=== PATIENT | female | born 1955 | race Caucasian/White ===

== ENCOUNTER 2016-06-09 09:08 | Inpatient (IN) | payer MEDICAID ==
[~2016-06-09] VITALS: Ht 154.9 cm; Wt 105.0 kg
[~2016-06-09 09:08] MED LIST: AMLO-147 PO; ASPI81TA3 PO; CLON0.2T5 PO; CLON0.5T4 PO; CRES10 PO; DOXY100T2 PO; ESCI20TA PO; FAMO20TA18 PO; FURO20TA3 PO; HYDR-3671 PO; LANT3I SC; Miconazole VAG; NEBI5TAB9 PO; NYST15PO4 TOP
--- NOTE | 2016-06-09 10:56 | RADRPT ---
PROCEDURE: XR Chest. CLINICAL INDICATION: Chest pain TECHNIQUE: Chest AP portable. COMPARISON: 12/20/2015 FINDINGS: Sternotomy and CABG. The mediastinal structures are unremarkable. There is calcification of the thoracic aorta (consiste nt with atherosclerosis). There is moderate cardiac enlargement. There is mild pulmonary venous hy pertension. No consolidation is identified. The pleural spaces are unremarkable. There are senesc ent changes of the axial skeleton. IMPRESSION: Moderate cardiac enlargement. Mild pulmonary venous hypertension. RPTAT: HGDB .Durga Mahajan MD, MD Date Time Electronically viewed and signed by .Durga Mahajan MD, MD on 06/09/2016 10:55 .B/
[2016-06-09 11:23] LABS: BASOPHILS % 0.4 % (0.0-2.0); EOSINOPHILS # 0.1 10^3/ul (0.0-0.5); EOSINOPHILS % 1.4 % (0.0-7.0); HEMATOCRIT 33.9 % (37.0-47.0); HEMOGLOBIN 11.3 g/dl (12.0-16.0); LYMPHOCYTES # 1.8 10^3/ul (0.8-2.9); LYMPHOCYTES % 24.8 % (15.0-51.0); MEAN CORPUSCULAR HEMOGLOBIN 31.9 pg (29.0-33.0); MEAN CORPUSCULAR HGB CONC 33.1 g/dl (32.0-37.0); MEAN CORPUSCULAR VOLUME 96.3 fl (82.0-101.0); MEAN PLATELET VOLUME 8.9 fl (7.4-10.4); MONOCYTE # 0.6 10^3/ul (0.3-0.9); MONOCYTES % 8.4 % (0.0-11.0); NEUTROPHIL # 4.6 10^3/ul (1.6-7.5); PLATELET COUNT 187 10^3/UL (140-440); RED BLOOD COUNT 3.52 10^6/ul (4.20-5.40); RED CELL DISTRIBUTION WIDTH 17.2 % (11.5-14.5); UNCORRECTED WBC 7.1 10^3/ul (4.8-10.8); WHITE BLOOD COUNT 7.1 10^3/ul (4.8-10.8)
[2016-06-09 11:26] LABS: ADD UMIC YES; INR 0.9; PROTIME 12.1 Sec (12.2-14.2); PT RATIO 0.9; URINE BILIRUBIN (Dip) NEGATIVE (NEGATIVE); URINE BLOOD (Dip) TRACE (NEGATIVE); URINE COLOR LT. YELLOW (YELLOW); URINE GLUCOSE (Dip) >=1000 % (NEGATIVE); URINE KETONES (Dip) NEGATIVE (NEGATIVE); URINE LEUKOCYTE ESTERASE (Dip) NEGATIVE (NEGATIVE); URINE NITRITE (Dip) NEGATIVE (NEGATIVE); URINE TOTAL PROTEIN (Dip) 2+ (NEGATIVE); URINE UROBILINOGEN (Dip) 0.2 E.U./dL (0.1-1.0)
[2016-06-09 11:27] LABS: PARTIAL THROMBOPLASTIN TIME 28.4 Sec (25.0-35.0)
[2016-06-09 11:29] LABS: ALBUMIN 3.4 g/dl (3.3-4.9)
[2016-06-09 11:30] LABS: CONDITION 1; LH ANALYZER COMMENTS 1
[2016-06-09 11:39] LABS: BACTERIA,URINE RARE; URINE RBCS 0-2 /HPF (0)
--- NOTE | 2016-06-09 11:39 | ERD ---
ER Documentation Chief Complaint Date/Time DATE: 06/09/16 TIME: 11:30 Chief Complaint UNABLE TO URINATE FOR 2 DAYS,FLANK PAIN,HX OF KIDNEY STENT HPI Patient is a difficult historian but is 60 years old history of CABG who presents the emergency room with multiple complaints. Her main complaint is that she is unable to urinate for 2 days. She describes right-sided flank pain that is dull and constant. She states she has a history of kidney stones and a kidney stent. She has also describing shortness of breath and thinks that she "might have fluid on her lungs ". She denies any lower extremity swelling, no chest pain, no dyspnea on exertion. ROS All systems reviewed and are negative except as per history of present illness. Medications Home Meds Active Scripts Rosuvastatin Calcium* (Crestor*) 10 Mg Tablet, 10 MG PO QHS, #30 TAB 2 Refills Prov:RONNYHORACIO Maria 12/27/15 Reported Medications Canagliflozin (Invokana) 300 Mg Tablet, 300 MG PO DAILY, TAB 06/09/16 Gabapentin* (Gabapentin*) 600 Mg Tablet, 600 MG PO TID, #90 TAB 06/09/16 Pregabalin* (Lyrica*) 150 Mg Capsule, 150 MG PO QHS, CAP 06/09/16 Valacyclovir Hcl* (Valacyclovir Hcl*) 500 Mg Tablet, 1000 MG PO BID, TAB 06/09/16 Insulin Lispro (Humalog) 100 Unit/1 Ml Cartridge, 25 UNIT SQ TID 06/09/16 Insulin Glargine* (Lantus*) 100 Unit/Ml Soln, 56 UNIT SC BID, #1 VIAL 06/09/16 Esomeprazole Mag Trihydrate (Nexium) 40 Mg Capsule.dr, 40 MG PO DAILY, #30 CAP 06/09/16 Lorazepam* (Lorazepam*) 1 Mg Tablet, 1-2 MG PO QHS Y for ANXIETY, #30 TAB 06/09/16 Nebivolol Hcl* (Bystolic*) 20 Mg Tablet, 20 MG PO DAILY, #30 TAB 06/09/16 Aspirin* (Aspirin* EC) 81 Mg Tablet.dr, 81 MG PO DAILY, TAB 06/09/16 Clonidine Hcl* (Clonidine Hcl*) 0.1 Mg Tab, 0.1 MG PO QHS, TAB 06/09/16 Discontinued Reported Medications Clonidine Hcl* (Clonidine Hcl*) 0.2 Mg Tablet, 0.2 MG PO TID Y for ELEVATED BLOOD PRESSURE, TAB 12/20/15 Discontinued Scripts Furosemide* (Furosemide*) 20 Mg Tablet, 20 MG PO DAILY, #60 TAB 2 Refills Prov:RONNYHORACIO S. 12/27/15 Doxycycline* (Vibramycin*) 100 Mg Tab, 100 MG PO BID for 7 Days, #14 TAB Prov:RONNYHORACIO S. 12/27/15 Famotidine* (Famotidine*) 20 Mg Tablet, 20 MG PO Q12, #60 TAB 3 Refills Prov:BETZAIDAHORACIO S. 12/27/15 Insulin Glargine* (Lantus*) 100 Unit/Ml Soln, 46 UNIT SC BID, #60 3 Refills Prov:BETZAIDAHORACIO S. 12/27/15 [Miconazole] 1 SUPP SUPP No Conflict Check, 1 SUPP VAG HS for 30 Days, #1 2 Refills Prov:RONNYHORACIO S. 12/27/15 Nebivolol* (Bystolic*) 5 Mg Tab, 5 MG PO BID, #60 TAB 4 Refills Prov:BETZAIDAHORACIO S. 12/27/15 Nystatin* (Nystop*) 15 Gm Powder, 1 APPLIC TOP BID for 30 Days Prov:RONNYHORACIO S. 12/27/15 Hydralazine Hcl* (Hydralazine Hcl*) 25 Mg Tab, 25 MG PO Q8, #90 TAB 4 Refills Prov:RONNYHORACIO S. 12/27/15 Amlodipine Besylate* (Amlodipine Besylate*) 10 Mg Tablet, 10 MG PO DAILY, #30 TAB 3 Refills Prov:BETZAIDAHORACIO S. 12/27/15 Clonazepam* (Clonazepam*) 0.5 Mg Tablet, 0.5 MG PO QHS for 30 Days, #30 TAB 3 Refills Prov:RONNYHORACIO S. 12/27/15 Escitalopram Oxalate* (Lexapro*) 20 Mg Tablet, 20 MG PO DAILY, #30 TAB 3 Refills Prov:RONNYHORACIO S. 12/27/15 Aspirin* (Aspirin* Chew) 81 Mg Tab.chew, 81 MG PO DAILY, #30 TAB.CHEW 2 Refills Prov:HORACIO JEFFERSON. 12/27/15 Allergies Allergies: Coded Allergies: Sulfa (Sulfonamide Antibiotics) (Verified Allergy, Mild, 06/09/16) PMhx/Soc History of Surgery: Yes (CABG) Anesthesia Reaction: No Hx Respiratory Disorders: No Hx Cardiac Disorders: Yes (ID) Hx Psychiatric Problems: Yes (ANXIETY.) Hx Miscellaneous Medical Probl: Yes (CAD s/p CABG, DM2, neuropathy, renal stent , HTN, morbid obesity, esotropia) Hx Alcohol Use: No Hx Substance Use: No Hx Tobacco Use: No Smoking Status: Never smoker FmHx Family History: No diabetes Physical Exam Vitals Vital Signs Date Time Temp Pulse Resp B/P Pulse Ox O2 Delivery O2 Flow Rate FiO2 06/09/16 11:21 96.7 70 16 186/76 100 Room Air 06/09/16 09:13 98.1 63 18 204/86 96 Physical Exam General: Obese female, no distress Head: Normocephalic, atraumatic. Eyes: Pupils equally reactive, EOM intact ENT: Moist mucous membranes Neck: Supple, no lymphadenopathy Respiratory: Lungs clear bilaterally, no distress Cardiovascular: RRR, no murmurs, rubs, or gallops Abdominal: Soft, non-tender, non-distended, no peritoneal signs : Deferred MSK: No edema, no unilateral swelling, 5/5 strength Neurologic: Alert and oriented, moving all extremities, normal speech, no focal weakness, no cerebellar signs Skin: No rash Psych: Normal mood Result Diagram: 06/09/16 1015 06/09/16 1015 Results 24 hrs Laboratory Tests Test 06/09/16 10:15 Activated Partial Thromboplast Time 28.4Sec Alanine Aminotransferase (ALT/SGPT) 27IU/L Albumin 3.4g/dl Albumin/Globulin Ratio 1.13 Alkaline Phosphatase 73IU/L Anion Gap 16 Aspartate Amino Transf (AST/SGOT) 15IU/L B-Type Natriuretic Peptide 2220PG/ML Basophils # 0.010^3/ul Basophils % 0.4% Blood Morphology Comment Blood Urea Nitrogen 31mg/dl Calcium Level 8.2mg/dl Carbon Dioxide Level 25mmol/L Chloride Level 104mmol/L Creatinine 2.04mg/dl Direct Bilirubin 0.00mg/dl Eosinophils # 0.110^3/ul Eosinophils % 1.4% Globulin 3.00g/dl Glucose Level 198mg/dl Hematocrit 33.9% Hemoglobin 11.3g/dl INR International Normalized Ratio 0.90 Indirect Bilirubin 0.0mg/dl Lipase 151U/L Lymphocytes # 1.810^3/ul Lymphocytes % 24.8% Mean Corpuscular Hemoglobin 31.9pg Mean Corpuscular Hemoglobin Concent 33.1g/dl Mean Corpuscular Volume 96.3fl Mean Platelet Volume 8.9fl Monocytes # 0.610^3/ul Monocytes % 8.4% Neutrophils # 4.610^3/ul Neutrophils % 65.0% Nucleated Red Blood Cells # 0.010^3/ul Nucleated Red Blood Cells % 0.0/100WBC Platelet Count 77043^3/UL Potassium Level 4.5mmol/L Prothrombin Time 12.1Sec Prothrombin Time Ratio 0.9 Red Blood Count 3.5210^6/ul Red Cell Distribution Width 17.2% Sodium Level 140mmol/L Total Bilirubin 0.0mg/dl Total Protein 6.4g/dl Urine Amorphous Urates FEW Urine Bacteria RARE Urine Bilirubin NEGATIVE Urine Clarity CLEAR Urine Color LT. YELLOW Urine Epithelial Cells OCCASIONAL Urine Glucose >=1000% Urine Hemoglobin TRACE Urine Ketones NEGATIVE Urine Leukocyte Esterase NEGATIVE Urine Microscopic RBC 0-2/HPF Urine Microscopic WBC NONE SEEN/HPF Urine Nitrite NEGATIVE Urine Specific Coleman 1.020 Urine Total Protein 2+ Urine Urobilinogen 0.2 E.U./dL Urine pH 6.0 White Blood Count 7.110^3/ul Current Medications Medications (Trade) Dose Ordered Sig/Selivn Route PRN Reason Start Time Stop Time Status Last Admin Dose Admin Furosemide (Lasix) 40 mg ONCE ONCE IV 06/09/16 12:30 06/09/16 12:31 DC Ondansetron HCl (Zofran Inj) 4 mg BRIDGE ORDER PRN IV NAUSEA AND/OR VOMITING 06/09/16 12:30 06/10/16 12:29 Acetaminophen (Tylenol Tab) 650 mg ER BRIDGE PRN PO MILD PAIN/FEVER 06/09/16 12:30 06/10/16 12:29 Procedures/MDM EKG, MONITORS, & DIAGNOSTIC IMAGING: EKG: I reviewed and interpreted a 12-lead EKG. Rhythm: Normal sinus rhythm Ectopy: None Intervals: No abnormalities ST segments: No elevations or depressions T waves: No contiguous inversions Chest x-ray: I reviewed and interpreted a 1 view of the chest Mediastinum: No enlargement Cardiac silhouette: No cardiomegaly Airspace: Pulmonary edema Bones: No evidence of fracture CT abdomen and pelvis: IMPRESSION: 1. Mild atelectasis at the lung bases posteriorly. 2. Prior cardiac surgery. 3. Atherosclerosis. 4. Calcified fibroids in the uterus. 5. Large right adnexal mass measuring 6.7 x 8.8 x 7.4 cm which may be due to an ovarian mass or pedunculated fibroid. Correlation with pelvic ultrasound or MRI should be considered. 6. Flynn catheter in the bladder. 7. Degenerative changes of the spine. Pelvic US: Pending and to be followed by admitting MD LAB INTERPRETATION: Creatinine is slightly above baseline of 1.5, the patient's BNP is slightly elevated but again consistent with baseline. MEDICAL DECISION MAKING: The patient has myriad complaints. Her main complaint is urinary retention likely secondary to age or idiopathic etiology. She denies any new medications other than Lyrica. Adverse reactions include urinary incontinence but not necessarily retention. The patient does have a history of kidney stone, consider stent migration other acute intra-abdominal process such as mass. Given her age CT imaging would be appropriate. She also thinks that there is fluid on her lungs but does not describe any evidence of CHF. Her lungs are clear and nonlabored. Chest x-ray, troponin, EKG, BNP would be appropriate. ER COURSE: Output of greater than 900 cc of urine The patient has a slight bump in creatinine, the patient has evidence of mild pulmonary edema but BNP is consistent with baseline. No evidence of respiratory failure, her shortness of breath is minimal. The patient was given Lasix. This is not consistent with decompensated heart failure. Outpatient management for this would be reasonable. However the patient has a large adnexal mass. This is concerning for malignancy. No evidence of PE. A pelvic ultrasound has been ordered. Her primary care physician has visited her at the bedside and would like to admit the patient for MRI imaging and further workup. I believe this is reasonable. While the patient is being given Lasix for mild volume overload I believe this is an outpatient process therefore I do not believe the patient requires telemetry monitoring. No evidence of ACS I kept the patient and/or family informed of laboratory and diagnostic imaging results throughout the emergency room course. DISPOSITION PLAN: Medical surgical admission CONSULTATION: Accepting care team and consultations: I discussed the current laboratory data, diagnostic imaging and emergency care provided. Admitting team: Dr. Suarez Admitting team indication: Insurance directed Departure Diagnosis: Primary Impression: Retention of urine Additional Impressions: Pulmonary edema Chronicity: chronic Qualified Code: J81.1 - Chronic pulmonary edema Acute renal insufficiency Adnexal mass Condition: Stable DAYNE SALAS MD Jun 09, 2016 11:38
[2016-06-09] MEDS ORDERED: CLON-379 PO (11:40)
[2016-06-09] MEDS ORDERED: ASPI-664 PO (11:40)
[2016-06-09] MEDS ORDERED: NEBI20TA2 PO (11:41)
[2016-06-09] MEDS ORDERED: LORA1TAB PO (11:42)
[2016-06-09 11:44] LABS: POTASSIUM 4.5 mmol/L (3.5-5.1)
[2016-06-09 11:45] LABS: ALBUMIN/GLOBULIN RATIO 1.13; CALCIUM 8.2 mg/dl (8.4-10.2); CREATININE 2.04 mg/dl (0.44-1.00); TOTAL PROTEIN 6.4 g/dl (6.1-8.1)
[2016-06-09] MEDS ORDERED: LANT3I SC (11:46)
[2016-06-09] MEDS ORDERED: ESOM40CA PO (11:46)
[2016-06-09] MEDS ORDERED: INSU100C SQ (11:47)
[2016-06-09] MEDS ORDERED: VALA500T PO (11:48)
[2016-06-09] MEDS ORDERED: GABA-526 PO (11:49)
[2016-06-09] MEDS ORDERED: PREG150C PO (11:49)
[2016-06-09] MEDS ORDERED: CANA300T PO (11:51)
--- NOTE | 2016-06-09 11:56 | RADRPT ---
AMENDMENT: 06/12/2016 2:01:08 PM Ethan Villanueva MD Comparison is made with prior CT scan of the abdomen and pelvis dated 11/23/2009. The large right adnexal mass measures 6.7 x 8.8 x 7.4 cm on the current study and measured 3.7 x 4.6 x 4.8 cm on 11/23/2009. Call report: A call report of the findings was made to Dr. Suarez on 06/12/2016 at 0900 hours. PROCEDURE: CT Abdomen and Pelvis without contrast. CLINICAL INDICATION: Abdominal and pelvic pain. Flank pain. Inability to urinate for 2 days. TECHNIQUE: CT scan of the abdomen and pelvis without contrast was performed. Coronal and sagittal reformatted images were obtained from the axial source images. Images were reviewed on a high-[employer] PACS workstation. Total exam DLP is 1356.94 mGy-cm. CTDIvol is 23.50 mGy. One or more of the following dose reduction techniques were used: Automated exposure control, adjustment of the mA and/ or kV according to patient size, use of iterative reconstruction technique. COMPARISON: CT scan of the chest dated 12/27/2015. Renal ultrasound dated 12/25/2015. FINDINGS: There is mild atelectasis at both lung bases posteriorly. The lung bases are otherwise normal. The re is no pleural effusion or pericardial effusion. The heart size is normal. Epicardial pacing michael ctrodes and sternal wires are noted. The liver is normal in size and attenuation. There is no focal hepatic lesion. The gallbladder and bile ducts are normal. The spleen is normal in size. There is no focal splenic lesion. Both adrenals are normal with no enlargement or mass. The pancreas is unremarkable with no mass or evidence of pancreatitis. There is no renal mass or hydronephrosis. There is no renal calculus or ureteral calculus. The abdominal aorta is not dilated. There is calcification in the aorta consistent with atherosclero sis. There is no retroperitoneal lymphadenopathy or mass. There is no pelvic lymphadenopathy. Multiple uterine masses are present consistent with fibroids. Several of the fibroids are calcified. There is a large right adnexal mass measuring 6.7 x 8.8 x 7. 4 cm in AP, transverse, and cranial caudal dimensions which may be due to an ovarian mass or a pedun culated fibroid. There is a Flynn catheter in the urinary bladder. The periappendiceal region is unremarkable with no evidence of appendicitis. The bowel and mesentery are normal. There is no free fluid or free gas. There are degenerative changes of the spine. There is no fracture or lytic lesion. IMPRESSION: 1. Mild atelectasis at the lung bases posteriorly. 2. Prior cardiac surgery. 3. Atherosclerosis. 4. Calcified fibroids in the uterus. 5. Large right adnexal mass measuring 6.7 x 8.8 x 7.4 cm which may be due to an ovarian mass or ped unculated fibroid. Correlation with pelvic ultrasound or MRI should be considered. 6. Flynn catheter in the bladder. 7. Degenerative changes of the spine. RPTAT: QQ .Ethan Villanueva MD, Date Time Electronically viewed and signed by .Ethan Villanueva MD, on 06/12/2016 14:01 .R/
[2016-06-09] MEDS ORDERED: FUROSEMIDE 40 MG INJ IV ONE (12:30)
[2016-06-09] MEDS ORDERED: ACETAMINOPHEN 325 MG TAB PO PRN (12:30)
[2016-06-09] MEDS ORDERED: ONDANSETRON 4 MG INJ IV PRN (12:30)
--- NOTE | 2016-06-09 14:38 | RADRPT ---
PROCEDURE: US Pelvis CLINICAL INDICATION: right adnexal mass TECHNIQUE: Multiple sonographic images of the pelvis were obtained utilizing a transabdominal and endovaginal technique. The images were reviewed on a PACS workstation. COMPARISON: CT abdomen/pelvis from the same date FINDINGS: The uterus measures 8.3 x 4.1 x 8.6 cm. The endometrial echo complex is not visualized. Multiple dystrophic calcifications are noted in the myometrium measuring up to 4.3 cm which are like ly from degenerated fibroids. The right ovary measures 8.3 x 6.9 x 9.0 cm. The left ovary is not visualized. There is normal vascu lar flow in the right ovary. There is a complex multi septated lesion in the right ovary measuring up to 7.3 cm. Possible vascul ar flow is noted within the septations which are both thick and thin.. No significant pelvic free fluid is identified. IMPRESSION: Complex cystic lesion in the right ovary with multiple thickened and possibly vascular septations me asuring up to 7.3 cm, as above. This lesion correlates with the lesion seen in the right adnexa on the CT study from the same date and is concerning for malignancy. An MRI of the pelvis without and with intravenous contrast is recommended for further evaluation. Multiple dystrophic calcifications in the myometrium measuring up to 4.3 cm are likely from degenera vladimir fibroids. Nonvisualization of the endometrium and left ovary. RPTAT: EE Physician Nancy Date Time Electronically viewed and signed by Physician Nancy on 06/09/2016 14:38 /
[2016-06-09] MEDS ORDERED: LORAZEPAM 1 MG TAB PO PRN (18:00)
--- NOTE | 2016-06-09 18:21 | RADRPT ---
PROCEDURE: Renal US. CLINICAL INDICATION: Renal insufficiency TECHNIQUE: Multiple sonographic images of the kidneys were obtained. The images were reviewed on a PACS workstation. COMPARISON: December 25, 2015 FINDINGS: The right kidney measures 8.6 cm. The left kidney measures 10.4 cm. Increased cortical echogenicity is identified in both kidneys. No masses, stones or hydronephrosis are identified. The bladder is filled with a small amount of urine and has an unremarkable appearance. IMPRESSION: Small right kidney. Echogenic kidneys suggesting medical renal disease. RPTAT: AA .Christopher Roman MD, MD Date Time Electronically viewed and signed by .Christopher Roman MD, MD on 06/09/2016 18:20 .P/
[2016-06-09] MEDS ORDERED: GLUCOSE GEL 15 GRAM TUBE PO PRN ×2 (18:30)
[2016-06-09] MEDS ORDERED: DEXTROSE 50% 50 ML SYRINGE IV PRN ×2 (18:30)
[2016-06-09] MEDS ORDERED: GLUCOSE GEL 15 GRAM TUBE BUCCAL PRN (18:30)
[2016-06-09] MEDS ORDERED: GLUCAGON 1 MG INJ IM PRN (18:30)
--- NOTE | 2016-06-09 18:46 | HP ---
DATE OF ADMISSION: 06/09/2016 CHIEF COMPLAINT: Urinary retention. HISTORY OF PRESENT ILLNESS: This is a 60-year-old female with a past medical history of coronary ar marilin disease, status post CABG; history of diabetes; history of chronic kidney disease stage IV with a baseline creatinine around 2 mg/dL; history of renal artery stenosis, status post stent placement ; history of hypertension; morbid obesity; dyslipidemia; nystagmus who presents to [facility] with inability to urinate. The patient was noted over the last 2 days of having difficu lty urinating. She stated that she was unable to urinate. During this time, the patient also was d escribing increased shortness of breath, worsening lower extremity edema. As a result, she came int [facility]. Upon arrival, the patient had Flynn catheter placed with greater th an 900 mL of urinary output. The patient then had a CT scan of the abdomen and pelvis which showed findings of a 6 x 7 cm ovarian mass, calcified fibroid uterus and previous history of ____. A pelvi c ultrasound was obtained which showed a complex cystic lesion in the right ovary of 7.3 cm concerni ng for possible malignancy. There were also dystrophic calcifications in myometrium. The patient h ad a chest x-ray which showed findings of pulmonary congestion. The patient in the emergency room w as given IV Lasix. The patient herself denies any hemoptysis, hemetemesis or hematochezia, denies a ny frothy urine. PAST MEDICAL HISTORY: Stated above. History of coronary artery disease, diabetes, neuropathy, sisi l artery stenosis, hypertension, morbid obesity, dyslipidemia. PAST SURGICAL HISTORY: Status post CABG, status post renal arterial stent placement. FAMILY HISTORY: No family history of kidney disease, heart disease. SOCIAL HISTORY: Does not drink, smoke or do drugs. MEDICATIONS: The patient's medication reviewed and reconciled. REVIEW OF SYSTEMS: A 14-point review of systems was conducted. Pertinent positives stated in HPI, otherwise negative. PHYSICAL EXAMINATION: VITAL SIGNS: Blood pressure is currently 183/90, respirations 16, pulse 63, temperature 98.6. HEENT: Head is normocephalic. NECK: Supple. HEART: Regular rate. LUNGS: Diminished breath sounds at the base. ABDOMEN: Soft, nontender to palpation. No rebound, guarding. EXTREMITIES: Negative for clubbing, cyanosis. Positive venous insufficiency changes, positive dale a. DERMATOLOGIC: No rashes. MUSCULOSKELETAL: No joint effusion. NEUROLOGIC: No change in exam. LABORATORY DATA: White count 7.1, hemoglobin 11.3, hematocrit of 33.9, platelet count 187. Sodium 140, potassium 4.5, chloride 104, BUN 31, creatinine 2.04. IMAGING STUDIES: Stated in HPI. ASSESSMENT AND PLAN: This is a 60-year-old female who presents with: 1. Nonoliguric acute kidney injury on top of chronic kidney disease with a previous baseline renal function around 1.5 to 2 mg/dL. Etiology of acute kidney injury is possibly secondary to urinary re tention, obstructive uropathy versus hemodynamics, possible cardiorenal syndrome. The patient's uri nalysis shows findings of proteinuria but no pyuria, no hematuria, and a CT scan of the abdomen and pelvis showed no evidence of hydronephrosis. Plan at this point is to check a renal ultrasound. Wi ll repeat UA with microanalysis. Will check urine electrolytes. Will continue supportive care, tanya ally dose medications, avoid nephrotoxins, monitor renal function closely. 2. Urinary retention. Underlying etiology is unclear. The patient is status post Flynn catheter p lacement with good urinary output. Will place a urology consult for evaluation. 3. A right ovarian cystic mass. Etiology is unclear, concerning for possible malignancy. Will fol low up with Dr. Suarez for further evaluation. May consider a gynecologic consult. Will monitor closely. 4. Acute decompensated diastolic heart failure. The patient noted to have pulmonary congestion, lo wer extremity edema. The patient is status post Lasix; will continue. Will place cardiology consul t for evaluation. 5. History of coronary artery disease, status post coronary artery bypass graft. Continue current medical management. 6. Diabetes. Will continue Accu-Cheks, insulin sliding scale, continue Lantus. 7. Anemia. Continue to monitor hemoglobin and hematocrit levels. 8. Chronic kidney disease stage IIIB/IV. Etiology is multifactorial secondary to diabetes, hyperte nsion. The patient is currently in acute kidney injury as stated above. Continue medical managemen t. 9. Morbid obesity. Continue dietary modification. 10. Dyslipidemia. Continue statin therapy. 11. Obstructive sleep apnea. Continue supplemental oxygen. Consider a pulmonary consult for evalu ation. 12. Hypertension. Continue current blood pressure regimen. Will adjust medications as needed. 13. History of peripheral vascular disease. Continue current medical management. Please note I spent up to 30 minutes of [id number] time with the patient discussing code status. The patient is FULL CODE. Dictated By: CRISTA GAINES/BIRGIT Conf#: [id number] DID#: [id number]
[2016-06-09 19:00] VITALS: TEMP 97
--- NOTE | 2016-06-09 19:13 | CONS ---
Date/Time of Note Date/Time of Note DATE: 06/09/16 TIME: 19:12 Assessment/Plan Assessment/Plan Chief Complaint/Hosp Course 1. A right ovarian cystic mass. Etiology is unclear, concerning for possible malignancy. check ca 125 REVIEW RADIOLOGY 2. Anemia. Continue to monitor hemoglobin and hematocrit levels. PROCEED WITH ANEMIA W-UP OBSERVE FOR BLEEDING AND HEMOLYSIS 3. Nonoliguric acute kidney injury on top of chronic kidney disease with a previous baseline renal function around 1.5 to 2 mg/dL. Etiology of acute kidney injury is possibly secondary to urinary retention, obstructive uropathy versus hemodynamics, possible cardiorenal syndrome. The patient's urinalysis shows findings of proteinuria but no pyuria, no hematuria, and a CT scan of the abdomen and pelvis showed no evidence of hydronephrosis. Plan at this point is to check a renal ultrasound. Will repeat UA with microanalysis. Will check urine electrolytes. Will continue supportive care, renally dose medications, avoid nephrotoxins, monitor renal function closely. 4 Urinary retention. Underlying etiology is unclear. The patient is status post Flynn catheter placement with good urinary output. Will place a urology consult for evaluation. 5. Acute decompensated diastolic heart failure. The patient noted to have pulmonary congestion, lower extremity edema. The patient is status post Lasix; will continue. Will place cardiology consult for evaluation. 6. History of coronary artery disease, status post coronary artery bypass graft. Continue current medical management. 7. Diabetes. Will continue Accu-Cheks, insulin sliding scale, continue Lantus. 8. Chronic kidney disease stage IIIB/IV. Etiology is multifactorial secondary to diabetes, hypertension. The patient is currently in acute kidney injury as stated above. Continue medical management. 9. Morbid obesity. Continue dietary modification. 10. Dyslipidemia. Continue statin therapy. 11. Obstructive sleep apnea. Continue supplemental oxygen. Consider a pulmonary consult for evaluation. 12. Hypertension- POORLY CONTROLLED Continue current blood pressure regimen. Will adjust medications as needed. CARDIOLOGY EVAL 13. History of peripheral vascular disease. Continue current medical management. 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 SEVERE DJD/OA WITH CHRONIC PAIN 16. GI PROBLEMS- WITH ABD PAIN, DIARRHEA/ ALTERNATING WITH CONSTIPATION GI EVAL Problems: Consultation Date/Type/Reason Admit Date/Time 06/09/16 Date of Consultation: Jun 09, 2016 Type of Consultation: [facility] Reason for Consultation ovarian mass Referring Provider: CRISTA HERNANDEZ of Present Illness This is a 60-year-old female with a past medical history of coronary artery disease, status post CABG; history of diabetes; history of chronic kidney disease stage IV with a baseline creatinine around 2 mg/dL; history of renal artery stenosis, status post stent placement; history of hypertension; morbid obesity; dyslipidemia; nystagmus who presents to [facility] with inability to urinate. The patient was noted over the last 2 days of having difficulty urinating. She stated that she was unable to urinate. During this time, the patient also was describing increased shortness of breath, worsening lower extremity edema. As a result, she came into [facility]. Upon arrival, the patient had Flynn catheter placed with greater than 900 mL of urinary output. The patient then had a CT scan of the abdomen and pelvis which showed findings of a 6 x 7 cm ovarian mass, calcified fibroid uterus A pelvic ultrasound was obtained which showed a complex cystic lesion in the right ovary of 7.3 cm concerning for possible malignancy. There were also dystrophic calcifications in myometrium. The patient had a chest x-ray which showed findings of pulmonary congestion. The patient in the emergency room was given IV Lasix. The patient herself denies any hemoptysis, hematemesis or hematochezia, denies any frothy urine. NO WT LOSS, + ABD PAIN + INTERMITTENT DIARRHEA AND CONSTIPATIONS PAST MEDICAL HISTORY: Stated above. History of coronary artery disease, diabetes, neuropathy, renal artery stenosis, hypertension, morbid obesity, dyslipidemia ,SEVERE DJD/OA, CHRONIC PAIN 2 TO NEUROPATHY AND DJD/OA, LEGAL BLINDNESS PAST SURGICAL HISTORY: Status post CABG, status post renal arterial stent placement. FAMILY HISTORY: No family history of kidney disease, heart disease. SOCIAL HISTORY: Does not drink, smoke or do drugs. MEDICATIONS: The patient's medication reviewed and reconciled. REVIEW OF SYSTEMS: A 14-point review of systems was conducted. Pertinent positives stated in HPI, otherwise negative. Social History Smoking Status: Never smoker Exam/Review of Systems Vital Signs Vitals Vital Signs Date Time Temp Pulse Resp B/P Pulse Ox O2 Delivery O2 Flow Rate FiO2 06/09/16 19:00 97.0 66 22 122/92 Nasal Cannula 06/09/16 17:00 100 2.0 Exam PHYSICAL EXAMINATION: HEENT: Head is normocephalic. NECK: Supple. HEART: Regular rate. LUNGS: Diminished breath sounds at the base. ABDOMEN: Soft, tender to palpation in low abd quadrants BL, No rebound, guarding. EXTREMITIES: Negative for clubbing, cyanosis. Positive venous insufficiency changes, positive edema. DERMATOLOGIC: No rashes. MUSCULOSKELETAL: No joint effusion. NEUROLOGIC: No change in exam. Results Result Diagram: 06/09/16 1015 06/09/16 1015 Results 24 hrs Laboratory Tests Test 06/09/16 10:15 06/09/16 15:25 Activated Partial Thromboplast Time 28.4 Alanine Aminotransferase (ALT/SGPT) 27 Albumin 3.4 Albumin/Globulin Ratio 1.13 Alkaline Phosphatase 73 Anion Gap 16 Aspartate Amino Transf (AST/SGOT) 15 B-Type Natriuretic Peptide 2220 H Basophils # 0.0 Basophils % 0.4 Blood Morphology Comment Blood Urea Nitrogen 31 H CA 125 Antigen 11.4 Calcium Level 8.2 L Carbon Dioxide Level 25 Chloride Level 104 Creatinine 2.04 H Direct Bilirubin 0.00 Eosinophils # 0.1 Eosinophils % 1.4 Globulin 3.00 Glucose Level 198 Hematocrit 33.9 L Hemoglobin 11.3 L INR International Normalized Ratio 0.90 Indirect Bilirubin 0.0 Lipase 151 Lymphocytes # 1.8 Lymphocytes % 24.8 Mean Corpuscular Hemoglobin 31.9 Mean Corpuscular Hemoglobin Concent 33.1 Mean Corpuscular Volume 96.3 Mean Platelet Volume 8.9 Monocytes # 0.6 Monocytes % 8.4 Neutrophils # 4.6 Neutrophils % 65.0 Nucleated Red Blood Cells # 0.0 Nucleated Red Blood Cells % 0.0 Platelet Count 187 # Potassium Level 4.5 Prothrombin Time 12.1 L Prothrombin Time Ratio 0.9 Red Blood Count 3.52 L Red Cell Distribution Width 17.2 H Sodium Level 140 Total Bilirubin 0.0 L Total Protein 6.4 Urine Amorphous Urates FEW Urine Bacteria RARE Urine Bilirubin NEGATIVE Urine Clarity CLEAR Urine Color LT. YELLOW Urine Epithelial Cells OCCASIONAL Urine Glucose >=1000 Urine Hemoglobin TRACE Urine Ketones NEGATIVE Urine Leukocyte Esterase NEGATIVE Urine Microscopic RBC 0-2 Urine Microscopic WBC NONE SEEN Urine Nitrite NEGATIVE Urine Specific [place] 1.020 Urine Total Protein 2+ H Urine Urobilinogen 0.2 E.U./dL Urine pH 6.0 White Blood Count 7.1 # Bedside Glucose 161 Medications Medications Current Medications Aspirin (Halfprin) 81 mg DAILY PO ; Start 06/10/16 at 09:00 Gabapentin (Neurontin) 600 mg TID PO ; Start 06/09/16 at 21:00 Insulin Glargine (Lantus) 25 unit BID SC ; Start 06/09/16 at 21:00; Status UNV Lorazepam (Ativan) 1 mg QHS PRN PO ANXIETY; Start 06/09/16 at 18:00 Miscellaneous Medication (Bystolic) 20 mg DAILY PO ; Start 06/10/16 at 09:00; Status UNV Pregabalin (Lyrica) 150 mg QHS PO ; Start 06/09/16 at 21:00; Status UNV Valacyclovir HCl (Valtrex) 1,000 mg BID PO ; Start 06/09/16 at 21:00; Status UNV Furosemide (Lasix) 40 mg DAILY PO ; Start 06/10/16 at 09:00 Miscellaneous Information 1 ea NOTE XX ; Start 06/09/16 at 18:30 Glucose (Glutose) 15 gm Q15M PRN PO DECREASED GLUCOSE; Start 06/09/16 at 18:30 Glucose (Glutose) 22.5 gm Q15M PRN PO DECREASED GLUCOSE; Start 06/09/16 at 18: 30 Dextrose (D50w Syringe) 25 ml Q15M PRN IV DECREASED GLUCOSE; Start 06/09/16 at 18:30 Dextrose (D50w Syringe) 50 ml Q15M PRN IV DECREASED GLUCOSE; Start 06/09/16 at 18:30 Glucagon (Glucagen) 1 mg Q15M PRN IM DECREASED GLUCOSE; Start 06/09/16 at 18:30 Glucose (Glutose) 15 gm Q15M PRN BUCCAL DECREASED GLUCOSE; Start 06/09/16 at 18 :30 SHARLA SOUSA MD Jun 09, 2016 19:13
[2016-06-09 19:57] VITALS: BP 217/86; RESP 20
[2016-06-09] MEDS: AMLODIPINE 10 MG TAB PO SCH (20:30)
[2016-06-09] MEDS: GABAPENTIN 300 MG CAP PO SCH (20:44)
[2016-06-09] MEDS: PREGABALIN 75 MG CAP PO SCH (20:44)
[2016-06-09] MEDS: VALACYCLOVIR 500 MG TAB PO SCH (20:45)
[2016-06-09] MEDS: INSULIN ASPART [NOVOLOG] 3 ML PEN SC SCH (20:46)
[2016-06-09 22:00] VITALS: Ht 154.9 cm; Wt 105.0 kg
[2016-06-09 22:25] VITALS: BP 191/90; PULSE 69; RESP 18
[2016-06-09] MEDS: INSULIN GLARGINE [LANtus] 3 ML PEN SC SCH (22:29)
[2016-06-10] VITALS (16 sets, daily range): BP systolic 131–232; BP diastolic 62–113; PULSE 55–61; RESP 16–24
[2016-06-10] MEDS: HYDROmorphONE 1 MG/ML SYG IV PRN ×2 (02:10→23:36)
[2016-06-10] MEDS: METHYLDOPA 500 MG TAB PO SCH ×3 (04:02→21:40)
[2016-06-10] MEDS: NEBIVOLOL 5 MG TAB PO SCH (08:22)
[2016-06-10] MEDS: ASPIRIN (EC) 81 MG TAB PO SCH (08:22)
[2016-06-10] MEDS: GABAPENTIN 300 MG CAP PO SCH ×3 (08:24→21:02)
[2016-06-10] MEDS: AMLODIPINE 10 MG TAB PO SCH ×2 (08:28→15:02)
[2016-06-10] MEDS: VALACYCLOVIR 500 MG TAB PO SCH ×2 (08:29→21:39)
[2016-06-10] MEDS ORDERED: FUROSEMIDE 40 MG TAB PO SCH (09:00)
[2016-06-10] MEDS: INSULIN ASPART [NOVOLOG] 3 ML PEN SC SCH ×4 (09:07→21:28)
[2016-06-10] MEDS: INSULIN GLARGINE [LANtus] 3 ML PEN SC SCH ×2 (09:59→21:17)
[2016-06-10 10:32] LABS: BASOPHILS % 0.4 % (0.0-2.0); EOSINOPHILS # 0.1 10^3/ul (0.0-0.5); EOSINOPHILS % 1.3 % (0.0-7.0); HEMATOCRIT 35.6 % (37.0-47.0); HEMOGLOBIN 11.7 g/dl (12.0-16.0); LYMPHOCYTES # 1.5 10^3/ul (0.8-2.9); LYMPHOCYTES % 24.2 % (15.0-51.0); MEAN CORPUSCULAR HEMOGLOBIN 31.9 pg (29.0-33.0); MEAN CORPUSCULAR VOLUME 96.7 fl (82.0-101.0); MONOCYTE # 0.6 10^3/ul (0.3-0.9); MONOCYTES % 8.7 % (0.0-11.0); NEUTROPHIL # 4.2 10^3/ul (1.6-7.5); NEUTROPHILS % 65.4 % (39.0-77.0); PLATELET COUNT 191 10^3/UL (140-440); RED BLOOD COUNT 3.68 10^6/ul (4.20-5.40); RED CELL DISTRIBUTION WIDTH 16.1 % (11.5-14.5); UNCORRECTED WBC 6.4 10^3/ul (4.8-10.8); WHITE BLOOD COUNT 6.4 10^3/ul (4.8-10.8)
[2016-06-10 10:34] LABS: CONDITION 1; LH ANALYZER COMMENTS 1
[2016-06-10 10:50] LABS: POTASSIUM 4.6 mmol/L (3.5-5.1)
[2016-06-10 10:52] LABS: CREATININE 1.71 mg/dl (0.44-1.00)
[2016-06-10 10:53] LABS: CALCIUM 8.3 mg/dl (8.4-10.2); MAGNESIUM 1.9 mg/dl (1.7-2.5); PHOSPHORUS 4.2 mg/dl (2.5-4.9)
--- NOTE | 2016-06-10 10:58 | PN ---
DATE: 06/10/2016 SUBJECTIVE: The patient is stable. The patient is noncompliant with medications. The patient this morning refused blood draws. No other events noted. OBJECTIVE: VITAL SIGNS: Blood pressure 152/72, respiration 18, pulse 67, temperature 97.8. I's AND O'S: The patient is 800 in and 5 liters out. HEENT: Head is normocephalic. NECK: Supple. HEART: Regular rate. LUNGS: Show diminished breath sounds at base. ABDOMEN: Soft, nontender to palpation. No rebound or guarding. EXTREMITIES: Negative for clubbing, cyanosis. Positive edema. DERMATOLOGIC: No rashes. MUSCULOSKELETAL: No joint effusions. NEUROLOGIC: No change in exam. MEDICATIONS: The patient's medications have been reviewed. LABORATORY DATA: Currently pending. ASSESSMENT AND PLAN: 1. Nonoliguric acute kidney injury on top of chronic kidney disease with previous baseline creatini ne around 1.5 to 2 mg/dL. The etiology of acute kidney injury is secondary to urinary retention, he modynamics. The patient has had excellent urinary output after Flynn catheter placement. A CT scan showed no evidence of hydronephrosis. Plan at this point is to continue current medical management . We will place a urology consultation with Dr. Briceno for evaluation. We will follow up renal pa robert, monitor closely. 2. Urinary retention. Etiology is unclear. We will place a urology consult as stated above and lauren johnson. 3. Right ovarian cystic mass, unclear etiology, possible malignancy. Follow up with Dr. Suarez. 4. Acute decompensated diastolic heart failure. The patient has noted pulmonary congestion and low er extremity edema. Continue current diuretic regimen. 5. History of coronary artery disease, status post coronary artery bypass graft. Continue medical management. 6. Diabetes. Continue current insulin regimen. 7. Anemia. Continue to monitor hemoglobin and hematocrit levels. 8. Hypertension. Blood pressure remains elevated. Medications were adjusted. Continue to monitor . 9. Chronic kidney disease stage IIIB/IV. Etiology is multifactorial secondary to diabetes, hyperte nsion. The patient is currently in acute kidney injury as stated above. Continue current treatment plan. 10. Morbid obesity. Continue dietary modification. 11. Dyslipidemia. Continue statin therapy. 12. History of obstructive sleep apnea. Continue supplemental oxygen. 13. History of peripheral vascular disease. Continue current medical management. 14. Debility. We will place a PT, OT consult for evaluation. 15. Neuropathy. Continue Lyrica. 16. Gastrointestinal and deep venous thrombosis prophylaxis. Continue proton pump inhibitor and se quential leg squeezers, low dose Lovenox. Dictated By: CRISTA GAINES/BIRGIT Conf#: [id number] DID#: [id number]
--- NOTE | 2016-06-10 11:29 | CONS ---
Date/Time of Note Date/Time of Note DATE: 06/10/16 TIME: 11:28 Assessment/Plan Assessment/Plan Chief Complaint/Hosp Course 1. A right ovarian cystic mass. Etiology is unclear, concerning for possible malignancy. ca 125-P REVIEW RADIOLOGY 2. Anemia. Continue to monitor hemoglobin and hematocrit levels. PROCEED WITH ANEMIA W-UP OBSERVE FOR BLEEDING AND HEMOLYSIS 3. Nonoliguric acute kidney injury on top of chronic kidney disease with a previous baseline renal function around 1.5 to 2 mg/dL. Etiology of acute kidney injury is possibly secondary to urinary retention, obstructive uropathy versus hemodynamics, possible cardiorenal syndrome. The patient's urinalysis shows findings of proteinuria but no pyuria, no hematuria, and a CT scan of the abdomen and pelvis showed no evidence of hydronephrosis. Plan at this point is to check a renal ultrasound. Will repeat UA with microanalysis. Will check urine electrolytes. Will continue supportive care, renally dose medications, avoid nephrotoxins, monitor renal function closely. 4 Urinary retention. Underlying etiology is unclear. The patient is status post Husain catheter placement with good urinary output. Will place a urology consult for evaluation. 5. Acute decompensated diastolic heart failure. The patient noted to have pulmonary congestion, lower extremity edema. The patient is status post Lasix; will continue. Will place cardiology consult for evaluation. 6. History of coronary artery disease, status post coronary artery bypass graft. Continue current medical management. 7. Diabetes. Will continue Accu-Cheks, insulin sliding scale, continue Lantus. 8. Chronic kidney disease stage IIIB/IV. Etiology is multifactorial secondary to diabetes, hypertension. The patient is currently in acute kidney injury as stated above. Continue medical management. 9. Morbid obesity. Continue dietary modification. 10. Dyslipidemia. Continue statin therapy. 11. Obstructive sleep apnea. Continue supplemental oxygen. Consider a pulmonary consult for evaluation. 12. Hypertension- POORLY CONTROLLED Continue current blood pressure regimen. Will adjust medications as needed. CARDIOLOGY EVAL 13. History of peripheral vascular disease. Continue current medical management. 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 SEVERE DJD/OA WITH CHRONIC PAIN 16. GI PROBLEMS- WITH ABD PAIN, DIARRHEA/ ALTERNATING WITH CONSTIPATION GI EVAL Problems: Consultation Date/Type/Reason Admit Date/Time Jun 09, 2016 at 12:22 Initial Consult Date 06/09/16 Type of Consultation: [facility] Referring Provider: CRISTA HERNANDEZ DO 24 HR Interval Summary Free Text/Dictation ALL NOTED HUSAIN IN UROLOGY- CALLED BLOOD COUNT REVIEWED NO BLEEDING + ABD PAIN BP- VERY HIGH ON ADMISSION Exam/Review of Systems Vital Signs Vitals Vital Signs Date Time Temp Pulse Resp B/P Pulse Ox O2 Delivery O2 Flow Rate FiO2 06/10/16 07:20 97.8 67 18 152/72 93 06/09/16 22:25 Room Air 06/09/16 17:00 2.0 Intake and Output 06/09/16 06/09/16 06/10/16 15:00 23:00 07:00 Intake Total 800 ml Output Total 900 ml 2000 ml 2150 ml Balance -900 ml -2000 ml -1350 ml Exam I's AND O'S: The patient is 800 in and 5 liters out. HEENT: Head is normocephalic. NECK: Supple. HEART: Regular rate. LUNGS: Show diminished breath sounds at base. ABDOMEN: Soft, nontender to palpation. No rebound or guarding. EXTREMITIES: Negative for clubbing, cyanosis. Positive edema. DERMATOLOGIC: No rashes. MUSCULOSKELETAL: No joint effusions. NEUROLOGIC: No change in exam. Results Result Diagram: 06/09/16 1015 06/09/16 1015 Results 24 hrs Laboratory Tests Test 06/09/16 15:25 06/09/16 20:42 06/10/16 07:59 06/10/16 10:05 Bedside Glucose 161 128 175 Anion Gap 17 H Basophils # 0.0 Basophils % 0.4 Blood Morphology Comment Blood Urea Nitrogen 29 H Calcium Level 8.3 L Carbon Dioxide Level 25 Chloride Level 103 Creatinine 1.71 H Eosinophils # 0.1 Eosinophils % 1.3 Glucose Level 244 H Hematocrit 35.6 L Hemoglobin 11.7 L Lymphocytes # 1.5 Lymphocytes % 24.2 Magnesium Level 1.9 Mean Corpuscular Hemoglobin 31.9 Mean Corpuscular Hemoglobin Concent 33.0 Mean Corpuscular Volume 96.7 Mean Platelet Volume 9.0 Monocytes # 0.6 Monocytes % 8.7 Neutrophils # 4.2 Neutrophils % 65.4 Nucleated Red Blood Cells # 0.0 Nucleated Red Blood Cells % 0.0 Phosphorus Level 4.2 Platelet Count 191 Potassium Level 4.6 Red Blood Count 3.68 L Red Cell Distribution Width 16.1 H Sodium Level 140 White Blood Count 6.4 Medications Medications Current Medications Aspirin (Halfprin) 81 mg DAILY PO Last administered on 06/10/16 08:22; Admin Dose 81 MG; Start 06/10/16 at 09:00 Gabapentin (Neurontin) 600 mg TID PO Last administered on 06/10/16 08:24; Admin Dose 600 MG; Start 06/09/16 at 21:00 Insulin Glargine (Lantus) 25 unit BID SC Last administered on 06/09/16 22:29; Admin Dose 25 UNIT; Start 06/09/16 at 21:00 Lorazepam (Ativan) 1 mg QHS PRN PO ANXIETY; Start 06/09/16 at 18:00 Miscellaneous Medication (Bystolic) 20 mg DAILY PO Last administered on 08:22; Admin Dose 20 MG; Start 06/10/16 at 09:00 Pregabalin (Lyrica) 150 mg QHS PO Last administered on 06/09/16 20:44; Admin Dose 150 MG; Start 06/09/16 at 21:00 Valacyclovir HCl (Valtrex) 1,000 mg BID PO Last administered on 06/09/16 20:45 ; Admin Dose 1,000 MG; Start 06/09/16 at 21:00 Furosemide (Lasix) 40 mg DAILY PO Last administered on 06/10/16 08:21; Admin Dose 40 MG; Start 06/10/16 at 09:00 Miscellaneous Information 1 ea NOTE XX ; Start 06/09/16 at 18:30 Glucose (Glutose) 15 gm Q15M PRN PO DECREASED GLUCOSE; Start 06/09/16 at 18:30 Glucose (Glutose) 22.5 gm Q15M PRN PO DECREASED GLUCOSE; Start 06/09/16 at 18: 30 Dextrose (D50w Syringe) 25 ml Q15M PRN IV DECREASED GLUCOSE; Start 06/09/16 at 18:30 Dextrose (D50w Syringe) 50 ml Q15M PRN IV DECREASED GLUCOSE; Start 06/09/16 at 18:30 Glucagon (Glucagen) 1 mg Q15M PRN IM DECREASED GLUCOSE; Start 06/09/16 at 18:30 Glucose (Glutose) 15 gm Q15M PRN BUCCAL DECREASED GLUCOSE; Start 06/09/16 at 18 :30 Clonidine (Catapres) 0.1 mg Q6H PRN PO SBP above 160 Last administered on 02:21; Admin Dose 0.1 MG; Start 06/09/16 at 20:30 Amlodipine Besylate (Norvasc) 10 mg DAILY PO ; Start 06/09/16 at 20:30 Hydromorphone HCl (Dilaudid) 0.5 mg Q4H PRN IV PAIN Last administered on 02:10; Admin Dose 0.5 MG; Start 06/10/16 at 02:30 Methyldopa (Aldomet) 500 mg BID PO Last administered on 06/10/16 04:02; Admin Dose 500 MG; Start 06/10/16 at 02:30 Procedures Procedures [place] [id number] Radiology Main Line: [phone] DIAGNOSTIC IMAGING REPORT Patient: MACARIO HERNANDEZ : 1955 Age: 60 Sex: F MR #: [id number] DOS: 06/09/16 1027 Ordering MD: DAYNE SALAS MD Location: E/R Room/Bed: PROCEDURE: CT Abdomen and Pelvis without contrast. CLINICAL INDICATION: Abdominal and pelvic pain. Flank pain. Inability to urinate for 2 days. TECHNIQUE: CT scan of the abdomen and pelvis without contrast was performed. Coronal and sagittal reformatted images were obtained from the axial source images. Images were reviewed on a high-resolution PACS workstation. Total exam DLP is 1356.94 mGy-cm. CTDIvol is 23.50 mGy. One or more of the following dose reduction techniques were used: Automated exposure control, adjustment of the mA and/or kV according to patient size, use of iterative reconstruction technique. COMPARISON: CT scan of the chest dated 12/27/2015. Renal ultrasound dated . FINDINGS: There is mild atelectasis at both lung bases posteriorly. The lung bases are otherwise normal. There is no pleural effusion or pericardial effusion. The heart size is normal. Epicardial pacing electrodes and sternal wires are noted. The liver is normal in size and attenuation. There is no focal hepatic lesion. The gallbladder and bile ducts are normal. The spleen is normal in size. There is no focal splenic lesion. Both adrenals are normal with no enlargement or mass. The pancreas is unremarkable with no mass or evidence of pancreatitis. There is no renal mass or hydronephrosis. There is no renal calculus or ureteral calculus. The abdominal aorta is not dilated. There is calcification in the aorta consistent with atherosclerosis. There is no retroperitoneal lymphadenopathy or mass. There is no pelvic lymphadenopathy. Multiple uterine masses are present consistent with fibroids. Several of the fibroids are calcified. There is a large right adnexal mass measuring 6.7 x 8.8 x 7.4 cm in AP, transverse, and cranial caudal dimensions which may be due to an ovarian mass or a pedunculated fibroid. There is a Husain catheter in the urinary bladder. The periappendiceal region is unremarkable with no evidence of appendicitis. The bowel and mesentery are normal. There is no free fluid or free gas. There are degenerative changes of the spine. There is no fracture or lytic lesion. IMPRESSION: 1. Mild atelectasis at the lung bases posteriorly. 2. Prior cardiac surgery. 3. Atherosclerosis. 4. Calcified fibroids in the uterus. 5. Large right adnexal mass measuring 6.7 x 8.8 x 7.4 cm which may be due to an ovarian mass or pedunculated fibroid. Correlation with pelvic ultrasound or MRI should be considered. 6. Husain catheter in the bladder. 7. Degenerative changes of the spine. RPTAT: QQ .Ethan Villanueva MD, MD Date Time Electronically viewed and signed by .Ethan Villanueva MD, on 06/09/2016 11:56 .R/ CC: DAYNE SALAS MD [place] [id number] Radiology Main Line: [phone] DIAGNOSTIC IMAGING REPORT Patient: MACARIO HERNANDEZ : 1955 Age: 60 Sex: F MR #: [id number] DOS: 06/09/16 1204 Ordering MD: DAYNE SALAS MD Location: E/R Room/Bed: PROCEDURE: US Pelvis CLINICAL INDICATION: right adnexal mass TECHNIQUE: Multiple sonographic images of the pelvis were obtained utilizing a transabdominal and endovaginal technique. The images were reviewed on a PACS workstation. COMPARISON: CT abdomen/pelvis from the same date FINDINGS: The uterus measures 8.3 x 4.1 x 8.6 cm. The endometrial echo complex is not visualized. Multiple dystrophic calcifications are noted in the myometrium measuring up to 4.3 cm which are likely from degenerated fibroids. The right ovary measures 8.3 x 6.9 x 9.0 cm. The left ovary is not visualized. There is normal vascular flow in the right ovary. There is a complex multi septated lesion in the right ovary measuring up to 7.3 cm. Possible vascular flow is noted within the septations which are both thick and thin.. No significant pelvic free fluid is identified. IMPRESSION: Complex cystic lesion in the right ovary with multiple thickened and possibly vascular septations measuring up to 7.3 cm, as above. This lesion correlates with the lesion seen in the right adnexa on the CT study from the same date and is concerning for malignancy. An MRI of the pelvis without and with intravenous contrast is recommended for further evaluation. Multiple dystrophic calcifications in the myometrium measuring up to 4.3 cm are likely from degenerated fibroids. Nonvisualization of the endometrium and left ovary. RPTAT: EE Physician Nancy Date Time Electronically viewed and signed by Anders Nayak Physician on 06/09/2016 14:38 RA/ CC: DAYNE SALAS MD [place] [address] Radiology Main Line: [phone] DIAGNOSTIC IMAGING REPORT Patient: MACARIO HERNANDEZ : 1955 Age: 60 Sex: F [id number] [id number] DOS: 06/09/16 1027 Ordering MD: DAYNE SALAS MD Location: E/R Room/Bed: PROCEDURE: XR Chest. CLINICAL INDICATION: Chest pain TECHNIQUE: Chest AP portable. COMPARISON: 12/20/2015 FINDINGS: Sternotomy and CABG. The mediastinal structures are unremarkable. There is calcification of the thoracic aorta (consistent with atherosclerosis). There is moderate cardiac enlargement. There is mild pulmonary venous hypertension. No consolidation is identified. The pleural spaces are unremarkable. There are senescent changes of the axial skeleton. IMPRESSION: Moderate cardiac enlargement. Mild pulmonary venous hypertension. RPTAT: HGDB .Durga Mahajan MD, MD Date Time Electronically viewed and signed by .Durga Mahajan MD, MD on 06/09/2016 10:55 .B/ CC: DAYNE SALAS MD [place] [id number] Radiology Main Line: [phone] DIAGNOSTIC IMAGING REPORT Patient: MACARIO HERNANDEZ : 1955 Age: 60 Sex: F MR #: [id number] DOS: 06/09/16 0000 Ordering MD: CRISTA HERNANDEZ DO Location: E/R Room/Bed: PROCEDURE: Renal US. CLINICAL INDICATION: Renal insufficiency TECHNIQUE: Multiple sonographic images of the kidneys were obtained. The images were reviewed on a PACS workstation. COMPARISON: December 25, 2015 FINDINGS: The right kidney measures 8.6 cm. The left kidney measures 10.4 cm. Increased cortical echogenicity is identified in both kidneys. No masses, stones or hydronephrosis are identified. The bladder is filled with a small amount of urine and has an unremarkable appearance. IMPRESSION: Small right kidney. Echogenic kidneys suggesting medical renal disease. RPTAT: AA .Christopher Roman MD, MD Date Time Electronically viewed and signed by .Christopher Roman MD, MD on 06/09/2016 18:20 .P/ CC: CRISTA HERNANDEZ VERA M MD Jun 10, 2016 11:29
--- NOTE | 2016-06-10 14:52 | CONS ---
Date/Time of Note Date/Time of Note DATE: 06/10/16 TIME: 14:42 Assessment/Plan Assessment/Plan Chief Complaint/Hosp Course HTN urgency: BP in the 200s but apparently this is her norm so have to bring it down more gradually. Acute on chronic diastolic heart failure: EF preserved. Close to euvolemic and put out a large amount of urine after martinez was placed Ovarian mass: likely cause of urinary retention. Being evaluated by heme/onc Urinary retention: required martinez Acute on chronic renal failure: improved after obstruction resolved h/o CAD s/p CABG DM PVD s/p renal stent -pt agreeable to amlodipine so will give now -hydralazine IV PRN -continue home nebivolol, methyldopa (unusual BP med combination) -add PO hydralazine as next agent or if renal function ok add ACEI or ARB -decrease to lasix 20mg PO daily Problems: Consultation Date/Type/Reason Admit Date/Time Jun 09, 2016 at 12:22 Date of Consultation: Jun 10, 2016 Type of Consultation: Cardiology Reason for Consultation CHF, HTN Referring Provider: CRISTA HERNANDEZ DO Hx of Present Illness 60 yo F with a h/o CAD s/p CABG, CHF (preserved EF), DM, HTN, CKD, PVD s/p renal artery stent, who presented due to inability to urinate and was found to have urinary retention requiring martinez and a large ovarian mass. She has had uncontrolled BP here up to SBP 200s. She refused her amlodipine this am. Per the pt she stopped taking amlodipine in the past due to leg edema. She only takes nebivolol and methyldopa and her SBP is apparently up to the 260 at times. No chest pain but has occasional SOB which is chronic and not worse over the past few days. per HPI Past Medical History per HPI Social History Smoking Status: Former smoker Exam/Review of Systems Vital Signs Vitals Vital Signs Date Time Temp Pulse Resp B/P Pulse Ox O2 Delivery O2 Flow Rate FiO2 06/10/16 07:20 97.8 67 18 152/72 93 06/09/16 22:25 Room Air 06/09/16 17:00 2.0 Intake and Output 06/09/16 06/09/16 06/10/16 15:00 23:00 07:00 Intake Total 800 ml Output Total 900 ml 2000 ml 2150 ml Balance -900 ml -2000 ml -1350 ml Exam Constitutional: alert, oriented Psych: no complaints Head: atraumatic, normocephalic Neck: jvd (7cm) Respiratory: clear to auscultation, diminished breath sounds Cardiovascular: edema (1+), regular rate and rhythm, No systolic murmur Gastrointestinal: non-tender, soft Neurological: nl mental status, nl speech Skin: diaphoresis Results Result Diagram: 06/10/16 1005 06/10/16 1005 Results 24 hrs Laboratory Tests Test 06/09/16 15:25 06/09/16 20:42 06/10/16 07:59 06/10/16 10:05 Bedside Glucose 161 128 175 Anion Gap 17 H Basophils # 0.0 Basophils % 0.4 Blood Morphology Comment Blood Urea Nitrogen 29 H Calcium Level 8.3 L Carbon Dioxide Level 25 Chloride Level 103 Creatinine 1.71 H Eosinophils # 0.1 Eosinophils % 1.3 Glucose Level 244 H Hematocrit 35.6 L Hemoglobin 11.7 L Lymphocytes # 1.5 Lymphocytes % 24.2 Magnesium Level 1.9 Mean Corpuscular Hemoglobin 31.9 Mean Corpuscular Hemoglobin Concent 33.0 Mean Corpuscular Volume 96.7 Mean Platelet Volume 9.0 Monocytes # 0.6 Monocytes % 8.7 Neutrophils # 4.2 Neutrophils % 65.4 Nucleated Red Blood Cells # 0.0 Nucleated Red Blood Cells % 0.0 Phosphorus Level 4.2 Platelet Count 191 Potassium Level 4.6 Red Blood Count 3.68 L Red Cell Distribution Width 16.1 H Sodium Level 140 White Blood Count 6.4 Test 06/10/16 12:01 Bedside Glucose 202 Medications Medications Current Medications Aspirin (Halfprin) 81 mg DAILY PO Last administered on 06/10/16 08:22; Admin Dose 81 MG; Start 06/10/16 at 09:00 Gabapentin (Neurontin) 600 mg TID PO Last administered on 06/10/16 08:24; Admin Dose 600 MG; Start 06/09/16 at 21:00 Insulin Glargine (Lantus) 25 unit BID SC Last administered on 06/10/16 09:59; Admin Dose 25 UNIT; Start 06/09/16 at 21:00 Lorazepam (Ativan) 1 mg QHS PRN PO ANXIETY; Start 06/09/16 at 18:00 Miscellaneous Medication (Bystolic) 20 mg DAILY PO Last administered on 08:22; Admin Dose 20 MG; Start 06/10/16 at 09:00 Pregabalin (Lyrica) 150 mg QHS PO Last administered on 06/09/16 20:44; Admin Dose 150 MG; Start 06/09/16 at 21:00 Valacyclovir HCl (Valtrex) 1,000 mg BID PO Last administered on 06/09/16 20:45 ; Admin Dose 1,000 MG; Start 06/09/16 at 21:00 Furosemide (Lasix) 40 mg DAILY PO Last administered on 06/10/16 08:21; Admin Dose 40 MG; Start 06/10/16 at 09:00 Miscellaneous Information 1 ea NOTE XX ; Start 06/09/16 at 18:30 Glucose (Glutose) 15 gm Q15M PRN PO DECREASED GLUCOSE; Start 06/09/16 at 18:30 Glucose (Glutose) 22.5 gm Q15M PRN PO DECREASED GLUCOSE; Start 06/09/16 at 18: 30 Dextrose (D50w Syringe) 25 ml Q15M PRN IV DECREASED GLUCOSE; Start 06/09/16 at 18:30 Dextrose (D50w Syringe) 50 ml Q15M PRN IV DECREASED GLUCOSE; Start 06/09/16 at 18:30 Glucagon (Glucagen) 1 mg Q15M PRN IM DECREASED GLUCOSE; Start 06/09/16 at 18:30 Glucose (Glutose) 15 gm Q15M PRN BUCCAL DECREASED GLUCOSE; Start 06/09/16 at 18 :30 Amlodipine Besylate (Norvasc) 10 mg DAILY PO ; Start 06/09/16 at 20:30 Hydromorphone HCl (Dilaudid) 0.5 mg Q4H PRN IV PAIN Last administered on 02:10; Admin Dose 0.5 MG; Start 06/10/16 at 02:30 Methyldopa (Aldomet) 500 mg BID PO Last administered on 06/10/16 11:42; Admin Dose 500 MG; Start 06/10/16 at 02:30 Pantoprazole (Protonix Tab) 40 mg DAILY@06 PO ; Start 06/11/16 at 06:00 Enoxaparin Sodium (Lovenox) 30 mg DAILY SC ; Start 06/11/16 at 09:00 Clonidine (Catapres) 0.2 mg Q6H PRN PO SBP above 160 Last administered on t 12:22; Admin Dose 0.2 MG; Start 06/10/16 at 12:17 AMISHA NIETO Jun 10, 2016 14:52
[2016-06-10] MEDS: hydrALAzine 20 MG INJ IV PRN (15:03)
[2016-06-10] MEDS: PREGABALIN 75 MG CAP PO SCH (21:02)
[2016-06-11] VITALS (13 sets, daily range): BP systolic 127–179; BP diastolic 63–80; PULSE 56–64; RESP 17–20
[2016-06-11] MEDS: PANTOPRAZOLE (EC) 40 MG TAB PO SCH (05:41)
--- NOTE | 2016-06-11 07:14 | CONS ---
DATE OF ADMISSION: 06/09/2016 DATE OF CONSULTATION: 06/10/2016 Jessica Suarez MD Dear Dr. Suarez, Thank you for asking me to see Mrs. Ramos in GI consultation. The patient, as you know, is a 66- year-old [place] female, is admitted to the hospital because she has abdominal pain and she has diff iculty in having urination. She is seen by [employer]. She has history of coronary artery disease status post coronary artery bypass surgery, history of di abetes, history of chronic kidney disease stage IV with baseline creatinine of 2. She has history o f renal stenosis post-stent placement, history of hypertension, obesity, and dyslipidemia. From the GI standpoint, she has a chronic abdominal pain with alternating constipation and diarrhea, more co nstipation than diarrhea. IMAGING: She has a CAT scan of the abdomen which showed evidence of a 7 cm ovarian mass, calcified fibroid uterus. REVIEW OF SYSTEM: Coronary artery disease, diabetes, neuropathy. From the GI standpoint, no histor y of vomiting blood or passing blood from the rectum. She does have bloody stools from time to time . MEDICATIONS PRIOR TO THE ADMISSION: Includes: 1. Valacyclovir. 2. Clonidine. 3. Nadolol 4. Crestor. 5. Aspirin. 6. Gabapentin. 7. Lorazepam. 8. Lyrica. 9. Nexium. 10. Invokana. 11. Lantus. 12. Humalog. SOCIAL HISTORY: The patient does not smoke or do any drugs. PHYSICAL EXAMINATION: The patient is a 60-year-old [place] female who at this time is alert, actual ly she is mildly obese. She is afebrile. CARDIOVASCULAR: Normal heart sounds. RESPIRATORY: Normal breath sounds. ABDOMEN: Showed obese abdomen. LABORATORY DATA: WBC count 6400, hemoglobin 11.3, platelet count 191,000, potassium 4.6, BUN is 29, creatinine is 1.71. ALT 27, AST is 15, alkaline phosphatase 73. IMAGING STUDIES: CAT scan of the abdomen shows evidence of mild atelectasis in the lungs, prior cardiac surgery, calc ified fibroid. She has evidence of colitis. Right adnexal mass is also noted. IMPRESSION: From the GI standpoint, she has evidence of constipation and rectal bleeding. CAT scan of the abdomen showed evidence of thickening of the ascending colon. 1. Rule out colorectal neoplasm. 2. History of constipation. 3. Mild anemia. 4. History of coronary artery disease. 5. History of diabetes. 6. Hypertension. 7. Chronic kidney disease. PLAN: At this time, recommend colonoscopy as requested. However, we will need a cardiac clearance. Once again, doctor, thank you for this consultation. Sincerely, Dictated By: JOSE ELIAS HANKS/BIRGIT Conf#: [id number] DID#: [id number]
[2016-06-11 07:37] LABS: BASOPHILS % 0.4 % (0.0-2.0); EOSINOPHILS # 0.1 10^3/ul (0.0-0.5); EOSINOPHILS % 1.8 % (0.0-7.0); HEMATOCRIT 37.1 % (37.0-47.0); HEMOGLOBIN 12.3 g/dl (12.0-16.0); LYMPHOCYTES % 30.2 % (15.0-51.0); MEAN CORPUSCULAR HEMOGLOBIN 32.2 pg (29.0-33.0); MEAN CORPUSCULAR HGB CONC 33.3 g/dl (32.0-37.0); MEAN CORPUSCULAR VOLUME 96.8 fl (82.0-101.0); MEAN PLATELET VOLUME 8.9 fl (7.4-10.4); MONOCYTE # 0.7 10^3/ul (0.3-0.9); MONOCYTES % 10.4 % (0.0-11.0); NEUTROPHIL # 3.8 10^3/ul (1.6-7.5); NEUTROPHILS % 57.2 % (39.0-77.0); PLATELET COUNT 196 10^3/UL (140-440); RED BLOOD COUNT 3.83 10^6/ul (4.20-5.40); RED CELL DISTRIBUTION WIDTH 16.3 % (11.5-14.5); UNCORRECTED WBC 6.7 10^3/ul (4.8-10.8); WHITE BLOOD COUNT 6.7 10^3/ul (4.8-10.8)
[2016-06-11] MEDS: INSULIN ASPART [NOVOLOG] 3 ML PEN SC SCH ×4 (07:39→20:32)
[2016-06-11 07:40] LABS: CONDITION 1; LH ANALYZER COMMENTS 1
[2016-06-11 07:55] LABS: POTASSIUM 4.6 mmol/L (3.5-5.1)
[2016-06-11 07:57] LABS: CREATININE 1.96 mg/dl (0.44-1.00)
[2016-06-11 07:58] LABS: CALCIUM 8.4 mg/dl (8.4-10.2); PHOSPHORUS 4.7 mg/dl (2.5-4.9)
--- NOTE | 2016-06-11 08:41 | CONS ---
DATE OF ADMISSION: 06/09/2016 DATE OF CONSULTATION: 06/11/2016 REQUESTING PHYSICIAN: Dr. Munson. REASON FOR CONSULTATION: Urinary retention. Dear Dr. Munson: Thank you for asking me to see this patient in urological consultation. HISTORY OF PRESENT ILLNESS: This is a 60-year-old [place] female who has multiple medical problems and presented to [facility] with the inability to urinate. She had a CT scan of t abdomen and pelvis and that showed a right ovarian mass, complex, cystic, and measuring 7.3 cm, c oncerning for possible malignancy. The patient upon admission had a Flynn catheter put in and over 900 mL of urine drained out. The patient states that at home she was able to urinate and she goes t o the bathroom. She is able to ambulate, but she holds onto furniture to be able to reach the bathr oom. Here, she has been unable to walk much and she is in bed most of the time. She denies any bu rning or stinging on urination. There is no history of gross hematuria. She denies any prior histo ry of difficulty urinating. PAST MEDICAL HISTORY: Significant for: 1. A history of coronary artery disease. She is status post coronary artery bypass graft. 2. A history of diabetes for many years and has been on insulin and other medications for it. 3. A history of chronic kidney disease stage IV, with a baseline creatinine around 2 mg/dL. 4. A history of renal artery stenosis, status post stent placement. 5. Hypertension. 6. Morbid obesity. 7. Dyslipidemia. 8. Nystagmus. 9. Neuropathy. 10. The patient is 2, para 1, 1. One normal delivery by vacuum. PAST SURGICAL HISTORY: Includes: 1. Coronary artery bypass graft. 2. Renal artery stent placement. SOCIAL HISTORY: She does not drink. She used to be a smoker, at least 1 pack a day, but she quit a fter she had a heart attack. REVIEW OF SYSTEMS: Otherwise negative, except what is mentioned in the present history. MEDICATIONS: Presently include: 1. Lovenox. 2. Lasix. 3. Protonix. 4. Apresoline. 5. Clonidine. 6. Aspirin. 7. Dilaudid. 8. Aldomet. 9. Gabapentin. 10. Pregabalin 11. Lyrica. 12. Valtrex. 13. Insulin. 14. Amlodipine. 15. Ativan. ALLERGIES: SULFA. PHYSICAL EXAMINATION: GENERAL: Reveals a 60-year-old female. She weighs 100.2 kilograms. She is 61 inches tall. VITAL SIGNS: Temperature is 98.0, pulse is 62, respirations 18, blood pressure 127/63. ABDOMEN: Very obese, folding over the pubic area. There is no abdominal mass that could be palpa vladimir. PELVIC EXAM: Revealed atrophic vaginitis, but there is no discharge and no mass. The Flynn cathete r that she has is draining clear urine. LABORATORY DATA: Her CBC shows a white count of 6.4, hemoglobin 11.7, hematocrit 35.6. BUN is 29, creatinine 1.71. Sodium 140, potassium 4.6, chloride 103, CO2 25. Urine culture, no growth in 24 hours. The pelvic ultrasound showed a complex cystic lesion in the right ovary, was multiple thicke linh and possibly vascular septations, measuring up to 7.3 cm. This is concerning for malignancy. M RI of the pelvis without and with intravenous contrast was recommended. Multiple dystrophic calcifi cations in the myometrium, likely from a degenerative fibroid. The CT scan of the abdomen and pelvi s showed mild atelectasis at the lung bases, prior cardiac surgery, atherosclerosis, calcified fibro id uterus, large right adnexal mass measuring 6.7 x 8.8 x 7.4, which may be due to an ovarian mass o r a pedunculated fibroid. Correlation with pelvic ultrasound or MRI should be considered. Flynn ca theter in bladder. of the spine. IMPRESSION: Urinary retention. This could be secondary to her diabetes and aggravating factors such as pain medication, muscle relaxant or sleeping pills, and also the fact that she is not moving ella und. RECOMMENDATION: We shall take out the Flynn catheter and see if she voids. Check her postvoid resi dual. We will also do a straight catheterization on her as needed for a postvoid residual of over 3 00 mL, and if she does not void or a bladder scan of over 500 mL, I will try her on low dose urechol ine first and see if that will help also. I will follow her urological problem with you. Thank you for allowing me to help in her care. Dictated By: GUANACO CURRAN/BIRGIT Conf#: [id number] DID#: [id number]
[2016-06-11] MEDS: FUROSEMIDE 20 MG TAB PO SCH (09:20)
[2016-06-11] MEDS: VALACYCLOVIR 500 MG TAB PO SCH ×2 (09:20→20:18)
[2016-06-11] MEDS: METHYLDOPA 500 MG TAB PO SCH ×2 (09:21→21:49)
[2016-06-11] MEDS: BETHANECHOL 10 MG TAB PO SCH ×3 (09:22→20:18)
[2016-06-11] MEDS: ASPIRIN (EC) 81 MG TAB PO SCH (09:22)
[2016-06-11] MEDS: NEBIVOLOL 5 MG TAB PO SCH (09:22)
[2016-06-11] MEDS: GABAPENTIN 300 MG CAP PO SCH ×3 (09:22→20:18)
[2016-06-11] MEDS: ENOXAPARIN 30 MG/0.3 ML SYG SC SCH (09:25)
[2016-06-11] MEDS: INSULIN GLARGINE [LANtus] 3 ML PEN SC SCH ×2 (09:31→22:01)
--- NOTE | 2016-06-11 09:50 | PN ---
DATE: 06/11/2016 SUBJECTIVE: Stable. No acute events overnight. No fevers, chills, nausea, vomiting. The patient was seen by urologist, Dr. Briceno. Flynn catheter was recently removed. No other acute events not ed. OBJECTIVE: VITAL SIGNS: Blood pressure is 127/63, respirations 18, pulse 62, temperature 98.0. HEENT: Head is normocephalic. NECK: Supple. HEART: Regular rate. LUNGS: Show diminished breath sounds at the base. ABDOMEN: Soft, nontender to palpation. No rebound or guarding. EXTREMITIES: Negative for clubbing, cyanosis. Trace edema. DERMATOLOGIC: No rashes. MUSCULOSKELETAL: No joint effusions. NEUROLOGIC: No change in exam. MEDICATIONS: The patient's medications have been reviewed. LABORATORY DATA: Showed sodium 141, potassium 4.6, chloride 102, BUN 32, creatinine 1.96. White co unt 6.7, hemoglobin 10.3, hematocrit 37.1, platelet count is 196. ASSESSMENT AND PLAN: 1. Nonoliguric acute kidney injury on top of chronic kidney disease with previous baseline creatini ne of 1.5 to 2 mg/dL. Etiology of acute kidney injury was multifactorial secondary to hemodynamics, urinary retention. The patient's renal function appears to be stabilizing in the last 24 to 48 lilibeth rs. At this point, continue current treatment plan. The patient's Lasix was deescalated by cardiol ogcharly. Will continue to monitor renal function closely. If renal function remains stable, may consid er reintroduction of PATIENCE inhibitor. 2. Urinary retention. Etiology is possibly due to neurogenic bladder. The patient was seen by uro logist, Dr. Briceno. Flynn catheter removed. Continue to monitor closely. 3. Right ovarian cystic mass, etiology is unclear. Questionable malignancy. We will follow up [facility] oncologist, Dr. Suarez. 4. Acute decompensated diastolic heart failure. The patient is clinically improving. Continue cur rent medical management. Continue diuretic therapy. Follow up with cardiology. 5. History of coronary artery disease, status post coronary artery bypass graft. Continue current treatment plan. 6. Diabetes. Continue current insulin regimen. 7. Anemia. Continue to monitor hemoglobin and hematocrit levels. 8. Hypertension. Blood pressures are improving. Continue current blood pressure regimen. 9. Chronic kidney disease, stage IIIB/IV. Etiology is multifactorial, secondary to diabetes, hyper tension. The patient is currently in acute kidney injury as stated above. Continue to monitor. 10. Morbid obesity. Continue dietary modification. 11. Dyslipidemia, continue statin therapy. 12. History of obstructive sleep apnea. Continue supplemental oxygen. 13. History of peripheral vascular disease. Continue current medical management. 14. Neuropathy. Continue Lyrica. 15. Debility. Continue PT, OT. 16. Gastrointestinal and deep venous thrombosis prophylaxis. Continue PPIs, sequential leg squeeze rs, and Lovenox. Dictated By: CRISTA GAINES/BIRGIT Conf#: [id number] DID#: [id number]
--- NOTE | 2016-06-11 11:53 | CONS ---
Date/Time of Note Date/Time of Note DATE: 06/11/16 TIME: 11:51 Assessment/Plan Assessment/Plan Chief Complaint/Hosp Course HTN urgency: BP slightly better but not controlled Acute on chronic diastolic heart failure: EF preserved.~euvolemic Ovarian mass: likely cause of urinary retention. Being evaluated by heme/onc Urinary retention: required martinez Acute on chronic renal failure: improved after obstruction resolved h/o CAD s/p CABG DM PVD s/p renal stent -did not receive amlodipine today, will give dose -hydralazine IV PRN -continue home nebivolol, methyldopa -add PO hydralazine as next agent or if renal function ok add ACEI or ARB -lasix 20mg PO daily Problems: Consultation Date/Type/Reason Admit Date/Time Jun 09, 2016 at 12:22 Initial Consult Date 06/10/16 Type of Consultation: Cardiology Referring Provider: CRISTA HERNANDEZ DO 24 HR Interval Summary Free Text/Dictation No o/n events. BP intermittently improved but still high overall. Exam/Review of Systems Vital Signs Vitals Vital Signs Date Time Temp Pulse Resp B/P Pulse Ox O2 Delivery O2 Flow Rate FiO2 06/11/16 11:49 97.9 55 17 171/80 93 06/11/16 08:30 Nasal Cannula 2.0 Intake and Output 06/10/16 06/10/16 06/11/16 15:00 23:00 07:00 Intake Total 500 ml Output Total 1200 ml Balance -700 ml Exam Constitutional: alert, oriented Head: atraumatic, normocephalic Neck: No jvd Respiratory: diminished breath sounds Cardiovascular: edema (trace), regular rate and rhythm, No systolic murmur Neurological: nl mental status, nl speech Results Result Diagram: 06/11/16 0635 06/11/16 0635 Results 24 hrs Laboratory Tests Test 06/10/16 12:01 06/10/16 17:32 06/10/16 21:07 06/11/16 06:35 Bedside Glucose 202 235 H 235 H Anion Gap 15 Basophils # 0.0 Basophils % 0.4 Blood Morphology Comment Blood Urea Nitrogen 32 H Calcium Level 8.4 Carbon Dioxide Level 29 Chloride Level 102 Creatinine 1.96 H Eosinophils # 0.1 Eosinophils % 1.8 Glucose Level 170 Hematocrit 37.1 Hemoglobin 12.3 Lymphocytes # 2.0 Lymphocytes % 30.2 Magnesium Level 2.0 Mean Corpuscular Hemoglobin 32.2 Mean Corpuscular Hemoglobin Concent 33.3 Mean Corpuscular Volume 96.8 Mean Platelet Volume 8.9 Monocytes # 0.7 Monocytes % 10.4 Neutrophils # 3.8 Neutrophils % 57.2 Nucleated Red Blood Cells # 0.0 Nucleated Red Blood Cells % 0.0 Phosphorus Level 4.7 Platelet Count 196 Potassium Level 4.6 Red Blood Count 3.83 L Red Cell Distribution Width 16.3 H Sodium Level 141 White Blood Count 6.7 Test 06/11/16 07:27 Bedside Glucose 166 Medications Medications Current Medications Aspirin (Halfprin) 81 mg DAILY PO Last administered on 06/11/16 09:22; Admin Dose 81 MG; Start 06/10/16 at 09:00 Gabapentin (Neurontin) 600 mg TID PO Last administered on 06/11/16 09:22; Admin Dose 600 MG; Start 06/09/16 at 21:00 Insulin Glargine (Lantus) 25 unit BID SC Last administered on 06/11/16 09:31; Admin Dose 25 UNIT; Start 06/09/16 at 21:00 Lorazepam (Ativan) 1 mg QHS PRN PO ANXIETY; Start 06/09/16 at 18:00 Miscellaneous Medication (Bystolic) 20 mg DAILY PO Last administered on 09:22; Admin Dose 20 MG; Start 06/10/16 at 09:00 Pregabalin (Lyrica) 150 mg QHS PO Last administered on 06/10/16 21:02; Admin Dose 150 MG; Start 06/09/16 at 21:00 Valacyclovir HCl (Valtrex) 1,000 mg BID PO Last administered on 06/11/16 09:20 ; Admin Dose 1,000 MG; Start 06/09/16 at 21:00 Miscellaneous Information 1 ea NOTE XX ; Start 06/09/16 at 18:30 Glucose (Glutose) 15 gm Q15M PRN PO DECREASED GLUCOSE; Start 06/09/16 at 18:30 Glucose (Glutose) 22.5 gm Q15M PRN PO DECREASED GLUCOSE; Start 06/09/16 at 18: 30 Dextrose (D50w Syringe) 25 ml Q15M PRN IV DECREASED GLUCOSE; Start 06/09/16 at 18:30 Dextrose (D50w Syringe) 50 ml Q15M PRN IV DECREASED GLUCOSE; Start 06/09/16 at 18:30 Glucagon (Glucagen) 1 mg Q15M PRN IM DECREASED GLUCOSE; Start 06/09/16 at 18:30 Glucose (Glutose) 15 gm Q15M PRN BUCCAL DECREASED GLUCOSE; Start 06/09/16 at 18 :30 Amlodipine Besylate (Norvasc) 10 mg DAILY PO Last administered on 06/10/16 15: 02; Admin Dose 10 MG; Start 06/09/16 at 20:30 Hydromorphone HCl (Dilaudid) 0.5 mg Q4H PRN IV PAIN Last administered on 23:36; Admin Dose 0.5 MG; Start 06/10/16 at 02:30 Methyldopa (Aldomet) 500 mg BID PO Last administered on 06/11/16 09:21; Admin Dose 500 MG; Start 06/10/16 at 02:30 Pantoprazole (Protonix Tab) 40 mg DAILY@06 PO Last administered on 06/11/16 05 :41; Admin Dose 40 MG; Start 06/11/16 at 06:00 Enoxaparin Sodium (Lovenox) 30 mg DAILY SC Last administered on 06/11/16 09:25 ; Admin Dose 30 MG; Start 06/11/16 at 09:00 Clonidine (Catapres) 0.2 mg Q6H PRN PO SBP above 160 Last administered on 12:22; Admin Dose 0.2 MG; Start 06/10/16 at 12:17 Hydralazine HCl (Apresoline) 10 mg Q4H PRN IV SBP >170 Last administered on 15:03; Admin Dose 10 MG; Start 06/10/16 at 15:00 Furosemide (Lasix) 20 mg DAILY PO Last administered on 06/11/16 09:20; Admin Dose 20 MG; Start 06/11/16 at 09:00 Bethanechol Chloride (Urecholine) 10 mg TID PO Last administered on 06/11/16 09:22; Admin Dose 10 MG; Start 06/11/16 at 09:00 AMISHA NIETO Jun 11, 2016 11:53
[2016-06-11 16:21] LABS: MICROALBUMIN 105.8 mg/dL
--- NOTE | 2016-06-11 17:57 | CONS ---
Date/Time of Note Date/Time of Note DATE: 06/11/16 TIME: 17:56 Assessment/Plan Assessment/Plan Chief Complaint/Hosp Course 1. A right ovarian cystic mass. Etiology is unclear, concerning for possible malignancy. ca 125-P REVIEW RADIOLOGY MRI PELVIS 2. Anemia. Continue to monitor hemoglobin and hematocrit levels. PROCEED WITH ANEMIA W-UP OBSERVE FOR BLEEDING AND HEMOLYSIS 3. Nonoliguric acute kidney injury on top of chronic kidney disease with a previous baseline renal function around 1.5 to 2 mg/dL. Etiology of acute kidney injury is possibly secondary to urinary retention, obstructive uropathy versus hemodynamics, possible cardiorenal syndrome. The patient's urinalysis shows findings of proteinuria but no pyuria, no hematuria, and a CT scan of the abdomen and pelvis showed no evidence of hydronephrosis. Plan at this point is to check a renal ultrasound. Will repeat UA with microanalysis. Will check urine electrolytes. Will continue supportive care, renally dose medications, avoid nephrotoxins, monitor renal function closely. Clinical albuminuria - PER NEPHROLOGY 4 Urinary retention. Underlying etiology is unclear. The patient is status post Flynn catheter placement with good urinary output. Seen by urology still unable to urinate on intermittent catheterizations started on URECHOLINE 5. Acute decompensated diastolic heart failure. The patient noted to have pulmonary congestion, lower extremity edema. The patient is status post Lasix; will continue. cardiology F-UP 6. History of coronary artery disease, status post coronary artery bypass graft. Continue current medical management. 7. Diabetes. Will continue Accu-Cheks, insulin sliding scale, continue Lantus. CHECK HB A1C 8. Chronic kidney disease stage IIIB/IV. Etiology is multifactorial secondary to diabetes, hypertension. The patient is currently in acute kidney injury as stated above. Continue medical management. 9. Morbid obesity. Continue dietary modification. 10. Dyslipidemia. Continue statin therapy. 11. Obstructive sleep apnea. Continue supplemental oxygen. Consider a pulmonary consult for evaluation. 12. Hypertension- POORLY CONTROLLED Continue current blood pressure regimen. Will adjust medications as needed. CARDIOLOGY F-UP 13. History of peripheral vascular disease. Continue current medical management. 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 SEVERE DJD/OA WITH CHRONIC PAIN 16. GI PROBLEMS- WITH ABD PAIN, DIARRHEA/ ALTERNATING WITH CONSTIPATION GI EVAL Problems: Consultation Date/Type/Reason Admit Date/Time Jun 09, 2016 at 12:22 Initial Consult Date 06/09/16 Referring Provider: CRISTA HERNANDEZ DO Exam/Review of Systems Vital Signs Vitals Vital Signs Date Time Temp Pulse Resp B/P Pulse Ox O2 Delivery O2 Flow Rate FiO2 06/11/16 16:06 56 06/11/16 15:46 97.9 17 130/72 95 06/11/16 08:30 Nasal Cannula 2.0 Intake and Output 06/10/16 06/10/16 06/11/16 15:00 23:00 07:00 Intake Total 500 ml Output Total 1200 ml Balance -700 ml Results Result Diagram: 06/11/16 0635 06/11/16 0635 Results 24 hrs Laboratory Tests Test 06/10/16 21:07 06/11/16 06:35 06/11/16 07:27 06/11/16 11:58 Bedside Glucose 235 H 166 236 H Anion Gap 15 Basophils # 0.0 Basophils % 0.4 Blood Morphology Comment Blood Urea Nitrogen 32 H Calcium Level 8.4 Carbon Dioxide Level 29 Chloride Level 102 Creatinine 1.96 H Eosinophils # 0.1 Eosinophils % 1.8 Glucose Level 170 Hematocrit 37.1 Hemoglobin 12.3 Lymphocytes # 2.0 Lymphocytes % 30.2 Magnesium Level 2.0 Mean Corpuscular Hemoglobin 32.2 Mean Corpuscular Hemoglobin Concent 33.3 Mean Corpuscular Volume 96.8 Mean Platelet Volume 8.9 Monocytes # 0.7 Monocytes % 10.4 Neutrophils # 3.8 Neutrophils % 57.2 Nucleated Red Blood Cells # 0.0 Nucleated Red Blood Cells % 0.0 Phosphorus Level 4.7 Platelet Count 196 Potassium Level 4.6 Red Blood Count 3.83 L Red Cell Distribution Width 16.3 H Sodium Level 141 White Blood Count 6.7 Test 06/11/16 17:38 Bedside Glucose 169 Medications Medications Current Medications Aspirin (Halfprin) 81 mg DAILY PO Last administered on 06/11/16 09:22; Admin Dose 81 MG; Start 06/10/16 at 09:00 Gabapentin (Neurontin) 600 mg TID PO Last administered on 06/11/16 12:56; Admin Dose 600 MG; Start 06/09/16 at 21:00 Insulin Glargine (Lantus) 25 unit BID SC Last administered on 06/11/16 09:31; Admin Dose 25 UNIT; Start 06/09/16 at 21:00 Lorazepam (Ativan) 1 mg QHS PRN PO ANXIETY; Start 06/09/16 at 18:00 Miscellaneous Medication (Bystolic) 20 mg DAILY PO Last administered on 09:22; Admin Dose 20 MG; Start 06/10/16 at 09:00 Pregabalin (Lyrica) 150 mg QHS PO Last administered on 06/10/16 21:02; Admin Dose 150 MG; Start 06/09/16 at 21:00 Valacyclovir HCl (Valtrex) 1,000 mg BID PO Last administered on 06/11/16 09:20 ; Admin Dose 1,000 MG; Start 06/09/16 at 21:00 Miscellaneous Information 1 ea NOTE XX ; Start 06/09/16 at 18:30 Glucose (Glutose) 15 gm Q15M PRN PO DECREASED GLUCOSE; Start 06/09/16 at 18:30 Glucose (Glutose) 22.5 gm Q15M PRN PO DECREASED GLUCOSE; Start 06/09/16 at 18: 30 Dextrose (D50w Syringe) 25 ml Q15M PRN IV DECREASED GLUCOSE; Start 06/09/16 at 18:30 Dextrose (D50w Syringe) 50 ml Q15M PRN IV DECREASED GLUCOSE; Start 06/09/16 at 18:30 Glucagon (Glucagen) 1 mg Q15M PRN IM DECREASED GLUCOSE; Start 06/09/16 at 18:30 Glucose (Glutose) 15 gm Q15M PRN BUCCAL DECREASED GLUCOSE; Start 06/09/16 at 18 :30 Amlodipine Besylate (Norvasc) 10 mg DAILY PO Last administered on 06/10/16 15: 02; Admin Dose 10 MG; Start 06/09/16 at 20:30 Hydromorphone HCl (Dilaudid) 0.5 mg Q4H PRN IV PAIN Last administered on 23:36; Admin Dose 0.5 MG; Start 06/10/16 at 02:30 Methyldopa (Aldomet) 500 mg BID PO Last administered on 06/11/16 09:21; Admin Dose 500 MG; Start 06/10/16 at 02:30 Pantoprazole (Protonix Tab) 40 mg DAILY@06 PO Last administered on 06/11/16 05 :41; Admin Dose 40 MG; Start 06/11/16 at 06:00 Enoxaparin Sodium (Lovenox) 30 mg DAILY SC Last administered on 06/11/16 09:25 ; Admin Dose 30 MG; Start 06/11/16 at 09:00 Clonidine (Catapres) 0.2 mg Q6H PRN PO SBP above 160 Last administered on 12:22; Admin Dose 0.2 MG; Start 06/10/16 at 12:17 Hydralazine HCl (Apresoline) 10 mg Q4H PRN IV SBP >170 Last administered on 15:03; Admin Dose 10 MG; Start 06/10/16 at 15:00 Furosemide (Lasix) 20 mg DAILY PO Last administered on 06/11/16 09:20; Admin Dose 20 MG; Start 06/11/16 at 09:00 Bethanechol Chloride (Urecholine) 10 mg TID PO Last administered on 06/11/16 12:55; Admin Dose 10 MG; Start 06/11/16 at 09:00 SHARLA SOUSA MD Jun 11, 2016 17:57
[2016-06-11] MEDS: PREGABALIN 75 MG CAP PO SCH (20:18)
[2016-06-12] VITALS (12 sets, daily range): BP systolic 132–191; BP diastolic 62–87; PULSE 57–69; RESP 18–20
[2016-06-12] MEDS: LORAZEPAM 0.5 MG TAB PO SCH ×2 (00:16→21:29)
[2016-06-12] MEDS: HYDROmorphONE 1 MG/ML SYG IV PRN (00:56)
[2016-06-12] MEDS: PANTOPRAZOLE (EC) 40 MG TAB PO SCH (06:35)
[2016-06-12] MEDS: AMLODIPINE 10 MG TAB PO SCH (08:19)
[2016-06-12] MEDS: GABAPENTIN 300 MG CAP PO SCH ×3 (08:19→21:30)
[2016-06-12] MEDS: VALACYCLOVIR 500 MG TAB PO SCH ×2 (08:20→21:31)
[2016-06-12] MEDS: ASPIRIN (EC) 81 MG TAB PO SCH (08:20)
[2016-06-12] MEDS: BETHANECHOL 10 MG TAB PO SCH ×3 (08:20→21:00)
[2016-06-12] MEDS: METHYLDOPA 500 MG TAB PO SCH ×2 (08:20→21:29)
[2016-06-12] MEDS: FUROSEMIDE 20 MG TAB PO SCH (08:20)
[2016-06-12] MEDS: NEBIVOLOL 5 MG TAB PO SCH (08:21)
[2016-06-12 08:24] LABS: POTASSIUM 4.4 mmol/L (3.5-5.1)
[2016-06-12] MEDS: ENOXAPARIN 30 MG/0.3 ML SYG SC SCH (08:25)
[2016-06-12] MEDS: INSULIN GLARGINE [LANtus] 3 ML PEN SC SCH ×2 (08:25→21:32)
[2016-06-12 08:26] LABS: CREATININE 2.2 mg/dl (0.44-1.00)
[2016-06-12] MEDS: INSULIN ASPART [NOVOLOG] 3 ML PEN SC SCH ×4 (08:26→21:38)
[2016-06-12 08:27] LABS: CALCIUM 8.2 mg/dl (8.4-10.2); MAGNESIUM 2.1 mg/dl (1.7-2.5); PHOSPHORUS 5.2 mg/dl (2.5-4.9)
--- NOTE | 2016-06-12 08:45 | PN ---
DATE: 06/12/2016 SUBJECTIVE: The patient is stable. She is making urine after Flynn catheter was removed yesterday. The patient remains hypertensive with systolic pressures rising as high as 190 to 200, no other ac [place] events noted. No hemoptysis, hematemesis, hematochezia. OBJECTIVE: VITAL SIGNS: Blood pressure is 191/87, respiratory rate 20, pulse 62, temperature 97.7. HEENT: Head is normocephalic. NECK: Supple. HEART: Regular rate. LUNGS: Show diminished breath sounds at the base. ABDOMEN: Soft, nontender to palpation. No rebound or guarding. EXTREMITIES: Negative for clubbing, cyanosis. Positive edema. DERMATOLOGIC: No rashes. MUSCULOSKELETAL: No joint effusions. NEUROLOGIC: No change in exam. LOWER EXTREMITIES: The patient has chronic venous insufficiency and trace edema. MEDICATIONS: The patient's medications have been reviewed. LABORATORY DATA: Currently pending. ASSESSMENT AND PLAN: 1. Nonoliguric acute kidney injury on top of chronic kidney disease with baseline creatinine 1.5 to 2 mg/dL. Etiology of acute kidney injury is multifactorial, secondary to hemodynamics from urinary retention. Renal function appears to be stabilizing. Will start the patient on lisinopril 10 mg d aily as the patient has proteinuria on protein/creatinine ratio. We will monitor renal function viky sely. Continue supportive care. 3. Urinary retention. Etiology may be secondary to neurogenic bladder. The patient's Flynn cathet er was removed. Continue to monitor closely. Follow up with urology. 4. Right ovarian cystic mass, etiology is unclear. Questionable malignancy. The patient is being followed by Dr. Suarez, an MRI is pending. Would defer any contrast given the patient's underlyi ng chronic kidney disease. 5. Acute decompensated diastolic heart failure. The patient is clinically improving. Continue cur rent medical management. Follow up with cardiology. 6. Hypertension. Blood pressure remains elevated. Will start the patient on low-dose PATIENCE inhibito r. If renal function remains stable, we will up titrate. Will otherwise continue other blood press ure medicines. 7. Anemia. Continue to monitor hemoglobin and hematocrit levels. Will give Epogen as needed. 8. Diabetes. Continue current insulin regimen. 9. History of coronary artery disease, status post coronary artery bypass graft. Continue current medical management. 10. Chronic kidney disease stage IV. Etiology is multifactorial secondary to diabetes, hypertensio n. The patient is currently in acute kidney injury as stated above. Will continue disease-factor m odifications. 11. Morbid obesity. Continue dietary modification. 12. Dyslipidemia. Continue statin therapy. 13. History of sleep apnea. Continue to monitor. 14. Peripheral vascular disease. Continue current treatment plan. 15. Neuropathy. Continue Lyrica. 16. Debility. Continue PT, OT. 17. Gastrointestinal and deep venous thrombosis prophylaxis. Continue proton pump inhibitor, seque ntial leg squeezers, Lovenox. Dictated By: CRISTA GAINES/BIRGIT Conf#: [id number] DID#: [id number]
--- NOTE | 2016-06-12 10:49 | CONS ---
Date/Time of Note Date/Time of Note DATE: 06/12/16 TIME: 10:47 Assessment/Plan Assessment/Plan Chief Complaint/Hosp Course HTN urgency: BP slightly better but not controlled yet Acute on chronic diastolic heart failure: EF preserved.~euvolemic Ovarian mass: likely cause of urinary retention. Being evaluated by heme/onc Urinary retention: required martinez Acute on chronic renal failure: improved after obstruction resolved. Now worse again but had obstruction again yesterday requiring in/out cath h/o CAD s/p CABG DM PVD s/p renal stent -did not receive amlodipine yesterday, given today -hydralazine IV PRN -continue home nebivolol, methyldopa -was started on lisinopril today (monitor in setting of worse Cr) -lasix 20mg PO daily Problems: Consultation Date/Type/Reason Admit Date/Time Jun 09, 2016 at 12:22 Initial Consult Date 06/10/16 Type of Consultation: Cardiology Referring Provider: CRISTA HERNANDEZ DO 24 HR Interval Summary Free Text/Dictation No o/n events. BP still high but improving Exam/Review of Systems Vital Signs Vitals Vital Signs Date Time Temp Pulse Resp B/P Pulse Ox O2 Delivery O2 Flow Rate FiO2 06/12/16 09:26 59 06/12/16 07:14 97.7 20 191/87 95 06/12/16 01:46 Nasal Cannula 2.0 Intake and Output 06/11/16 06/11/16 06/12/16 15:00 23:00 07:00 Intake Total 940 ml 600 ml 300 ml Output Total 1850 ml 1165 ml 378 ml Balance -910 ml -565 ml -78 ml Exam Constitutional: alert, oriented Psych: no complaints Head: normocephalic Neck: No jvd Respiratory: clear to auscultation, diminished breath sounds Cardiovascular: regular rate and rhythm, No edema Gastrointestinal: soft Neurological: nl mental status, nl speech Results Result Diagram: 06/11/16 0635 06/12/16 0600 Results 24 hrs Laboratory Tests Test 06/11/16 11:58 06/11/16 17:38 06/11/16 20:14 06/12/16 00:52 Bedside Glucose 236 H 169 212 232 H Test 06/12/16 06:00 06/12/16 08:11 Anion Gap 15 Blood Urea Nitrogen 37 H Calcium Level 8.2 L Carbon Dioxide Level 27 Chloride Level 102 Creatinine 2.20 H Glucose Level 175 Hemoglobin A1c 8.1 H Magnesium Level 2.1 Phosphorus Level 5.2 H Potassium Level 4.4 Sodium Level 140 Bedside Glucose 200 Medications Medications Current Medications Aspirin (Halfprin) 81 mg DAILY PO Last administered on 06/12/16 08:20; Admin Dose 81 MG; Start 06/10/16 at 09:00 Gabapentin (Neurontin) 600 mg TID PO Last administered on 06/12/16 08:19; Admin Dose 600 MG; Start 06/09/16 at 21:00 Miscellaneous Medication (Bystolic) 20 mg DAILY PO Last administered on 08:21; Admin Dose 20 MG; Start 06/10/16 at 09:00 Pregabalin (Lyrica) 150 mg QHS PO Last administered on 06/11/16 20:18; Admin Dose 150 MG; Start 06/09/16 at 21:00 Valacyclovir HCl (Valtrex) 1,000 mg BID PO Last administered on 06/12/16 08:20 ; Admin Dose 1,000 MG; Start 06/09/16 at 21:00 Miscellaneous Information 1 ea NOTE XX ; Start 06/09/16 at 18:30 Glucose (Glutose) 15 gm Q15M PRN PO DECREASED GLUCOSE; Start 06/09/16 at 18:30 Glucose (Glutose) 22.5 gm Q15M PRN PO DECREASED GLUCOSE; Start 06/09/16 at 18: 30 Dextrose (D50w Syringe) 25 ml Q15M PRN IV DECREASED GLUCOSE; Start 06/09/16 at 18:30 Dextrose (D50w Syringe) 50 ml Q15M PRN IV DECREASED GLUCOSE; Start 06/09/16 at 18:30 Glucagon (Glucagen) 1 mg Q15M PRN IM DECREASED GLUCOSE; Start 06/09/16 at 18:30 Glucose (Glutose) 15 gm Q15M PRN BUCCAL DECREASED GLUCOSE; Start 06/09/16 at 18 :30 Amlodipine Besylate (Norvasc) 10 mg DAILY PO Last administered on 06/12/16 08: 19; Admin Dose 10 MG; Start 06/09/16 at 20:30 Hydromorphone HCl (Dilaudid) 0.5 mg Q4H PRN IV PAIN Last administered on 00:56; Admin Dose 0.5 MG; Start 06/10/16 at 02:30 Methyldopa (Aldomet) 500 mg BID PO Last administered on 06/12/16 08:20; Admin Dose 500 MG; Start 06/10/16 at 02:30 Pantoprazole (Protonix Tab) 40 mg DAILY@06 PO Last administered on 06/12/16 06 :35; Admin Dose 40 MG; Start 06/11/16 at 06:00 Enoxaparin Sodium (Lovenox) 30 mg DAILY SC Last administered on 06/12/16 08:25 ; Admin Dose 30 MG; Start 06/11/16 at 09:00 Clonidine (Catapres) 0.2 mg Q6H PRN PO SBP above 160 Last administered on 01:02; Admin Dose 0.2 MG; Start 06/10/16 at 12:17 Hydralazine HCl (Apresoline) 10 mg Q4H PRN IV SBP >170 Last administered on 15:03; Admin Dose 10 MG; Start 06/10/16 at 15:00 Furosemide (Lasix) 20 mg DAILY PO Last administered on 06/12/16 08:20; Admin Dose 20 MG; Start 06/11/16 at 09:00 Bethanechol Chloride (Urecholine) 10 mg TID PO Last administered on 06/12/16 08:20; Admin Dose 10 MG; Start 06/11/16 at 09:00 Insulin Glargine (Lantus) 32 unit BID SC Last administered on 06/12/16 08:25; Admin Dose 32 UNIT; Start 06/11/16 at 21:00 Lorazepam (Ativan) 0.5 mg HS PO Last administered on 06/12/16 00:16; Admin Dose 0.5 MG; Start 06/11/16 at 22:00 Lisinopril (Zestril) 10 mg DAILY PO ; Start 06/12/16 at 09:00 AMISHA NIETO Jun 12, 2016 10:49
[2016-06-12] MEDS: LISINOPRIL 10 MG TAB PO SCH (11:54)
--- NOTE | 2016-06-12 15:26 | CONS ---
Date/Time of Note Date/Time of Note DATE: 06/12/16 TIME: 15:25 Consultation Date/Type/Reason Admit Date/Time Jun 09, 2016 at 12:22 Hx of Present Illness Harris Avelar M.D. 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 Jessica Suarez History of the Present Illness: A 60 year old female with a gradually increasing pelvic mass. The mass is complex and 8 cm presumadly right adnexal associated with intermittent pain and urinary symptoms. Medical history/ROS: HTN, renal, multiple medical reviewed. Surgical history: no significant abdominal procedures. Medications: reviewed multiple gardisil Allergies: No active allergies recorded Family Hx: non-contributary Social HX: non-contributary ROS: as above Colonoscopy Physical Examination General: Alert. HEENT: Pupils are equal, round, reactive to light and accommodation. Neck: Supple with no masses of lymphadenopathy. Breast: Deferred due to recent examination and responsibility of primary care physician. Chest: Clear to auscultation Heart: Normal rhythm with no murmur. Abdomen: Morbid obesity Non tender, questionable ascites no organomeglay. Pelvic exam: Possible uterine enlgt and central masses, no cul-de-sac nodularity noted Rectal: confirmatory with pelvic exam. Neurological: Grossly intact Assessment: Pelvic mass Plan: Given apparent enlarging mass would benefit from BSO and can approach laparoscopic and remove with minilaparotomy given her obesity. If she has fibroids and we think the fibroids and mass are pressing on bladder a hysterectomy would possibly benefit. Note a negative CA-125 is not diagnostic for early stage disease. Will discuss with Dr. Daniela Avelar M.D. Psychological: no complaints Social History Smoking Status: Former smoker Exam/Review of Systems Vital Signs Vitals Vital Signs Date Time Temp Pulse Resp B/P Pulse Ox O2 Delivery O2 Flow Rate FiO2 06/12/16 14:09 132/62 06/12/16 12:07 62 06/12/16 11:38 98.1 19 93 06/12/16 01:46 Nasal Cannula 2.0 Intake and Output 06/11/16 06/11/16 06/12/16 15:00 23:00 07:00 Intake Total 940 ml 600 ml 300 ml Output Total 1850 ml 1165 ml 378 ml Balance -910 ml -565 ml -78 ml Results Result Diagram: 06/11/16 0635 06/12/16 0600 Results 24 hrs Laboratory Tests Test 06/11/16 17:38 06/11/16 20:14 06/12/16 00:52 06/12/16 06:00 Bedside Glucose 169 212 232 H Anion Gap 15 Blood Urea Nitrogen 37 H Calcium Level 8.2 L Carbon Dioxide Level 27 Chloride Level 102 Creatinine 2.20 H Glucose Level 175 Hemoglobin A1c 8.1 H Magnesium Level 2.1 Phosphorus Level 5.2 H Potassium Level 4.4 Sodium Level 140 Test 06/12/16 08:11 06/12/16 11:52 Bedside Glucose 200 258 H Medications Medications Current Medications Aspirin (Halfprin) 81 mg DAILY PO Last administered on 06/12/16 08:20; Admin Dose 81 MG; Start 06/10/16 at 09:00 Gabapentin (Neurontin) 600 mg TID PO Last administered on 06/12/16 12:00; Admin Dose 600 MG; Start 06/09/16 at 21:00 Miscellaneous Medication (Bystolic) 20 mg DAILY PO Last administered on 08:21; Admin Dose 20 MG; Start 06/10/16 at 09:00 Pregabalin (Lyrica) 150 mg QHS PO Last administered on 06/11/16 20:18; Admin Dose 150 MG; Start 06/09/16 at 21:00 Valacyclovir HCl (Valtrex) 1,000 mg BID PO Last administered on 06/12/16 08:20 ; Admin Dose 1,000 MG; Start 06/09/16 at 21:00 Miscellaneous Information 1 ea NOTE XX ; Start 06/09/16 at 18:30 Glucose (Glutose) 15 gm Q15M PRN PO DECREASED GLUCOSE; Start 06/09/16 at 18:30 Glucose (Glutose) 22.5 gm Q15M PRN PO DECREASED GLUCOSE; Start 06/09/16 at 18: 30 Dextrose (D50w Syringe) 25 ml Q15M PRN IV DECREASED GLUCOSE; Start 06/09/16 at 18:30 Dextrose (D50w Syringe) 50 ml Q15M PRN IV DECREASED GLUCOSE; Start 06/09/16 at 18:30 Glucagon (Glucagen) 1 mg Q15M PRN IM DECREASED GLUCOSE; Start 06/09/16 at 18:30 Glucose (Glutose) 15 gm Q15M PRN BUCCAL DECREASED GLUCOSE; Start 06/09/16 at 18 :30 Amlodipine Besylate (Norvasc) 10 mg DAILY PO Last administered on 06/12/16 08: 19; Admin Dose 10 MG; Start 06/09/16 at 20:30 Hydromorphone HCl (Dilaudid) 0.5 mg Q4H PRN IV PAIN Last administered on 00:56; Admin Dose 0.5 MG; Start 06/10/16 at 02:30 Methyldopa (Aldomet) 500 mg BID PO Last administered on 06/12/16 08:20; Admin Dose 500 MG; Start 06/10/16 at 02:30 Pantoprazole (Protonix Tab) 40 mg DAILY@06 PO Last administered on 06/12/16 06 :35; Admin Dose 40 MG; Start 06/11/16 at 06:00 Enoxaparin Sodium (Lovenox) 30 mg DAILY SC Last administered on 06/12/16 08:25 ; Admin Dose 30 MG; Start 06/11/16 at 09:00 Clonidine (Catapres) 0.2 mg Q6H PRN PO SBP above 160 Last administered on 01:02; Admin Dose 0.2 MG; Start 06/10/16 at 12:17 Hydralazine HCl (Apresoline) 10 mg Q4H PRN IV SBP >170 Last administered on 15:03; Admin Dose 10 MG; Start 06/10/16 at 15:00 Furosemide (Lasix) 20 mg DAILY PO Last administered on 06/12/16 08:20; Admin Dose 20 MG; Start 06/11/16 at 09:00 Bethanechol Chloride (Urecholine) 10 mg TID PO Last administered on 06/12/16 11:59; Admin Dose 10 MG; Start 06/11/16 at 09:00 Insulin Glargine (Lantus) 32 unit BID SC Last administered on 06/12/16 08:25; Admin Dose 32 UNIT; Start 06/11/16 at 21:00 Lorazepam (Ativan) 0.5 mg HS PO Last administered on 06/12/16 00:16; Admin Dose 0.5 MG; Start 06/11/16 at 22:00 Lisinopril (Zestril) 10 mg DAILY PO Last administered on 06/12/16 11:54; Admin Dose 10 MG; Start 06/12/16 at 09:00 HARRIS AVELAR MD Jun 12, 2016 15:26
--- NOTE | 2016-06-12 17:14 | RADRPT ---
PROCEDURE: MRI pelvis without contrast CLINICAL INDICATION: Pelvic pain with history of ovarian mass TECHNIQUE: Multiplanar, multisequence imaging of the pelvis was obtained on a high field scanner. Images were reviewed on a high-resolution PACS workstation. COMPARISON: Pelvic ultrasound of 06/09/[address] abdomen and pelvis from 06/09/2016 FINDINGS: The uterus is anteverted. Multiple hypointense T2 masses in the uterus are seen. The largest mass i s seen in the posterior uterine body which measures approximately 4.5 x 4.2 x 3.9 cm in size.. The j unctional zone is indistinct. The endometrium does not appear to be thickened.. The cervix is unre markable. A larger right ovarian mass is seen with predominately cystic components with multiple septations. The right ovarian mass measures approximately 10.4 x 7.4 x 6.8 cm in size. The left ovary appears n ormal in size and signal intensity.. There is no evidence of abnormal T1 signal to suggest hemorrh age. There is no free fluid in the pelvis. Degenerative changes are seen within the osseous structures. There is no acute osseous abnormality. There are no enlarged lymph nodes in the pelvis with no inf lammatory changes of the mesentery. There is no evidence of bowel obstruction. There is a fecal filled colon. No inflammatory changes are seen within the superficial fat of the pelvis. The urethra and bladder are within normal limits. IMPRESSION: 1. Large complex cystic right ovarian mass which in a postmenopausal female is worrisome for an ova anson cystic neoplasm. 2. Multiple uterine masses consistent with a leiomyomatous uterus. RPTAT: HPNM Physician Brissa Date Time Electronically viewed and signed by Physician Brissa on 06/12/2016 17:14 /
--- NOTE | 2016-06-12 20:04 | CONS ---
Date/Time of Note Date/Time of Note DATE: 06/12/16 TIME: 19:55 Assessment/Plan Assessment/Plan Chief Complaint/Hosp Course 1. A right ovarian cystic mass. Etiology is unclear, concerning for possible malignancy. ca 125-n AMENDMENT to CT AP 06/12/2016 2:01:08 PM Ethan Villanueva MD Comparison is made with prior CT scan of the abdomen and pelvis dated 11/23/2009. The large right adnexal mass measures 6.7 x 8.8 x 7.4 cm on the current study and measured 3.7 x 4.6 x 4.8 cm on 11/23/2009. MRI PELVIS- Large complex cystic right ovarian mass which in a postmenopausal female is worrisome for an ovarian cystic neoplasm. Multiple uterine masses consistent with a leiomyomatous uterus. SEEN BY OBGYN WILL D/W PT AND FAMILY 2. Anemia. Continue to monitor hemoglobin and hematocrit levels. COMPLETE ANEMIA W-UP OBSERVE FOR BLEEDING AND HEMOLYSIS 3. Nonoliguric acute kidney injury on top of chronic kidney disease with a previous baseline renal function around 1.5 to 2 mg/dL. Etiology of acute kidney injury is possibly secondary to urinary retention, obstructive uropathy versus hemodynamics, possible cardiorenal syndrome. The patient's urinalysis shows findings of proteinuria but no pyuria, no hematuria, and a CT scan of the abdomen and pelvis showed no evidence of hydronephrosis. Plan at this point is to check a renal ultrasound. Will repeat UA with microanalysis. Will check urine electrolytes. Will continue supportive care, renally dose medications, avoid nephrotoxins, monitor renal function closely. Clinical albuminuria - PER NEPHROLOGY 4 Urinary retention. Underlying etiology is unclear. The patient is status post Flynn catheter placement with good urinary output. Seen by urology still unable to urinate on intermittent catheterizations started on URECHOLINE VOIDED X 1 TODAY 5. Acute decompensated diastolic heart failure. The patient noted to have pulmonary congestion, lower extremity edema. The patient is status post Lasix; will continue. cardiology F-UP 6. History of coronary artery disease, status post coronary artery bypass graft. Continue current medical management. 7. Diabetes. Will continue Accu-Cheks, insulin sliding scale, continue Lantus. HB A1C- 8.1 8. Chronic kidney disease stage IIIB/IV. Etiology is multifactorial secondary to diabetes, hypertension. The patient is currently in acute kidney injury as stated above. Continue medical management. 9. Morbid obesity. Continue dietary modification. 10. Dyslipidemia. Continue statin therapy. 11. Obstructive sleep apnea. Continue supplemental oxygen. Consider a pulmonary consult for evaluation. 12. Hypertension- POORLY CONTROLLED Continue current blood pressure regimen. Will adjust medications as needed. CARDIOLOGY F-UP 13. History of peripheral vascular disease. Continue current medical management. 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 SEVERE DJD/OA WITH CHRONIC PAIN 16. GI PROBLEMS- WITH ABD PAIN, DIARRHEA/ ALTERNATING WITH CONSTIPATION GI EVAL AND F-UP Problems: Consultation Date/Type/Reason Admit Date/Time Jun 09, 2016 at 12:22 Initial Consult Date 06/09/16 [facility] Provider: CRISTA HERNANDEZ DO 24 HR Interval Summary Free Text/Dictation MRI PELVIS- REVIEWED MASS, CONCERNING FOR MALIGNANCY CA 125- N PT HAS BEEN SEEN BY GYNEONC WILL D/W PT AND TOMORROW VOIDED X 1 Exam/Review of Systems Vital Signs Vitals Vital Signs Date Time Temp Pulse Resp B/P Pulse Ox O2 Delivery O2 Flow Rate FiO2 06/12/16 16:20 98.2 57 18 140/64 93 Room Air 06/12/16 01:46 2.0 Intake and Output 06/11/16 06/11/16 06/12/16 15:00 23:00 07:00 Intake Total 940 ml 600 ml 300 ml Output Total 1850 ml 1165 ml 378 ml Balance -910 ml -565 ml -78 ml Exam HEENT: Head is normocephalic. NECK: Supple. HEART: Regular rate. LUNGS: Show diminished breath sounds at the base. ABDOMEN: Soft, nontender to palpation. No rebound or guarding. EXTREMITIES: Negative for clubbing, cyanosis. Positive edema. DERMATOLOGIC: No rashes. MUSCULOSKELETAL: No joint effusions. NEUROLOGIC: No change in exam. LOWER EXTREMITIES: The patient has chronic venous insufficiency and trace edema. Results Result Diagram: 06/11/16 0635 06/12/16 0600 Results 24 hrs Laboratory Tests Test 06/11/16 20:14 06/12/16 00:52 06/12/16 06:00 06/12/16 08:11 Bedside Glucose 212 232 H 200 Anion Gap 15 Blood Urea Nitrogen 37 H Calcium Level 8.2 L Carbon Dioxide Level 27 Chloride Level 102 Creatinine 2.20 H Glucose Level 175 Hemoglobin A1c 8.1 H Magnesium Level 2.1 Phosphorus Level 5.2 H Potassium Level 4.4 Sodium Level 140 Test 06/12/16 11:52 06/12/16 17:43 Bedside Glucose 258 H 201 Medications Medications Current Medications Aspirin (Halfprin) 81 mg DAILY PO Last administered on 06/12/16 08:20; Admin Dose 81 MG; Start 06/10/16 at 09:00 Gabapentin (Neurontin) 600 mg TID PO Last administered on 06/12/16 12:00; Admin Dose 600 MG; Start 06/09/16 at 21:00 Miscellaneous Medication (Bystolic) 20 mg DAILY PO Last administered on 08:21; Admin Dose 20 MG; Start 06/10/16 at 09:00 Pregabalin (Lyrica) 150 mg QHS PO Last administered on 06/11/16 20:18; Admin Dose 150 MG; Start 06/09/16 at 21:00 Valacyclovir HCl (Valtrex) 1,000 mg BID PO Last administered on 06/12/16 08:20 ; Admin Dose 1,000 MG; Start 06/09/16 at 21:00 Miscellaneous Information 1 ea NOTE XX ; Start 06/09/16 at 18:30 Glucose (Glutose) 15 gm Q15M PRN PO DECREASED GLUCOSE; Start 06/09/16 at 18:30 Glucose (Glutose) 22.5 gm Q15M PRN PO DECREASED GLUCOSE; Start 06/09/16 at 18: 30 Dextrose (D50w Syringe) 25 ml Q15M PRN IV DECREASED GLUCOSE; Start 06/09/16 at 18:30 Dextrose (D50w Syringe) 50 ml Q15M PRN IV DECREASED GLUCOSE; Start 06/09/16 at 18:30 Glucagon (Glucagen) 1 mg Q15M PRN IM DECREASED GLUCOSE; Start 06/09/16 at 18:30 Glucose (Glutose) 15 gm Q15M PRN BUCCAL DECREASED GLUCOSE; Start 06/09/16 at 18 :30 Amlodipine Besylate (Norvasc) 10 mg DAILY PO Last administered on 06/12/16 08: 19; Admin Dose 10 MG; Start 06/09/16 at 20:30 Hydromorphone HCl (Dilaudid) 0.5 mg Q4H PRN IV PAIN Last administered on 00:56; Admin Dose 0.5 MG; Start 06/10/16 at 02:30 Methyldopa (Aldomet) 500 mg BID PO Last administered on 06/12/16 08:20; Admin Dose 500 MG; Start 06/10/16 at 02:30 Pantoprazole (Protonix Tab) 40 mg DAILY@06 PO Last administered on 06/12/16 06 :35; Admin Dose 40 MG; Start 06/11/16 at 06:00 Enoxaparin Sodium (Lovenox) 30 mg DAILY SC Last administered on 06/12/16 08:25 ; Admin Dose 30 MG; Start 06/11/16 at 09:00 Clonidine (Catapres) 0.2 mg Q6H PRN PO SBP above 160 Last administered on 01:02; Admin Dose 0.2 MG; Start 06/10/16 at 12:17 Hydralazine HCl (Apresoline) 10 mg Q4H PRN IV SBP >170 Last administered on 15:03; Admin Dose 10 MG; Start 06/10/16 at 15:00 Furosemide (Lasix) 20 mg DAILY PO Last administered on 06/12/16 08:20; Admin Dose 20 MG; Start 06/11/16 at 09:00 Bethanechol Chloride (Urecholine) 10 mg TID PO Last administered on 06/12/16 11:59; Admin Dose 10 MG; Start 06/11/16 at 09:00 Insulin Glargine (Lantus) 32 unit BID SC Last administered on 06/12/16 08:25; Admin Dose 32 UNIT; Start 06/11/16 at 21:00 Lorazepam (Ativan) 0.5 mg HS PO Last administered on 06/12/16 00:16; Admin Dose 0.5 MG; Start 06/11/16 at 22:00 Lisinopril (Zestril) 10 mg DAILY PO Last administered on 06/12/16 11:54; Admin Dose 10 MG; Start 06/12/16 at 09:00 Procedures Procedures [place] [id number] Radiology Main Line: [phone] DIAGNOSTIC IMAGING REPORT Patient: MACARIO HERNANDEZ : 1955 Age: 60 Sex: F MR #: [id number] DOS: 06/12/16 0000 Ordering MD: SHARLA SOUSA MD Location: [facility]: MRI pelvis without contrast CLINICAL INDICATION: Pelvic pain with history of ovarian mass TECHNIQUE: Multiplanar, multisequence imaging of the pelvis was obtained on a high field scanner. Images were reviewed on a high-resolution PACS workstation. COMPARISON: Pelvic ultrasound of 06/09/[address] abdomen and pelvis from FINDINGS: The uterus is anteverted. Multiple hypointense T2 masses in the uterus are seen. The largest mass is seen in the posterior uterine body which measures approximately 4.5 x 4.2 x 3.9 cm in size.. The junctional zone is indistinct. The endometrium does not appear to be thickened.. The cervix is unremarkable. A larger right ovarian mass is seen with predominately cystic components with multiple septations. The right ovarian mass measures approximately 10.4 x 7.4 x 6.8 cm in size. The left ovary appears normal in size and signal intensity.. There is no evidence of abnormal T1 signal to suggest hemorrhage. There is no free fluid in the pelvis. Degenerative changes are seen within the osseous structures. There is no acute osseous abnormality. There are no enlarged lymph nodes in the pelvis with no inflammatory changes of the mesentery. There is no evidence of bowel obstruction. There is a fecal filled colon. No inflammatory changes are seen within the superficial fat of the pelvis. The urethra and bladder are within normal limits. IMPRESSION: 1. Large complex cystic right ovarian mass which in a postmenopausal female is worrisome for an ovarian cystic neoplasm. 2. Multiple uterine masses consistent with a leiomyomatous uterus. RPTAT: [facility]PNM Physician Brissa Date Time Electronically viewed and signed by Jayant Baker Physician on 06/12/2016 17 :14 / CC: SHARLA SOUSA MD, VERA M MD Jun 12, 2016 20:04
[2016-06-12] MEDS: PREGABALIN 75 MG CAP PO SCH (21:30)
[2016-06-13] VITALS (7 sets, daily range): BP systolic 135–165; BP diastolic 65–78; PULSE 68–78; RESP 18–20
[2016-06-13] MEDS ORDERED: LORAZEPAM 1 MG TAB PO ONE (00:30)
[2016-06-13] MEDS ORDERED: NEOMYC/POLYMYX/BACIT 0.9 GM OINT ONE ×2 (04:32→22:10)
[2016-06-13] MEDS: HYDROmorphONE 1 MG/ML SYG IV PRN ×4 (04:34→14:28)
[2016-06-13 05:30] LABS: POTASSIUM 4.2 mmol/L (3.5-5.1)
[2016-06-13 05:32] LABS: CREATININE 2.22 mg/dl (0.44-1.00)
[2016-06-13] MEDS: PANTOPRAZOLE (EC) 40 MG TAB PO SCH (05:49)
[2016-06-13] MEDS: INSULIN ASPART [NOVOLOG] 3 ML PEN SC SCH ×4 (09:56→20:39)
[2016-06-13] MEDS: INSULIN GLARGINE [LANtus] 3 ML PEN SC SCH ×2 (09:59→20:34)
--- NOTE | 2016-06-13 10:32 | CONS ---
Date/Time of Note Date/Time of Note DATE: 06/13/16 TIME: 10:29 Consult Date/Type/Reason Admit Date/Time Jun 09, 2016 at 12:22 Initial Consult Date 06/10/16 Type of Consultation: neph Ordering Provider: CRISTA HERNANDEZ DO Subjective She patient is stable. She is making urine after Flynn catheter was removed . The patient remains hypertensive with systolic pressures rising as high as 190 to 200, no other acute events noted. No hemoptysis, hematemesis, hematochezia. OBJECTIVE: VITAL SIGNS: Blood pressure is 191/87, respiratory rate 20, pulse 62, temperature 97.7. HEENT: Head is normocephalic. NECK: Supple. HEART: Regular rate. LUNGS: Show diminished breath sounds at the base. ABDOMEN: Soft, nontender to palpation. No rebound or guarding. EXTREMITIES: Negative for clubbing, cyanosis. Positive edema. DERMATOLOGIC: No rashes. MUSCULOSKELETAL: No joint effusions. NEUROLOGIC: No change in exam. LOWER EXTREMITIES: The patient has chronic venous insufficiency and trace edema. MEDICATIONS: The patient's medications have been reviewed. Objective Vital Signs Date Time Temp Pulse Resp B/P Pulse Ox O2 Delivery O2 Flow Rate FiO2 06/13/16 07:58 98.2 72 18 145/67 Room Air Nasal Cannula 06/13/16 04:51 98 2.0 Intake and Output 06/12/16 06/12/16 06/13/16 15:00 23:00 07:00 Intake Total 240 ml 900 ml Output Total 450 ml 800 ml Balance -450 ml 240 ml 100 ml Results/Medications Result Diagram: 06/11/16 0635 06/13/16 0434 Results 24 hrs Laboratory Tests Test 06/12/16 11:52 06/12/16 17:43 06/12/16 21:27 06/13/16 04:34 Bedside Glucose 258 H 201 250 H Anion Gap 15 Blood Urea Nitrogen 39 H Calcium Level 8.0 L Carbon Dioxide Level 25 Chloride Level 107 Creatinine 2.22 H Glucose Level 164 Potassium Level 4.2 Sodium Level 143 Test 06/13/16 08:07 Bedside Glucose 193 Medications Current Medications Aspirin (Halfprin) 81 mg DAILY PO Last administered on 06/12/16t 08:20; Admin Dose 81 MG; Start 06/10/16 at 09:00 Gabapentin (Neurontin) 600 mg TID PO Last administered on 06/12/16 21:30; Admin Dose 600 MG; Start 06/09/16 at 21:00 Miscellaneous Medication (Bystolic) 20 mg DAILY PO Last administered on 08:21; Admin Dose 20 MG; Start 06/10/16 at 09:00 Pregabalin (Lyrica) 150 mg QHS PO Last administered on 06/12/16 21:30; Admin Dose 150 MG; Start 06/09/16 at 21:00 Valacyclovir HCl (Valtrex) 1,000 mg BID PO Last administered on 06/12/16 21:31 ; Admin Dose 1,000 MG; Start 06/09/16 at 21:00 Miscellaneous Information 1 ea NOTE XX ; Start 06/09/16 at 18:30 Glucose (Glutose) 15 gm Q15M PRN PO DECREASED GLUCOSE; Start 06/09/16 at 18:30 Glucose (Glutose) 22.5 gm Q15M PRN PO DECREASED GLUCOSE; Start 06/09/16 at 18: 30 Dextrose (D50w Syringe) 25 ml Q15M PRN IV DECREASED GLUCOSE; Start 06/09/16 at 18:30 Dextrose (D50w Syringe) 50 ml Q15M PRN IV DECREASED GLUCOSE; Start 06/09/16 at 18:30 Glucagon (Glucagen) 1 mg Q15M PRN IM DECREASED GLUCOSE; Start 06/09/16 at 18:30 Glucose (Glutose) 15 gm Q15M PRN BUCCAL DECREASED GLUCOSE; Start 06/09/16 at 18 :30 Amlodipine Besylate (Norvasc) 10 mg DAILY PO Last administered on 06/12/16 08: 19; Admin Dose 10 MG; Start 06/09/16 at 20:30 Hydromorphone HCl (Dilaudid) 0.5 mg Q4H PRN IV PAIN Last administered on 04:34; Admin Dose 0.5 MG; Start 06/10/16 at 02:30 Methyldopa (Aldomet) 500 mg BID PO Last administered on 06/12/16 21:29; Admin Dose 500 MG; Start 06/10/16 at 02:30 Pantoprazole (Protonix Tab) 40 mg DAILY@06 PO Last administered on 06/12/16 06 :35; Admin Dose 40 MG; Start 06/11/16 at 06:00 Enoxaparin Sodium (Lovenox) 30 mg DAILY SC Last administered on 06/12/16 08:25 ; Admin Dose 30 MG; Start 06/11/16 at 09:00 Clonidine (Catapres) 0.2 mg Q6H PRN PO SBP above 160 Last administered on 01:02; Admin Dose 0.2 MG; Start 06/10/16 at 12:17 Hydralazine HCl (Apresoline) 10 mg Q4H PRN IV SBP >170 Last administered on 15:03; Admin Dose 10 MG; Start 06/10/16 at 15:00 Furosemide (Lasix) 20 mg DAILY PO Last administered on 06/12/16 08:20; Admin Dose 20 MG; Start 06/11/16 at 09:00 Bethanechol Chloride (Urecholine) 10 mg TID PO Last administered on 06/12/16 11:59; Admin Dose 10 MG; Start 06/11/16 at 09:00 Insulin Glargine (Lantus) 32 unit BID SC Last administered on 06/13/16 09:59; Admin Dose 32 UNIT; Start 06/11/16 at 21:00 Lorazepam (Ativan) 0.5 mg HS PO Last administered on 06/12/16 21:29; Admin Dose 0.5 MG; Start 06/11/16 at 22:00 Lisinopril (Zestril) 10 mg DAILY PO Last administered on 06/12/16 11:54; Admin Dose 10 MG; Start 06/12/16 at 09:00 Assessment/Plan Chief Complaint/Hosp Course 1. Nonoliguric acute kidney injury on top of chronic kidney disease with baseline creatinine 1.5 to 2 mg/dL. Etiology of acute kidney injury is multifactorial, secondary to hemodynamics from urinary retention. Renal function appears to be stabilizing. Will start the patient on lisinopril 10 mg daily as the patient has proteinuria on protein/creatinine ratio. We will monitor renal function closely. Continue supportive care. 3. Urinary retention. Etiology may be secondary to neurogenic bladder. The patient's Flynn catheter was removed. Continue to monitor closely. Follow up with urology. 4. Right ovarian cystic mass, etiology is unclear. Questionable malignancy. The patient is being followed by Dr. Suarez, an MRI is pending. Would defer any contrast given the patient's underlying chronic kidney disease. 5. Acute decompensated diastolic heart failure. The patient is clinically improving. Continue current medical management. Follow up with cardiology. 6. Hypertension. Blood pressure improved on low-dose PATIENCE inhibitor. If renal function remains stable, we will up titrate. Will otherwise continue other blood pressure medicines. 7. Anemia. Continue to monitor hemoglobin and hematocrit levels. Will give Epogen as needed. 8. Diabetes. Continue current insulin regimen. 9. History of coronary artery disease, status post coronary artery bypass graft. Continue current medical management. 10. Chronic kidney disease stage IV. Etiology is multifactorial secondary to diabetes, hypertension. The patient is currently in acute kidney injury as stated above. Will continue disease-factor modifications. 11. Morbid obesity. Continue dietary modification. 12. Dyslipidemia. Continue statin therapy. 13. History of sleep apnea. Continue to monitor. 14. Peripheral vascular disease. Continue current treatment plan. 15. Neuropathy. Continue Lyrica. 16. Debility. Continue PT, OT. 17. Gastrointestinal and deep venous thrombosis prophylaxis. Continue proton pump inhibitor, sequential leg squeezers, Lovenox. Problems: BRITTANEY GIFFORD MD Jun 13, 2016 10:32
[2016-06-13] MEDS: ASPIRIN (EC) 81 MG TAB PO SCH (10:41)
[2016-06-13] MEDS: BETHANECHOL 10 MG TAB PO SCH (10:41)
[2016-06-13] MEDS: VALACYCLOVIR 500 MG TAB PO SCH ×2 (10:41→20:41)
[2016-06-13] MEDS: GABAPENTIN 300 MG CAP PO SCH ×3 (10:42→20:44)
[2016-06-13] MEDS: FUROSEMIDE 20 MG TAB PO SCH (10:48)
[2016-06-13] MEDS: LISINOPRIL 10 MG TAB PO SCH (10:49)
[2016-06-13] MEDS: AMLODIPINE 10 MG TAB PO SCH (10:49)
[2016-06-13] MEDS: NEBIVOLOL 5 MG TAB PO SCH (10:50)
--- NOTE | 2016-06-13 11:37 | PN ---
DATE: 06/13/2016 SUBJECTIVE: Urinary retention and patient does have fibroid uterus and a pelvic mass, most likely o varian mass and possibility of neoplasm is entertained. The patient was seen by Dr. Hunt in [facility] consultation. As far as her urinary problem, she has not been able to urinate and still u nable to urinate and I have started her on Urecholine 10 mg 3 times a day. Even with that, she has not urinated. OBJECTIVE: VITAL SIGNS: Temperature is 98.2, pulse is 72, respirations 18, blood pressure 140/78. ABDOMEN: Large and obese. LABORATORY DATA: Her last CBC shows a white count of 6.7, hemoglobin 12.3. BUN is 39, creatinine 2 .22. The patient did have a pelvic MRI and that showed a large complex cystic right ovarian mass, w hich in a postmenopausal female who is worrisome for an ovarian cystic neoplasm. Multiple uterine m asses consistent with leiomyomatous uterus. IMPRESSION: Urinary retention. The patient is on Urecholine 10 mg 3 times a day. Since that has n ot helped her, so I increased it to 25 mg 3 times a day. Continue to check her voiding and her post void residual, and do straight catheterization on her as needed. The possibility of the uterine mas s and the ovarian mass pressing and causing her the retention is a possibility and therefore, the pa thony should consider having the ovarian mass removed if it is suspicious for cancer. Urologically, we will just increase her Urecholine to 25 mg 3 times a day and see if she is able to void. Dictated By: GUANACO CURRAN/BIRGIT Conf#: [id number] DID#: [id number]
[2016-06-13] MEDS: METHYLDOPA 500 MG TAB PO SCH ×2 (12:28→20:44)
[2016-06-13] MEDS: BETHANECHOL 25 MG TAB PO SCH ×2 (12:28→20:44)
[2016-06-13] MEDS: ENOXAPARIN 30 MG/0.3 ML SYG SC SCH (12:38)
--- NOTE | 2016-06-13 15:19 | PN ---
Date/Time of Note Date/Time of Note DATE: 06/13/16 TIME: 15:13 Assessment/Plan VTE Prophylaxis VTE Prophylaxis Intervention: LMWH Lines/Catheters IV [facility] [place] [facility] Urinary Cath still in place: No Assessment/Plan Chief Complaint/Hosp Course Pelvic mass, multiple medical issues, urinary frequency Problems: Assessment/Plan A/P- Discussed surgery and advised that will observe urologic response to medication and surgery definitely an option but requires clearance. Would approach laparoscopic and can do LSH/BSO with minilap and stage if needed. Subjective 24 Hr Interval Summary Free Text/Dictation S- tolerating diet but on O2 and indicates urinary symptom persist, although medication just modified. O- Resp- clear CVS- NSR Abd- unchanged Ext NT mod edema A/P- Discussed surgery and advised that will observe urologic response to medication and surgery definitely an option but requires clearance. Would approach laparoscopic and can do LSH/BSO with minilap and stage if needed. Exam/Review of Systems Vital Signs Vitals Vital Signs Date Time Temp Pulse Resp B/P Pulse Ox O2 Delivery O2 Flow Rate FiO2 06/13/16 10:41 165/70 06/13/16 09:00 18 96 Nasal Cannula 2.0 06/13/16 07:58 98.2 72 Intake and Output 06/12/16 06/12/16 06/13/16 15:00 23:00 07:00 Intake Total 240 ml 900 ml Output Total 450 ml 800 ml Balance -450 ml 240 ml 100 ml Results Result Diagram: 06/11/16 0635 06/13/16 0434 Results 24 hrs Laboratory Tests Test 06/12/16 17:43 06/12/16 21:27 06/13/16 04:34 06/13/16 08:07 Bedside Glucose 201 250 H 193 Anion Gap 15 Blood Urea Nitrogen 39 H Calcium Level 8.0 L Carbon Dioxide Level 25 Chloride Level 107 Creatinine 2.22 H Glucose Level 164 Potassium Level 4.2 Sodium Level 143 Test 06/13/16 12:23 Bedside Glucose 261 H Medications Medications Current Medications Aspirin (Halfprin) 81 mg DAILY PO Last administered on 06/13/16 10:41; Admin Dose 81 MG; Start 06/10/16 at 09:00 Gabapentin (Neurontin) 600 mg TID PO Last administered on 06/13/16 12:27; Admin Dose 600 MG; Start 06/09/16 at 21:00 Miscellaneous Medication (Bystolic) 20 mg DAILY PO Last administered on 10:50; Admin Dose 20 MG; Start 06/10/16 at 09:00 Pregabalin (Lyrica) 150 mg QHS PO Last administered on 06/12/16 21:30; Admin Dose 150 MG; Start 06/09/16 at 21:00 Valacyclovir HCl (Valtrex) 1,000 mg BID PO Last administered on 06/13/16 10:41 ; Admin Dose 1,000 MG; Start 06/09/16 at 21:00 Miscellaneous Information 1 ea NOTE XX ; Start 06/09/16 at 18:30 Glucose (Glutose) 15 gm Q15M PRN PO DECREASED GLUCOSE; Start 06/09/16 at 18:30 Glucose (Glutose) 22.5 gm Q15M PRN PO DECREASED GLUCOSE; Start 06/09/16 at 18: 30 Dextrose (D50w Syringe) 25 ml Q15M PRN IV DECREASED GLUCOSE; Start 06/09/16 at 18:30 Dextrose (D50w Syringe) 50 ml Q15M PRN IV DECREASED GLUCOSE; Start 06/09/16 at 18:30 Glucagon (Glucagen) 1 mg Q15M PRN IM DECREASED GLUCOSE; Start 06/09/16 at 18:30 Glucose (Glutose) 15 gm Q15M PRN BUCCAL DECREASED GLUCOSE; Start 06/09/16 at 18 :30 Amlodipine Besylate (Norvasc) 10 mg DAILY PO Last administered on 06/13/16 10: 49; Admin Dose 10 MG; Start 06/09/16 at 20:30 Hydromorphone HCl (Dilaudid) 0.5 mg Q4H PRN IV PAIN Last administered on 14:28; Admin Dose 0.5 MG; Start 06/10/16 at 02:30 Methyldopa (Aldomet) 500 mg BID PO Last administered on 06/13/16 12:28; Admin Dose 500 MG; Start 06/10/16 at 02:30 Pantoprazole (Protonix Tab) 40 mg DAILY@06 PO Last administered on 06/12/16 06 :35; Admin Dose 40 MG; Start 06/11/16 at 06:00 Enoxaparin Sodium (Lovenox) 30 mg DAILY SC Last administered on 06/13/16 12:38 ; Admin Dose 30 MG; Start 06/11/16 at 09:00 Clonidine (Catapres) 0.2 mg Q6H PRN PO SBP above 160 Last administered on 01:02; Admin Dose 0.2 MG; Start 06/10/16 at 12:17 Hydralazine HCl (Apresoline) 10 mg Q4H PRN IV SBP >170 Last administered on 15:03; Admin Dose 10 MG; Start 06/10/16 at 15:00 Furosemide (Lasix) 20 mg DAILY PO Last administered on 06/13/16 10:48; Admin Dose 20 MG; Start 06/11/16 at 09:00 Insulin Glargine (Lantus) 32 unit BID SC Last administered on 06/13/16 09:59; Admin Dose 32 UNIT; Start 06/11/16 at 21:00 Lorazepam (Ativan) 0.5 mg HS PO Last administered on 06/12/16 21:29; Admin Dose 0.5 MG; Start 06/11/16 at 22:00 Lisinopril (Zestril) 10 mg DAILY PO Last administered on 06/13/16 10:49; Admin Dose 10 MG; Start 06/12/16 at 09:00 Bethanechol Chloride (Urecholine) 25 mg TID PO Last administered on 06/13/16 12:28; Admin Dose 25 MG; Start 06/13/16 at 13:00 HARRIS AVELAR MD Jun 13, 2016 15:19
[2016-06-13] MEDS: PREGABALIN 75 MG CAP PO SCH (20:45)
[2016-06-13] MEDS: LORAZEPAM 0.5 MG TAB PO SCH ×2 (21:00→23:31)
--- NOTE | 2016-06-13 21:41 | CONS ---
Date/Time of Note Date/Time of Note DATE: 06/13/16 TIME: 21:37 Assessment/Plan Assessment/Plan Chief Complaint/Hosp Course 1. A right ovarian cystic mass. Etiology is unclear, concerning for possible malignancy. ca 125-n AMENDMENT to CT AP 06/12/2016 2:01:08 PM Ethan Villanueva MD Comparison is made with prior CT scan of the abdomen and pelvis dated 11/23/2009. The large right adnexal mass measures 6.7 x 8.8 x 7.4 cm on the current study and measured 3.7 x 4.6 x 4.8 cm on 11/23/2009. MRI PELVIS- Large complex cystic right ovarian mass which in a postmenopausal female is worrisome for an ovarian cystic neoplasm. Multiple uterine masses consistent with a leiomyomatous uterus. SEEN BY GYNEONC-will observe urologic response to medication and surgery definitely an option but requires clearance. Would approach laparoscopic and can do LSH/BSO with minilap and stage if needed. D/W PT AND FAMILY 2. Anemia. Continue to monitor hemoglobin and hematocrit levels. + component ACD OBSERVE FOR BLEEDING AND HEMOLYSIS 3. Nonoliguric acute kidney injury on top of chronic kidney disease with a previous baseline renal function around 1.5 to 2 mg/dL. Etiology of acute kidney injury is possibly secondary to urinary retention, obstructive uropathy versus hemodynamics, possible cardiorenal syndrome. The patient's urinalysis shows findings of proteinuria but no pyuria, no hematuria, and a CT scan of the abdomen and pelvis showed no evidence of hydronephrosis. Plan at this point is to check a renal ultrasound. Will repeat UA with microanalysis. Will check urine electrolytes. Will continue supportive care, renally dose medications, avoid nephrotoxins, monitor renal function closely. Clinical albuminuria - PER NEPHROLOGY 4 Urinary retention. Underlying etiology is unclear. The patient is status post Flynn catheter placement with good urinary output. Seen by urology still unable to urinate on intermittent catheterizations URECHOLINE - DOSE INCREASED 5. Acute decompensated diastolic heart failure. The patient noted to have pulmonary congestion, lower extremity edema. The patient is status post Lasix; will continue- PER NEPHRO cardiology F-UP 6. History of coronary artery disease, status post coronary artery bypass graft. Continue current medical management. 7. Diabetes. Will continue Accu-Cheks, insulin sliding scale, continue Lantus. HB A1C- 8.1 8. Chronic kidney disease stage IIIB/IV. Etiology is multifactorial secondary to diabetes, hypertension. The patient is currently in acute kidney injury as stated above. Continue medical management. 9. Morbid obesity. Continue dietary modification. 10. Dyslipidemia. Continue statin therapy. 11. Obstructive sleep apnea. Continue supplemental oxygen. Consider a pulmonary consult for evaluation. 12. Hypertension- POORLY CONTROLLED Continue current blood pressure regimen. Will adjust medications as needed. CARDIOLOGY F-UP 13. History of peripheral vascular disease. Continue current medical management. 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 SEVERE DJD/OA WITH CHRONIC PAIN 16. GI PROBLEMS- WITH ABD PAIN, DIARRHEA/ ALTERNATING WITH CONSTIPATION GI EVAL AND F-UP Problems: Consultation Date/Type/Reason Admit Date/Time Jun 09, 2016 at 12:22 Initial Consult Date 06/09/16 [facility] of Consultation: [facility] Referring Provider: CRISTA HERNANDEZ DO 24 HR Interval Summary Free Text/Dictation ALL NOTED D/W PT AND DR LOWRY- Discussed surgery PER GYNEONC- will observe urologic response to medication and surgery definitely an option but requires clearance. Would approach laparoscopic and can do LSH/BSO with minilap and stage if needed. BP AND ACCUCHECK- BETTER Exam/Review of Systems Vital Signs Vitals Vital Signs Date Time Temp Pulse Resp B/P Pulse Ox O2 Delivery O2 Flow Rate FiO2 06/13/16 16:00 70 18 139/75 96 Nasal Cannula 06/13/16 15:30 98.1 06/13/16 09:00 2.0 Intake and Output 06/12/16 06/12/16 06/13/16 15:00 23:00 07:00 Intake Total 240 ml 900 ml Output Total 450 ml 800 ml Balance -450 ml 240 ml 100 ml Exam Constitutional: alert, oriented Psych: no complaints Head: normocephalic Neck: No jvd Respiratory: clear to auscultation, diminished breath sounds Cardiovascular: regular rate and rhythm, No edema Gastrointestinal: soft Neurological: nl mental status, nl speech Results Result Diagram: 06/11/16 0635 06/13/16 0434 Results 24 hrs Laboratory Tests Test 06/13/16 04:34 06/13/16 08:07 06/13/16 12:23 06/13/16 20:31 Anion Gap 15 Blood Urea Nitrogen 39 H Calcium Level 8.0 L Carbon Dioxide Level 25 Chloride Level 107 Creatinine 2.22 H Glucose Level 164 Potassium Level 4.2 Sodium Level 143 Bedside Glucose 193 261 H 249 H Medications Medications Current Medications Aspirin (Halfprin) 81 mg DAILY PO Last administered on 06/13/16 10:41; Admin Dose 81 MG; Start 06/10/16 at 09:00 Gabapentin (Neurontin) 600 mg TID PO Last administered on 06/13/16 20:44; Admin Dose 600 MG; Start 06/09/16 at 21:00 Miscellaneous Medication (Bystolic) 20 mg DAILY PO Last administered on 10:50; Admin Dose 20 MG; Start 06/10/16 at 09:00 Pregabalin (Lyrica) 150 mg QHS PO Last administered on 06/13/16 20:45; Admin Dose 150 MG; Start 06/09/16 at 21:00 Valacyclovir HCl (Valtrex) 1,000 mg BID PO Last administered on 06/13/16 20:41 ; Admin Dose 1,000 MG; Start 06/09/16 at 21:00 Miscellaneous Information 1 ea NOTE XX ; Start 06/09/16 at 18:30 Glucose (Glutose) 15 gm Q15M PRN PO DECREASED GLUCOSE; Start 06/09/16 at 18:30 Glucose (Glutose) 22.5 gm Q15M PRN PO DECREASED GLUCOSE; Start 06/09/16 at 18: 30 Dextrose (D50w Syringe) 25 ml Q15M PRN IV DECREASED GLUCOSE; Start 06/09/16 at 18:30 Dextrose (D50w Syringe) 50 ml Q15M PRN IV DECREASED GLUCOSE; Start 06/09/16 at 18:30 Glucagon (Glucagen) 1 mg Q15M PRN IM DECREASED GLUCOSE; Start 06/09/16 at 18:30 Glucose (Glutose) 15 gm Q15M PRN BUCCAL DECREASED GLUCOSE; Start 06/09/16 at 18 :30 Amlodipine Besylate (Norvasc) 10 mg DAILY PO Last administered on 06/13/16 10: 49; Admin Dose 10 MG; Start 06/09/16 at 20:30 Hydromorphone HCl (Dilaudid) 0.5 mg Q4H PRN IV PAIN Last administered on 14:28; Admin Dose 0.5 MG; Start 06/10/16 at 02:30 Methyldopa (Aldomet) 500 mg BID PO Last administered on 06/13/16 20:44; Admin Dose 500 MG; Start 06/10/16 at 02:30 Pantoprazole (Protonix Tab) 40 mg DAILY@06 PO Last administered on 06/12/16 06 :35; Admin Dose 40 MG; Start 06/11/16 at 06:00 Enoxaparin Sodium (Lovenox) 30 mg DAILY SC Last administered on 06/13/16 12:38 ; Admin Dose 30 MG; Start 06/11/16 at 09:00 Clonidine (Catapres) 0.2 mg Q6H PRN PO SBP above 160 Last administered on 01:02; Admin Dose 0.2 MG; Start 06/10/16 at 12:17 Hydralazine HCl (Apresoline) 10 mg Q4H PRN IV SBP >170 Last administered on 15:03; Admin Dose 10 MG; Start 06/10/16 at 15:00 Furosemide (Lasix) 20 mg DAILY PO Last administered on 06/13/16 10:48; Admin Dose 20 MG; Start 06/11/16 at 09:00 Insulin Glargine (Lantus) 32 unit BID SC Last administered on 06/13/16 20:34; Admin Dose 32 UNIT; Start 06/11/16 at 21:00 Lorazepam (Ativan) 0.5 mg HS PO Last administered on 06/12/16 21:29; Admin Dose 0.5 MG; Start 06/11/16 at 22:00 Lisinopril (Zestril) 10 mg DAILY PO Last administered on 06/13/16 10:49; Admin Dose 10 MG; Start 06/12/16 at 09:00 Bethanechol Chloride (Urecholine) 25 mg TID PO Last administered on 06/13/16 20:44; Admin Dose 25 MG; Start 06/13/16 at 13:00 SHARLA SOUSA MD Jun 13, 2016 21:41
[2016-06-14] MEDS: PANTOPRAZOLE (EC) 40 MG TAB PO SCH (07:15)
[2016-06-14 08:35] VITALS: BP 103/82; RESP 18
[2016-06-14] MEDS: METHYLDOPA 500 MG TAB PO SCH ×2 (09:17→20:47)
[2016-06-14] MEDS: VALACYCLOVIR 500 MG TAB PO SCH ×2 (09:18→20:46)
[2016-06-14] MEDS: ASPIRIN (EC) 81 MG TAB PO SCH (09:18)
[2016-06-14] MEDS: BETHANECHOL 25 MG TAB PO SCH ×3 (09:18→20:46)
[2016-06-14] MEDS: GABAPENTIN 300 MG CAP PO SCH ×3 (09:18→20:46)
[2016-06-14] MEDS: AMLODIPINE 10 MG TAB PO SCH (09:19)
[2016-06-14] MEDS: LISINOPRIL 10 MG TAB PO SCH (09:19)
[2016-06-14] MEDS: FUROSEMIDE 20 MG TAB PO SCH (09:19)
[2016-06-14] MEDS: NEBIVOLOL 5 MG TAB PO SCH (09:20)
[2016-06-14] MEDS: INSULIN ASPART [NOVOLOG] 3 ML PEN SC SCH ×4 (09:21→21:00)
[2016-06-14] MEDS: ENOXAPARIN 30 MG/0.3 ML SYG SC SCH (09:22)
[2016-06-14] MEDS: INSULIN GLARGINE [LANtus] 3 ML PEN SC SCH ×2 (09:22→21:16)
[2016-06-14 10:26] LABS: ALBUMIN 3.7 g/dl (3.3-4.9); BASOPHILS % 0.2 % (0.0-2.0); EOSINOPHILS # 0.1 10^3/ul (0.0-0.5); EOSINOPHILS % 1.1 % (0.0-7.0); HEMATOCRIT 36.5 % (37.0-47.0); HEMOGLOBIN 11.9 g/dl (12.0-16.0); LYMPHOCYTES # 1.1 10^3/ul (0.8-2.9); LYMPHOCYTES % 10.5 % (15.0-51.0); MEAN CORPUSCULAR HEMOGLOBIN 31.8 pg (29.0-33.0); MEAN CORPUSCULAR HGB CONC 32.5 g/dl (32.0-37.0); MEAN CORPUSCULAR VOLUME 97.6 fl (82.0-101.0); MONOCYTE # 0.9 10^3/ul (0.3-0.9); MONOCYTES % 8.7 % (0.0-11.0); NEUTROPHIL # 8.1 10^3/ul (1.6-7.5); NEUTROPHILS % 79.5 % (39.0-77.0); PLATELET COUNT 194 10^3/UL (140-440); RED BLOOD COUNT 3.74 10^6/ul (4.20-5.40); RED CELL DISTRIBUTION WIDTH 16.8 % (11.5-14.5); UNCORRECTED WBC 10.2 10^3/ul (4.8-10.8); WHITE BLOOD COUNT 10.2 10^3/ul (4.8-10.8)
[2016-06-14 10:28] LABS: CREATININE 2.14 mg/dl (0.44-1.00); MAGNESIUM 2.1 mg/dl (1.7-2.5); PHOSPHORUS 4.4 mg/dl (2.5-4.9)
[2016-06-14 10:29] LABS: ALBUMIN/GLOBULIN RATIO 1.27; BILIRUBIN,INDIRECT 0.1 mg/dl (0-1.1); BILIRUBIN,TOTAL 0.1 mg/dl (0.2-1.3); CALCIUM 8.3 mg/dl (8.4-10.2); TOTAL PROTEIN 6.6 g/dl (6.1-8.1)
[2016-06-14 10:33] LABS: CONDITION 1; LH ANALYZER COMMENTS 1
--- NOTE | 2016-06-14 11:21 | CONS ---
Date/Time of Note Date/Time of Note DATE: 06/14/16 TIME: 11:16 Consult Date/Type/Reason Admit Date/Time Jun 09, 2016 at 12:22 Initial Consult Date 06/10/16 Type of Consultation: med Ordering Provider: CRISTA HERNANDEZ DO Subjective The patient is stable. She is making urine after Flynn catheter was removed . The patient remains hypertensive with systolic pressures rising as high as 190 to 200, no other acute events noted. No hemoptysis, hematemesis, hematochezia. OBJECTIVE: HEENT: Head is normocephalic. NECK: Supple. HEART: Regular rate. LUNGS: Show diminished breath sounds at the base. ABDOMEN: Soft, nontender to palpation. No rebound or guarding. EXTREMITIES: Negative for clubbing, cyanosis. Positive edema. DERMATOLOGIC: No rashes. MUSCULOSKELETAL: No joint effusions. NEUROLOGIC: No change in exam. LOWER EXTREMITIES: The patient has chronic venous insufficiency and trace edema. MEDICATIONS: The patient's medications have been reviewed. Objective Vital Signs Date Time Temp Pulse Resp B/P Pulse Ox O2 Delivery O2 Flow Rate FiO2 06/14/16 08:35 98.1 70 18 103/82 90 06/13/16 20:40 Nasal Cannula 2.0 Intake and Output 06/13/16 06/13/16 06/14/16 15:00 23:00 07:00 Intake Total 720 ml Output Total 1000 ml Balance -280 ml Results/Medications Result Diagram: 06/14/16 1011 06/14/16 1011 Results 24 hrs Laboratory Tests Test 06/13/16 12:23 06/13/16 20:31 06/14/16 02:15 06/14/16 08:00 Bedside Glucose 261 H 249 H 198 160 Test 06/14/16 10:11 Alanine Aminotransferase (ALT/SGPT) 24 Albumin 3.7 Albumin/Globulin Ratio 1.27 Alkaline Phosphatase 70 Anion Gap 17 H Aspartate Amino Transf (AST/SGOT) 17 Basophils # 0.0 Basophils % 0.2 Blood Morphology Comment Blood Urea Nitrogen 34 H Calcium Level 8.3 L Carbon Dioxide Level 24 Chloride Level 106 Creatinine 2.14 H Direct Bilirubin 0.00 Eosinophils # 0.1 Eosinophils % 1.1 Globulin 2.90 Glucose Level 175 Hematocrit 36.5 L Hemoglobin 11.9 L Indirect Bilirubin 0.1 Lymphocytes # 1.1 Lymphocytes % 10.5 L Magnesium Level 2.1 Mean Corpuscular Hemoglobin 31.8 Mean Corpuscular Hemoglobin Concent 32.5 Mean Corpuscular Volume 97.6 Mean Platelet Volume 9.0 Monocytes # 0.9 Monocytes % 8.7 Neutrophils # 8.1 H Neutrophils % 79.5 H Nucleated Red Blood Cells # 0.0 Nucleated Red Blood Cells % 0.0 Phosphorus Level 4.4 Platelet Count 194 Potassium Level 5.0 Red Blood Count 3.74 L Red Cell Distribution Width 16.8 H Sodium Level 142 Total Bilirubin 0.1 L Total Protein 6.6 White Blood Count 10.2 # Medications Current Medications Aspirin (Halfprin) 81 mg DAILY PO Last administered on 06/14/16 09:18; Admin Dose 81 MG; Start 06/10/16 at 09:00 Gabapentin (Neurontin) 600 mg TID PO Last administered on 06/14/16 09:18; Admin Dose 600 MG; Start 06/09/16 at 21:00 Miscellaneous Medication (Bystolic) 20 mg DAILY PO Last administered on 09:20; Admin Dose 20 MG; Start 06/10/16 at 09:00 Pregabalin (Lyrica) 150 mg QHS PO Last administered on 06/13/16 20:45; Admin Dose 150 MG; Start 06/09/16 at 21:00 Valacyclovir HCl (Valtrex) 1,000 mg BID PO Last administered on 06/14/16 09:18 ; Admin Dose 1,000 MG; Start 06/09/16 at 21:00 Miscellaneous Information 1 ea NOTE XX ; Start 06/09/16 at 18:30 Glucose (Glutose) 15 gm Q15M PRN PO DECREASED GLUCOSE; Start 06/09/16 at 18:30 Glucose (Glutose) 22.5 gm Q15M PRN PO DECREASED GLUCOSE; Start 06/09/16 at 18: 30 Dextrose (D50w Syringe) 25 ml Q15M PRN IV DECREASED GLUCOSE; Start 06/09/16 at 18:30 Dextrose (D50w Syringe) 50 ml Q15M PRN IV DECREASED GLUCOSE; Start 06/09/16 at 18:30 Glucagon (Glucagen) 1 mg Q15M PRN IM DECREASED GLUCOSE; Start 06/09/16 at 18:30 Glucose (Glutose) 15 gm Q15M PRN BUCCAL DECREASED GLUCOSE; Start 06/09/16 at 18 :30 Amlodipine Besylate (Norvasc) 10 mg DAILY PO Last administered on 06/14/16 09: 19; Admin Dose 10 MG; Start 06/09/16 at 20:30 Hydromorphone HCl (Dilaudid) 0.5 mg Q4H PRN IV PAIN Last administered on 14:28; Admin Dose 0.5 MG; Start 06/10/16 at 02:30 Methyldopa (Aldomet) 500 mg BID PO Last administered on 06/14/16 09:17; Admin Dose 500 MG; Start 06/10/16 at 02:30 Pantoprazole (Protonix Tab) 40 mg DAILY@06 PO Last administered on 06/14/16 07 :15; Admin Dose 40 MG; Start 06/11/16 at 06:00 Enoxaparin Sodium (Lovenox) 30 mg DAILY SC Last administered on 06/14/16 09:22 ; Admin Dose 30 MG; Start 06/11/16 at 09:00 Clonidine (Catapres) 0.2 mg Q6H PRN PO SBP above 160 Last administered on 01:02; Admin Dose 0.2 MG; Start 06/10/16 at 12:17 Hydralazine HCl (Apresoline) 10 mg Q4H PRN IV SBP >170 Last administered on 15:03; Admin Dose 10 MG; Start 06/10/16 at 15:00 Furosemide (Lasix) 20 mg DAILY PO Last administered on 06/14/16 09:19; Admin Dose 20 MG; Start 06/11/16 at 09:00 Insulin Glargine (Lantus) 32 unit BID SC Last administered on 06/14/16 09:22; Admin Dose 32 UNIT; Start 06/11/16 at 21:00 Lorazepam (Ativan) 0.5 mg HS PO Last administered on 06/13/16 23:31; Admin Dose 0.5 MG; Start 06/11/16 at 22:00 Lisinopril (Zestril) 10 mg DAILY PO Last administered on 06/14/16 09:19; Admin Dose 10 MG; Start 06/12/16 at 09:00 Bethanechol Chloride (Urecholine) 25 mg TID PO Last administered on 06/14/16t 09:18; Admin Dose 25 MG; Start 06/13/16 at 13:00 Assessment/Plan Chief Complaint/Hosp Course 1. Nonoliguric acute kidney injury on top of chronic kidney disease with baseline creatinine 1.5 to 2 mg/dL. Etiology of acute kidney injury is multifactorial, secondary to hemodynamics from urinary retention. Renal function appears to be stabilizing. Will start the patient on lisinopril 10 mg daily as the patient has proteinuria on protein/creatinine ratio. We will monitor renal function closely. Continue supportive care. 3. Urinary retention. Etiology may be secondary to neurogenic bladder. The patient's Flynn catheter was removed. Continue to monitor closely. Follow up with urology. 4. Right ovarian cystic mass, etiology is unclear. Questionable malignancy. The patient is being followed by Dr. Suarez, an MRI is pending. Would defer any contrast given the patient's underlying chronic kidney disease. Await cards clearance. 5. Acute decompensated diastolic heart failure. The patient is clinically improving. Continue current medical management. Follow up with cardiology. 6. Hypertension. Blood pressure improved on low-dose PATIENCE inhibitor. If renal function remains stable, we will up titrate. Will otherwise continue other blood pressure medicines. 7. Anemia. Continue to monitor hemoglobin and hematocrit levels. Will give Epogen as needed. 8. Diabetes. Continue current insulin regimen. 9. History of coronary artery disease, status post coronary artery bypass graft. Continue current medical management. 10. Chronic kidney disease stage IV. Etiology is multifactorial secondary to diabetes, hypertension. The patient is currently in acute kidney injury as stated above. Will continue disease-factor modifications. 11. Morbid obesity. Continue dietary modification. 12. Dyslipidemia. Continue statin therapy. 13. History of sleep apnea. Continue to monitor. 14. Peripheral vascular disease. Continue current treatment plan. 15. Neuropathy. Continue Lyrica. 16. Debility. Continue PT, OT. 17. Gastrointestinal and deep venous thrombosis prophylaxis. Continue proton pump inhibitor, sequential leg squeezers, Lovenox. Problems: BRITTANEY GIFFORD MD Jun 14, 2016 11:21
[2016-06-14 12:00] VITALS: BP 112/72; PULSE 72; RESP 18
--- NOTE | 2016-06-14 12:47 | CONS ---
Date/Time of Note Date/Time of Note DATE: 06/14/16 TIME: 12:46 Assessment/Plan Assessment/Plan Chief Complaint/Hosp Course 1. A right ovarian cystic mass. Etiology is unclear, concerning for possible malignancy. ca 125-n AMENDMENT to CT AP 06/12/2016 2:01:08 PM Ethan Villanueva MD Comparison is made with prior CT scan of the abdomen and pelvis dated 11/23/2009. The large right adnexal mass measures 6.7 x 8.8 x 7.4 cm on the current study and measured 3.7 x 4.6 x 4.8 cm on 11/23/2009. MRI PELVIS- Large complex cystic right ovarian mass which in a postmenopausal female is worrisome for an ovarian cystic neoplasm. Multiple uterine masses consistent with a leiomyomatous uterus. SEEN BY GYNEONC-will observe urologic response to medication and surgery definitely an option but requires clearance. Would approach laparoscopic and can do LSH/BSO with minilap and stage if needed. D/W PT AND FAMILY- D/W PT AND FAMILY , NEEDS CARDIAC AND PULM CLEARANCE 2. Anemia. Continue to monitor hemoglobin and hematocrit levels. + component ACD OBSERVE FOR BLEEDING AND HEMOLYSIS 3. Nonoliguric acute kidney injury on top of chronic kidney disease with a previous baseline renal function around 1.5 to 2 mg/dL. Etiology of acute kidney injury is possibly secondary to urinary retention, obstructive uropathy versus hemodynamics, possible cardiorenal syndrome. The patient's urinalysis shows findings of proteinuria but no pyuria, no hematuria, and a CT scan of the abdomen and pelvis showed no evidence of hydronephrosis. Plan at this point is to check a renal ultrasound. Will repeat UA with microanalysis. Will check urine electrolytes. Will continue supportive care, renally dose medications, avoid nephrotoxins, monitor renal function closely. Clinical albuminuria - PER NEPHROLOGY 4 Urinary retention. Underlying etiology is unclear. The patient is status post Flynn catheter placement with good urinary output. Seen by urology still unable to urinate on intermittent catheterizations URECHOLINE - DOSE INCREASED 5. Acute decompensated diastolic heart failure. The patient noted to have pulmonary congestion, lower extremity edema. The patient is status post Lasix; will continue- PER NEPHRO cardiology F-UP 6. History of coronary artery disease, status post coronary artery bypass graft. Continue current medical management. 7. Diabetes. Will continue Accu-Cheks, insulin sliding scale, continue Lantus. HB A1C- 8.1 8. Chronic kidney disease stage IIIB/IV. Etiology is multifactorial secondary to diabetes, hypertension. The patient is currently in acute kidney injury as stated above. Continue medical management. 9. Morbid obesity. Continue dietary modification. 10. Dyslipidemia. Continue statin therapy. 11. Obstructive sleep apnea. Continue supplemental oxygen. Consider a pulmonary consult for evaluation. 12. Hypertension- POORLY CONTROLLED Continue current blood pressure regimen. Will adjust medications as needed. CARDIOLOGY F-UP 13. History of peripheral vascular disease. Continue current medical management. 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 SEVERE DJD/OA WITH CHRONIC PAIN 16. GI PROBLEMS- WITH ABD PAIN, DIARRHEA/ ALTERNATING WITH CONSTIPATION GI EVAL AND F-UP Problems: Consultation Date/Type/Reason Admit Date/Time Jun 09, 2016 at 12:22 Initial Consult Date 06/09/16 Type of Consultation: [facility] Referring Provider: CRISTA HERNANDEZ DO 24 HR Interval Summary Free Text/Dictation ALL NOTED D/W PT AND FAMILY NEEDS CARDIAC AND PULM CLEARANCE Exam/Review of Systems Vital Signs Vitals Vital Signs Date Time Temp Pulse Resp B/P Pulse Ox O2 Delivery O2 Flow Rate FiO2 06/14/16 08:35 98.1 70 18 103/82 90 06/13/16 20:40 Nasal Cannula 2.0 Intake and Output 06/13/16 06/13/16 06/14/16 15:00 23:00 07:00 Intake Total 720 ml Output Total 1000 ml Balance -280 ml Exam Constitutional: alert, oriented Psych: no complaints Head: normocephalic Neck: No jvd Respiratory: clear to auscultation, diminished breath sounds Cardiovascular: regular rate and rhythm, No edema Gastrointestinal: soft Neurological: nl mental status, nl speech Results Result Diagram: 06/14/16 1011 06/14/16 1011 Results 24 hrs Laboratory Tests Test 06/13/16 20:31 06/14/16 02:15 06/14/16 08:00 06/14/16 10:11 Bedside Glucose 249 H 198 160 Alanine Aminotransferase (ALT/SGPT) 24 Albumin 3.7 Albumin/Globulin Ratio 1.27 Alkaline Phosphatase 70 Anion Gap 17 H Aspartate Amino Transf (AST/SGOT) 17 Basophils # 0.0 Basophils % 0.2 Blood Morphology Comment Blood Urea Nitrogen 34 H Calcium Level 8.3 L Carbon Dioxide Level 24 Chloride Level 106 Creatinine 2.14 H Direct Bilirubin 0.00 Eosinophils # 0.1 Eosinophils % 1.1 Globulin 2.90 Glucose Level 175 Hematocrit 36.5 L Hemoglobin 11.9 L Indirect Bilirubin 0.1 Lymphocytes # 1.1 Lymphocytes % 10.5 L Magnesium Level 2.1 Mean Corpuscular Hemoglobin 31.8 Mean Corpuscular Hemoglobin Concent 32.5 Mean Corpuscular Volume 97.6 Mean Platelet Volume 9.0 Monocytes # 0.9 Monocytes % 8.7 Neutrophils # 8.1 H Neutrophils % 79.5 H Nucleated Red Blood Cells # 0.0 Nucleated Red Blood Cells % 0.0 Phosphorus Level 4.4 Platelet Count 194 Potassium Level 5.0 Red Blood Count 3.74 L Red Cell Distribution Width 16.8 H Sodium Level 142 Total Bilirubin 0.1 L Total Protein 6.6 White Blood Count 10.2 # Test 06/14/16 12:12 Bedside Glucose 269 H Medications Medications Current Medications Aspirin (Halfprin) 81 mg DAILY PO Last administered on 06/14/16 09:18; Admin Dose 81 MG; Start 06/10/16 at 09:00 Gabapentin (Neurontin) 600 mg TID PO Last administered on 06/14/16 09:18; Admin Dose 600 MG; Start 06/09/16 at 21:00 Miscellaneous Medication (Bystolic) 20 mg DAILY PO Last administered on 09:20; Admin Dose 20 MG; Start 06/10/16 at 09:00 Pregabalin (Lyrica) 150 mg QHS PO Last administered on 06/13/16 20:45; Admin Dose 150 MG; Start 06/09/16 at 21:00 Valacyclovir HCl (Valtrex) 1,000 mg BID PO Last administered on 06/14/16 09:18 ; Admin Dose 1,000 MG; Start 06/09/16 at 21:00 Miscellaneous Information 1 ea NOTE XX ; Start 06/09/16 at 18:30 Glucose (Glutose) 15 gm Q15M PRN PO DECREASED GLUCOSE; Start 06/09/16 at 18:30 Glucose (Glutose) 22.5 gm Q15M PRN PO DECREASED GLUCOSE; Start 06/09/16 at 18: 30 Dextrose (D50w Syringe) 25 ml Q15M PRN IV DECREASED GLUCOSE; Start 06/09/16 at 18:30 Dextrose (D50w Syringe) 50 ml Q15M PRN IV DECREASED GLUCOSE; Start 06/09/16 at 18:30 Glucagon (Glucagen) 1 mg Q15M PRN IM DECREASED GLUCOSE; Start 06/09/16 at 18:30 Glucose (Glutose) 15 gm Q15M PRN BUCCAL DECREASED GLUCOSE; Start 06/09/16 at 18 :30 Amlodipine Besylate (Norvasc) 10 mg DAILY PO Last administered on 06/14/16 09: 19; Admin Dose 10 MG; Start 06/09/16 at 20:30 Hydromorphone HCl (Dilaudid) 0.5 mg Q4H PRN IV PAIN Last administered on 14:28; Admin Dose 0.5 MG; Start 06/10/16 at 02:30 Methyldopa (Aldomet) 500 mg BID PO Last administered on 06/14/16 09:17; Admin Dose 500 MG; Start 06/10/16 at 02:30 Pantoprazole (Protonix Tab) 40 mg DAILY@06 PO Last administered on 06/14/16 07 :15; Admin Dose 40 MG; Start 06/11/16 at 06:00 Enoxaparin Sodium (Lovenox) 30 mg DAILY SC Last administered on 06/14/16 09:22 ; Admin Dose 30 MG; Start 06/11/16 at 09:00 Clonidine (Catapres) 0.2 mg Q6H PRN PO SBP above 160 Last administered on 01:02; Admin Dose 0.2 MG; Start 06/10/16 at 12:17 Hydralazine HCl (Apresoline) 10 mg Q4H PRN IV SBP >170 Last administered on 15:03; Admin Dose 10 MG; Start 06/10/16 at 15:00 Furosemide (Lasix) 20 mg DAILY PO Last administered on 06/14/16 09:19; Admin Dose 20 MG; Start 06/11/16 at 09:00 Insulin Glargine (Lantus) 32 unit BID SC Last administered on 06/14/16 09:22; Admin Dose 32 UNIT; Start 06/11/16 at 21:00 Lorazepam (Ativan) 0.5 mg HS PO Last administered on 06/13/16 23:31; Admin Dose 0.5 MG; Start 06/11/16 at 22:00 Lisinopril (Zestril) 10 mg DAILY PO Last administered on 06/14/16 09:19; Admin Dose 10 MG; Start 06/12/16 at 09:00 Bethanechol Chloride (Urecholine) 25 mg TID PO Last administered on 06/14/16 09:18; Admin Dose 25 MG; Start 06/13/16 at 13:00 SHARLA SOUSA MD Jun 14, 2016 12:47
--- NOTE | 2016-06-14 13:51 | PN ---
DATE: 06/14/2016 SUBJECTIVE: Urinary retention. HISTORY OF PRESENT ILLNESS: Patient is being monitored for volume voided and the postvoid residual. Patient herself states that she is feeling better, and she is urinating better. She has been urin ating in the bathroom in the hat, and that is full. It has about 800 mL in it. However, the postvo id residual with a bladder scan has not been done. OBJECTIVE FINDINGS: VITAL SIGNS: Temperature is 98.1, pulse is 70, respiration 18, blood pressure 103/82. LABORATORY DATA: CBC shows a white count of 10.2, hemoglobin 11.9, hematocrit 36.5. BUN is 34, cre atinine 2.14, sodium 142, potassium 5.0, chloride 106, CO2 is 24. Urine culture no growth in 48 lilibeth rs. IMPRESSION: Urinary retention that seems to be responding to the urecholine as the patient is voidi ng; however, the staff has not done the postvoid residual with the bladder scan as ordered. Therefo re, it is difficult to see how well she is voiding. I have talked to her daughter on the phone. He r daughter is a nurse. I explained to her the urological issue, and the patient herself is comforta ble at the present and stating that she is voiding well. PLAN: To continue the urecholine 25 mg 3 times a day and check the volume of each voiding and the p ostvoid residual. Dictated By: GUANACO CURRAN/BIRGIT Conf#: [id number] DID#: [id number]
[2016-06-14 16:00] VITALS: BP 123/76; PULSE 74; RESP 18
--- NOTE | 2016-06-14 18:02 | CONS ---
DATE OF ADMISSION: 06/09/2016 DATE OF CONSULTATION: CHIEF COMPLAINT: The patient has nonspecific abnormal abdominal complaints and there is evidence of alternating constipation and diarrhea. CAT scan of the abdomen shows evidence of a thickening of t he ascending colon. Also, the workup shows so far there is evidence of an enlarging mass in the right ovary and oncology parts finisher is on the case. Surgery is the planned at this time. Because of the abnormal ascendi ng colon, one should consider the possibility that she needs a colonoscopy to rule out any additiona l colorectal neoplasm. PLAN: This should be performed after discussion with Dr. Sousa. Dictated By: JOSE ELIAS TATUM MD NC/NTS Conf#: [id number] DID#: [id number] CC: SHARLA SOUSA MD;*EndCC*
[2016-06-14 19:22] VITALS: BP 143/68; RESP 18
--- NOTE | 2016-06-14 19:44 | CONS ---
DATE OF ADMISSION: 06/09/2016 DATE OF CONSULTATION: 06/14/2016 TYPE OF CONSULTATION: Pulmonary. PRIMARY PHYSICIAN: Sharla Suarez MD. REASON FOR CONSULTATION: Preop clearance. HISTORY OF PRESENT ILLNESS: Briefly, this is a 60-year-old female with numerous medical problems in cluding history of diabetes, hypertension, coronary artery disease status post CABG, chronic kidney disease, renal artery stenosis, status post stent placement, morbid obesity, hyperlipidemia who was admitted 5 days prior to [facility] after some problems with urination. CT of the abdomen showed a 6 x 7 cm ovarian mass with calcified fibroid uterus. This was followed by a pelvic ultrasound that showed a cystic lesion of the right ovary, concerning for malignancy. The p atient endorses no history of lung disease per se; however, based on the history provided, she has s igns and symptoms consistent with sleep apnea, including nocturnal witnessed apneas and loud snoring . PAST MEDICAL HISTORY: As noted above. PAST SURGICAL HISTORY: CABG and renal stent placement. SOCIAL HISTORY: No tobacco, alcohol or illicit drug use. MEDICATIONS: Please see MAR. ALLERGIES: NONE. FAMILY HISTORY: Noncontributory. REVIEW OF SYSTEMS: As noted in the HPI. PHYSICAL EXAMINATION: VITAL SIGNS: Heart rate is 90, blood pressure 103/82, oxygen saturations 96% on 2 liters. GENERAL: An obese female sitting in no acute distress. HEENT: Oropharynx is very crowded. NECK: Supple, no thyromegaly, no jugular venous distention. CARDIOVASCULAR: Regular rate and rhythm, S1 and S2. LUNGS: Clear to auscultation bilaterally. ABDOMEN: Obese, nontender, no hepatosplenomegaly. EXTREMITIES: No cyanosis, clubbing or edema. LABORATORY DATA: WBC is 10.2, hemoglobin is 11.9, BUN is 37, creatinine is 2.2. MRI of the pelvis shows a large complex cystic ovarian mass. CT abdomen shows evidence of large ventral herniation, r ight large adnexal mass measuring 6.7 x 8.8 x 7.4, mild basilar atelectasis is also noted. IMPRESSION: Large right-sided ovarian cystic mass, etiology concerning for malignancy. The patient has been evaluated for possible laparoscopic intervention with possible laparoscopic supracervical hysterectomy, bilateral salpingo-oophorectomy with mini lap. Ms. Ramos's main surgical respirato ry related surgical risk factor is clearly her definite obstructive sleep apnea, which can be a comp licating factor with administration of general anesthesia. It is essential for her to be monitored closely in the immediate postoperative period and to be placed on noninvasive positive pressure vent ilation via CPAP or BiPAP immediately post-anesthesia. CPAP should be employed postoperatively desp ite not knowing what pressures. I would empirically use at least a CPAP setting of 12 cm of water p ostoperatively. Additionally, Ms. Ramos should have appropriate cardiac risk stratification and clearance prior to surgery given her extensive history of coronary artery disease. Dictated By: TERESE KAYE MD NK/NTS Conf#: [id number] DID#: [id number] CC: SHARLA SUAREZ MD; DAJUAN SHARMA MD;*[facility]*
--- NOTE | 2016-06-14 19:59 | PN ---
Date/Time of Note Date/Time of Note DATE: 06/14/16 TIME: 19:56 Assessment/Plan VTE Prophylaxis VTE Prophylaxis Intervention: LMWH Lines/Catheters IV Catheter Type (from Nrs): Peripheral IV Urinary Cath still in place: No Assessment/Plan Chief Complaint/Hosp Course Pelvic mass, multiple medical issues, urinary frequency Problems: Assessment/Plan A/P- Reiterated need and that general and regional anesthesia combined. Subjective 24 Hr Interval Summary Free Text/Dictation S- Feels somewhat better but ongoing pain, only concern about surgery is intubation O- Resp- clear CVS- NSR Abd- unchanged Ext NT mod edema A/P- Reiterated need and that general and regional anesthesia combined. Exam/Review of Systems Vital Signs Vitals Vital Signs Date Time Temp Pulse Resp B/P Pulse Ox O2 Delivery O2 Flow Rate FiO2 06/14/16 19:22 98.4 71 18 143/68 94 06/14/16 08:00 Nasal Cannula 2.0 Intake and Output 06/13/16 06/13/16 06/14/16 15:00 23:00 07:00 Intake Total 720 ml Output Total 1000 ml Balance -280 ml Results Result Diagram: 06/14/16 1011 06/14/16 1011 Results 24 hrs Laboratory Tests Test 06/13/16 20:31 06/14/16 02:15 06/14/16 08:00 06/14/16 10:11 Bedside Glucose 249 H 198 160 Alanine Aminotransferase (ALT/SGPT) 24 Albumin 3.7 Albumin/Globulin Ratio 1.27 Alkaline Phosphatase 70 Anion Gap 17 H Aspartate Amino Transf (AST/SGOT) 17 Basophils # 0.0 Basophils % 0.2 Blood Morphology Comment Blood Urea Nitrogen 34 H Calcium Level 8.3 L Carbon Dioxide Level 24 Chloride Level 106 Creatinine 2.14 H Direct Bilirubin 0.00 Eosinophils # 0.1 Eosinophils % 1.1 Globulin 2.90 Glucose Level 175 Hematocrit 36.5 L Hemoglobin 11.9 L Indirect Bilirubin 0.1 Lymphocytes # 1.1 Lymphocytes % 10.5 L Magnesium Level 2.1 Mean Corpuscular Hemoglobin 31.8 Mean Corpuscular Hemoglobin Concent 32.5 Mean Corpuscular Volume 97.6 Mean Platelet Volume 9.0 Monocytes # 0.9 Monocytes % 8.7 Neutrophils # 8.1 H Neutrophils % 79.5 H Nucleated Red Blood Cells # 0.0 Nucleated Red Blood Cells % 0.0 Phosphorus Level 4.4 Platelet Count 194 Potassium Level 5.0 Red Blood Count 3.74 L Red Cell Distribution Width 16.8 H Sodium Level 142 Total Bilirubin 0.1 L Total Protein 6.6 White Blood Count 10.2 # Test 06/14/16 12:12 06/14/16 17:04 Bedside Glucose 269 H 189 Medications Medications Current Medications Aspirin (Halfprin) 81 mg DAILY PO Last administered on 06/14/16 09:18; Admin Dose 81 MG; Start 06/10/16 at 09:00 Gabapentin (Neurontin) 600 mg TID PO Last administered on 06/14/16 13:17; Admin Dose 600 MG; Start 06/09/16 at 21:00 Miscellaneous Medication (Bystolic) 20 mg DAILY PO Last administered on 09:20; Admin Dose 20 MG; Start 06/10/16 at 09:00 Pregabalin (Lyrica) 150 mg QHS PO Last administered on 06/13/16 20:45; Admin Dose 150 MG; Start 06/09/16 at 21:00 Valacyclovir HCl (Valtrex) 1,000 mg BID PO Last administered on 06/14/16 09:18 ; Admin Dose 1,000 MG; Start 06/09/16 at 21:00 Miscellaneous Information 1 ea NOTE XX ; Start 06/09/16 at 18:30 Glucose (Glutose) 15 gm Q15M PRN PO DECREASED GLUCOSE; Start 06/09/16 at 18:30 Glucose (Glutose) 22.5 gm Q15M PRN PO DECREASED GLUCOSE; Start 06/09/16 at 18: 30 Dextrose (D50w Syringe) 25 ml Q15M PRN IV DECREASED GLUCOSE; Start 06/09/16 at 18:30 Dextrose (D50w Syringe) 50 ml Q15M PRN IV DECREASED GLUCOSE; Start 06/09/16 at 18:30 Glucagon (Glucagen) 1 mg Q15M PRN IM DECREASED GLUCOSE; Start 06/09/16 at 18:30 Glucose (Glutose) 15 gm Q15M PRN BUCCAL DECREASED GLUCOSE; Start 06/09/16 at 18 :30 Amlodipine Besylate (Norvasc) 10 mg DAILY PO Last administered on 06/14/16 09: 19; Admin Dose 10 MG; Start 06/09/16 at 20:30 Hydromorphone HCl (Dilaudid) 0.5 mg Q4H PRN IV PAIN Last administered on 14:28; Admin Dose 0.5 MG; Start 06/10/16 at 02:30 Methyldopa (Aldomet) 500 mg BID PO Last administered on 06/14/16 09:17; Admin Dose 500 MG; Start 06/10/16 at 02:30 Pantoprazole (Protonix Tab) 40 mg DAILY@06 PO Last administered on 06/14/16 07 :15; Admin Dose 40 MG; Start 06/11/16 at 06:00 Enoxaparin Sodium (Lovenox) 30 mg DAILY SC Last administered on 06/14/16 09:22 ; Admin Dose 30 MG; Start 06/11/16 at 09:00 Clonidine (Catapres) 0.2 mg Q6H PRN PO SBP above 160 Last administered on 01:02; Admin Dose 0.2 MG; Start 06/10/16 at 12:17 Hydralazine HCl (Apresoline) 10 mg Q4H PRN IV SBP >170 Last administered on 15:03; Admin Dose 10 MG; Start 06/10/16 at 15:00 Furosemide (Lasix) 20 mg DAILY PO Last administered on 06/14/16 09:19; Admin Dose 20 MG; Start 06/11/16 at 09:00 Insulin Glargine (Lantus) 32 unit BID SC Last administered on 06/14/16 09:22; Admin Dose 32 UNIT; Start 06/11/16 at 21:00 Lorazepam (Ativan) 0.5 mg HS PO Last administered on 06/13/16 23:31; Admin Dose 0.5 MG; Start 06/11/16 at 22:00 Lisinopril (Zestril) 10 mg DAILY PO Last administered on 06/14/16 09:19; Admin Dose 10 MG; Start 06/12/16 at 09:00 Bethanechol Chloride (Urecholine) 25 mg TID PO Last administered on 06/14/16 13:17; Admin Dose 25 MG; Start 06/13/16 at 13:00 HARRIS AVELAR MD Jun 14, 2016 19:59
[2016-06-14] MEDS: PREGABALIN 75 MG CAP PO SCH (20:47)
[2016-06-14 23:30] VITALS: BP 138/80; PULSE 80; RESP 22
[2016-06-15] VITALS (7 sets, daily range): BP systolic 120–180; BP diastolic 60–88; PULSE 65–81; RESP 18–22
[2016-06-15] MEDS: LORAZEPAM 0.5 MG TAB PO SCH (00:15)
[2016-06-15] MEDS: hydrALAzine 20 MG INJ IV PRN (00:24)
[2016-06-15] MEDS: HYDROmorphONE 1 MG/ML SYG IV PRN (01:32)
[2016-06-15] MEDS: INSULIN ASPART [NOVOLOG] 3 ML PEN SC SCH ×5 (01:46→21:29)
[2016-06-15] MEDS: PANTOPRAZOLE (EC) 40 MG TAB PO SCH ×2 (06:00→06:32)
[2016-06-15] MEDS: VALACYCLOVIR 500 MG TAB PO SCH ×2 (09:34→20:56)
[2016-06-15] MEDS: FUROSEMIDE 20 MG TAB PO SCH (09:35)
[2016-06-15] MEDS: BETHANECHOL 25 MG TAB PO SCH ×3 (09:35→20:56)
[2016-06-15] MEDS: METHYLDOPA 500 MG TAB PO SCH ×2 (09:35→20:56)
[2016-06-15] MEDS: GABAPENTIN 300 MG CAP PO SCH ×3 (09:35→20:56)
[2016-06-15] MEDS: ASPIRIN (EC) 81 MG TAB PO SCH (09:35)
[2016-06-15] MEDS: NEBIVOLOL 5 MG TAB PO SCH (09:36)
[2016-06-15] MEDS: LISINOPRIL 10 MG TAB PO SCH (09:36)
[2016-06-15] MEDS: AMLODIPINE 10 MG TAB PO SCH (09:36)
[2016-06-15] MEDS: ENOXAPARIN 30 MG/0.3 ML SYG SC SCH (09:38)
[2016-06-15] MEDS: INSULIN GLARGINE [LANtus] 3 ML PEN SC SCH (09:40)
--- NOTE | 2016-06-15 10:39 | CONS ---
Date/Time of Note Date/Time of Note DATE: 06/15/16 TIME: 10:33 Assessment/Plan Assessment/Plan Additional Assessment/Plan Assessment and recommendations; next 1. Patient admitted with acute urinary retention underwent abdominal imaging studies with revision of right ovarian mass which is suspicious for malignancy. 2. Multiple other comorbidities including likely underlying severe sleep apnea. Congestive heart failure. History of coronary artery disease. Renal insufficiency. Continue current treatment for now obtain a blood gas on 2 L nasal cannula. Patient apparently has been scheduled for ovarian surgery under epidural anesthesia. However because of underlying compromised respiratory status the patient likely may need to be intubated. And will likely will be unable to be extubated immediately postop. However the risk of not performing surgery clearly outweighs the risk of intubation. I am going to order an ABG that will definitely help us in assessing her operative risk. Meanwhile cartilage consult is pending. Consultation Date/Type/Reason Admit Date/Time Jun 09, 2016 at 12:22 Initial Consult Date 06/10/16 Type of Consultation: Pulmonary Referring Provider: CRISTA HERNANDEZ DO 24 HR Interval Summary Free Text/Dictation Patient condition is stable. Complains of scant cough which is mostly at night. Does complain of chronic shortness of breath upon minimal exertion. Denies any abdominal pain, nausea, vomiting, fever chills. General examination; elderly lady, appears quite overweight currently in no distress. Awake and alert. Exam/Review of Systems Vital Signs Vitals Vital Signs Date Time Temp Pulse Resp B/P Pulse Ox O2 Delivery O2 Flow Rate FiO2 06/15/16 04:53 80 22 143/67 96 Mechanical Ventilator 2.0 Nasal Cannula 06/15/16 01:50 98.5 Intake and Output 06/14/16 06/14/16 06/15/16 15:00 23:00 07:00 Intake Total 1600 ml 300 ml Output Total 2900 ml 350 ml Balance -1300 ml -50 ml Exam H EENT examination; supple neck, JVD difficult to see because of short neck. Pharynx is clear. Pharyngeal aperture is crowded. Patient does have most multiple missing teeth. Pupils are midsize and reactive to light. Chest examination; diminished but clear breath sounds. No added sounds. S1-S2 audible, no murmurs. There is a well-healed sternal scar present. Abdomen examination; protuberant, nontender. Bowel sounds audible. Extremity examination; no peripheral edema. [employer]IT [employer] WORK[employer] examination; no focal deficit. Results Result Diagram: 06/14/16 1011 06/14/16 1011 Results 24 hrs Laboratory Tests Test 06/14/16 12:12 06/14/16 17:04 06/14/16 20:45 06/15/16 01:38 Bedside Glucose 269 H 189 209 294 H Test 06/15/16 08:32 Bedside Glucose 154 Medications Medications Current Medications Aspirin (Halfprin) 81 mg DAILY PO Last administered on 06/15/16 09:35; Admin Dose 81 MG; Start 06/10/16 at 09:00 Gabapentin (Neurontin) 600 mg TID PO Last administered on 06/15/16 09:35; Admin Dose 600 MG; Start 06/09/16 at 21:00 Miscellaneous Medication (Bystolic) 20 mg DAILY PO Last administered on 09:36; Admin Dose 20 MG; Start 06/10/16 at 09:00 Pregabalin (Lyrica) 150 mg QHS PO Last administered on 06/14/16 20:47; Admin Dose 150 MG; Start 06/09/16 at 21:00 Valacyclovir HCl (Valtrex) 1,000 mg BID PO Last administered on 06/15/16 09:34 ; Admin Dose 1,000 MG; Start 06/09/16 at 21:00 Miscellaneous Information 1 ea NOTE XX ; Start 06/09/16 at 18:30 Glucose (Glutose) 15 gm Q15M PRN PO DECREASED GLUCOSE; Start 06/09/16 at 18:30 Glucose (Glutose) 22.5 gm Q15M PRN PO DECREASED GLUCOSE; Start 06/09/16 at 18: 30 Dextrose (D50w Syringe) 25 ml Q15M PRN IV DECREASED GLUCOSE; Start 06/09/16 at 18:30 Dextrose (D50w Syringe) 50 ml Q15M PRN IV DECREASED GLUCOSE; Start 06/09/16 at 18:30 Glucagon (Glucagen) 1 mg Q15M PRN IM DECREASED GLUCOSE; Start 06/09/16 at 18:30 Glucose (Glutose) 15 gm Q15M PRN BUCCAL DECREASED GLUCOSE; Start 06/09/16 at 18 :30 Amlodipine Besylate (Norvasc) 10 mg DAILY PO Last administered on 06/15/16 09: 36; Admin Dose 10 MG; Start 06/09/16 at 20:30 Hydromorphone HCl (Dilaudid) 0.5 mg Q4H PRN IV PAIN Last administered on 01:32; Admin Dose 0.5 MG; Start 06/10/16 at 02:30 Methyldopa (Aldomet) 500 mg BID PO Last administered on 06/15/16 09:35; Admin Dose 500 MG; Start 06/10/16 at 02:30 Pantoprazole (Protonix Tab) 40 mg DAILY@06 PO Last administered on 06/14/16 07 :15; Admin Dose 40 MG; Start 06/11/16 at 06:00 Enoxaparin Sodium (Lovenox) 30 mg DAILY SC Last administered on 06/15/16 09:38 ; Admin Dose 30 MG; Start 06/11/16 at 09:00 Clonidine (Catapres) 0.2 mg Q6H PRN PO SBP above 160 Last administered on 00:49; Admin Dose 0.2 MG; Start 06/10/16 at 12:17 Hydralazine HCl (Apresoline) 10 mg Q4H PRN IV SBP >170 Last administered on 00:24; Admin Dose 10 MG; Start 06/10/16 at 15:00 Furosemide (Lasix) 20 mg DAILY PO Last administered on 06/15/16 09:35; Admin Dose 20 MG; Start 06/11/16 at 09:00 Insulin Glargine (Lantus) 32 unit BID SC Last administered on 06/15/16 09:40; Admin Dose 32 UNIT; Start 06/11/16 at 21:00 Lorazepam (Ativan) 0.5 mg HS PO Last administered on 06/15/16 00:15; Admin Dose 0.5 MG; Start 06/11/16 at 22:00 Lisinopril (Zestril) 10 mg DAILY PO Last administered on 06/15/16 09:36; Admin Dose 10 MG; Start 06/12/16 at 09:00 Bethanechol Chloride (Urecholine) 25 mg TID PO Last administered on 06/15/16 09:35; Admin Dose 25 MG; Start 06/13/16 at 13:00 JAYME POP 20, 2017 10:38
--- NOTE | 2016-06-15 10:47 | PN ---
DATE: 06/15/2016 SUBJECTIVE: Urinary retention and patient has a pelvic mass and right ovarian mass. The patient fe eling better and she is voiding better now. She is on urecholine 25 mg 3 times a day. OBJECTIVE: VITAL SIGNS: She is afebrile. Temperature is 98.5, pulse is 80, respiration 22, blood pressure 143/6 7. The patient is voiding well and the postvoid residual is minimal. It has been measured about 75 mL one time, 11 mL another time and according to the staff, she is voiding 400 to 500 mL each time. IMPRESSION: Urinary retention that has responded to use of urecholine. PLAN: To discontinue bladder scan and continue taking the urecholine 25 mg 3 times a day. Dictated By: GUANACO CURRAN/BIRGIT Conf#: [id number] DID#: [id number]
--- NOTE | 2016-06-15 11:18 | PN ---
DATE: 06/15/2016 SUBJECTIVE: The patient is stable. The patient has been noncompliant. The patient has been evalua vladimir by Dr. Hunt for possible surgery. No other acute events noted. No hemoptysis, hematemesis or hematochezia. OBJECTIVE: VITAL SIGNS: Blood pressure 143/67, respiration 22, pulse 80, temperature 98.5. HEENT: Head is normocephalic. NECK: Supple. HEART: Regular rate. LUNGS: Show diminished breath sounds at the base. ABDOMEN: Obese, soft, nontender to palpation. No rebound or guarding. EXTREMITIES: Negative for clubbing, cyanosis. No edema. DERMATOLOGIC: No rashes. MUSCULOSKELETAL: No joint effusions. NEUROLOGIC: No change in exam. LOWER EXTREMITIES: The patient has venous insufficiency and trace edema is noted. ASSESSMENT AND PLAN: 1. Nonoliguric acute kidney injury on top of chronic kidney disease with a baseline creatinine of 1 .4 to 1.5 mg/dL. Etiology of acute kidney injury is multifactorial. Etiology of WILFREDO is multifactor ial secondary to urinary retention, hemodynamics. The patient's renal function is stabilizing. We w ill monitor renal function closely as patient was introduced on lisinopril. Continue supportive car e, renally dose all meds, avoid nephrotoxins. 2. Urinary retention, improved. The patient was seen by Dr. Briceno. Currently able to void. We will continue to monitor. 3. Right ovarian cystic mass concerning for possible neoplasm. The patient was seen by Dr. Collin estrada pending possible surgery. We will continue to monitor. We will follow up recommendations. 4. Acute decompensated diastolic heart failure. The patient clinically improving. Continue low-do se diuretic therapy. 5. Anemia. Continue to monitor hemoglobin and hematocrit levels. We will defer Epogen at this odilia e in the setting of possible neoplasm. 6. Diabetes. Continue current insulin regimen. 7. History of coronary artery disease, status post coronary artery bypass graft. Continue medical management. 8. Chronic kidney disease stage IV. Etiology is multifactorial secondary to diabetes, hypertension . The patient is currently in acute kidney injury as stated above. Continue disease factor modific ation. 9. Morbid obesity. Continue dietary modification. 10. Dyslipidemia. Continue statin therapy. 11. History of sleep apnea. Continue to monitor. 12. Peripheral vascular disease. Continue current treatment plan. 13. Neuropathy. Continue Lyrica. 14. Debility. Continue PT, OT. 15. Gastrointestinal and deep venous thrombosis prophylaxis. Continue proton pump inhibitor and se quential leg squeezers and Lovenox. Dictated By: CRISTA GAINES/BIRGIT Conf#: [id number] DID#: [id number]
[2016-06-15 11:36] LABS: AADO2 Arterial 46.6 mmHg (7.0-24.0); Allen Test ACCEPTAB; Arterial COHb 0.3 % (0.0-3.0); Arterial Fraction of Oxyhgb 88.1 % (93.0-99.0); Arterial HCO3 21.9 mmol/L (22.0-26.0); Arterial MetHb 0.1 % (0.0-1.5); Arterial Total Hemglobin 12.7 g/dl (12.0-18.0); MODE ROOM AIR
[2016-06-15] MEDS: ALBUTEROL/IPRATROPIUM (NEB) 3 ML AMP HHN SCH ×2 (13:17→20:00)
--- NOTE | 2016-06-15 13:41 | RADRPT ---
Echocardiogram Report Patient Name: MACARIO HERNANDEZ Gender: Female Date: 1955 Study Date: 15-Jun-2016 [employer]her [employer] Binder Operator: Artie Sun [facility] Location: [id number] Ref. Physician: LOLI MCCARTNEY Quality: Adequate Procedures: Transthoracic echocardiogram with complete 2D, M-Mode, and doppler examination. Indications: Pre-op. 2D/M Mode Doppler Measurement Value Normal Ranges Measurement Value Normal Ranges LVIDd 2D 5.5 3.5 - 5.6 cm AV Mean Yeyo 1.5 m/sec LVIDs 2D 3.3 2.1 - 4.1 cm AV Mean PG 11.0 mmHg LVPWd 2D 1.1 0.6 - 1.1 cm AV Peak Yeyo 2.3 m/sec IVSd 2D 1.1 0.6 - 1.1 cm AV Peak PG 21.1 mmHg AoR Diam 2D 2.7 2.0 - 3.7 cm AV VTI 56.4 cm EDV 2D 145.1 cm3 LVOT Mean Yeyo 1.1 m/sec ESV 2D 35.5 cm3 LVOT Mean PG 5.3 mmHg LA Dimen 2D 3.8 2.3 - 4.0 cm LVOT Peak Yeyo 1.6 m/sec LVOT Peak PG 10.2 mmHg LVOT VTI 32.9 cm MV E Peak Yeyo 1.0 m/sec MV A Peak Yeyo 0.9 m/sec MV E/A 1.1 MV Decel Time 242 msec MV Decel Coke 4 MV E/A 1.1 Findings Left Ventricle: Normal left ventricular systolic function. Normal left ventricular cavity size. Mild concentric left ventricular hypertrophy. Ejection fraction is visually estimated at 6065 %. Tissue Doppler/Mitral Doppler indices are consistent with pseudonormalization with mildly elevated left atrial pressure (Stage II diastolic dysfunction). Right Ventricle: Normal right ventricular size. Normal right ventricular systolic function. Left Atrium: The left atrium is normal in size. Right Atrium: The right atrium is normal in size. Mitral Valve: Mitral valve leaflets appear mildly thickened. Mild mitral annular calcification. Mild mitral valve regurgitation. Aortic Valve: Aortic valve Max velocity 2.30 m/sec. Max PG 21.00 mmHg. Mean PG 11.00 mmHg. Aortic sclerosis without stenosis. Aortic cusps appear mildly calcified. Trace aortic valve regurgitation. Tricuspid Valve: Normal appearance of the tricuspid valve. Unable to obtain RVSP due to minimal presence of tricuspid regurgitation. Pulmonic Valve: Normal pulmonic valve appearance. There is trace pulmonic regurgitation. Pericardium: Normal pericardium with no significant pericardial effusion. Aorta: Normal aortic root. IVC: Normal size and normal respiratory collapse consistent with normal right atrial pressure. Conclusions 1.The left ventricle is normal in size and systolic function. 2.Estimated left ventricular ejection fraction of 60-65%. 3.Mild concentric left ventricular hypertorphy. Moderate left ventricular diastolic dysfunction. Electronically Signed By: Loli Mccartney 15-Jun-2016 13:40:54 -0800 Patient Name: MACARIO HERNANDEZ Study Date: 15-Jun-2016 [id number]
--- NOTE | 2016-06-15 14:48 | CONS ---
Date/Time of Note Date/Time of Note DATE: 06/15/16 TIME: 14:32 Assessment/Plan Assessment/Plan Chief Complaint/Hosp Course Accelerated hypertension: blood pressures improved, but still elevated Right ovarian mass Urinary retention Acute kidney injury on chronic renal failure Chronic diastolic heart failure: clinically compensated Coronary artery disease, status post CABG Diabetes mellitus Renal artery stenosis, status post renal artery stent Obstructive sleep apnea Morbid obesity Pre-operative cardiac evaluation: planned for laparoscopic ovarian surgery -add hydralazine 50mg PO Q8hr -continue nebivolol 20mg daily, amlodipine 10mg daily, lisinopril 10mg daily, methyldopa 500mg BID -continue Lasix 20mg PO daily -continue aspirin 81mg daily -EKG (06/09/2016): normal sinus rhythm, normal EKG -echocardiogram (06/14/2016): LVEF 60-65%, mild LVH, moderate diastolic dysfunction -intermediate cardiac risk patient planned for moderate cardiac risk procedure -no evidence of unstable cardiac condition, patient is optimized for surgery from cardiac perspective Problems: Consultation Date/Type/Reason Admit Date/Time Jun 09, 2016 at 12:22 Initial Consult Date 06/10/16 Type of Consultation: Cardiology 24 HR Interval Summary Free Text/Dictation Patient denies chest pain or shortness of breath. On nasal canula. Blood pressures improved, but still elevated. Planned for laparoscopic ovarian surgery. Detailed Summary Additional Comments 14 point review of systems without changes. Exam/Review of Systems Vital Signs Vitals Vital Signs Date Time Temp Pulse Resp B/P Pulse Ox O2 Delivery O2 Flow Rate FiO2 06/15/16 13:21 58 20 98 Nasal Cannula 2.0 06/15/16 04:53 143/67 06/15/16 01:50 98.5 Intake and Output 06/14/16 06/14/16 06/15/16 15:00 23:00 07:00 Intake Total 1600 ml 300 ml Output Total 2900 ml 350 ml Balance -1300 ml -50 ml Results Result Diagram: 06/14/16 1011 06/14/16 1011 Results 24 hrs Laboratory Tests Test 06/14/16 17:04 06/14/16 20:45 06/15/16 01:38 06/15/16 08:32 Bedside Glucose 189 209 294 H 154 Test 06/15/16 10:25 06/15/16 11:33 Arterial Blood HCO3 21.9 L Arterial Blood Base Excess -3.0 Arterial Blood Oxygen Saturation 88.5 L Jasmeet Test ACCEPTAB Arterial Blood Gas Puncture Site Right Brachial Arterial Blood Carboxyhemoglobin 0.3 Arterial Blood Date Drawn 06/15/2016 11:29:37 AM Arterial Blood Methemoglobin 0.1 Arterial Blood pCO2 (Temp correct) 38.6 Arterial Blood pH (Temp corrected) 7.372 Arterial Blood pO2 (Temp corrected) 56.9 L Blood Gas A-a O2 Differential 46.6 H Blood Gas Modality ROOM AIR Blood Gas Notified Time 06/15/2016 11:36:18 AM Blood Gas Notified Whom TK Blood Gas Specimen Source Blood arterial Blood Gas Temperature 37.0 FiO2 21.0 Oxyhemoglobin Percent 88.1 L Total Hemoglobin 12.7 Bedside Glucose 215 Medications Medications Current Medications Aspirin (Halfprin) 81 mg DAILY PO Last administered on 06/15/16 09:35; Admin Dose 81 MG; Start 06/10/16 at 09:00 Gabapentin (Neurontin) 600 mg TID PO Last administered on 06/15/16 12:02; Admin Dose 600 MG; Start 06/09/16 at 21:00 Miscellaneous Medication (Bystolic) 20 mg DAILY PO Last administered on 09:36; Admin Dose 20 MG; Start 06/10/16 at 09:00 Pregabalin (Lyrica) 150 mg QHS PO Last administered on 06/14/16 20:47; Admin Dose 150 MG; Start 06/09/16 at 21:00 Valacyclovir HCl (Valtrex) 1,000 mg BID PO Last administered on 06/15/16 09:34 ; Admin Dose 1,000 MG; Start 06/09/16 at 21:00 Miscellaneous Information 1 ea NOTE XX ; Start 06/09/16 at 18:30 Glucose (Glutose) 15 gm Q15M PRN PO DECREASED GLUCOSE; Start 06/09/16 at 18:30 Glucose (Glutose) 22.5 gm Q15M PRN PO DECREASED GLUCOSE; Start 06/09/16 at 18: 30 Dextrose (D50w Syringe) 25 ml Q15M PRN IV DECREASED GLUCOSE; Start 06/09/16 at 18:30 Dextrose (D50w Syringe) 50 ml Q15M PRN IV DECREASED GLUCOSE; Start 06/09/16 at 18:30 Glucagon (Glucagen) 1 mg Q15M PRN IM DECREASED GLUCOSE; Start 06/09/16 at 18:30 Glucose (Glutose) 15 gm Q15M PRN BUCCAL DECREASED GLUCOSE; Start 06/09/16 at 18 :30 Amlodipine Besylate (Norvasc) 10 mg DAILY PO Last administered on 06/15/16 09: 36; Admin Dose 10 MG; Start 06/09/16 at 20:30 Hydromorphone HCl (Dilaudid) 0.5 mg Q4H PRN IV PAIN Last administered on 01:32; Admin Dose 0.5 MG; Start 06/10/16 at 02:30 Methyldopa (Aldomet) 500 mg BID PO Last administered on 06/15/16 09:35; Admin Dose 500 MG; Start 06/10/16 at 02:30 Pantoprazole (Protonix Tab) 40 mg DAILY@06 PO Last administered on 06/14/16 07 :15; Admin Dose 40 MG; Start 06/11/16 at 06:00 Enoxaparin Sodium (Lovenox) 30 mg DAILY SC Last administered on 06/15/16 09:38 ; Admin Dose 30 MG; Start 06/11/16 at 09:00 Clonidine (Catapres) 0.2 mg Q6H PRN PO SBP above 160 Last administered on 12:02; Admin Dose 0.2 MG; Start 06/10/16 at 12:17 Hydralazine HCl (Apresoline) 10 mg Q4H PRN IV SBP >170 Last administered on 00:24; Admin Dose 10 MG; Start 06/10/16 at 15:00 Furosemide (Lasix) 20 mg DAILY PO Last administered on 06/15/16 09:35; Admin Dose 20 MG; Start 06/11/16 at 09:00 Insulin Glargine (Lantus) 32 unit BID SC Last administered on 06/15/16 09:40; Admin Dose 32 UNIT; Start 06/11/16 at 21:00 Lorazepam (Ativan) 0.5 mg HS PO Last administered on 06/15/16 00:15; Admin Dose 0.5 MG; Start 06/11/16 at 22:00 Lisinopril (Zestril) 10 mg DAILY PO Last administered on 06/15/16 09:36; Admin Dose 10 MG; Start 06/12/16 at 09:00 Bethanechol Chloride (Urecholine) 25 mg TID PO Last administered on 06/15/16 13:56; Admin Dose 25 MG; Start 06/13/16 at 13:00 LOLI MCCARTNEY MD Jun 15, 2016 14:42
--- NOTE | 2016-06-15 19:02 | CONS ---
Date/Time of Note Date/Time of Note DATE: 06/15/16 TIME: 18:45 Assessment/Plan Assessment/Plan Problems: (1) Type 2 diabetes mellitus with hyperglycemia Status: Chronic Comment: Pt. likely does not require the amount of insulin she suspects. Cannot receive SGLT-2 or metformin due to renal insufficiency. Will place on carb restricted diet and on 40% basal and 60% bolus regimen and titrate her doses upwards to level of control where she remains in goal range from 100-180 mg/dL the bulk of the time. Will follow with you. Qualifiers: Qualified Code: E11.65 - Type 2 diabetes mellitus with hyperglycemia, with long-term current use of insulin Consultation Date/Type/Reason Admit Date/Time Jun 09, 2016 at 12:22 Date of Consultation: Jun 15, 2016 Type of Consultation: Endocrinology Reason for Consultation [id number] Referring Provider: SHARLA SOUSA MD Hx of Present Illness 60 y/o C F w/ h/o T2DM, HTN, hyperlipidemia, CAD/CABG, TIA, nephrolithiasis, GERD, in [facility] until 8 d ago when she developed R flank pain and SOB. Became unable to urinate. By the time she came to ER 6 d ago claimed she had not urinated for 2 days. Pt. found on admitting imagery to have adnexal mass. This has been localized to ovarian. Pt. will likely have laparoscopic BSO in near future. Renal fxn has been impaired since admit. Glucose levels up and down and pt. insisting she needs more insulin than she is getting. PMD called endo consult. Constitutional: no complaints Eyes: no complaints ENT: no complaints Respiratory: no complaints Cardiovascular: no complaints Gastrointestinal: no complaints Genitourinary: no complaints Musculoskeletal: no complaints Neurologic: no complaints Psychological: no complaints Past Medical History Medical History: coronary artery disease, diabetes, GERD, high cholesterol, hypertension, other (ureterolithiasis) Past Surgical History Past Surgical Hx: angioplasty, coronary bypass surgery, other (ureteral stent) Family History Significant Family History: heart disease, diabetes, hypertension Social History b. [place], in [facility] since [facility], unemployed, , 1 child Alcohol Use: none Smoking Status: Former smoker (1 ppd x 20-30 y, quit 13 y. ago) Drug Use: none Exam/Review of Systems Vital Signs Vitals Vital Signs Date Time Temp Pulse Resp B/P Pulse Ox O2 Delivery O2 Flow Rate FiO2 06/15/16 13:21 58 20 98 Nasal Cannula 2.0 06/15/16 04:53 143/67 06/15/16 01:50 98.5 Intake and Output 06/14/16 06/14/16 06/15/16 15:00 23:00 07:00 Intake Total 1600 ml 300 ml Output Total 2900 ml 350 ml Balance -1300 ml -50 ml Exam Constitutional: alert, obese, oriented Psych: nl mood/affect, no complaints Eyes: EOMI, PERRL, nl lids, nl sclera, No nl conjunctiva (injected) ENMT: mucosa pink and moist, nl external ears & nose Neck: non-tender, supple, No bruits, No masses, No thyromegaly Respiratory: clear to auscultation, normal air movement Cardiovascular: nl pulses, regular rate and rhythm, No edema, No murmurs/extra sounds, No rub Gastrointestinal: bowel sounds, nl liver, spleen, non-tender, soft, No mass, No rebound or guarding Musculoskeletal: nl extremities to inspection, nl gait and stance Extremities: normal pulses, No clubbing, No cyanosis, No edema Neurological: CORE PLACER II-XII intact, nl mental status, nl speech, nl strength Additional Comments Bedside Glucose - 72 Hours Test 06/12/16 21:27 06/13/16 08:07 06/13/16 12:23 06/13/16 18:12 Bedside Glucose 250mg/dL (70-220) H 193mg/dL (70-220) 261mg/dL (70-220) H 256mg/dL (70-220) H Test 06/13/16 20:31 06/14/16 02:15 06/14/16 08:00 06/14/16 12:12 Bedside Glucose 249mg/dL (70-220) H 198mg/dL (70-220) 160mg/dL (70-220) 269mg/dL (70-220) H Test 06/14/16 17:04 06/14/16 20:45 06/15/16 01:38 06/15/16 08:32 Bedside Glucose 189mg/dL (70-220) 209mg/dL (70-220) 294mg/dL (70-220) H 154mg/dL (70-220) Test 06/15/16 11:33 06/15/16 16:27 Bedside Glucose 215mg/dL (70-220) 161mg/dL (70-220) Results Result Diagram: 06/14/16 1011 06/14/16 1011 Results 24 hrs Laboratory Tests Test 06/14/16 20:45 06/15/16 01:38 06/15/16 08:32 06/15/16 10:25 Bedside Glucose 209 294 H 154 Arterial Blood HCO3 21.9 L Arterial Blood Base Excess -3.0 Arterial Blood Oxygen Saturation 88.5 L Jasmeet Test ACCEPTAB Arterial Blood Gas Puncture Site Right Brachial Arterial Blood Carboxyhemoglobin 0.3 Arterial Blood Date Drawn 06/15/2016 11:29:37 AM Arterial Blood Methemoglobin 0.1 Arterial Blood pCO2 (Temp correct) 38.6 Arterial Blood pH (Temp corrected) 7.372 Arterial Blood pO2 (Temp corrected) 56.9 L Blood Gas A-a O2 Differential 46.6 H Blood Gas Modality ROOM AIR Blood Gas Notified Time 06/15/2016 11:36:18 AM Blood Gas Notified Whom TK Blood Gas Specimen Source Blood arterial Blood Gas Temperature 37.0 FiO2 21.0 Oxyhemoglobin Percent 88.1 L Total Hemoglobin 12.7 Test 06/15/16 11:33 06/15/16 16:27 Bedside Glucose 215 161 Medications Medications Current Medications Aspirin (Halfprin) 81 mg DAILY PO Last administered on 06/15/16 09:35; Admin Dose 81 MG; Start 06/10/16 at 09:00 Gabapentin (Neurontin) 600 mg TID PO Last administered on 06/15/16 12:02; Admin Dose 600 MG; Start 06/09/16 at 21:00 Miscellaneous Medication (Bystolic) 20 mg DAILY PO Last administered on 09:36; Admin Dose 20 MG; Start 06/10/16 at 09:00 Pregabalin (Lyrica) 150 mg QHS PO Last administered on 06/14/16 20:47; Admin Dose 150 MG; Start 06/09/16 at 21:00 Valacyclovir HCl (Valtrex) 1,000 mg BID PO Last administered on 06/15/16 09:34 ; Admin Dose 1,000 MG; Start 06/09/16 at 21:00 Miscellaneous Information 1 ea NOTE XX ; Start 06/09/16 at 18:30 Glucose (Glutose) 15 gm Q15M PRN PO DECREASED GLUCOSE; Start 06/09/16 at 18:30 Glucose (Glutose) 22.5 gm Q15M PRN PO DECREASED GLUCOSE; Start 06/09/16 at 18: 30 Dextrose (D50w Syringe) 25 ml Q15M PRN IV DECREASED GLUCOSE; Start 06/09/16 at 18:30 Dextrose (D50w Syringe) 50 ml Q15M PRN IV DECREASED GLUCOSE; Start 06/09/16 at 18:30 Glucagon (Glucagen) 1 mg Q15M PRN IM DECREASED GLUCOSE; Start 06/09/16 at 18:30 Glucose (Glutose) 15 gm Q15M PRN BUCCAL DECREASED GLUCOSE; Start 06/09/16 at 18 :30 Amlodipine Besylate (Norvasc) 10 mg DAILY PO Last administered on 06/15/16 09: 36; Admin Dose 10 MG; Start 06/09/16 at 20:30 Hydromorphone HCl (Dilaudid) 0.5 mg Q4H PRN IV PAIN Last administered on 01:32; Admin Dose 0.5 MG; Start 06/10/16 at 02:30 Methyldopa (Aldomet) 500 mg BID PO Last administered on 06/15/16 09:35; Admin Dose 500 MG; Start 06/10/16 at 02:30 Pantoprazole (Protonix Tab) 40 mg DAILY@06 PO Last administered on 06/14/16 07 :15; Admin Dose 40 MG; Start 06/11/16 at 06:00 Enoxaparin Sodium (Lovenox) 30 mg DAILY SC Last administered on 06/15/16 09:38 ; Admin Dose 30 MG; Start 06/11/16 at 09:00 Clonidine (Catapres) 0.2 mg Q6H PRN PO SBP above 160 Last administered on 12:02; Admin Dose 0.2 MG; Start 06/10/16 at 12:17 Hydralazine HCl (Apresoline) 10 mg Q4H PRN IV SBP >170 Last administered on 00:24; Admin Dose 10 MG; Start 06/10/16 at 15:00 Furosemide (Lasix) 20 mg DAILY PO Last administered on 06/15/16 09:35; Admin Dose 20 MG; Start 06/11/16 at 09:00 Lorazepam (Ativan) 0.5 mg HS PO Last administered on 06/15/16 00:15; Admin Dose 0.5 MG; Start 06/11/16 at 22:00 Lisinopril (Zestril) 10 mg DAILY PO Last administered on 06/15/16 09:36; Admin Dose 10 MG; Start 06/12/16 at 09:00 Bethanechol Chloride (Urecholine) 25 mg TID PO Last administered on 06/15/16 13:56; Admin Dose 25 MG; Start 06/13/16 at 13:00 Hydralazine HCl (Apresoline) 50 mg Q8H PO Last administered on 06/15/16 16:38 ; Admin Dose 50 MG; Start 06/15/16 at 15:00 Insulin Glargine (Lantus) 48 unit DAILY@20 SC ; Start 06/15/16 at 20:00 Linagliptin (Tradjenta) 5 mg DAILY PO ; Start 06/16/16 at 09:00 Empaglifozin (Jardiance) 25 mg DAILY@08 PO ; Start 06/16/16 at 08:00 NICOLLE GONZALES MD Jun 15, 2016 18:56
[2016-06-15] MEDS ORDERED: INSULIN GLARGINE [LANtus] 3 ML PEN SC SCH ×3 (20:00)
--- NOTE | 2016-06-15 20:55 | CONS ---
Date/Time of Note Date/Time of Note DATE: 06/15/16 TIME: 20:51 Assessment/Plan Assessment/Plan Chief Complaint/Hosp Course 1. A right ovarian cystic mass. Etiology is unclear, concerning for possible malignancy. ca 125-n AMENDMENT to CT AP 06/12/2016 2:01:08 PM Ethan Villanueva MD Comparison is made with prior CT scan of the abdomen and pelvis dated 11/23/2009. The large right adnexal mass measures 6.7 x 8.8 x 7.4 cm on the current study and measured 3.7 x 4.6 x 4.8 cm on 11/23/2009. MRI PELVIS- Large complex cystic right ovarian mass which in a postmenopausal female is worrisome for an ovarian cystic neoplasm. Multiple uterine masses consistent with a leiomyomatous uterus. SEEN BY GYNEONC-will observe urologic response to medication and surgery definitely an option but requires clearance. Would approach laparoscopic and can do LSH/BSO with minilap and stage if needed. D/W PT AND FAMILY- D/W PT AND FAMILY , CARDIAC AND PULM CLEARANCE- in process 2. Anemia. Continue to monitor hemoglobin and hematocrit levels. + component ACD OBSERVE FOR BLEEDING AND HEMOLYSIS 3. Nonoliguric acute kidney injury on top of chronic kidney disease with a previous baseline renal function around 1.5 to 2 mg/dL. Etiology of acute kidney injury is possibly secondary to urinary retention, obstructive uropathy versus hemodynamics, possible cardiorenal syndrome. The patient's urinalysis shows findings of proteinuria but no pyuria, no hematuria, and a CT scan of the abdomen and pelvis showed no evidence of hydronephrosis. Plan at this point is to check a renal ultrasound. Will repeat UA with microanalysis. Will check urine electrolytes. Will continue supportive care, renally dose medications, avoid nephrotoxins, monitor renal function closely. Clinical albuminuria - PER NEPHROLOGY 4 Urinary retention. Underlying etiology is unclear. The patient is status post Flynn catheter placement with good urinary output. Seen by urology still unable to urinate on intermittent catheterizations URECHOLINE - DOSE INCREASED 5. Acute decompensated diastolic heart failure. The patient noted to have pulmonary congestion, lower extremity edema. The patient is status post Lasix; will continue- PER NEPHRO cardiology F-UP 6. History of coronary artery disease, status post coronary artery bypass graft. Continue current medical management. 7. Diabetes. Will continue Accu-Cheks, insulin sliding scale, continue Lantus. HB A1C- 8.1 8. Chronic kidney disease stage IIIB/IV. Etiology is multifactorial secondary to diabetes, hypertension. The patient is currently in acute kidney injury as stated above. Continue medical management. 9. Morbid obesity. Continue dietary modification. 10. Dyslipidemia. Continue statin therapy. 11. Obstructive sleep apnea. Continue supplemental oxygen. Consider a pulmonary consult for evaluation. 12. Hypertension- POORLY CONTROLLED Continue current blood pressure regimen. Will adjust medications as needed. CARDIOLOGY F-UP 13. History of peripheral vascular disease. Continue current medical management. 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 SEVERE DJD/OA WITH CHRONIC PAIN 16. GI PROBLEMS- WITH ABD PAIN, DIARRHEA/ ALTERNATING WITH CONSTIPATION GI EVAL AND F-UP Problems: Consultation Date/Type/Reason Admit Date/Time Jun 09, 2016 at 12:22 Initial Consult Date 06/09/16 Type of Consultation: hemeon Referring Provider: SHARLA SOUSA MD 24 HR Interval Summary Free Text/Dictation all noted d/w family clearance procedure in process Exam/Review of Systems Vital Signs Vitals Vital Signs Date Time Temp Pulse Resp B/P Pulse Ox O2 Delivery O2 Flow Rate FiO2 06/15/16 20:12 98.0 61 18 145/60 94 06/15/16 16:00 Nasal Cannula 06/15/16 13:21 2.0 Intake and Output 06/14/16 06/14/16 06/15/16 15:00 23:00 07:00 Intake Total 1600 ml 300 ml Output Total 2900 ml 350 ml Balance -1300 ml -50 ml Exam Constitutional: alert, oriented Psych: no complaints Head: normocephalic Neck: No jvd Respiratory: clear to auscultation, diminished breath sounds Cardiovascular: regular rate and rhythm, No edema Gastrointestinal: soft Neurological: nl mental status, nl speech Results Result Diagram: 06/14/16 1011 06/14/16 1011 Results 24 hrs Laboratory Tests Test 06/15/16 01:38 06/15/16 08:32 06/15/16 10:25 06/15/16 11:33 Bedside Glucose 294 H 154 215 Arterial Blood HCO3 21.9 L Arterial Blood Base Excess -3.0 Arterial Blood Oxygen Saturation 88.5 L Jasmeet Test ACCEPTAB Arterial Blood Gas Puncture Site Right Brachial Arterial Blood Carboxyhemoglobin 0.3 Arterial Blood Date Drawn 06/15/2016 11:29:37 AM Arterial Blood Methemoglobin 0.1 Arterial Blood pCO2 (Temp correct) 38.6 Arterial Blood pH (Temp corrected) 7.372 Arterial Blood pO2 (Temp corrected) 56.9 L Blood Gas A-a O2 Differential 46.6 H Blood Gas Modality ROOM AIR Blood Gas Notified Time 06/15/2016 11:36:18 AM Blood Gas Notified Whom TK Blood Gas Specimen Source Blood arterial Blood Gas Temperature 37.0 FiO2 21.0 Oxyhemoglobin Percent 88.1 L Total Hemoglobin 12.7 Test 06/15/16 16:27 Bedside Glucose 161 Medications Medications Current Medications Aspirin (Halfprin) 81 mg DAILY PO Last administered on 06/15/16 09:35; Admin Dose 81 MG; Start 06/10/16 at 09:00 Gabapentin (Neurontin) 600 mg TID PO Last administered on 06/15/16 12:02; Admin Dose 600 MG; Start 06/09/16 at 21:00 Miscellaneous Medication (Bystolic) 20 mg DAILY PO Last administered on 09:36; Admin Dose 20 MG; Start 06/10/16 at 09:00 Pregabalin (Lyrica) 150 mg QHS PO Last administered on 06/14/16 20:47; Admin Dose 150 MG; Start 06/09/16 at 21:00 Valacyclovir HCl (Valtrex) 1,000 mg BID PO Last administered on 06/15/16 09:34 ; Admin Dose 1,000 MG; Start 06/09/16 at 21:00 Miscellaneous Information 1 ea NOTE XX ; Start 06/09/16 at 18:30 Glucose (Glutose) 15 gm Q15M PRN PO DECREASED GLUCOSE; Start 06/09/16 at 18:30 Glucose (Glutose) 22.5 gm Q15M PRN PO DECREASED GLUCOSE; Start 06/09/16 at 18: 30 Dextrose (D50w Syringe) 25 ml Q15M PRN IV DECREASED GLUCOSE; Start 06/09/16 at 18:30 Dextrose (D50w Syringe) 50 ml Q15M PRN IV DECREASED GLUCOSE; Start 06/09/16 at 18:30 Glucagon (Glucagen) 1 mg Q15M PRN IM DECREASED GLUCOSE; Start 06/09/16 at 18:30 Glucose (Glutose) 15 gm Q15M PRN BUCCAL DECREASED GLUCOSE; Start 06/09/16 at 18 :30 Amlodipine Besylate (Norvasc) 10 mg DAILY PO Last administered on 06/15/16 09: 36; Admin Dose 10 MG; Start 06/09/16 at 20:30 Hydromorphone HCl (Dilaudid) 0.5 mg Q4H PRN IV PAIN Last administered on 01:32; Admin Dose 0.5 MG; Start 06/10/16 at 02:30 Methyldopa (Aldomet) 500 mg BID PO Last administered on 06/15/16 09:35; Admin Dose 500 MG; Start 06/10/16 at 02:30 Pantoprazole (Protonix Tab) 40 mg DAILY@06 PO Last administered on 06/14/16 07 :15; Admin Dose 40 MG; Start 06/11/16 at 06:00 Enoxaparin Sodium (Lovenox) 30 mg DAILY SC Last administered on 06/15/16 09:38 ; Admin Dose 30 MG; Start 06/11/16 at 09:00 Clonidine (Catapres) 0.2 mg Q6H PRN PO SBP above 160 Last administered on 12:02; Admin Dose 0.2 MG; Start 06/10/16 at 12:17 Hydralazine HCl (Apresoline) 10 mg Q4H PRN IV SBP >170 Last administered on 00:24; Admin Dose 10 MG; Start 06/10/16 at 15:00 Furosemide (Lasix) 20 mg DAILY PO Last administered on 06/15/16 09:35; Admin Dose 20 MG; Start 06/11/16 at 09:00 Lorazepam (Ativan) 0.5 mg HS PO Last administered on 06/15/16 00:15; Admin Dose 0.5 MG; Start 06/11/16 at 22:00 Lisinopril (Zestril) 10 mg DAILY PO Last administered on 06/15/16 09:36; Admin Dose 10 MG; Start 06/12/16 at 09:00 Bethanechol Chloride (Urecholine) 25 mg TID PO Last administered on 06/15/16 13:56; Admin Dose 25 MG; Start 06/13/16 at 13:00 Hydralazine HCl (Apresoline) 50 mg Q8H PO Last administered on 06/15/16t 16:38 ; Admin Dose 50 MG; Start 06/15/16 at 15:00 Linagliptin (Tradjenta) 5 mg DAILY PO ; Start 06/16/16 at 09:00 Insulin Glargine (Lantus) 36 unit DAILY@20 SC ; Start 06/15/16 at 20:00 Capsaicin (Theragen) 1 applic QID TOP ; Start 06/15/16 at 21:00 SHARLA SOUSA MD Jun 15, 2016 20:55
[2016-06-15] MEDS: CAPSAICIN 0.025% 60 GM CR TOP SCH (20:56)
[2016-06-15] MEDS: PREGABALIN 75 MG CAP PO SCH (20:56)
[2016-06-15] MEDS ORDERED: metFORMIN (XR) 500 MG TAB PO SCH (21:00)
[2016-06-16] VITALS (7 sets, daily range): BP systolic 126–150; BP diastolic 61–75; PULSE 61–78; RESP 19–21
[2016-06-16] MEDS: HYDROmorphONE 1 MG/ML SYG IV PRN ×2 (00:21→23:57)
[2016-06-16] MEDS: PANTOPRAZOLE (EC) 40 MG TAB PO SCH (06:04)
[2016-06-16 06:57] LABS: POTASSIUM 4.5 mmol/L (3.5-5.1)
[2016-06-16 06:58] LABS: BASOPHILS % 0.4 % (0.0-2.0); EOSINOPHILS # 0.1 10^3/ul (0.0-0.5); EOSINOPHILS % 1.9 % (0.0-7.0); HEMATOCRIT 32.7 % (37.0-47.0); HEMOGLOBIN 10.8 g/dl (12.0-16.0); LYMPHOCYTES # 1.9 10^3/ul (0.8-2.9); LYMPHOCYTES % 26.7 % (15.0-51.0); MEAN CORPUSCULAR HEMOGLOBIN 32.2 pg (29.0-33.0); MEAN CORPUSCULAR VOLUME 97.5 fl (82.0-101.0); MEAN PLATELET VOLUME 9.2 fl (7.4-10.4); MONOCYTE # 0.7 10^3/ul (0.3-0.9); MONOCYTES % 10.2 % (0.0-11.0); NEUTROPHIL # 4.2 10^3/ul (1.6-7.5); NEUTROPHILS % 60.8 % (39.0-77.0); PLATELET COUNT 197 10^3/UL (140-440); RED BLOOD COUNT 3.36 10^6/ul (4.20-5.40)
[2016-06-16 07:01] LABS: CALCIUM 8.2 mg/dl (8.4-10.2); MAGNESIUM 2.1 mg/dl (1.7-2.5); PHOSPHORUS 4.8 mg/dl (2.5-4.9)
[2016-06-16 07:34] LABS: CONDITION 1; LH ANALYZER COMMENTS 1
[2016-06-16] MEDS ORDERED: INSULIN ASPART [NOVOLOG] 3 ML PEN SC SCH ×2 (07:50)
[2016-06-16] MEDS ORDERED: EMPAGLIFLOZIN 10 MG TABLET PO SCH (08:00)
[2016-06-16] MEDS: ALBUTEROL/IPRATROPIUM (NEB) 3 ML AMP HHN SCH ×3 (08:00→20:00)
[2016-06-16] MEDS: CAPSAICIN 0.025% 60 GM CR TOP SCH ×4 (09:00→21:04)
[2016-06-16] MEDS: VALACYCLOVIR 500 MG TAB PO SCH ×2 (09:36→21:05)
[2016-06-16] MEDS: NEBIVOLOL 5 MG TAB PO SCH (09:37)
[2016-06-16] MEDS: ASPIRIN (EC) 81 MG TAB PO SCH (09:37)
[2016-06-16] MEDS: METHYLDOPA 500 MG TAB PO SCH ×2 (09:37→21:04)
[2016-06-16] MEDS: GABAPENTIN 300 MG CAP PO SCH ×3 (09:38→21:05)
[2016-06-16] MEDS: BETHANECHOL 25 MG TAB PO SCH ×3 (09:38→21:04)
[2016-06-16] MEDS: AMLODIPINE 10 MG TAB PO SCH (09:38)
[2016-06-16] MEDS: LINAGLIPTIN 5 MG TABLET PO SCH (09:38)
[2016-06-16] MEDS: FUROSEMIDE 20 MG TAB PO SCH (09:38)
[2016-06-16] MEDS: LISINOPRIL 10 MG TAB PO SCH ×2 (09:39→21:10)
[2016-06-16] MEDS: INSULIN ASPART [NOVOLOG] 3 ML PEN SC SCH ×7 (09:41→21:07)
[2016-06-16] MEDS: ENOXAPARIN 30 MG/0.3 ML SYG SC SCH (09:46)
--- NOTE | 2016-06-16 10:07 | CONS ---
Date/Time of Note Date/Time of Note DATE: 06/16/16 TIME: 10:05 Assessment/Plan Assessment/Plan Chief Complaint/Hosp Course HTN urgency: BPs improving Acute on chronic diastolic heart failure: EF preserved.~euvolemic Ovarian mass: Being evaluated by heme/onc. Likely laparoscopic surgery Urinary retention: required martinez. now better Acute on chronic renal failure: improved after obstruction resolved. Stable h/o CAD s/p CABG DM PVD s/p renal stent -continue amlodipine 10mg, lisinopril 10mg BID -hydralazine 50mg q8h -continue home nebivolol, methyldopa -lasix 20mg PO daily -ok to proceed with surgery from cardiology standpoint Problems: Consultation Date/Type/Reason Admit Date/Time Jun 09, 2016 at 12:22 Initial Consult Date 06/10/16 Type of Consultation: Cardiology Referring Provider: SHARLA SOUSA MD 24 HR Interval Summary Free Text/Dictation No o/n events. BPs better. No complaints Exam/Review of Systems Vital Signs Vitals Vital Signs Date Time Temp Pulse Resp B/P Pulse Ox O2 Delivery O2 Flow Rate FiO2 06/16/16 07:52 97.5 58 19 150/75 06/15/16 21:39 94 21 06/15/16 16:00 Nasal Cannula 06/15/16 13:21 2.0 Intake and Output 06/15/16 06/15/16 06/16/16 15:00 23:00 07:00 Intake Total 500 ml Output Total 750 ml Balance -250 ml Results Result Diagram: 06/16/16 0604 06/16/16 0604 Results 24 hrs Laboratory Tests Test 06/15/16 10:25 06/15/16 11:33 06/15/16 16:27 06/15/16 20:49 Arterial Blood HCO3 21.9 L Arterial Blood Base Excess -3.0 Arterial Blood Oxygen Saturation 88.5 L Jasmeet Test ACCEPTAB Arterial Blood Gas Puncture Site Right Brachial Arterial Blood Carboxyhemoglobin 0.3 Arterial Blood Date Drawn 06/15/2016 11:29:37 AM Arterial Blood Methemoglobin 0.1 Arterial Blood pCO2 (Temp correct) 38.6 Arterial Blood pH (Temp corrected) 7.372 Arterial Blood pO2 (Temp corrected) 56.9 L Blood Gas A-a O2 Differential 46.6 H Blood Gas Modality ROOM AIR Blood Gas Notified Time 06/15/2016 11:36:18 AM Blood Gas Notified Whom TK Blood Gas Specimen Source Blood arterial Blood Gas Temperature 37.0 FiO2 21.0 Oxyhemoglobin Percent 88.1 L Total Hemoglobin 12.7 Bedside Glucose 215 161 354 H Test 06/16/16 00:28 06/16/16 06:04 06/16/16 06:57 Bedside Glucose 241 H 162 Anion Gap 14 Basophils # 0.0 Basophils % 0.4 Blood Morphology Comment Blood Urea Nitrogen 37 H Calcium Level 8.2 L Carbon Dioxide Level 26 Chloride Level 106 Creatinine 2.00 H Eosinophils # 0.1 Eosinophils % 1.9 Glucose Level 129 # Hematocrit 32.7 L Hemoglobin 10.8 L Lymphocytes # 1.9 Lymphocytes % 26.7 Magnesium Level 2.1 Mean Corpuscular Hemoglobin 32.2 Mean Corpuscular Hemoglobin Concent 33.0 Mean Corpuscular Volume 97.5 Mean Platelet Volume 9.2 Monocytes # 0.7 Monocytes % 10.2 Neutrophils # 4.2 Neutrophils % 60.8 Nucleated Red Blood Cells # 0.0 Nucleated Red Blood Cells % 0.0 Phosphorus Level 4.8 Platelet Count 197 Potassium Level 4.5 Red Blood Count 3.36 L Red Cell Distribution Width 17.0 H Sodium Level 141 White Blood Count 7.0 # Medications Medications Current Medications Aspirin (Halfprin) 81 mg DAILY PO Last administered on 06/16/16 09:37; Admin Dose 81 MG; Start 06/10/16 at 09:00 Gabapentin (Neurontin) 600 mg TID PO Last administered on 06/16/16 09:38; Admin Dose 600 MG; Start 06/09/16 at 21:00 Miscellaneous Medication (Bystolic) 20 mg DAILY PO Last administered on 09:37; Admin Dose 20 MG; Start 06/10/16 at 09:00 Pregabalin (Lyrica) 150 mg QHS PO Last administered on 06/15/16 20:56; Admin Dose 150 MG; Start 06/09/16 at 21:00 Valacyclovir HCl (Valtrex) 1,000 mg BID PO Last administered on 06/16/16 09:36 ; Admin Dose 1,000 MG; Start 06/09/16 at 21:00 Miscellaneous Information 1 ea NOTE XX ; Start 06/09/16 at 18:30 Glucose (Glutose) 15 gm Q15M PRN PO DECREASED GLUCOSE; Start 06/09/16 at 18:30 Glucose (Glutose) 22.5 gm Q15M PRN PO DECREASED GLUCOSE; Start 06/09/16 at 18: 30 Dextrose (D50w Syringe) 25 ml Q15M PRN IV DECREASED GLUCOSE; Start 06/09/16 at 18:30 Dextrose (D50w Syringe) 50 ml Q15M PRN IV DECREASED GLUCOSE; Start 06/09/16 at 18:30 Glucagon (Glucagen) 1 mg Q15M PRN IM DECREASED GLUCOSE; Start 06/09/16 at 18:30 Glucose (Glutose) 15 gm Q15M PRN BUCCAL DECREASED GLUCOSE; Start 06/09/16 at 18 :30 Amlodipine Besylate (Norvasc) 10 mg DAILY PO Last administered on 06/16/16 09: 38; Admin Dose 10 MG; Start 06/09/16 at 20:30 Hydromorphone HCl (Dilaudid) 0.5 mg Q4H PRN IV PAIN Last administered on 00:21; Admin Dose 0.5 MG; Start 06/10/16 at 02:30 Methyldopa (Aldomet) 500 mg BID PO Last administered on 06/16/16 09:37; Admin Dose 500 MG; Start 06/10/16 at 02:30 Pantoprazole (Protonix Tab) 40 mg DAILY@06 PO Last administered on 06/16/16 06 :04; Admin Dose 40 MG; Start 06/11/16 at 06:00 Enoxaparin Sodium (Lovenox) 30 mg DAILY SC Last administered on 06/16/16 09:46 ; Admin Dose 30 MG; Start 06/11/16 at 09:00 Clonidine (Catapres) 0.2 mg Q6H PRN PO SBP above 160 Last administered on 12:02; Admin Dose 0.2 MG; Start 06/10/16 at 12:17 Hydralazine HCl (Apresoline) 10 mg Q4H PRN IV SBP >170 Last administered on 00:24; Admin Dose 10 MG; Start 06/10/16 at 15:00 Furosemide (Lasix) 20 mg DAILY PO Last administered on 06/16/16 09:38; Admin Dose 20 MG; Start 06/11/16 at 09:00 Lorazepam (Ativan) 0.5 mg HS PO Last administered on 06/15/16 00:15; Admin Dose 0.5 MG; Start 06/11/16 at 22:00 Bethanechol Chloride (Urecholine) 25 mg TID PO Last administered on 06/16/16 09:38; Admin Dose 25 MG; Start 06/13/16 at 13:00 Hydralazine HCl (Apresoline) 50 mg Q8H PO Last administered on 06/16/16 07:02 ; Admin Dose 50 MG; Start 06/15/16 at 15:00 Linagliptin (Tradjenta) 5 mg DAILY PO Last administered on 06/16/16 09:38; Admin Dose 5 MG; Start 06/16/16 at 09:00 Insulin Glargine (Lantus) 36 unit DAILY@20 SC Last administered on 06/15/16 21 :01; Admin Dose 36 UNIT; Start 06/15/16 at 20:00 Capsaicin (Theragen) 1 applic QID TOP Last administered on 06/15/16 20:56; Admin Dose 1 APPLIC; Start 06/15/16 at 21:00 Lisinopril (Zestril) 10 mg BID PO Last administered on 06/16/16 09:39; Admin Dose 10 MG; Start 06/16/16 at 09:00 AMISHA NIETO Jun 16, 2016 10:07
--- NOTE | 2016-06-16 10:16 | CONS ---
Date/Time of Note Date/Time of Note DATE: 06/16/16 TIME: 10:16 Assessment/Plan Assessment/Plan Chief Complaint/Hosp Course 1. A right ovarian cystic mass. Etiology is unclear, concerning for possible malignancy. ca 125-n AMENDMENT to CT AP 06/12/2016 2:01:08 PM Ethan Villanueva MD Comparison is made with prior CT scan of the abdomen and pelvis dated 11/23/2009. The large right adnexal mass measures 6.7 x 8.8 x 7.4 cm on the current study and measured 3.7 x 4.6 x 4.8 cm on 11/23/2009. MRI PELVIS- Large complex cystic right ovarian mass which in a postmenopausal female is worrisome for an ovarian cystic neoplasm. Multiple uterine masses consistent with a leiomyomatous uterus. SEEN BY GYNEONC-will observe urologic response to medication and surgery definitely an option but requires clearance. Would approach laparoscopic and can do LSH/BSO with minilap and stage if needed. D/W PT AND FAMILY- D/W PT AND FAMILY , CARDIAC AND PULM CLEARANCE- in process 2. Anemia. Continue to monitor hemoglobin and hematocrit levels. + component ACD OBSERVE FOR BLEEDING AND HEMOLYSIS 3. Nonoliguric acute kidney injury on top of chronic kidney disease with a previous baseline renal function around 1.5 to 2 mg/dL. Etiology of acute kidney injury is possibly secondary to urinary retention, obstructive uropathy versus hemodynamics, possible cardiorenal syndrome. The patient's urinalysis shows findings of proteinuria but no pyuria, no hematuria, and a CT scan of the abdomen and pelvis showed no evidence of hydronephrosis. Plan at this point is to check a renal ultrasound. Will repeat UA with microanalysis. Will check urine electrolytes. Will continue supportive care, renally dose medications, avoid nephrotoxins, monitor renal function closely. Clinical albuminuria - PER NEPHROLOGY 4 Urinary retention. Underlying etiology is unclear. The patient is status post Flynn catheter placement with good urinary output. Seen by urology still unable to urinate on intermittent catheterizations URECHOLINE - DOSE INCREASED 5. Acute decompensated diastolic heart failure. The patient noted to have pulmonary congestion, lower extremity edema. The patient is status post Lasix; will continue- PER NEPHRO cardiology F-UP 6. History of coronary artery disease, status post coronary artery bypass graft. Continue current medical management. 7. Diabetes. Will continue Accu-Cheks, insulin sliding scale, continue Lantus. HB A1C- 8.1 8. Chronic kidney disease stage IIIB/IV. Etiology is multifactorial secondary to diabetes, hypertension. The patient is currently in acute kidney injury as stated above. Continue medical management. 9. Morbid obesity. Continue dietary modification. 10. Dyslipidemia. Continue statin therapy. 11. Obstructive sleep apnea. Continue supplemental oxygen. Consider a pulmonary consult for evaluation. 12. Hypertension- POORLY CONTROLLED Continue current blood pressure regimen. Will adjust medications as needed. CARDIOLOGY F-UP 13. History of peripheral vascular disease. Continue current medical management. 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 SEVERE DJD/OA WITH CHRONIC PAIN 16. GI PROBLEMS- WITH ABD PAIN, DIARRHEA/ ALTERNATING WITH CONSTIPATION GI EVAL AND F-UP Problems: Consultation Date/Type/Reason Admit Date/Time Jun 09, 2016 at 12:22 Initial Consult Date 06/09/16 Type of Consultation: hemeon Referring Provider: SHARLA SOUSA MD 24 HR Interval Summary Free Text/Dictation ALL NOTED D/W STAFF NO NEW EVENTS Exam/Review of Systems Vital Signs Vitals Vital Signs Date Time Temp Pulse Resp B/P Pulse Ox O2 Delivery O2 Flow Rate FiO2 06/16/16 10:05 Nasal Cannula 2.0 06/16/16 07:52 97.5 58 19 150/75 06/15/16 21:39 94 21 Intake and Output 06/15/16 06/15/16 06/16/16 15:00 23:00 07:00 Intake Total 500 ml Output Total 750 ml Balance -250 ml Exam Constitutional: alert, oriented Psych: no complaints Head: normocephalic Neck: No jvd Respiratory: clear to auscultation, diminished breath sounds Cardiovascular: regular rate and rhythm, No edema Gastrointestinal: soft Neurological: nl mental status, nl speech Results Result Diagram: 06/16/16 0604 06/16/16 0604 Results 24 hrs Laboratory Tests Test 06/15/16 10:25 06/15/16 11:33 06/15/16 16:27 06/15/16 20:49 Arterial Blood HCO3 21.9 L Arterial Blood Base Excess -3.0 Arterial Blood Oxygen Saturation 88.5 L Jasmeet Test ACCEPTAB Arterial Blood Gas Puncture Site Right Brachial Arterial Blood Carboxyhemoglobin 0.3 Arterial Blood Date Drawn 06/15/2016 11:29:37 AM Arterial Blood Methemoglobin 0.1 Arterial Blood pCO2 (Temp correct) 38.6 Arterial Blood pH (Temp corrected) 7.372 Arterial Blood pO2 (Temp corrected) 56.9 L Blood Gas A-a O2 Differential 46.6 H Blood Gas Modality ROOM AIR Blood Gas Notified Time 06/15/2016 11:36:18 AM Blood Gas Notified Whom TK Blood Gas Specimen Source Blood arterial Blood Gas Temperature 37.0 FiO2 21.0 Oxyhemoglobin Percent 88.1 L Total Hemoglobin 12.7 Bedside Glucose 215 161 354 H Test 06/16/16 00:28 06/16/16 06:04 06/16/16 06:57 Bedside Glucose 241 H 162 Anion Gap 14 Basophils # 0.0 Basophils % 0.4 Blood Morphology Comment Blood Urea Nitrogen 37 H Calcium Level 8.2 L Carbon Dioxide Level 26 Chloride Level 106 Creatinine 2.00 H Eosinophils # 0.1 Eosinophils % 1.9 Glucose Level 129 # Hematocrit 32.7 L Hemoglobin 10.8 L Lymphocytes # 1.9 Lymphocytes % 26.7 Magnesium Level 2.1 Mean Corpuscular Hemoglobin 32.2 Mean Corpuscular Hemoglobin Concent 33.0 Mean Corpuscular Volume 97.5 Mean Platelet Volume 9.2 Monocytes # 0.7 Monocytes % 10.2 Neutrophils # 4.2 Neutrophils % 60.8 Nucleated Red Blood Cells # 0.0 Nucleated Red Blood Cells % 0.0 Phosphorus Level 4.8 Platelet Count 197 Potassium Level 4.5 Red Blood Count 3.36 L Red Cell Distribution Width 17.0 H Sodium Level 141 White Blood Count 7.0 # Medications Medications Current Medications Aspirin (Halfprin) 81 mg DAILY PO Last administered on 06/16/16 09:37; Admin Dose 81 MG; Start 06/10/16 at 09:00 Gabapentin (Neurontin) 600 mg TID PO Last administered on 06/16/16 09:38; Admin Dose 600 MG; Start 06/09/16 at 21:00 Miscellaneous Medication (Bystolic) 20 mg DAILY PO Last administered on 09:37; Admin Dose 20 MG; Start 06/10/16 at 09:00 Pregabalin (Lyrica) 150 mg QHS PO Last administered on 06/15/16 20:56; Admin Dose 150 MG; Start 06/09/16 at 21:00 Valacyclovir HCl (Valtrex) 1,000 mg BID PO Last administered on 06/16/16 09:36 ; Admin Dose 1,000 MG; Start 06/09/16 at 21:00 Miscellaneous Information 1 ea NOTE XX ; Start 06/09/16 at 18:30 Glucose (Glutose) 15 gm Q15M PRN PO DECREASED GLUCOSE; Start 06/09/16 at 18:30 Glucose (Glutose) 22.5 gm Q15M PRN PO DECREASED GLUCOSE; Start 06/09/16 at 18: 30 Dextrose (D50w Syringe) 25 ml Q15M PRN IV DECREASED GLUCOSE; Start 06/09/16 at 18:30 Dextrose (D50w Syringe) 50 ml Q15M PRN IV DECREASED GLUCOSE; Start 06/09/16 at 18:30 Glucagon (Glucagen) 1 mg Q15M PRN IM DECREASED GLUCOSE; Start 06/09/16 at 18:30 Glucose (Glutose) 15 gm Q15M PRN BUCCAL DECREASED GLUCOSE; Start 06/09/16 at 18 :30 Amlodipine Besylate (Norvasc) 10 mg DAILY PO Last administered on 06/16/16 09: 38; Admin Dose 10 MG; Start 06/09/16 at 20:30 Hydromorphone HCl (Dilaudid) 0.5 mg Q4H PRN IV PAIN Last administered on 00:21; Admin Dose 0.5 MG; Start 06/10/16 at 02:30 Methyldopa (Aldomet) 500 mg BID PO Last administered on 06/16/16 09:37; Admin Dose 500 MG; Start 06/10/16 at 02:30 Pantoprazole (Protonix Tab) 40 mg DAILY@06 PO Last administered on 06/16/16 06 :04; Admin Dose 40 MG; Start 06/11/16 at 06:00 Enoxaparin Sodium (Lovenox) 30 mg DAILY SC Last administered on 06/16/16 09:46 ; Admin Dose 30 MG; Start 06/11/16 at 09:00 Clonidine (Catapres) 0.2 mg Q6H PRN PO SBP above 160 Last administered on 12:02; Admin Dose 0.2 MG; Start 06/10/16 at 12:17 Hydralazine HCl (Apresoline) 10 mg Q4H PRN IV SBP >170 Last administered on 00:24; Admin Dose 10 MG; Start 06/10/16 at 15:00 Furosemide (Lasix) 20 mg DAILY PO Last administered on 06/16/16 09:38; Admin Dose 20 MG; Start 06/11/16 at 09:00 Lorazepam (Ativan) 0.5 mg HS PO Last administered on 06/15/16 00:15; Admin Dose 0.5 MG; Start 06/11/16 at 22:00 Bethanechol Chloride (Urecholine) 25 mg TID PO Last administered on 06/16/16 09:38; Admin Dose 25 MG; Start 06/13/16 at 13:00 Hydralazine HCl (Apresoline) 50 mg Q8H PO Last administered on 06/16/16 07:02 ; Admin Dose 50 MG; Start 06/15/16 at 15:00 Linagliptin (Tradjenta) 5 mg DAILY PO Last administered on 06/16/16 09:38; Admin Dose 5 MG; Start 06/16/16 at 09:00 Insulin Glargine (Lantus) 36 unit DAILY@20 SC Last administered on 06/15/16 21 :01; Admin Dose 36 UNIT; Start 06/15/16 at 20:00 Capsaicin (Theragen) 1 applic QID TOP Last administered on 06/15/16 20:56; Admin Dose 1 APPLIC; Start 06/15/16 at 21:00 Lisinopril (Zestril) 10 mg BID PO Last administered on 06/16/16 09:39; Admin Dose 10 MG; Start 06/16/16 at 09:00 SHARLA SOUSA MD Jun 16, 2016 10:16
--- NOTE | 2016-06-16 11:12 | PN ---
DATE: 06/16/2016 SUBJECTIVE: The patient is lethargic this morning, but arousable. No acute events noted. No hemop tysis, hematemesis or hematochezia. OBJECTIVE: VITAL SIGNS: Blood pressure 150/75, respirations 19, pulse 58, temperature 97.5. HEENT: Head is normocephalic. NECK: Supple. HEART: Regular rate. LUNGS: Show diminished breath sounds at the base. ABDOMEN: Soft, nontender to palpation, no rebound or guarding. EXTREMITIES: Negative for clubbing, cyanosis. Trace edema. DERMATOLOGIC: No rashes. MUSCULOSKELETAL: No joint effusions. NEUROLOGIC: No change in exam. LABORATORY DATA: Shows white count 7.0, hemoglobin 10.8, hematocrit 32.7, platelet count is 197,000 . Sodium 141, potassium chloride 106, BUN 37, creatinine 2.0. ASSESSMENT AND PLAN: 1. Nonoliguric acute kidney injury on top of chronic kidney disease, with baseline creatinine 1.4 t o 1.5 mg/dL. The etiology of acute kidney injury is multifactorial. Renal function is currently sta bilized, back to baseline. We will up-titrate lisinopril, as the patient remains hypertensive, ben tor renal function closely. 2. Urinary retention, improved. Continue medical management. Follow up with Dr. Briceno. 3. Right ovarian cystic mass, concerning for possible neoplasm. The patient has been evaluated by Dr. Hunt for possible surgery. We will consider surgery once the patient is clinically optimize d 4. Acute decompensated diastolic heart failure. The patient is clinically improving. Continue diu retic regimen. Follow up with Cardiology. 5. Hypertension. Blood pressure remains elevated. Medications have been adjusted. We will up tit rate lisinopril 20 mg b.i.d. We will continue other blood pressure medications, monitor closely. 6. Anemia. Continue to monitor hemoglobin and hematocrit levels. 8. Diabetes. The patient has been seen by spring fitter, Dr. Oconnor. I greatly appreciate his help with management. Follow up recommendations. 9. Coronary artery disease, status post coronary artery bypass graft. Continue medical management. 10. History of chronic kidney disease stage IV. Etiology is multifactorial secondary to diabetes a nd hypertension. The patient's renal function is currently at baseline. Continue disease factor mo dification. 11. Morbid obesity. Continue dietary modification. 12. Continue statin therapy. 13. History of sleep apnea. Continue to monitor. 14. Peripheral vascular disease. Continue current medical management. 15. Neuropathy. Continue Lyrica. 16. Debility. Continue PT, OT. 17. Gastrointestinal and deep venous thrombosis prophylaxis. Continue proton pump inhibitor and se quential leg squeezers and Lovenox. Dictated By: CRISTA GAINES/BIRGIT Conf#: [id number] DID#: [id number]
--- NOTE | 2016-06-16 11:41 | CONS ---
Date/Time of Note Date/Time of Note DATE: 06/16/16 TIME: 11:36 Assessment/Plan Assessment/Plan Additional Assessment/Plan Assessment and recommendations; next 1. Patient admitted with acute urinary retention. CT imaging of abdomen reveals pelvic mass it is unclear the etiology of it possibly malignant. 2. Underlying multiple comorbidities; likely underlying sleep apnea, CHF, coronary artery disease, diabetes, underlying COPD. 3. ABG was reviewed from yesterday which is showing mild respiratory alkalosis with hypoxemia. 4. History of renal insufficiency with improved serum creatinine from today. Continue current treatment. Patient being followed by the emergency planning and response manager. A mini laparotomy is being planned. The risk of surgery needs to be discussed with the patient's daughter. Operation does pose a significant risk however the risk of undiagnosed ovarian malignancy with the potential of metastasis certainly outweighs the risk of surgery. If the patient does undergo surgery, we would happy to assist postoperatively. please reconsult in that situation. We will sign off for now. Thanks for the referral. Consultation Date/Type/Reason Admit Date/Time Jun 09, 2016 at 12:22 Initial Consult Date 06/10/16 Type of Consultation: Pulmonary Referring Provider: SHARLA SOUSA MD 24 HR Interval Summary Free Text/Dictation Patient condition is stable. Denies any chest pain, fever, chills. Denies any abdominal pain ,nausea, vomiting. General examination; elderly lady currently in no distress awake and alert. Exam/Review of Systems Vital Signs Vitals Vital Signs Date Time Temp Pulse Resp B/P Pulse Ox O2 Delivery O2 Flow Rate FiO2 06/16/16 10:05 Nasal Cannula 2.0 06/16/16 07:52 97.5 58 19 150/75 06/15/16 21:39 94 21 Intake and Output 06/15/16 06/15/16 06/16/16 15:00 23:00 07:00 Intake Total 500 ml Output Total 750 ml Balance -250 ml Exam H EENT examination; supple neck, JVD difficult to see because of short neck. No thyromegaly. Pharynx is clear. Chest examination; diminished but clear breath sounds bilaterally. S1-S2 audible, no murmurs. Regular rhythm. There is a well-healed sternal scar. Abdomen examination; soft, protuberant. Nontender. Bowel sounds audible. Extremity examination; no peripheral edema. 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 Results Result Diagram: 06/16/16 0604 06/16/16 0604 Results 24 hrs Laboratory Tests Test 06/15/16 16:27 06/15/16 20:49 06/16/16 00:28 06/16/16 06:04 Bedside Glucose 161 354 H 241 H Anion Gap 14 Basophils # 0.0 Basophils % 0.4 Blood Morphology Comment Blood Urea Nitrogen 37 H Calcium Level 8.2 L Carbon Dioxide Level 26 Chloride Level 106 Creatinine 2.00 H Eosinophils # 0.1 Eosinophils % 1.9 Glucose Level 129 # Hematocrit 32.7 L Hemoglobin 10.8 L Lymphocytes # 1.9 Lymphocytes % 26.7 Magnesium Level 2.1 Mean Corpuscular Hemoglobin 32.2 Mean Corpuscular Hemoglobin Concent 33.0 Mean Corpuscular Volume 97.5 Mean Platelet Volume 9.2 Monocytes # 0.7 Monocytes % 10.2 Neutrophils # 4.2 Neutrophils % 60.8 Nucleated Red Blood Cells # 0.0 Nucleated Red Blood Cells % 0.0 Phosphorus Level 4.8 Platelet Count 197 Potassium Level 4.5 Red Blood Count 3.36 L Red Cell Distribution Width 17.0 H Sodium Level 141 White Blood Count 7.0 # Test 06/16/16 06:57 Bedside Glucose 162 Medications Medications Current Medications Aspirin (Halfprin) 81 mg DAILY PO Last administered on 06/16/16 09:37; Admin Dose 81 MG; Start 06/10/16 at 09:00 Gabapentin (Neurontin) 600 mg TID PO Last administered on 06/16/16 09:38; Admin Dose 600 MG; Start 06/09/16 at 21:00 Miscellaneous Medication (Bystolic) 20 mg DAILY PO Last administered on 09:37; Admin Dose 20 MG; Start 06/10/16 at 09:00 Pregabalin (Lyrica) 150 mg QHS PO Last administered on 06/15/16 20:56; Admin Dose 150 MG; Start 06/09/16 at 21:00 Valacyclovir HCl (Valtrex) 1,000 mg BID PO Last administered on 06/16/16 09:36 ; Admin Dose 1,000 MG; Start 06/09/16 at 21:00 Miscellaneous Information 1 ea NOTE XX ; Start 06/09/16 at 18:30 Glucose (Glutose) 15 gm Q15M PRN PO DECREASED GLUCOSE; Start 06/09/16 at 18:30 Glucose (Glutose) 22.5 gm Q15M PRN PO DECREASED GLUCOSE; Start 06/09/16 at 18: 30 Dextrose (D50w Syringe) 25 ml Q15M PRN IV DECREASED GLUCOSE; Start 06/09/16 at 18:30 Dextrose (D50w Syringe) 50 ml Q15M PRN IV DECREASED GLUCOSE; Start 06/09/16 at 18:30 Glucagon (Glucagen) 1 mg Q15M PRN IM DECREASED GLUCOSE; Start 06/09/16 at 18:30 Glucose (Glutose) 15 gm Q15M PRN BUCCAL DECREASED GLUCOSE; Start 06/09/16 at 18 :30 Amlodipine Besylate (Norvasc) 10 mg DAILY PO Last administered on 06/16/16 09: 38; Admin Dose 10 MG; Start 06/09/16 at 20:30 Hydromorphone HCl (Dilaudid) 0.5 mg Q4H PRN IV PAIN Last administered on 00:21; Admin Dose 0.5 MG; Start 06/10/16 at 02:30 Methyldopa (Aldomet) 500 mg BID PO Last administered on 06/16/16 09:37; Admin Dose 500 MG; Start 06/10/16 at 02:30 Pantoprazole (Protonix Tab) 40 mg DAILY@06 PO Last administered on 06/16/16 06 :04; Admin Dose 40 MG; Start 06/11/16 at 06:00 Enoxaparin Sodium (Lovenox) 30 mg DAILY SC Last administered on 06/16/16 09:46 ; Admin Dose 30 MG; Start 06/11/16 at 09:00 Clonidine (Catapres) 0.2 mg Q6H PRN PO SBP above 160 Last administered on 12:02; Admin Dose 0.2 MG; Start 06/10/16 at 12:17 Hydralazine HCl (Apresoline) 10 mg Q4H PRN IV SBP >170 Last administered on 00:24; Admin Dose 10 MG; Start 06/10/16 at 15:00 Furosemide (Lasix) 20 mg DAILY PO Last administered on 06/16/16 09:38; Admin Dose 20 MG; Start 06/11/16 at 09:00 Lorazepam (Ativan) 0.5 mg HS PO Last administered on 06/15/16 00:15; Admin Dose 0.5 MG; Start 06/11/16 at 22:00 Bethanechol Chloride (Urecholine) 25 mg TID PO Last administered on 06/16/16 09:38; Admin Dose 25 MG; Start 06/13/16 at 13:00 Hydralazine HCl (Apresoline) 50 mg Q8H PO Last administered on 06/16/16 07:02 ; Admin Dose 50 MG; Start 06/15/16 at 15:00 Linagliptin (Tradjenta) 5 mg DAILY PO Last administered on 06/16/16 09:38; Admin Dose 5 MG; Start 06/16/16 at 09:00 Insulin Glargine (Lantus) 36 unit DAILY@20 SC Last administered on 06/15/16 21 :01; Admin Dose 36 UNIT; Start 06/15/16 at 20:00 Capsaicin (Theragen) 1 applic QID TOP Last administered on 06/15/16 20:56; Admin Dose 1 APPLIC; Start 06/15/16 at 21:00 Lisinopril (Zestril) 10 mg BID PO Last administered on 06/16/16 09:39; Admin Dose 10 MG; Start 06/16/16 at 09:00 JAYME POP Jun 16, 2016 11:41
[2016-06-16] MEDS ORDERED: BISACODYL (EC) 5 MG TAB PO PRN (14:00)
[2016-06-16] MEDS: DOCUSATE SODIUM 100 MG CAP PO SCH ×2 (14:57→21:05)
[2016-06-16] MEDS ORDERED: LIDOCAINE 5% 35 GM OINT TOP PRN (15:30)
--- NOTE | 2016-06-16 18:07 | CONS ---
Date/Time of Note Date/Time of Note DATE: 06/16/16 TIME: 17:59 Assessment/Plan Assessment/Plan Problems: (1) Type 2 diabetes mellitus with diabetic chronic kidney disease Status: Chronic Comment: BG levels improved today but not quite at goal. Increase Lantus from 36 to 40 qhs and increase Novolog from 18 to 20 qac Qualifiers: Diabetes mellitus halfway insulin use: with termite technician use Chronic kidney disease stage: stage 3 (moderate) Qualified Code: E11.22 - Type 2 diabetes mellitus with stage 3 chronic kidney disease, with long-term current use of insulin (2) Constipation Status: Acute Comment: colace bid and dulcolax prn (3) Type 2 diabetes mellitus with diabetic polyneuropathy Status: Chronic Comment: capsacin not effective. Add lidocaine topical Consultation Date/Type/Reason Admit Date/Time Jun 09, 2016 at 12:22 Initial Consult Date 06/15/16 Type of Consultation: Endocrinology Reason for Consultation [address] Referring Provider: SHARLA SOUSA MD 24 HR Interval Summary Constitutional: no complaints Detailed Summary Respiratory: shortness of breath Cardiovascular: no complaints Gastrointestinal: constipation Genitourinary: no complaints Musculoskeletal: bone/joint pain (pain in BLE), swelling (L wrist edematous) Neurologic: no complaints Exam/Review of Systems Vital Signs Vitals VS - Last 72 Hours, by Label Date Time Temp Pulse Resp B/P Pulse Ox O2 Delivery O2 Flow Rate FiO2 06/16/16 10:05 Nasal Cannula 2.0 06/16/16 07:52 97.5 58 19 150/75 06/16/16 06:52 61 129/74 06/16/16 00:05 140/65 06/15/16 21:39 61 22 94 21 06/15/16 20:12 98.0 61 18 145/60 94 06/15/16 16:00 98.2 65 20 120/63 98 Nasal Cannula 06/15/16 13:21 58 20 98 Nasal Cannula 2.0 06/15/16 12:00 98.3 70 20 155/68 98 Nasal Cannula 06/15/16 08:00 Nasal Cannula 2.0 06/15/16 04:53 80 22 143/67 96 Mechanical Ventilator 2.0 Nasal Cannula 06/15/16 01:50 98.5 80 20 160/70 92 Nasal Cannula 06/15/16 00:45 22 173/80 93 2.0 06/15/16 00:24 98.0 81 22 180/88 90 Room Air 06/14/16 23:30 98.6 80 22 138/80 90 Room Air 06/14/16 20:00 Nasal Cannula 2.0 06/14/16 19:22 98.4 71 18 143/68 94 06/14/16 16:00 74 18 123/76 06/14/16 12:00 72 18 112/72 06/14/16 08:35 98.1 70 18 103/82 90 06/14/16 08:00 Nasal Cannula 2.0 06/13/16 21:50 98.6 63 20 144/65 86 06/13/16 20:40 Nasal Cannula 2.0 Vital Signs Date Time Temp Pulse Resp B/P Pulse Ox O2 Delivery O2 Flow Rate FiO2 06/16/16 10:05 Nasal Cannula 2.0 06/16/16 07:52 97.5 58 19 150/75 06/15/16 21:39 94 21 Intake and Output 06/15/16 06/15/16 06/16/16 15:00 23:00 07:00 Intake Total 500 ml Output Total 750 ml Balance -250 ml Exam Constitutional: alert, obese, oriented Psych: nl mood/affect, no complaints Respiratory: clear to auscultation, normal air movement Cardiovascular: nl pulses, regular rate and rhythm, No edema, No murmurs/extra sounds, No rub Gastrointestinal: bowel sounds, nl liver, spleen, non-tender, soft, No mass, No rebound or guarding Musculoskeletal: nl extremities to inspection, nl gait and stance Extremities: normal pulses, No clubbing, No cyanosis, No edema Neurological: SIDE FRAMER II-XII intact, nl mental status, nl speech, nl strength Additional Comments Bedside Glucose - 72 Hours Test 06/13/16 18:12 06/13/16 20:31 06/14/16 02:15 06/14/16 08:00 Bedside Glucose 256mg/dL (70-220) H 249mg/dL (70-220) H 198mg/dL (70-220) 160mg/dL (70-220) Test 06/14/16 12:12 06/14/16 17:04 06/14/16 20:45 06/15/16 01:38 Bedside Glucose 269mg/dL (70-220) H 189mg/dL (70-220) 209mg/dL (70-220) 294mg/dL (70-220) H Test 06/15/16 08:32 06/15/16 11:33 06/15/16 16:27 06/15/16 20:49 Bedside Glucose 154mg/dL (70-220) 215mg/dL (70-220) 161mg/dL (70-220) 354mg/dL (70-220) H Test 06/16/16 00:28 06/16/16 06:57 06/16/16 12:33 06/16/16 17:08 Bedside Glucose 241mg/dL (70-220) H 162mg/dL (70-220) 194mg/dL (70-220) 235mg/dL (70-220) H Results Result Diagram: 06/16/1604 06/16/16 0604 Results 24 hrs Laboratory Tests Test 06/15/16 20:49 06/16/16 00:28 06/16/16 06:04 06/16/16 06:57 Bedside Glucose 354 H 241 H 162 Anion Gap 14 Basophils # 0.0 Basophils % 0.4 Blood Morphology Comment Blood Urea Nitrogen 37 H Calcium Level 8.2 L Carbon Dioxide Level 26 Chloride Level 106 Creatinine 2.00 H Eosinophils # 0.1 Eosinophils % 1.9 Glucose Level 129 # Hematocrit 32.7 L Hemoglobin 10.8 L Lymphocytes # 1.9 Lymphocytes % 26.7 Magnesium Level 2.1 Mean Corpuscular Hemoglobin 32.2 Mean Corpuscular Hemoglobin Concent 33.0 Mean Corpuscular Volume 97.5 Mean Platelet Volume 9.2 Monocytes # 0.7 Monocytes % 10.2 Neutrophils # 4.2 Neutrophils % 60.8 Nucleated Red Blood Cells # 0.0 Nucleated Red Blood Cells % 0.0 Phosphorus Level 4.8 Platelet Count 197 Potassium Level 4.5 Red Blood Count 3.36 L Red Cell Distribution Width 17.0 H Sodium Level 141 White Blood Count 7.0 # Test 06/16/16 12:33 06/16/16 17:08 Bedside Glucose 194 235 H Medications Medications Current Medications Aspirin (Halfprin) 81 mg DAILY PO Last administered on 06/16/16t 09:37; Admin Dose 81 MG; Start 06/10/16 at 09:00 Gabapentin (Neurontin) 600 mg TID PO Last administered on 06/16/16 14:46; Admin Dose 600 MG; Start 06/09/16 at 21:00 Miscellaneous Medication (Bystolic) 20 mg DAILY PO Last administered on 09:37; Admin Dose 20 MG; Start 06/10/16 at 09:00 Pregabalin (Lyrica) 150 mg QHS PO Last administered on 06/15/16 20:56; Admin Dose 150 MG; Start 06/09/16 at 21:00 Valacyclovir HCl (Valtrex) 1,000 mg BID PO Last administered on 06/16/16 09:36 ; Admin Dose 1,000 MG; Start 06/09/16 at 21:00 Miscellaneous Information 1 ea NOTE XX ; Start 06/09/16 at 18:30 Glucose (Glutose) 15 gm Q15M PRN PO DECREASED GLUCOSE; Start 06/09/16 at 18:30 Glucose (Glutose) 22.5 gm Q15M PRN PO DECREASED GLUCOSE; Start 06/09/16 at 18: 30 Dextrose (D50w Syringe) 25 ml Q15M PRN IV DECREASED GLUCOSE; Start 06/09/16 at 18:30 Dextrose (D50w Syringe) 50 ml Q15M PRN IV DECREASED GLUCOSE; Start 06/09/16 at 18:30 Glucagon (Glucagen) 1 mg Q15M PRN IM DECREASED GLUCOSE; Start 06/09/16 at 18:30 Glucose (Glutose) 15 gm Q15M PRN BUCCAL DECREASED GLUCOSE; Start 06/09/16 at 18 :30 Amlodipine Besylate (Norvasc) 10 mg DAILY PO Last administered on 06/16/16 09: 38; Admin Dose 10 MG; Start 06/09/16 at 20:30 Hydromorphone HCl (Dilaudid) 0.5 mg Q4H PRN IV PAIN Last administered on 00:21; Admin Dose 0.5 MG; Start 06/10/16 at 02:30 Methyldopa (Aldomet) 500 mg BID PO Last administered on 06/16/16 09:37; Admin Dose 500 MG; Start 06/10/16 at 02:30 Pantoprazole (Protonix Tab) 40 mg DAILY@06 PO Last administered on 06/16/16 06 :04; Admin Dose 40 MG; Start 06/11/16 at 06:00 Enoxaparin Sodium (Lovenox) 30 mg DAILY SC Last administered on 06/16/16 09:46 ; Admin Dose 30 MG; Start 06/11/16 at 09:00 Clonidine (Catapres) 0.2 mg Q6H PRN PO SBP above 160 Last administered on 12:02; Admin Dose 0.2 MG; Start 06/10/16 at 12:17 Hydralazine HCl (Apresoline) 10 mg Q4H PRN IV SBP >170 Last administered on 00:24; Admin Dose 10 MG; Start 06/10/16 at 15:00 Furosemide (Lasix) 20 mg DAILY PO Last administered on 06/16/16 09:38; Admin Dose 20 MG; Start 06/11/16 at 09:00 Lorazepam (Ativan) 0.5 mg HS PO Last administered on 06/15/16 00:15; Admin Dose 0.5 MG; Start 06/11/16 at 22:00 Bethanechol Chloride (Urecholine) 25 mg TID PO Last administered on 06/16/16 14:46; Admin Dose 25 MG; Start 06/13/16 at 13:00 Hydralazine HCl (Apresoline) 50 mg Q8H PO Last administered on 06/16/16 14:57 ; Admin Dose 50 MG; Start 06/15/16 at 15:00 Linagliptin (Tradjenta) 5 mg DAILY PO Last administered on 06/16/16 09:38; Admin Dose 5 MG; Start 06/16/16 at 09:00 Capsaicin (Theragen) 1 applic QID TOP Last administered on 06/16/16 16:25; Admin Dose 1 APPLIC; Start 06/15/16 at 21:00 Lisinopril (Zestril) 10 mg BID PO Last administered on 06/16/16 09:39; Admin Dose 10 MG; Start 06/16/16 at 09:00 Insulin Glargine (Lantus) 40 unit DAILY@20 SC ; Start 06/16/16 at 20:00 Lidocaine (Lidocaine 5% Oint) 1 applic TID PRN TOP ITCHING/PAIN; Start at 15:30 Docusate Sodium (Colace) 100 mg BID PO Last administered on 06/16/16t 14:57; Admin Dose 100 MG; Start 06/16/16 at 15:00 Bisacodyl (Dulcolax) 10 mg DAILY PRN PO CONSTIPATION; Start 06/16/16 at 14:00 NICOLLE GONZALES MD Jun 16, 2016 18:06
[2016-06-16] MEDS ORDERED: INSULIN GLARGINE [LANtus] 3 ML PEN SC SCH (20:00)
[2016-06-16] MEDS: LORAZEPAM 0.5 MG TAB PO SCH (21:00)
[2016-06-16] MEDS: PREGABALIN 75 MG CAP PO SCH (21:04)
[2016-06-17] MEDS: PANTOPRAZOLE (EC) 40 MG TAB PO SCH (06:44)
[2016-06-17 07:25] LABS: POTASSIUM 4.9 mmol/L (3.5-5.1)
[2016-06-17 07:27] LABS: CREATININE 1.98 mg/dl (0.44-1.00)
[2016-06-17 07:28] LABS: CALCIUM 7.9 mg/dl (8.4-10.2); MAGNESIUM 2.2 mg/dl (1.7-2.5); PHOSPHORUS 4.4 mg/dl (2.5-4.9)
[2016-06-17] MEDS: ALBUTEROL/IPRATROPIUM (NEB) 3 ML AMP HHN SCH ×3 (08:00→20:08)
[2016-06-17 08:31] VITALS: BP 180/81; RESP 20
[2016-06-17] MEDS: VALACYCLOVIR 500 MG TAB PO SCH ×2 (08:53→21:24)
[2016-06-17] MEDS: FUROSEMIDE 20 MG TAB PO SCH (08:53)
[2016-06-17] MEDS: LINAGLIPTIN 5 MG TABLET PO SCH (08:54)
[2016-06-17] MEDS: DOCUSATE SODIUM 100 MG CAP PO SCH ×2 (08:54→21:26)
[2016-06-17] MEDS: GABAPENTIN 300 MG CAP PO SCH ×3 (08:54→21:24)
[2016-06-17] MEDS: ASPIRIN (EC) 81 MG TAB PO SCH (08:54)
[2016-06-17] MEDS: AMLODIPINE 10 MG TAB PO SCH (08:54)
[2016-06-17] MEDS: METHYLDOPA 500 MG TAB PO SCH ×2 (08:54→21:25)
[2016-06-17] MEDS: BETHANECHOL 25 MG TAB PO SCH ×3 (08:54→21:24)
[2016-06-17] MEDS: LISINOPRIL 10 MG TAB PO SCH (08:55)
[2016-06-17] MEDS: NEBIVOLOL 5 MG TAB PO SCH (08:55)
[2016-06-17] MEDS: ENOXAPARIN 30 MG/0.3 ML SYG SC SCH (08:56)
[2016-06-17] MEDS: INSULIN ASPART [NOVOLOG] 3 ML PEN SC SCH ×7 (08:57→21:37)
[2016-06-17] MEDS: CAPSAICIN 0.025% 60 GM CR TOP SCH ×4 (09:10→21:00)
[2016-06-17 09:35] LABS: BASOPHILS % 0.4 % (0.0-2.0); EOSINOPHILS # 0.1 10^3/ul (0.0-0.5); HEMATOCRIT 33.4 % (37.0-47.0); HEMOGLOBIN 11.1 g/dl (12.0-16.0); LYMPHOCYTES # 1.6 10^3/ul (0.8-2.9); LYMPHOCYTES % 21.4 % (15.0-51.0); MEAN CORPUSCULAR HEMOGLOBIN 32.6 pg (29.0-33.0); MEAN CORPUSCULAR HGB CONC 33.4 g/dl (32.0-37.0); MEAN CORPUSCULAR VOLUME 97.8 fl (82.0-101.0); MEAN PLATELET VOLUME 9.4 fl (7.4-10.4); MONOCYTE # 0.6 10^3/ul (0.3-0.9); MONOCYTES % 8.4 % (0.0-11.0); NEUTROPHIL # 4.9 10^3/ul (1.6-7.5); NEUTROPHILS % 67.8 % (39.0-77.0); PLATELET COUNT 212 10^3/UL (140-440); RED BLOOD COUNT 3.42 10^6/ul (4.20-5.40); RED CELL DISTRIBUTION WIDTH 17.3 % (11.5-14.5); UNCORRECTED WBC 7.3 10^3/ul (4.8-10.8); WHITE BLOOD COUNT 7.3 10^3/ul (4.8-10.8)
[2016-06-17 09:37] LABS: CONDITION 1; LH ANALYZER COMMENTS 1
--- NOTE | 2016-06-17 10:01 | PN ---
DATE: 06/17/2016 SUBJECTIVE: The patient is clinically stable, no acute events overnight. No fevers, chills, nausea , vomiting, no shortness of breath. OBJECTIVE: VITAL SIGNS: Blood pressure is 180/81, respiratory rate 20, pulse 70, temperature 98.5. HEENT: Head is normocephalic. NECK: Supple. HEART: Regular rate. LUNGS: Show diminished breath sounds at the base. ABDOMEN: Soft, nontender to palpation. No rebound or guarding. EXTREMITIES: Negative for clubbing, cyanosis, no edema. DERMATOLOGIC: No rashes. MUSCULOSKELETAL: No joint effusions. NEUROLOGIC: No change in exam. MEDICATIONS: The patient's medications have been reviewed. LABORATORY DATA: Showed sodium 143, potassium 4.9, chloride 107, BUN 39, creatinine 1.98. White co unt 7.0, hemoglobin 10.9, hematocrit 32.7, platelet count is 196. ASSESSMENT AND PLAN: 1. Nonoliguric acute kidney injury on top of chronic kidney disease with baseline creatinine around 1.5 to 2.0 mg/dL. Etiology of acute kidney injury is secondary to hemodynamics. Renal function ap pears to have stabilized. We will continue to up titrate lisinopril, monitor renal function closely . 2. Urinary retention, improved. Continue to monitor. 3. Right ovarian cystic mass, concerning for possible neoplasm. The patient is being evaluated by Mateo neal pending possible surgery once medically optimized. 4. Acute decompensated heart failure, clinically improving, to follow up with Cardiology. 5. Hypertension. Blood pressure remains elevated, but improving. We will continue current medical management. We will up titrate lisinopril 20 mg b.i.d., monitor renal function closely. 6. Anemia. Continue to monitor H and H levels. 7. Diabetes. Continue to monitor. Follow up with manual machinist, Dr. Oconnor. 8. Coronary artery disease. Status post coronary artery bypass grafting. Continue medical manageme nt. 9. History of chronic kidney disease stage IV. Etiology is multifactorial secondary to diabetes, h ypertension. The patient is currently near or at baseline. Will continue disease factor modificati on. 10. Morbid obesity. Continue dietary modification. 11. Sleep apnea. Appreciate pulmonary's evaluation. We will continue supplemental oxygen. 12. Peripheral vascular disease. Continue current treatment plan. 13. Dyslipidemia. Continue statin therapy. 14. Neuropathy. Continue Lyrica. 15. Debility. Continue PT, OT. 16. Gastrointestinal and deep venous thrombosis prophylaxis. Continue proton pump inhibitor. sequ ential leg squeezers and Lovenox. Dictated By: CRISTA GAINES/BIRGIT Conf#: [id number] DID#: [id number]
--- NOTE | 2016-06-17 11:08 | CONS ---
Date/Time of Note Date/Time of Note DATE: 06/17/16 TIME: 11:08 Assessment/Plan Assessment/Plan Chief Complaint/Hosp Course 1. A right ovarian cystic mass. Etiology is unclear, concerning for possible malignancy. ca 125-n AMENDMENT to CT AP 06/12/2016 2:01:08 PM Ethan Villanueva MD Comparison is made with prior CT scan of the abdomen and pelvis dated 11/23/2009. The large right adnexal mass measures 6.7 x 8.8 x 7.4 cm on the current study and measured 3.7 x 4.6 x 4.8 cm on 11/23/2009. MRI PELVIS- Large complex cystic right ovarian mass which in a postmenopausal female is worrisome for an ovarian cystic neoplasm. Multiple uterine masses consistent with a leiomyomatous uterus. SEEN BY GYNEONC-will observe urologic response to medication and surgery definitely an option but requires clearance. Would approach laparoscopic and can do LSH/BSO with minilap and stage if needed. D/W PT AND FAMILY- D/W PT AND FAMILY , CARDIAC AND PULM CLEARANCE- in process 2. Anemia. Continue to monitor hemoglobin and hematocrit levels. + component ACD OBSERVE FOR BLEEDING AND HEMOLYSIS 3. Nonoliguric acute kidney injury on top of chronic kidney disease with a previous baseline renal function around 1.5 to 2 mg/dL. Etiology of acute kidney injury is possibly secondary to urinary retention, obstructive uropathy versus hemodynamics, possible cardiorenal syndrome. The patient's urinalysis shows findings of proteinuria but no pyuria, no hematuria, and a CT scan of the abdomen and pelvis showed no evidence of hydronephrosis. Plan at this point is to check a renal ultrasound. Will repeat UA with microanalysis. Will check urine electrolytes. Will continue supportive care, renally dose medications, avoid nephrotoxins, monitor renal function closely. Clinical albuminuria - PER NEPHROLOGY 4 Urinary retention. Underlying etiology is unclear. The patient is status post Flynn catheter placement with good urinary output. Seen by urology still unable to urinate on intermittent catheterizations URECHOLINE - DOSE INCREASED 5. Acute decompensated diastolic heart failure. The patient noted to have pulmonary congestion, lower extremity edema. The patient is status post Lasix; will continue- PER NEPHRO cardiology F-UP 6. History of coronary artery disease, status post coronary artery bypass graft. Continue current medical management. 7. Diabetes. Will continue Accu-Cheks, insulin sliding scale, continue Lantus. HB A1C- 8.1 8. Chronic kidney disease stage IIIB/IV. Etiology is multifactorial secondary to diabetes, hypertension. The patient is currently in acute kidney injury as stated above. Continue medical management. 9. Morbid obesity. Continue dietary modification. 10. Dyslipidemia. Continue statin therapy. 11. Obstructive sleep apnea. Continue supplemental oxygen. Consider a pulmonary consult for evaluation. 12. Hypertension- POORLY CONTROLLED Continue current blood pressure regimen. Will adjust medications as needed. CARDIOLOGY F-UP 13. History of peripheral vascular disease. Continue current medical management. 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 SEVERE DJD/OA WITH CHRONIC PAIN 16. GI PROBLEMS- WITH ABD PAIN, DIARRHEA/ ALTERNATING WITH CONSTIPATION GI EVAL AND F-UP Problems: Consultation Date/Type/Reason Admit Date/Time Jun 09, 2016 at 12:22 Initial Consult Date 06/09/16 Type of Consultation: [facility] Referring Provider: SHARLA SOUSA MD Exam/Review of Systems Vital Signs Vitals Vital Signs Date Time Temp Pulse Resp B/P Pulse Ox O2 Delivery O2 Flow Rate FiO2 06/17/16 08:31 98.5 70 20 180/81 99 06/16/16 20:21 21 06/16/16 14:00 Nasal Cannula 2.0 Intake and Output 06/16/16 06/16/16 06/17/16 15:00 23:00 07:00 Intake Total 400 ml 400 ml Output Total 800 ml 1500 ml Balance -400 ml -1100 ml Exam Constitutional: alert, oriented Psych: no complaints Head: normocephalic Neck: No jvd Respiratory: clear to auscultation, diminished breath sounds Cardiovascular: regular rate and rhythm, No edema Gastrointestinal: soft Neurological: nl mental status, nl speech Results Result Diagram: 06/17/16 0610 06/17/16 0610 Results 24 hrs Laboratory Tests Test 06/16/16 12:33 06/16/16 17:08 06/16/16 20:57 06/16/16 23:51 Bedside Glucose 194 235 H 206 247 H Test 06/17/16 06:10 06/17/16 08:50 Anion Gap 18 H Basophils # 0.0 Basophils % 0.4 Blood Morphology Comment Blood Urea Nitrogen 39 H Calcium Level 7.9 L Carbon Dioxide Level 23 Chloride Level 107 Creatinine 1.98 H Eosinophils # 0.1 Eosinophils % 2.0 Glucose Level 210 Hematocrit 33.4 L Hemoglobin 11.1 L Lymphocytes # 1.6 Lymphocytes % 21.4 Magnesium Level 2.2 Mean Corpuscular Hemoglobin 32.6 Mean Corpuscular Hemoglobin Concent 33.4 Mean Corpuscular Volume 97.8 Mean Platelet Volume 9.4 Monocytes # 0.6 Monocytes % 8.4 Neutrophils # 4.9 Neutrophils % 67.8 Nucleated Red Blood Cells # 0.0 Nucleated Red Blood Cells % 0.0 Phosphorus Level 4.4 Platelet Count 212 Potassium Level 4.9 Red Blood Count 3.42 L Red Cell Distribution Width 17.3 H Sodium Level 143 White Blood Count 7.3 Bedside Glucose 208 Medications Medications Current Medications Aspirin (Halfprin) 81 mg DAILY PO Last administered on 06/17/16 08:54; Admin Dose 81 MG; Start 06/10/16 at 09:00 Gabapentin (Neurontin) 600 mg TID PO Last administered on 06/17/16 08:54; Admin Dose 600 MG; Start 06/09/16 at 21:00 Miscellaneous Medication (Bystolic) 20 mg DAILY PO Last administered on 08:55; Admin Dose 20 MG; Start 06/10/16 at 09:00 Pregabalin (Lyrica) 150 mg QHS PO Last administered on 06/16/16 21:04; Admin Dose 150 MG; Start 06/09/16 at 21:00 Valacyclovir HCl (Valtrex) 1,000 mg BID PO Last administered on 06/17/16 08:53 ; Admin Dose 1,000 MG; Start 06/09/16 at 21:00 Miscellaneous Information 1 ea NOTE XX ; Start 06/09/16 at 18:30 Glucose (Glutose) 15 gm Q15M PRN PO DECREASED GLUCOSE; Start 06/09/16 at 18:30 Glucose (Glutose) 22.5 gm Q15M PRN PO DECREASED GLUCOSE; Start 06/09/16 at 18: 30 Dextrose (D50w Syringe) 25 ml Q15M PRN IV DECREASED GLUCOSE; Start 06/09/16 at 18:30 Dextrose (D50w Syringe) 50 ml Q15M PRN IV DECREASED GLUCOSE; Start 06/09/16 at 18:30 Glucagon (Glucagen) 1 mg Q15M PRN IM DECREASED GLUCOSE; Start 06/09/16 at 18:30 Glucose (Glutose) 15 gm Q15M PRN BUCCAL DECREASED GLUCOSE; Start 06/09/16 at 18 :30 Amlodipine Besylate (Norvasc) 10 mg DAILY PO Last administered on 06/17/16 08: 54; Admin Dose 10 MG; Start 06/09/16 at 20:30 Hydromorphone HCl (Dilaudid) 0.5 mg Q4H PRN IV PAIN Last administered on 23:57; Admin Dose 0.5 MG; Start 06/10/16 at 02:30 Methyldopa (Aldomet) 500 mg BID PO Last administered on 06/17/16 08:54; Admin Dose 500 MG; Start 06/10/16 at 02:30 Pantoprazole (Protonix Tab) 40 mg DAILY@06 PO Last administered on 06/17/16 06 :44; Admin Dose 40 MG; Start 06/11/16 at 06:00 Enoxaparin Sodium (Lovenox) 30 mg DAILY SC Last administered on 06/17/16 08:56 ; Admin Dose 30 MG; Start 06/11/16 at 09:00 Clonidine (Catapres) 0.2 mg Q6H PRN PO SBP above 160 Last administered on 10:22; Admin Dose 0.2 MG; Start 06/10/16 at 12:17 Hydralazine HCl (Apresoline) 10 mg Q4H PRN IV SBP >170 Last administered on 00:24; Admin Dose 10 MG; Start 06/10/16 at 15:00 Furosemide (Lasix) 20 mg DAILY PO Last administered on 06/17/16 08:53; Admin Dose 20 MG; Start 06/11/16 at 09:00 Lorazepam (Ativan) 0.5 mg HS PO Last administered on 06/15/16 00:15; Admin Dose 0.5 MG; Start 06/11/16 at 22:00 Bethanechol Chloride (Urecholine) 25 mg TID PO Last administered on 06/17/16 08:54; Admin Dose 25 MG; Start 06/13/16 at 13:00 Hydralazine HCl (Apresoline) 50 mg Q8H PO Last administered on 06/17/16 08:53 ; Admin Dose 50 MG; Start 06/15/16 at 15:00 Linagliptin (Tradjenta) 5 mg DAILY PO Last administered on 06/17/16 08:54; Admin Dose 5 MG; Start 06/16/16 at 09:00 Capsaicin (Theragen) 1 applic QID TOP Last administered on 06/17/16 09:10; Admin Dose 1 APPLIC; Start 06/15/16 at 21:00 Insulin Glargine (Lantus) 40 unit DAILY@20 SC Last administered on 06/16/16 21 :07; Admin Dose 40 UNIT; Start 06/16/16 at 20:00 Lidocaine (Lidocaine 5% Oint) 1 applic TID PRN TOP ITCHING/PAIN; Start at 15:30 Docusate Sodium (Colace) 100 mg BID PO Last administered on 06/17/16 08:54; Admin Dose 100 MG; Start 06/16/16 at 15:00 Bisacodyl (Dulcolax) 10 mg DAILY PRN PO CONSTIPATION; Start 06/16/16 at 14:00 Lisinopril (Zestril) 20 mg BID PO ; Start 06/17/16 at 21:00 SHARLA SOUSA MD Jun 17, 2016 11:08
--- NOTE | 2016-06-17 11:26 | CONS ---
Date/Time of Note Date/Time of Note DATE: 06/17/16 TIME: 11:25 Assessment/Plan Assessment/Plan Chief Complaint/Hosp Course HTN urgency: BPs overall better Acute on chronic diastolic heart failure: EF preserved.~euvolemic Ovarian mass: Being evaluated by heme/onc. Likely laparoscopic surgery Urinary retention: required martinez. now better Acute on chronic renal failure: improved after obstruction resolved. Stable h/o CAD s/p CABG DM PVD s/p renal stent -continue amlodipine 10mg, lisinopril 10mg BID -hydralazine 50mg q8h -continue home nebivolol, methyldopa -lasix 20mg PO daily -ok to proceed with surgery from cardiology standpoint -will follow as needed Problems: Consultation Date/Type/Reason Admit Date/Time Jun 09, 2016 at 12:22 Initial Consult Date 06/10/16 Type of Consultation: Cardiology Referring Provider: SHARLA SOUSA MD 24 HR Interval Summary Free Text/Dictation No o/n events. BP elevated in am, improved throughout the day after meds. Exam/Review of Systems Vital Signs Vitals Vital Signs Date Time Temp Pulse Resp B/P Pulse Ox O2 Delivery O2 Flow Rate FiO2 06/17/16 08:31 98.5 70 20 180/81 99 06/16/16 20:21 21 06/16/16 14:00 Nasal Cannula 2.0 Intake and Output 06/16/16 06/16/16 06/17/16 15:00 23:00 07:00 Intake Total 400 ml 400 ml Output Total 800 ml 1500 ml Balance -400 ml -1100 ml Exam Constitutional: alert, oriented Psych: no complaints Head: normocephalic Neck: No jvd Respiratory: clear to auscultation Cardiovascular: regular rate and rhythm, No systolic murmur Gastrointestinal: non-tender, soft Neurological: nl mental status, nl speech Results Result Diagram: 06/17/16 0610 06/17/16 0610 Results 24 hrs Laboratory Tests Test 06/16/16 12:33 06/16/16 17:08 06/16/16 20:57 06/16/16 23:51 Bedside Glucose 194 235 H 206 247 H Test 06/17/16 06:10 06/17/16 08:50 Anion Gap 18 H Basophils # 0.0 Basophils % 0.4 Blood Morphology Comment Blood Urea Nitrogen 39 H Calcium Level 7.9 L Carbon Dioxide Level 23 Chloride Level 107 Creatinine 1.98 H Eosinophils # 0.1 Eosinophils % 2.0 Glucose Level 210 Hematocrit 33.4 L Hemoglobin 11.1 L Lymphocytes # 1.6 Lymphocytes % 21.4 Magnesium Level 2.2 Mean Corpuscular Hemoglobin 32.6 Mean Corpuscular Hemoglobin Concent 33.4 Mean Corpuscular Volume 97.8 Mean Platelet Volume 9.4 Monocytes # 0.6 Monocytes % 8.4 Neutrophils # 4.9 Neutrophils % 67.8 Nucleated Red Blood Cells # 0.0 Nucleated Red Blood Cells % 0.0 Phosphorus Level 4.4 Platelet Count 212 Potassium Level 4.9 Red Blood Count 3.42 L Red Cell Distribution Width 17.3 H Sodium Level 143 White Blood Count 7.3 Bedside Glucose 208 Medications Medications Current Medications Aspirin (Halfprin) 81 mg DAILY PO Last administered on 06/17/16 08:54; Admin Dose 81 MG; Start 06/10/16 at 09:00 Gabapentin (Neurontin) 600 mg TID PO Last administered on 06/17/16 08:54; Admin Dose 600 MG; Start 06/09/16 at 21:00 Miscellaneous Medication (Bystolic) 20 mg DAILY PO Last administered on 08:55; Admin Dose 20 MG; Start 06/10/16 at 09:00 Pregabalin (Lyrica) 150 mg QHS PO Last administered on 06/16/16 21:04; Admin Dose 150 MG; Start 06/09/16 at 21:00 Valacyclovir HCl (Valtrex) 1,000 mg BID PO Last administered on 06/17/16 08:53 ; Admin Dose 1,000 MG; Start 06/09/16 at 21:00 Miscellaneous Information 1 ea NOTE XX ; Start 06/09/16 at 18:30 Glucose (Glutose) 15 gm Q15M PRN PO DECREASED GLUCOSE; Start 06/09/16 at 18:30 Glucose (Glutose) 22.5 gm Q15M PRN PO DECREASED GLUCOSE; Start 06/09/16 at 18: 30 Dextrose (D50w Syringe) 25 ml Q15M PRN IV DECREASED GLUCOSE; Start 06/09/16 at 18:30 Dextrose (D50w Syringe) 50 ml Q15M PRN IV DECREASED GLUCOSE; Start 06/09/16 at 18:30 Glucagon (Glucagen) 1 mg Q15M PRN IM DECREASED GLUCOSE; Start 06/09/16 at 18:30 Glucose (Glutose) 15 gm Q15M PRN BUCCAL DECREASED GLUCOSE; Start 06/09/16 at 18 :30 Amlodipine Besylate (Norvasc) 10 mg DAILY PO Last administered on 06/17/16 08: 54; Admin Dose 10 MG; Start 06/09/16 at 20:30 Hydromorphone HCl (Dilaudid) 0.5 mg Q4H PRN IV PAIN Last administered on 23:57; Admin Dose 0.5 MG; Start 06/10/16 at 02:30 Methyldopa (Aldomet) 500 mg BID PO Last administered on 06/17/16 08:54; Admin Dose 500 MG; Start 06/10/16 at 02:30 Pantoprazole (Protonix Tab) 40 mg DAILY@06 PO Last administered on 06/17/16 06 :44; Admin Dose 40 MG; Start 06/11/16 at 06:00 Enoxaparin Sodium (Lovenox) 30 mg DAILY SC Last administered on 06/17/16 08:56 ; Admin Dose 30 MG; Start 06/11/16 at 09:00 Clonidine (Catapres) 0.2 mg Q6H PRN PO SBP above 160 Last administered on 10:22; Admin Dose 0.2 MG; Start 06/10/16 at 12:17 Hydralazine HCl (Apresoline) 10 mg Q4H PRN IV SBP >170 Last administered on 00:24; Admin Dose 10 MG; Start 06/10/16 at 15:00 Furosemide (Lasix) 20 mg DAILY PO Last administered on 06/17/16 08:53; Admin Dose 20 MG; Start 06/11/16 at 09:00 Lorazepam (Ativan) 0.5 mg HS PO Last administered on 06/15/16 00:15; Admin Dose 0.5 MG; Start 06/11/16 at 22:00 Bethanechol Chloride (Urecholine) 25 mg TID PO Last administered on 06/17/16 08:54; Admin Dose 25 MG; Start 06/13/16 at 13:00 Hydralazine HCl (Apresoline) 50 mg Q8H PO Last administered on 06/17/16 08:53 ; Admin Dose 50 MG; Start 06/15/16 at 15:00 Linagliptin (Tradjenta) 5 mg DAILY PO Last administered on 06/17/16 08:54; Admin Dose 5 MG; Start 06/16/16 at 09:00 Capsaicin (Theragen) 1 applic QID TOP Last administered on 06/17/16 09:10; Admin Dose 1 APPLIC; Start 06/15/16 at 21:00 Insulin Glargine (Lantus) 40 unit DAILY@20 SC Last administered on 06/16/16 21 :07; Admin Dose 40 UNIT; Start 06/16/16 at 20:00 Lidocaine (Lidocaine 5% Oint) 1 applic TID PRN TOP ITCHING/PAIN; Start at 15:30 Docusate Sodium (Colace) 100 mg BID PO Last administered on 06/17/16 08:54; Admin Dose 100 MG; Start 06/16/16 at 15:00 Bisacodyl (Dulcolax) 10 mg DAILY PRN PO CONSTIPATION; Start 06/16/16 at 14:00 Lisinopril (Zestril) 20 mg BID PO ; Start 06/17/16 at 21:00 AMISHA NIETO Jun 17, 2016 11:26
[2016-06-17 11:41] VITALS: BP 137/70
[2016-06-17] MEDS ORDERED: GUAIFENESIN/DM 5ML CUP PO PRN (17:30)
--- NOTE | 2016-06-17 18:23 | CONS ---
Date/Time of Note Date/Time of Note DATE: 06/17/16 TIME: 18:20 Assessment/Plan Assessment/Plan Problems: (1) Type 2 diabetes mellitus with diabetic polyneuropathy Status: Chronic Comment: Glucose remains above goal. Increase insulin again, novolog from 20 to 28 qac and lantus from 40 to 56 qhs. Reeval tomorrow. Consultation Date/Type/Reason Admit Date/Time Jun 09, 2016 at 12:22 Initial Consult Date 06/15/16 Type of Consultation: Endocrinology Reason for Consultation [id number] Referring Provider: SHARLA SOUSA MD 24 HR Interval Summary Constitutional: no complaints Detailed Summary Respiratory: no complaints Cardiovascular: edema (LUE) Gastrointestinal: constipation (small BM w/ new meds) Genitourinary: no complaints Musculoskeletal: no complaints Neurologic: no complaints Exam/Review of Systems Vital Signs Vitals VS - Last 72 Hours, by Label Date Time Temp Pulse Resp B/P Pulse Ox O2 Delivery O2 Flow Rate FiO2 06/17/16 14:18 62 20 94 Nasal Cannula 2.0 06/17/16 11:41 137/70 06/17/16 08:31 98.5 70 20 180/81 99 06/17/16 08:00 62 20 93 Nasal Cannula 2.0 06/17/16 08:00 Nasal Cannula 2.0 06/16/16 22:58 74 129/61 06/16/16 20:21 64 22 90 21 06/16/16 20:14 98.0 62 21 126/64 98 06/16/16 18:34 96 06/16/16 16:00 78 126/74 06/16/16 14:00 64 20 Nasal Cannula 2.0 06/16/16 12:00 75 135/69 06/16/16 10:05 Nasal Cannula 2.0 06/16/16 07:52 97.5 58 19 150/75 06/16/16 06:52 61 129/74 06/16/16 00:05 140/65 06/15/16 21:39 61 22 94 21 06/15/16 20:12 98.0 61 18 145/60 94 06/15/16 16:00 98.2 65 20 120/63 98 Nasal Cannula 06/15/16 13:21 58 20 98 Nasal Cannula 2.0 06/15/16 12:00 98.3 70 20 155/68 98 Nasal Cannula 06/15/16 08:00 Nasal Cannula 2.0 06/15/16 04:53 80 22 143/67 96 Mechanical Ventilator 2.0 Nasal Cannula 06/15/16 01:50 98.5 80 20 160/70 92 Nasal Cannula 06/15/16 00:45 22 173/80 93 2.0 06/15/16 00:24 98.0 81 22 180/88 90 Room Air 06/14/16 23:30 98.6 80 22 138/80 90 Room Air 06/14/16 20:00 Nasal Cannula 2.0 06/14/16 19:22 98.4 71 18 143/68 94 Vital Signs Date Time Temp Pulse Resp B/P Pulse Ox O2 Delivery O2 Flow Rate FiO2 06/17/16 14:18 62 20 94 Nasal Cannula 2.0 06/17/16 11:41 137/70 06/17/16 08:31 98.5 06/16/16 20:21 21 Intake and Output 06/16/16 06/16/16 06/17/16 15:00 23:00 07:00 Intake Total 400 ml 400 ml Output Total 800 ml 1500 ml Balance -400 ml -1100 ml Exam Constitutional: alert, obese, oriented Psych: nl mood/affect, no complaints Respiratory: clear to auscultation, normal air movement Cardiovascular: nl pulses, regular rate and rhythm, No edema, No murmurs/extra sounds, No rub Gastrointestinal: bowel sounds, nl liver, spleen, non-tender, soft, No mass, No rebound or guarding Musculoskeletal: nl extremities to inspection Extremities: normal pulses, No clubbing, No cyanosis, No edema Neurological: STRIPPER SOFT PLASTIC II-XII intact, nl mental status, nl speech, nl strength Additional Comments Bedside Glucose - 72 Hours Test 06/14/16 20:45 06/15/16 01:38 06/15/16 08:32 06/15/16 11:33 Bedside Glucose 209mg/dL (70-220) 294mg/dL (70-220) H 154mg/dL (70-220) 215mg/dL (70-220) Test 06/15/16 16:27 06/15/16 20:49 06/16/16 00:28 06/16/16 06:57 Bedside Glucose 161mg/dL (70-220) 354mg/dL (70-220) H 241mg/dL (70-220) H 162mg/dL (70-220) Test 06/16/16 12:33 06/16/16 17:08 06/16/16 20:57 06/16/16 23:51 Bedside Glucose 194mg/dL (70-220) 235mg/dL (70-220) H 206mg/dL (70-220) 247mg/dL (70-220) H Test 06/17/16 08:50 06/17/16 12:00 06/17/16 17:16 Bedside Glucose 208mg/dL (70-220) 232mg/dL (70-220) H 177mg/dL (70-220) Results Result Diagram: 06/17/1610 06/17/16 0610 Results 24 hrs Laboratory Tests Test 06/16/16 20:57 06/16/16 23:51 06/17/16 06:10 06/17/16 08:50 Bedside Glucose 206 247 H 208 Anion Gap 18 H Basophils # 0.0 Basophils % 0.4 Blood Morphology Comment Blood Urea Nitrogen 39 H Calcium Level 7.9 L Carbon Dioxide Level 23 Chloride Level 107 Creatinine 1.98 H Eosinophils # 0.1 Eosinophils % 2.0 Glucose Level 210 Hematocrit 33.4 L Hemoglobin 11.1 L Lymphocytes # 1.6 Lymphocytes % 21.4 Magnesium Level 2.2 Mean Corpuscular Hemoglobin 32.6 Mean Corpuscular Hemoglobin Concent 33.4 Mean Corpuscular Volume 97.8 Mean Platelet Volume 9.4 Monocytes # 0.6 Monocytes % 8.4 Neutrophils # 4.9 Neutrophils % 67.8 Nucleated Red Blood Cells # 0.0 Nucleated Red Blood Cells % 0.0 Phosphorus Level 4.4 Platelet Count 212 Potassium Level 4.9 Red Blood Count 3.42 L Red Cell Distribution Width 17.3 H Sodium Level 143 White Blood Count 7.3 Test 06/17/16 12:00 06/17/16 17:16 Bedside Glucose 232 H 177 Medications Medications Current Medications Aspirin (Halfprin) 81 mg DAILY PO Last administered on 06/17/16 08:54; Admin Dose 81 MG; Start 06/10/16 at 09:00 Gabapentin (Neurontin) 600 mg TID PO Last administered on 06/17/16 13:26; Admin Dose 600 MG; Start 06/09/16 at 21:00 Miscellaneous Medication (Bystolic) 20 mg DAILY PO Last administered on 08:55; Admin Dose 20 MG; Start 06/10/16 at 09:00 Pregabalin (Lyrica) 150 mg QHS PO Last administered on 06/16/16 21:04; Admin Dose 150 MG; Start 06/09/16 at 21:00 Valacyclovir HCl (Valtrex) 1,000 mg BID PO Last administered on 06/17/16 08:53 ; Admin Dose 1,000 MG; Start 06/09/16 at 21:00 Miscellaneous Information 1 ea NOTE XX ; Start 06/09/16 at 18:30 Glucose (Glutose) 15 gm Q15M PRN PO DECREASED GLUCOSE; Start 06/09/16 at 18:30 Glucose (Glutose) 22.5 gm Q15M PRN PO DECREASED GLUCOSE; Start 06/09/16 at 18: 30 Dextrose (D50w Syringe) 25 ml Q15M PRN IV DECREASED GLUCOSE; Start 06/09/16 at 18:30 Dextrose (D50w Syringe) 50 ml Q15M PRN IV DECREASED GLUCOSE; Start 06/09/16 at 18:30 Glucagon (Glucagen) 1 mg Q15M PRN IM DECREASED GLUCOSE; Start 06/09/16 at 18:30 Glucose (Glutose) 15 gm Q15M PRN BUCCAL DECREASED GLUCOSE; Start 06/09/16 at 18 :30 Amlodipine Besylate (Norvasc) 10 mg DAILY PO Last administered on 06/17/16 08: 54; Admin Dose 10 MG; Start 06/09/16 at 20:30 Hydromorphone HCl (Dilaudid) 0.5 mg Q4H PRN IV PAIN Last administered on 23:57; Admin Dose 0.5 MG; Start 06/10/16 at 02:30 Methyldopa (Aldomet) 500 mg BID PO Last administered on 06/17/16 08:54; Admin Dose 500 MG; Start 06/10/16 at 02:30 Pantoprazole (Protonix Tab) 40 mg DAILY@06 PO Last administered on 06/17/16 06 :44; Admin Dose 40 MG; Start 06/11/16 at 06:00 Enoxaparin Sodium (Lovenox) 30 mg DAILY SC Last administered on 06/17/16 08:56 ; Admin Dose 30 MG; Start 06/11/16 at 09:00 Clonidine (Catapres) 0.2 mg Q6H PRN PO SBP above 160 Last administered on 10:22; Admin Dose 0.2 MG; Start 06/10/16 at 12:17 Hydralazine HCl (Apresoline) 10 mg Q4H PRN IV SBP >170 Last administered on 00:24; Admin Dose 10 MG; Start 06/10/16 at 15:00 Furosemide (Lasix) 20 mg DAILY PO Last administered on 06/17/16 08:53; Admin Dose 20 MG; Start 06/11/16 at 09:00 Lorazepam (Ativan) 0.5 mg HS PO Last administered on 06/15/16 00:15; Admin Dose 0.5 MG; Start 06/11/16 at 22:00 Bethanechol Chloride (Urecholine) 25 mg TID PO Last administered on 06/17/16 13:26; Admin Dose 25 MG; Start 06/13/16 at 13:00 Hydralazine HCl (Apresoline) 50 mg Q8H PO Last administered on 06/17/16 17:19 ; Admin Dose 50 MG; Start 06/15/16 at 15:00 Linagliptin (Tradjenta) 5 mg DAILY PO Last administered on 06/17/16 08:54; Admin Dose 5 MG; Start 06/16/16 at 09:00 Capsaicin (Theragen) 1 applic QID TOP Last administered on 06/17/16 13:38; Admin Dose 1 APPLIC; Start 06/15/16 at 21:00 Lidocaine (Lidocaine 5% Oint) 1 applic TID PRN TOP ITCHING/PAIN; Start at 15:30 Docusate Sodium (Colace) 100 mg BID PO Last administered on 06/17/16 08:54; Admin Dose 100 MG; Start 06/16/16 at 15:00 Bisacodyl (Dulcolax) 10 mg DAILY PRN PO CONSTIPATION; Start 06/16/16 at 14:00 Lisinopril (Zestril) 20 mg BID PO ; Start 06/17/16 at 21:00 Insulin Glargine (Lantus) 56 unit DAILY@20 SC ; Start 06/17/16 at 20:00 Guaifenesin/ Dextromethorphan (Robitussin Dm Liquid Cup) 10 ml Q4H PRN PO COUGH ; Start 06/17/16 at 17:30 NICOLLE GONZALES MD Jun 17, 2016 18:23
[2016-06-17] MEDS ORDERED: INSULIN GLARGINE [LANtus] 3 ML PEN SC SCH (20:00)
[2016-06-17 20:25] VITALS: BP 130/60; RESP 18
--- NOTE | 2016-06-17 20:45 | PN ---
Date/Time of Note Date/Time of Note DATE: 06/17/16 TIME: 20:39 Assessment/Plan VTE Prophylaxis VTE Prophylaxis Intervention: SCD's Lines/Catheters IV C[facility]ter Type (from [facility]): [place] [facility] Urinary Cath still in place: No Assessment/Plan Chief Complaint/Hosp Course Pelvic mass, multiple medical issues, urinary frequency Problems: Assessment/Plan A/P- Clearance appreciated. Will proceed with surgery as soon as OR time and graduate assistant athletic trainer available . Subjective 24 Hr Interval Summary Free Text/Dictation S- Feels about the same and awaits surgery O- Resp- clear CVS- NSR Abd- unchanged Ext NT mod edema A/P- Clearance appreciated. Will proceed with surgery as soon as OR time and graduate assistant athletic trainer available . Exam/Review of Systems Vital Signs Vitals Vital Signs Date Time Temp Pulse Resp B/P Pulse Ox O2 Delivery O2 Flow Rate FiO2 06/17/16 20:25 98.4 73 18 130/60 94 06/17/16 20:09 Nasal Cannula 2.0 21 Intake and Output 06/16/16 06/16/16 06/17/16 15:00 23:00 07:00 Intake Total 400 ml 400 ml Output Total 800 ml 1500 ml Balance -400 ml -1100 ml Results Result Diagram: 06/17/16 0610 06/17/16 0610 Results 24 hrs Laboratory Tests Test 06/16/16 20:57 06/16/16 23:51 06/17/16 06:10 06/17/16 08:50 Bedside Glucose 206 247 H 208 Anion Gap 18 H Basophils # 0.0 Basophils % 0.4 Blood Morphology Comment Blood Urea Nitrogen 39 H Calcium Level 7.9 L Carbon Dioxide Level 23 Chloride Level 107 Creatinine 1.98 H Eosinophils # 0.1 Eosinophils % 2.0 Glucose Level 210 Hematocrit 33.4 L Hemoglobin 11.1 L Lymphocytes # 1.6 Lymphocytes % 21.4 Magnesium Level 2.2 Mean Corpuscular Hemoglobin 32.6 Mean Corpuscular Hemoglobin Concent 33.4 Mean Corpuscular Volume 97.8 Mean Platelet Volume 9.4 Monocytes # 0.6 Monocytes % 8.4 Neutrophils # 4.9 Neutrophils % 67.8 Nucleated Red Blood Cells # 0.0 Nucleated Red Blood Cells % 0.0 Phosphorus Level 4.4 Platelet Count 212 Potassium Level 4.9 Red Blood Count 3.42 L Red Cell Distribution Width 17.3 H Sodium Level 143 White Blood Count 7.3 Test 06/17/16 12:00 06/17/16 17:16 Bedside Glucose 232 H 177 Medications Medications Current Medications Aspirin (Halfprin) 81 mg DAILY PO Last administered on 06/17/16 08:54; Admin Dose 81 MG; Start 06/10/16 at 09:00 Gabapentin (Neurontin) 600 mg TID PO Last administered on 06/17/16 13:26; Admin Dose 600 MG; Start 06/09/16 at 21:00 Miscellaneous Medication (Bystolic) 20 mg DAILY PO Last administered on 08:55; Admin Dose 20 MG; Start 06/10/16 at 09:00 Pregabalin (Lyrica) 150 mg QHS PO Last administered on 06/16/16 21:04; Admin Dose 150 MG; Start 06/09/16 at 21:00 Valacyclovir HCl (Valtrex) 1,000 mg BID PO Last administered on 06/17/16 08:53 ; Admin Dose 1,000 MG; Start 06/09/16 at 21:00 Miscellaneous Information 1 ea NOTE XX ; Start 06/09/16 at 18:30 Glucose (Glutose) 15 gm Q15M PRN PO DECREASED GLUCOSE; Start 06/09/16 at 18:30 Glucose (Glutose) 22.5 gm Q15M PRN PO DECREASED GLUCOSE; Start 06/09/16 at 18: 30 Dextrose (D50w Syringe) 25 ml Q15M PRN IV DECREASED GLUCOSE; Start 06/09/16 at 18:30 Dextrose (D50w Syringe) 50 ml Q15M PRN IV DECREASED GLUCOSE; Start 06/09/16 at 18:30 Glucagon (Glucagen) 1 mg Q15M PRN IM DECREASED GLUCOSE; Start 06/09/16 at 18:30 Glucose (Glutose) 15 gm Q15M PRN BUCCAL DECREASED GLUCOSE; Start 06/09/16 at 18 :30 Amlodipine Besylate (Norvasc) 10 mg DAILY PO Last administered on 06/17/16 08: 54; Admin Dose 10 MG; Start 06/09/16 at 20:30 Hydromorphone HCl (Dilaudid) 0.5 mg Q4H PRN IV PAIN Last administered on 23:57; Admin Dose 0.5 MG; Start 06/10/16 at 02:30 Methyldopa (Aldomet) 500 mg BID PO Last administered on 06/17/16 08:54; Admin Dose 500 MG; Start 06/10/16 at 02:30 Pantoprazole (Protonix Tab) 40 mg DAILY@06 PO Last administered on 06/17/16 06 :44; Admin Dose 40 MG; Start 06/11/16 at 06:00 Enoxaparin Sodium (Lovenox) 30 mg DAILY SC Last administered on 06/17/16 08:56 ; Admin Dose 30 MG; Start 06/11/16 at 09:00 Clonidine (Catapres) 0.2 mg Q6H PRN PO SBP above 160 Last administered on 10:22; Admin Dose 0.2 MG; Start 06/10/16 at 12:17 Hydralazine HCl (Apresoline) 10 mg Q4H PRN IV SBP >170 Last administered on 00:24; Admin Dose 10 MG; Start 06/10/16 at 15:00 Furosemide (Lasix) 20 mg DAILY PO Last administered on 06/17/16 08:53; Admin Dose 20 MG; Start 06/11/16 at 09:00 Lorazepam (Ativan) 0.5 mg HS PO Last administered on 06/15/16 00:15; Admin Dose 0.5 MG; Start 06/11/16 at 22:00 Bethanechol Chloride (Urecholine) 25 mg TID PO Last administered on 06/17/16 13:26; Admin Dose 25 MG; Start 06/13/16 at 13:00 Hydralazine HCl (Apresoline) 50 mg Q8H PO Last administered on 06/17/16 17:19 ; Admin Dose 50 MG; Start 06/15/16 at 15:00 Linagliptin (Tradjenta) 5 mg DAILY PO Last administered on 06/17/16 08:54; Admin Dose 5 MG; Start 06/16/16 at 09:00 Capsaicin (Theragen) 1 applic QID TOP Last administered on 06/17/16 13:38; Admin Dose 1 APPLIC; Start 06/15/16 at 21:00 Lidocaine (Lidocaine 5% Oint) 1 applic TID PRN TOP ITCHING/PAIN; Start at 15:30 Docusate Sodium (Colace) 100 mg BID PO Last administered on 06/17/16t 08:54; Admin Dose 100 MG; Start 06/16/16 at 15:00 Bisacodyl (Dulcolax) 10 mg DAILY PRN PO CONSTIPATION; Start 06/16/16 at 14:00 Lisinopril (Zestril) 20 mg BID PO ; Start 06/17/16 at 21:00 Insulin Glargine (Lantus) 56 unit DAILY@20 SC ; Start 06/17/16 at 20:00 Guaifenesin/ Dextromethorphan (Robitussin Dm Liquid Cup) 10 ml Q4H PRN PO COUGH ; Start 06/17/16 at 17:30 HARRIS AVELAR MD Jun 17, 2016 20:45
[2016-06-17] MEDS: LORAZEPAM 0.5 MG TAB PO SCH (21:00)
[2016-06-17 21:25] VITALS: BP 140/70; PULSE 77
[2016-06-17] MEDS: LISINOPRIL 20 MG TAB PO SCH (21:26)
[2016-06-17] MEDS: PREGABALIN 75 MG CAP PO SCH (21:27)
[2016-06-17] MEDS: HYDROmorphONE 1 MG/ML SYG IV PRN (23:56)
[2016-06-18] MEDS: ALBUTEROL/IPRATROPIUM (NEB) 3 ML AMP HHN SCH ×4 (04:10→19:57)
[2016-06-18] MEDS: PANTOPRAZOLE (EC) 40 MG TAB PO SCH (04:32)
[2016-06-18] MEDS: HYDROmorphONE 1 MG/ML SYG IV PRN (04:32)
--- NOTE | 2016-06-18 08:37 | PN ---
DATE: 06/18/2016 SUBJECTIVE: The patient is stable. Last night the patient had difficulties sleeping. This morning , the patient is lethargic but arousable, no other acute events noted. No hemoptysis, hematemesis, or hematochezia. OBJECTIVE: VITAL SIGNS: Blood pressure 140/70, respirations are 18, pulse 73, temperature 98.4. HEENT: Head is normocephalic. NECK: Supple. HEART: Regular rate. LUNGS: Show diminished breath sounds at the base. ABDOMEN: Soft, nontender to palpation. No rebound or guarding. EXTREMITIES: Negative for clubbing, cyanosis. Trace edema. Positive venous insufficiency changes. DERMATOLOGIC: No rashes. MUSCULOSKELETAL: No joint effusions. NEUROLOGIC: No change in exam. MEDICATIONS: The patient's medications have been reviewed. LABORATORY DATA: Currently pending. ASSESSMENT AND PLAN: 1. Nonoliguric acute kidney injury on top of chronic kidney disease with baseline creatinine of 1.5 to 2.0 mg/dL. Etiology of acute kidney injury is secondary to hemodynamics. Renal function appear s to have stabilized. Continue current treatment plan, monitor closely. 2. Urinary retention, improved. Continue urecholine. 3. Right ovarian cystic mass concerning for possible neoplasm. The patient was evaluated by Dr. Earl tao. Pending possible surgery. 4. Acute decompensated heart failure. The patient clinically improved. Continue to monitor. Foll ow up with cardiology. 5. Hypertension. Blood pressures are elevated, but improving. Continue current blood pressure reg imen. 6. Anemia. Continue to monitor H and H levels. 7. Diabetes. Continue current insulin regimen. Appreciate Dr. Oconnor who is helping in managemen t. 8. Coronary artery disease. Continue current medical management. 9. History of chronic kidney disease stage IV. Etiology is multifactorial secondary to diabetes, h ypertension. The patient's renal function appears to be at baseline. Continue disease factor modif ications. 10. Morbid obesity. Continue dietary modification. 11. Sleep apnea. The patient has refused CPAP. Continue supplemental oxygen. Appreciate pulmonar y's evaluation. 12. Peripheral vascular disease. Continue current treatment plan. 13. Dyslipidemia. Continue statin therapy. 14. Neuropathy. Continue Lyrica. 15. Debility. Continue PT, OT. 16. Gastrointestinal and deep venous thrombosis prophylaxis. Continue PPIs and sequential leg sque ezers. Dictated By: CRISTA GAINES/BIRGIT Conf#: [id number] DID#: [id number]
[2016-06-18 08:38] VITALS: BP 142/97; RESP 20
[2016-06-18] MEDS: CAPSAICIN 0.025% 60 GM CR TOP SCH ×4 (09:00→21:00)
[2016-06-18] MEDS: ENOXAPARIN 30 MG/0.3 ML SYG SC SCH (09:37)
[2016-06-18] MEDS: INSULIN ASPART [NOVOLOG] 3 ML PEN SC SCH ×7 (09:39→21:29)
[2016-06-18] MEDS: VALACYCLOVIR 500 MG TAB PO SCH ×2 (09:41→21:37)
[2016-06-18] MEDS: METHYLDOPA 500 MG TAB PO SCH ×2 (09:41→21:41)
[2016-06-18] MEDS: DOCUSATE SODIUM 100 MG CAP PO SCH ×2 (09:42→21:43)
[2016-06-18] MEDS: FUROSEMIDE 20 MG TAB PO SCH (09:42)
[2016-06-18] MEDS: LISINOPRIL 20 MG TAB PO SCH ×2 (09:42→21:41)
[2016-06-18] MEDS: BETHANECHOL 25 MG TAB PO SCH ×3 (09:43→21:42)
[2016-06-18] MEDS: AMLODIPINE 10 MG TAB PO SCH (09:43)
[2016-06-18] MEDS: NEBIVOLOL 5 MG TAB PO SCH (09:44)
[2016-06-18] MEDS: GABAPENTIN 300 MG CAP PO SCH ×3 (09:45→21:42)
[2016-06-18] MEDS: LINAGLIPTIN 5 MG TABLET PO SCH (09:45)
[2016-06-18] MEDS: ASPIRIN (EC) 81 MG TAB PO SCH (09:45)
[2016-06-18 10:47] LABS: CREATININE 2.08 mg/dl (0.44-1.00)
[2016-06-18 10:48] LABS: CALCIUM 8.2 mg/dl (8.4-10.2); MAGNESIUM 2.2 mg/dl (1.7-2.5); PHOSPHORUS 4.6 mg/dl (2.5-4.9)
--- NOTE | 2016-06-18 12:05 | CONS ---
Date/Time of Note Date/Time of Note DATE: 06/18/16 TIME: 12:04 Assessment/Plan Assessment/Plan Chief Complaint/Hosp Course 1. A right ovarian cystic mass. Etiology is unclear, concerning for possible malignancy. ca 125-n AMENDMENT to CT AP 06/12/2016 2:01:08 PM Ethan Villanueva MD Comparison is made with prior CT scan of the abdomen and pelvis dated 11/23/2009. The large right adnexal mass measures 6.7 x 8.8 x 7.4 cm on the current study and measured 3.7 x 4.6 x 4.8 cm on 11/23/2009. MRI PELVIS- Large complex cystic right ovarian mass which in a postmenopausal female is worrisome for an ovarian cystic neoplasm. Multiple uterine masses consistent with a leiomyomatous uterus. SEEN BY GYNEONC-will observe urologic response to medication and surgery definitely an option but requires clearance. Would approach laparoscopic and can do LSH/BSO with minilap and stage if needed. D/W PT AND FAMILY- CARDIAC AND PULM CLEARANCE- OBTAINED D/W DR LOWRY 2. Anemia. Continue to monitor hemoglobin and hematocrit levels. + component ACD OBSERVE FOR BLEEDING AND HEMOLYSIS 3. Nonoliguric acute kidney injury on top of chronic kidney disease with a previous baseline renal function around 1.5 to 2 mg/dL. Etiology of acute kidney injury is possibly secondary to urinary retention, obstructive uropathy versus hemodynamics, possible cardiorenal syndrome. The patient's urinalysis shows findings of proteinuria but no pyuria, no hematuria, and a CT scan of the abdomen and pelvis showed no evidence of hydronephrosis. Plan at this point is to check a renal ultrasound. Will repeat UA with microanalysis. Will check urine electrolytes. Will continue supportive care, renally dose medications, avoid nephrotoxins, monitor renal function closely. Clinical albuminuria - PER NEPHROLOGY 4 Urinary retention. Underlying etiology is unclear. The patient is status post Flynn catheter placement with good urinary output. Seen by urology still unable to urinate on intermittent catheterizations URECHOLINE - DOSE INCREASED 5. Acute decompensated diastolic heart failure. The patient noted to have pulmonary congestion, lower extremity edema. The patient is status post Lasix; will continue- PER NEPHRO cardiology F-UP 6. History of coronary artery disease, status post coronary artery bypass graft. Continue current medical management. 7. Diabetes. Will continue Accu-Cheks, insulin sliding scale, continue Lantus. HB A1C- 8.1 8. Chronic kidney disease stage IIIB/IV. Etiology is multifactorial secondary to diabetes, hypertension. The patient is currently in acute kidney injury as stated above. Continue medical management. 9. Morbid obesity. Continue dietary modification. 10. Dyslipidemia. Continue statin therapy. 11. Obstructive sleep apnea. Continue supplemental oxygen. Consider a pulmonary consult for evaluation. 12. Hypertension- POORLY CONTROLLED Continue current blood pressure regimen. Will adjust medications as needed. CARDIOLOGY F-UP 13. History of peripheral vascular disease. Continue current medical management. 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 SEVERE DJD/OA WITH CHRONIC PAIN 16. GI PROBLEMS- WITH ABD PAIN, DIARRHEA/ ALTERNATING WITH CONSTIPATION GI EVAL AND F-UP Problems: Consultation Date/Type/Reason Admit Date/Time Jun 09, 2016 at 12:22 Initial Consult Date 06/09/16 [facility] Referring Provider: SHARLA SUOSA MD 24 HR Interval Summary Free Text/Dictation CLEARED FOR SURGERY Exam/Review of Systems Vital Signs Vitals Vital Signs Date Time Temp Pulse Resp B/P Pulse Ox O2 Delivery O2 Flow Rate FiO2 06/18/16 10:00 67 20 90 Nasal Cannula 1.0 06/18/16 08:38 98.0 142/97 06/17/16 20:09 21 Intake and Output 06/17/16 06/17/16 06/18/16 15:00 23:00 07:00 Intake Total 760 ml 1200 ml Output Total 1200 ml 1100 ml Balance -440 ml 100 ml Exam Constitutional: alert, oriented Psych: no complaints Head: normocephalic Neck: No jvd Respiratory: clear to auscultation, diminished breath sounds Cardiovascular: regular rate and rhythm, No edema Gastrointestinal: soft Neurological: nl mental status, nl speech Results Result Diagram: 06/17/16 0610 06/18/16 0430 Results 24 hrs Laboratory Tests Test 06/17/16 17:16 06/17/16 21:30 06/18/16 00:08 06/18/16 04:30 Bedside Glucose 177 315 H 289 H Anion Gap 18 H Blood Urea Nitrogen 39 H Calcium Level 8.2 L Carbon Dioxide Level 20 L Chloride Level 108 Creatinine 2.08 H Glucose Level 248 H Magnesium Level 2.2 Phosphorus Level 4.6 Potassium Level 5.0 Sodium Level 141 Test 06/18/16 07:58 Bedside Glucose 205 Medications Medications Current Medications Aspirin (Halfprin) 81 mg DAILY PO Last administered on 06/18/16 09:45; Admin Dose 81 MG; Start 06/10/16 at 09:00 Gabapentin (Neurontin) 600 mg TID PO Last administered on 06/18/16 09:45; Admin Dose 600 MG; Start 06/09/16 at 21:00 Miscellaneous Medication (Bystolic) 20 mg DAILY PO Last administered on 09:44; Admin Dose 20 MG; Start 06/10/16 at 09:00 Pregabalin (Lyrica) 150 mg QHS PO Last administered on 06/17/16 21:27; Admin Dose 150 MG; Start 06/09/16 at 21:00 Valacyclovir HCl (Valtrex) 1,000 mg BID PO Last administered on 06/18/16 09:41 ; Admin Dose 1,000 MG; Start 06/09/16 at 21:00 Miscellaneous Information 1 ea NOTE XX ; Start 06/09/16 at 18:30 Glucose (Glutose) 15 gm Q15M PRN PO DECREASED GLUCOSE; Start 06/09/16 at 18:30 Glucose (Glutose) 22.5 gm Q15M PRN PO DECREASED GLUCOSE; Start 06/09/16 at 18: 30 Dextrose (D50w Syringe) 25 ml Q15M PRN IV DECREASED GLUCOSE; Start 06/09/16 at 18:30 Dextrose (D50w Syringe) 50 ml Q15M PRN IV DECREASED GLUCOSE; Start 06/09/16 at 18:30 Glucagon (Glucagen) 1 mg Q15M PRN IM DECREASED GLUCOSE; Start 06/09/16 at 18:30 Glucose (Glutose) 15 gm Q15M PRN BUCCAL DECREASED GLUCOSE; Start 06/09/16 at 18 :30 Amlodipine Besylate (Norvasc) 10 mg DAILY PO Last administered on 06/18/16 09: 43; Admin Dose 10 MG; Start 06/09/16 at 20:30 Hydromorphone HCl (Dilaudid) 0.5 mg Q4H PRN IV PAIN Last administered on 04:32; Admin Dose 0.5 MG; Start 06/10/16 at 02:30 Methyldopa (Aldomet) 500 mg BID PO Last administered on 06/18/16 09:41; Admin Dose 500 MG; Start 06/10/16 at 02:30 Pantoprazole (Protonix Tab) 40 mg DAILY@06 PO Last administered on 06/18/16 04 :32; Admin Dose 40 MG; Start 06/11/16 at 06:00 Enoxaparin Sodium (Lovenox) 30 mg DAILY SC Last administered on 06/18/16 09:37 ; Admin Dose 30 MG; Start 06/11/16 at 09:00 Clonidine (Catapres) 0.2 mg Q6H PRN PO SBP above 160 Last administered on 10:22; Admin Dose 0.2 MG; Start 06/10/16 at 12:17 Hydralazine HCl (Apresoline) 10 mg Q4H PRN IV SBP >170 Last administered on 00:24; Admin Dose 10 MG; Start 06/10/16 at 15:00 Furosemide (Lasix) 20 mg DAILY PO Last administered on 06/18/16 09:42; Admin Dose 20 MG; Start 06/11/16 at 09:00 Lorazepam (Ativan) 0.5 mg HS PO Last administered on 06/15/16 00:15; Admin Dose 0.5 MG; Start 06/11/16 at 22:00 Bethanechol Chloride (Urecholine) 25 mg TID PO Last administered on 06/18/16 09:43; Admin Dose 25 MG; Start 06/13/16 at 13:00 Hydralazine HCl (Apresoline) 50 mg Q8H PO Last administered on 06/18/16 09:42 ; Admin Dose 50 MG; Start 06/15/16 at 15:00 Linagliptin (Tradjenta) 5 mg DAILY PO Last administered on 06/18/16 09:45; Admin Dose 5 MG; Start 06/16/16 at 09:00 Capsaicin (Theragen) 1 applic QID TOP Last administered on 06/17/16 13:38; Admin Dose 1 APPLIC; Start 06/15/16 at 21:00 Lidocaine (Lidocaine 5% Oint) 1 applic TID PRN TOP ITCHING/PAIN; Start at 15:30 Docusate Sodium (Colace) 100 mg BID PO Last administered on 06/18/16 09:42; Admin Dose 100 MG; Start 06/16/16 at 15:00 Bisacodyl (Dulcolax) 10 mg DAILY PRN PO CONSTIPATION; Start 06/16/16 at 14:00 Lisinopril (Zestril) 20 mg BID PO Last administered on 06/18/16 09:42; Admin Dose 20 MG; Start 06/17/16 at 21:00 Insulin Glargine (Lantus) 56 unit DAILY@20 SC Last administered on 06/17/16 21 :35; Admin Dose 56 UNIT; Start 06/17/16 at 20:00 Guaifenesin/ Dextromethorphan (Robitussin Dm Liquid Cup) 10 ml Q4H PRN PO COUGH ; Start 06/17/16 at 17:30 SHARLA SOUSA MD Jun 18, 2016 12:05
[2016-06-18 16:20] VITALS: BP 131/63; PULSE 67
--- NOTE | 2016-06-18 17:47 | CONS ---
Date/Time of Note Date/Time of Note DATE: 06/18/16 TIME: 17:44 Assessment/Plan Assessment/Plan Problems: (1) Type 2 diabetes mellitus with other specified complication Status: Chronic Comment: FS still not at goal. Increase lantus to 64 qhs and Novolog to 32 qac Consultation Date/Type/Reason Admit Date/Time Jun 09, 2016 at 12:22 Initial Consult Date 06/15/16 Type of Consultation: Endocrinology Reason for Consultation [id number] Referring Provider: SHARLA SOUSA MD 24 HR Interval Summary Subjective hx not possible: pt non-verbal (sleeping) Exam/Review of Systems Vital Signs Vitals VS - Last 72 Hours, by Label Date Time Temp Pulse Resp B/P Pulse Ox O2 Delivery O2 Flow Rate FiO2 06/18/16 16:20 67 131/63 06/18/16 10:00 67 20 90 Nasal Cannula 1.0 06/18/16 08:38 98.0 66 20 142/97 93 06/18/16 04:10 68 20 94 Nasal Cannula 2.0 06/18/16 03:03 2.0 06/17/16 21:25 77 140/70 06/17/16 20:25 Nasal Cannula 2.0 06/17/16 20:25 98.4 73 18 130/60 94 06/17/16 20:09 72 20 91 Nasal Cannula 2.0 21 06/17/16 14:18 62 20 94 Nasal Cannula 2.0 06/17/16 11:41 137/70 06/17/16 08:31 98.5 70 20 180/81 99 06/17/16 08:00 62 20 93 Nasal Cannula 2.0 06/17/16 08:00 Nasal Cannula 2.0 06/16/16 22:58 74 129/61 06/16/16 20:21 64 22 90 21 06/16/16 20:14 98.0 62 21 126/64 98 06/16/16 18:34 96 06/16/16 16:00 78 126/74 06/16/16 14:00 64 20 Nasal Cannula 2.0 06/16/16 12:00 75 135/69 06/16/16 10:05 Nasal Cannula 2.0 06/16/16 07:52 97.5 58 19 150/75 06/16/16 06:52 61 129/74 06/16/16 00:05 140/65 06/15/16 21:39 61 22 94 21 06/15/16 20:12 98.0 61 18 145/60 94 Vital Signs Date Time Temp Pulse Resp B/P Pulse Ox O2 Delivery O2 Flow Rate FiO2 06/18/16 16:20 67 131/63 06/18/16 10:00 20 90 Nasal Cannula 1.0 06/18/16 08:38 98.0 06/17/16 20:09 21 Intake and Output 06/17/16 06/17/16 06/18/16 14:59 22:59 06:59 Intake Total 760 ml 1200 ml Output Total 1200 ml 1100 ml Balance -440 ml 100 ml Exam Constitutional: obese, No alert (sleeping) Respiratory: clear to auscultation, normal air movement Cardiovascular: regular rate and rhythm, No edema, No murmurs/extra sounds, No rub Gastrointestinal: bowel sounds, nl liver, spleen, non-tender, soft, No mass, No rebound or guarding Musculoskeletal: nl extremities to inspection Extremities: normal pulses, No clubbing, No cyanosis, No edema Neurological: [employer] II-XII intact, nl mental status, nl speech, nl strength Additional Comments Bedside Glucose - 72 Hours Test 06/15/16 20:49 06/16/16 00:28 06/16/16 06:57 06/16/16 12:33 Bedside Glucose 354mg/dL (70-220) H 241mg/dL (70-220) H 162mg/dL (70-220) 194mg/dL (70-220) Test 06/16/16 17:08 06/16/16 20:57 06/16/16 23:51 06/17/16 08:50 Bedside Glucose 235mg/dL (70-220) H 206mg/dL (70-220) 247mg/dL (70-220) H 208mg/dL (70-220) Test 06/17/16 12:00 06/17/16 17:16 06/17/16 21:30 06/18/16 00:08 Bedside Glucose 232mg/dL (70-220) H 177mg/dL (70-220) 315mg/dL (70-220) H 289mg/dL (70-220) H Test 06/18/16 07:58 06/18/16 12:43 Bedside Glucose 205mg/dL (70-220) 196mg/dL (70-220) Results Result Diagram: 06/17/16 0610 06/18/16 0430 Results 24 hrs Laboratory Tests Test 06/17/16 21:30 06/18/16 00:08 06/18/16 04:30 06/18/16 07:58 Bedside Glucose 315 H 289 H 205 Anion Gap 18 H Blood Urea Nitrogen 39 H Calcium Level 8.2 L Carbon Dioxide Level 20 L Chloride Level 108 Creatinine 2.08 H Glucose Level 248 H Magnesium Level 2.2 Phosphorus Level 4.6 Potassium Level 5.0 Sodium Level 141 Test 06/18/16 12:43 Bedside Glucose 196 Medications Medications Current Medications Aspirin (Halfprin) 81 mg DAILY PO Last administered on 06/18/16 09:45; Admin Dose 81 MG; Start 06/10/16 at 09:00 Gabapentin (Neurontin) 600 mg TID PO Last administered on 06/18/16 12:45; Admin Dose 600 MG; Start 06/09/16 at 21:00 Miscellaneous Medication (Bystolic) 20 mg DAILY PO Last administered on 09:44; Admin Dose 20 MG; Start 06/10/16 at 09:00 Pregabalin (Lyrica) 150 mg QHS PO Last administered on 06/17/16 21:27; Admin Dose 150 MG; Start 06/09/16 at 21:00 Valacyclovir HCl (Valtrex) 1,000 mg BID PO Last administered on 06/18/16 09:41 ; Admin Dose 1,000 MG; Start 06/09/16 at 21:00 Miscellaneous Information 1 ea NOTE XX ; Start 06/09/16 at 18:30 Glucose (Glutose) 15 gm Q15M PRN PO DECREASED GLUCOSE; Start 06/09/16 at 18:30 Glucose (Glutose) 22.5 gm Q15M PRN PO DECREASED GLUCOSE; Start 06/09/16 at 18: 30 Dextrose (D50w Syringe) 25 ml Q15M PRN IV DECREASED GLUCOSE; Start 06/09/16 at 18:30 Dextrose (D50w Syringe) 50 ml Q15M PRN IV DECREASED GLUCOSE; Start 06/09/16 at 18:30 Glucagon (Glucagen) 1 mg Q15M PRN IM DECREASED GLUCOSE; Start 06/09/16 at 18:30 Glucose (Glutose) 15 gm Q15M PRN BUCCAL DECREASED GLUCOSE; Start 06/09/16 at 18 :30 Amlodipine Besylate (Norvasc) 10 mg DAILY PO Last administered on 06/18/16 09: 43; Admin Dose 10 MG; Start 06/09/16 at 20:30 Hydromorphone HCl (Dilaudid) 0.5 mg Q4H PRN IV PAIN Last administered on 04:32; Admin Dose 0.5 MG; Start 06/10/16 at 02:30 Methyldopa (Aldomet) 500 mg BID PO Last administered on 06/18/16 09:41; Admin Dose 500 MG; Start 06/10/16 at 02:30 Pantoprazole (Protonix Tab) 40 mg DAILY@06 PO Last administered on 06/18/16 04 :32; Admin Dose 40 MG; Start 06/11/16 at 06:00 Enoxaparin Sodium (Lovenox) 30 mg DAILY SC Last administered on 06/18/16 09:37 ; Admin Dose 30 MG; Start 06/11/16 at 09:00 Clonidine (Catapres) 0.2 mg Q6H PRN PO SBP above 160 Last administered on 10:22; Admin Dose 0.2 MG; Start 06/10/16 at 12:17 Hydralazine HCl (Apresoline) 10 mg Q4H PRN IV SBP >170 Last administered on 00:24; Admin Dose 10 MG; Start 06/10/16 at 15:00 Furosemide (Lasix) 20 mg DAILY PO Last administered on 06/18/16 09:42; Admin Dose 20 MG; Start 06/11/16 at 09:00 Lorazepam (Ativan) 0.5 mg HS PO Last administered on 06/15/16 00:15; Admin Dose 0.5 MG; Start 06/11/16 at 22:00 Bethanechol Chloride (Urecholine) 25 mg TID PO Last administered on 06/18/16 12:46; Admin Dose 25 MG; Start 06/13/16 at 13:00 Hydralazine HCl (Apresoline) 50 mg Q8H PO Last administered on 06/18/16 09:42 ; Admin Dose 50 MG; Start 06/15/16 at 15:00 Linagliptin (Tradjenta) 5 mg DAILY PO Last administered on 06/18/16 09:45; Admin Dose 5 MG; Start 06/16/16 at 09:00 Capsaicin (Theragen) 1 applic QID TOP Last administered on 06/17/16 13:38; Admin Dose 1 APPLIC; Start 06/15/16 at 21:00 Lidocaine (Lidocaine 5% Oint) 1 applic TID PRN TOP ITCHING/PAIN; Start at 15:30 Docusate Sodium (Colace) 100 mg BID PO Last administered on 06/18/16 09:42; Admin Dose 100 MG; Start 06/16/16 at 15:00 Bisacodyl (Dulcolax) 10 mg DAILY PRN PO CONSTIPATION; Start 06/16/16 at 14:00 Lisinopril (Zestril) 20 mg BID PO Last administered on 06/18/16 09:42; Admin Dose 20 MG; Start 06/17/16 at 21:00 Guaifenesin/ Dextromethorphan (Robitussin Dm Liquid Cup) 10 ml Q4H PRN PO COUGH ; Start 06/17/16 at 17:30 Insulin Glargine (Lantus) 64 unit DAILY@20 SC ; Start 06/18/16 at 20:00 NICOLLE GONZALES MD Jun 18, 2016 17:47
[2016-06-18] MEDS: INSULIN GLARGINE [LANtus] 3 ML PEN SC SCH (21:31)
[2016-06-18] MEDS: LORAZEPAM 0.5 MG TAB PO SCH (21:42)
[2016-06-18] MEDS: PREGABALIN 75 MG CAP PO SCH (21:42)
[2016-06-18 21:43] VITALS: BP 138/63; RESP 20
[2016-06-18 23:55] VITALS: BP 144/67; PULSE 77
[2016-06-19] MEDS: HYDROmorphONE 1 MG/ML SYG IV PRN (01:03)
[2016-06-19 05:42] VITALS: BP 134/69; PULSE 77; RESP 18
[2016-06-19 05:55] LABS: POTASSIUM 5.4 mmol/L (3.5-5.1)
[2016-06-19 05:58] LABS: CREATININE 2.46 mg/dl (0.44-1.00)
[2016-06-19 05:59] LABS: CALCIUM 8.5 mg/dl (8.4-10.2); MAGNESIUM 2.3 mg/dl (1.7-2.5)
[2016-06-19] MEDS: PANTOPRAZOLE (EC) 40 MG TAB PO SCH (06:21)
[2016-06-19 07:00] VITALS: BP 149/64; RESP 20
[2016-06-19] MEDS: ALBUTEROL/IPRATROPIUM (NEB) 3 ML AMP HHN SCH ×3 (08:18→20:18)
[2016-06-19] MEDS: METHYLDOPA 500 MG TAB PO SCH ×2 (08:39→20:46)
[2016-06-19] MEDS: VALACYCLOVIR 500 MG TAB PO SCH ×2 (08:39→20:45)
[2016-06-19] MEDS: GABAPENTIN 300 MG CAP PO SCH ×3 (08:39→20:46)
[2016-06-19] MEDS: NEBIVOLOL 5 MG TAB PO SCH (08:42)
[2016-06-19] MEDS: BETHANECHOL 25 MG TAB PO SCH ×3 (08:42→20:44)
[2016-06-19] MEDS: ASPIRIN (EC) 81 MG TAB PO SCH (08:42)
[2016-06-19] MEDS: AMLODIPINE 10 MG TAB PO SCH (08:42)
[2016-06-19] MEDS: FUROSEMIDE 20 MG TAB PO SCH (08:43)
[2016-06-19] MEDS: LINAGLIPTIN 5 MG TABLET PO SCH (08:43)
[2016-06-19] MEDS: DOCUSATE SODIUM 100 MG CAP PO SCH ×2 (08:43→20:44)
[2016-06-19] MEDS: ENOXAPARIN 30 MG/0.3 ML SYG SC SCH (08:45)
[2016-06-19] MEDS: INSULIN ASPART [NOVOLOG] 3 ML PEN SC SCH ×7 (08:46→21:00)
[2016-06-19] MEDS: CAPSAICIN 0.025% 60 GM CR TOP SCH ×4 (08:46→21:00)
--- NOTE | 2016-06-19 09:23 | PN ---
DATE: 06/19/2016 SUBJECTIVE: The patient complains about nasal congestion this morning. She is also c/o mild sob. The patient was seen by Dr. Hunt and is pending possible surgery early next week. No other acute events noted. No hemoptysis, hematemesis or hematochezia. PHYSICAL EXAMINATION: VITAL SIGNS: Blood pressure is currently 183/90, respirations 16, pulse 63, temperature 98.6. HEENT: Head is normocephalic. NECK: Supple. HEART: Regular rate. LUNGS: Diminished breath sounds at the base. ABDOMEN: Soft, nontender to palpation. No rebound, guarding. EXTREMITIES: Negative for clubbing, cyanosis. Positive venous insufficiency changes, positive edema. DERMATOLOGIC: No rashes. MUSCULOSKELETAL: No joint effusion. NEUROLOGIC: No change in exam. LABORATORY DATA: Showed sodium 141, potassium 5.4, chloride 107, bicarbonate 25 , BUN 46, creatinine 2.46, glucose 233, phosphorus 5.0. CBC was reviewed. ASSESSMENT AND PLAN: 1. Nonoliguric acute kidney injury on top of chronic kidney disease with previous baseline creatinine of 1.5 to 2 mg/dL. The patient's renal function has declined in the last 24 hours. This is likely due to hemodynamics and PATIENCE inhibitor effect. Plan at this point is to hold lisinopril. Will repeat a UA with microanalysis and calculate a FENa. Will continue supportive care, renally dose all medications, avoid nephrotoxins. 2. Hyperkalemia. Etiology is likely multifactorial secondary to PATIENCE inhibitor effect in conjunction with acute kidney injury and chronic kidney disease. The patient's PATIENCE inhibitor will be held. The patient will be placed on a low potassium diet. Will repeat a potassium level and monitor. If remains elevated , will place the patient on Kayexalate. 3. acute respiratory failure: Patient is more sob, will check cxr, abg. will start pt on flonase. continue diuretics, nebulizers, supplemental oxygen. Follow up with pulmonary 4. Right ovarian cystic mass, possible neoplasm. The patient is pending laparoscopic removal by early next week. 5. Acute decompensated heart failure. The patient is clinically improved. Continue to monitor. 6. Hypertension. Blood pressures are improving. Continue current blood pressure regimen. Holding lisinopril. 7. Anemia. Continue to monitor hemoglobin and hematocrit levels. 8. Diabetes. Glucose levels are not yet controlled, but improving. Follow up with safety and health consultant, Dr. Oconnor. 9. Coronary artery disease. Continue current treatment plan. 10. History of chronic kidney disease stage IV, etiology secondary to diabetes , hypertension. The patient is currently in acute kidney injury as stated above. Continue current medical management. 11. Morbid obesity. Continue dietary modification. 12. Sleep apnea. The patient has refused CPAP. Continue supplemental oxygen. 13. Peripheral vascular disease. Continue current treatment plan. 14. Dyslipidemia. Continue statin therapy. 15. Neuropathy. Continue Lyrica. 16. Debility. Continue PT, OT. 17. Gastrointestinal and deep venous thrombosis prophylaxis. Continue proton pump inhibitor, sequential leg squeezers and Lovenox. Dictated By: CRISTA GAINES/BIRGIT Conf#: [id number] DID#: [id number] MTDD
[2016-06-19] MEDS: FLUTICASONE 0.05% 16 GM NAS SPRAY NASAL SCH ×2 (11:35→21:00)
[2016-06-19] MEDS ORDERED: FUROSEMIDE 40 MG INJ IV ONE (12:00)
[2016-06-19 12:07] LABS: AADO2 Arterial 128.6 mmHg (7.0-24.0); Allen Test ACCEPTAB; Arterial Base Excess -4.6 mmol/L (-3.0-3); Arterial COHb 0.3 % (0.0-3.0); Arterial HCO3 21.6 mmol/L (22.0-26.0); Arterial MetHb 0.4 % (0.0-1.5); Arterial Total Hemglobin 11.2 g/dl (12.0-18.0); MODE NASAL CANNULA
--- NOTE | 2016-06-19 12:48 | RADRPT ---
PROCEDURE: XR Chest. CLINICAL INDICATION: Shortness of breath. TECHNIQUE: Single frontal view. COMPARISON: 06/09/2016. FINDINGS: Mild pulmonary edema is improved. The lungs are otherwise clear. The heart is enlarged. There are sternal wires. There is no pleural effusion. There is no pneumothorax. IMPRESSION: 1. Mild pulmonary edema, improved. 2. Cardiomegaly. 3. Previous median sternotomy. RPTAT: QQ .Ethan Villanueva MD, MD Date Time Electronically viewed and signed by .Ethan Villanueva MD, MD on 06/19/2016 12:48 .R/
--- NOTE | 2016-06-19 13:21 | CONS ---
Date/Time of Note Date/Time of Note DATE: 06/19/16 TIME: 13:17 Assessment/Plan Assessment/Plan Additional Assessment/Plan ABG was reviewed from today which is essentially unremarkable. Chest x-ray also was reviewed done a short while ago which is showing mild pulmonary edema. Next Assessment and recommendations; 1. Patient admitted with acute urinary retention then discovered to have ovarian mass on CT imaging of the abdomen. 2. History of renal insufficiency. 3. Congestive heart failure. 4. COPD. 5. Diabetes. 6. History of coronary artery bypass surgery. Continue current treatment. Patient scheduled for laparoscopic abdominal surgery in 2 days time. Prognosis is guarded. However the the risk of not doing surgery far outweighs of conservative approach at the patient potentially could be having ovarian malignancy with the propensity of rapid metastasis. Consultation Date/Type/Reason Admit Date/Time Jun 09, 2016 at 12:22 Initial Consult Date 06/10/16 Type of Consultation: Pulmonary Referring Provider: SHARLA SOUAS MD 24 HR Interval Summary Free Text/Dictation Patient is remaining more somnolent. However according to the feeding nurse the patient does get out of bed to use the restroom. And however is readily arousable. Denies any shortness of breath or any chest pain. General examination; elderly lady who appears quite overweight. No distress noted. Exam/Review of Systems Vital Signs Vitals Vital Signs Date Time Temp Pulse Resp B/P Pulse Ox O2 Delivery O2 Flow Rate FiO2 06/19/16 08:24 94 3.0 06/19/16 08:19 71 24 Nasal Cannula 32 06/19/16 07:00 98.7 149/64 Intake and Output 06/18/16 06/18/16 06/19/16 15:00 23:00 07:00 Intake Total 400 ml 300 ml Output Total 400 ml Balance 400 ml -100 ml Exam HEENT examination; supple neck, JVD difficult to see because of short neck, pharynx is clear. Pupils are small bilaterally. No neck masses. No thyromegaly. Chest examination; diminished breath sounds throughout. S1-S2 audible, no murmurs. There is a well-healed sternotomy scar. Abdomen examination; protuberant, nontender. No organomegaly. Bowel sounds audible. Extremity examination; no peripheral edema. 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 Patient is somnolent. Results Result Diagram: 06/17/16 0610 06/19/16 1154 Results 24 hrs Laboratory Tests Test 06/18/16 17:47 06/18/16 21:25 06/19/16 00:47 06/19/16 03:01 Bedside Glucose 222 H 322 H 332 H 281 H Test 06/19/16 05:00 06/19/16 08:08 06/19/16 11:29 06/19/16 11:54 Anion Gap 14 Blood Urea Nitrogen 46 H Calcium Level 8.5 Carbon Dioxide Level 25 Chloride Level 107 Creatinine 2.46 H Glucose Level 233 H Magnesium Level 2.3 Phosphorus Level 5.0 H Potassium Level 5.4 H 5.6 H Sodium Level 141 Bedside Glucose 204 Arterial Blood HCO3 21.6 L Arterial Blood Base Excess -4.6 L Arterial Blood Oxygen Saturation 94.7 L Jasmeet Test ACCEPTAB Arterial Blood Gas Puncture Site Right Radial Arterial Blood Carboxyhemoglobin 0.3 Arterial Blood Date Drawn 06/19/2016 11:55:09 AM Arterial Blood Methemoglobin 0.4 Arterial Blood pCO2 (Temp correct) 44.7 Arterial Blood pH (Temp corrected) 7.303 L Arterial Blood pO2 (Temp corrected) 76.2 L Blood Gas A-a O2 Differential 128.6 H Blood Gas Modality NASAL CANNULA Blood Gas Notified Time 06/19/2016 12:06:51 PM Blood Gas Notified Whom JLD Blood Gas Specimen Source Blood arterial Blood Gas Temperature 37.0 FiO2 36.0 Oxyhemoglobin Percent 94.0 Total Hemoglobin 11.2 L Test 06/19/16 12:21 Bedside Glucose 207 Medications Medications Current Medications Aspirin (Halfprin) 81 mg DAILY PO Last administered on 06/19/16 08:42; Admin Dose 81 MG; Start 06/10/16 at 09:00 Gabapentin (Neurontin) 600 mg TID PO Last administered on 06/19/16 12:52; Admin Dose 600 MG; Start 06/09/16 at 21:00 Miscellaneous Medication (Bystolic) 20 mg DAILY PO Last administered on 08:42; Admin Dose 20 MG; Start 06/10/16 at 09:00 Pregabalin (Lyrica) 150 mg QHS PO Last administered on 06/18/16 21:42; Admin Dose 150 MG; Start 06/09/16 at 21:00 Valacyclovir HCl (Valtrex) 1,000 mg BID PO Last administered on 06/19/16 08:39 ; Admin Dose 1,000 MG; Start 06/09/16 at 21:00 Miscellaneous Information 1 ea NOTE XX ; Start 06/09/16 at 18:30 Glucose (Glutose) 15 gm Q15M PRN PO DECREASED GLUCOSE; Start 06/09/16 at 18:30 Glucose (Glutose) 22.5 gm Q15M PRN PO DECREASED GLUCOSE; Start 06/09/16 at 18: 30 Dextrose (D50w Syringe) 25 ml Q15M PRN IV DECREASED GLUCOSE; Start 06/09/16 at 18:30 Dextrose (D50w Syringe) 50 ml Q15M PRN IV DECREASED GLUCOSE; Start 06/09/16 at 18:30 Glucagon (Glucagen) 1 mg Q15M PRN IM DECREASED GLUCOSE; Start 06/09/16 at 18:30 Glucose (Glutose) 15 gm Q15M PRN BUCCAL DECREASED GLUCOSE; Start 06/09/16 at 18 :30 Amlodipine Besylate (Norvasc) 10 mg DAILY PO Last administered on 06/19/16 08: 42; Admin Dose 10 MG; Start 06/09/16 at 20:30 Hydromorphone HCl (Dilaudid) 0.5 mg Q4H PRN IV PAIN Last administered on 01:03; Admin Dose 0.5 MG; Start 06/10/16 at 02:30 Methyldopa (Aldomet) 500 mg BID PO Last administered on 06/19/16 08:39; Admin Dose 500 MG; Start 06/10/16 at 02:30 Pantoprazole (Protonix Tab) 40 mg DAILY@06 PO Last administered on 06/19/16 06 :21; Admin Dose 40 MG; Start 06/11/16 at 06:00 Enoxaparin Sodium (Lovenox) 30 mg DAILY SC Last administered on 06/19/16 08:45 ; Admin Dose 30 MG; Start 06/11/16 at 09:00 Clonidine (Catapres) 0.2 mg Q6H PRN PO SBP above 160 Last administered on 10:22; Admin Dose 0.2 MG; Start 06/10/16 at 12:17 Hydralazine HCl (Apresoline) 10 mg Q4H PRN IV SBP >170 Last administered on 00:24; Admin Dose 10 MG; Start 06/10/16 at 15:00 Furosemide (Lasix) 20 mg DAILY PO Last administered on 06/19/16 08:43; Admin Dose 20 MG; Start 06/11/16 at 09:00 Lorazepam (Ativan) 0.5 mg HS PO Last administered on 06/18/16 21:42; Admin Dose 0.5 MG; Start 06/11/16 at 22:00 Bethanechol Chloride (Urecholine) 25 mg TID PO Last administered on 06/19/16 12:52; Admin Dose 25 MG; Start 06/13/16 at 13:00 Hydralazine HCl (Apresoline) 50 mg Q8H PO Last administered on 06/19/16 06:21 ; Admin Dose 50 MG; Start 06/15/16 at 15:00 Linagliptin (Tradjenta) 5 mg DAILY PO Last administered on 06/19/16 08:43; Admin Dose 5 MG; Start 06/16/16 at 09:00 Capsaicin (Theragen) 1 applic QID TOP Last administered on 06/19/16 12:52; Admin Dose 1 APPLIC; Start 06/15/16 at 21:00 Lidocaine (Lidocaine 5% Oint) 1 applic TID PRN TOP ITCHING/PAIN; Start at 15:30 Docusate Sodium (Colace) 100 mg BID PO Last administered on 06/19/16 08:43; Admin Dose 100 MG; Start 06/16/16 at 15:00 Bisacodyl (Dulcolax) 10 mg DAILY PRN PO CONSTIPATION; Start 06/16/16 at 14:00 Lisinopril (Zestril) 20 mg BID PO Last administered on 06/18/16 21:41; Admin Dose 20 MG; Start 06/17/16 at 21:00; Status Future Hold Guaifenesin/ Dextromethorphan (Robitussin Dm Liquid Cup) 10 ml Q4H PRN PO COUGH ; Start 06/17/16 at 17:30 Insulin Glargine (Lantus) 64 unit DAILY@20 SC Last administered on 06/18/16 21 :31; Admin Dose 64 UNIT; Start 06/18/16 at 20:00 Fluticasone Propionate (Flonase 0.05% Nasal) 1 spray BID NASAL Last administered on 06/19/16t 11:35; Admin Dose 1 SPRAY; Start 06/19/16 at 09:00 JAYME POP Jun 19, 2016 13:21
[2016-06-19 15:43] VITALS: BP 126/61; PULSE 65
[2016-06-19 15:50] LABS: ADD UMIC YES; URINE BILIRUBIN (Dip) NEGATIVE (NEGATIVE); URINE BLOOD (Dip) NEGATIVE (NEGATIVE); URINE COLOR LT. YELLOW (YELLOW); URINE KETONES (Dip) NEGATIVE (NEGATIVE); URINE LEUKOCYTE ESTERASE (Dip) NEGATIVE (NEGATIVE); URINE NITRITE (Dip) NEGATIVE (NEGATIVE); URINE TOTAL PROTEIN (Dip) 2+ (NEGATIVE); URINE UROBILINOGEN (Dip) 0.2 E.U./dL (0.1-1.0)
[2016-06-19 16:08] LABS: URINE RBCS 0-2 /HPF (0)
[2016-06-19 16:09] LABS: BACTERIA,URINE FEW
[2016-06-19 16:22] LABS: PROTEIN URINE 85.6 mg/dl (0.0-9.9)
[2016-06-19 18:01] LABS: CREATININE 2.45 mg/dl (0.44-1.00)
[2016-06-19 18:02] LABS: CALCIUM 8.9 mg/dl (8.4-10.2)
[2016-06-19] MEDS ORDERED: INSULIN ASPART [NOVOLOG] 3 ML PEN SC ONE (18:20)
--- NOTE | 2016-06-19 18:33 | CONS ---
Date/Time of Note Date/Time of Note DATE: 06/19/16 TIME: 18:30 Assessment/Plan Assessment/Plan Problems: (1) Type 2 diabetes mellitus with other specified complication Status: Chronic Comment: Glucose levels remain uncontrolled. Do not wish to continue to increase basal insulin but need to lower fasting BG. Will add 8 units NPH at hs in addition to 64 units lantus. Will increase Novolog from 32 to 40 units at meals to attempt to get better control during day. Consultation Date/Type/Reason Admit Date/Time Jun 09, 2016 at 12:22 Initial Consult Date 06/15/16 Type of Consultation: Endocrinology Reason for Consultation [id number] Referring Provider: SHARLA SOUSA MD 24 HR Interval Summary Subjective hx not possible: pt non-verbal (sleeping) Exam/Review of Systems Vital Signs Vitals VS - Last 72 Hours, by Label Date Time Temp Pulse Resp B/P Pulse Ox O2 Delivery O2 Flow Rate FiO2 06/19/16 15:43 65 126/61 06/19/16 15:05 Nasal Cannula 3.0 06/19/16 13:34 Nasal Cannula 3.0 06/19/16 08:24 94 3.0 06/19/16 08:19 71 24 94 Nasal Cannula 3.0 32 06/19/16 08:00 Nasal Cannula 3.0 06/19/16 07:00 98.7 70 20 149/64 95 06/19/16 05:42 98.9 77 18 134/69 93 Nasal Cannula 2.0 06/18/16 23:55 77 144/67 06/18/16 21:43 98.3 79 20 138/63 91 06/18/16 21:20 Nasal Cannula 2.0 06/18/16 19:58 3.0 06/18/16 19:58 75 22 90 Nasal Cannula 3.0 21 06/18/16 19:05 3.0 06/18/16 16:20 67 131/63 06/18/16 10:00 67 20 90 Nasal Cannula 1.0 06/18/16 08:38 98.0 66 20 142/97 93 06/18/16 04:10 68 20 94 Nasal Cannula 2.0 06/18/16 03:03 2.0 06/17/16 21:25 77 140/70 06/17/16 20:25 Nasal Cannula 2.0 06/17/16 20:25 98.4 73 18 130/60 94 06/17/16 20:09 72 20 91 Nasal Cannula 2.0 21 06/17/16 14:18 62 20 94 Nasal Cannula 2.0 06/17/16 11:41 137/70 06/17/16 08:31 98.5 70 20 180/81 99 06/17/16 08:00 62 20 93 Nasal Cannula 2.0 06/17/16 08:00 Nasal Cannula 2.0 06/16/16 22:58 74 129/61 06/16/16 20:21 64 22 90 21 06/16/16 20:14 98.0 62 21 126/64 98 06/16/16 18:34 96 Vital Signs Date Time Temp Pulse Resp B/P Pulse Ox O2 Delivery O2 Flow Rate FiO2 06/19/16 15:43 65 126/61 06/19/16 15:05 Nasal Cannula 3.0 06/19/16 08:24 94 06/19/16 08:19 24 32 06/19/16 07:00 98.7 Intake and Output 06/18/16 06/18/16 06/19/16 15:00 23:00 07:00 Intake Total 400 ml 300 ml Output Total 400 ml Balance 400 ml -100 ml Exam Constitutional: obese, No alert (sleeping) Respiratory: clear to auscultation, normal air movement Cardiovascular: edema (2+ BLE), regular rate and rhythm, No murmurs/extra sounds, No rub Gastrointestinal: bowel sounds, nl liver, spleen, non-tender, soft, No mass, No rebound or guarding Musculoskeletal: nl extremities to inspection Extremities: edema (2+ BLE), normal pulses, No clubbing, No cyanosis Neurological: HAND COMPOSITOR II-XII intact, nl mental status, nl speech, nl strength Additional Comments Bedside Glucose - 72 Hours Test 06/16/16 20:57 06/16/16 23:51 06/17/16 08:50 06/17/16 12:00 Bedside Glucose 206mg/dL (70-220) 247mg/dL (70-220) H 208mg/dL (70-220) 232mg/dL (70-220) H Test 06/17/16 17:16 06/17/16 21:30 06/18/16 00:08 06/18/16 07:58 Bedside Glucose 177mg/dL (70-220) 315mg/dL (70-220) H 289mg/dL (70-220) H 205mg/dL (70-220) Test 06/18/16 12:43 06/18/16 17:47 06/18/16 21:25 06/19/16 00:47 Bedside Glucose 196mg/dL (70-220) 222mg/dL (70-220) H 322mg/dL (70-220) H 332mg/dL (70-220) H Test 06/19/16 03:01 06/19/16 08:08 06/19/16 12:21 06/19/16 17:03 Bedside Glucose 281mg/dL (70-220) H 204mg/dL (70-220) 207mg/dL (70-220) 176mg/dL (70-220) Results Result Diagram: 06/17/16 0610 06/19/16 1730 Results 24 hrs Laboratory Tests Test 06/18/16 21:25 06/19/16 00:47 06/19/16 03:01 06/19/16 05:00 Bedside Glucose 322 H 332 H 281 H Anion Gap 14 Blood Urea Nitrogen 46 H Calcium Level 8.5 Carbon Dioxide Level 25 Chloride Level 107 Creatinine 2.46 H Glucose Level 233 H Magnesium Level 2.3 Phosphorus Level 5.0 H Potassium Level 5.4 H Sodium Level 141 Test 06/19/16 08:08 06/19/16 11:29 06/19/16 11:54 06/19/16 12:21 Bedside Glucose 204 207 Arterial Blood HCO3 21.6 L Arterial Blood Base Excess -4.6 L Arterial Blood Oxygen Saturation 94.7 L Jasmeet Test ACCEPTAB Arterial Blood Gas Puncture Site Right Radial Arterial Blood Carboxyhemoglobin 0.3 Arterial Blood Date Drawn 06/19/2016 11:55:09 AM Arterial Blood Methemoglobin 0.4 Arterial Blood pCO2 (Temp correct) 44.7 Arterial Blood pH (Temp corrected) 7.303 L Arterial Blood pO2 (Temp corrected) 76.2 L Blood Gas A-a O2 Differential 128.6 H Blood Gas Modality NASAL CANNULA Blood Gas Notified Time 06/19/2016 12:06:51 PM Blood Gas Notified Whom JLD Blood Gas Specimen Source Blood arterial Blood Gas Temperature 37.0 FiO2 36.0 Oxyhemoglobin Percent 94.0 Total Hemoglobin 11.2 L Potassium Level 5.6 H Test 06/19/16 15:00 06/19/16 17:03 06/19/16 17:30 Urine Bacteria FEW Urine Bilirubin NEGATIVE Urine Clarity CLEAR Urine Color LT. YELLOW Urine Epithelial Cells FEW Urine Glucose 0.1% H Urine Hemoglobin NEGATIVE Urine Ketones NEGATIVE Urine Leukocyte Esterase NEGATIVE Urine Microscopic RBC 0-2 Urine Microscopic WBC 2-5 Urine Nitrite NEGATIVE Urine Random Creatinine 47.73 Urine Random Sodium 70 Urine Specific [place] 1.020 Urine Total Protein 85.6 H Urine Urobilinogen 0.2 E.U./dL Urine pH 5.0 Bedside Glucose 176 Anion Gap 16 Blood Urea Nitrogen 45 H Calcium Level 8.9 Carbon Dioxide Level 24 Chloride Level 106 Creatinine 2.45 H Glucose Level 189 Potassium Level 6.0 H Sodium Level 140 Medications Medications Current Medications Aspirin (Halfprin) 81 mg DAILY PO Last administered on 06/19/16 08:42; Admin Dose 81 MG; Start 06/10/16 at 09:00 Gabapentin (Neurontin) 600 mg TID PO Last administered on 06/19/16 12:52; Admin Dose 600 MG; Start 06/09/16 at 21:00 Miscellaneous Medication (Bystolic) 20 mg DAILY PO Last administered on 08:42; Admin Dose 20 MG; Start 06/10/16 at 09:00 Pregabalin (Lyrica) 150 mg QHS PO Last administered on 06/18/16 21:42; Admin Dose 150 MG; Start 06/09/16 at 21:00 Valacyclovir HCl (Valtrex) 1,000 mg BID PO Last administered on 06/19/16 08:39 ; Admin Dose 1,000 MG; Start 06/09/16 at 21:00 Miscellaneous Information 1 ea NOTE XX ; Start 06/09/16 at 18:30 Glucose (Glutose) 15 gm Q15M PRN PO DECREASED GLUCOSE; Start 06/09/16 at 18:30 Glucose (Glutose) 22.5 gm Q15M PRN PO DECREASED GLUCOSE; Start 06/09/16 at 18: 30 Dextrose (D50w Syringe) 25 ml Q15M PRN IV DECREASED GLUCOSE; Start 06/09/16 at 18:30 Dextrose (D50w Syringe) 50 ml Q15M PRN IV DECREASED GLUCOSE; Start 06/09/16 at 18:30 Glucagon (Glucagen) 1 mg Q15M PRN IM DECREASED GLUCOSE; Start 06/09/16 at 18:30 Glucose (Glutose) 15 gm Q15M PRN BUCCAL DECREASED GLUCOSE; Start 06/09/16 at 18 :30 Amlodipine Besylate (Norvasc) 10 mg DAILY PO Last administered on 06/19/16 08: 42; Admin Dose 10 MG; Start 06/09/16 at 20:30 Hydromorphone HCl (Dilaudid) 0.5 mg Q4H PRN IV PAIN Last administered on 01:03; Admin Dose 0.5 MG; Start 06/10/16 at 02:30 Methyldopa (Aldomet) 500 mg BID PO Last administered on 06/19/16 08:39; Admin Dose 500 MG; Start 06/10/16 at 02:30 Pantoprazole (Protonix Tab) 40 mg DAILY@06 PO Last administered on 06/19/16 06 :21; Admin Dose 40 MG; Start 06/11/16 at 06:00 Enoxaparin Sodium (Lovenox) 30 mg DAILY SC Last administered on 06/19/16 08:45 ; Admin Dose 30 MG; Start 06/11/16 at 09:00 Clonidine (Catapres) 0.2 mg Q6H PRN PO SBP above 160 Last administered on 10:22; Admin Dose 0.2 MG; Start 06/10/16 at 12:17 Hydralazine HCl (Apresoline) 10 mg Q4H PRN IV SBP >170 Last administered on 00:24; Admin Dose 10 MG; Start 06/10/16 at 15:00 Furosemide (Lasix) 20 mg DAILY PO Last administered on 06/19/16 08:43; Admin Dose 20 MG; Start 06/11/16 at 09:00 Lorazepam (Ativan) 0.5 mg HS PO Last administered on 06/18/16 21:42; Admin Dose 0.5 MG; Start 06/11/16 at 22:00 Bethanechol Chloride (Urecholine) 25 mg TID PO Last administered on 06/19/16 12:52; Admin Dose 25 MG; Start 06/13/16 at 13:00 Hydralazine HCl (Apresoline) 50 mg Q8H PO Last administered on 06/19/16 15:18 ; Admin Dose 50 MG; Start 06/15/16 at 15:00 Linagliptin (Tradjenta) 5 mg DAILY PO Last administered on 06/19/16 08:43; Admin Dose 5 MG; Start 06/16/16 at 09:00 Capsaicin (Theragen) 1 applic QID TOP Last administered on 06/19/16 18:08; Admin Dose 1 APPLIC; Start 06/15/16 at 21:00 Lidocaine (Lidocaine 5% Oint) 1 applic TID PRN TOP ITCHING/PAIN; Start at 15:30 Docusate Sodium (Colace) 100 mg BID PO Last administered on 06/19/16 08:43; Admin Dose 100 MG; Start 06/16/16 at 15:00 Bisacodyl (Dulcolax) 10 mg DAILY PRN PO CONSTIPATION; Start 06/16/16 at 14:00 Lisinopril (Zestril) 20 mg BID PO Last administered on 06/18/16 21:41; Admin Dose 20 MG; Start 06/17/16 at 21:00; Status Future Hold Guaifenesin/ Dextromethorphan (Robitussin Dm Liquid Cup) 10 ml Q4H PRN PO COUGH ; Start 06/17/16 at 17:30 Insulin Glargine (Lantus) 64 unit DAILY@20 SC Last administered on 06/18/16 21 :31; Admin Dose 64 UNIT; Start 06/18/16 at 20:00 Fluticasone Propionate (Flonase 0.05% Nasal) 1 spray BID NASAL Last administered on 06/19/16 11:35; Admin Dose 1 SPRAY; Start 06/19/16 at 09:00 Insulin Human NPH (Humulin N) 10 unit HS SC ; Start 06/19/16 at 21:00 NICOLLE GONZALES MD Jun 19, 2016 18:32
[2016-06-19] MEDS ORDERED: NA POLYST SULFON 15 GM/60 ML BTL PO ONE (19:00)
[2016-06-19 20:19] VITALS: BP 142/74; RESP 22
[2016-06-19] MEDS: INSULIN GLARGINE [LANtus] 3 ML PEN SC SCH (20:36)
[2016-06-19] MEDS: LORAZEPAM 0.5 MG TAB PO SCH (21:00)
[2016-06-19] MEDS: PREGABALIN 75 MG CAP PO SCH (21:00)
[2016-06-19 21:24] LABS: CREATININE 2.58 mg/dl (0.44-1.00)
[2016-06-19] MEDS: NPH, HUMAN INSULIN ISOPHANE 3ML VIAL SC SCH (21:28)
--- NOTE | 2016-06-19 22:22 | CONS ---
Date/Time of Note Date/Time of Note DATE: 06/19/16 TIME: 22:21 Assessment/Plan Assessment/Plan Chief Complaint/Hosp Course 1. A right ovarian cystic mass. Etiology is unclear, concerning for possible malignancy. ca 125-n AMENDMENT to CT AP 06/12/2016 2:01:08 PM Ethan Villanueva MD Comparison is made with prior CT scan of the abdomen and pelvis dated 11/23/2009. The large right adnexal mass measures 6.7 x 8.8 x 7.4 cm on the current study and measured 3.7 x 4.6 x 4.8 cm on 11/23/2009. MRI PELVIS- Large complex cystic right ovarian mass which in a postmenopausal female is worrisome for an ovarian cystic neoplasm. Multiple uterine masses consistent with a leiomyomatous uterus. SEEN BY GYNEONC-will observe urologic response to medication and surgery definitely an option but requires clearance. Would approach laparoscopic and can do LSH/BSO with minilap and stage if needed. D/W PT AND FAMILY- CARDIAC AND PULM CLEARANCE- OBTAINED D/W DR LOWRY 2. Anemia. Continue to monitor hemoglobin and hematocrit levels. + component ACD OBSERVE FOR BLEEDING AND HEMOLYSIS 3. Nonoliguric acute kidney injury on top of chronic kidney disease with a previous baseline renal function around 1.5 to 2 mg/dL. Etiology of acute kidney injury is possibly secondary to urinary retention, obstructive uropathy versus hemodynamics, possible cardiorenal syndrome. The patient's urinalysis shows findings of proteinuria but no pyuria, no hematuria, and a CT scan of the abdomen and pelvis showed no evidence of hydronephrosis. Plan at this point is to check a renal ultrasound. Will repeat UA with microanalysis. Will check urine electrolytes. Will continue supportive care, renally dose medications, avoid nephrotoxins, monitor renal function closely. Clinical albuminuria - PER NEPHROLOGY 4 Urinary retention. Underlying etiology is unclear. The patient is status post Flynn catheter placement with good urinary output. Seen by urology still unable to urinate on intermittent catheterizations URECHOLINE - DOSE INCREASED 5. Acute decompensated diastolic heart failure. The patient noted to have pulmonary congestion, lower extremity edema. The patient is status post Lasix; will continue- PER NEPHRO cardiology F-UP 6. History of coronary artery disease, status post coronary artery bypass graft. Continue current medical management. 7. Diabetes. Will continue Accu-Cheks, insulin sliding scale, continue Lantus. HB A1C- 8.1 8. Chronic kidney disease stage IIIB/IV. Etiology is multifactorial secondary to diabetes, hypertension. The patient is currently in acute kidney injury as stated above. Continue medical management. 9. Morbid obesity. Continue dietary modification. 10. Dyslipidemia. Continue statin therapy. 11. Obstructive sleep apnea. Continue supplemental oxygen. Consider a pulmonary consult for evaluation. 12. Hypertension- POORLY CONTROLLED Continue current blood pressure regimen. Will adjust medications as needed. CARDIOLOGY F-UP 13. History of peripheral vascular disease. Continue current medical management. 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 SEVERE DJD/OA WITH CHRONIC PAIN 16. GI PROBLEMS- WITH ABD PAIN, DIARRHEA/ ALTERNATING WITH CONSTIPATION GI EVAL AND F-UP Problems: Consultation Date/Type/Reason Admit Date/Time Jun 09, 2016 at 12:22 Initial Consult Date 06/09/16 Type of Consultation: HEMEON Reason for Consultation OVARIAN MASS Referring Provider: SHARLA SOUSA MD 24 HR Interval Summary Free Text/Dictation Patient is remaining more somnolent. the patient does get out of bed to use the restroom. arousable. Denies any shortness of breath or any chest pain. No distress noted. Exam/Review of Systems Vital Signs Vitals Vital Signs Date Time Temp Pulse Resp B/P Pulse Ox O2 Delivery O2 Flow Rate FiO2 06/19/16 20:19 98.4 71 22 142/74 90 06/19/16 20:19 3.0 06/19/16 20:19 21 06/19/16 19:00 Nasal Cannula Intake and Output 06/18/16 06/18/16 06/19/16 15:00 23:00 07:00 Intake Total 400 ml 300 ml Output Total 400 ml Balance 400 ml -100 ml Exam Constitutional: alert, oriented Psych: no complaints Head: normocephalic Neck: No jvd Respiratory: clear to auscultation, diminished breath sounds Cardiovascular: regular rate and rhythm, No edema Gastrointestinal: soft Neurological: nl mental status, nl speech Results Result Diagram: 06/17/16 0610 06/19/166 Results 24 hrs Laboratory Tests Test 06/19/16 00:47 06/19/16 03:01 06/19/16 05:00 06/19/16 08:08 Bedside Glucose 332 H 281 H 204 Anion Gap 14 Blood Urea Nitrogen 46 H Calcium Level 8.5 Carbon Dioxide Level 25 Chloride Level 107 Creatinine 2.46 H Glucose Level 233 H Magnesium Level 2.3 Phosphorus Level 5.0 H Potassium Level 5.4 H Sodium Level 141 Test 06/19/16 11:29 06/19/16 11:54 06/19/16 12:21 06/19/16 15:00 Arterial Blood HCO3 21.6 L Arterial Blood Base Excess -4.6 L Arterial Blood Oxygen Saturation 94.7 L Jasmeet Test ACCEPTAB Arterial Blood Gas Puncture Site Right Radial Arterial Blood Carboxyhemoglobin 0.3 Arterial Blood Date Drawn 06/19/2016 11:55:09 AM Arterial Blood Methemoglobin 0.4 Arterial Blood pCO2 (Temp correct) 44.7 Arterial Blood pH (Temp corrected) 7.303 L Arterial Blood pO2 (Temp corrected) 76.2 L Blood Gas A-a O2 Differential 128.6 H Blood Gas Modality NASAL CANNULA Blood Gas Notified Time 06/19/2016 12:06:51 PM Blood Gas Notified Whom JLD Blood Gas Specimen Source Blood arterial Blood Gas Temperature 37.0 FiO2 36.0 Oxyhemoglobin Percent 94.0 Total Hemoglobin 11.2 L Potassium Level 5.6 H Bedside Glucose 207 Urine Bacteria FEW Urine Bilirubin NEGATIVE Urine Clarity CLEAR Urine Color LT. YELLOW Urine Epithelial Cells FEW Urine Glucose 0.1% H Urine Hemoglobin NEGATIVE Urine Ketones NEGATIVE Urine Leukocyte Esterase NEGATIVE Urine Microscopic RBC 0-2 Urine Microscopic WBC 2-5 Urine Nitrite NEGATIVE Urine Random Creatinine 47.73 Urine Random Sodium 70 Urine Specific [place] 1.020 Urine Total Protein 85.6 H Urine Urobilinogen 0.2 E.U./dL Urine pH 5.0 Test 06/19/16 17:03 06/19/16 17:30 06/19/16 20:31 06/19/16 21:06 Bedside Glucose 176 167 Anion Gap 16 17 H Blood Urea Nitrogen 45 H 46 H Calcium Level 8.9 9.0 Carbon Dioxide Level 24 25 Chloride Level 106 107 Creatinine 2.45 H 2.58 H Glucose Level 189 172 Potassium Level 6.0 H 5.0 Sodium Level 140 144 Medications Medications Current Medications Aspirin (Halfprin) 81 mg DAILY PO Last administered on 06/19/16 08:42; Admin Dose 81 MG; Start 06/10/16 at 09:00 Gabapentin (Neurontin) 600 mg TID PO Last administered on 06/19/16 20:46; Admin Dose 600 MG; Start 06/09/16 at 21:00 Miscellaneous Medication (Bystolic) 20 mg DAILY PO Last administered on 08:42; Admin Dose 20 MG; Start 06/10/16 at 09:00 Pregabalin (Lyrica) 150 mg QHS PO Last administered on 06/18/16 21:42; Admin Dose 150 MG; Start 06/09/16 at 21:00 Valacyclovir HCl (Valtrex) 1,000 mg BID PO Last administered on 06/19/16 20:45 ; Admin Dose 1,000 MG; Start 06/09/16 at 21:00 Miscellaneous Information 1 ea NOTE XX ; Start 06/09/16 at 18:30 Glucose (Glutose) 15 gm Q15M PRN PO DECREASED GLUCOSE; Start 06/09/16 at 18:30 Glucose (Glutose) 22.5 gm Q15M PRN PO DECREASED GLUCOSE; Start 06/09/16 at 18: 30 Dextrose (D50w Syringe) 25 ml Q15M PRN IV DECREASED GLUCOSE; Start 06/09/16 at 18:30 Dextrose (D50w Syringe) 50 ml Q15M PRN IV DECREASED GLUCOSE; Start 06/09/16 at 18:30 Glucagon (Glucagen) 1 mg Q15M PRN IM DECREASED GLUCOSE; Start 06/09/16 at 18:30 Glucose (Glutose) 15 gm Q15M PRN BUCCAL DECREASED GLUCOSE; Start 06/09/16 at 18 :30 Amlodipine Besylate (Norvasc) 10 mg DAILY PO Last administered on 06/19/16 08: 42; Admin Dose 10 MG; Start 06/09/16 at 20:30 Hydromorphone HCl (Dilaudid) 0.5 mg Q4H PRN IV PAIN Last administered on 01:03; Admin Dose 0.5 MG; Start 06/10/16 at 02:30 Methyldopa (Aldomet) 500 mg BID PO Last administered on 06/19/16 20:46; Admin Dose 500 MG; Start 06/10/16 at 02:30 Pantoprazole (Protonix Tab) 40 mg DAILY@06 PO Last administered on 06/19/16 06 :21; Admin Dose 40 MG; Start 06/11/16 at 06:00 Enoxaparin Sodium (Lovenox) 30 mg DAILY SC Last administered on 06/19/16 08:45 ; Admin Dose 30 MG; Start 06/11/16 at 09:00 Clonidine (Catapres) 0.2 mg Q6H PRN PO SBP above 160 Last administered on 10:22; Admin Dose 0.2 MG; Start 06/10/16 at 12:17 Hydralazine HCl (Apresoline) 10 mg Q4H PRN IV SBP >170 Last administered on 00:24; Admin Dose 10 MG; Start 06/10/16 at 15:00 Furosemide (Lasix) 20 mg DAILY PO Last administered on 06/19/16 08:43; Admin Dose 20 MG; Start 06/11/16 at 09:00 Lorazepam (Ativan) 0.5 mg HS PO Last administered on 06/18/16 21:42; Admin Dose 0.5 MG; Start 06/11/16 at 22:00 Bethanechol Chloride (Urecholine) 25 mg TID PO Last administered on 06/19/16 20:44; Admin Dose 25 MG; Start 06/13/16 at 13:00 Hydralazine HCl (Apresoline) 50 mg Q8H PO Last administered on 06/19/16 15:18 ; Admin Dose 50 MG; Start 06/15/16 at 15:00 Linagliptin (Tradjenta) 5 mg DAILY PO Last administered on 06/19/16 08:43; Admin Dose 5 MG; Start 06/16/16 at 09:00 Capsaicin (Theragen) 1 applic QID TOP Last administered on 06/19/16 18:08; Admin Dose 1 APPLIC; Start 06/15/16 at 21:00 Lidocaine (Lidocaine 5% Oint) 1 applic TID PRN TOP ITCHING/PAIN; Start at 15:30 Docusate Sodium (Colace) 100 mg BID PO Last administered on 06/19/16 20:44; Admin Dose 100 MG; Start 06/16/16 at 15:00 Bisacodyl (Dulcolax) 10 mg DAILY PRN PO CONSTIPATION Last administered on 20:44; Admin Dose 10 MG; Start 06/16/16 at 14:00 Lisinopril (Zestril) 20 mg BID PO Last administered on 06/18/16 21:41; Admin Dose 20 MG; Start 06/17/16 at 21:00; Status Future Hold Guaifenesin/ Dextromethorphan (Robitussin Dm Liquid Cup) 10 ml Q4H PRN PO COUGH ; Start 06/17/16 at 17:30 Insulin Glargine (Lantus) 64 unit DAILY@20 SC Last administered on 06/19/16 20 :36; Admin Dose 64 UNIT; Start 06/18/16 at 20:00 Fluticasone Propionate (Flonase 0.05% Nasal) 1 spray BID NASAL Last administered on 06/19/16 11:35; Admin Dose 1 SPRAY; Start 06/19/16 at 09:00 Insulin Human NPH (Humulin N) 10 unit HS SC Last administered on 06/19/16 21: 28; Admin Dose 10 UNIT; Start 06/19/16 at 21:00 SHARLA SOUSA MD Jun 19, 2016 22:22
[2016-06-19 23:58] VITALS: BP 134/64; RESP 20
[2016-06-20] MEDS: LORAZEPAM 0.5 MG TAB PO SCH ×3 (03:23→23:57)
[2016-06-20] MEDS: ALBUTEROL/IPRATROPIUM (NEB) 3 ML AMP HHN PRN (03:51)
[2016-06-20 04:04] VITALS: BP 141/65; PULSE 78; RESP 18
[2016-06-20] MEDS: PANTOPRAZOLE (EC) 40 MG TAB PO SCH (06:41)
[2016-06-20 06:51] VITALS: BP 129/69; PULSE 73; RESP 18
[2016-06-20 07:00] VITALS: BP 136/69; RESP 20
--- NOTE | 2016-06-20 09:08 | PN ---
DATE: 06/20/2016 SUBJECTIVE: Yesterday the patient was noted to be hyperkalemic and received a dose of IV Lasix. Th e patient's respiratory distress improved yesterday after receiving an additional dose of Lasix. Th is morning the patient was lethargic, did not sleep overnight, but arousable. No other acute events noted. OBJECTIVE: VITAL SIGNS: Blood pressure is 129/69, respirations 18, pulse 73, temperature 98.3. HEENT: Head is normocephalic. Pupils are reactive to light. NECK: Supple. HEART: Regular rate. LUNGS: Show diminished breath sounds at the base. ABDOMEN: Obese, soft, nontender to palpation. EXTREMITIES: Negative for clubbing or cyanosis. Positive edema. DERMATOLOGIC: No rashes. MUSCULOSKELETAL: Have no joint effusion. NEUROLOGIC: Limited exam, but no obvious focal deficits. LABORATORY DATA: 06/19/2016 shows sodium 144, potassium 5.0, BUN 46, creatinine 2.58. CBC is curre ntly pending. ASSESSMENT AND PLAN: 1. Nonoliguric acute kidney injury on top of chronic kidney disease, with a previous baseline creat inine around 2 mg/dL. Etiology of current acute kidney injury is likely due to hemodynamics and PATIENCE inhibitor effect. The possibility of tubular injury is also a consideration. At this point will co ntinue to hold PAITENCE inhibitor. Will place parameters on blood pressure medications to avoid hypotens yady episodes. Will continue diuretic therapy and monitor renal function closely. 2. Hyperkalemia. Etiology is multifactorial secondary to PATIENCE inhibitor effect in conjunction with acute kidney injury. The patient's potassium levels have improved. The patient is status post Fadumo xalate x1. Will continue to monitor. Continue a low-potassium diet. 3. Acute respiratory failure. Etiology is secondary to acute diastolic heart failure, COPD, possib le obesity hypoventilation syndrome and sleep apnea. The patient received additional diuretic thera py, received nebulizer therapy. Improving. Continue to monitor. 4. Right ovarian cystic mass, possible neoplasm. The patient is pending laparoscopic surgery, poss ibly early next week. 5. Acute decompensated heart failure. The patient's chest x-ray shows pulmonary vascular congestio n. Will increase Lasix to 40 mg daily and monitor. Follow up with cardiology. 6. Hypertension. Blood pressure is improved. Continue the current blood pressure regimen. Parame ters have been placed. Avoid hypotensive episodes. 7. Anemia. Continue to monitor hemoglobin and hematocrit levels. 8. Diabetes. Continue the current insulin regimen. 9. Coronary artery disease. Continue the current treatment plan. 10. 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 The patient is currently in acute kidney injury, as stated above. Continue the current medical managem ent. 11. Morbid obesity. Continue dietary modifications. 12. Sleep apnea. The patient has refused CPAP. Continue supplemental oxygen. 13. Peripheral vascular disease. Continue the current treatment plan. 14. Dyslipidemia. Continue statin therapy. 15. Neuropathy. Continue Lyrica. 16. Gastrointestinal and deep vein thrombosis prophylaxis. Continue proton pump inhibitor and Love nox. 16. Debility. Continue PT and OT. Dictated By: CRISTA GAINES/BIRGIT Conf#: [id number] DID#: [id number]
[2016-06-20] MEDS: ALBUTEROL/IPRATROPIUM (NEB) 3 ML AMP HHN SCH ×3 (09:28→19:18)
[2016-06-20 10:00] LABS: ADD SCAN DIFF NO
[2016-06-20 10:05] LABS: BASOPHILS % 0.3 % (0.0-2.0); EOSINOPHILS # 0.2 10^3/ul (0.0-0.5); EOSINOPHILS % 2.6 % (0.0-7.0); HEMATOCRIT 34.3 % (37.0-47.0); HEMOGLOBIN 10.6 g/dl (12.0-16.0); LYMPHOCYTES # 1.5 10^3/ul (0.8-2.9); LYMPHOCYTES % 25.1 % (15.0-51.0); MEAN CORPUSCULAR HEMOGLOBIN 31.7 pg (29.0-33.0); MEAN CORPUSCULAR HGB CONC 30.9 g/dl (32.0-37.0); MEAN CORPUSCULAR VOLUME 102.7 fl (82.0-101.0); MEAN PLATELET VOLUME 11.2 fl (7.4-10.4); MONOCYTE # 0.6 10^3/ul (0.3-0.9); NEUTROPHIL # 3.8 10^3/ul (1.6-7.5); NEUTROPHILS % 62.2 % (39.0-77.0); PLATELET COUNT 253 10^3/UL (140-415); RED BLOOD COUNT 3.34 10^6/ul (4.20-5.40); WHITE BLOOD COUNT 6.1 10^3/ul (4.8-10.8)
[2016-06-20 10:07] LABS: POTASSIUM 5.3 mmol/L (3.5-5.1)
[2016-06-20 10:10] LABS: CREATININE 2.55 mg/dl (0.44-1.00)
[2016-06-20 10:11] LABS: CALCIUM 8.4 mg/dl (8.4-10.2); MAGNESIUM 2.3 mg/dl (1.7-2.5); PHOSPHORUS 6.5 mg/dl (2.5-4.9)
[2016-06-20] MEDS: FLUTICASONE 0.05% 16 GM NAS SPRAY NASAL SCH ×2 (10:46→21:13)
[2016-06-20] MEDS: METHYLDOPA 500 MG TAB PO SCH ×2 (10:49→21:10)
[2016-06-20] MEDS: ENOXAPARIN 30 MG/0.3 ML SYG SC SCH (10:50)
[2016-06-20] MEDS: INSULIN ASPART [NOVOLOG] 3 ML PEN SC SCH ×7 (10:51→21:00)
[2016-06-20] MEDS: BETHANECHOL 25 MG TAB PO SCH ×3 (10:54→21:06)
[2016-06-20] MEDS: LINAGLIPTIN 5 MG TABLET PO SCH (10:54)
[2016-06-20] MEDS: NEBIVOLOL 5 MG TAB PO SCH (10:54)
[2016-06-20] MEDS: GABAPENTIN 300 MG CAP PO SCH ×3 (10:55→21:10)
[2016-06-20] MEDS: FUROSEMIDE 40 MG TAB PO SCH (10:55)
[2016-06-20] MEDS: VALACYCLOVIR 500 MG TAB PO SCH ×2 (10:55→21:10)
[2016-06-20] MEDS: ASPIRIN (EC) 81 MG TAB PO SCH (10:56)
[2016-06-20] MEDS: DOCUSATE SODIUM 100 MG CAP PO SCH ×2 (10:56→21:06)
[2016-06-20] MEDS: AMLODIPINE 10 MG TAB PO SCH (10:56)
[2016-06-20] MEDS: CAPSAICIN 0.025% 60 GM CR TOP SCH ×4 (10:57→21:14)
--- NOTE | 2016-06-20 12:21 | CONS ---
Date/Time of Note Date/Time of Note DATE: 06/20/16 TIME: 12:19 Assessment/Plan Assessment/Plan Chief Complaint/Hosp Course 1. A right ovarian cystic mass. Etiology is unclear, concerning for possible malignancy. ca 125-n AMENDMENT to CT AP 06/12/2016 2:01:08 PM Ethan Villanueva MD Comparison is made with prior CT scan of the abdomen and pelvis dated 11/23/2009. The large right adnexal mass measures 6.7 x 8.8 x 7.4 cm on the current study and measured 3.7 x 4.6 x 4.8 cm on 11/23/2009. MRI PELVIS- Large complex cystic right ovarian mass which in a postmenopausal female is worrisome for an ovarian cystic neoplasm. Multiple uterine masses consistent with a leiomyomatous uterus. SEEN BY GYNEONC-will observe urologic response to medication and surgery definitely an option but requires clearance. Would approach laparoscopic and can do LSH/BSO with minilap and stage if needed. D/W PT AND FAMILY- CARDIAC AND PULM CLEARANCE- OBTAINED D/W DR LOWRY 2. Anemia. Continue to monitor hemoglobin and hematocrit levels. + component ACD OBSERVE FOR BLEEDING AND HEMOLYSIS SERVIN / NUMBNESS LUE CT HEAD 3. Nonoliguric acute kidney injury on top of chronic kidney disease with a previous baseline renal function around 1.5 to 2 mg/dL. Etiology of acute kidney injury is possibly secondary to urinary retention, obstructive uropathy versus hemodynamics, possible cardiorenal syndrome. The patient's urinalysis shows findings of proteinuria but no pyuria, no hematuria, and a CT scan of the abdomen and pelvis showed no evidence of hydronephrosis. Plan at this point is to check a renal ultrasound. Will repeat UA with microanalysis. Will check urine electrolytes. Will continue supportive care, renally dose medications, avoid nephrotoxins, monitor renal function closely. Clinical albuminuria - PER NEPHROLOGY 4 Urinary retention. Underlying etiology is unclear. The patient is status post Flynn catheter placement with good urinary output. Seen by urology still unable to urinate on intermittent catheterizations URECHOLINE - DOSE INCREASED 5. Acute decompensated diastolic heart failure. The patient noted to have pulmonary congestion, lower extremity edema. The patient is status post Lasix; will continue- PER NEPHRO cardiology F-UP 6. History of coronary artery disease, status post coronary artery bypass graft. Continue current medical management. 7. Diabetes. Will continue Accu-Cheks, insulin sliding scale, continue Lantus. HB A1C- 8.1 8. Chronic kidney disease stage IIIB/IV. Etiology is multifactorial secondary to diabetes, hypertension. The patient is currently in acute kidney injury as stated above. Continue medical management. 9. Morbid obesity. Continue dietary modification. 10. Dyslipidemia. Continue statin therapy. 11. Obstructive sleep apnea. Continue supplemental oxygen. Consider a pulmonary consult for evaluation. 12. Hypertension- POORLY CONTROLLED Continue current blood pressure regimen. Will adjust medications as needed. CARDIOLOGY F-UP 13. History of peripheral vascular disease. Continue current medical management. 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 SEVERE DJD/OA WITH CHRONIC PAIN 16. GI PROBLEMS- WITH ABD PAIN, DIARRHEA/ ALTERNATING WITH CONSTIPATION GI EVAL AND F-UP Problems: Consultation Date/Type/Reason Admit Date/Time Jun 09, 2016 at 12:22 Initial Consult Date 06/09/16 Type of Consultation: [facility] Referring Provider: SHARLA SOUSA MD 24 HR Interval Summary Free Text/Dictation Yesterday the patient was noted to be hyperkalemic and received a dose of IV Lasix. The patient's respiratory distress improved yesterday after receiving an additional dose of Lasix. This morning the patient was lethargic, did not sleep overnight, but arousable. No other acute events noted. NOW PT IS COMPLAINING ON SEVERE SERVIN AND NEW NUMBNESS OF LUE Exam/Review of Systems Vital Signs Vitals Vital Signs Date Time Temp Pulse Resp B/P Pulse Ox O2 Delivery O2 Flow Rate FiO2 06/20/16 09:28 86 20 95 Nasal Cannula 3.5 06/20/16 07:00 98.7 136/69 06/19/16 20:19 21 Intake and Output 06/19/16 06/19/16 06/20/16 15:00 23:00 07:00 Intake Total 480 ml 600 ml Output Total 1200 ml 900 ml Balance -720 ml -300 ml Exam HEENT: Head is normocephalic. Pupils are reactive to light. NECK: Supple. HEART: Regular rate. LUNGS: Show diminished breath sounds at the base. ABDOMEN: Obese, soft, nontender to palpation. EXTREMITIES: Negative for clubbing or cyanosis. Positive edema. DERMATOLOGIC: No rashes. MUSCULOSKELETAL: Have no joint effusion. NEUROLOGIC: Limited exam, but no obvious focal deficits. Results Result Diagram: 06/20/16 0935 06/20/16 0932 Results 24 hrs Laboratory Tests Test 06/19/16 12:21 06/19/16 15:00 06/19/16 17:03 06/19/16 17:30 Bedside Glucose 207 176 Urine Bacteria FEW Urine Bilirubin NEGATIVE Urine Clarity CLEAR Urine Color LT. YELLOW Urine Epithelial Cells FEW Urine Glucose 0.1% H Urine Hemoglobin NEGATIVE Urine Ketones NEGATIVE Urine Leukocyte Esterase NEGATIVE Urine Microscopic RBC 0-2 Urine Microscopic WBC 2-5 Urine Nitrite NEGATIVE Urine Random Creatinine 47.73 Urine Random Sodium 70 Urine Specific [place] 1.020 Urine Total Protein 85.6 H Urine Urobilinogen 0.2 E.U./dL Urine pH 5.0 Anion Gap 16 Blood Urea Nitrogen 45 H Calcium Level 8.9 Carbon Dioxide Level 24 Chloride Level 106 Creatinine 2.45 H Glucose Level 189 Potassium Level 6.0 H Sodium Level 140 Test 06/19/16 20:31 06/19/16 21:06 06/20/16 08:22 06/20/16 09:32 Bedside Glucose 167 182 Anion Gap 17 H 17 H Blood Urea Nitrogen 46 H 49 H Calcium Level 9.0 8.4 Carbon Dioxide Level 25 24 Chloride Level 107 106 Creatinine 2.58 H 2.55 H Glucose Level 172 190 Potassium Level 5.0 5.3 H Sodium Level 144 142 Magnesium Level 2.3 Phosphorus Level 6.5 H Test 06/20/16 09:35 Basophils # 0.0 Basophils % 0.3 Eosinophils # 0.2 Eosinophils % 2.6 Hematocrit 34.3 L Hemoglobin 10.6 L Lymphocytes # 1.5 Lymphocytes % 25.1 Mean Corpuscular Hemoglobin 31.7 Mean Corpuscular Hemoglobin Concent 30.9 L Mean Corpuscular Volume 102.7 H Mean Platelet Volume 11.2 H Monocytes # 0.6 Monocytes % 9.0 Neutrophils # 3.8 Neutrophils % 62.2 Nucleated Red Blood Cells # 0.0 Nucleated Red Blood Cells % 0.0 Platelet Count 253 Red Blood Count 3.34 L Red Cell Distribution Width 16.0 H White Blood Count 6.1 Medications Medications Current Medications Aspirin (Halfprin) 81 mg DAILY PO Last administered on 06/20/16 10:56; Admin Dose 81 MG; Start 06/10/16 at 09:00 Gabapentin (Neurontin) 600 mg TID PO Last administered on 06/20/16 10:55; Admin Dose 600 MG; Start 06/09/16 at 21:00 Miscellaneous Medication (Bystolic) 20 mg DAILY PO Last administered on 10:54; Admin Dose 20 MG; Start 06/10/16 at 09:00 Pregabalin (Lyrica) 150 mg QHS PO Last administered on 06/18/16 21:42; Admin Dose 150 MG; Start 06/09/16 at 21:00 Valacyclovir HCl (Valtrex) 1,000 mg BID PO Last administered on 06/20/16 10:55 ; Admin Dose 1,000 MG; Start 06/09/16 at 21:00 Miscellaneous Information 1 ea NOTE XX ; Start 06/09/16 at 18:30 Glucose (Glutose) 15 gm Q15M PRN PO DECREASED GLUCOSE; Start 06/09/16 at 18:30 Glucose (Glutose) 22.5 gm Q15M PRN PO DECREASED GLUCOSE; Start 06/09/16 at 18: 30 Dextrose (D50w Syringe) 25 ml Q15M PRN IV DECREASED GLUCOSE; Start 06/09/16 at 18:30 Dextrose (D50w Syringe) 50 ml Q15M PRN IV DECREASED GLUCOSE; Start 06/09/16 at 18:30 Glucagon (Glucagen) 1 mg Q15M PRN IM DECREASED GLUCOSE; Start 06/09/16 at 18:30 Glucose (Glutose) 15 gm Q15M PRN BUCCAL DECREASED GLUCOSE; Start 06/09/16 at 18 :30 Amlodipine Besylate (Norvasc) 10 mg DAILY PO Last administered on 06/20/16 10: 56; Admin Dose 10 MG; Start 06/09/16 at 20:30 Hydromorphone HCl (Dilaudid) 0.5 mg Q4H PRN IV PAIN Last administered on 01:03; Admin Dose 0.5 MG; Start 06/10/16 at 02:30 Methyldopa (Aldomet) 500 mg BID PO Last administered on 06/20/16 10:49; Admin Dose 500 MG; Start 06/10/16 at 02:30 Pantoprazole (Protonix Tab) 40 mg DAILY@06 PO Last administered on 06/20/16 06 :41; Admin Dose 40 MG; Start 06/11/16 at 06:00 Enoxaparin Sodium (Lovenox) 30 mg DAILY SC Last administered on 06/20/16 10:50 ; Admin Dose 30 MG; Start 06/11/16 at 09:00 Clonidine (Catapres) 0.2 mg Q6H PRN PO SBP above 160 Last administered on 10:22; Admin Dose 0.2 MG; Start 06/10/16 at 12:17 Hydralazine HCl (Apresoline) 10 mg Q4H PRN IV SBP >170 Last administered on 00:24; Admin Dose 10 MG; Start 06/10/16 at 15:00 Lorazepam (Ativan) 0.5 mg HS PO Last administered on 06/20/16 03:23; Admin Dose 0.5 MG; Start 06/11/16 at 22:00 Bethanechol Chloride (Urecholine) 25 mg TID PO Last administered on 06/20/16 10:54; Admin Dose 25 MG; Start 06/13/16 at 13:00 Linagliptin (Tradjenta) 5 mg DAILY PO Last administered on 06/20/16 10:54; Admin Dose 5 MG; Start 06/16/16 at 09:00 Capsaicin (Theragen) 1 applic QID TOP Last administered on 06/20/16 10:57; Admin Dose 1 APPLIC; Start 06/15/16 at 21:00 Lidocaine (Lidocaine 5% Oint) 1 applic TID PRN TOP ITCHING/PAIN; Start at 15:30 Docusate Sodium (Colace) 100 mg BID PO Last administered on 06/20/16 10:56; Admin Dose 100 MG; Start 06/16/16 at 15:00 Bisacodyl (Dulcolax) 10 mg DAILY PRN PO CONSTIPATION Last administered on 20:44; Admin Dose 10 MG; Start 06/16/16 at 14:00 Lisinopril (Zestril) 20 mg BID PO Last administered on 06/18/16 21:41; Admin Dose 20 MG; Start 06/17/16 at 21:00; Status Future Hold Guaifenesin/ Dextromethorphan (Robitussin Dm Liquid Cup) 10 ml Q4H PRN PO COUGH ; Start 06/17/16 at 17:30 Insulin Glargine (Lantus) 64 unit DAILY@20 SC Last administered on 06/19/16 20 :36; Admin Dose 64 UNIT; Start 06/18/16 at 20:00 Fluticasone Propionate (Flonase 0.05% Nasal) 1 spray BID NASAL Last administered on 06/20/16 10:46; Admin Dose 1 SPRAY; Start 06/19/16 at 09:00 Insulin Human NPH (Humulin N) 10 unit HS SC Last administered on 06/19/16 21: 28; Admin Dose 10 UNIT; Start 06/19/16 at 21:00 Furosemide (Lasix) 40 mg DAILY PO Last administered on 06/20/16 10:55; Admin Dose 40 MG; Start 06/20/16 at 09:00 Hydralazine HCl (Apresoline) 25 mg Q8 PO ; Start 06/20/16 at 14:00 SHARLA SOUSA MD Jun 20, 2016 12:21
--- NOTE | 2016-06-20 12:40 | CONS ---
Date/Time of Note Date/Time of Note DATE: 06/20/16 TIME: 12:36 Assessment/Plan Assessment/Plan Additional Assessment/Plan Assessment and recommendations; 1. Patient admitted with acute urinary retention. With incidental discovery of right ovarian mass on CT imaging of the abdomen. Awaiting surgery in 48 hours or less. 2. Severe COPD. However patient is not exhibiting any CO2 retention. Mildly hypoxemic. 3. History of CHF. 4. History of diabetes. 5. History of renal insufficiency. 6. Likely underlying sleep apnea. 7. Morbid obesity Continue current treatment. Will reevaluate patient after her abdominal surgery for ovarian mass. The patient likely may end up remaining intubated post surgery. Consultation Date/Type/Reason Admit Date/Time Jun 09, 2016 at 12:22 Initial Consult Date 06/10/16 Type of Consultation: Pulmonary Referring Provider: SHARLA SOUSA MD 24 HR Interval Summary Free Text/Dictation Patient's condition is markedly improved today. Patient now is completely awake alert able to converse in long sentences. Still complains of shortness of breath which according to her has been a chronic chronic complaint for the last several years. Denies any chest pain, sputum production. Any wheezing. No chronic lower extremity edema. General examination; elderly lady currently in no distress awake and alert. Exam/Review of Systems Vital Signs Vitals Vital Signs Date Time Temp Pulse Resp B/P Pulse Ox O2 Delivery O2 Flow Rate FiO2 06/20/16 09:28 86 20 95 Nasal Cannula 3.5 06/20/16 07:00 98.7 136/69 06/19/16 20:19 21 Intake and Output 06/19/16 06/19/16 06/20/16 15:00 23:00 07:00 Intake Total 480 ml 600 ml Output Total 1200 ml 900 ml Balance -720 ml -300 ml Exam HEENT examination; supple neck, JVD difficult to see because of short neck. No thyromegaly. Pharynx is clear. No neck masses. Pupils are midsize and some reactive to light. Chest examination; diminished but clear breath sounds bilaterally. No added sound. S1-S2 audible, no murmurs. Regular rhythm. Abdomen examination; protuberant, nontender. Bowel sounds audible. Extremity examination; chronic appearing 2+ pitting edema involving lower extremities bilaterally. [employer] examination; no focal deficit. Results Result Diagram: 06/20/16 0935 06/20/16 0932 Results 24 hrs Laboratory Tests Test 06/19/16 15:00 06/19/16 17:03 06/19/16 17:30 06/19/16 20:31 Urine Bacteria FEW Urine Bilirubin NEGATIVE Urine Clarity CLEAR Urine Color LT. YELLOW Urine Epithelial Cells FEW Urine Glucose 0.1% H Urine Hemoglobin NEGATIVE Urine Ketones NEGATIVE Urine Leukocyte Esterase NEGATIVE Urine Microscopic RBC 0-2 Urine Microscopic WBC 2-5 Urine Nitrite NEGATIVE Urine Random Creatinine 47.73 Urine Random Sodium 70 Urine Specific [place] 1.020 Urine Total Protein 85.6 H Urine Urobilinogen 0.2 E.U./dL Urine pH 5.0 Bedside Glucose 176 167 Anion Gap 16 Blood Urea Nitrogen 45 H Calcium Level 8.9 Carbon Dioxide Level 24 Chloride Level 106 Creatinine 2.45 H Glucose Level 189 Potassium Level 6.0 H Sodium Level 140 Test 06/19/16 21:06 06/20/16 08:22 06/20/16 09:32 06/20/16 09:35 Anion Gap 17 H 17 H Blood Urea Nitrogen 46 H 49 H Calcium Level 9.0 8.4 Carbon Dioxide Level 25 24 Chloride Level 107 106 Creatinine 2.58 H 2.55 H Glucose Level 172 190 Potassium Level 5.0 5.3 H Sodium Level 144 142 Bedside Glucose 182 Magnesium Level 2.3 Phosphorus Level 6.5 H Basophils # 0.0 Basophils % 0.3 Eosinophils # 0.2 Eosinophils % 2.6 Hematocrit 34.3 L Hemoglobin 10.6 L Lymphocytes # 1.5 Lymphocytes % 25.1 Mean Corpuscular Hemoglobin 31.7 Mean Corpuscular Hemoglobin Concent 30.9 L Mean Corpuscular Volume 102.7 H Mean Platelet Volume 11.2 H Monocytes # 0.6 Monocytes % 9.0 Neutrophils # 3.8 Neutrophils % 62.2 Nucleated Red Blood Cells # 0.0 Nucleated Red Blood Cells % 0.0 Platelet Count 253 Red Blood Count 3.34 L Red Cell Distribution Width 16.0 H White Blood Count 6.1 Medications Medications Current Medications Aspirin (Halfprin) 81 mg DAILY PO Last administered on 06/20/16 10:56; Admin Dose 81 MG; Start 06/10/16 at 09:00 Gabapentin (Neurontin) 600 mg TID PO Last administered on 06/20/16 10:55; Admin Dose 600 MG; Start 06/09/16 at 21:00 Miscellaneous Medication (Bystolic) 20 mg DAILY PO Last administered on 10:54; Admin Dose 20 MG; Start 06/10/16 at 09:00 Pregabalin (Lyrica) 150 mg QHS PO Last administered on 06/18/16 21:42; Admin Dose 150 MG; Start 06/09/16 at 21:00 Valacyclovir HCl (Valtrex) 1,000 mg BID PO Last administered on 06/20/16 10:55 ; Admin Dose 1,000 MG; Start 06/09/16 at 21:00 Miscellaneous Information 1 ea NOTE XX ; Start 06/09/16 at 18:30 Glucose (Glutose) 15 gm Q15M PRN PO DECREASED GLUCOSE; Start 06/09/16 at 18:30 Glucose (Glutose) 22.5 gm Q15M PRN PO DECREASED GLUCOSE; Start 06/09/16 at 18: 30 Dextrose (D50w Syringe) 25 ml Q15M PRN IV DECREASED GLUCOSE; Start 06/09/16 at 18:30 Dextrose (D50w Syringe) 50 ml Q15M PRN IV DECREASED GLUCOSE; Start 06/09/16 at 18:30 Glucagon (Glucagen) 1 mg Q15M PRN IM DECREASED GLUCOSE; Start 06/09/16 at 18:30 Glucose (Glutose) 15 gm Q15M PRN BUCCAL DECREASED GLUCOSE; Start 06/09/16 at 18 :30 Amlodipine Besylate (Norvasc) 10 mg DAILY PO Last administered on 06/20/16 10: 56; Admin Dose 10 MG; Start 06/09/16 at 20:30 Hydromorphone HCl (Dilaudid) 0.5 mg Q4H PRN IV PAIN Last administered on 01:03; Admin Dose 0.5 MG; Start 06/10/16 at 02:30 Methyldopa (Aldomet) 500 mg BID PO Last administered on 06/20/16 10:49; Admin Dose 500 MG; Start 06/10/16 at 02:30 Pantoprazole (Protonix Tab) 40 mg DAILY@06 PO Last administered on 06/20/16 06 :41; Admin Dose 40 MG; Start 06/11/16 at 06:00 Enoxaparin Sodium (Lovenox) 30 mg DAILY SC Last administered on 06/20/16 10:50 ; Admin Dose 30 MG; Start 06/11/16 at 09:00 Clonidine (Catapres) 0.2 mg Q6H PRN PO SBP above 160 Last administered on 10:22; Admin Dose 0.2 MG; Start 06/10/16 at 12:17 Hydralazine HCl (Apresoline) 10 mg Q4H PRN IV SBP >170 Last administered on 00:24; Admin Dose 10 MG; Start 06/10/16 at 15:00 Lorazepam (Ativan) 0.5 mg HS PO Last administered on 06/20/16 03:23; Admin Dose 0.5 MG; Start 06/11/16 at 22:00 Bethanechol Chloride (Urecholine) 25 mg TID PO Last administered on 06/20/16 10:54; Admin Dose 25 MG; Start 06/13/16 at 13:00 Linagliptin (Tradjenta) 5 mg DAILY PO Last administered on 06/20/16 10:54; Admin Dose 5 MG; Start 06/16/16 at 09:00 Capsaicin (Theragen) 1 applic QID TOP Last administered on 06/20/16 10:57; Admin Dose 1 APPLIC; Start 06/15/16 at 21:00 Lidocaine (Lidocaine 5% Oint) 1 applic TID PRN TOP ITCHING/PAIN; Start at 15:30 Docusate Sodium (Colace) 100 mg BID PO Last administered on 06/20/16 10:56; Admin Dose 100 MG; Start 06/16/16 at 15:00 Bisacodyl (Dulcolax) 10 mg DAILY PRN PO CONSTIPATION Last administered on 20:44; Admin Dose 10 MG; Start 06/16/16 at 14:00 Lisinopril (Zestril) 20 mg BID PO Last administered on 06/18/16 21:41; Admin Dose 20 MG; Start 06/17/16 at 21:00; Status Future Hold Guaifenesin/ Dextromethorphan (Robitussin Dm Liquid Cup) 10 ml Q4H PRN PO COUGH ; Start 06/17/16 at 17:30 Insulin Glargine (Lantus) 64 unit DAILY@20 SC Last administered on 06/19/16 20 :36; Admin Dose 64 UNIT; Start 06/18/16 at 20:00 Fluticasone Propionate (Flonase 0.05% Nasal) 1 spray BID NASAL Last administered on 06/20/16 10:46; Admin Dose 1 SPRAY; Start 06/19/16 at 09:00 Insulin Human NPH (Humulin N) 10 unit HS SC Last administered on 06/19/16 21: 28; Admin Dose 10 UNIT; Start 06/19/16 at 21:00 Furosemide (Lasix) 40 mg DAILY PO Last administered on 06/20/16 10:55; Admin Dose 40 MG; Start 06/20/16 at 09:00 Hydralazine HCl (Apresoline) 25 mg Q8 PO ; Start 06/20/16 at 14:00 JAYME POP Jun 20, 2016 12:40
--- NOTE | 2016-06-20 13:55 | CONS ---
Date/Time of Note Date/Time of Note DATE: 06/20/16 TIME: 13:54 Assessment/Plan Assessment/Plan Problems: (1) Type 2 diabetes mellitus with hyperglycemia Status: Chronic Comment: Sugars are better than they were yesterday but they still have some adjustment needs to be done. I will continue adjusting her try and get her into the range of 110-150. Qualifiers: Diabetes mellitus penitentiary insulin use: with penitentiary use Qualified Code : E11.65 - Type 2 diabetes mellitus with hyperglycemia, with long-term current use of insulin (2) Essential (primary) hypertension Status: Chronic Comment: Slight adjustment in PATIENCE inhibitor Consultation Date/Type/Reason Admit Date/Time Jun 09, 2016 at 12:22 Initial Consult Date 06/15/16 Type of Consultation: Endocrinology Reason for Consultation Diabetes mellitus type 2 with poor control; hypertension Referring Provider: SHARLA SOUSA MD Exam/Review of Systems Vital Signs Vitals Vital Signs Date Time Temp Pulse Resp B/P Pulse Ox O2 Delivery O2 Flow Rate FiO2 06/20/16 09:28 86 20 95 Nasal Cannula 3.5 06/20/16 07:00 98.7 136/69 06/19/16 20:19 21 Intake and Output 06/19/16 06/19/16 06/20/16 15:00 23:00 07:00 Intake Total 480 ml 600 ml Output Total 1200 ml 900 ml Balance -720 ml -300 ml Results Result Diagram: 06/20/16 0935 06/20/16 0932 Results 24 hrs Laboratory Tests Test 06/19/16 15:00 06/19/16 17:03 06/19/16 17:30 06/19/16 20:31 Urine Bacteria FEW Urine Bilirubin NEGATIVE Urine Clarity CLEAR Urine Color LT. YELLOW Urine Epithelial Cells FEW Urine Glucose 0.1% H Urine Hemoglobin NEGATIVE Urine Ketones NEGATIVE Urine Leukocyte Esterase NEGATIVE Urine Microscopic RBC 0-2 Urine Microscopic WBC 2-5 Urine Nitrite NEGATIVE Urine Random Creatinine 47.73 Urine Random Sodium 70 Urine Specific [place] 1.020 Urine Total Protein 85.6 H Urine Urobilinogen 0.2 E.U./dL Urine pH 5.0 Bedside Glucose 176 167 Anion Gap 16 Blood Urea Nitrogen 45 H Calcium Level 8.9 Carbon Dioxide Level 24 Chloride Level 106 Creatinine 2.45 H Glucose Level 189 Potassium Level 6.0 H Sodium Level 140 Test 06/19/16 21:06 06/20/16 08:22 06/20/16 09:32 06/20/16 09:35 Anion Gap 17 H 17 H Blood Urea Nitrogen 46 H 49 H Calcium Level 9.0 8.4 Carbon Dioxide Level 25 24 Chloride Level 107 106 Creatinine 2.58 H 2.55 H Glucose Level 172 190 Potassium Level 5.0 5.3 H Sodium Level 144 142 Bedside Glucose 182 Magnesium Level 2.3 Phosphorus Level 6.5 H Basophils # 0.0 Basophils % 0.3 Eosinophils # 0.2 Eosinophils % 2.6 Hematocrit 34.3 L Hemoglobin 10.6 L Lymphocytes # 1.5 Lymphocytes % 25.1 Mean Corpuscular Hemoglobin 31.7 Mean Corpuscular Hemoglobin Concent 30.9 L Mean Corpuscular Volume 102.7 H Mean Platelet Volume 11.2 H Monocytes # 0.6 Monocytes % 9.0 Neutrophils # 3.8 Neutrophils % 62.2 Nucleated Red Blood Cells # 0.0 Nucleated Red Blood Cells % 0.0 Platelet Count 253 Red Blood Count 3.34 L Red Cell Distribution Width 16.0 H White Blood Count 6.1 Test 06/20/16 13:09 Bedside Glucose 231 H Medications Medications Current Medications Aspirin (Halfprin) 81 mg DAILY PO Last administered on 06/20/16 10:56; Admin Dose 81 MG; Start 06/10/16 at 09:00 Gabapentin (Neurontin) 600 mg TID PO Last administered on 06/20/16 10:55; Admin Dose 600 MG; Start 06/09/16 at 21:00 Miscellaneous Medication (Bystolic) 20 mg DAILY PO Last administered on 10:54; Admin Dose 20 MG; Start 06/10/16 at 09:00 Pregabalin (Lyrica) 150 mg QHS PO Last administered on 06/18/16 21:42; Admin Dose 150 MG; Start 06/09/16 at 21:00 Valacyclovir HCl (Valtrex) 1,000 mg BID PO Last administered on 06/20/16 10:55 ; Admin Dose 1,000 MG; Start 06/09/16 at 21:00 Miscellaneous Information 1 ea NOTE XX ; Start 06/09/16 at 18:30 Glucose (Glutose) 15 gm Q15M PRN PO DECREASED GLUCOSE; Start 06/09/16 at 18:30 Glucose (Glutose) 22.5 gm Q15M PRN PO DECREASED GLUCOSE; Start 06/09/16 at 18: 30 Dextrose (D50w Syringe) 25 ml Q15M PRN IV DECREASED GLUCOSE; Start 06/09/16 at 18:30 Dextrose (D50w Syringe) 50 ml Q15M PRN IV DECREASED GLUCOSE; Start 06/09/16 at 18:30 Glucagon (Glucagen) 1 mg Q15M PRN IM DECREASED GLUCOSE; Start 06/09/16 at 18:30 Glucose (Glutose) 15 gm Q15M PRN BUCCAL DECREASED GLUCOSE; Start 06/09/16 at 18 :30 Amlodipine Besylate (Norvasc) 10 mg DAILY PO Last administered on 06/20/16 10: 56; Admin Dose 10 MG; Start 06/09/16 at 20:30 Hydromorphone HCl (Dilaudid) 0.5 mg Q4H PRN IV PAIN Last administered on 01:03; Admin Dose 0.5 MG; Start 06/10/16 at 02:30 Methyldopa (Aldomet) 500 mg BID PO Last administered on 06/20/16 10:49; Admin Dose 500 MG; Start 06/10/16 at 02:30 Pantoprazole (Protonix Tab) 40 mg DAILY@06 PO Last administered on 06/20/16 06 :41; Admin Dose 40 MG; Start 06/11/16 at 06:00 Enoxaparin Sodium (Lovenox) 30 mg DAILY SC Last administered on 06/20/16 10:50 ; Admin Dose 30 MG; Start 06/11/16 at 09:00 Clonidine (Catapres) 0.2 mg Q6H PRN PO SBP above 160 Last administered on 10:22; Admin Dose 0.2 MG; Start 06/10/16 at 12:17 Hydralazine HCl (Apresoline) 10 mg Q4H PRN IV SBP >170 Last administered on 00:24; Admin Dose 10 MG; Start 06/10/16 at 15:00 Lorazepam (Ativan) 0.5 mg HS PO Last administered on 06/20/16 03:23; Admin Dose 0.5 MG; Start 06/11/16 at 22:00 Bethanechol Chloride (Urecholine) 25 mg TID PO Last administered on 06/20/16 10:54; Admin Dose 25 MG; Start 06/13/16 at 13:00 Linagliptin (Tradjenta) 5 mg DAILY PO Last administered on 06/20/16 10:54; Admin Dose 5 MG; Start 06/16/16 at 09:00 Capsaicin (Theragen) 1 applic QID TOP Last administered on 06/20/16 10:57; Admin Dose 1 APPLIC; Start 06/15/16 at 21:00 Lidocaine (Lidocaine 5% Oint) 1 applic TID PRN TOP ITCHING/PAIN; Start at 15:30 Docusate Sodium (Colace) 100 mg BID PO Last administered on 06/20/16 10:56; Admin Dose 100 MG; Start 06/16/16 at 15:00 Bisacodyl (Dulcolax) 10 mg DAILY PRN PO CONSTIPATION Last administered on 20:44; Admin Dose 10 MG; Start 06/16/16 at 14:00 Lisinopril (Zestril) 20 mg BID PO Last administered on 06/18/16 21:41; Admin Dose 20 MG; Start 06/17/16 at 21:00; Status Future Hold Guaifenesin/ Dextromethorphan (Robitussin Dm Liquid Cup) 10 ml Q4H PRN PO COUGH ; Start 06/17/16 at 17:30 Insulin Glargine (Lantus) 64 unit DAILY@20 SC Last administered on 06/19/16 20 :36; Admin Dose 64 UNIT; Start 06/18/16 at 20:00 Fluticasone Propionate (Flonase 0.05% Nasal) 1 spray BID NASAL Last administered on 06/20/16 10:46; Admin Dose 1 SPRAY; Start 06/19/16 at 09:00 Insulin Human NPH (Humulin N) 10 unit HS SC Last administered on 06/19/16 21: 28; Admin Dose 10 UNIT; Start 06/19/16 at 21:00 Furosemide (Lasix) 40 mg DAILY PO Last administered on 06/20/16 10:55; Admin Dose 40 MG; Start 06/20/16 at 09:00 Hydralazine HCl (Apresoline) 25 mg Q8 PO ; Start 06/20/16 at 14:00 CAROLEE GONGORA MD Jun 20, 2016 13:55
--- NOTE | 2016-06-20 16:52 | RADRPT ---
PROCEDURE: CT Brain without contrast. CLINICAL INDICATION: SERVIN, NUMBNESS OF LUE TECHNIQUE: A CT of the brain was performed on a a multidetector CT scanner utilizing axial imaging from the skull base through the vertex without IV contrast. Multiplanar reformatted images were ma de. Images were reviewed on a PACS workstation. The CTDIvol is 39 mGy and the DLP is 872 mGycm. COMPARISON: MRI brain August 06, 2010. FINDINGS: There is mild to moderate age appropriate diffuse cerebral volume loss with sulcal and ventricular d ilatation. No discrete extra-axial fluid collection or masses seen. The ventricles are in the midl ine and of normal contour and configuration. There are extensive confluent regions of diminished at tenuation in the periventricular and subcortical white matter of both cerebral hemispheres. No asso ciated mass effect is seen. There is no intracranial hemorrhage. There is no loss of davis-white di scrimination to suggest acute cortical stroke. There is normal aeration of the visualized paranasal sinuses. IMPRESSION: Atrophy. Extensive white matter disease both cerebral hemispheres compatible with chronic small ves [place] ischemia. No intracranial hemorrhage. Acute white matter infarct or hyperacute cortical infarc t cannot be ruled out. Consider MRI with diffusion weighted imaging for more definitive diagnosis i f clinically indicated. .Micah Phipps MD, MD Date Time Electronically viewed and signed by .Micah Phipps MD, on 06/20/2016 16:51 .A/
--- NOTE | 2016-06-20 17:46 | PN ---
Date/Time of Note Date/Time of Note DATE: 06/20/16 TIME: 17:43 Assessment/Plan VTE Prophylaxis VTE Prophylaxis Intervention: SCD's Lines/Catheters [facility] Urinary Cath still in place: No Assessment/Plan Chief Complaint/Hosp Course Pelvic mass, multiple medical issues, urinary frequency Problems: Assessment/Plan A/P- Clearance appreciated. Surgery schd Wednesday a.m. Will proceed with bowel prep; see orders Subjective 24 Hr Interval Summary Free Text/Dictation S- Anxious to have surgery and ongoing discomfort. Upset that personal pillow missing O- Resp- clear CVS- NSR Abd- unchanged Ext NT mod edema A/P- Clearance appreciated. Surgery schd Wednesday a.m. Will proceed with bowel prep; see orders Exam/Review of Systems Vital Signs Vitals Vital Signs Date Time Temp Pulse Resp B/P Pulse Ox O2 Delivery O2 Flow Rate FiO2 06/20/16 14:41 99 19 94 Nasal Cannula 3.5 06/20/16 07:00 98.7 136/69 06/19/16 20:19 21 Intake and Output 06/19/16 06/19/16 06/20/16 15:00 23:00 07:00 Intake Total 480 ml 600 ml Output Total 1200 ml 900 ml Balance -720 ml -300 ml Results Result Diagram: 06/20/16 0935 06/20/16 0932 Results 24 hrs Laboratory Tests Test 06/19/16 20:31 06/19/16 21:06 06/20/16 08:22 06/20/16 09:32 Bedside Glucose 167 182 Anion Gap 17 H 17 H Blood Urea Nitrogen 46 H 49 H Calcium Level 9.0 8.4 Carbon Dioxide Level 25 24 Chloride Level 107 106 Creatinine 2.58 H 2.55 H Glucose Level 172 190 Potassium Level 5.0 5.3 H Sodium Level 144 142 Magnesium Level 2.3 Phosphorus Level 6.5 H Test 06/20/16 09:35 06/20/16 13:09 Basophils # 0.0 Basophils % 0.3 Eosinophils # 0.2 Eosinophils % 2.6 Hematocrit 34.3 L Hemoglobin 10.6 L Lymphocytes # 1.5 Lymphocytes % 25.1 Mean Corpuscular Hemoglobin 31.7 Mean Corpuscular Hemoglobin Concent 30.9 L Mean Corpuscular Volume 102.7 H Mean Platelet Volume 11.2 H Monocytes # 0.6 Monocytes % 9.0 Neutrophils # 3.8 Neutrophils % 62.2 Nucleated Red Blood Cells # 0.0 Nucleated Red Blood Cells % 0.0 Platelet Count 253 Red Blood Count 3.34 L Red Cell Distribution Width 16.0 H White Blood Count 6.1 Bedside Glucose 231 H Medications Medications Current Medications Aspirin (Halfprin) 81 mg DAILY PO Last administered on 06/20/16 10:56; Admin Dose 81 MG; Start 06/10/16 at 09:00 Gabapentin (Neurontin) 600 mg TID PO Last administered on 06/20/16 15:16; Admin Dose 600 MG; Start 06/09/16 at 21:00 Miscellaneous Medication (Bystolic) 20 mg DAILY PO Last administered on 10:54; Admin Dose 20 MG; Start 06/10/16 at 09:00 Pregabalin (Lyrica) 150 mg QHS PO Last administered on 06/18/16 21:42; Admin Dose 150 MG; Start 06/09/16 at 21:00 Valacyclovir HCl (Valtrex) 1,000 mg BID PO Last administered on 06/20/16 10:55 ; Admin Dose 1,000 MG; Start 06/09/16 at 21:00 Miscellaneous Information 1 ea NOTE XX ; Start 06/09/16 at 18:30 Glucose (Glutose) 15 gm Q15M PRN PO DECREASED GLUCOSE; Start 06/09/16 at 18:30 Glucose (Glutose) 22.5 gm Q15M PRN PO DECREASED GLUCOSE; Start 06/09/16 at 18: 30 Dextrose (D50w Syringe) 25 ml Q15M PRN IV DECREASED GLUCOSE; Start 06/09/16 at 18:30 Dextrose (D50w Syringe) 50 ml Q15M PRN IV DECREASED GLUCOSE; Start 06/09/16 at 18:30 Glucagon (Glucagen) 1 mg Q15M PRN IM DECREASED GLUCOSE; Start 06/09/16 at 18:30 Glucose (Glutose) 15 gm Q15M PRN BUCCAL DECREASED GLUCOSE; Start 06/09/16 at 18 :30 Amlodipine Besylate (Norvasc) 10 mg DAILY PO Last administered on 06/20/16 10: 56; Admin Dose 10 MG; Start 06/09/16 at 20:30 Hydromorphone HCl (Dilaudid) 0.5 mg Q4H PRN IV PAIN Last administered on 01:03; Admin Dose 0.5 MG; Start 06/10/16 at 02:30 Methyldopa (Aldomet) 500 mg BID PO Last administered on 06/20/16 10:49; Admin Dose 500 MG; Start 06/10/16 at 02:30 Pantoprazole (Protonix Tab) 40 mg DAILY@06 PO Last administered on 06/20/16 06 :41; Admin Dose 40 MG; Start 06/11/16 at 06:00 Enoxaparin Sodium (Lovenox) 30 mg DAILY SC Last administered on 06/20/16 10:50 ; Admin Dose 30 MG; Start 06/11/16 at 09:00 Clonidine (Catapres) 0.2 mg Q6H PRN PO SBP above 160 Last administered on 10:22; Admin Dose 0.2 MG; Start 06/10/16 at 12:17 Hydralazine HCl (Apresoline) 10 mg Q4H PRN IV SBP >170 Last administered on 00:24; Admin Dose 10 MG; Start 06/10/16 at 15:00 Lorazepam (Ativan) 0.5 mg HS PO Last administered on 06/20/16 03:23; Admin Dose 0.5 MG; Start 06/11/16 at 22:00 Bethanechol Chloride (Urecholine) 25 mg TID PO Last administered on 06/20/16 15:17; Admin Dose 25 MG; Start 06/13/16 at 13:00 Linagliptin (Tradjenta) 5 mg DAILY PO Last administered on 06/20/16 10:54; Admin Dose 5 MG; Start 06/16/16 at 09:00 Capsaicin (Theragen) 1 applic QID TOP Last administered on 06/20/16 15:17; Admin Dose 1 APPLIC; Start 06/15/16 at 21:00 Lidocaine (Lidocaine 5% Oint) 1 applic TID PRN TOP ITCHING/PAIN; Start at 15:30 Docusate Sodium (Colace) 100 mg BID PO Last administered on 06/20/16 10:56; Admin Dose 100 MG; Start 06/16/16 at 15:00 Bisacodyl (Dulcolax) 10 mg DAILY PRN PO CONSTIPATION Last administered on 20:44; Admin Dose 10 MG; Start 06/16/16 at 14:00 Guaifenesin/ Dextromethorphan (Robitussin Dm Liquid Cup) 10 ml Q4H PRN PO COUGH ; Start 06/17/16 at 17:30 Fluticasone Propionate (Flonase 0.05% Nasal) 1 spray BID NASAL Last administered on 06/20/16 10:46; Admin Dose 1 SPRAY; Start 06/19/16 at 09:00 Insulin Human NPH (Humulin N) 10 unit HS SC Last administered on 06/19/16 21: 28; Admin Dose 10 UNIT; Start 06/19/16 at 21:00 Furosemide (Lasix) 40 mg DAILY PO Last administered on 06/20/16 10:55; Admin Dose 40 MG; Start 06/20/16 at 09:00 Hydralazine HCl (Apresoline) 25 mg Q8 PO Last administered on 06/20/16 15:17; Admin Dose 25 MG; Start 06/20/16 at 14:00 Insulin Glargine (Lantus) 66 unit DAILY@20 SC ; Start 06/20/16 at 20:00 Lisinopril (Zestril) 40 mg BID PO ; Start 06/20/16 at 21:00 HARRIS AVELAR MD Jun 20, 2016 17:46
[2016-06-20] MEDS ORDERED: PEG/ELECTROLYTES 4L BTL PO ONE (19:00)
[2016-06-20] MEDS ORDERED: INSULIN GLARGINE [LANtus] 3 ML PEN SC SCH (20:00)
[2016-06-20] MEDS: PREGABALIN 75 MG CAP PO SCH (21:00)
[2016-06-20] MEDS: NPH, HUMAN INSULIN ISOPHANE 3ML VIAL SC SCH (21:04)
[2016-06-20] MEDS: LISINOPRIL 20 MG TAB PO SCH (21:10)
[2016-06-20 21:34] VITALS: BP 161/74; PULSE 76; RESP 18
[2016-06-20 23:04] VITALS: BP 157/72; RESP 20
[2016-06-21 05:05] LABS: ADD SCAN DIFF NO
[2016-06-21 05:12] LABS: INR 0.88; PROTIME 11.9 Sec (12.2-14.2); PT RATIO 0.9
[2016-06-21 05:13] LABS: BASOPHILS % 0.2 % (0.0-2.0); EOSINOPHILS # 0.1 10^3/ul (0.0-0.5); EOSINOPHILS % 2.3 % (0.0-7.0); LYMPHOCYTES # 1.3 10^3/ul (0.8-2.9); LYMPHOCYTES % 22.8 % (15.0-51.0); MEAN CORPUSCULAR HEMOGLOBIN 31.6 pg (29.0-33.0); MEAN CORPUSCULAR HGB CONC 31.3 g/dl (32.0-37.0); MEAN CORPUSCULAR VOLUME 101.3 fl (82.0-101.0); MEAN PLATELET VOLUME 10.9 fl (7.4-10.4); MONOCYTE # 0.5 10^3/ul (0.3-0.9); MONOCYTES % 8.8 % (0.0-11.0); NEUTROPHIL # 3.7 10^3/ul (1.6-7.5); NEUTROPHILS % 65.4 % (39.0-77.0); PLATELET COUNT 249 10^3/UL (140-415); RED BLOOD COUNT 3.16 10^6/ul (4.20-5.40); RED CELL DISTRIBUTION WIDTH 15.6 % (11.5-14.5); WHITE BLOOD COUNT 5.7 10^3/ul (4.8-10.8)
[2016-06-21 05:49] LABS: POTASSIUM 4.6 mmol/L (3.5-5.1)
[2016-06-21 05:53] LABS: CALCIUM 8.7 mg/dl (8.4-10.2); CREATININE 2.31 mg/dl (0.44-1.00); PHOSPHORUS 5.7 mg/dl (2.5-4.9)
[2016-06-21 05:57] LABS: MAGNESIUM 2.2 mg/dl (1.7-2.5)
[2016-06-21] MEDS: PANTOPRAZOLE (EC) 40 MG TAB PO SCH (06:34)
[2016-06-21] MEDS: INSULIN ASPART [NOVOLOG] 3 ML PEN SC SCH ×8 (07:50→21:00)
[2016-06-21 08:02] VITALS: BP 128/62; RESP 20
[2016-06-21] MEDS: ALBUTEROL/IPRATROPIUM (NEB) 3 ML AMP HHN SCH ×3 (08:28→19:46)
--- NOTE | 2016-06-21 08:45 | PN ---
DATE: 06/21/2016 SUBJECTIVE: The patient is stable. No acute events overnight. No fevers chills, nausea, or vomiti ng. OBJECTIVE: VITAL SIGNS: Blood pressure 120/62, respirations 20, pulse 64, temperature 97.3. HEENT: Head is normocephalic. NECK: Supple. HEART: Regular rate. LUNGS: Show diminished breath sounds at base. ABDOMEN: Soft, nontender to palpation, no rebound or guarding. EXTREMITIES: Negative for clubbing or cyanosis, positive edema. DERMATOLOGIC: No rashes. MUSCULOSKELETAL: No joint effusions. NEUROLOGIC: No change in exam. MEDICATIONS: The patient's medications have been reviewed. LABORATORY DATA: Shows sodium 145, potassium 4.6, chloride 109, BUN 45, creatinine 2.31. White cou nt 5.7, hemoglobin is 10.0, hematocrit 32.0, and platelet count is 249. ASSESSMENT AND PLAN: 1. Nonoliguric acute kidney injury on top of chronic kidney disease with previous baseline creatini ne around 2 mg/dL. The etiology of acute kidney injury is secondary to hemodynamics, PATIENCE inhibitor effect. The patient's renal function has improved after holding PATIENCE inhibitor as it is returning ba ck to baseline. Continue current treatment plan, supportive care, renally dose all medications. 2. Hyperkalemia secondary to PATIENCE inhibitor effect in conjunction with acute kidney injury. The pat ient's potassium levels have normalized. The patient is status post Kayexalate. 3. Acute respiratory failure secondary to diastolic heart failure, COPD, possible obesity hypoventi lation syndrome, sleep apnea. The patient's diuretic therapy has increased. Her breathing has impr [place]. Continue nebulizer, supplemental oxygen. 4. Right ovarian cystic mass, possible neoplasm. The patient is pending laparoscopy tomorrow. 5. Acute decompensated heart therapy. Continue current medical management. Continue Lasix at curr ent dose. 6. Hypertension. Continue current blood pressure regimen. 7. Anemia. Continue to monitor hemoglobin and hematocrit levels. 8. Diabetes. Continue Accu-Cheks and sliding scale. 9. History of coronary artery disease. Continue current treatment plan. 10. History of chronic kidney disease, stage IV, secondary to diabetes, hypertension. The patient is currently in acute kidney injury as stated above. Continue current medical management. 11. Morbid obesity. Continue dietary modification. 12. Sleep apnea. The patient has refused CPAP. Continue supplemental oxygen. 13. Peripheral vascular disease. Continue current treatment plan. 14. Dyslipidemia. Continue statin therapy. 15. Neuropathy. Continue Lyrica. 16. Gastrointestinal and deep venous thrombosis prophylaxis. Continue PPI and Lovenox. Dictated By: CRISTA GAINES/BIRGIT Conf#: [id number] DID#: [id number]
[2016-06-21] MEDS: CAPSAICIN 0.025% 60 GM CR TOP SCH ×4 (09:00→22:04)
[2016-06-21] MEDS: GABAPENTIN 300 MG CAP PO SCH ×3 (09:00→21:00)
[2016-06-21] MEDS: AMLODIPINE 10 MG TAB PO SCH (09:00)
--- NOTE | 2016-06-21 09:01 | CONS ---
Date/Time of Note Date/Time of Note DATE: 06/21/16 TIME: 09:00 Assessment/Plan Assessment/Plan Problems: (1) Type 2 diabetes mellitus with diabetic chronic kidney disease Status: Chronic Comment: Her diabetic control has smoothed out nicely. I expect some variability over the next few days but for now she is approaching a much more acceptable level. 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 Continue current therapeutic (3) Essential (primary) hypertension Status: Chronic Comment: Better control Consultation Date/Type/Reason Admit Date/Time Jun 09, 2016 at 12:22 Initial Consult Date 06/15/16 Type of Consultation: Endocrinology Referring Provider: SHARLA SOUSA MD 24 HR Interval Summary Free Text/Dictation No new complaints Exam/Review of Systems Vital Signs Vitals Vital Signs Date Time Temp Pulse Resp B/P Pulse Ox O2 Delivery O2 Flow Rate FiO2 06/21/16 08:28 68 18 88 21 06/21/16 08:02 97.3 128/62 06/20/16 21:35 Nasal Cannula 3.0 Intake and Output 06/20/16 06/20/16 06/21/16 15:00 23:00 07:00 Intake Total 700 ml 850 ml Output Total 1100 ml 450 ml Balance -400 ml 400 ml Results Result Diagram: 06/21/16 0435 06/21/16 0435 Results 24 hrs Laboratory Tests Test 06/20/16 09:32 06/20/16 09:35 06/20/16 13:09 06/20/16 17:43 Anion Gap 17 H Blood Urea Nitrogen 49 H Calcium Level 8.4 Carbon Dioxide Level 24 Chloride Level 106 Creatinine 2.55 H Glucose Level 190 Magnesium Level 2.3 Phosphorus Level 6.5 H Potassium Level 5.3 H Sodium Level 142 Basophils # 0.0 Basophils % 0.3 Eosinophils # 0.2 Eosinophils % 2.6 Hematocrit 34.3 L Hemoglobin 10.6 L Lymphocytes # 1.5 Lymphocytes % 25.1 Mean Corpuscular Hemoglobin 31.7 Mean Corpuscular Hemoglobin Concent 30.9 L Mean Corpuscular Volume 102.7 H Mean Platelet Volume 11.2 H Monocytes # 0.6 Monocytes % 9.0 Neutrophils # 3.8 Neutrophils % 62.2 Nucleated Red Blood Cells # 0.0 Nucleated Red Blood Cells % 0.0 Platelet Count 253 Red Blood Count 3.34 L Red Cell Distribution Width 16.0 H White Blood Count 6.1 Bedside Glucose 231 H 117 Test 06/20/16 20:55 06/21/16 04:35 06/21/16 08:14 Bedside Glucose 172 117 Anion Gap 17 H Basophils # 0.0 Basophils % 0.2 Blood Urea Nitrogen 45 H Calcium Level 8.7 Carbon Dioxide Level 24 Chloride Level 109 Creatinine 2.31 H Eosinophils # 0.1 Eosinophils % 2.3 Glucose Level 109 # Hematocrit 32.0 L Hemoglobin 10.0 L INR International Normalized Ratio 0.88 Lymphocytes # 1.3 Lymphocytes % 22.8 Magnesium Level 2.2 Mean Corpuscular Hemoglobin 31.6 Mean Corpuscular Hemoglobin Concent 31.3 L Mean Corpuscular Volume 101.3 H Mean Platelet Volume 10.9 H Monocytes # 0.5 Monocytes % 8.8 Neutrophils # 3.7 Neutrophils % 65.4 Nucleated Red Blood Cells # 0.0 Nucleated Red Blood Cells % 0.0 Phosphorus Level 5.7 H Platelet Count 249 Potassium Level 4.6 Prothrombin Time 11.9 L Prothrombin Time Ratio 0.9 Red Blood Count 3.16 L Red Cell Distribution Width 15.6 H Sodium Level 145 H White Blood Count 5.7 Medications Medications Current Medications Gabapentin (Neurontin) 600 mg TID PO Last administered on 06/20/16 21:10; Admin Dose 600 MG; Start 06/09/16 at 21:00 Miscellaneous Medication (Bystolic) 20 mg DAILY PO Last administered on 10:54; Admin Dose 20 MG; Start 06/10/16 at 09:00 Pregabalin (Lyrica) 150 mg QHS PO Last administered on 06/18/16 21:42; Admin Dose 150 MG; Start 06/09/16 at 21:00 Valacyclovir HCl (Valtrex) 1,000 mg BID PO Last administered on 06/20/16 21:10 ; Admin Dose 1,000 MG; Start 06/09/16 at 21:00 Miscellaneous Information 1 ea NOTE XX ; Start 06/09/16 at 18:30 Glucose (Glutose) 15 gm Q15M PRN PO DECREASED GLUCOSE; Start 06/09/16 at 18:30 Glucose (Glutose) 22.5 gm Q15M PRN PO DECREASED GLUCOSE; Start 06/09/16 at 18: 30 Dextrose (D50w Syringe) 25 ml Q15M PRN IV DECREASED GLUCOSE; Start 06/09/16 at 18:30 Dextrose (D50w Syringe) 50 ml Q15M PRN IV DECREASED GLUCOSE; Start 06/09/16 at 18:30 Glucagon (Glucagen) 1 mg Q15M PRN IM DECREASED GLUCOSE; Start 06/09/16 at 18:30 Glucose (Glutose) 15 gm Q15M PRN BUCCAL DECREASED GLUCOSE; Start 06/09/16 at 18 :30 Amlodipine Besylate (Norvasc) 10 mg DAILY PO Last administered on 06/20/16 10: 56; Admin Dose 10 MG; Start 06/09/16 at 20:30 Hydromorphone HCl (Dilaudid) 0.5 mg Q4H PRN IV PAIN Last administered on 01:03; Admin Dose 0.5 MG; Start 06/10/16 at 02:30 Methyldopa (Aldomet) 500 mg BID PO Last administered on 06/20/16 21:10; Admin Dose 500 MG; Start 06/10/16 at 02:30 Pantoprazole (Protonix Tab) 40 mg DAILY@06 PO Last administered on 06/21/16 06 :34; Admin Dose 40 MG; Start 06/11/16 at 06:00 Clonidine (Catapres) 0.2 mg Q6H PRN PO SBP above 160 Last administered on 10:22; Admin Dose 0.2 MG; Start 06/10/16 at 12:17 Hydralazine HCl (Apresoline) 10 mg Q4H PRN IV SBP >170 Last administered on 00:24; Admin Dose 10 MG; Start 06/10/16 at 15:00 Lorazepam (Ativan) 0.5 mg HS PO Last administered on 06/20/16 23:57; Admin Dose 0.5 MG; Start 06/11/16 at 22:00 Bethanechol Chloride (Urecholine) 25 mg TID PO Last administered on 06/20/16 21:06; Admin Dose 25 MG; Start 06/13/16 at 13:00 Linagliptin (Tradjenta) 5 mg DAILY PO Last administered on 06/20/16 10:54; Admin Dose 5 MG; Start 06/16/16 at 09:00 Capsaicin (Theragen) 1 applic QID TOP Last administered on 06/20/16 21:14; Admin Dose 1 APPLIC; Start 06/15/16 at 21:00 Lidocaine (Lidocaine 5% Oint) 1 applic TID PRN TOP ITCHING/PAIN; Start at 15:30 Docusate Sodium (Colace) 100 mg BID PO Last administered on 06/20/16 21:06; Admin Dose 100 MG; Start 06/16/16 at 15:00 Bisacodyl (Dulcolax) 10 mg DAILY PRN PO CONSTIPATION Last administered on 20:44; Admin Dose 10 MG; Start 06/16/16 at 14:00 Guaifenesin/ Dextromethorphan (Robitussin Dm Liquid Cup) 10 ml Q4H PRN PO COUGH ; Start 06/17/16 at 17:30 Fluticasone Propionate (Flonase 0.05% Nasal) 1 spray BID NASAL Last administered on 06/20/16 21:13; Admin Dose 1 SPRAY; Start 06/19/16 at 09:00 Insulin Human NPH (Humulin N) 10 unit HS SC Last administered on 06/20/16 21: 04; Admin Dose 10 UNIT; Start 06/19/16 at 21:00 Furosemide (Lasix) 40 mg DAILY PO Last administered on 06/20/16 10:55; Admin Dose 40 MG; Start 06/20/16 at 09:00 Hydralazine HCl (Apresoline) 25 mg Q8 PO Last administered on 06/21/16 06:35; Admin Dose 25 MG; Start 06/20/16 at 14:00 Insulin Glargine (Lantus) 66 unit DAILY@20 SC Last administered on 06/20/16 21 :00; Admin Dose 66 UNIT; Start 06/20/16 at 20:00 Lisinopril (Zestril) 40 mg BID PO Last administered on 06/20/16 21:10; Admin Dose 40 MG; Start 06/20/16 at 21:00 CAROLEE GONGORA MD Jun 21, 2016 09:01
[2016-06-21] MEDS: FLUTICASONE 0.05% 16 GM NAS SPRAY NASAL SCH ×2 (10:03→21:00)
[2016-06-21] MEDS: VALACYCLOVIR 500 MG TAB PO SCH ×2 (10:05→21:00)
[2016-06-21] MEDS: DOCUSATE SODIUM 100 MG CAP PO SCH ×2 (10:05→21:00)
[2016-06-21] MEDS: LISINOPRIL 20 MG TAB PO SCH ×2 (10:06→22:00)
[2016-06-21] MEDS: METHYLDOPA 500 MG TAB PO SCH ×2 (10:06→22:04)
[2016-06-21] MEDS: FUROSEMIDE 40 MG TAB PO SCH (10:07)
[2016-06-21] MEDS: NEBIVOLOL 5 MG TAB PO SCH (10:09)
[2016-06-21] MEDS: BETHANECHOL 25 MG TAB PO SCH ×3 (10:10→22:04)
[2016-06-21] MEDS: LINAGLIPTIN 5 MG TABLET PO SCH (10:10)
--- NOTE | 2016-06-21 17:36 | RADRPT ---
PROCEDURE: XR Chest. CLINICAL INDICATION: Shortness of breath. TECHNIQUE: Single frontal view. COMPARISON: 06/19/2016. FINDINGS: There is mild interstitial disease bilaterally in the mid and lower lung zones consistent with pulmo nary edema. The lungs are otherwise clear. The heart is enlarged. There is calcification in the aorta consistent with atherosclerosis. There are sternal wires. There is no pleural effusion. There is no pneumothorax. IMPRESSION: 1. Mild pulmonary edema. 2. Cardiomegaly and atherosclerosis. 3. Previous median sternotomy. RPTAT: QQ .Ethan Villanueva MD, MD Date Time Electronically viewed and signed by .Ethan Villanueva MD, MD on 06/21/2016 17:35 .R/
--- NOTE | 2016-06-21 19:18 | CONS ---
Date/Time of Note Date/Time of Note DATE: 06/21/16 TIME: 19:16 Assessment/Plan Assessment/Plan Chief Complaint/Hosp Course 1. A right ovarian cystic mass. Etiology is unclear, concerning for possible malignancy. ca 125-n AMENDMENT to CT AP 06/12/2016 2:01:08 PM Ethan Villanueva MD Comparison is made with prior CT scan of the abdomen and pelvis dated 11/23/2009. The large right adnexal mass measures 6.7 x 8.8 x 7.4 cm on the current study and measured 3.7 x 4.6 x 4.8 cm on 11/23/2009. MRI PELVIS- Large complex cystic right ovarian mass which in a postmenopausal female is worrisome for an ovarian cystic neoplasm. Multiple uterine masses consistent with a leiomyomatous uterus. SEEN BY GYNEONC-will observe urologic response to medication and surgery definitely an option but requires clearance. Would approach laparoscopic and can do LSH/BSO with minilap and stage if needed. D/W PT AND FAMILY- CARDIAC AND PULM CLEARANCE- OBTAINED D/W DR LOWRY SURGERY TOMORROW 2. Anemia. Continue to monitor hemoglobin and hematocrit levels. + component ACD OBSERVE FOR BLEEDING AND HEMOLYSIS SERVIN / NUMBNESS LUE- RESOLVED CT HEAD- NEG 3. Nonoliguric acute kidney injury on top of chronic kidney disease with a previous baseline renal function around 1.5 to 2 mg/dL. Etiology of acute kidney injury is possibly secondary to urinary retention, obstructive uropathy versus hemodynamics, possible cardiorenal syndrome. The patient's urinalysis shows findings of proteinuria but no pyuria, no hematuria, and a CT scan of the abdomen and pelvis showed no evidence of hydronephrosis. Plan at this point is to check a renal ultrasound. Will repeat UA with microanalysis. Will check urine electrolytes. Will continue supportive care, renally dose medications, avoid nephrotoxins, monitor renal function closely. Clinical albuminuria - PER NEPHROLOGY 4 Urinary retention. Underlying etiology is unclear. The patient is status post Flynn catheter placement with good urinary output. Seen by urology still unable to urinate on intermittent catheterizations URECHOLINE - DOSE INCREASED 5. Acute decompensated diastolic heart failure. The patient noted to have pulmonary congestion, lower extremity edema. The patient is status post Lasix; will continue- PER NEPHRO cardiology F-UP CHECK CXR IN AM 6. History of coronary artery disease, status post coronary artery bypass graft. Continue current medical management. 7. Diabetes. Will continue Accu-Cheks, insulin sliding scale, continue Lantus. HB A1C- 8.1 8. Chronic kidney disease stage IIIB/IV. Etiology is multifactorial secondary to diabetes, hypertension. The patient is currently in acute kidney injury as stated above. Continue medical management. 9. Morbid obesity. Continue dietary modification. 10. Dyslipidemia. Continue statin therapy. 11. Obstructive sleep apnea. Continue supplemental oxygen. Consider a pulmonary consult for evaluation. 12. Hypertension- POORLY CONTROLLED Continue current blood pressure regimen. Will adjust medications as needed. CARDIOLOGY F-UP 13. History of peripheral vascular disease. Continue current medical management. 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 SEVERE DJD/OA WITH CHRONIC PAIN 16. GI PROBLEMS- WITH ABD PAIN, DIARRHEA/ ALTERNATING WITH CONSTIPATION GI EVAL AND F-UP Problems: Consultation Date/Type/Reason Admit Date/Time Jun 09, 2016 at 12:22 Initial Consult Date 06/09/16 [facility]ation[facility] Referring Provider: SHARLA SOUSA MD 24 HR Interval Summary Free Text/Dictation The patient is stable. No acute events overnight. No fevers chills, nausea, or vomiting. Exam/Review of Systems Vital Signs Vitals Vital Signs Date Time Temp Pulse Resp B/P Pulse Ox O2 Delivery O2 Flow Rate FiO2 06/21/16 14:51 97 3.0 06/21/16 14:51 79 18 Nasal Cannula 06/21/16 08:28 21 06/21/16 08:02 97.3 128/62 Intake and Output 06/20/16 06/20/16 06/21/16 15:00 23:00 07:00 Intake Total 700 ml 850 ml Output Total 1100 ml 450 ml Balance -400 ml 400 ml Exam OBJECTIVE: HEENT: Head is normocephalic. NECK: Supple. HEART: Regular rate. LUNGS: Show diminished breath sounds at base. ABDOMEN: Soft, nontender to palpation, no rebound or guarding. EXTREMITIES: Negative for clubbing or cyanosis, positive edema. DERMATOLOGIC: No rashes. MUSCULOSKELETAL: No joint effusions. NEUROLOGIC: No change in exam. Results Result Diagram: 06/21/16 0435 06/21/16 0435 Results 24 hrs Laboratory Tests Test 06/20/16 20:55 06/21/16 04:35 06/21/16 08:14 06/21/16 12:33 Bedside Glucose 172 117 108 Anion Gap 17 H Basophils # 0.0 Basophils % 0.2 Blood Urea Nitrogen 45 H Calcium Level 8.7 Carbon Dioxide Level 24 Chloride Level 109 Creatinine 2.31 H Eosinophils # 0.1 Eosinophils % 2.3 Glucose Level 109 # Hematocrit 32.0 L Hemoglobin 10.0 L INR International Normalized Ratio 0.88 Lymphocytes # 1.3 Lymphocytes % 22.8 Magnesium Level 2.2 Mean Corpuscular Hemoglobin 31.6 Mean Corpuscular Hemoglobin Concent 31.3 L Mean Corpuscular Volume 101.3 H Mean Platelet Volume 10.9 H Monocytes # 0.5 Monocytes % 8.8 Neutrophils # 3.7 Neutrophils % 65.4 Nucleated Red Blood Cells # 0.0 Nucleated Red Blood Cells % 0.0 Phosphorus Level 5.7 H Platelet Count 249 Potassium Level 4.6 Prothrombin Time 11.9 L Prothrombin Time Ratio 0.9 Red Blood Count 3.16 L Red Cell Distribution Width 15.6 H Sodium Level 145 H White Blood Count 5.7 Test 06/21/16 17:12 Bedside Glucose 114 Medications Medications Current Medications Gabapentin (Neurontin) 600 mg TID PO Last administered on 06/20/16 21:10; Admin Dose 600 MG; Start 06/09/16 at 21:00 Miscellaneous Medication (Bystolic) 20 mg DAILY PO Last administered on 10:09; Admin Dose 20 MG; Start 06/10/16 at 09:00 Pregabalin (Lyrica) 150 mg QHS PO Last administered on 06/18/16 21:42; Admin Dose 150 MG; Start 06/09/16 at 21:00 Valacyclovir HCl (Valtrex) 1,000 mg BID PO Last administered on 06/21/16 10:05 ; Admin Dose 1,000 MG; Start 06/09/16 at 21:00 Miscellaneous Information 1 ea NOTE XX ; Start 06/09/16 at 18:30 Glucose (Glutose) 15 gm Q15M PRN PO DECREASED GLUCOSE; Start 06/09/16 at 18:30 Glucose (Glutose) 22.5 gm Q15M PRN PO DECREASED GLUCOSE; Start 06/09/16 at 18: 30 Dextrose (D50w Syringe) 25 ml Q15M PRN IV DECREASED GLUCOSE; Start 06/09/16 at 18:30 Dextrose (D50w Syringe) 50 ml Q15M PRN IV DECREASED GLUCOSE; Start 06/09/16 at 18:30 Glucagon (Glucagen) 1 mg Q15M PRN IM DECREASED GLUCOSE; Start 06/09/16 at 18:30 Glucose (Glutose) 15 gm Q15M PRN BUCCAL DECREASED GLUCOSE; Start 06/09/16 at 18 :30 Amlodipine Besylate (Norvasc) 10 mg DAILY PO Last administered on 06/20/16 10: 56; Admin Dose 10 MG; Start 06/09/16 at 20:30 Hydromorphone HCl (Dilaudid) 0.5 mg Q4H PRN IV PAIN Last administered on 01:03; Admin Dose 0.5 MG; Start 06/10/16 at 02:30 Methyldopa (Aldomet) 500 mg BID PO Last administered on 06/21/16 10:06; Admin Dose 500 MG; Start 06/10/16 at 02:30 Pantoprazole (Protonix Tab) 40 mg DAILY@06 PO Last administered on 06/21/16 06 :34; Admin Dose 40 MG; Start 06/11/16 at 06:00 Clonidine (Catapres) 0.2 mg Q6H PRN PO SBP above 160 Last administered on 10:22; Admin Dose 0.2 MG; Start 06/10/16 at 12:17 Hydralazine HCl (Apresoline) 10 mg Q4H PRN IV SBP >170 Last administered on 00:24; Admin Dose 10 MG; Start 06/10/16 at 15:00 Lorazepam (Ativan) 0.5 mg HS PO Last administered on 06/20/16 23:57; Admin Dose 0.5 MG; Start 06/11/16 at 22:00 Bethanechol Chloride (Urecholine) 25 mg TID PO Last administered on 06/21/16 10:10; Admin Dose 25 MG; Start 06/13/16 at 13:00 Linagliptin (Tradjenta) 5 mg DAILY PO Last administered on 06/21/16 10:10; Admin Dose 5 MG; Start 06/16/16 at 09:00 Capsaicin (Theragen) 1 applic QID TOP Last administered on 06/20/16 21:14; Admin Dose 1 APPLIC; Start 06/15/16 at 21:00 Lidocaine (Lidocaine 5% Oint) 1 applic TID PRN TOP ITCHING/PAIN; Start at 15:30 Docusate Sodium (Colace) 100 mg BID PO Last administered on 06/21/16 10:05; Admin Dose 100 MG; Start 06/16/16 at 15:00 Bisacodyl (Dulcolax) 10 mg DAILY PRN PO CONSTIPATION Last administered on 20:44; Admin Dose 10 MG; Start 06/16/16 at 14:00 Guaifenesin/ Dextromethorphan (Robitussin Dm Liquid Cup) 10 ml Q4H PRN PO COUGH ; Start 06/17/16 at 17:30 Fluticasone Propionate (Flonase 0.05% Nasal) 1 spray BID NASAL Last administered on 06/21/16 10:03; Admin Dose 1 SPRAY; Start 06/19/16 at 09:00 Insulin Human NPH (Humulin N) 10 unit HS SC Last administered on 06/20/16 21: 04; Admin Dose 10 UNIT; Start 06/19/16 at 21:00; Status Future Hold Furosemide (Lasix) 40 mg DAILY PO Last administered on 06/21/16 10:07; Admin Dose 40 MG; Start 06/20/16 at 09:00 Hydralazine HCl (Apresoline) 25 mg Q8 PO Last administered on 06/21/16 17:37; Admin Dose 25 MG; Start 06/20/16 at 14:00 Lisinopril (Zestril) 40 mg BID PO Last administered on 06/21/16 10:06; Admin Dose 40 MG; Start 06/20/16 at 21:00 Insulin Glargine (Lantus) 46 unit DAILY@20 SC ; Start 06/21/16 at 20:00 SHARLA SOUSA MD Jun 21, 2016 19:18
[2016-06-21] MEDS ORDERED: FUROSEMIDE 40 MG INJ IV SCH (19:30)
[2016-06-21] MEDS: INSULIN GLARGINE [LANtus] 3 ML PEN SC SCH (20:00)
[2016-06-21 20:23] VITALS: BP 167/70; RESP 20
[2016-06-21] MEDS: LORAZEPAM 0.5 MG TAB PO SCH (21:00)
[2016-06-21] MEDS: PREGABALIN 75 MG CAP PO SCH (21:00)
[2016-06-21 23:24] VITALS: BP 183/86; PULSE 74; RESP 20
[2016-06-21] MEDS: hydrALAzine 20 MG INJ IV PRN (23:24)
[2016-06-22] VITALS (13 sets, daily range): BP systolic 121–156; BP diastolic 58–82; PULSE 62–103; RESP 15–26
[2016-06-22] MEDS: PANTOPRAZOLE (EC) 40 MG TAB PO SCH ×2 (05:35→09:39)
[2016-06-22 05:48] LABS: ADD SCAN DIFF NO
[2016-06-22 05:53] LABS: BASOPHILS % 0.4 % (0.0-2.0); EOSINOPHILS # 0.1 10^3/ul (0.0-0.5); EOSINOPHILS % 1.9 % (0.0-7.0); HEMOGLOBIN 9.7 g/dl (12.0-16.0); LYMPHOCYTES # 1.5 10^3/ul (0.8-2.9); LYMPHOCYTES % 26.9 % (15.0-51.0); MEAN CORPUSCULAR HEMOGLOBIN 31.3 pg (29.0-33.0); MEAN CORPUSCULAR HGB CONC 31.3 g/dl (32.0-37.0); MEAN PLATELET VOLUME 11.2 fl (7.4-10.4); MONOCYTE # 0.5 10^3/ul (0.3-0.9); NEUTROPHIL # 3.3 10^3/ul (1.6-7.5); NEUTROPHILS % 60.4 % (39.0-77.0); PLATELET COUNT 264 10^3/UL (140-415); RED CELL DISTRIBUTION WIDTH 15.9 % (11.5-14.5); WHITE BLOOD COUNT 5.4 10^3/ul (4.8-10.8)
[2016-06-22 06:06] LABS: POTASSIUM 4.6 mmol/L (3.5-5.1)
[2016-06-22 06:09] LABS: CREATININE 2.06 mg/dl (0.44-1.00)
[2016-06-22 06:10] LABS: CALCIUM 8.6 mg/dl (8.4-10.2); PHOSPHORUS 4.1 mg/dl (2.5-4.9)
[2016-06-22] MEDS ORDERED: METHYLENE BLUE 10 MG/ML VIAL ONE (06:45)
[2016-06-22] MEDS ORDERED: THROMBIN 5000 UNIT VIAL ONE (06:45)
--- NOTE | 2016-06-22 06:45 | HPN ---
Date/Time of Note Date/Time of Note DATE: 06/22/16 TIME: 06:45 Interval H&P Admission Note Pt. seen H&P reviewed: No system changes HARRIS AVELAR MD Jun 22, 2016 06:45
[2016-06-22] MEDS: INSULIN ASPART [NOVOLOG] 3 ML PEN SC SCH ×9 (07:50→21:12)
--- NOTE | 2016-06-22 07:55 | RADRPT ---
PROCEDURE: XR Chest. CLINICAL INDICATION: Preop TECHNIQUE: An AP view of the chest was obtained. COMPARISON: Chest x-ray dated 06/21/2016 FINDINGS: There is prominence of the interstitial markings with small left pleural effusion. No pneumothora x is seen. The cardiomediastinal silhouette is mildly enlarged . Calcifications are seen within th e aortic arch. There are post cardiac surgery changes with sternotomy wires. The osseous structures demonstrate senescent changes. IMPRESSION: 1. Findings suggestive of interstitial edema with small left pleural effusion. There is mild improv ed aeration of the left lung base when compared to the prior examination. 2. Mild cardiomegaly and aortic atherosclerosis. RPTAT: HH .Abbey Jaime MD, MD Date Time Electronically viewed and signed by .Abbey Jaime MD, MD on 06/22/2016 07:55 .G/
--- NOTE | 2016-06-22 07:57 | OPPN ---
Date/Time of Note Date/Time of Note DATE: 06/22/16 TIME: 07:51 Post-Anesthesia Notes Post-Anesthesia Note Comments Anesthesia note Called by pts daughter Ashley this am pre-op. She is a [employer] and felt that this morning her mother was not optimal medically and the surgery should be postponed. Additionally, the pt is a difficult intubation, and remained in the ICU intubated for two weeks after her last surgery. This am, SAO2 on O2 was 90-92, pt coughing and short of breath. Decision was made to postpone surgery. Elmo HOBSON,ELMO Galindo MD Jun 22, 2016 07:57
[2016-06-22] MEDS: ALBUTEROL/IPRATROPIUM (NEB) 3 ML AMP HHN SCH ×3 (08:00→19:45)
--- NOTE | 2016-06-22 08:10 | PN ---
Date/Time of Note Date/Time of Note DATE: 06/22/16 TIME: 08:03 Assessment/Plan VTE Prophylaxis VTE Prophylaxis Intervention: SCD's Lines/Catheters IV Catheter Type (from [facility]): [facility] Urinary Cath still in place: No Assessment/Plan Chief Complaint/Hosp Course Pelvic mass, multiple medical issues, urinary frequency Problems: Assessment/Plan A- surgery cancelled per anesthesia because daughter indicated concern about clearance, although patient aware of risks and benefits and cleared by doctors P- Discussed with patient and offered "open' procedure under regional anesthesia (with interpretation) as opposed to laparoscopy with regional and general. Patient wants minimally invasive procedure as opposed to incision if at all possible. Will discuss with Dr. Suarez to determine whether additional pulmonary clearance is needed/possible. Subjective 24 Hr Interval Summary Free Text/Dictation S- Patient in abdominal discomfort and upset over surgery being cancelled O- Resp- clear CVS- NSR Abd- No chg Ext- NT A- surgery cancelled per anesthesia because daughter indicated concern about clearance, although patient aware of risks and benefits and cleared by doctors P- Discussed with patient and offered "open' procedure under regional anesthesia (with interpretation) as opposed to laparoscopy with regional and general. Patient wants minimally invasive procedure as opposed to incision if at all possible. Will discuss with Dr. Suarez to determine whether additional pulmonary clearance is needed/possible. Exam/Review of Systems Vital Signs Vitals Vital Signs Date Time Temp Pulse Resp B/P Pulse Ox O2 Delivery O2 Flow Rate FiO2 06/22/16 04:44 97.3 71 20 149/70 92 Room Air 06/22/16 02:49 3.0 06/21/16 19:47 32 Intake and Output 06/21/16 06/21/16 06/22/16 15:00 23:00 07:00 Intake Total 2500 ml 240 ml Balance 2500 ml 240 ml Results Result Diagram: 06/22/16 0443 06/22/16 0443 Results 24 hrs Laboratory Tests Test 06/21/16 08:14 06/21/16 12:33 06/21/16 17:12 06/21/16 21:57 Bedside Glucose 117 108 114 169 Test 06/22/16 04:36 06/22/16 04:43 06/22/16 06:30 Bedside Glucose 117 112 Anion Gap 18 H Basophils # 0.0 Basophils % 0.4 Blood Urea Nitrogen 37 H Calcium Level 8.6 Carbon Dioxide Level 26 Chloride Level 106 Creatinine 2.06 H Eosinophils # 0.1 Eosinophils % 1.9 Glucose Level 112 Hematocrit 31.0 L Hemoglobin 9.7 L Lymphocytes # 1.5 Lymphocytes % 26.9 Magnesium Level 2.0 Mean Corpuscular Hemoglobin 31.3 Mean Corpuscular Hemoglobin Concent 31.3 L Mean Corpuscular Volume 100.0 Mean Platelet Volume 11.2 H Monocytes # 0.5 Monocytes % 10.0 Neutrophils # 3.3 Neutrophils % 60.4 Nucleated Red Blood Cells # 0.0 Nucleated Red Blood Cells % 0.0 Phosphorus Level 4.1 Platelet Count 264 Potassium Level 4.6 Red Blood Count 3.10 L Red Cell Distribution Width 15.9 H Sodium Level 145 H White Blood Count 5.4 Medications Medications Current Medications Gabapentin (Neurontin) 600 mg TID PO Last administered on 06/20/16 21:10; Admin Dose 600 MG; Start 06/09/16 at 21:00 Miscellaneous Medication (Bystolic) 20 mg DAILY PO Last administered on 10:09; Admin Dose 20 MG; Start 06/10/16 at 09:00 Pregabalin (Lyrica) 150 mg QHS PO Last administered on 06/18/16 21:42; Admin Dose 150 MG; Start 06/09/16 at 21:00 Valacyclovir HCl (Valtrex) 1,000 mg BID PO Last administered on 06/21/16 10:05 ; Admin Dose 1,000 MG; Start 06/09/16 at 21:00 Miscellaneous Information 1 ea NOTE XX ; Start 06/09/16 at 18:30 Glucose (Glutose) 15 gm Q15M PRN PO DECREASED GLUCOSE; Start 06/09/16 at 18:30 Glucose (Glutose) 22.5 gm Q15M PRN PO DECREASED GLUCOSE; Start 06/09/16 at 18: 30 Dextrose (D50w Syringe) 25 ml Q15M PRN IV DECREASED GLUCOSE; Start 06/09/16 at 18:30 Dextrose (D50w Syringe) 50 ml Q15M PRN IV DECREASED GLUCOSE; Start 06/09/16 at 18:30 Glucagon (Glucagen) 1 mg Q15M PRN IM DECREASED GLUCOSE; Start 06/09/16 at 18:30 Glucose (Glutose) 15 gm Q15M PRN BUCCAL DECREASED GLUCOSE; Start 06/09/16 at 18 :30 Amlodipine Besylate (Norvasc) 10 mg DAILY PO Last administered on 06/20/16 10: 56; Admin Dose 10 MG; Start 06/09/16 at 20:30 Hydromorphone HCl (Dilaudid) 0.5 mg Q4H PRN IV PAIN Last administered on 01:03; Admin Dose 0.5 MG; Start 06/10/16 at 02:30 Methyldopa (Aldomet) 500 mg BID PO Last administered on 06/21/16 22:04; Admin Dose 500 MG; Start 06/10/16 at 02:30 Pantoprazole (Protonix Tab) 40 mg DAILY@06 PO Last administered on 06/21/16 06 :34; Admin Dose 40 MG; Start 06/11/16 at 06:00 Clonidine (Catapres) 0.2 mg Q6H PRN PO SBP above 160 Last administered on 10:22; Admin Dose 0.2 MG; Start 06/10/16 at 12:17 Hydralazine HCl (Apresoline) 10 mg Q4H PRN IV SBP >170 Last administered on 23:24; Admin Dose 10 MG; Start 06/10/16 at 15:00 Lorazepam (Ativan) 0.5 mg HS PO Last administered on 06/20/16 23:57; Admin Dose 0.5 MG; Start 06/11/16 at 22:00 Bethanechol Chloride (Urecholine) 25 mg TID PO Last administered on 06/21/16 22:04; Admin Dose 25 MG; Start 06/13/16 at 13:00 Linagliptin (Tradjenta) 5 mg DAILY PO Last administered on 06/21/16 10:10; Admin Dose 5 MG; Start 06/16/16 at 09:00 Capsaicin (Theragen) 1 applic QID TOP Last administered on 06/21/16 22:04; Admin Dose 1 APPLIC; Start 06/15/16 at 21:00 Lidocaine (Lidocaine 5% Oint) 1 applic TID PRN TOP ITCHING/PAIN; Start at 15:30 Docusate Sodium (Colace) 100 mg BID PO Last administered on 06/21/16 10:05; Admin Dose 100 MG; Start 06/16/16 at 15:00 Bisacodyl (Dulcolax) 10 mg DAILY PRN PO CONSTIPATION Last administered on 20:44; Admin Dose 10 MG; Start 06/16/16 at 14:00 Guaifenesin/ Dextromethorphan (Robitussin Dm Liquid Cup) 10 ml Q4H PRN PO COUGH ; Start 06/17/16 at 17:30 Fluticasone Propionate (Flonase 0.05% Nasal) 1 spray BID NASAL Last administered on 06/21/16 10:03; Admin Dose 1 SPRAY; Start 06/19/16 at 09:00 Insulin Human NPH (Humulin N) 10 unit HS SC Last administered on 06/20/16 21: 04; Admin Dose 10 UNIT; Start 06/19/16 at 21:00; Status Future Hold Furosemide (Lasix) 40 mg DAILY PO Last administered on 06/21/16 10:07; Admin Dose 40 MG; Start 06/20/16 at 09:00 Hydralazine HCl (Apresoline) 25 mg Q8 PO Last administered on 06/21/16 22:01; Admin Dose 25 MG; Start 06/20/16 at 14:00 Lisinopril (Zestril) 40 mg BID PO Last administered on 06/21/16 22:00; Admin Dose 40 MG; Start 06/20/16 at 21:00 Insulin Glargine (Lantus) 46 unit DAILY@20 SC ; Start 06/21/16 at 20:00 HARRIS AVELAR MD Jun 22, 2016 08:10
[2016-06-22] MEDS: CAPSAICIN 0.025% 60 GM CR TOP SCH ×4 (08:25→21:08)
[2016-06-22] MEDS: DOCUSATE SODIUM 100 MG CAP PO SCH ×2 (09:00→21:00)
--- NOTE | 2016-06-22 09:06 | CONS ---
Date/Time of Note Date/Time of Note DATE: 06/22/16 TIME: 09:01 Assessment/Plan Assessment/Plan Additional Assessment/Plan Chest x-ray was reviewed from today which is showing interstitial prominence which has been a stable finding. Next Assessment recommendations; next 1. Patient admitted with acute urinary retention with incidental discovery of right ovarian mass seen on CT of the abdomen. 2. History of coronary artery disease status post bypass surgery. 3. Morbid obesity. 4. COPD. 5. Chronic lower extremity edema. 6. Renal insufficiency. With stable serum creatinine. Chest x-ray findings represent likely interstitial scarring. t this time I would not recommend diuresing the patient more aggressively than what we are currently doing as that would pose a significant risk for anesthesia with a high risk of developing severe hypotension during induction. It is my belief that the patient is already quite optimized and further optimization would be difficult to achieve considering her multiple comorbidities. It is for the family to decide whether they would want to take the risk of surgery or not. Consultation Date/Type/Reason Admit Date/Time Jun 09, 2016 at 12:22 Initial Consult Date 06/10/16 Type of Consultation: Pulmonary Referring Provider: SHARLA SOUSA MD 24 HR Interval Summary Free Text/Dictation Patient condition is stable. Sitting in a chair by bedside. Complains of shortness of breath which has been a chronic complaint dating back several years. Has any cough, wheezing, chest pain, fever chills. Next General examination; elderly woman currently in no distress. Awake and alert. Exam/Review of Systems Vital Signs Vitals Vital Signs Date Time Temp Pulse Resp B/P Pulse Ox O2 Delivery O2 Flow Rate FiO2 06/22/16 04:44 97.3 71 20 149/70 92 Room Air 06/22/16 02:49 3.0 06/21/16 19:47 32 Intake and Output 06/21/16 06/21/16 06/22/16 15:00 23:00 07:00 Intake Total 2500 ml 240 ml Balance 2500 ml 240 ml Exam HEENT examination; supple neck, JVD difficult to see because of short neck. Pharynx is clear. Pupils are midsize bilaterally. No neck masses. No thyromegaly. Chest examination; diminished but clear breath sounds bilaterally. S1-S2 audible, no murmurs. Regular rhythm. There is a well-healed sternal scar. Abdomen examination; protuberant, nontender. Bowel sounds audible. Extremity examination; chronic appearing 2+ mildly pitting edema in lower extremities. [employer] examination; no focal deficit. Results Result Diagram: 06/22/163 06/22/16442 Results 24 hrs Laboratory Tests Test 06/21/16 12:33 06/21/16 17:12 06/21/16 21:57 06/22/16 04:36 Bedside Glucose 108 114 169 117 Test 06/22/16 04:43 06/22/16 06:30 Anion Gap 18 H Basophils # 0.0 Basophils % 0.4 Blood Urea Nitrogen 37 H Calcium Level 8.6 Carbon Dioxide Level 26 Chloride Level 106 Creatinine 2.06 H Eosinophils # 0.1 Eosinophils % 1.9 Glucose Level 112 Hematocrit 31.0 L Hemoglobin 9.7 L Lymphocytes # 1.5 Lymphocytes % 26.9 Magnesium Level 2.0 Mean Corpuscular Hemoglobin 31.3 Mean Corpuscular Hemoglobin Concent 31.3 L Mean Corpuscular Volume 100.0 Mean Platelet Volume 11.2 H Monocytes # 0.5 Monocytes % 10.0 Neutrophils # 3.3 Neutrophils % 60.4 Nucleated Red Blood Cells # 0.0 Nucleated Red Blood Cells % 0.0 Phosphorus Level 4.1 Platelet Count 264 Potassium Level 4.6 Red Blood Count 3.10 L Red Cell Distribution Width 15.9 H Sodium Level 145 H White Blood Count 5.4 Bedside Glucose 112 Medications Medications Current Medications Gabapentin (Neurontin) 600 mg TID PO Last administered on 06/20/16 21:10; Admin Dose 600 MG; Start 06/09/16 at 21:00 Miscellaneous Medication (Bystolic) 20 mg DAILY PO Last administered on 10:09; Admin Dose 20 MG; Start 06/10/16 at 09:00 Pregabalin (Lyrica) 150 mg QHS PO Last administered on 06/18/16 21:42; Admin Dose 150 MG; Start 06/09/16 at 21:00 Valacyclovir HCl (Valtrex) 1,000 mg BID PO Last administered on 06/21/16 10:05 ; Admin Dose 1,000 MG; Start 06/09/16 at 21:00 Miscellaneous Information 1 ea NOTE XX ; Start 06/09/16 at 18:30 Glucose (Glutose) 15 gm Q15M PRN PO DECREASED GLUCOSE; Start 06/09/16 at 18:30 Glucose (Glutose) 22.5 gm Q15M PRN PO DECREASED GLUCOSE; Start 06/09/16 at 18: 30 Dextrose (D50w Syringe) 25 ml Q15M PRN IV DECREASED GLUCOSE; Start 06/09/16 at 18:30 Dextrose (D50w Syringe) 50 ml Q15M PRN IV DECREASED GLUCOSE; Start 06/09/16 at 18:30 Glucagon (Glucagen) 1 mg Q15M PRN IM DECREASED GLUCOSE; Start 06/09/16 at 18:30 Glucose (Glutose) 15 gm Q15M PRN BUCCAL DECREASED GLUCOSE; Start 06/09/16 at 18 :30 Amlodipine Besylate (Norvasc) 10 mg DAILY PO Last administered on 06/20/16 10: 56; Admin Dose 10 MG; Start 06/09/16 at 20:30 Hydromorphone HCl (Dilaudid) 0.5 mg Q4H PRN IV PAIN Last administered on 01:03; Admin Dose 0.5 MG; Start 06/10/16 at 02:30 Methyldopa (Aldomet) 500 mg BID PO Last administered on 06/21/16 22:04; Admin Dose 500 MG; Start 06/10/16 at 02:30 Pantoprazole (Protonix Tab) 40 mg DAILY@06 PO Last administered on 06/21/16 06 :34; Admin Dose 40 MG; Start 06/11/16 at 06:00 Clonidine (Catapres) 0.2 mg Q6H PRN PO SBP above 160 Last administered on 10:22; Admin Dose 0.2 MG; Start 06/10/16 at 12:17 Hydralazine HCl (Apresoline) 10 mg Q4H PRN IV SBP >170 Last administered on 23:24; Admin Dose 10 MG; Start 06/10/16 at 15:00 Lorazepam (Ativan) 0.5 mg HS PO Last administered on 06/20/16 23:57; Admin Dose 0.5 MG; Start 06/11/16 at 22:00 Bethanechol Chloride (Urecholine) 25 mg TID PO Last administered on 06/21/16 22:04; Admin Dose 25 MG; Start 06/13/16 at 13:00 Linagliptin (Tradjenta) 5 mg DAILY PO Last administered on 06/21/16 10:10; Admin Dose 5 MG; Start 06/16/16 at 09:00 Capsaicin (Theragen) 1 applic QID TOP Last administered on 06/21/16 22:04; Admin Dose 1 APPLIC; Start 06/15/16 at 21:00 Lidocaine (Lidocaine 5% Oint) 1 applic TID PRN TOP ITCHING/PAIN; Start at 15:30 Docusate Sodium (Colace) 100 mg BID PO Last administered on 06/21/16 10:05; Admin Dose 100 MG; Start 06/16/16 at 15:00 Bisacodyl (Dulcolax) 10 mg DAILY PRN PO CONSTIPATION Last administered on 20:44; Admin Dose 10 MG; Start 06/16/16 at 14:00 Guaifenesin/ Dextromethorphan (Robitussin Dm Liquid Cup) 10 ml Q4H PRN PO COUGH ; Start 06/17/16 at 17:30 Fluticasone Propionate (Flonase 0.05% Nasal) 1 spray BID NASAL Last administered on 06/21/16 10:03; Admin Dose 1 SPRAY; Start 06/19/16 at 09:00 Insulin Human NPH (Humulin N) 10 unit HS SC Last administered on 06/20/16 21: 04; Admin Dose 10 UNIT; Start 06/19/16 at 21:00; Status Future Hold Hydralazine HCl (Apresoline) 25 mg Q8 PO Last administered on 06/21/16 22:01; Admin Dose 25 MG; Start 06/20/16 at 14:00 Insulin Glargine (Lantus) 46 unit DAILY@20 SC ; Start 06/21/16 at 20:00 Lisinopril (Zestril) 20 mg DAILY PO ; Start 06/22/16 at 09:00; Status JAYME FLORES Jun 22, 2016 09:05
[2016-06-22] MEDS: LINAGLIPTIN 5 MG TABLET PO SCH (09:38)
[2016-06-22] MEDS: VALACYCLOVIR 500 MG TAB PO SCH ×2 (09:38→22:28)
[2016-06-22] MEDS: FUROSEMIDE 40 MG INJ IV SCH ×2 (09:38→18:00)
[2016-06-22] MEDS: GABAPENTIN 300 MG CAP PO SCH ×3 (09:39→21:15)
[2016-06-22] MEDS: BETHANECHOL 25 MG TAB PO SCH ×3 (09:39→22:28)
[2016-06-22] MEDS: NEBIVOLOL 5 MG TAB PO SCH (09:39)
[2016-06-22] MEDS: LISINOPRIL 20 MG TAB PO SCH (09:42)
[2016-06-22] MEDS: AMLODIPINE 10 MG TAB PO SCH (09:43)
[2016-06-22] MEDS: METHYLDOPA 500 MG TAB PO SCH ×2 (09:43→21:00)
[2016-06-22] MEDS: FLUTICASONE 0.05% 16 GM NAS SPRAY NASAL SCH ×2 (09:45→21:08)
--- NOTE | 2016-06-22 09:54 | PN ---
DATE: 06/22/2016 SUBJECTIVE: The patient overnight was complaining of some shortness of breath. A chest x-ray perfo rmed this morning showed evidence of interstitial edema. The patient is currently stable on 2 liter s nasal cannula. No other acute events noted. No hemoptysis, hematemesis or hematochezia. OBJECTIVE: VITAL SIGNS: Blood pressure 149/70, respirations 20, pulse 71, temperature 97.3. HEENT: Head is normocephalic. NECK: Supple. HEART: Regular rate. LUNGS: Show diminished breath sounds at the base. Positive rhonchi. ABDOMEN: Soft, nontender to palpation. No rebound or guarding. EXTREMITIES: Negative for clubbing, cyanosis. Positive edema. DERMATOLOGIC: No rashes. MUSCULOSKELETAL: No joint effusions. NEUROLOGIC: No change in exam. MEDICATIONS: The patient's medications have been reviewed. LABORATORY DATA: Shows sodium 145, potassium 4.6, chloride 106, BUN 37, creatinine 2.07. White cou nt 5.4, hemoglobin 9.7, hematocrit of 131, platelet count is 264. IMAGING: Chest x-ray shows interstitial edema with small pleural effusion. ASSESSMENT AND PLAN: 1. Nonoliguric acute kidney injury on top of chronic kidney disease with a baseline creatinine arou nd 2 mg/dL. Etiology of acute kidney injury was secondary to hemodynamics and PATIENCE inhibitor. The p atmaricarmen's renal functions improved after discontinuing PATIENCE inhibitor. We will continue current treat ment plan, supportive care, renally dose all medications. 2. Acute decompensated diastolic heart failure. The patient's chest x-ray shows worsening edema. We will intensify Lasix 40 mg IV b.i.d. Monitor I's and O's closely. Will follow up with cardiolog y for further recommendations. 3. Acute hypoxemic respiratory failure secondary to diastolic heart failure, COPD and sleep apnea. Continue current medical management. Continue supplemental oxygen. Continue diuretic therapy, con tinue nebulizers. 4. 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 The patient is pending possible laparoscopi c surgery once clinically stable and more optimized. 5. Hypertension. Continue current blood pressure regimen. 6. Anemia. Continue to monitor hemoglobin and hematocrit levels. 7. Diabetes, continue Accu-Cheks and sliding scale. 8. History of coronary artery disease. Continue current medical management. 9. Chronic kidney disease stage IV secondary to diabetes, hypertension. The patient's renal functi on is returning back to baseline. Continue current treatment plan. 10. Morbid obesity. Continue dietary modification. 11. Sleep apnea. Continue supplemental oxygen. Patient is refusing CPAP. 12. Peripheral vascular disease. Continue current treatment plan. 13. Dyslipidemia. Continue statin therapy. 14. Neuropathy. Continue Lyrica. 15. Gastrointestinal and deep venous thrombosis prophylaxis. Continue proton pump inhibitor and Lo venox. Dictated By: CRISTA GAINES/BIRGIT Conf#: [id number] DID#: [id number]
--- NOTE | 2016-06-22 10:08 | CONS ---
Date/Time of Note Date/Time of Note DATE: 06/22/16 TIME: 09:57 Assessment/Plan Assessment/Plan Chief Complaint/Hosp Course Acute on chronic diastolic heart failure: EF preserved. Was euvolemic on my last assessment but now decompensated. Timeline of events suggests it may have been from the 4L of golytely she received in prep for surgery. Agree with diuresis and postponing surgery for now. Chest pain: Likely secondary to volume overload but with h/o CAD/CABG will need to evaluate by serial trops, EKG. Accelerated HTN: BPs overall controlled and much better than admission, but elevated at times. Ovarian mass: Being evaluated by heme/onc.Surgery on hold Urinary retention: required martinez. now better Acute on chronic renal failure: improved after obstruction resolved. Stable h/o CAD s/p CABG DM PVD s/p renal stent -agree with lasix 40mg IV BID for now -ASA, statin -check EKG, serial trops -continue amlodipine 10mg, lisinopril 20mg BID -hydralazine 25mg q8h -continue home nebivolol, methyldopa -will follow Problems: Consultation Date/Type/Reason Admit Date/Time Jun 09, 2016 at 12:22 Initial Consult Date 06/10/16 Type of Consultation: Cardiology Referring Provider: SHARLA SOUSA MD 24 HR Interval Summary Free Text/Dictation Overnight pt was given 4L go-lytely in prep for surgery. Over this same period of time she has been having worsening SOB and orthopnea. She is unable to lay flat. She also notes some mild chest pressure. Her surgery has been postponed. Exam/Review of Systems Vital Signs Vitals Vital Signs Date Time Temp Pulse Resp B/P Pulse Ox O2 Delivery O2 Flow Rate FiO2 06/22/16 04:44 97.3 71 20 149/70 92 Room Air 06/22/16 02:49 3.0 06/21/16 19:47 32 Intake and Output 06/21/16 06/21/16 06/22/16 15:00 23:00 07:00 Intake Total 2500 ml 240 ml Balance 2500 ml 240 ml Exam Constitutional: alert, distress (mild respiratory ), oriented Head: atraumatic, normocephalic Neck: jvd (9cm) Respiratory: crackles/rales, diminished breath sounds Cardiovascular: edema (2+), regular rate and rhythm, systolic murmur (2/6) Gastrointestinal: non-tender, soft Neurological: nl mental status, nl speech Results Result Diagram: 06/22/1644206/22/16442 Results 24 hrs Laboratory Tests Test 06/21/16 12:33 06/21/16 17:12 06/21/16 21:57 06/22/16 04:36 Bedside Glucose 108 114 169 117 Test 06/22/16 04:43 06/22/16 06:30 Anion Gap 18 H Basophils # 0.0 Basophils % 0.4 Blood Urea Nitrogen 37 H Calcium Level 8.6 Carbon Dioxide Level 26 Chloride Level 106 Creatinine 2.06 H Eosinophils # 0.1 Eosinophils % 1.9 Glucose Level 112 Hematocrit 31.0 L Hemoglobin 9.7 L Lymphocytes # 1.5 Lymphocytes % 26.9 Magnesium Level 2.0 Mean Corpuscular Hemoglobin 31.3 Mean Corpuscular Hemoglobin Concent 31.3 L Mean Corpuscular Volume 100.0 Mean Platelet Volume 11.2 H Monocytes # 0.5 Monocytes % 10.0 Neutrophils # 3.3 Neutrophils % 60.4 Nucleated Red Blood Cells # 0.0 Nucleated Red Blood Cells % 0.0 Phosphorus Level 4.1 Platelet Count 264 Potassium Level 4.6 Red Blood Count 3.10 L Red Cell Distribution Width 15.9 H Sodium Level 145 H White Blood Count 5.4 Bedside Glucose 112 Medications Medications Current Medications Gabapentin (Neurontin) 600 mg TID PO Last administered on 06/22/16 09:39; Admin Dose 600 MG; Start 06/09/16 at 21:00 Miscellaneous Medication (Bystolic) 20 mg DAILY PO Last administered on 09:39; Admin Dose 20 MG; Start 06/10/16 at 09:00 Pregabalin (Lyrica) 150 mg QHS PO Last administered on 06/18/16 21:42; Admin Dose 150 MG; Start 06/09/16 at 21:00 Valacyclovir HCl (Valtrex) 1,000 mg BID PO Last administered on 06/22/16 09:38 ; Admin Dose 1,000 MG; Start 06/09/16 at 21:00 Miscellaneous Information 1 ea NOTE XX ; Start 06/09/16 at 18:30 Glucose (Glutose) 15 gm Q15M PRN PO DECREASED GLUCOSE; Start 06/09/16 at 18:30 Glucose (Glutose) 22.5 gm Q15M PRN PO DECREASED GLUCOSE; Start 06/09/16 at 18: 30 Dextrose (D50w Syringe) 25 ml Q15M PRN IV DECREASED GLUCOSE; Start 06/09/16 at 18:30 Dextrose (D50w Syringe) 50 ml Q15M PRN IV DECREASED GLUCOSE; Start 06/09/16 at 18:30 Glucagon (Glucagen) 1 mg Q15M PRN IM DECREASED GLUCOSE; Start 06/09/16 at 18:30 Glucose (Glutose) 15 gm Q15M PRN BUCCAL DECREASED GLUCOSE; Start 06/09/16 at 18 :30 Amlodipine Besylate (Norvasc) 10 mg DAILY PO Last administered on 06/22/16 09: 43; Admin Dose 10 MG; Start 06/09/16 at 20:30 Hydromorphone HCl (Dilaudid) 0.5 mg Q4H PRN IV PAIN Last administered on 01:03; Admin Dose 0.5 MG; Start 06/10/16 at 02:30 Methyldopa (Aldomet) 500 mg BID PO Last administered on 06/22/16 09:43; Admin Dose 500 MG; Start 06/10/16 at 02:30 Pantoprazole (Protonix Tab) 40 mg DAILY@06 PO Last administered on 06/22/16 09 :39; Admin Dose 40 MG; Start 06/11/16 at 06:00 Clonidine (Catapres) 0.2 mg Q6H PRN PO SBP above 160 Last administered on 10:22; Admin Dose 0.2 MG; Start 06/10/16 at 12:17 Hydralazine HCl (Apresoline) 10 mg Q4H PRN IV SBP >170 Last administered on 23:24; Admin Dose 10 MG; Start 06/10/16 at 15:00 Lorazepam (Ativan) 0.5 mg HS PO Last administered on 06/20/16 23:57; Admin Dose 0.5 MG; Start 06/11/16 at 22:00 Bethanechol Chloride (Urecholine) 25 mg TID PO Last administered on 06/22/16 09:39; Admin Dose 25 MG; Start 06/13/16 at 13:00 Linagliptin (Tradjenta) 5 mg DAILY PO Last administered on 06/22/16 09:38; Admin Dose 5 MG; Start 06/16/16 at 09:00 Capsaicin (Theragen) 1 applic QID TOP Last administered on 06/21/16 22:04; Admin Dose 1 APPLIC; Start 06/15/16 at 21:00 Lidocaine (Lidocaine 5% Oint) 1 applic TID PRN TOP ITCHING/PAIN; Start at 15:30 Docusate Sodium (Colace) 100 mg BID PO Last administered on 06/21/16 10:05; Admin Dose 100 MG; Start 06/16/16 at 15:00 Bisacodyl (Dulcolax) 10 mg DAILY PRN PO CONSTIPATION Last administered on 20:44; Admin Dose 10 MG; Start 06/16/16 at 14:00 Guaifenesin/ Dextromethorphan (Robitussin Dm Liquid Cup) 10 ml Q4H PRN PO COUGH ; Start 06/17/16 at 17:30 Fluticasone Propionate (Flonase 0.05% Nasal) 1 spray BID NASAL Last administered on 06/22/16 09:45; Admin Dose 1 SPRAY; Start 06/19/16 at 09:00 Insulin Human NPH (Humulin N) 10 unit HS SC Last administered on 06/20/16 21: 04; Admin Dose 10 UNIT; Start 06/19/16 at 21:00; Status Future Hold Hydralazine HCl (Apresoline) 25 mg Q8 PO Last administered on 06/21/16 22:01; Admin Dose 25 MG; Start 06/20/16 at 14:00 Insulin Glargine (Lantus) 46 unit DAILY@20 SC ; Start 06/21/16 at 20:00 Lisinopril (Zestril) 20 mg DAILY PO Last administered on 06/22/16 09:42; Admin Dose 20 MG; Start 06/22/16 at 09:00 AMISHA NIETO Jun 22, 2016 10:07
[2016-06-22] MEDS: ALBUTEROL/IPRATROPIUM (NEB) 3 ML AMP HHN PRN (10:24)
[2016-06-22] MEDS: morphine 2 MG INJ IV PRN ×2 (10:50→20:59)
--- NOTE | 2016-06-22 13:32 | CONS ---
Date/Time of Note Date/Time of Note DATE: 06/22/16 TIME: 13:27 Assessment/Plan Assessment/Plan Problems: (1) Type 2 diabetes mellitus with other specified complication Status: Chronic Comment: Doses of insulin again increased over the weekend successfully but pt. made NPO for surgery last night. All day yesterday pt. refusing mealtime insulin. Last night pt. refused lantus and NPH b/c NPO. This has happened with this patient during previous admission as well. I cannot manage DM of pt. who refuses their insulin. If this continues, I will sign off this case and will not see her again in the future. I will order DM education and hopefully signing off will not be necessary. Consultation Date/Type/Reason Admit Date/Time Jun 09, 2016 at 12:22 Initial Consult Date 06/15/16 Type of Consultation: Endocrinology Reason for Consultation [id number] Referring Provider: SHARLA SOUSA MD 24 HR Interval Summary Constitutional: requiring O2 Detailed Summary Respiratory: shortness of breath Cardiovascular: chest pain, orthopenea Gastrointestinal: constipation, decreased appetite Genitourinary: no complaints Musculoskeletal: no complaints Neurologic: no complaints Endocrine: other (refusing insulin when BG normal) Exam/Review of Systems Vital Signs Vitals VS - Last 72 Hours, by Label Date Time Temp Pulse Resp B/P Pulse Ox O2 Delivery O2 Flow Rate FiO2 06/22/16 12:30 72 06/22/16 10:30 97.7 76 18 155/69 92 Nasal Cannula 3.0 06/22/16 10:29 3.0 06/22/16 10:27 84 20 98 Nasal Cannula 3.0 32 06/22/16 07:30 Nasal Cannula 3.0 06/22/16 04:44 97.3 71 20 149/70 92 Room Air 06/22/16 02:49 3.0 06/22/16 00:21 Nasal Cannula 2.0 06/22/16 00:20 97.9 79 19 138/80 93 Nasal Cannula 2.0 06/21/16 23:24 74 20 183/86 94 Nasal Cannula 3.0 06/21/16 20:40 Nasal Cannula 3.0 06/21/16 20:23 98.3 84 20 167/70 92 06/21/16 19:47 74 18 95 Nasal Cannula 3.0 32 06/21/16 19:47 95 3.0 06/21/16 14:51 97 3.0 06/21/16 14:51 79 18 97 Nasal Cannula 3.0 06/21/16 08:28 68 18 88 21 06/21/16 08:02 97.3 64 20 128/62 94 06/21/16 07:40 Nasal Cannula 3.0 06/20/16 23:04 97.5 73 20 157/72 94 06/20/16 21:35 Nasal Cannula 3.0 06/20/16 21:34 98.8 76 18 161/74 3 Nasal Cannula 06/20/16 19:30 22 06/20/16 19:29 93 3.5 06/20/16 19:22 78 28 93 Nasal Cannula 3.5 06/20/16 19:19 82 21 06/20/16 14:41 99 19 94 Nasal Cannula 3.5 06/20/16 09:28 86 20 95 Nasal Cannula 3.5 06/20/16 08:40 Nasal Cannula 3.0 06/20/16 07:00 98.7 69 20 136/69 96 06/20/16 06:51 98.3 73 18 129/69 95 Nasal Cannula 3.0 06/20/16 04:04 98.7 78 18 141/65 92 Nasal Cannula 3.0 06/20/16 03:52 70 22 93 Nasal Cannula 3.0 06/20/16 03:19 3.0 06/19/16 23:58 98.5 77 20 134/64 90 06/19/16 21:10 Nasal Cannula 4.0 06/19/16 20:19 98.4 71 22 142/74 90 06/19/16 20:19 3.0 06/19/16 20:19 72 20 86 21 06/19/16 19:00 Nasal Cannula 3.0 06/19/16 15:43 65 126/61 06/19/16 15:05 Nasal Cannula 3.0 06/19/16 13:34 Nasal Cannula 3.0 Vital Signs Date Time Temp Pulse Resp B/P Pulse Ox O2 Delivery O2 Flow Rate FiO2 06/22/16 12:30 72 06/22/16 10:30 97.7 18 155/69 92 Nasal Cannula 3.0 06/22/16 10:27 32 Intake and Output 06/21/16 06/21/16 06/22/16 15:00 23:00 07:00 Intake Total 2500 ml 240 ml Balance 2500 ml 240 ml Exam Constitutional: alert, obese, oriented Psych: nl mood/affect, no complaints Respiratory: clear to auscultation, normal air movement Cardiovascular: edema (2+ BLE), nl pulses, regular rate and rhythm, No murmurs/extra sounds, No rub Gastrointestinal: bowel sounds, distended, firm, nl liver, spleen, non-tender, No mass, No rebound or guarding Musculoskeletal: nl extremities to inspection Extremities: edema (2+ BLE), normal pulses, No clubbing, No cyanosis Neurological: [employer] II-XII intact, nl mental status, nl speech, nl strength Additional Comments Bedside Glucose - 72 Hours Test 06/19/16 17:03 06/19/16 20:31 06/20/16 08:22 06/20/16 13:09 Bedside Glucose 176mg/dL (70-220) 167mg/dL (70-220) 182mg/dL (70-220) 231mg/dL (70-220) H Test 06/20/16 17:43 06/20/16 20:55 06/21/16 08:14 06/21/16 12:33 Bedside Glucose 117mg/dL (70-220) 172mg/dL (70-220) 117mg/dL (70-220) 108mg/dL (70-220) Test 06/21/16 17:12 06/21/16 21:57 06/22/16 04:36 06/22/16 06:30 Bedside Glucose 114mg/dL (70-220) 169mg/dL (70-220) 117mg/dL (70-220) 112mg/dL (70-220) Test 06/22/16 11:50 Bedside Glucose 187mg/dL (70-220) Results Result Diagram: 06/22/16 0443 06/22/16 0443 Results 24 hrs Laboratory Tests Test 06/21/16 17:12 06/21/16 21:57 06/22/16 04:36 06/22/16 04:43 Bedside Glucose 114 169 117 Anion Gap 18 H Basophils # 0.0 Basophils % 0.4 Blood Urea Nitrogen 37 H Calcium Level 8.6 Carbon Dioxide Level 26 Chloride Level 106 Creatinine 2.06 H Eosinophils # 0.1 Eosinophils % 1.9 Glucose Level 112 Hematocrit 31.0 L Hemoglobin 9.7 L Lymphocytes # 1.5 Lymphocytes % 26.9 Magnesium Level 2.0 Mean Corpuscular Hemoglobin 31.3 Mean Corpuscular Hemoglobin Concent 31.3 L Mean Corpuscular Volume 100.0 Mean Platelet Volume 11.2 H Monocytes # 0.5 Monocytes % 10.0 Neutrophils # 3.3 Neutrophils % 60.4 Nucleated Red Blood Cells # 0.0 Nucleated Red Blood Cells % 0.0 Phosphorus Level 4.1 Platelet Count 264 Potassium Level 4.6 Red Blood Count 3.10 L Red Cell Distribution Width 15.9 H Sodium Level 145 H White Blood Count 5.4 Test 06/22/16 06:30 06/22/16 11:50 06/22/16 12:10 Bedside Glucose 112 187 Troponin I 0.018 Medications Medications Current Medications Gabapentin (Neurontin) 600 mg TID PO Last administered on 06/22/16 09:39; Admin Dose 600 MG; Start 06/09/16 at 21:00 Miscellaneous Medication (Bystolic) 20 mg DAILY PO Last administered on 09:39; Admin Dose 20 MG; Start 06/10/16 at 09:00 Pregabalin (Lyrica) 150 mg QHS PO Last administered on 06/18/16 21:42; Admin Dose 150 MG; Start 06/09/16 at 21:00 Valacyclovir HCl (Valtrex) 1,000 mg BID PO Last administered on 06/22/16 09:38 ; Admin Dose 1,000 MG; Start 06/09/16 at 21:00 Miscellaneous Information 1 ea NOTE XX ; Start 06/09/16 at 18:30 Glucose (Glutose) 15 gm Q15M PRN PO DECREASED GLUCOSE; Start 06/09/16 at 18:30 Glucose (Glutose) 22.5 gm Q15M PRN PO DECREASED GLUCOSE; Start 06/09/16 at 18: 30 Dextrose (D50w Syringe) 25 ml Q15M PRN IV DECREASED GLUCOSE; Start 06/09/16 at 18:30 Dextrose (D50w Syringe) 50 ml Q15M PRN IV DECREASED GLUCOSE; Start 06/09/16 at 18:30 Glucagon (Glucagen) 1 mg Q15M PRN IM DECREASED GLUCOSE; Start 06/09/16 at 18:30 Glucose (Glutose) 15 gm Q15M PRN BUCCAL DECREASED GLUCOSE; Start 06/09/16 at 18 :30 Amlodipine Besylate (Norvasc) 10 mg DAILY PO Last administered on 06/22/16 09: 43; Admin Dose 10 MG; Start 06/09/16 at 20:30 Hydromorphone HCl (Dilaudid) 0.5 mg Q4H PRN IV PAIN Last administered on 01:03; Admin Dose 0.5 MG; Start 06/10/16 at 02:30 Methyldopa (Aldomet) 500 mg BID PO Last administered on 06/22/16 09:43; Admin Dose 500 MG; Start 06/10/16 at 02:30 Pantoprazole (Protonix Tab) 40 mg DAILY@06 PO Last administered on 06/22/16 09 :39; Admin Dose 40 MG; Start 06/11/16 at 06:00 Clonidine (Catapres) 0.2 mg Q6H PRN PO SBP above 160 Last administered on 10:22; Admin Dose 0.2 MG; Start 06/10/16 at 12:17 Hydralazine HCl (Apresoline) 10 mg Q4H PRN IV SBP >170 Last administered on 23:24; Admin Dose 10 MG; Start 06/10/16 at 15:00 Lorazepam (Ativan) 0.5 mg HS PO Last administered on 06/20/16 23:57; Admin Dose 0.5 MG; Start 06/11/16 at 22:00 Bethanechol Chloride (Urecholine) 25 mg TID PO Last administered on 06/22/16 09:39; Admin Dose 25 MG; Start 06/13/16 at 13:00 Linagliptin (Tradjenta) 5 mg DAILY PO Last administered on 06/22/16 09:38; Admin Dose 5 MG; Start 06/16/16 at 09:00 Capsaicin (Theragen) 1 applic QID TOP Last administered on 06/21/16 22:04; Admin Dose 1 APPLIC; Start 06/15/16 at 21:00 Lidocaine (Lidocaine 5% Oint) 1 applic TID PRN TOP ITCHING/PAIN; Start at 15:30 Docusate Sodium (Colace) 100 mg BID PO Last administered on 06/21/16 10:05; Admin Dose 100 MG; Start 06/16/16 at 15:00 Bisacodyl (Dulcolax) 10 mg DAILY PRN PO CONSTIPATION Last administered on 20:44; Admin Dose 10 MG; Start 06/16/16 at 14:00 Guaifenesin/ Dextromethorphan (Robitussin Dm Liquid Cup) 10 ml Q4H PRN PO COUGH ; Start 06/17/16 at 17:30 Fluticasone Propionate (Flonase 0.05% Nasal) 1 spray BID NASAL Last administered on 06/22/16 09:45; Admin Dose 1 SPRAY; Start 06/19/16 at 09:00 Insulin Human NPH (Humulin N) 10 unit HS SC Last administered on 06/20/16 21: 04; Admin Dose 10 UNIT; Start 06/19/16 at 21:00; Status Future Hold Hydralazine HCl (Apresoline) 25 mg Q8 PO Last administered on 06/21/16 22:01; Admin Dose 25 MG; Start 06/20/16 at 14:00 Insulin Glargine (Lantus) 46 unit DAILY@20 SC ; Start 06/21/16 at 20:00 Lisinopril (Zestril) 20 mg DAILY PO Last administered on 06/22/16 09:42; Admin Dose 20 MG; Start 06/22/16 at 09:00 Atorvastatin Calcium (Lipitor) 40 mg HS PO ; Start 06/22/16 at 21:00 Nitroglycerin (Nitroglycerin 0.4 Mg/Hr) 1 patch DAILY TRANSDERM ; Start at 11:30 Morphine Sulfate (morphine) 2 mg Q4H PRN IV pain Last administered on 10:50; Admin Dose 2 MG; Start 06/22/16 at 10:30 NICOLLE GONZALES MD Jun 22, 2016 13:32
[2016-06-22 16:08] LABS: MICROALBUMIN 49.3 mg/dL
[2016-06-22] MEDS: NITROGLYCERIN 0.4 MG/HR PATCH TRANSDERM SCH (16:41)
[2016-06-22] MEDS: INSULIN GLARGINE [LANtus] 3 ML PEN SC SCH (20:00)
--- NOTE | 2016-06-22 20:05 | EN ---
Date/Time of Note Date/Time of Note DATE: 06/22/16 TIME: 20:03 Event Note Endocrinology Endocrinology Event Note Pt. continues to dictate the amount of insulin she wishes to take and the amount of insulin she refuses to take. There is no need for specialized endocrinology on this case. Primary team can easily give patient the doses she requests. I will sign off for now. Please reconsult when patient requires expertise. NICOLLE GONZALES MD Jun 22, 2016 20:05
[2016-06-22] MEDS: LORAZEPAM 0.5 MG TAB PO SCH (21:15)
[2016-06-22] MEDS: ATORVASTATIN 40 MG TAB PO SCH (21:15)
--- NOTE | 2016-06-22 22:19 | CONS ---
Date/Time of Note Date/Time of Note DATE: 06/22/16 TIME: 22:15 Assessment/Plan Assessment/Plan Chief Complaint/Hosp Course 1. A right ovarian cystic mass. Etiology is unclear, concerning for possible malignancy. ca 125-n AMENDMENT to CT AP 06/12/2016 2:01:08 PM Ethan Villanueva MD Comparison is made with prior CT scan of the abdomen and pelvis dated 11/23/2009. The large right adnexal mass measures 6.7 x 8.8 x 7.4 cm on the current study and measured 3.7 x 4.6 x 4.8 cm on 11/23/2009. MRI PELVIS- Large complex cystic right ovarian mass which in a postmenopausal female is worrisome for an ovarian cystic neoplasm. Multiple uterine masses consistent with a leiomyomatous uterus. SEEN BY GYNEONC-will observe urologic response to medication and surgery definitely an option but requires clearance. Would approach laparoscopic and can do LSH/BSO with minilap and stage if needed. D/W PT AND FAMILY- CARDIAC AND PULM CLEARANCE- OBTAINED D/W DR LOWRY SURGERY ON HOLD 2 TO SOB AND INCREASED EDEMA PT IS IV LASIX AROUND THE CLOCK 2. Anemia. Continue to monitor hemoglobin and hematocrit levels. + component ACD OBSERVE FOR BLEEDING AND HEMOLYSIS SERVIN / NUMBNESS LUE- RESOLVED CT HEAD- NEG 3. Nonoliguric acute kidney injury on top of chronic kidney disease with a previous baseline renal function around 1.5 to 2 mg/dL. Etiology of acute kidney injury is possibly secondary to urinary retention, obstructive uropathy versus hemodynamics, possible cardiorenal syndrome. The patient's urinalysis shows findings of proteinuria but no pyuria, no hematuria, and a CT scan of the abdomen and pelvis showed no evidence of hydronephrosis. Plan at this point is to check a renal ultrasound. Will repeat UA with microanalysis. Will check urine electrolytes. Will continue supportive care, renally dose medications, avoid nephrotoxins, monitor renal function closely. Clinical albuminuria - PER NEPHROLOGY 4 Urinary retention. Underlying etiology is unclear. The patient is status post Flynn catheter placement with good urinary output. Seen by urology still unable to urinate on intermittent catheterizations URECHOLINE - DOSE INCREASED 5. Acute decompensated diastolic heart failure. The patient noted to have pulmonary congestion, lower extremity edema. The patient is status post Lasix; will continue- PER NEPHRO cardiology F-UP CHECK CXR IN AM 6. History of coronary artery disease, status post coronary artery bypass graft. Continue current medical management. 7. Diabetes. Will continue Accu-Cheks, insulin sliding scale, continue Lantus. HB A1C- 8.1 8. Chronic kidney disease stage IIIB/IV. Etiology is multifactorial secondary to diabetes, hypertension. The patient is currently in acute kidney injury as stated above. Continue medical management. 9. Morbid obesity. Continue dietary modification. 10. Dyslipidemia. Continue statin therapy. 11. Obstructive sleep apnea. Continue supplemental oxygen. Consider a pulmonary consult for evaluation. 12. Hypertension- POORLY CONTROLLED Continue current blood pressure regimen. Will adjust medications as needed. CARDIOLOGY F-UP 13. History of peripheral vascular disease. Continue current medical management. 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 SEVERE DJD/OA WITH CHRONIC PAIN 16. GI PROBLEMS- WITH ABD PAIN, DIARRHEA/ ALTERNATING WITH CONSTIPATION GI EVAL AND F-UP Problems: Consultation Date/Type/Reason Admit Date/Time Jun 09, 2016 at 12:22 Initial Consult Date 06/09/16 [facility] Referring Provider: SHARLA SOUSA MD 24 HR Interval Summary Free Text/Dictation SURGERY ON HOLD INCREASED SOB AND EDEMA Exam/Review of Systems Vital Signs Vitals Vital Signs Date Time Temp Pulse Resp B/P Pulse Ox O2 Delivery O2 Flow Rate FiO2 06/22/16 20:24 72 06/22/16 20:00 98.2 18 136/61 90 06/22/16 18:32 2.0 06/22/16 18:00 Nasal Cannula 06/22/16 10:27 32 Intake and Output 06/21/16 06/21/16 06/22/16 15:00 23:00 07:00 Intake Total 2500 ml 240 ml Balance 2500 ml 240 ml Exam HEENT: Head is normocephalic. NECK: Supple. HEART: Regular rate. LUNGS: Show diminished breath sounds at the base. Positive rhonchi. ABDOMEN: Soft, nontender to palpation. No rebound or guarding. EXTREMITIES: Negative for clubbing, cyanosis. Positive edema. DERMATOLOGIC: No rashes. MUSCULOSKELETAL: No joint effusions. NEUROLOGIC: No change in exam. Results Result Diagram: 06/22/16 0443 06/22/16 0443 Results 24 hrs Laboratory Tests Test 06/22/16 04:36 06/22/16 04:43 06/22/16 06:30 06/22/16 11:50 Bedside Glucose 117 112 187 Anion Gap 18 H Basophils # 0.0 Basophils % 0.4 Blood Urea Nitrogen 37 H Calcium Level 8.6 Carbon Dioxide Level 26 Chloride Level 106 Creatinine 2.06 H Eosinophils # 0.1 Eosinophils % 1.9 Glucose Level 112 Hematocrit 31.0 L Hemoglobin 9.7 L Lymphocytes # 1.5 Lymphocytes % 26.9 Magnesium Level 2.0 Mean Corpuscular Hemoglobin 31.3 Mean Corpuscular Hemoglobin Concent 31.3 L Mean Corpuscular Volume 100.0 Mean Platelet Volume 11.2 H Monocytes # 0.5 Monocytes % 10.0 Neutrophils # 3.3 Neutrophils % 60.4 Nucleated Red Blood Cells # 0.0 Nucleated Red Blood Cells % 0.0 Phosphorus Level 4.1 Platelet Count 264 Potassium Level 4.6 Red Blood Count 3.10 L Red Cell Distribution Width 15.9 H Sodium Level 145 H White Blood Count 5.4 Test 06/22/16 12:10 06/22/16 13:50 06/22/16 14:10 06/22/16 16:44 Troponin I 0.018 0.015 Bedside Glucose 195 133 Test 06/22/16 18:05 06/22/16 18:38 06/22/16 20:03 Troponin I 0.016 Bedside Glucose 169 238 H Medications Medications Current Medications Gabapentin (Neurontin) 600 mg TID PO Last administered on 06/22/16 21:15; Admin Dose 600 MG; Start 06/09/16 at 21:00 Miscellaneous Medication (Bystolic) 20 mg DAILY PO Last administered on 09:39; Admin Dose 20 MG; Start 06/10/16 at 09:00 Pregabalin (Lyrica) 150 mg QHS PO Last administered on 06/18/16 21:42; Admin Dose 150 MG; Start 06/09/16 at 21:00 Valacyclovir HCl (Valtrex) 1,000 mg BID PO Last administered on 06/22/16 09:38 ; Admin Dose 1,000 MG; Start 06/09/16 at 21:00 Miscellaneous Information 1 ea NOTE XX ; Start 06/09/16 at 18:30 Glucose (Glutose) 15 gm Q15M PRN PO DECREASED GLUCOSE; Start 06/09/16 at 18:30 Glucose (Glutose) 22.5 gm Q15M PRN PO DECREASED GLUCOSE; Start 06/09/16 at 18: 30 Dextrose (D50w Syringe) 25 ml Q15M PRN IV DECREASED GLUCOSE; Start 06/09/16 at 18:30 Dextrose (D50w Syringe) 50 ml Q15M PRN IV DECREASED GLUCOSE; Start 06/09/16 at 18:30 Glucagon (Glucagen) 1 mg Q15M PRN IM DECREASED GLUCOSE; Start 06/09/16 at 18:30 Glucose (Glutose) 15 gm Q15M PRN BUCCAL DECREASED GLUCOSE; Start 06/09/16 at 18 :30 Amlodipine Besylate (Norvasc) 10 mg DAILY PO Last administered on 06/22/16 09: 43; Admin Dose 10 MG; Start 06/09/16 at 20:30 Hydromorphone HCl (Dilaudid) 0.5 mg Q4H PRN IV PAIN Last administered on 01:03; Admin Dose 0.5 MG; Start 06/10/16 at 02:30 Methyldopa (Aldomet) 500 mg BID PO Last administered on 06/22/16 21:00; Admin Dose 500 MG; Start 06/10/16 at 02:30 Pantoprazole (Protonix Tab) 40 mg DAILY@06 PO Last administered on 06/22/16 09 :39; Admin Dose 40 MG; Start 06/11/16 at 06:00 Clonidine (Catapres) 0.2 mg Q6H PRN PO SBP above 160 Last administered on 10:22; Admin Dose 0.2 MG; Start 06/10/16 at 12:17 Hydralazine HCl (Apresoline) 10 mg Q4H PRN IV SBP >170 Last administered on 23:24; Admin Dose 10 MG; Start 06/10/16 at 15:00 Lorazepam (Ativan) 0.5 mg HS PO Last administered on 06/22/16 21:15; Admin Dose 0.5 MG; Start 06/11/16 at 22:00 Bethanechol Chloride (Urecholine) 25 mg TID PO Last administered on 06/22/16 14:12; Admin Dose 25 MG; Start 06/13/16 at 13:00 Linagliptin (Tradjenta) 5 mg DAILY PO Last administered on 06/22/16 09:38; Admin Dose 5 MG; Start 06/16/16 at 09:00 Capsaicin (Theragen) 1 applic QID TOP Last administered on 06/22/16 21:08; Admin Dose 1 APPLIC; Start 06/15/16 at 21:00 Lidocaine (Lidocaine 5% Oint) 1 applic TID PRN TOP ITCHING/PAIN; Start at 15:30 Docusate Sodium (Colace) 100 mg BID PO Last administered on 06/22/16 21:00; Admin Dose 100 MG; Start 06/16/16 at 15:00 Bisacodyl (Dulcolax) 10 mg DAILY PRN PO CONSTIPATION Last administered on 20:44; Admin Dose 10 MG; Start 06/16/16 at 14:00 Guaifenesin/ Dextromethorphan (Robitussin Dm Liquid Cup) 10 ml Q4H PRN PO COUGH ; Start 06/17/16 at 17:30 Fluticasone Propionate (Flonase 0.05% Nasal) 1 spray BID NASAL Last administered on 06/22/16 21:08; Admin Dose 1 SPRAY; Start 06/19/16 at 09:00 Insulin Human NPH (Humulin N) 10 unit HS SC Last administered on 06/20/16 21: 04; Admin Dose 10 UNIT; Start 06/19/16 at 21:00; Status Future Hold Hydralazine HCl (Apresoline) 25 mg Q8 PO Last administered on 06/22/16 14:12; Admin Dose 25 MG; Start 06/20/16 at 14:00 Insulin Glargine (Lantus) 46 unit DAILY@20 SC ; Start 06/21/16 at 20:00 Lisinopril (Zestril) 20 mg DAILY PO Last administered on 06/22/16 09:42; Admin Dose 20 MG; Start 06/22/16 at 09:00 Atorvastatin Calcium (Lipitor) 40 mg HS PO Last administered on 06/22/16 21:15 ; Admin Dose 40 MG; Start 06/22/16 at 21:00 Nitroglycerin (Nitroglycerin 0.4 Mg/Hr) 1 patch DAILY TRANSDERM Last administered on 06/22/16 16:41; Admin Dose 1 PATCH; Start 06/22/16 at 11:30 Morphine Sulfate (morphine) 2 mg Q4H PRN IV pain Last administered on t 20:59; Admin Dose 2 MG; Start 06/22/16 at 10:30 SHARLA SOUSA MD Jun 22, 2016 22:19
[2016-06-22] MEDS: PREGABALIN 75 MG CAP PO SCH (22:28)
[2016-06-23] VITALS (10 sets, daily range): BP systolic 129–142; BP diastolic 60–66; PULSE 63–72; RESP 18–20
[2016-06-23] MEDS: morphine 2 MG INJ IV PRN (00:31)
[2016-06-23] MEDS: PANTOPRAZOLE (EC) 40 MG TAB PO SCH (06:59)
[2016-06-23] MEDS: FUROSEMIDE 40 MG INJ IV SCH ×2 (07:00→17:39)
[2016-06-23] MEDS ORDERED: INSULIN ASPART [NOVOLOG] 3 ML PEN SC SCH (07:55)
[2016-06-23] MEDS: INSULIN ASPART [NOVOLOG] 3 ML PEN SC SCH ×9 (07:55→21:00)
[2016-06-23] MEDS: ALBUTEROL/IPRATROPIUM (NEB) 3 ML AMP HHN SCH ×3 (08:00→19:49)
[2016-06-23] MEDS: VALACYCLOVIR 500 MG TAB PO SCH ×2 (08:20→22:10)
[2016-06-23] MEDS: DOCUSATE SODIUM 100 MG CAP PO SCH ×2 (08:20→22:10)
[2016-06-23] MEDS: LINAGLIPTIN 5 MG TABLET PO SCH (08:20)
[2016-06-23] MEDS: BETHANECHOL 25 MG TAB PO SCH ×3 (08:20→22:10)
[2016-06-23] MEDS: GABAPENTIN 300 MG CAP PO SCH ×3 (08:20→22:09)
[2016-06-23] MEDS: NITROGLYCERIN 0.4 MG/HR PATCH TRANSDERM SCH (08:21)
[2016-06-23] MEDS: AMLODIPINE 10 MG TAB PO SCH (08:22)
[2016-06-23] MEDS: NEBIVOLOL 5 MG TAB PO SCH (08:22)
[2016-06-23] MEDS: CAPSAICIN 0.025% 60 GM CR TOP SCH ×4 (08:24→22:05)
[2016-06-23] MEDS: LISINOPRIL 20 MG TAB PO SCH (08:24)
[2016-06-23] MEDS: FLUTICASONE 0.05% 16 GM NAS SPRAY NASAL SCH ×2 (08:24→22:05)
[2016-06-23] MEDS: METHYLDOPA 500 MG TAB PO SCH ×2 (08:32→22:14)
[2016-06-23 09:19] LABS: ADD SCAN DIFF NO
[2016-06-23 09:23] LABS: BASOPHILS % 0.3 % (0.0-2.0); EOSINOPHILS # 0.1 10^3/ul (0.0-0.5); EOSINOPHILS % 1.4 % (0.0-7.0); HEMATOCRIT 32.9 % (37.0-47.0); HEMOGLOBIN 9.9 g/dl (12.0-16.0); LYMPHOCYTES # 1.3 10^3/ul (0.8-2.9); LYMPHOCYTES % 22.5 % (15.0-51.0); MEAN CORPUSCULAR HEMOGLOBIN 31.1 pg (29.0-33.0); MEAN CORPUSCULAR HGB CONC 30.1 g/dl (32.0-37.0); MEAN CORPUSCULAR VOLUME 103.5 fl (82.0-101.0); MEAN PLATELET VOLUME 10.8 fl (7.4-10.4); MONOCYTE # 0.6 10^3/ul (0.3-0.9); MONOCYTES % 9.8 % (0.0-11.0); NEUTROPHIL # 3.8 10^3/ul (1.6-7.5); NEUTROPHILS % 65.3 % (39.0-77.0); PLATELET COUNT 273 10^3/UL (140-415); RED BLOOD COUNT 3.18 10^6/ul (4.20-5.40); WHITE BLOOD COUNT 5.8 10^3/ul (4.8-10.8)
[2016-06-23 09:40] LABS: POTASSIUM 5.2 mmol/L (3.5-5.1)
[2016-06-23 09:42] LABS: CREATININE 2.12 mg/dl (0.44-1.00)
[2016-06-23 09:43] LABS: CALCIUM 8.7 mg/dl (8.4-10.2)
[2016-06-23] MEDS: ALBUTEROL/IPRATROPIUM (NEB) 3 ML AMP HHN PRN (10:29)
--- NOTE | 2016-06-23 11:04 | PN ---
DATE: 06/23/2016 SUBJECTIVE: The patient is lethargic this morning, did not sleep well last night, but arousable. N o other events noted. No hemoptysis, hematemesis or hematochezia. OBJECTIVE: VITAL SIGNS: Blood pressure 138/61, respirations 18, pulse 64, temperature 98.0. I's and O's not adequately recorded. HEENT: Head is normocephalic. NECK: Supple. HEART: Regular rate. LUNGS: Show diminished breath sounds at the bases. Positive rhonchi. ABDOMEN: Soft, nontender to palpation. No rebound or guarding. EXTREMITIES: Negative for clubbing, cyanosis. Positive edema. Positive venous insufficiency lord es. No change DERMATOLOGIC: No rashes. MUSCULOSKELETAL: No joint effusions. NEUROLOGIC: No change in exam. LABORATORY DATA: From 06/22/2016 was reviewed. Laboratory data from 06/23/2016 is pending. ASSESSMENT AND PLAN: 1. Nonoliguric acute kidney injury on top of chronic kidney disease with baseline creatinine around 2 mg/dL. Etiology of acute kidney injury was secondary to hemodynamics and PATIENCE inhibitor. The pat ient's renal function has returned to baseline. The patient's PATIENCE inhibitor dose was deescalated. At this point, continue current treatment plan. Continue Lasix. We will follow up renal panel. We will monitor electrolytes closely. 2. Acute decompensated diastolic heart failure. The patient's chest x-ray shows worsening edema. Lower extremity edema. The patient is currently on Lasix 40 mg IV b.i.d. We will continue current t reatment plan. We will expect to deescalate diuretic therapy in the next 1 [address] [facility] cardiology for further recommendations. 3. Acute hypoxemic respiratory failure secondary to diastolic heart failure, COPD, sleep apnea. Co ntinue current medical management. Continue supplemental oxygen. Continue diuretic therapy, nebuli zers. Appreciate pulmonary's evaluation. 4. 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 The patient is pending laparoscopic surgery . Continue to monitor. 5. Hypertension. Continue current blood pressure regimen. 6. Anemia. Continue to monitor hemoglobin and hematocrit levels. 7. Diabetes. Continue current Accu-Cheks, insulin sliding scale. 8. History of coronary artery disease. Continue medical management. 9. Chronic kidney disease, stage IV secondary to diabetes and hypertension. The patient's renal fu nction has returned back to baseline. Continue current treatment plan. 10. Morbid obesity. Continue dietary modification. 11. Sleep apnea. Continue supplemental oxygen. 12. Peripheral vascular disease. Continue current treatment plan. 13. Dyslipidemia. Continue statin therapy. 14. Neuropathy. Continue Lyrica. 15. Gastrointestinal and deep venous thrombosis prophylaxis. Continue Lovenox and proton pump inhi bitor. Dictated By: CRISTA GAINES/BIRGIT Conf#: [id number] DID#: [id number]
--- NOTE | 2016-06-23 12:16 | CONS ---
Date/Time of Note Date/Time of Note DATE: 06/23/16 TIME: 12:13 Assessment/Plan Assessment/Plan Additional Assessment/Plan Assessment and recommendations; next 1. Patient admitted for urinary obstruction discovered to have ovarian mass on CT imaging of the abdomen. 2. History of severe COPD. Without any evidence of CO2 retention. 3. CHF clinically improved now. 4. Chronic lower extremity edema with interval improvement as well. 5. Renal insufficiency with stable serum creatinine. 6. Stable hypertension. Next 7. Diabetes with mild hyperglycemia. 8. History of coronary artery disease status post CABG surgery in the past. Continue current treatment. She is extremely hesitant to undergo surgery for ovarian mass. Consultation Date/Type/Reason Admit Date/Time Jun 09, 2016 at 12:22 Initial Consult Date 06/10/16 Type of Consultation: Pulmonary Referring Provider: SHARLA SOUSA MD 24 HR Interval Summary Free Text/Dictation Patient condition is improved. She is reporting decreased shortness of breath. Denies any cough, wheezing, chest pain. Any sputum production. General examination; elderly woman currently in no distress awake and alert. Exam/Review of Systems Vital Signs Vitals Vital Signs Date Time Temp Pulse Resp B/P Pulse Ox O2 Delivery O2 Flow Rate FiO2 06/23/16 12:05 72 06/23/16 11:22 97.7 18 142/66 92 06/23/16 10:29 21 06/23/16 08:00 Nasal Cannula 3.0 Intake and Output 06/22/16 06/22/16 06/23/16 15:00 23:00 07:00 Intake Total 100 ml Output Total 400 ml Balance 100 ml -400 ml Exam HEENT examination; supple neck, JVD difficult to see because of short neck. No thyromegaly. Pharynx is clear. Pupils are midsize. No neck masses. No thyromegaly. Chest examination; diminished but clear breath sounds. S1-S2 audible, no murmurs. Regular rhythm. Abdomen examination; protuberant, nontender. Bowel sounds audible. Extremity examination; there is a slight reduction in lower extremity chronic appearing 2+ pitting edema. EX[employer] CHEF examination; no focal deficit. Results Result Diagram: 06/23/16 0855 06/23/16 0855 Results 24 hrs Laboratory Tests Test 06/22/16 13:50 06/22/16 14:10 06/22/16 16:44 06/22/16 18:05 Troponin I 0.015 0.016 Bedside Glucose 195 133 Test 06/22/16 18:38 06/22/16 20:03 06/23/16 00:40 06/23/16 07:34 Bedside Glucose 169 238 H 142 141 Test 06/23/16 08:55 06/23/16 11:40 Anion Gap 17 H Basophils # 0.0 Basophils % 0.3 Blood Urea Nitrogen 37 H Calcium Level 8.7 Carbon Dioxide Level 25 Chloride Level 107 Creatinine 2.12 H Eosinophils # 0.1 Eosinophils % 1.4 Glucose Level 155 Hematocrit 32.9 L Hemoglobin 9.9 L Lymphocytes # 1.3 Lymphocytes % 22.5 Mean Corpuscular Hemoglobin 31.1 Mean Corpuscular Hemoglobin Concent 30.1 L Mean Corpuscular Volume 103.5 H Mean Platelet Volume 10.8 H Monocytes # 0.6 Monocytes % 9.8 Neutrophils # 3.8 Neutrophils % 65.3 Nucleated Red Blood Cells # 0.0 Nucleated Red Blood Cells % 0.0 Platelet Count 273 Potassium Level 5.2 H Red Blood Count 3.18 L Red Cell Distribution Width 16.0 H Sodium Level 144 White Blood Count 5.8 Bedside Glucose 228 H Medications Medications Current Medications Gabapentin (Neurontin) 600 mg TID PO Last administered on 06/23/16 08:20; Admin Dose 600 MG; Start 06/09/16 at 21:00 Miscellaneous Medication (Bystolic) 20 mg DAILY PO Last administered on 08:22; Admin Dose 20 MG; Start 06/10/16 at 09:00 Pregabalin (Lyrica) 150 mg QHS PO Last administered on 06/22/16 22:28; Admin Dose 150 MG; Start 06/09/16 at 21:00 Valacyclovir HCl (Valtrex) 1,000 mg BID PO Last administered on 06/23/16 08:20 ; Admin Dose 1,000 MG; Start 06/09/16 at 21:00 Miscellaneous Information 1 ea NOTE XX ; Start 06/09/16 at 18:30 Glucose (Glutose) 15 gm Q15M PRN PO DECREASED GLUCOSE; Start 06/09/16 at 18:30 Glucose (Glutose) 22.5 gm Q15M PRN PO DECREASED GLUCOSE; Start 06/09/16 at 18: 30 Dextrose (D50w Syringe) 25 ml Q15M PRN IV DECREASED GLUCOSE; Start 06/09/16 at 18:30 Dextrose (D50w Syringe) 50 ml Q15M PRN IV DECREASED GLUCOSE; Start 06/09/16 at 18:30 Glucagon (Glucagen) 1 mg Q15M PRN IM DECREASED GLUCOSE; Start 06/09/16 at 18:30 Glucose (Glutose) 15 gm Q15M PRN BUCCAL DECREASED GLUCOSE; Start 06/09/16 at 18 :30 Amlodipine Besylate (Norvasc) 10 mg DAILY PO Last administered on 06/23/16 08: 22; Admin Dose 10 MG; Start 06/09/16 at 20:30 Hydromorphone HCl (Dilaudid) 0.5 mg Q4H PRN IV PAIN Last administered on 01:03; Admin Dose 0.5 MG; Start 06/10/16 at 02:30 Methyldopa (Aldomet) 500 mg BID PO Last administered on 06/23/16 08:32; Admin Dose 500 MG; Start 06/10/16 at 02:30 Pantoprazole (Protonix Tab) 40 mg DAILY@06 PO Last administered on 06/23/16 06 :59; Admin Dose 40 MG; Start 06/11/16 at 06:00 Clonidine (Catapres) 0.2 mg Q6H PRN PO SBP above 160 Last administered on 10:22; Admin Dose 0.2 MG; Start 06/10/16 at 12:17 Hydralazine HCl (Apresoline) 10 mg Q4H PRN IV SBP >170 Last administered on 23:24; Admin Dose 10 MG; Start 06/10/16 at 15:00 Lorazepam (Ativan) 0.5 mg HS PO Last administered on 06/22/16 21:15; Admin Dose 0.5 MG; Start 06/11/16 at 22:00 Bethanechol Chloride (Urecholine) 25 mg TID PO Last administered on 06/23/16 08:20; Admin Dose 25 MG; Start 06/13/16 at 13:00 Linagliptin (Tradjenta) 5 mg DAILY PO Last administered on 06/23/16 08:20; Admin Dose 5 MG; Start 06/16/16 at 09:00 Capsaicin (Theragen) 1 applic QID TOP Last administered on 06/23/16 08:24; Admin Dose 1 APPLIC; Start 06/15/16 at 21:00 Lidocaine (Lidocaine 5% Oint) 1 applic TID PRN TOP ITCHING/PAIN; Start at 15:30 Docusate Sodium (Colace) 100 mg BID PO Last administered on 06/23/16 08:20; Admin Dose 100 MG; Start 06/16/16 at 15:00 Bisacodyl (Dulcolax) 10 mg DAILY PRN PO CONSTIPATION Last administered on 20:44; Admin Dose 10 MG; Start 06/16/16 at 14:00 Guaifenesin/ Dextromethorphan (Robitussin Dm Liquid Cup) 10 ml Q4H PRN PO COUGH ; Start 06/17/16 at 17:30 Fluticasone Propionate (Flonase 0.05% Nasal) 1 spray BID NASAL Last administered on 06/23/16 08:24; Admin Dose 1 SPRAY; Start 06/19/16 at 09:00 Insulin Human NPH (Humulin N) 10 unit HS SC Last administered on 06/20/16 21: 04; Admin Dose 10 UNIT; Start 06/19/16 at 21:00; Status Future Hold Hydralazine HCl (Apresoline) 25 mg Q8 PO Last administered on 06/23/16 07:00; Admin Dose 25 MG; Start 06/20/16 at 14:00 Insulin Glargine (Lantus) 46 unit DAILY@20 SC ; Start 06/21/16 at 20:00 Lisinopril (Zestril) 20 mg DAILY PO Last administered on 06/23/16 08:24; Admin Dose 20 MG; Start 06/22/16 at 09:00 Atorvastatin Calcium (Lipitor) 40 mg HS PO Last administered on 06/22/16 21:15 ; Admin Dose 40 MG; Start 06/22/16 at 21:00 Nitroglycerin (Nitroglycerin 0.4 Mg/Hr) 1 patch DAILY TRANSDERM Last administered on 06/23/16 08:21; Admin Dose 1 PATCH; Start 06/22/16 at 11:30 Morphine Sulfate (morphine) 2 mg Q4H PRN IV pain Last administered on t 00:31; Admin Dose 2 MG; Start 06/22/16 at 10:30 JAYME POP Jun 23, 2016 12:16
--- NOTE | 2016-06-23 15:49 | RADRPT ---
Vent Rate: 72 bpm RR Interval: 0 msec [place] Interval: 148 msec QRS Duration: 82 msec QT Interval: 402 msec QTC Interval: 440 msec P-R-T [place]: 30 - 56 - 75 degrees Normal sinus rhythm Normal ECG Electronically Signed By: Ras Mooney [id number]
--- NOTE | 2016-06-23 18:00 | RADRPT ---
Vent Rate: 68 bpm RR Interval: 0 msec ME Interval: 158 msec QRS Duration: 82 msec QT Interval: 434 msec QTC Interval: 461 msec P-R-T [place]: 66 - 108 - 57 degrees Normal sinus rhythm Rightward axis Borderline ECG Electronically Signed By: Abisai Chi [id number]
--- NOTE | 2016-06-23 18:23 | CONS ---
Date/Time of Note Date/Time of Note DATE: 06/23/16 TIME: 18:22 Assessment/Plan Assessment/Plan Chief Complaint/Hosp Course 1. A right ovarian cystic mass. Etiology is unclear, concerning for possible malignancy. ca 125-n AMENDMENT to CT AP 06/12/2016 2:01:08 PM Ethan Villanueva MD Comparison is made with prior CT scan of the abdomen and pelvis dated 11/23/2009. The large right adnexal mass measures 6.7 x 8.8 x 7.4 cm on the current study and measured 3.7 x 4.6 x 4.8 cm on 11/23/2009. MRI PELVIS- Large complex cystic right ovarian mass which in a postmenopausal female is worrisome for an ovarian cystic neoplasm. Multiple uterine masses consistent with a leiomyomatous uterus. SEEN BY GYNEONC-will observe urologic response to medication and surgery definitely an option but requires clearance. Would approach laparoscopic and can do LSH/BSO with minilap and stage if needed. D/W PT AND FAMILY- CARDIAC AND PULM CLEARANCE- OBTAINED D/W DR LOWRY SURGERY ON HOLD 2 TO SOB AND INCREASED EDEMA PT IS IV LASIX AROUND THE CLOCK 2. Anemia. Continue to monitor hemoglobin and hematocrit levels. + component ACD OBSERVE FOR BLEEDING AND HEMOLYSIS SERVIN / NUMBNESS LUE- RESOLVED CT HEAD- NEG 3. Nonoliguric acute kidney injury on top of chronic kidney disease with a previous baseline renal function around 1.5 to 2 mg/dL. Etiology of acute kidney injury is possibly secondary to urinary retention, obstructive uropathy versus hemodynamics, possible cardiorenal syndrome. The patient's urinalysis shows findings of proteinuria but no pyuria, no hematuria, and a CT scan of the abdomen and pelvis showed no evidence of hydronephrosis. Plan at this point is to check a renal ultrasound. Will repeat UA with microanalysis. Will check urine electrolytes. Will continue supportive care, renally dose medications, avoid nephrotoxins, monitor renal function closely. Clinical albuminuria - PER NEPHROLOGY 4 Urinary retention. Underlying etiology is unclear. The patient is status post Flynn catheter placement with good urinary output. Seen by urology still unable to urinate on intermittent catheterizations URECHOLINE - DOSE INCREASED 5. Acute decompensated diastolic heart failure. The patient noted to have pulmonary congestion, lower extremity edema. The patient is status post Lasix; will continue- PER NEPHRO cardiology F-UP CHECK CXR IN AM 6. History of coronary artery disease, status post coronary artery bypass graft. Continue current medical management. 7. Diabetes. Will continue Accu-Cheks, insulin sliding scale, continue Lantus. HB A1C- 8.1 8. Chronic kidney disease stage IIIB/IV. Etiology is multifactorial secondary to diabetes, hypertension. The patient is currently in acute kidney injury as stated above. Continue medical management. 9. Morbid obesity. Continue dietary modification. 10. Dyslipidemia. Continue statin therapy. 11. Obstructive sleep apnea. Continue supplemental oxygen. Consider a pulmonary consult for evaluation. 12. Hypertension- POORLY CONTROLLED Continue current blood pressure regimen. Will adjust medications as needed. CARDIOLOGY F-UP 13. History of peripheral vascular disease. Continue current medical management. 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 SEVERE DJD/OA WITH CHRONIC PAIN 16. GI PROBLEMS- WITH ABD PAIN, DIARRHEA/ ALTERNATING WITH CONSTIPATION GI EVAL AND F-UP Problems: Consultation Date/Type/Reason Admit Date/Time Jun 09, 2016 at 12:22 Initial Consult Date 06/09/16 [facility] Referring Provider: SHARLA SOUSA MD 24 HR Interval Summary Free Text/Dictation TRANSFERRED TO [facility] Exam/Review of Systems Vital Signs Vitals Vital Signs Date Time Temp Pulse Resp B/P Pulse Ox O2 Delivery O2 Flow Rate FiO2 06/23/16 16:10 72 06/23/16 15:27 98.5 18 129/62 91 06/23/16 14:52 Nasal Cannula 3.0 06/23/16 10:29 21 Intake and Output 06/22/16 06/22/16 06/23/16 15:00 23:00 07:00 Intake Total 100 ml Output Total 400 ml Balance 100 ml -400 ml Exam HEENT examination; supple neck, JVD difficult to see because of short neck. No thyromegaly. Pharynx is clear. Pupils are midsize. No neck masses. No thyromegaly. Chest examination; diminished but clear breath sounds. S1-S2 audible, no murmurs. Regular rhythm. Abdomen examination; protuberant, nontender. Bowel sounds audible. Extremity examination; there is a slight reduction in lower extremity chronic appearing 2+ pitting edema. [employer] examination; no focal deficit. Results Result Diagram: 06/23/1685406/23/16 0855 Results 24 hrs Laboratory Tests Test 06/22/16 18:38 06/22/16 20:03 06/23/16 00:40 06/23/16 07:34 Bedside Glucose 169 238 H 142 141 Test 06/23/16 08:55 06/23/16 11:40 06/23/16 16:37 Anion Gap 17 H Basophils # 0.0 Basophils % 0.3 Blood Urea Nitrogen 37 H Calcium Level 8.7 Carbon Dioxide Level 25 Chloride Level 107 Creatinine 2.12 H Eosinophils # 0.1 Eosinophils % 1.4 Glucose Level 155 Hematocrit 32.9 L Hemoglobin 9.9 L Lymphocytes # 1.3 Lymphocytes % 22.5 Mean Corpuscular Hemoglobin 31.1 Mean Corpuscular Hemoglobin Concent 30.1 L Mean Corpuscular Volume 103.5 H Mean Platelet Volume 10.8 H Monocytes # 0.6 Monocytes % 9.8 Neutrophils # 3.8 Neutrophils % 65.3 Nucleated Red Blood Cells # 0.0 Nucleated Red Blood Cells % 0.0 Platelet Count 273 Potassium Level 5.2 H Red Blood Count 3.18 L Red Cell Distribution Width 16.0 H Sodium Level 144 White Blood Count 5.8 Bedside Glucose 228 H 134 Medications Medications Current Medications Gabapentin (Neurontin) 600 mg TID PO Last administered on 06/23/16 13:43; Admin Dose 600 MG; Start 06/09/16 at 21:00 Miscellaneous Medication (Bystolic) 20 mg DAILY PO Last administered on 08:22; Admin Dose 20 MG; Start 06/10/16 at 09:00 Pregabalin (Lyrica) 150 mg QHS PO Last administered on 06/22/16 22:28; Admin Dose 150 MG; Start 06/09/16 at 21:00 Valacyclovir HCl (Valtrex) 1,000 mg BID PO Last administered on 06/23/16 08:20 ; Admin Dose 1,000 MG; Start 06/09/16 at 21:00 Miscellaneous Information 1 ea NOTE XX ; Start 06/09/16 at 18:30 Glucose (Glutose) 15 gm Q15M PRN PO DECREASED GLUCOSE; Start 06/09/16 at 18:30 Glucose (Glutose) 22.5 gm Q15M PRN PO DECREASED GLUCOSE; Start 06/09/16 at 18: 30 Dextrose (D50w Syringe) 25 ml Q15M PRN IV DECREASED GLUCOSE; Start 06/09/16 at 18:30 Dextrose (D50w Syringe) 50 ml Q15M PRN IV DECREASED GLUCOSE; Start 06/09/16 at 18:30 Glucagon (Glucagen) 1 mg Q15M PRN IM DECREASED GLUCOSE; Start 06/09/16 at 18:30 Glucose (Glutose) 15 gm Q15M PRN BUCCAL DECREASED GLUCOSE; Start 06/09/16 at 18 :30 Amlodipine Besylate (Norvasc) 10 mg DAILY PO Last administered on 06/23/16 08: 22; Admin Dose 10 MG; Start 06/09/16 at 20:30 Hydromorphone HCl (Dilaudid) 0.5 mg Q4H PRN IV PAIN Last administered on 01:03; Admin Dose 0.5 MG; Start 06/10/16 at 02:30 Methyldopa (Aldomet) 500 mg BID PO Last administered on 06/23/16 08:32; Admin Dose 500 MG; Start 06/10/16 at 02:30 Pantoprazole (Protonix Tab) 40 mg DAILY@06 PO Last administered on 06/23/16 06 :59; Admin Dose 40 MG; Start 06/11/16 at 06:00 Clonidine (Catapres) 0.2 mg Q6H PRN PO SBP above 160 Last administered on 10:22; Admin Dose 0.2 MG; Start 06/10/16 at 12:17 Hydralazine HCl (Apresoline) 10 mg Q4H PRN IV SBP >170 Last administered on 23:24; Admin Dose 10 MG; Start 06/10/16 at 15:00 Lorazepam (Ativan) 0.5 mg HS PO Last administered on 06/22/16 21:15; Admin Dose 0.5 MG; Start 06/11/16 at 22:00 Bethanechol Chloride (Urecholine) 25 mg TID PO Last administered on 06/23/16 13:43; Admin Dose 25 MG; Start 06/13/16 at 13:00 Linagliptin (Tradjenta) 5 mg DAILY PO Last administered on 06/23/16 08:20; Admin Dose 5 MG; Start 06/16/16 at 09:00 Capsaicin (Theragen) 1 applic QID TOP Last administered on 06/23/16 17:39; Admin Dose 1 APPLIC; Start 06/15/16 at 21:00 Lidocaine (Lidocaine 5% Oint) 1 applic TID PRN TOP ITCHING/PAIN; Start at 15:30 Docusate Sodium (Colace) 100 mg BID PO Last administered on 06/23/16 08:20; Admin Dose 100 MG; Start 06/16/16 at 15:00 Bisacodyl (Dulcolax) 10 mg DAILY PRN PO CONSTIPATION Last administered on 20:44; Admin Dose 10 MG; Start 06/16/16 at 14:00 Guaifenesin/ Dextromethorphan (Robitussin Dm Liquid Cup) 10 ml Q4H PRN PO COUGH ; Start 06/17/16 at 17:30 Fluticasone Propionate (Flonase 0.05% Nasal) 1 spray BID NASAL Last administered on 06/23/16 08:24; Admin Dose 1 SPRAY; Start 06/19/16 at 09:00 Insulin Human NPH (Humulin N) 10 unit HS SC Last administered on 06/20/16 21: 04; Admin Dose 10 UNIT; Start 06/19/16 at 21:00; Status Future Hold Hydralazine HCl (Apresoline) 25 mg Q8 PO Last administered on 06/23/16 13:43; Admin Dose 25 MG; Start 06/20/16 at 14:00 Insulin Glargine (Lantus) 46 unit DAILY@20 SC ; Start 06/21/16 at 20:00 Lisinopril (Zestril) 20 mg DAILY PO Last administered on 06/23/16 08:24; Admin Dose 20 MG; Start 06/22/16 at 09:00 Atorvastatin Calcium (Lipitor) 40 mg HS PO Last administered on 06/22/16 21:15 ; Admin Dose 40 MG; Start 06/22/16 at 21:00 Nitroglycerin (Nitroglycerin 0.4 Mg/Hr) 1 patch DAILY TRANSDERM Last administered on 06/23/16 08:21; Admin Dose 1 PATCH; Start 06/22/16 at 11:30 Morphine Sulfate (morphine) 2 mg Q4H PRN IV pain Last administered on 2/28/ 17at 00:31; Admin Dose 2 MG; Start 06/22/16 at 10:30 SHARLA SOUSA MD Jun 23, 2016 18:22
[2016-06-23] MEDS: INSULIN GLARGINE [LANtus] 3 ML PEN SC SCH (20:00)
[2016-06-23] MEDS: PREGABALIN 75 MG CAP PO SCH (22:09)
[2016-06-23] MEDS: LORAZEPAM 0.5 MG TAB PO SCH (22:10)
[2016-06-23] MEDS: ATORVASTATIN 40 MG TAB PO SCH (22:10)
[2016-06-24] VITALS (12 sets, daily range): BP systolic 127–161; BP diastolic 58–70; PULSE 62–76; RESP 16–22
[2016-06-24] MEDS: morphine 2 MG INJ IV PRN (00:43)
[2016-06-24] MEDS: PANTOPRAZOLE (EC) 40 MG TAB PO SCH (06:00)
[2016-06-24] MEDS: FUROSEMIDE 40 MG INJ IV SCH ×2 (06:15→17:39)
[2016-06-24 07:32] LABS: ADD SCAN DIFF NO
[2016-06-24 07:39] LABS: BASOPHILS % 0.3 % (0.0-2.0); EOSINOPHILS # 0.1 10^3/ul (0.0-0.5); EOSINOPHILS % 1.3 % (0.0-7.0); HEMATOCRIT 32.1 % (37.0-47.0); LYMPHOCYTES # 1.6 10^3/ul (0.8-2.9); LYMPHOCYTES % 26.4 % (15.0-51.0); MEAN CORPUSCULAR HEMOGLOBIN 32.1 pg (29.0-33.0); MEAN CORPUSCULAR HGB CONC 31.2 g/dl (32.0-37.0); MEAN CORPUSCULAR VOLUME 102.9 fl (82.0-101.0); MEAN PLATELET VOLUME 10.6 fl (7.4-10.4); MONOCYTE # 0.7 10^3/ul (0.3-0.9); MONOCYTES % 11.2 % (0.0-11.0); NEUTROPHIL # 3.6 10^3/ul (1.6-7.5); NEUTROPHILS % 60.3 % (39.0-77.0); PLATELET COUNT 281 10^3/UL (140-415); RED BLOOD COUNT 3.12 10^6/ul (4.20-5.40); RED CELL DISTRIBUTION WIDTH 15.5 % (11.5-14.5)
[2016-06-24 07:48] LABS: POTASSIUM 4.4 mmol/L (3.5-5.1)
[2016-06-24 07:51] LABS: CREATININE 2.26 mg/dl (0.44-1.00)
[2016-06-24 07:52] LABS: CALCIUM 8.5 mg/dl (8.4-10.2); MAGNESIUM 2.1 mg/dl (1.7-2.5); PHOSPHORUS 5.7 mg/dl (2.5-4.9)
[2016-06-24] MEDS: INSULIN ASPART [NOVOLOG] 3 ML PEN SC SCH ×8 (07:55→20:58)
[2016-06-24] MEDS: ALBUTEROL/IPRATROPIUM (NEB) 3 ML AMP HHN SCH ×3 (08:54→19:26)
[2016-06-24] MEDS: BETHANECHOL 25 MG TAB PO SCH ×3 (09:33→20:16)
[2016-06-24] MEDS: AMLODIPINE 10 MG TAB PO SCH (09:34)
[2016-06-24] MEDS: VALACYCLOVIR 500 MG TAB PO SCH ×2 (09:34→21:15)
[2016-06-24] MEDS: DOCUSATE SODIUM 100 MG CAP PO SCH ×2 (09:34→20:16)
[2016-06-24] MEDS: NEBIVOLOL 5 MG TAB PO SCH (09:34)
[2016-06-24] MEDS: LINAGLIPTIN 5 MG TABLET PO SCH (09:34)
[2016-06-24] MEDS: NITROGLYCERIN 0.4 MG/HR PATCH TRANSDERM SCH (09:35)
[2016-06-24] MEDS: METHYLDOPA 500 MG TAB PO SCH ×2 (09:35→20:17)
[2016-06-24] MEDS: GABAPENTIN 300 MG CAP PO SCH ×3 (09:35→20:16)
--- NOTE | 2016-06-24 09:50 | RADRPT ---
PROCEDURE: XR Chest AP portable CLINICAL INDICATION: CHF TECHNIQUE: An AP portable radiograph of the chest was submitted. COMPARISON: 06/22/2016 FINDINGS: Support Hardware: None Cardiovascular: There is again evidence of a previous midline sternotomy. The heart remains moderat sherman enlarged and the pulmonary vasculature appears congested. Lung Chapa: Interstitial infiltrates again extend from the brother regions becoming more alveolar a nd worsened at the lung bases. Pleural Spaces: No pneumothorax or pleural effusion is identified. Osseous Structures: The osseous structures appear intact. Soft Tissues: The soft tissues appear generous. IMPRESSION: 1. Previous midline sternotomy. 2. Cardiomegaly with pulmonary venous obstruction. 3. Worsening symmetrical infiltrates suspicious for pulmonary edema. Physician Armida Date Time Electronically viewed and signed by Kodi Lawson Physician on 06/24/2016 09:49 /
--- NOTE | 2016-06-24 09:58 | PN ---
DATE: 06/24/2016 SUBJECTIVE: The patient is lethargic, but arousable, no acute events noted overnight, no hemoptysis , hematemesis, or hematochezia. OBJECTIVE: VITAL SIGNS: Blood pressure 140/62, respirations 20, pulse 76, temperature 98.2. I'S AND O'S: The patient 1 liter in, 800 out. HEENT: Head is normocephalic. NECK: Supple. HEART: Regular rate. LUNGS: Show diminished breath sounds at the base. ABDOMEN: Soft, obese, nontender to palpation. EXTREMITIES: Negative for clubbing, cyanosis. Trace edema, improved. NEUROLOGIC: No change in exam. MUSCULOSKELETAL: No joint effusions. DERMATOLOGIC: No rashes. LABORATORY DATA: Shows sodium 144, potassium 5.2, chloride 107, BUN 37, creatinine 2.12, glucose 22 8. White count is 6.0, hemoglobin 10.0, hematocrit 32.1, platelet count is 281. ASSESSMENT AND PLAN: 1. Nonoliguric acute kidney injury on top of chronic kidney disease with a baseline creatinine arou nd 2 mg/dL. Etiology of acute kidney injury is secondary to hemodynamics, PATIENCE inhibitor effect. Re nal function has returned to baseline. Continue to monitor closely on diuretic therapy. 2. Acute decompensated heart failure. The patient is clinically improving. Will deescalate Lasix from 40 mg IV b.i.d. to p.o. b.i.d. Continue current treatment plan. Will follow up with cardiolog y for recommendations. 3. Acute hypoxemic respiratory failure secondary to systolic heart failure, chronic obstructive pul monary disease. The patient is clinically improving. Continue medical management. Continue diuret ic therapy. Continue supplemental oxygen. 4. Right ovarian cystic mass, concern for possible neoplasm. The patient is pending possible lapar oscopic surgery. Continue to monitor. 5. Hypertension. Continue current blood pressure regimen. 6. Anemia. Continue to monitor hemoglobin and hematocrit levels. 7. Diabetes. Continue Accu-Cheks and insulin sliding scale. 8. History of coronary artery disease. Continue medical management. 9. Chronic kidney disease stage IV secondary to diabetes, hypertension. The patient's renal functi on is currently at baseline. Continue to monitor. 10. Morbid obesity. Continue dietary modification. 11. Sleep apnea. Continue supplemental oxygen. 12. Prophylaxis. Continue current treatment plan. 13. Dyslipidemia. Continue statin therapy. 14. Neuropathy. Continue Lyrica. 15. Gastrointestinal and deep venous thrombosis prophylaxis. Continue proton pump inhibitor and Lo venox. 16. Mild hyperkalemia. This may be secondary to PATIENCE inhibitor effect. Will hold PATIENCE inhibitor. M onitor closely. Dictated By: CRISTA HERNANDEZ DO NR/NTS Conf#: [id number] DID#: [id number]
[2016-06-24] MEDS: FLUTICASONE 0.05% 16 GM NAS SPRAY NASAL SCH ×2 (10:37→20:15)
[2016-06-24] MEDS: CAPSAICIN 0.025% 60 GM CR TOP SCH ×4 (10:38→20:27)
--- NOTE | 2016-06-24 11:49 | CONS ---
Date/Time of Note Date/Time of Note DATE: 06/24/16 TIME: 11:45 Assessment/Plan Assessment/Plan Additional Assessment/Plan Assessment and recommendations; 1. Patient admitted for urinary obstruction discovered to have an ovarian mass on CT imaging of the abdomen. 2. Patient currently hesitant to undergo abdominal surgery on account of her underlying multiple comorbidities. 3. History of severe COPD. O2 dependent. 4. Stable renal insufficiency. 5. Congestive heart failure. 6. History of hypertension. 7. History of coronary artery bypass surgery. 8. Diabetes. 9. Morbid obesity. Continue supportive care for now. From pulmonary standpoint the patient is cleared to undergo laparoscopic abdominal surgery. Family is well aware of the risk of the operation on account of patient's multiple other comorbidities. Consultation Date/Type/Reason Admit Date/Time Jun 09, 2016 at 12:22 Initial Consult Date 06/10/16 Type of Consultation: Pulmonary Referring Provider: SHARLA SOUSA MD 24 HR Interval Summary Free Text/Dictation Patient condition is stable. Currently sitting at the edge of the bed. Complains of shortness of breath on minimal exertion. Has any chest pain, coughing, wheezing. Denies any abdominal pain. General examination; elderly lady, currently in no distress awake and alert. Exam/Review of Systems Vital Signs Vitals Vital Signs Date Time Temp Pulse Resp B/P Pulse Ox O2 Delivery O2 Flow Rate FiO2 06/24/16 11:35 98.0 70 18 127/58 94 06/24/16 08:55 Nasal Cannula 3.0 32 Intake and Output 06/23/16 06/23/16 06/24/16 15:00 23:00 07:00 Intake Total 300 ml 850 ml 400 ml Output Total 800 ml 800 ml Balance 300 ml 50 ml -400 ml Exam H EENT examination; supple neck, JVD difficult to see because of short neck. Pharynx is clear. Nipples are midsize reactive to light. No thyromegaly. Chest examination; diminished but clear breath sounds. S1-S2 audible, no murmurs. Regular rhythm. Abdomen examination; protuberant, nontender. Bowel sounds audible. Extremity examination; chronic appearing 2+ pitting edema lower extremities bilaterally. 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 Results Result Diagram: 06/24/16 0625 06/24/16 0625 Results 24 hrs Laboratory Tests Test 06/23/16 16:37 2/28/17 22:07 06/24/16 06:25 06/24/16 07:57 Bedside Glucose 134 176 190 Anion Gap 19 H Basophils # 0.0 Basophils % 0.3 Blood Urea Nitrogen 41 H Calcium Level 8.5 Carbon Dioxide Level 24 Chloride Level 107 Creatinine 2.26 H Eosinophils # 0.1 Eosinophils % 1.3 Glucose Level 141 Hematocrit 32.1 L Hemoglobin 10.0 L Lymphocytes # 1.6 Lymphocytes % 26.4 Magnesium Level 2.1 Mean Corpuscular Hemoglobin 32.1 Mean Corpuscular Hemoglobin Concent 31.2 L Mean Corpuscular Volume 102.9 H Mean Platelet Volume 10.6 H Monocytes # 0.7 Monocytes % 11.2 H Neutrophils # 3.6 Neutrophils % 60.3 Nucleated Red Blood Cells # 0.0 Nucleated Red Blood Cells % 0.0 Phosphorus Level 5.7 H Platelet Count 281 Potassium Level 4.4 Red Blood Count 3.12 L Red Cell Distribution Width 15.5 H Sodium Level 146 H White Blood Count 6.0 Medications Medications Current Medications Gabapentin (Neurontin) 600 mg TID PO Last administered on 06/24/16 09:35; Admin Dose 600 MG; Start 06/09/16 at 21:00 Miscellaneous Medication (Bystolic) 20 mg DAILY PO Last administered on 09:34; Admin Dose 20 MG; Start 06/10/16 at 09:00 Pregabalin (Lyrica) 150 mg QHS PO Last administered on 06/23/16 22:09; Admin Dose 150 MG; Start 06/09/16 at 21:00 Valacyclovir HCl (Valtrex) 1,000 mg BID PO Last administered on 06/24/16 09:34 ; Admin Dose 1,000 MG; Start 06/09/16 at 21:00 Miscellaneous Information 1 ea NOTE XX ; Start 06/09/16 at 18:30 Glucose (Glutose) 15 gm Q15M PRN PO DECREASED GLUCOSE; Start 06/09/16 at 18:30 Glucose (Glutose) 22.5 gm Q15M PRN PO DECREASED GLUCOSE; Start 06/09/16 at 18: 30 Dextrose (D50w Syringe) 25 ml Q15M PRN IV DECREASED GLUCOSE; Start 06/09/16 at 18:30 Dextrose (D50w Syringe) 50 ml Q15M PRN IV DECREASED GLUCOSE; Start 06/09/16 at 18:30 Glucagon (Glucagen) 1 mg Q15M PRN IM DECREASED GLUCOSE; Start 06/09/16 at 18:30 Glucose (Glutose) 15 gm Q15M PRN BUCCAL DECREASED GLUCOSE; Start 06/09/16 at 18 :30 Amlodipine Besylate (Norvasc) 10 mg DAILY PO Last administered on 06/24/16 09: 34; Admin Dose 10 MG; Start 06/09/16 at 20:30 Hydromorphone HCl (Dilaudid) 0.5 mg Q4H PRN IV PAIN Last administered on 01:03; Admin Dose 0.5 MG; Start 06/10/16 at 02:30 Methyldopa (Aldomet) 500 mg BID PO Last administered on 06/24/16 09:35; Admin Dose 500 MG; Start 06/10/16 at 02:30 Pantoprazole (Protonix Tab) 40 mg DAILY@06 PO Last administered on 06/24/16 06: 00; Admin Dose 40 MG; Start 06/11/16 at 06:00 Clonidine (Catapres) 0.2 mg Q6H PRN PO SBP above 160 Last administered on 10:22; Admin Dose 0.2 MG; Start 06/10/16 at 12:17 Hydralazine HCl (Apresoline) 10 mg Q4H PRN IV SBP >170 Last administered on 23:24; Admin Dose 10 MG; Start 06/10/16 at 15:00 Lorazepam (Ativan) 0.5 mg HS PO Last administered on 06/23/16 22:10; Admin Dose 0.5 MG; Start 06/11/16 at 22:00 Bethanechol Chloride (Urecholine) 25 mg TID PO Last administered on 06/24/16 09 :33; Admin Dose 25 MG; Start 06/13/16 at 13:00 Linagliptin (Tradjenta) 5 mg DAILY PO Last administered on 06/24/16 09:34; Admin Dose 5 MG; Start 06/16/16 at 09:00 Capsaicin (Theragen) 1 applic QID TOP Last administered on 06/24/16 10:38; Admin Dose 1 APPLIC; Start 06/15/16 at 21:00 Lidocaine (Lidocaine 5% Oint) 1 applic TID PRN TOP ITCHING/PAIN; Start at 15:30 Docusate Sodium (Colace) 100 mg BID PO Last administered on 06/24/16 09:34; Admin Dose 100 MG; Start 06/16/16 at 15:00 Bisacodyl (Dulcolax) 10 mg DAILY PRN PO CONSTIPATION Last administered on 20:44; Admin Dose 10 MG; Start 06/16/16 at 14:00 Guaifenesin/ Dextromethorphan (Robitussin Dm Liquid Cup) 10 ml Q4H PRN PO COUGH ; Start 06/17/16 at 17:30 Fluticasone Propionate (Flonase 0.05% Nasal) 1 spray BID NASAL Last administered on 06/24/16 10:37; Admin Dose 1 SPRAY; Start 06/19/16 at 09:00 Insulin Human NPH (Humulin N) 10 unit HS SC Last administered on 06/20/16 21: 04; Admin Dose 10 UNIT; Start 06/19/16 at 21:00; Status Future Hold Hydralazine HCl (Apresoline) 25 mg Q8 PO Last administered on 06/23/16 23:42; Admin Dose 25 MG; Start 06/20/16 at 14:00 Insulin Glargine (Lantus) 46 unit DAILY@20 SC ; Start 06/21/16 at 20:00 Lisinopril (Zestril) 20 mg DAILY PO Last administered on 06/23/16 08:24; Admin Dose 20 MG; Start 06/22/16 at 09:00; Status Future Hold Atorvastatin Calcium (Lipitor) 40 mg HS PO Last administered on 06/23/16 22:10 ; Admin Dose 40 MG; Start 06/22/16 at 21:00 Nitroglycerin (Nitroglycerin 0.4 Mg/Hr) 1 patch DAILY TRANSDERM Last administered on 06/24/16 09:35; Admin Dose 1 PATCH; Start 06/22/16 at 11:30 Morphine Sulfate (morphine) 2 mg Q4H PRN IV pain Last administered on 06/24/16 00:43; Admin Dose 2 MG; Start 06/22/16 at 10:30 JAYME POP Jun 24, 2016 11:49
--- NOTE | 2016-06-24 16:03 | CONS ---
Date/Time of Note Date/Time of Note DATE: 06/24/16 TIME: 15:58 Assessment/Plan Assessment/Plan Chief Complaint/Hosp Course Acute on chronic diastolic heart failure: improving with diuresis Chest pain: ruled out for myocardial infarction Accelerated HTN: blood pressures improved Ovarian mass: Being evaluated by heme/onc. Surgery on hold Urinary retention: required martinez. now better Acute on chronic renal failure: improved after obstruction resolved. Stable h/o CAD s/p CABG DM PVD s/p renal stent -continue diuresis -continue amlodipine 10mg, hydralazine 25mg q8h -continue home nebivolol, methyldopa -ASA, statin Problems: Consultation Date/Type/Reason Admit Date/Time Jun 09, 2016 at 12:22 Initial Consult Date 06/10/16 Type of Consultation: Cardiology 24 HR Interval Summary Free Text/Dictation Shortness of breath improving. No further chest pain. Troponins negative. Detailed Summary Additional Comments 14 point review of systems without changes. Exam/Review of Systems Vital Signs Vitals Vital Signs Date Time Temp Pulse Resp B/P Pulse Ox O2 Delivery O2 Flow Rate FiO2 06/24/16 15:26 97.9 68 19 141/62 94 06/24/16 14:14 3.0 32 06/24/16 08:55 Nasal Cannula Intake and Output 06/23/16 06/23/16 06/24/16 15:00 23:00 07:00 Intake Total 300 ml 850 ml 400 ml Output Total 800 ml 800 ml Balance 300 ml 50 ml -400 ml Exam Constitutional: alert, distress (mild respiratory ), oriented Head: atraumatic, normocephalic Neck: jvd (9cm) Respiratory: diminished breath sounds Cardiovascular: edema (2+), regular rate and rhythm, systolic murmur (2/6) Gastrointestinal: non-tender, soft Neurological: nl mental status, nl speech Results Result Diagram: 06/24/16 0625 06/24/16 0625 Results 24 hrs Laboratory Tests Test 06/23/16 16:37 06/23/16 22:07 06/24/16 06:25 06/24/16 07:57 Bedside Glucose 134 176 190 Anion Gap 19 H Basophils # 0.0 Basophils % 0.3 Blood Urea Nitrogen 41 H Calcium Level 8.5 Carbon Dioxide Level 24 Chloride Level 107 Creatinine 2.26 H Eosinophils # 0.1 Eosinophils % 1.3 Glucose Level 141 Hematocrit 32.1 L Hemoglobin 10.0 L Lymphocytes # 1.6 Lymphocytes % 26.4 Magnesium Level 2.1 Mean Corpuscular Hemoglobin 32.1 Mean Corpuscular Hemoglobin Concent 31.2 L Mean Corpuscular Volume 102.9 H Mean Platelet Volume 10.6 H Monocytes # 0.7 Monocytes % 11.2 H Neutrophils # 3.6 Neutrophils % 60.3 Nucleated Red Blood Cells # 0.0 Nucleated Red Blood Cells % 0.0 Phosphorus Level 5.7 H Platelet Count 281 Potassium Level 4.4 Red Blood Count 3.12 L Red Cell Distribution Width 15.5 H Sodium Level 146 H White Blood Count 6.0 Medications Medications Current Medications Gabapentin (Neurontin) 600 mg TID PO Last administered on 06/24/16 12:05; Admin Dose 600 MG; Start 06/09/16 at 21:00 Miscellaneous Medication (Bystolic) 20 mg DAILY PO Last administered on 09:34; Admin Dose 20 MG; Start 06/10/16 at 09:00 Pregabalin (Lyrica) 150 mg QHS PO Last administered on 06/23/16 22:09; Admin Dose 150 MG; Start 06/09/16 at 21:00 Valacyclovir HCl (Valtrex) 1,000 mg BID PO Last administered on 06/24/16 09:34 ; Admin Dose 1,000 MG; Start 06/09/16 at 21:00 Miscellaneous Information 1 ea NOTE XX ; Start 06/09/16 at 18:30 Glucose (Glutose) 15 gm Q15M PRN PO DECREASED GLUCOSE; Start 06/09/16 at 18:30 Glucose (Glutose) 22.5 gm Q15M PRN PO DECREASED GLUCOSE; Start 06/09/16 at 18: 30 Dextrose (D50w Syringe) 25 ml Q15M PRN IV DECREASED GLUCOSE; Start 06/09/16 at 18:30 Dextrose (D50w Syringe) 50 ml Q15M PRN IV DECREASED GLUCOSE; Start 06/09/16 at 18:30 Glucagon (Glucagen) 1 mg Q15M PRN IM DECREASED GLUCOSE; Start 06/09/16 at 18:30 Glucose (Glutose) 15 gm Q15M PRN BUCCAL DECREASED GLUCOSE; Start 06/09/16 at 18 :30 Amlodipine Besylate (Norvasc) 10 mg DAILY PO Last administered on 06/24/16 09: 34; Admin Dose 10 MG; Start 06/09/16 at 20:30 Hydromorphone HCl (Dilaudid) 0.5 mg Q4H PRN IV PAIN Last administered on 01:03; Admin Dose 0.5 MG; Start 06/10/16 at 02:30 Methyldopa (Aldomet) 500 mg BID PO Last administered on 06/24/16 09:35; Admin Dose 500 MG; Start 06/10/16 at 02:30 Pantoprazole (Protonix Tab) 40 mg DAILY@06 PO Last administered on 06/24/16 06: 00; Admin Dose 40 MG; Start 06/11/16 at 06:00 Clonidine (Catapres) 0.2 mg Q6H PRN PO SBP above 160 Last administered on 10:22; Admin Dose 0.2 MG; Start 06/10/16 at 12:17 Hydralazine HCl (Apresoline) 10 mg Q4H PRN IV SBP >170 Last administered on 23:24; Admin Dose 10 MG; Start 06/10/16 at 15:00 Lorazepam (Ativan) 0.5 mg HS PO Last administered on 06/23/16 22:10; Admin Dose 0.5 MG; Start 06/11/16 at 22:00 Bethanechol Chloride (Urecholine) 25 mg TID PO Last administered on 06/24/16 12 :04; Admin Dose 25 MG; Start 06/13/16 at 13:00 Linagliptin (Tradjenta) 5 mg DAILY PO Last administered on 06/24/16 09:34; Admin Dose 5 MG; Start 06/16/16 at 09:00 Capsaicin (Theragen) 1 applic QID TOP Last administered on 06/24/16 10:38; Admin Dose 1 APPLIC; Start 06/15/16 at 21:00 Lidocaine (Lidocaine 5% Oint) 1 applic TID PRN TOP ITCHING/PAIN; Start at 15:30 Docusate Sodium (Colace) 100 mg BID PO Last administered on 06/24/16 09:34; Admin Dose 100 MG; Start 06/16/16 at 15:00 Bisacodyl (Dulcolax) 10 mg DAILY PRN PO CONSTIPATION Last administered on 20:44; Admin Dose 10 MG; Start 06/16/16 at 14:00 Guaifenesin/ Dextromethorphan (Robitussin Dm Liquid Cup) 10 ml Q4H PRN PO COUGH ; Start 06/17/16 at 17:30 Fluticasone Propionate (Flonase 0.05% Nasal) 1 spray BID NASAL Last administered on 06/24/16 10:37; Admin Dose 1 SPRAY; Start 06/19/16 at 09:00 Insulin Human NPH (Humulin N) 10 unit HS SC Last administered on 06/20/16 21: 04; Admin Dose 10 UNIT; Start 06/19/16 at 21:00; Status Future Hold Hydralazine HCl (Apresoline) 25 mg Q8 PO Last administered on 06/23/16 23:42; Admin Dose 25 MG; Start 06/20/16 at 14:00 Insulin Glargine (Lantus) 46 unit DAILY@20 SC ; Start 06/21/16 at 20:00 Lisinopril (Zestril) 20 mg DAILY PO Last administered on 06/23/16 08:24; Admin Dose 20 MG; Start 06/22/16 at 09:00; Status Future Hold Atorvastatin Calcium (Lipitor) 40 mg HS PO Last administered on 06/23/16 22:10 ; Admin Dose 40 MG; Start 06/22/16 at 21:00 Nitroglycerin (Nitroglycerin 0.4 Mg/Hr) 1 patch DAILY TRANSDERM Last administered on 06/24/16 09:35; Admin Dose 1 PATCH; Start 06/22/16 at 11:30 Morphine Sulfate (morphine) 2 mg Q4H PRN IV pain Last administered on 06/24/16 00:43; Admin Dose 2 MG; Start 06/22/16 at 10:30 LOLI MCCARTNEY MD Jun 24, 2016 16:03
[2016-06-24] MEDS: PREGABALIN 75 MG CAP PO SCH (20:16)
[2016-06-24] MEDS: ATORVASTATIN 40 MG TAB PO SCH (20:16)
[2016-06-24] MEDS: LORAZEPAM 0.5 MG TAB PO SCH (20:16)
--- NOTE | 2016-06-24 20:29 | CONS ---
Date/Time of Note Date/Time of Note DATE: 06/24/16 TIME: 20:25 Assessment/Plan Assessment/Plan Chief Complaint/Hosp Course 1. A right ovarian cystic mass. Etiology is unclear, concerning for possible malignancy. ca 125-n AMENDMENT to CT AP 06/12/2016 2:01:08 PM Ethan Villanueva MD Comparison is made with prior CT scan of the abdomen and pelvis dated 11/23/2009. The large right adnexal mass measures 6.7 x 8.8 x 7.4 cm on the current study and measured 3.7 x 4.6 x 4.8 cm on 11/23/2009. MRI PELVIS- Large complex cystic right ovarian mass which in a postmenopausal female is worrisome for an ovarian cystic neoplasm. Multiple uterine masses consistent with a leiomyomatous uterus. SEEN BY GYNEONC-will observe urologic response to medication and surgery definitely an option but requires clearance. Would approach laparoscopic and can do LSH/BSO with minilap and stage if needed. D/W PT AND FAMILY- CARDIAC AND PULM CLEARANCE- OBTAINED D/W DR LOWRY SURGERY ON HOLD 2 TO SOB AND INCREASED EDEMA PT IS IV LASIX AROUND THE CLOCK 2. Anemia. Continue to monitor hemoglobin and hematocrit levels. + component ACD OBSERVE FOR BLEEDING AND HEMOLYSIS SERVIN / NUMBNESS LUE- RESOLVED CT HEAD- NEG 3. Nonoliguric acute kidney injury on top of chronic kidney disease with a previous baseline renal function around 1.5 to 2 mg/dL. Etiology of acute kidney injury is possibly secondary to urinary retention, obstructive uropathy versus hemodynamics, possible cardiorenal syndrome. The patient's urinalysis shows findings of proteinuria but no pyuria, no hematuria, and a CT scan of the abdomen and pelvis showed no evidence of hydronephrosis. Plan at this point is to check a renal ultrasound. Will repeat UA with microanalysis. Will check urine electrolytes. Will continue supportive care, renally dose medications, avoid nephrotoxins, monitor renal function closely. Clinical albuminuria - PER NEPHROLOGY 4 Urinary retention. Underlying etiology is unclear. The patient is status post Flynn catheter placement with good urinary output. Seen by urology still unable to urinate on intermittent catheterizations URECHOLINE - DOSE INCREASED 5. Acute decompensated diastolic heart failure. The patient noted to have pulmonary congestion, lower extremity edema. The patient is status post Lasix; will continue- PER NEPHRO cardiology F-UP CHECK CXR IN AM 6. History of coronary artery disease, status post coronary artery bypass graft. Continue current medical management. 7. Diabetes. Will continue Accu-Cheks, insulin sliding scale, continue Lantus. HB A1C- 8.1 8. Chronic kidney disease stage IIIB/IV. Etiology is multifactorial secondary to diabetes, hypertension. The patient is currently in acute kidney injury as stated above. Continue medical management. 9. Morbid obesity. Continue dietary modification. 10. Dyslipidemia. Continue statin therapy. 11. Obstructive sleep apnea. Continue supplemental oxygen. Consider a pulmonary consult for evaluation. 12. Hypertension- POORLY CONTROLLED Continue current blood pressure regimen. Will adjust medications as needed. CARDIOLOGY F-UP 13. History of peripheral vascular disease. Continue current medical management. 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 SEVERE DJD/OA WITH CHRONIC PAIN 16. GI PROBLEMS- WITH ABD PAIN, DIARRHEA/ ALTERNATING WITH CONSTIPATION GI EVAL AND F-UP Problems: Consultation Date/Type/Reason Admit Date/Time Jun 09, 2016 at 12:22 Initial Consult Date 06/09/16 Type of Consultation: [facility] Referring Provider: CRISTA HERNANDEZ DO 24 HR Interval Summary Free Text/Dictation ALL NOTED + SOB Exam/Review of Systems Vital Signs Vitals Vital Signs Date Time Temp Pulse Resp B/P Pulse Ox O2 Delivery O2 Flow Rate FiO2 06/24/16 20:24 71 06/24/16 19:37 20 95 Nasal Cannula 3.0 06/24/16 15:26 97.9 141/62 06/24/16 14:14 32 Intake and Output 06/23/16 06/23/16 06/24/16 15:00 23:00 07:00 Intake Total 300 ml 850 ml 400 ml Output Total 800 ml 800 ml Balance 300 ml 50 ml -400 ml Exam HEENT examination; supple neck, JVD difficult to see because of short neck. No thyromegaly. Pharynx is clear. Pupils are midsize. No neck masses. No thyromegaly. Chest examination; diminished but clear breath sounds. S1-S2 audible, no murmurs. Regular rhythm. Abdomen examination; protuberant, nontender. Bowel sounds audible. Extremity examination; there is a slight reduction in lower extremity chronic appearing 2+ pitting edema. 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 Results Result Diagram: 06/24/1662406/24/16624 Results 24 hrs Laboratory Tests Test 06/23/16 22:07 06/24/16 06:25 06/24/16 07:57 06/24/16 17:30 Bedside Glucose 176 190 228 H Anion Gap 19 H Basophils # 0.0 Basophils % 0.3 Blood Urea Nitrogen 41 H Calcium Level 8.5 Carbon Dioxide Level 24 Chloride Level 107 Creatinine 2.26 H Eosinophils # 0.1 Eosinophils % 1.3 Glucose Level 141 Hematocrit 32.1 L Hemoglobin 10.0 L Lymphocytes # 1.6 Lymphocytes % 26.4 Magnesium Level 2.1 Mean Corpuscular Hemoglobin 32.1 Mean Corpuscular Hemoglobin Concent 31.2 L Mean Corpuscular Volume 102.9 H Mean Platelet Volume 10.6 H Monocytes # 0.7 Monocytes % 11.2 H Neutrophils # 3.6 Neutrophils % 60.3 Nucleated Red Blood Cells # 0.0 Nucleated Red Blood Cells % 0.0 Phosphorus Level 5.7 H Platelet Count 281 Potassium Level 4.4 Red Blood Count 3.12 L Red Cell Distribution Width 15.5 H Sodium Level 146 H White Blood Count 6.0 Test 06/24/16 20:07 Bedside Glucose 215 Medications Medications Current Medications Gabapentin (Neurontin) 600 mg TID PO Last administered on 06/24/16 20:16; Admin Dose 600 MG; Start 06/09/16 at 21:00 Miscellaneous Medication (Bystolic) 20 mg DAILY PO Last administered on 09:34; Admin Dose 20 MG; Start 06/10/16 at 09:00 Pregabalin (Lyrica) 150 mg QHS PO Last administered on 06/24/16 20:16; Admin Dose 150 MG; Start 06/09/16 at 21:00 Valacyclovir HCl (Valtrex) 1,000 mg BID PO Last administered on 06/24/16 09:34 ; Admin Dose 1,000 MG; Start 06/09/16 at 21:00 Miscellaneous Information 1 ea NOTE XX ; Start 06/09/16 at 18:30 Glucose (Glutose) 15 gm Q15M PRN PO DECREASED GLUCOSE; Start 06/09/16 at 18:30 Glucose (Glutose) 22.5 gm Q15M PRN PO DECREASED GLUCOSE; Start 06/09/16 at 18: 30 Dextrose (D50w Syringe) 25 ml Q15M PRN IV DECREASED GLUCOSE; Start 06/09/16 at 18:30 Dextrose (D50w Syringe) 50 ml Q15M PRN IV DECREASED GLUCOSE; Start 06/09/16 at 18:30 Glucagon (Glucagen) 1 mg Q15M PRN IM DECREASED GLUCOSE; Start 06/09/16 at 18:30 Glucose (Glutose) 15 gm Q15M PRN BUCCAL DECREASED GLUCOSE; Start 06/09/16 at 18 :30 Amlodipine Besylate (Norvasc) 10 mg DAILY PO Last administered on 06/24/16 09: 34; Admin Dose 10 MG; Start 06/09/16 at 20:30 Hydromorphone HCl (Dilaudid) 0.5 mg Q4H PRN IV PAIN Last administered on 01:03; Admin Dose 0.5 MG; Start 06/10/16 at 02:30 Methyldopa (Aldomet) 500 mg BID PO Last administered on 06/24/16 20:17; Admin Dose 500 MG; Start 06/10/16 at 02:30 Pantoprazole (Protonix Tab) 40 mg DAILY@06 PO Last administered on 06/24/16 06: 00; Admin Dose 40 MG; Start 06/11/16 at 06:00 Clonidine (Catapres) 0.2 mg Q6H PRN PO SBP above 160 Last administered on 10:22; Admin Dose 0.2 MG; Start 06/10/16 at 12:17 Hydralazine HCl (Apresoline) 10 mg Q4H PRN IV SBP >170 Last administered on 23:24; Admin Dose 10 MG; Start 06/10/16 at 15:00 Lorazepam (Ativan) 0.5 mg HS PO Last administered on 06/24/16 20:16; Admin Dose 0.5 MG; Start 06/11/16 at 22:00 Bethanechol Chloride (Urecholine) 25 mg TID PO Last administered on 06/24/16 20 :16; Admin Dose 25 MG; Start 06/13/16 at 13:00 Linagliptin (Tradjenta) 5 mg DAILY PO Last administered on 06/24/16 09:34; Admin Dose 5 MG; Start 06/16/16 at 09:00 Capsaicin (Theragen) 1 applic QID TOP Last administered on 06/24/16 17:39; Admin Dose 1 APPLIC; Start 06/15/16 at 21:00 Lidocaine (Lidocaine 5% Oint) 1 applic TID PRN TOP ITCHING/PAIN; Start at 15:30 Docusate Sodium (Colace) 100 mg BID PO Last administered on 06/24/16 20:16; Admin Dose 100 MG; Start 06/16/16 at 15:00 Bisacodyl (Dulcolax) 10 mg DAILY PRN PO CONSTIPATION Last administered on 20:44; Admin Dose 10 MG; Start 06/16/16 at 14:00 Guaifenesin/ Dextromethorphan (Robitussin Dm Liquid Cup) 10 ml Q4H PRN PO COUGH ; Start 06/17/16 at 17:30 Fluticasone Propionate (Flonase 0.05% Nasal) 1 spray BID NASAL Last administered on 06/24/16 20:15; Admin Dose 1 SPRAY; Start 06/19/16 at 09:00 Insulin Human NPH (Humulin N) 10 unit HS SC Last administered on 06/20/16 21: 04; Admin Dose 10 UNIT; Start 06/19/16 at 21:00; Status Future Hold Hydralazine HCl (Apresoline) 25 mg Q8 PO Last administered on 06/23/16 23:42; Admin Dose 25 MG; Start 06/20/16 at 14:00 Insulin Glargine (Lantus) 46 unit DAILY@20 SC ; Start 06/21/16 at 20:00 Lisinopril (Zestril) 20 mg DAILY PO Last administered on 06/23/16 08:24; Admin Dose 20 MG; Start 06/22/16 at 09:00; Status Future Hold Atorvastatin Calcium (Lipitor) 40 mg HS PO Last administered on 06/24/16 20:16 ; Admin Dose 40 MG; Start 06/22/16 at 21:00 Nitroglycerin (Nitroglycerin 0.4 Mg/Hr) 1 patch DAILY TRANSDERM Last administered on 06/24/16 09:35; Admin Dose 1 PATCH; Start 06/22/16 at 11:30 Morphine Sulfate (morphine) 2 mg Q4H PRN IV pain Last administered on 06/24/16 00:43; Admin Dose 2 MG; Start 06/22/16 at 10:30 SHARLA SOUSA MD Jun 24, 2016 20:28
[2016-06-24] MEDS: INSULIN GLARGINE [LANtus] 3 ML PEN SC SCH (21:39)
[2016-06-25] VITALS (13 sets, daily range): BP systolic 96–172; BP diastolic 54–77; PULSE 64–86; RESP 16–22
[2016-06-25] MEDS: morphine 2 MG INJ IV PRN (01:58)
[2016-06-25] MEDS: FUROSEMIDE 40 MG INJ IV SCH ×2 (05:08→17:38)
[2016-06-25] MEDS: PANTOPRAZOLE (EC) 40 MG TAB PO SCH (05:08)
[2016-06-25 07:35] LABS: ADD SCAN DIFF NO
[2016-06-25 07:39] LABS: BASOPHILS % 0.4 % (0.0-2.0); EOSINOPHILS # 0.1 10^3/ul (0.0-0.5); EOSINOPHILS % 1.8 % (0.0-7.0); HEMATOCRIT 29.9 % (37.0-47.0); HEMOGLOBIN 9.2 g/dl (12.0-16.0); LYMPHOCYTES # 1.7 10^3/ul (0.8-2.9); LYMPHOCYTES % 24.3 % (15.0-51.0); MEAN CORPUSCULAR HEMOGLOBIN 32.2 pg (29.0-33.0); MEAN CORPUSCULAR HGB CONC 30.8 g/dl (32.0-37.0); MEAN CORPUSCULAR VOLUME 104.5 fl (82.0-101.0); MEAN PLATELET VOLUME 10.9 fl (7.4-10.4); MONOCYTE # 0.7 10^3/ul (0.3-0.9); MONOCYTES % 9.6 % (0.0-11.0); NEUTROPHIL # 4.5 10^3/ul (1.6-7.5); NEUTROPHILS % 63.3 % (39.0-77.0); PLATELET COUNT 262 10^3/UL (140-415); RED BLOOD COUNT 2.86 10^6/ul (4.20-5.40); RED CELL DISTRIBUTION WIDTH 15.6 % (11.5-14.5); WHITE BLOOD COUNT 7.1 10^3/ul (4.8-10.8)
[2016-06-25 07:52] LABS: POTASSIUM 4.5 mmol/L (3.5-5.1)
[2016-06-25 07:55] LABS: CREATININE 2.39 mg/dl (0.44-1.00)
[2016-06-25 07:56] LABS: CALCIUM 8.2 mg/dl (8.4-10.2); PHOSPHORUS 4.8 mg/dl (2.5-4.9)
[2016-06-25] MEDS: INSULIN ASPART [NOVOLOG] 3 ML PEN SC SCH ×6 (08:15→21:00)
[2016-06-25] MEDS: NITROGLYCERIN 0.4 MG/HR PATCH TRANSDERM SCH (08:27)
[2016-06-25] MEDS: AMLODIPINE 10 MG TAB PO SCH (08:28)
[2016-06-25] MEDS: GABAPENTIN 300 MG CAP PO SCH ×3 (08:29→20:07)
[2016-06-25] MEDS: NEBIVOLOL 5 MG TAB PO SCH (08:29)
[2016-06-25] MEDS: VALACYCLOVIR 500 MG TAB PO SCH ×2 (08:30→20:07)
[2016-06-25] MEDS: LINAGLIPTIN 5 MG TABLET PO SCH (08:32)
[2016-06-25] MEDS: DOCUSATE SODIUM 100 MG CAP PO SCH ×2 (08:32→20:07)
[2016-06-25] MEDS: METHYLDOPA 500 MG TAB PO SCH ×2 (08:32→20:07)
[2016-06-25] MEDS: BETHANECHOL 25 MG TAB PO SCH ×3 (08:33→20:09)
[2016-06-25] MEDS: FLUTICASONE 0.05% 16 GM NAS SPRAY NASAL SCH ×2 (08:34→21:00)
--- NOTE | 2016-06-25 08:57 | PN ---
DATE: 06/25/2016 SUBJECTIVE: The patient is lethargic, but arousable, no other acute events noted overnight. No hem optysis, hematemesis, or hematochezia. OBJECTIVE: VITAL SIGNS: Blood pressure 143/62, respirations 16, pulse 80, temperature 98.0. I'S AND O'S: The patient had 1500 and 1600 out. HEENT: Head is normocephalic. NECK: Supple. HEART: Regular rate. LUNGS: Show diminished breath sounds at the base. ABDOMEN: Soft, nontender to palpation, no rebound or guarding. EXTREMITIES: Negative for clubbing, cyanosis. Positive edema. DERMATOLOGIC: No rashes. MUSCULOSKELETAL: No joint effusions. NEUROLOGIC: No change in exam. MEDICATIONS: The patient's medications have been reviewed. LABORATORY DATA: Shows sodium 146, potassium 4.4, BUN 41, creatinine 2.26. White count 7.1, hemogl obin 9.2, hematocrit 29.9, platelet count 262. IMAGING: The patient's chest x-ray on June 24 shows infiltrates suspicious for pulmonary edema. ASSESSMENT AND PLAN: 1. Nonoliguric acute kidney injury on top of chronic kidney disease with a baseline creatinine arou nd 2 mg/dL. Etiology of acute kidney injury is secondary to hemodynamics. Renal functions near bas staci. Will continue current treatment plan, supportive care, renally dose all medications and ben tor closely on diuretic therapy. 2. Acute decompensated heart failure. The patient is clinically improving. Repeat x-ray continues to show pulmonary edema. Continue Lasix at current dose 40 mg IV b.i.d. Monitor I's and O's close ly. 3. Acute hypoxemic respiratory failure secondary to systolic heart failure, chronic obstructive pul monary disease. The patient is clinically improving. Continue current medical management. 4. Right ovarian cystic mass concerning for neoplasm. The patient's laparoscopic surgery is on hol d until the patient is more clinically stable. Continue to monitor. 5. Hypertension. Continue current blood pressure regimen. 6. Anemia. Continue to monitor hemoglobin and hematocrit levels. 7. Diabetes. Continue current insulin regimen. Follow up with endocrinology. 8. History of coronary artery disease. Continue medical management. 9. Chronic kidney disease stage IV secondary to diabetes, hypertension. The patient's renal functi on is near baseline. Continue to monitor. 10. Morbid obesity. Continue dietary modification. 11. Sleep apnea. Continue supplemental oxygen. The patient refused CPAP. 12. Dyslipidemia. Continue statin therapy. 13. Neuropathy. Continue Lyrica. 14. Mild hyperkalemia, resolved. 15. Gastrointestinal and deep venous thrombosis prophylaxis. Continue proton pump inhibitor and se quential leg squeezers. Dictated By: CRISTA GAINES/BIRGIT Conf#: [id number] DID#: [id number]
[2016-06-25] MEDS: ALBUTEROL/IPRATROPIUM (NEB) 3 ML AMP HHN SCH ×3 (09:00→20:00)
[2016-06-25] MEDS: CAPSAICIN 0.025% 60 GM CR TOP SCH ×4 (09:00→20:09)
--- NOTE | 2016-06-25 09:49 | CONS ---
Date/Time of Note Date/Time of Note DATE: 06/25/16 TIME: 09:46 Assessment/Plan Assessment/Plan Additional Assessment/Plan Assessment and recommendations; 1. Patient admitted with acute urinary retention with interval improvement. Not requiring a catheter placement. 2. Incidental discovery made of right ovarian mass on CT imaging of the abdomen patient however is refusing any surgical intervention which is not unreasonable considering her multiple comorbidities. 3. Remote history of coronary artery bypass surgery.4. Renal insufficiency. 5. CHF. 6. Diabetes. 7. Hypertension. 8. Severe COPD, O2 dependent. Continue current treatment. Patient must go home. I will sign off thing for the consult. Please reconsult if needed. Consultation Date/Type/Reason Admit Date/Time Jun 09, 2016 at 12:22 Initial Consult Date 06/10/16 Type of Consultation: Pulmonary Referring Provider: CRISTA HERNANDEZ DO 24 HR Interval Summary Free Text/Dictation Patient's condition is stable. Sitting in a chair by bedside. Shortness of breath is slightly improved. Patient has decided to decline surgery for ovarian mass at this time. And wants to go home. Denies any chest pain, has stable dyspnea on exertion. Denies any cough, sputum production. Any abdominal pain nausea vomiting. General examination; elderly lady, currently in no distress awake and alert. Exam/Review of Systems Vital Signs Vitals Vital Signs Date Time Temp Pulse Resp B/P Pulse Ox O2 Delivery O2 Flow Rate FiO2 06/25/16 09:00 83 20 93 Nasal Cannula 3.0 06/25/16 08:00 98.2 143/66 06/24/16 14:14 32 Intake and Output 06/24/16 06/24/16 06/25/16 15:00 23:00 07:00 Intake Total 850 ml Balance 850 ml Exam H EENT examination; supple neck, pharynx is clear. Fair dentition. Midsize pupils. No neck masses. JVD difficult to see because of short neck. Chest examination; diminished but clear breath sounds bilaterally. S1-S2 audible, no murmurs. Regular rhythm. There is a well-healed sternal scar. Abdomen examination; protuberant. Bowel sounds audible. Extremity examination; chronic appearing 3+ pitting edema lower extremities bilaterally. [facility] examination; no focal deficit. Results Result Diagram: 3/2/17 0618 3/2/17 0618 Results 24 hrs Laboratory Tests Test 06/24/16 17:30 06/24/16 20:07 06/25/16 06:18 06/25/16 07:46 Bedside Glucose 228 H 215 185 Anion Gap 17 H Basophils # 0.0 Basophils % 0.4 Blood Urea Nitrogen 42 H Calcium Level 8.2 L Carbon Dioxide Level 27 Chloride Level 105 Creatinine 2.39 H Eosinophils # 0.1 Eosinophils % 1.8 Glucose Level 170 Hematocrit 29.9 L Hemoglobin 9.2 L Lymphocytes # 1.7 Lymphocytes % 24.3 Magnesium Level 2.0 Mean Corpuscular Hemoglobin 32.2 Mean Corpuscular Hemoglobin Concent 30.8 L Mean Corpuscular Volume 104.5 H Mean Platelet Volume 10.9 H Monocytes # 0.7 Monocytes % 9.6 Neutrophils # 4.5 Neutrophils % 63.3 Nucleated Red Blood Cells # 0.0 Nucleated Red Blood Cells % 0.0 Phosphorus Level 4.8 Platelet Count 262 Potassium Level 4.5 Red Blood Count 2.86 L Red Cell Distribution Width 15.6 H Sodium Level 144 White Blood Count 7.1 Medications Medications Current Medications Gabapentin (Neurontin) 600 mg TID PO Last administered on 06/25/16 08:29; Admin Dose 600 MG; Start 06/09/16 at 21:00 Miscellaneous Medication (Bystolic) 20 mg DAILY PO Last administered on 08:29; Admin Dose 20 MG; Start 06/10/16 at 09:00 Pregabalin (Lyrica) 150 mg QHS PO Last administered on 06/24/16 20:16; Admin Dose 150 MG; Start 06/09/16 at 21:00 Valacyclovir HCl (Valtrex) 1,000 mg BID PO Last administered on 06/25/16 08:30 ; Admin Dose 1,000 MG; Start 06/09/16 at 21:00 Miscellaneous Information 1 ea NOTE XX ; Start 06/09/16 at 18:30 Glucose (Glutose) 15 gm Q15M PRN PO DECREASED GLUCOSE; Start 06/09/16 at 18:30 Glucose (Glutose) 22.5 gm Q15M PRN PO DECREASED GLUCOSE; Start 06/09/16 at 18: 30 Dextrose (D50w Syringe) 25 ml Q15M PRN IV DECREASED GLUCOSE; Start 06/09/16 at 18:30 Dextrose (D50w Syringe) 50 ml Q15M PRN IV DECREASED GLUCOSE; Start 06/09/16 at 18:30 Glucagon (Glucagen) 1 mg Q15M PRN IM DECREASED GLUCOSE; Start 06/09/16 at 18:30 Glucose (Glutose) 15 gm Q15M PRN BUCCAL DECREASED GLUCOSE; Start 06/09/16 at 18 :30 Amlodipine Besylate (Norvasc) 10 mg DAILY PO Last administered on 06/25/16 08: 28; Admin Dose 10 MG; Start 06/09/16 at 20:30 Hydromorphone HCl (Dilaudid) 0.5 mg Q4H PRN IV PAIN Last administered on 01:03; Admin Dose 0.5 MG; Start 06/10/16 at 02:30 Methyldopa (Aldomet) 500 mg BID PO Last administered on 06/25/16 08:32; Admin Dose 500 MG; Start 06/10/16 at 02:30 Pantoprazole (Protonix Tab) 40 mg DAILY@06 PO Last administered on 06/25/16 05: 08; Admin Dose 40 MG; Start 06/11/16 at 06:00 Clonidine (Catapres) 0.2 mg Q6H PRN PO SBP above 160 Last administered on 10:22; Admin Dose 0.2 MG; Start 06/10/16 at 12:17 Hydralazine HCl (Apresoline) 10 mg Q4H PRN IV SBP >170 Last administered on 23:24; Admin Dose 10 MG; Start 06/10/16 at 15:00 Lorazepam (Ativan) 0.5 mg HS PO Last administered on 06/24/16 20:16; Admin Dose 0.5 MG; Start 06/11/16 at 22:00 Bethanechol Chloride (Urecholine) 25 mg TID PO Last administered on 06/25/16 08 :33; Admin Dose 25 MG; Start 06/13/16 at 13:00 Linagliptin (Tradjenta) 5 mg DAILY PO Last administered on 06/25/16 08:32; Admin Dose 5 MG; Start 06/16/16 at 09:00 Capsaicin (Theragen) 1 applic QID TOP Last administered on 06/24/16 20:27; Admin Dose 1 APPLIC; Start 06/15/16 at 21:00 Lidocaine (Lidocaine 5% Oint) 1 applic TID PRN TOP ITCHING/PAIN; Start at 15:30 Docusate Sodium (Colace) 100 mg BID PO Last administered on 06/25/16 08:32; Admin Dose 100 MG; Start 06/16/16 at 15:00 Bisacodyl (Dulcolax) 10 mg DAILY PRN PO CONSTIPATION Last administered on 20:44; Admin Dose 10 MG; Start 06/16/16 at 14:00 Guaifenesin/ Dextromethorphan (Robitussin Dm Liquid Cup) 10 ml Q4H PRN PO COUGH ; Start 06/17/16 at 17:30 Fluticasone Propionate (Flonase 0.05% Nasal) 1 spray BID NASAL Last administered on 06/25/16 08:34; Admin Dose 1 SPRAY; Start 06/19/16 at 09:00 Insulin Human NPH (Humulin N) 10 unit HS SC Last administered on 06/20/16 21: 04; Admin Dose 10 UNIT; Start 06/19/16 at 21:00; Status Future Hold Hydralazine HCl (Apresoline) 25 mg Q8 PO Last administered on 06/25/16 05:08; Admin Dose 25 MG; Start 06/20/16 at 14:00 Insulin Glargine (Lantus) 46 unit DAILY@20 SC Last administered on 06/24/16 21: 39; Admin Dose 46 UNIT; Start 06/21/16 at 20:00 Lisinopril (Zestril) 20 mg DAILY PO Last administered on 06/23/16 08:24; Admin Dose 20 MG; Start 06/22/16 at 09:00; Status Future Hold Atorvastatin Calcium (Lipitor) 40 mg HS PO Last administered on 06/24/16 20:16 ; Admin Dose 40 MG; Start 06/22/16 at 21:00 Nitroglycerin (Nitroglycerin 0.4 Mg/Hr) 1 patch DAILY TRANSDERM Last administered on 06/25/16 08:27; Admin Dose 1 PATCH; Start 06/22/16 at 11:30 Morphine Sulfate (morphine) 2 mg Q4H PRN IV pain Last administered on 06/25/16 01:58; Admin Dose 2 MG; Start 06/22/16 at 10:30 JAYME POP Jun 25, 2016 09:49
--- NOTE | 2016-06-25 18:32 | CONS ---
Date/Time of Note Date/Time of Note DATE: 06/25/16 TIME: 18:30 Assessment/Plan Assessment/Plan Chief Complaint/Hosp Course 1. A right ovarian cystic mass. Etiology is unclear, concerning for possible malignancy. ca 125-n AMENDMENT to CT AP 06/12/2016 2:01:08 PM Ethan Villanueva MD Comparison is made with prior CT scan of the abdomen and pelvis dated 11/23/2009. The large right adnexal mass measures 6.7 x 8.8 x 7.4 cm on the current study and measured 3.7 x 4.6 x 4.8 cm on 11/23/2009. MRI PELVIS- Large complex cystic right ovarian mass which in a postmenopausal female is worrisome for an ovarian cystic neoplasm. Multiple uterine masses consistent with a leiomyomatous uterus. SEEN BY GYNEONC-will observe urologic response to medication and surgery definitely an option but requires clearance. Would approach laparoscopic and can do LSH/BSO with minilap and stage if needed. D/W PT AND FAMILY- PT IS DECLINING SURGERY AT PRESENT PT IS IV LASIX AROUND THE CLOCK 2. Anemia. Continue to monitor hemoglobin and hematocrit levels. + component ACD OBSERVE FOR BLEEDING AND HEMOLYSIS SERVIN / NUMBNESS LUE- RESOLVED CT HEAD- NEG 3. Nonoliguric acute kidney injury on top of chronic kidney disease with a previous baseline renal function around 1.5 to 2 mg/dL. Etiology of acute kidney injury is possibly secondary to urinary retention, obstructive uropathy versus hemodynamics, possible cardiorenal syndrome. The patient's urinalysis shows findings of proteinuria but no pyuria, no hematuria, and a CT scan of the abdomen and pelvis showed no evidence of hydronephrosis. Plan at this point is to check a renal ultrasound. Will repeat UA with microanalysis. Will check urine electrolytes. Will continue supportive care, renally dose medications, avoid nephrotoxins, monitor renal function closely. Clinical albuminuria - PER NEPHROLOGY 4 Urinary retention. Underlying etiology is unclear. The patient is status post Flynn catheter placement with good urinary output. Seen by urology still unable to urinate on intermittent catheterizations URECHOLINE - DOSE INCREASED 5. Acute decompensated diastolic heart failure. The patient noted to have pulmonary congestion, lower extremity edema. The patient is status post Lasix; will continue- PER NEPHRO cardiology F-UP 6. History of coronary artery disease, status post coronary artery bypass graft. Continue current medical management. 7. Diabetes. Will continue Accu-Cheks, insulin sliding scale, continue Lantus. HB A1C- 8.1 8. Chronic kidney disease stage IIIB/IV. Etiology is multifactorial secondary to diabetes, hypertension. The patient is currently in acute kidney injury as stated above. Continue medical management. 9. Morbid obesity. Continue dietary modification. 10. Dyslipidemia. Continue statin therapy. 11. Obstructive sleep apnea. Continue supplemental oxygen. Consider a pulmonary consult for evaluation. 12. Hypertension- POORLY CONTROLLED Continue current blood pressure regimen. Will adjust medications as needed. CARDIOLOGY F-UP 13. History of peripheral vascular disease. Continue current medical management. 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 SEVERE DJD/OA WITH CHRONIC PAIN 16. GI PROBLEMS- WITH ABD PAIN, DIARRHEA/ ALTERNATING WITH CONSTIPATION GI EVAL AND F-UP Problems: Consultation Date/Type/Reason Admit Date/Time Jun 09, 2016 at 12:22 Initial Consult Date 06/09/16 [facility] of [facility]ation: [facility] Referring Provider: CRISTA HERNANDEZ DO 24 HR Interval Summary Free Text/Dictation ALL NOTED NO NEW EVENTS Patient's condition is stable. Sitting in a chair by bedside. Shortness of breath is slightly improved. Patient has decided to decline surgery for ovarian mass at this time. And wants to go home. Denies any chest pain, has stable dyspnea on exertion. Denies any cough, sputum production. Any abdominal pain nausea vomiting. Exam/Review of Systems Vital Signs Vitals Vital Signs Date Time Temp Pulse Resp B/P Pulse Ox O2 Delivery O2 Flow Rate FiO2 06/25/16 17:44 97.7 70 20 133/63 93 06/25/16 16:13 Nasal Cannula 3.0 06/24/16 14:14 32 Intake and Output 06/24/16 06/24/16 06/25/16 15:00 23:00 07:00 Intake Total 850 ml Balance 850 ml Exam HEENT examination; supple neck, JVD difficult to see because of short neck. No thyromegaly. Pharynx is clear. Pupils are midsize. No neck masses. No thyromegaly. Chest examination; diminished but clear breath sounds. S1-S2 audible, no murmurs. Regular rhythm. Abdomen examination; protuberant, nontender. Bowel sounds audible. Extremity examination; there is a slight reduction in lower extremity chronic appearing 2+ pitting edema. [facility] [employer] examination; no focal deficit. Results Result Diagram: 06/25/16 0618 06/25/16 0618 Results 24 hrs Laboratory Tests Test 06/24/16 20:07 06/25/16 06:18 06/25/16 07:46 06/25/16 12:00 Bedside Glucose 215 185 194 Anion Gap 17 H Basophils # 0.0 Basophils % 0.4 Blood Urea Nitrogen 42 H Calcium Level 8.2 L Carbon Dioxide Level 27 Chloride Level 105 Creatinine 2.39 H Eosinophils # 0.1 Eosinophils % 1.8 Glucose Level 170 Hematocrit 29.9 L Hemoglobin 9.2 L Lymphocytes # 1.7 Lymphocytes % 24.3 Magnesium Level 2.0 Mean Corpuscular Hemoglobin 32.2 Mean Corpuscular Hemoglobin Concent 30.8 L Mean Corpuscular Volume 104.5 H Mean Platelet Volume 10.9 H Monocytes # 0.7 Monocytes % 9.6 Neutrophils # 4.5 Neutrophils % 63.3 Nucleated Red Blood Cells # 0.0 Nucleated Red Blood Cells % 0.0 Phosphorus Level 4.8 Platelet Count 262 Potassium Level 4.5 Red Blood Count 2.86 L Red Cell Distribution Width 15.6 H Sodium Level 144 White Blood Count 7.1 Test 06/25/16 17:53 Bedside Glucose 113 Medications Medications Current Medications Gabapentin (Neurontin) 600 mg TID PO Last administered on 06/25/16 13:45; Admin Dose 600 MG; Start 06/09/16 at 21:00 Miscellaneous Medication (Bystolic) 20 mg DAILY PO Last administered on 08:29; Admin Dose 20 MG; Start 06/10/16 at 09:00 Pregabalin (Lyrica) 150 mg QHS PO Last administered on 06/24/16 20:16; Admin Dose 150 MG; Start 06/09/16 at 21:00 Valacyclovir HCl (Valtrex) 1,000 mg BID PO Last administered on 06/25/16 08:30 ; Admin Dose 1,000 MG; Start 06/09/16 at 21:00 Miscellaneous Information 1 ea NOTE XX ; Start 06/09/16 at 18:30 Glucose (Glutose) 15 gm Q15M PRN PO DECREASED GLUCOSE; Start 06/09/16 at 18:30 Glucose (Glutose) 22.5 gm Q15M PRN PO DECREASED GLUCOSE; Start 06/09/16 at 18: 30 Dextrose (D50w Syringe) 25 ml Q15M PRN IV DECREASED GLUCOSE; Start 06/09/16 at 18:30 Dextrose (D50w Syringe) 50 ml Q15M PRN IV DECREASED GLUCOSE; Start 06/09/16 at 18:30 Glucagon (Glucagen) 1 mg Q15M PRN IM DECREASED GLUCOSE; Start 06/09/16 at 18:30 Glucose (Glutose) 15 gm Q15M PRN BUCCAL DECREASED GLUCOSE; Start 06/09/16 at 18 :30 Amlodipine Besylate (Norvasc) 10 mg DAILY PO Last administered on 06/25/16 08: 28; Admin Dose 10 MG; Start 06/09/16 at 20:30 Hydromorphone HCl (Dilaudid) 0.5 mg Q4H PRN IV PAIN Last administered on 01:03; Admin Dose 0.5 MG; Start 06/10/16 at 02:30 Methyldopa (Aldomet) 500 mg BID PO Last administered on 06/25/16 08:32; Admin Dose 500 MG; Start 06/10/16 at 02:30 Pantoprazole (Protonix Tab) 40 mg DAILY@06 PO Last administered on 06/25/16 05: 08; Admin Dose 40 MG; Start 06/11/16 at 06:00 Clonidine (Catapres) 0.2 mg Q6H PRN PO SBP above 160 Last administered on 10:22; Admin Dose 0.2 MG; Start 06/10/16 at 12:17 Hydralazine HCl (Apresoline) 10 mg Q4H PRN IV SBP >170 Last administered on 23:24; Admin Dose 10 MG; Start 06/10/16 at 15:00 Lorazepam (Ativan) 0.5 mg HS PO Last administered on 06/24/16 20:16; Admin Dose 0.5 MG; Start 06/11/16 at 22:00 Bethanechol Chloride (Urecholine) 25 mg TID PO Last administered on 06/25/16 13 :46; Admin Dose 25 MG; Start 06/13/16 at 13:00 Linagliptin (Tradjenta) 5 mg DAILY PO Last administered on 06/25/16 08:32; Admin Dose 5 MG; Start 06/16/16 at 09:00 Capsaicin (Theragen) 1 applic QID TOP Last administered on 06/25/16 17:29; Admin Dose 1 APPLIC; Start 06/15/16 at 21:00 Lidocaine (Lidocaine 5% Oint) 1 applic TID PRN TOP ITCHING/PAIN; Start at 15:30 Docusate Sodium (Colace) 100 mg BID PO Last administered on 06/25/16 08:32; Admin Dose 100 MG; Start 06/16/16 at 15:00 Bisacodyl (Dulcolax) 10 mg DAILY PRN PO CONSTIPATION Last administered on 20:44; Admin Dose 10 MG; Start 06/16/16 at 14:00 Guaifenesin/ Dextromethorphan (Robitussin Dm Liquid Cup) 10 ml Q4H PRN PO COUGH ; Start 06/17/16 at 17:30 Fluticasone Propionate (Flonase 0.05% Nasal) 1 spray BID NASAL Last administered on 06/25/16 08:34; Admin Dose 1 SPRAY; Start 06/19/16 at 09:00 Insulin Human NPH (Humulin N) 10 unit HS SC Last administered on 06/20/16 21: 04; Admin Dose 10 UNIT; Start 06/19/16 at 21:00; Status Future Hold Hydralazine HCl (Apresoline) 25 mg Q8 PO Last administered on 06/25/16 13:47; Admin Dose 25 MG; Start 06/20/16 at 14:00 Insulin Glargine (Lantus) 46 unit DAILY@20 SC Last administered on 06/24/16 21: 39; Admin Dose 46 UNIT; Start 06/21/16 at 20:00 Lisinopril (Zestril) 20 mg DAILY PO Last administered on 06/23/16 08:24; Admin Dose 20 MG; Start 06/22/16 at 09:00; Status Future Hold Atorvastatin Calcium (Lipitor) 40 mg HS PO Last administered on 06/24/16 20:16 ; Admin Dose 40 MG; Start 06/22/16 at 21:00 Nitroglycerin (Nitroglycerin 0.4 Mg/Hr) 1 patch DAILY TRANSDERM Last administered on 06/25/16 08:27; Admin Dose 1 PATCH; Start 06/22/16 at 11:30 Morphine Sulfate (morphine) 2 mg Q4H PRN IV pain Last administered on 06/25/16 01:58; Admin Dose 2 MG; Start 06/22/16 at 10:30 SHARLA SOUSA MD Jun 25, 2016 18:32
[2016-06-25] MEDS ORDERED: BUMETANIDE 1 MG INJ IV ONE (19:00)
[2016-06-25] MEDS: ATORVASTATIN 40 MG TAB PO SCH (20:07)
[2016-06-25] MEDS: LORAZEPAM 0.5 MG TAB PO SCH (20:07)
[2016-06-25] MEDS: PREGABALIN 75 MG CAP PO SCH (20:08)
[2016-06-25] MEDS ORDERED: BUMETANIDE IV ONE (21:00)
[2016-06-25] MEDS ORDERED: DEXTROSE 5% IV ONE (21:00)
--- NOTE | 2016-06-25 21:15 | CONS ---
Date/Time of Note Date/Time of Note DATE: 06/25/16 TIME: 21:11 Assessment/Plan Assessment/Plan Chief Complaint/Hosp Course Acute on chronic diastolic heart failure: improving with diuresis Chest pain: ruled out for myocardial infarction Accelerated HTN: blood pressures improved Ovarian mass: Being evaluated by heme/onc. Surgery on hold Urinary retention: required martinez. now better Acute on chronic renal failure: improved after obstruction resolved. Stable h/o CAD s/p CABG DM PVD s/p renal stent -continue diuresis - on Bumex drip, monitor renal function -continue amlodipine 10mg, hydralazine 25mg q8h -continue home nebivolol, methyldopa -ASA, statin Problems: Consultation Date/Type/Reason Admit Date/Time Jun 09, 2016 at 12:22 Initial Consult Date 06/10/16 Type of Consultation: Cardiology 24 HR Interval Summary Free Text/Dictation Continues to have shortness of breath. Patient's family at bedside and refusing Bumex due to concern for worsening renal function. Discussed risks and benefits and they are agreeable to a lower dose than previously ordered. Detailed Summary Additional Comments 14 point review of systems without changes. Exam/Review of Systems Vital Signs Vitals Vital Signs Date Time Temp Pulse Resp B/P Pulse Ox O2 Delivery O2 Flow Rate FiO2 06/25/16 20:11 77 06/25/16 19:31 98.6 22 136/59 97 06/25/16 16:13 Nasal Cannula 3.0 06/24/16 14:14 32 Intake and Output 06/24/16 06/24/16 06/25/16 15:00 23:00 07:00 Intake Total 850 ml Balance 850 ml Exam Constitutional: alert, distress (mild respiratory ), oriented Head: atraumatic, normocephalic Neck: jvd (9cm) Respiratory: diminished breath sounds Cardiovascular: edema (2+), regular rate and rhythm, systolic murmur (2/6) Gastrointestinal: non-tender, soft Neurological: nl mental status, nl speech Results Result Diagram: 06/25/1618 06/25/1618 Results 24 hrs Laboratory Tests Test 06/25/16 06:18 06/25/16 07:46 06/25/16 12:00 06/25/16 17:53 Anion Gap 17 H Basophils # 0.0 Basophils % 0.4 Blood Urea Nitrogen 42 H Calcium Level 8.2 L Carbon Dioxide Level 27 Chloride Level 105 Creatinine 2.39 H Eosinophils # 0.1 Eosinophils % 1.8 Glucose Level 170 Hematocrit 29.9 L Hemoglobin 9.2 L Lymphocytes # 1.7 Lymphocytes % 24.3 Magnesium Level 2.0 Mean Corpuscular Hemoglobin 32.2 Mean Corpuscular Hemoglobin Concent 30.8 L Mean Corpuscular Volume 104.5 H Mean Platelet Volume 10.9 H Monocytes # 0.7 Monocytes % 9.6 Neutrophils # 4.5 Neutrophils % 63.3 Nucleated Red Blood Cells # 0.0 Nucleated Red Blood Cells % 0.0 Phosphorus Level 4.8 Platelet Count 262 Potassium Level 4.5 Red Blood Count 2.86 L Red Cell Distribution Width 15.6 H Sodium Level 144 White Blood Count 7.1 Bedside Glucose 185 194 113 Medications Medications Current Medications Gabapentin (Neurontin) 600 mg TID PO Last administered on 06/25/16 20:07; Admin Dose 600 MG; Start 06/09/16 at 21:00 Miscellaneous Medication (Bystolic) 20 mg DAILY PO Last administered on 08:29; Admin Dose 20 MG; Start 06/10/16 at 09:00 Pregabalin (Lyrica) 150 mg QHS PO Last administered on 06/25/16 20:08; Admin Dose 150 MG; Start 06/09/16 at 21:00 Valacyclovir HCl (Valtrex) 1,000 mg BID PO Last administered on 06/25/16 20:07 ; Admin Dose 1,000 MG; Start 06/09/16 at 21:00 Miscellaneous Information 1 ea NOTE XX ; Start 06/09/16 at 18:30 Glucose (Glutose) 15 gm Q15M PRN PO DECREASED GLUCOSE; Start 06/09/16 at 18:30 Glucose (Glutose) 22.5 gm Q15M PRN PO DECREASED GLUCOSE; Start 06/09/16 at 18: 30 Dextrose (D50w Syringe) 25 ml Q15M PRN IV DECREASED GLUCOSE; Start 06/09/16 at 18:30 Dextrose (D50w Syringe) 50 ml Q15M PRN IV DECREASED GLUCOSE; Start 06/09/16 at 18:30 Glucagon (Glucagen) 1 mg Q15M PRN IM DECREASED GLUCOSE; Start 06/09/16 at 18:30 Glucose (Glutose) 15 gm Q15M PRN BUCCAL DECREASED GLUCOSE; Start 06/09/16 at 18 :30 Amlodipine Besylate (Norvasc) 10 mg DAILY PO Last administered on 06/25/16 08: 28; Admin Dose 10 MG; Start 06/09/16 at 20:30 Hydromorphone HCl (Dilaudid) 0.5 mg Q4H PRN IV PAIN Last administered on 01:03; Admin Dose 0.5 MG; Start 06/10/16 at 02:30 Methyldopa (Aldomet) 500 mg BID PO Last administered on 06/25/16 20:07; Admin Dose 500 MG; Start 06/10/16 at 02:30 Pantoprazole (Protonix Tab) 40 mg DAILY@06 PO Last administered on 06/25/16 05: 08; Admin Dose 40 MG; Start 06/11/16 at 06:00 Clonidine (Catapres) 0.2 mg Q6H PRN PO SBP above 160 Last administered on 10:22; Admin Dose 0.2 MG; Start 06/10/16 at 12:17 Hydralazine HCl (Apresoline) 10 mg Q4H PRN IV SBP >170 Last administered on 23:24; Admin Dose 10 MG; Start 06/10/16 at 15:00 Lorazepam (Ativan) 0.5 mg HS PO Last administered on 06/25/16 20:07; Admin Dose 0.5 MG; Start 06/11/16 at 22:00 Bethanechol Chloride (Urecholine) 25 mg TID PO Last administered on 06/25/16 20 :09; Admin Dose 25 MG; Start 06/13/16 at 13:00 Linagliptin (Tradjenta) 5 mg DAILY PO Last administered on 06/25/16 08:32; Admin Dose 5 MG; Start 06/16/16 at 09:00 Capsaicin (Theragen) 1 applic QID TOP Last administered on 06/25/16 20:09; Admin Dose 1 APPLIC; Start 06/15/16 at 21:00 Lidocaine (Lidocaine 5% Oint) 1 applic TID PRN TOP ITCHING/PAIN; Start at 15:30 Docusate Sodium (Colace) 100 mg BID PO Last administered on 06/25/16 20:07; Admin Dose 100 MG; Start 06/16/16 at 15:00 Bisacodyl (Dulcolax) 10 mg DAILY PRN PO CONSTIPATION Last administered on 20:44; Admin Dose 10 MG; Start 06/16/16 at 14:00 Guaifenesin/ Dextromethorphan (Robitussin Dm Liquid Cup) 10 ml Q4H PRN PO COUGH ; Start 06/17/16 at 17:30 Fluticasone Propionate (Flonase 0.05% Nasal) 1 spray BID NASAL Last administered on 06/25/16 08:34; Admin Dose 1 SPRAY; Start 06/19/16 at 09:00 Insulin Human NPH (Humulin N) 10 unit HS SC Last administered on 06/20/16 21: 04; Admin Dose 10 UNIT; Start 06/19/16 at 21:00; Status Future Hold Hydralazine HCl (Apresoline) 25 mg Q8 PO Last administered on 06/25/16 13:47; Admin Dose 25 MG; Start 06/20/16 at 14:00 Insulin Glargine (Lantus) 46 unit DAILY@20 SC Last administered on 06/24/16 21: 39; Admin Dose 46 UNIT; Start 06/21/16 at 20:00 Lisinopril (Zestril) 20 mg DAILY PO Last administered on 06/23/16 08:24; Admin Dose 20 MG; Start 06/22/16 at 09:00; Status Future Hold Atorvastatin Calcium (Lipitor) 40 mg HS PO Last administered on 06/25/16 20:07 ; Admin Dose 40 MG; Start 06/22/16 at 21:00 Nitroglycerin (Nitroglycerin 0.4 Mg/Hr) 1 patch DAILY TRANSDERM Last administered on 06/25/16 08:27; Admin Dose 1 PATCH; Start 06/22/16 at 11:30 Morphine Sulfate 2 mg 2 mg Q4H PRN IV pain Last administered on 06/25/16 01:58 ; Admin Dose 2 MG; Start 06/22/16 at 10:30 Bumetanide 8 mg/ Dextrose 80 ml @ 10 mls/hr Q8H ONCE IV ; Start 06/25/16 at 21:00 ; Stop 06/26/16 at 04:59 Bumetanide/ Dextrose (Bumex/D5W) 166 ml @ 10 mls/hr [id number] IV ; Start 06/25/16 at 21:30; Status UNV LOLI MCCARTNEY MD Jun 25, 2016 21:15
[2016-06-25] MEDS: INSULIN GLARGINE [LANtus] 3 ML PEN SC SCH (22:06)
[2016-06-25] MEDS ORDERED: BUMETANIDE 4 MG in DEXTROSE 5% 24 ML IV ONE (22:30)
[2016-06-26] VITALS (12 sets, daily range): BP systolic 118–147; BP diastolic 54–81; PULSE 64–77; RESP 17–22
[2016-06-26] MEDS: HYDROmorphONE 1 MG/ML SYG IV PRN (01:54)
[2016-06-26] MEDS: PANTOPRAZOLE (EC) 40 MG TAB PO SCH (06:00)
[2016-06-26] MEDS: ALBUTEROL/IPRATROPIUM (NEB) 3 ML AMP HHN SCH ×3 (07:44→19:59)
[2016-06-26 07:57] LABS: ADD SCAN DIFF NO
[2016-06-26 07:59] LABS: BASOPHILS % 0.3 % (0.0-2.0); EOSINOPHILS # 0.1 10^3/ul (0.0-0.5); EOSINOPHILS % 2.2 % (0.0-7.0); HEMATOCRIT 31.3 % (37.0-47.0); HEMOGLOBIN 9.3 g/dl (12.0-16.0); LYMPHOCYTES # 1.7 10^3/ul (0.8-2.9); LYMPHOCYTES % 26.1 % (15.0-51.0); MEAN CORPUSCULAR HEMOGLOBIN 31.5 pg (29.0-33.0); MEAN CORPUSCULAR HGB CONC 29.7 g/dl (32.0-37.0); MEAN CORPUSCULAR VOLUME 106.1 fl (82.0-101.0); MEAN PLATELET VOLUME 11.3 fl (7.4-10.4); MONOCYTE # 0.7 10^3/ul (0.3-0.9); MONOCYTES % 10.7 % (0.0-11.0); NEUTROPHIL # 3.8 10^3/ul (1.6-7.5); NEUTROPHILS % 59.8 % (39.0-77.0); PLATELET COUNT 255 10^3/UL (140-415); RED BLOOD COUNT 2.95 10^6/ul (4.20-5.40); RED CELL DISTRIBUTION WIDTH 15.9 % (11.5-14.5); WHITE BLOOD COUNT 6.4 10^3/ul (4.8-10.8)
[2016-06-26] MEDS: GABAPENTIN 300 MG CAP PO SCH ×3 (08:15→21:33)
[2016-06-26] MEDS: AMLODIPINE 10 MG TAB PO SCH (08:16)
[2016-06-26] MEDS: VALACYCLOVIR 500 MG TAB PO SCH ×2 (08:16→21:32)
[2016-06-26] MEDS: LINAGLIPTIN 5 MG TABLET PO SCH (08:17)
[2016-06-26] MEDS: BETHANECHOL 25 MG TAB PO SCH ×3 (08:17→21:42)
[2016-06-26] MEDS: DOCUSATE SODIUM 100 MG CAP PO SCH ×2 (08:17→21:32)
[2016-06-26] MEDS: NEBIVOLOL 5 MG TAB PO SCH (08:17)
[2016-06-26] MEDS: CAPSAICIN 0.025% 60 GM CR TOP SCH ×4 (08:18→21:33)
[2016-06-26] MEDS: NITROGLYCERIN 0.4 MG/HR PATCH TRANSDERM SCH (08:18)
[2016-06-26] MEDS: METHYLDOPA 250 MG TAB PO SCH ×2 (08:23→21:32)
[2016-06-26] MEDS: INSULIN ASPART [NOVOLOG] 3 ML PEN SC SCH ×7 (08:43→21:40)
[2016-06-26 08:53] LABS: CREATININE 2.45 mg/dl (0.44-1.00)
[2016-06-26 08:54] LABS: PHOSPHORUS 5.6 mg/dl (2.5-4.9)
[2016-06-26 08:55] LABS: CALCIUM 8.8 mg/dl (8.4-10.2); MAGNESIUM 2.2 mg/dl (1.7-2.5)
--- NOTE | 2016-06-26 08:58 | PN ---
DATE: 06/26/2016 SUBJECTIVE: The patient continues to be tachypneic this morning, short of breath. Last night, the patient was placed on a Bumex drip. Urinary output is unclear as the patient has refused Flynn cath eter. I spoke with the patient again about placing Flynn catheter for strict monitoring. She refus ed this. No other events noted. No hemoptysis, hematemesis, hematochezia. OBJECTIVE: VITAL SIGNS: Blood pressure 147/65, respirations 20, pulse 68, temperature 98.3. INPUT AND OUTPUT: 1400 in, output unknown. HEENT: Head is normocephalic. NECK: Supple. HEART: Regular rate. LUNGS: Show diminished breath sounds at the base. Positive crackles. ABDOMEN: Soft, nontender to palpation, obese. EXTREMITIES: Negative for clubbing, cyanosis. Positive edema. DERMATOLOGIC: No rashes. MUSCULOSKELETAL: No joint effusions. NEUROLOGIC: No change in exam. MEDICATIONS: The patient's medications have been reviewed. LABORATORY DATA: Currently pending. ASSESSMENT AND PLAN: 1. Acute hypoxemic respiratory failure, etiology secondary to decompensated systolic/diastolic hear t failure, chronic obstructive pulmonary disease. The patient has declined in the last 24 hours iris pite being placed on a Bumex drip overnight. Recent chest x-ray does show worsening congestion. Pl an is to intensify diuretic therapy. We will give Bumex 2 mg IV b.i.d. with metolazone. We will re peat a chest x-ray. We will also monitor strict I's and O's. We will follow up with pulmonary and cardiology for further recommendations and monitor closely. 2. Nonoliguric acute kidney injury on top of chronic kidney disease, stage IV, with previous baseli ne creatinine around 2 mg/dL. Etiology of acute kidney injury is secondary to hemodynamics. Renal function has declined in the last 24 to 48 hours. Likely due to diuretic therapy. We will continue to monitor closely. If the patient's renal function should further decline and the patient becomes nonresponsive to diuretic therapy, we would then consider starting renal replacement therapy. Othe rwise, continue supportive care, renally dose all meds, avoid nephrotoxins. 3. Acute decompensated systolic/diastolic heart failure. The patient has clinically declined in last 24 hours. The patient continues to be short of breath. We will continue diuretic regimen as stated above. Follow up chest x-ray. Follow up with cardiology for further recommendations. 4. Right ovarian cystic mass concerning for neoplasm. The patient's surgery is currently on hold u ntil she is clinically more stable. 5. Hypertension. Continue current blood pressure regimen. 6. Anemia. Continue to monitor hemoglobin and hematocrit levels. 7. Diabetes. Continue current insulin regimen. Follow up with endocrinology. 8. History of coronary artery disease. 9. Chronic kidney disease, stage IV, secondary to diabetes, hypertension. The patient is currently in acute kidney injury as stated above. Continue to monitor. 10. Morbid obesity. Continue dietary modification. 11. Sleep apnea. The patient has refused CPAP on supplemental oxygen. 12. Dyslipidemia. Continue statin therapy. 13. Neuropathy. Continue Lyrica. 14. Mild hyperkalemia, resolved. 15. Gastrointestinal and deep venous thrombosis prophylaxis. Continue proton pump inhibitor and se quential leg squeezers. Dictated By: CRISTA GAINES/BIRGIT Conf#: [id number] DID#: [id number]
[2016-06-26] MEDS: BUMETANIDE 1 MG INJ IV SCH ×2 (11:04→17:16)
[2016-06-26] MEDS: METOLAZONE 2.5 MG TAB PO SCH (11:11)
--- NOTE | 2016-06-26 11:34 | RADRPT ---
PROCEDURE: XR Chest. CLINICAL INDICATION: Congestive heart failure TECHNIQUE: Chest AP portable. COMPARISON: 06/24/2016 FINDINGS: Sternotomy and CABG. The mediastinal structures are unremarkable. There is calcification of the thoracic aorta (consiste nt with atherosclerosis). There is moderate cardiac enlargement. There is no change in the congest yady heart failure with possible lower lobe edema. There are possible small pleural effusions. Ther e are senescent changes of the axial skeleton. IMPRESSION: Moderate cardiac enlargement. No change in congestive heart failure with possible lower lobe edema. Small bilateral pleural effusions RPTAT: HGDB .Durga Mahajan MD, Date Time Electronically viewed and signed by .Durga Mahajan MD, on 06/26/2016 11:34 .B/
[2016-06-26] MEDS: FLUTICASONE 0.05% 16 GM NAS SPRAY NASAL SCH ×2 (12:28→21:42)
--- NOTE | 2016-06-26 14:03 | CONS ---
Date/Time of Note Date/Time of Note DATE: 06/26/16 TIME: 13:58 Assessment/Plan Assessment/Plan Chief Complaint/Hosp Course 1. A right ovarian cystic mass. Etiology is unclear, concerning for possible malignancy. PT IS DECLINING SURGERY AT PRESENT 2. Anemia. Continue to monitor hemoglobin and hematocrit levels. + component ACD OBSERVE FOR BLEEDING AND HEMOLYSIS SERVIN / NUMBNESS LUE- RESOLVED CT HEAD- NEG 3. Nonoliguric acute kidney injury on top of chronic kidney disease with a previous baseline renal function around 1.5 to 2 mg/dL. Etiology of acute kidney injury is possibly secondary to urinary retention, obstructive uropathy versus hemodynamics, possible cardiorenal syndrome. The patient's urinalysis shows findings of proteinuria but no pyuria, no hematuria, and a CT scan of the abdomen and pelvis showed no evidence of hydronephrosis. Plan at this point is to check a renal ultrasound. Will repeat UA with microanalysis. Will check urine electrolytes. Will continue supportive care, renally dose medications, avoid nephrotoxins, monitor renal function closely. Clinical albuminuria - PER NEPHROLOGY 4 Urinary retention. Underlying etiology is unclear. The patient is status post Flynn catheter placement with good urinary output. Seen by urology still unable to urinate on intermittent catheterizations URECHOLINE - DOSE INCREASED 5. Acute decompensated diastolic heart failure. The patient noted to have pulmonary congestion, lower extremity edema. The patient is status post Lasix; will continue- PER NEPHRO cardiology F-UP PT IS IV BUMEX AROUND THE CLOCK 6. History of coronary artery disease, status post coronary artery bypass graft. Continue current medical management. 7. Diabetes. Will continue Accu-Cheks, insulin sliding scale, continue Lantus. HB A1C- 8.1 8. Chronic kidney disease stage IIIB/IV. Etiology is multifactorial secondary to diabetes, hypertension. The patient is currently in acute kidney injury as stated above. Continue medical management. 9. Morbid obesity. Continue dietary modification. 10. Dyslipidemia. Continue statin therapy. 11. Obstructive sleep apnea. Continue supplemental oxygen. Consider a pulmonary consult for evaluation. 12. Hypertension- POORLY CONTROLLED Continue current blood pressure regimen. Will adjust medications as needed. CARDIOLOGY F-UP 13. History of peripheral vascular disease. Continue current medical management. 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 SEVERE DJD/OA WITH CHRONIC PAIN 16. GI PROBLEMS- WITH ABD PAIN, DIARRHEA/ ALTERNATING WITH CONSTIPATION GI F-UP Problems: Consultation Date/Type/Reason Admit Date/Time Jun 09, 2016 at 12:22 Initial Consult Date 06/09/16 Type of Consultation: HEMEONC Reason for Consultation OVARIAN MASS Referring Provider: CRISTA HERNANDEZ DO 24 HR Interval Summary Free Text/Dictation ALL NOTED ON BUMEX UO-NOT DOCUMENTED Exam/Review of Systems Vital Signs Vitals Vital Signs Date Time Temp Pulse Resp B/P Pulse Ox O2 Delivery O2 Flow Rate FiO2 06/26/16 12:06 77 06/26/16 11:27 98.0 19 125/58 92 06/26/16 08:15 Nasal Cannula 3.0 06/24/16 14:14 32 Intake and Output 06/25/16 06/25/16 06/26/16 15:00 23:00 07:00 Intake Total 1440 ml Balance 1440 ml Exam HEENT examination; supple neck, JVD difficult to see because of short neck. No thyromegaly. Pharynx is clear. Pupils are midsize. No neck masses. No thyromegaly. Chest examination; diminished but clear breath sounds. S1-S2 audible, no murmurs. Regular rhythm. Abdomen examination; protuberant, nontender. Bowel sounds audible. Extremity examination; there is a slight reduction in lower extremity chronic appearing 2+ pitting edema. [employer] examination; no focal deficit. Results Result Diagram: 06/26/16 0700 06/26/16 0700 Results 24 hrs Laboratory Tests Test 06/25/16 17:53 06/25/16 22:00 06/26/16 07:00 06/26/16 07:49 Bedside Glucose 113 187 187 Anion Gap 19 H Basophils # 0.0 Basophils % 0.3 Blood Urea Nitrogen 48 H Calcium Level 8.8 Carbon Dioxide Level 24 Chloride Level 107 Creatinine 2.45 H Eosinophils # 0.1 Eosinophils % 2.2 Glucose Level 177 Hematocrit 31.3 L Hemoglobin 9.3 L Lymphocytes # 1.7 Lymphocytes % 26.1 Magnesium Level 2.2 Mean Corpuscular Hemoglobin 31.5 Mean Corpuscular Hemoglobin Concent 29.7 L Mean Corpuscular Volume 106.1 H Mean Platelet Volume 11.3 H Monocytes # 0.7 Monocytes % 10.7 Neutrophils # 3.8 Neutrophils % 59.8 Nucleated Red Blood Cells # 0.0 Nucleated Red Blood Cells % 0.0 Phosphorus Level 5.6 H Platelet Count 255 Potassium Level 5.0 Red Blood Count 2.95 L Red Cell Distribution Width 15.9 H Sodium Level 145 H White Blood Count 6.4 Test 06/26/16 11:27 Bedside Glucose 239 H Medications Medications Current Medications Gabapentin (Neurontin) 600 mg TID PO Last administered on 06/26/16 08:15; Admin Dose 600 MG; Start 06/09/16 at 21:00 Miscellaneous Medication (Bystolic) 20 mg DAILY PO Last administered on 08:17; Admin Dose 20 MG; Start 06/10/16 at 09:00 Pregabalin (Lyrica) 150 mg QHS PO Last administered on 06/25/16 20:08; Admin Dose 150 MG; Start 06/09/16 at 21:00 Valacyclovir HCl (Valtrex) 1,000 mg BID PO Last administered on 06/26/16 08:16 ; Admin Dose 1,000 MG; Start 06/09/16 at 21:00 Miscellaneous Information 1 ea NOTE XX ; Start 06/09/16 at 18:30 Glucose (Glutose) 15 gm Q15M PRN PO DECREASED GLUCOSE; Start 06/09/16 at 18:30 Glucose (Glutose) 22.5 gm Q15M PRN PO DECREASED GLUCOSE; Start 06/09/16 at 18: 30 Dextrose (D50w Syringe) 25 ml Q15M PRN IV DECREASED GLUCOSE; Start 06/09/16 at 18:30 Dextrose (D50w Syringe) 50 ml Q15M PRN IV DECREASED GLUCOSE; Start 06/09/16 at 18:30 Glucagon (Glucagen) 1 mg Q15M PRN IM DECREASED GLUCOSE; Start 06/09/16 at 18:30 Glucose (Glutose) 15 gm Q15M PRN BUCCAL DECREASED GLUCOSE; Start 06/09/16 at 18 :30 Amlodipine Besylate (Norvasc) 10 mg DAILY PO Last administered on 06/26/16 08: 16; Admin Dose 10 MG; Start 06/09/16 at 20:30 Hydromorphone HCl (Dilaudid) 0.5 mg Q4H PRN IV PAIN Last administered on 01:54; Admin Dose 0.5 MG; Start 06/10/16 at 02:30 Pantoprazole (Protonix Tab) 40 mg DAILY@06 PO Last administered on 06/25/16 05: 08; Admin Dose 40 MG; Start 06/11/16 at 06:00 Clonidine (Catapres) 0.2 mg Q6H PRN PO SBP above 160 Last administered on 10:22; Admin Dose 0.2 MG; Start 06/10/16 at 12:17 Hydralazine HCl (Apresoline) 10 mg Q4H PRN IV SBP >170 Last administered on 23:24; Admin Dose 10 MG; Start 06/10/16 at 15:00 Lorazepam (Ativan) 0.5 mg HS PO Last administered on 06/25/16 20:07; Admin Dose 0.5 MG; Start 06/11/16 at 22:00 Bethanechol Chloride (Urecholine) 25 mg TID PO Last administered on 06/26/16 08 :17; Admin Dose 25 MG; Start 06/13/16 at 13:00 Linagliptin (Tradjenta) 5 mg DAILY PO Last administered on 06/26/16 08:17; Admin Dose 5 MG; Start 06/16/16 at 09:00 Capsaicin (Theragen) 1 applic QID TOP Last administered on 06/26/16 08:18; Admin Dose 1 APPLIC; Start 06/15/16 at 21:00 Lidocaine (Lidocaine 5% Oint) 1 applic TID PRN TOP ITCHING/PAIN; Start at 15:30 Docusate Sodium (Colace) 100 mg BID PO Last administered on 06/26/16 08:17; Admin Dose 100 MG; Start 06/16/16 at 15:00 Bisacodyl (Dulcolax) 10 mg DAILY PRN PO CONSTIPATION Last administered on 20:44; Admin Dose 10 MG; Start 06/16/16 at 14:00 Guaifenesin/ Dextromethorphan (Robitussin Dm Liquid Cup) 10 ml Q4H PRN PO COUGH ; Start 06/17/16 at 17:30 Fluticasone Propionate (Flonase 0.05% Nasal) 1 spray BID NASAL Last administered on 06/26/16 12:28; Admin Dose 1 SPRAY; Start 06/19/16 at 09:00 Insulin Human NPH (Humulin N) 10 unit HS SC Last administered on 06/20/16 21: 04; Admin Dose 10 UNIT; Start 06/19/16 at 21:00; Status Future Hold Hydralazine HCl (Apresoline) 25 mg Q8 PO Last administered on 06/25/16 22:13; Admin Dose 25 MG; Start 06/20/16 at 14:00 Insulin Glargine (Lantus) 46 unit DAILY@20 SC Last administered on 06/25/16 22: 06; Admin Dose 46 UNIT; Start 06/21/16 at 20:00 Lisinopril (Zestril) 20 mg DAILY PO Last administered on 06/23/16 08:24; Admin Dose 20 MG; Start 06/22/16 at 09:00; Status Future Hold Atorvastatin Calcium (Lipitor) 40 mg HS PO Last administered on 06/25/16 20:07 ; Admin Dose 40 MG; Start 06/22/16 at 21:00 Nitroglycerin (Nitroglycerin 0.4 Mg/Hr) 1 patch DAILY TRANSDERM Last administered on 06/26/16 08:18; Admin Dose 1 PATCH; Start 06/22/16 at 11:30 Morphine Sulfate (morphine) 2 mg Q4H PRN IV pain Last administered on 06/25/16 01:58; Admin Dose 2 MG; Start 06/22/16 at 10:30 Methyldopa (Aldomet) 500 mg BID PO Last administered on 06/26/16 08:23; Admin Dose 500 MG; Start 06/26/16 at 09:00 Metolazone (Zaroxolyn) 2.5 mg DAILY PO Last administered on 06/26/16 11:11; Admin Dose 2.5 MG; Start 06/26/16 at 09:00 Procedures Procedures PROCEDURE: XR Chest. CLINICAL INDICATION: Congestive heart failure TECHNIQUE: Chest AP portable. COMPARISON: 06/24/2016 FINDINGS: Sternotomy and CABG. The mediastinal structures are unremarkable. There is calcification of the thoracic aorta (consistent with atherosclerosis). There is moderate cardiac enlargement. There is no change in the congestive heart failure with possible lower lobe edema. There are possible small pleural effusions. There are senescent changes of the axial skeleton. IMPRESSION: Moderate cardiac enlargement. No change in congestive heart failure with possible lower lobe edema. Small bilateral pleural effusions SHARLA SOUSA MD Jun 26, 2016 14:03
--- NOTE | 2016-06-26 17:13 | CONS ---
Date/Time of Note Date/Time of Note DATE: 06/26/16 TIME: 17:11 Assessment/Plan Assessment/Plan Chief Complaint/Hosp Course Acute on chronic diastolic heart failure: on diuretics Chest pain: ruled out for myocardial infarction Accelerated HTN: blood pressures improved Ovarian mass: patient now refusing surgery Urinary retention: required martinez. now better Acute on chronic renal failure: improved after obstruction resolved. Stable h/o CAD s/p CABG DM PVD s/p renal stent -continue diuresis - on Bumex and metolazone -continue amlodipine 10mg, hydralazine 25mg q8h -continue home nebivolol, methyldopa -ASA, statin Problems: Consultation Date/Type/Reason Admit Date/Time Jun 09, 2016 at 12:22 Initial Consult Date 06/10/16 Type of Consultation: Cardiology 24 HR Interval Summary Free Text/Dictation Still complaining of shortness of breath. Urine output unclear, patient refuses Martinez catheter. Detailed Summary Additional Comments 14 point review of systems without changes. Exam/Review of Systems Vital Signs Vitals Vital Signs Date Time Temp Pulse Resp B/P Pulse Ox O2 Delivery O2 Flow Rate FiO2 06/26/16 16:27 64 06/26/16 15:34 98.3 22 135/81 90 06/26/16 15:24 3.0 06/26/16 14:18 Nasal Cannula 06/24/16 14:14 32 Intake and Output 06/25/16 06/25/16 06/26/16 15:00 23:00 07:00 Intake Total 1440 ml Balance 1440 ml Exam Constitutional: alert, distress (mild respiratory ), oriented Head: atraumatic, normocephalic Neck: jvd (9cm) Respiratory: diminished breath sounds Cardiovascular: edema (2+), regular rate and rhythm, systolic murmur (2/6) Gastrointestinal: non-tender, soft Neurological: nl mental status, nl speech Results Result Diagram: 06/26/16 0700 06/26/16 0700 Results 24 hrs Laboratory Tests Test 06/25/16 17:53 06/25/16 22:00 06/26/16 07:00 06/26/16 07:49 Bedside Glucose 113 187 187 Anion Gap 19 H Basophils # 0.0 Basophils % 0.3 Blood Urea Nitrogen 48 H Calcium Level 8.8 Carbon Dioxide Level 24 Chloride Level 107 Creatinine 2.45 H Eosinophils # 0.1 Eosinophils % 2.2 Glucose Level 177 Hematocrit 31.3 L Hemoglobin 9.3 L Lymphocytes # 1.7 Lymphocytes % 26.1 Magnesium Level 2.2 Mean Corpuscular Hemoglobin 31.5 Mean Corpuscular Hemoglobin Concent 29.7 L Mean Corpuscular Volume 106.1 H Mean Platelet Volume 11.3 H Monocytes # 0.7 Monocytes % 10.7 Neutrophils # 3.8 Neutrophils % 59.8 Nucleated Red Blood Cells # 0.0 Nucleated Red Blood Cells % 0.0 Phosphorus Level 5.6 H Platelet Count 255 Potassium Level 5.0 Red Blood Count 2.95 L Red Cell Distribution Width 15.9 H Sodium Level 145 H White Blood Count 6.4 Test 06/26/16 11:27 Bedside Glucose 239 H Medications Medications Current Medications Gabapentin (Neurontin) 600 mg TID PO Last administered on 06/26/16 14:43; Admin Dose 600 MG; Start 06/09/16 at 21:00 Miscellaneous Medication (Bystolic) 20 mg DAILY PO Last administered on 08:17; Admin Dose 20 MG; Start 06/10/16 at 09:00 Pregabalin (Lyrica) 150 mg QHS PO Last administered on 06/25/16 20:08; Admin Dose 150 MG; Start 06/09/16 at 21:00 Valacyclovir HCl (Valtrex) 1,000 mg BID PO Last administered on 06/26/16 08:16 ; Admin Dose 1,000 MG; Start 06/09/16 at 21:00 Miscellaneous Information 1 ea NOTE XX ; Start 06/09/16 at 18:30 Glucose (Glutose) 15 gm Q15M PRN PO DECREASED GLUCOSE; Start 06/09/16 at 18:30 Glucose (Glutose) 22.5 gm Q15M PRN PO DECREASED GLUCOSE; Start 06/09/16 at 18: 30 Dextrose (D50w Syringe) 25 ml Q15M PRN IV DECREASED GLUCOSE; Start 06/09/16 at 18:30 Dextrose (D50w Syringe) 50 ml Q15M PRN IV DECREASED GLUCOSE; Start 06/09/16 at 18:30 Glucagon (Glucagen) 1 mg Q15M PRN IM DECREASED GLUCOSE; Start 06/09/16 at 18:30 Glucose (Glutose) 15 gm Q15M PRN BUCCAL DECREASED GLUCOSE; Start 06/09/16 at 18 :30 Amlodipine Besylate (Norvasc) 10 mg DAILY PO Last administered on 06/26/16 08: 16; Admin Dose 10 MG; Start 06/09/16 at 20:30 Hydromorphone HCl (Dilaudid) 0.5 mg Q4H PRN IV PAIN Last administered on 01:54; Admin Dose 0.5 MG; Start 06/10/16 at 02:30 Pantoprazole (Protonix Tab) 40 mg DAILY@06 PO Last administered on 06/25/16 05: 08; Admin Dose 40 MG; Start 06/11/16 at 06:00 Clonidine (Catapres) 0.2 mg Q6H PRN PO SBP above 160 Last administered on 10:22; Admin Dose 0.2 MG; Start 06/10/16 at 12:17 Hydralazine HCl (Apresoline) 10 mg Q4H PRN IV SBP >170 Last administered on 23:24; Admin Dose 10 MG; Start 06/10/16 at 15:00 Lorazepam (Ativan) 0.5 mg HS PO Last administered on 06/25/16 20:07; Admin Dose 0.5 MG; Start 06/11/16 at 22:00 Bethanechol Chloride (Urecholine) 25 mg TID PO Last administered on 06/26/16 13 :00; Admin Dose 25 MG; Start 06/13/16 at 13:00 Linagliptin (Tradjenta) 5 mg DAILY PO Last administered on 06/26/16 08:17; Admin Dose 5 MG; Start 06/16/16 at 09:00 Capsaicin (Theragen) 1 applic QID TOP Last administered on 06/26/16 14:44; Admin Dose 1 APPLIC; Start 06/15/16 at 21:00 Lidocaine (Lidocaine 5% Oint) 1 applic TID PRN TOP ITCHING/PAIN; Start at 15:30 Docusate Sodium (Colace) 100 mg BID PO Last administered on 06/26/16 08:17; Admin Dose 100 MG; Start 06/16/16 at 15:00 Bisacodyl (Dulcolax) 10 mg DAILY PRN PO CONSTIPATION Last administered on 20:44; Admin Dose 10 MG; Start 06/16/16 at 14:00 Guaifenesin/ Dextromethorphan (Robitussin Dm Liquid Cup) 10 ml Q4H PRN PO COUGH ; Start 06/17/16 at 17:30 Fluticasone Propionate (Flonase 0.05% Nasal) 1 spray BID NASAL Last administered on 06/26/16 12:28; Admin Dose 1 SPRAY; Start 06/19/16 at 09:00 Insulin Human NPH (Humulin N) 10 unit HS SC Last administered on 06/20/16 21: 04; Admin Dose 10 UNIT; Start 06/19/16 at 21:00; Status Future Hold Hydralazine HCl (Apresoline) 25 mg Q8 PO Last administered on 06/25/16 22:13; Admin Dose 25 MG; Start 06/20/16 at 14:00 Insulin Glargine (Lantus) 46 unit DAILY@20 SC Last administered on 06/25/16 22: 06; Admin Dose 46 UNIT; Start 06/21/16 at 20:00 Lisinopril (Zestril) 20 mg DAILY PO Last administered on 06/23/16 08:24; Admin Dose 20 MG; Start 06/22/16 at 09:00; Status Future Hold Atorvastatin Calcium (Lipitor) 40 mg HS PO Last administered on 06/25/16 20:07 ; Admin Dose 40 MG; Start 06/22/16 at 21:00 Nitroglycerin (Nitroglycerin 0.4 Mg/Hr) 1 patch DAILY TRANSDERM Last administered on 06/26/16 08:18; Admin Dose 1 PATCH; Start 06/22/16 at 11:30 Morphine Sulfate (morphine) 2 mg Q4H PRN IV pain Last administered on 06/25/16 01:58; Admin Dose 2 MG; Start 06/22/16 at 10:30 Methyldopa (Aldomet) 500 mg BID PO Last administered on 06/26/16 08:23; Admin Dose 500 MG; Start 06/26/16 at 09:00 Metolazone (Zaroxolyn) 2.5 mg DAILY PO Last administered on 06/26/16 11:11; Admin Dose 2.5 MG; Start 06/26/16 at 09:00 LOLI MCCARTNEY MD Jun 26, 2016 17:13
[2016-06-26] MEDS: PREGABALIN 75 MG CAP PO SCH (21:32)
[2016-06-26] MEDS: ATORVASTATIN 40 MG TAB PO SCH (21:33)
[2016-06-26] MEDS: LORAZEPAM 0.5 MG TAB PO SCH (21:41)
[2016-06-26] MEDS: INSULIN GLARGINE [LANtus] 3 ML PEN SC SCH (21:41)
[2016-06-27] VITALS (19 sets, daily range): BP systolic 115–160; BP diastolic 54–69; PULSE 68–86; RESP 17–22
[2016-06-27] MEDS: ALBUTEROL/IPRATROPIUM (NEB) 3 ML AMP HHN PRN (01:47)
[2016-06-27] MEDS: PANTOPRAZOLE (EC) 40 MG TAB PO SCH (05:48)
[2016-06-27] MEDS: BUMETANIDE 1 MG INJ IV SCH (05:48)
[2016-06-27] MEDS: INSULIN ASPART [NOVOLOG] 3 ML PEN SC SCH ×7 (07:55→21:17)
[2016-06-27] MEDS: ALBUTEROL/IPRATROPIUM (NEB) 3 ML AMP HHN SCH ×3 (08:08→20:20)
--- NOTE | 2016-06-27 08:54 | CONS ---
Date/Time of Note Date/Time of Note DATE: 06/27/16 TIME: 08:50 Consult Date/Type/Reason Admit Date/Time Jun 09, 2016 at 12:22 Initial Consult Date 06/15/16 Type of Consultation: nephrology Subjective all noted. has tachypneia s/p bumex drip with adequate uop. cards eval noted. cxr from yesterday reviewed. Objective Vital Signs Date Time Temp Pulse Resp B/P Pulse Ox O2 Delivery O2 Flow Rate FiO2 06/27/16 08:10 86 98 50 06/27/16 07:45 98.4 17 124/62 06/27/16 04:00 Nasal Cannula 4.0 Intake and Output 06/26/16 06/26/16 06/27/16 15:00 23:00 07:00 Intake Total 750 ml 240 ml Output Total 400 ml 800 ml Balance 350 ml -560 ml HEENT: Head is normocephalic. NECK: Supple. HEART: Regular rate. LUNGS: Show diminished breath sounds at the base. Positive crackles. ABDOMEN: Soft, nontender to palpation, obese. EXTREMITIES: Negative for clubbing, cyanosis. Positive edema. DERMATOLOGIC: No rashes. MUSCULOSKELETAL: No joint effusions. NEUROLOGIC: No change in exam. Results/Medications Result Diagram: 06/26/16 0700 06/26/16 0700 Results 24 hrs Laboratory Tests Test 06/26/16 11:27 06/26/16 17:10 06/26/16 21:28 06/27/16 08:29 Bedside Glucose 239 H 230 H 232 H 242 H Medications Current Medications Gabapentin (Neurontin) 600 mg TID PO Last administered on 06/26/16 21:33; Admin Dose 600 MG; Start 06/09/16 at 21:00 Miscellaneous Medication (Bystolic) 20 mg DAILY PO Last administered on 08:17; Admin Dose 20 MG; Start 06/10/16 at 09:00 Pregabalin (Lyrica) 150 mg QHS PO Last administered on 06/26/16 21:32; Admin Dose 150 MG; Start 06/09/16 at 21:00 Valacyclovir HCl (Valtrex) 1,000 mg BID PO Last administered on 06/26/16 21:32 ; Admin Dose 1,000 MG; Start 06/09/16 at 21:00 Miscellaneous Information 1 ea NOTE XX ; Start 06/09/16 at 18:30 Glucose (Glutose) 15 gm Q15M PRN PO DECREASED GLUCOSE; Start 06/09/16 at 18:30 Glucose (Glutose) 22.5 gm Q15M PRN PO DECREASED GLUCOSE; Start 06/09/16 at 18: 30 Dextrose (D50w Syringe) 25 ml Q15M PRN IV DECREASED GLUCOSE; Start 06/09/16 at 18:30 Dextrose (D50w Syringe) 50 ml Q15M PRN IV DECREASED GLUCOSE; Start 06/09/16 at 18:30 Glucagon (Glucagen) 1 mg Q15M PRN IM DECREASED GLUCOSE; Start 06/09/16 at 18:30 Glucose (Glutose) 15 gm Q15M PRN BUCCAL DECREASED GLUCOSE; Start 06/09/16 at 18 :30 Amlodipine Besylate (Norvasc) 10 mg DAILY PO Last administered on 06/26/16 08: 16; Admin Dose 10 MG; Start 06/09/16 at 20:30 Hydromorphone HCl (Dilaudid) 0.5 mg Q4H PRN IV PAIN Last administered on 01:54; Admin Dose 0.5 MG; Start 06/10/16 at 02:30 Pantoprazole (Protonix Tab) 40 mg DAILY@06 PO Last administered on 06/27/16 05: 48; Admin Dose 40 MG; Start 06/11/16 at 06:00 Clonidine (Catapres) 0.2 mg Q6H PRN PO SBP above 160 Last administered on 10:22; Admin Dose 0.2 MG; Start 06/10/16 at 12:17 Hydralazine HCl (Apresoline) 10 mg Q4H PRN IV SBP >170 Last administered on 23:24; Admin Dose 10 MG; Start 06/10/16 at 15:00 Lorazepam (Ativan) 0.5 mg HS PO Last administered on 06/26/16 21:41; Admin Dose 0.5 MG; Start 06/11/16 at 22:00 Bethanechol Chloride (Urecholine) 25 mg TID PO Last administered on 06/26/16 21 :42; Admin Dose 25 MG; Start 06/13/16 at 13:00 Linagliptin (Tradjenta) 5 mg DAILY PO Last administered on 06/26/16 08:17; Admin Dose 5 MG; Start 06/16/16 at 09:00 Capsaicin (Theragen) 1 applic QID TOP Last administered on 06/26/16 21:33; Admin Dose 1 APPLIC; Start 06/15/16 at 21:00 Lidocaine (Lidocaine 5% Oint) 1 applic TID PRN TOP ITCHING/PAIN; Start at 15:30 Docusate Sodium (Colace) 100 mg BID PO Last administered on 06/26/16 21:32; Admin Dose 100 MG; Start 06/16/16 at 15:00 Bisacodyl (Dulcolax) 10 mg DAILY PRN PO CONSTIPATION Last administered on 20:44; Admin Dose 10 MG; Start 06/16/16 at 14:00 Guaifenesin/ Dextromethorphan (Robitussin Dm Liquid Cup) 10 ml Q4H PRN PO COUGH ; Start 06/17/16 at 17:30 Fluticasone Propionate (Flonase 0.05% Nasal) 1 spray BID NASAL Last administered on 06/26/16 21:42; Admin Dose 1 SPRAY; Start 06/19/16 at 09:00 Insulin Human NPH (Humulin N) 10 unit HS SC Last administered on 06/20/16 21: 04; Admin Dose 10 UNIT; Start 06/19/16 at 21:00; Status Future Hold Hydralazine HCl (Apresoline) 25 mg Q8 PO Last administered on 06/27/16 05:49; Admin Dose 25 MG; Start 06/20/16 at 14:00 Insulin Glargine (Lantus) 46 unit DAILY@20 SC Last administered on 06/26/16 21: 41; Admin Dose 46 UNIT; Start 06/21/16 at 20:00 Lisinopril (Zestril) 20 mg DAILY PO Last administered on 06/23/16 08:24; Admin Dose 20 MG; Start 06/22/16 at 09:00; Status Future Hold Atorvastatin Calcium (Lipitor) 40 mg HS PO Last administered on 06/26/16 21:33 ; Admin Dose 40 MG; Start 06/22/16 at 21:00 Nitroglycerin (Nitroglycerin 0.4 Mg/Hr) 1 patch DAILY TRANSDERM Last administered on 06/26/16 08:18; Admin Dose 1 PATCH; Start 06/22/16 at 11:30 Morphine Sulfate (morphine) 2 mg Q4H PRN IV pain Last administered on 06/25/16 01:58; Admin Dose 2 MG; Start 06/22/16 at 10:30 Methyldopa (Aldomet) 500 mg BID PO Last administered on 06/26/16 21:32; Admin Dose 500 MG; Start 06/26/16 at 09:00 Metolazone (Zaroxolyn) 2.5 mg DAILY PO Last administered on 06/26/16 11:11; Admin Dose 2.5 MG; Start 06/26/16 at 09:00 Assessment/Plan Chief Complaint/Hosp Course 1. Acute hypoxemic respiratory failure,/ decompensated systolic/diastolic heart failure+ chronic obstructive pulmonary disease. -The patient has declined in the last 24 hours despite being placed on a Bumex drip overnight. - Recent chest x-ray does show worsening congestion. Plan is to intensify diuretic therapy. -s/p Bumex 2 mg IV b.i.d. with metolazone. -We will repeat a chest x-ray. We will also monitor strict I's and O's. -We will follow up with pulmonary and cardiology for further recommendations and monitor closely. 2. Nonoliguric acute kidney injury on top of chronic kidney disease, stage IV, with previous baseline creatinine around 2 mg/dL. Etiology of acute kidney injury is secondary to hemodynamics. Renal function has declined in the last 24 to 48 hours. Likely due to diuretic therapy. We will continue to monitor closely. -If the patient's renal function should further decline and the patient becomes nonresponsive to diuretic therapy, we would then consider starting renal replacement therapy. -Otherwise, continue supportive care, renally dose all meds, avoid nephrotoxins. 3. Acute decompensated systolic/diastolic heart failure. The patient has clinically declined in the last 24 hours. The patient continues to be short of breath. We will continue diuretic regimen as stated above. Follow up chest x- ray. Follow up with cardiology for further recommendations. 4. Right ovarian cystic mass concerning for neoplasm. The patient's surgery is currently on hold until she is clinically more stable. 5. Hypertension. Continue current blood pressure regimen. 6. Anemia. Continue to monitor hemoglobin and hematocrit levels. 7. Diabetes. Continue current insulin regimen. Follow up with endocrinology. 8. History of coronary artery disease. 9. Chronic kidney disease, stage IV, secondary to diabetes, hypertension. The patient is currently in acute kidney injury as stated above. Continue to monitor. 10. Morbid obesity. Continue dietary modification. 11. Sleep apnea. The patient has refused CPAP on supplemental oxygen. 12. Dyslipidemia. Continue statin therapy. 13. Neuropathy. Continue Lyrica. 14. Mild hyperkalemia, resolved. 15. Gastrointestinal and deep venous thrombosis prophylaxis. Continue proton pump inhibitor and sequential leg squeezers. Problems: SARAH BETH FOFANA MD Jun 27, 2016 08:54
[2016-06-27] MEDS: CAPSAICIN 0.025% 60 GM CR TOP SCH ×4 (09:29→22:27)
[2016-06-27] MEDS: VALACYCLOVIR 500 MG TAB PO SCH ×2 (09:29→20:55)
[2016-06-27] MEDS: FLUTICASONE 0.05% 16 GM NAS SPRAY NASAL SCH ×2 (09:29→20:58)
[2016-06-27] MEDS: METOLAZONE 2.5 MG TAB PO SCH (09:32)
[2016-06-27] MEDS: BETHANECHOL 25 MG TAB PO SCH ×3 (09:32→20:56)
[2016-06-27] MEDS: DOCUSATE SODIUM 100 MG CAP PO SCH ×2 (09:32→20:55)
[2016-06-27] MEDS: LINAGLIPTIN 5 MG TABLET PO SCH (09:33)
[2016-06-27] MEDS: METHYLDOPA 250 MG TAB PO SCH ×2 (09:33→20:55)
[2016-06-27] MEDS: GABAPENTIN 300 MG CAP PO SCH ×3 (09:33→20:55)
[2016-06-27] MEDS: AMLODIPINE 10 MG TAB PO SCH (09:33)
[2016-06-27] MEDS: NEBIVOLOL 5 MG TAB PO SCH (09:47)
[2016-06-27] MEDS: NITROGLYCERIN 0.4 MG/HR PATCH TRANSDERM SCH (09:47)
[2016-06-27] MEDS ORDERED: BUMETANIDE 25 MG in DEXTROSE 5% 150 ML IV SCH (12:00)
[2016-06-27 12:28] LABS: ADD SCAN DIFF NO
[2016-06-27 12:40] LABS: BASOPHILS % 0.3 % (0.0-2.0); EOSINOPHILS # 0.1 10^3/ul (0.0-0.5); EOSINOPHILS % 1.4 % (0.0-7.0); HEMOGLOBIN 8.7 g/dl (12.0-16.0); LYMPHOCYTES # 1.2 10^3/ul (0.8-2.9); MEAN CORPUSCULAR HEMOGLOBIN 31.4 pg (29.0-33.0); MEAN CORPUSCULAR VOLUME 104.7 fl (82.0-101.0); MEAN PLATELET VOLUME 11.1 fl (7.4-10.4); MONOCYTE # 0.5 10^3/ul (0.3-0.9); NEUTROPHIL # 4.6 10^3/ul (1.6-7.5); NEUTROPHILS % 70.2 % (39.0-77.0); PLATELET COUNT 234 10^3/UL (140-415); RED BLOOD COUNT 2.77 10^6/ul (4.20-5.40); RED CELL DISTRIBUTION WIDTH 15.7 % (11.5-14.5); WHITE BLOOD COUNT 6.5 10^3/ul (4.8-10.8)
[2016-06-27 12:42] LABS: POTASSIUM 4.1 mmol/L (3.5-5.1)
[2016-06-27 12:45] LABS: CREATININE 2.38 mg/dl (0.44-1.00); PHOSPHORUS 5.8 mg/dl (2.5-4.9)
[2016-06-27 12:46] LABS: MAGNESIUM 1.9 mg/dl (1.7-2.5)
[2016-06-27] MEDS ORDERED: DEXTROSE 5% IV ONE (13:00)
[2016-06-27] MEDS ORDERED: BUMETANIDE IV ONE (13:00)
--- NOTE | 2016-06-27 15:22 | CONS ---
Date/Time of Note Date/Time of Note DATE: 06/27/16 TIME: 15:19 Consult Date/Type/Reason Admit Date/Time Jun 09, 2016 at 12:22 Initial Consult Date 06/15/16 Type of Consultation: Pulm Subjective Difficult night and early am. Refusing BiPAP. Now on bumex gtt. SpO2 91% on 5 L NC Objective Vital Signs Date Time Temp Pulse Resp B/P Pulse Ox O2 Delivery O2 Flow Rate FiO2 06/27/16 15:07 4.0 06/27/16 15:01 98.1 79 19 132/69 92 06/27/16 13:37 35 06/27/16 08:00 Nasal Cannula Intake and Output 06/26/16 06/26/16 06/27/16 15:00 23:00 07:00 Intake Total 750 ml 240 ml Output Total 400 ml 800 ml Balance 350 ml -560 ml HEENT: Neck supple; no JVD; no LAD CVS: RRR, S1 and S2 CHEST: decreased BS and rales at bases ABD: Soft, NT, + BS EXT: No c/c/ ++ edema Results/Medications Result Diagram: 06/27/16 1203 06/27/16 1203 Results 24 hrs Laboratory Tests Test 06/26/16 17:10 06/26/16 21:28 06/27/16 08:29 06/27/16 12:03 Bedside Glucose 230 H 232 H 242 H Anion Gap 17 H Basophils # 0.0 Basophils % 0.3 Blood Urea Nitrogen 52 H Calcium Level 9.0 Carbon Dioxide Level 25 Chloride Level 105 Creatinine 2.38 H Eosinophils # 0.1 Eosinophils % 1.4 Glucose Level 276 H Hematocrit 29.0 L Hemoglobin 8.7 L Lymphocytes # 1.2 Lymphocytes % 19.0 Magnesium Level 1.9 Mean Corpuscular Hemoglobin 31.4 Mean Corpuscular Hemoglobin Concent 30.0 L Mean Corpuscular Volume 104.7 H Mean Platelet Volume 11.1 H Monocytes # 0.5 Monocytes % 8.0 Neutrophils # 4.6 Neutrophils % 70.2 Nucleated Red Blood Cells # 0.0 Nucleated Red Blood Cells % 0.0 Phosphorus Level 5.8 H Platelet Count 234 Potassium Level 4.1 Red Blood Count 2.77 L Red Cell Distribution Width 15.7 H Sodium Level 143 White Blood Count 6.5 Test 06/27/16 12:45 Bedside Glucose 294 H Medications Current Medications Gabapentin (Neurontin) 600 mg TID PO Last administered on 06/27/16 14:34; Admin Dose 600 MG; Start 06/09/16 at 21:00 Miscellaneous Medication (Bystolic) 20 mg DAILY PO Last administered on 09:47; Admin Dose 20 MG; Start 06/10/16 at 09:00 Pregabalin (Lyrica) 150 mg QHS PO Last administered on 06/26/16 21:32; Admin Dose 150 MG; Start 06/09/16 at 21:00 Valacyclovir HCl (Valtrex) 1,000 mg BID PO Last administered on 06/27/16 09:29 ; Admin Dose 1,000 MG; Start 06/09/16 at 21:00 Miscellaneous Information 1 ea NOTE XX ; Start 06/09/16 at 18:30 Glucose (Glutose) 15 gm Q15M PRN PO DECREASED GLUCOSE; Start 06/09/16 at 18:30 Glucose (Glutose) 22.5 gm Q15M PRN PO DECREASED GLUCOSE; Start 06/09/16 at 18: 30 Dextrose (D50w Syringe) 25 ml Q15M PRN IV DECREASED GLUCOSE; Start 06/09/16 at 18:30 Dextrose (D50w Syringe) 50 ml Q15M PRN IV DECREASED GLUCOSE; Start 06/09/16 at 18:30 Glucagon (Glucagen) 1 mg Q15M PRN IM DECREASED GLUCOSE; Start 06/09/16 at 18:30 Glucose (Glutose) 15 gm Q15M PRN BUCCAL DECREASED GLUCOSE; Start 06/09/16 at 18 :30 Amlodipine Besylate (Norvasc) 10 mg DAILY PO Last administered on 06/27/16 09: 33; Admin Dose 10 MG; Start 06/09/16 at 20:30 Hydromorphone HCl (Dilaudid) 0.5 mg Q4H PRN IV PAIN Last administered on 01:54; Admin Dose 0.5 MG; Start 06/10/16 at 02:30 Pantoprazole (Protonix Tab) 40 mg DAILY@06 PO Last administered on 06/27/16 05: 48; Admin Dose 40 MG; Start 06/11/16 at 06:00 Clonidine (Catapres) 0.2 mg Q6H PRN PO SBP above 160 Last administered on 10:22; Admin Dose 0.2 MG; Start 06/10/16 at 12:17 Hydralazine HCl (Apresoline) 10 mg Q4H PRN IV SBP >170 Last administered on 23:24; Admin Dose 10 MG; Start 06/10/16 at 15:00 Lorazepam (Ativan) 0.5 mg HS PO Last administered on 06/26/16 21:41; Admin Dose 0.5 MG; Start 06/11/16 at 22:00 Bethanechol Chloride (Urecholine) 25 mg TID PO Last administered on 06/27/16 14 :34; Admin Dose 25 MG; Start 06/13/16 at 13:00 Linagliptin (Tradjenta) 5 mg DAILY PO Last administered on 06/27/16 09:33; Admin Dose 5 MG; Start 06/16/16 at 09:00 Capsaicin (Theragen) 1 applic QID TOP Last administered on 06/27/16 14:34; Admin Dose 1 APPLIC; Start 06/15/16 at 21:00 Lidocaine (Lidocaine 5% Oint) 1 applic TID PRN TOP ITCHING/PAIN; Start at 15:30 Docusate Sodium (Colace) 100 mg BID PO Last administered on 06/27/16 09:32; Admin Dose 100 MG; Start 06/16/16 at 15:00 Bisacodyl (Dulcolax) 10 mg DAILY PRN PO CONSTIPATION Last administered on 20:44; Admin Dose 10 MG; Start 06/16/16 at 14:00 Guaifenesin/ Dextromethorphan (Robitussin Dm Liquid Cup) 10 ml Q4H PRN PO COUGH ; Start 06/17/16 at 17:30 Fluticasone Propionate (Flonase 0.05% Nasal) 1 spray BID NASAL Last administered on 06/27/16 09:29; Admin Dose 1 SPRAY; Start 06/19/16 at 09:00 Insulin Human NPH (Humulin N) 10 unit HS SC Last administered on 06/20/16 21: 04; Admin Dose 10 UNIT; Start 06/19/16 at 21:00; Status Future Hold Hydralazine HCl (Apresoline) 25 mg Q8 PO Last administered on 06/27/16 14:34; Admin Dose 25 MG; Start 06/20/16 at 14:00 Insulin Glargine (Lantus) 46 unit DAILY@20 SC Last administered on 06/26/16 21: 41; Admin Dose 46 UNIT; Start 06/21/16 at 20:00 Lisinopril (Zestril) 20 mg DAILY PO Last administered on 06/23/16 08:24; Admin Dose 20 MG; Start 06/22/16 at 09:00; Status Future Hold Atorvastatin Calcium (Lipitor) 40 mg HS PO Last administered on 06/26/16 21:33 ; Admin Dose 40 MG; Start 06/22/16 at 21:00 Nitroglycerin (Nitroglycerin 0.4 Mg/Hr) 1 patch DAILY TRANSDERM Last administered on 06/27/16 09:47; Admin Dose 1 PATCH; Start 06/22/16 at 11:30 Morphine Sulfate (morphine) 2 mg Q4H PRN IV pain Last administered on 06/25/16 01:58; Admin Dose 2 MG; Start 06/22/16 at 10:30 Methyldopa (Aldomet) 500 mg BID PO Last administered on 06/27/16 09:33; Admin Dose 500 MG; Start 06/26/16 at 09:00 Metolazone 2.5 mg 2.5 mg DAILY PO Last administered on 06/27/16 09:32; Admin Dose 2.5 MG; Start 06/26/16 at 09:00 Bumetanide/ Dextrose/Water (Bumex/D5W) 120 ml @ 10 mls/hr Q12H ONCE IV Last administered on 06/27/16 14:08; Admin Dose 10 MLS/HR; Start 06/27/16 at 13:00; Stop 06/28/16 at 00:59 Assessment/Plan Additional Assessment/Plan IMP: 1. Hypoxemic resp insufficiency--volume overload 2. Ovarian mass 3. Renal insufficiency. 5. CHF. 6. Diabetes. 7. Hypertension. 8. Severe COPD, O2 dependent RECS: 1. Continue bumex gtt 2. Flynn cath 3. Follow I/O's 4. Am labs/CXR/ABG TERESE KAYE MD Jun 27, 2016 15:22
[2016-06-27] MEDS ORDERED: METHYLPREDNISOLONE 125 MG INJ IV ONE (19:00)
[2016-06-27] MEDS: PREGABALIN 75 MG CAP PO SCH (20:56)
[2016-06-27] MEDS: LORAZEPAM 0.5 MG TAB PO SCH ×2 (20:56→21:00)
[2016-06-27] MEDS: ATORVASTATIN 40 MG TAB PO SCH (20:56)
[2016-06-27] MEDS: INSULIN GLARGINE [LANtus] 3 ML PEN SC SCH (21:09)
--- NOTE | 2016-06-27 22:43 | CONS ---
Date/Time of Note Date/Time of Note DATE: 06/27/16 TIME: 22:41 Assessment/Plan Assessment/Plan Chief Complaint/Hosp Course 1. A right ovarian cystic mass. Etiology is unclear, concerning for possible malignancy. PT IS DECLINING SURGERY AT PRESENT 2. Anemia. Continue to monitor hemoglobin and hematocrit levels. + component ACD OBSERVE FOR BLEEDING AND HEMOLYSIS SERVIN / NUMBNESS LUE- RESOLVED CT HEAD- NEG 3. Nonoliguric acute kidney injury on top of chronic kidney disease with a previous baseline renal function around 1.5 to 2 mg/dL. Etiology of acute kidney injury is possibly secondary to urinary retention, obstructive uropathy versus hemodynamics, possible cardiorenal syndrome. The patient's urinalysis shows findings of proteinuria but no pyuria, no hematuria, and a CT scan of the abdomen and pelvis showed no evidence of hydronephrosis. Plan at this point is to check a renal ultrasound. Will repeat UA with microanalysis. Will check urine electrolytes. Will continue supportive care, renally dose medications, avoid nephrotoxins, monitor renal function closely. Clinical albuminuria - PER NEPHROLOGY 4 Urinary retention. Underlying etiology is unclear. The patient is status post Flynn catheter placement with good urinary output. Seen by urology still unable to urinate on intermittent catheterizations URECHOLINE - DOSE INCREASED 5. Acute decompensated diastolic heart failure. The patient noted to have pulmonary congestion, lower extremity edema. The patient is status post Lasix; will continue- PER NEPHRO cardiology F-UP PT IS IV BUMEX AROUND THE CLOCK 6. History of coronary artery disease, status post coronary artery bypass graft. Continue current medical management. 7. Diabetes. Will continue Accu-Cheks, insulin sliding scale, continue Lantus. HB A1C- 8.1 8. Chronic kidney disease stage IIIB/IV. Etiology is multifactorial secondary to diabetes, hypertension. The patient is currently in acute kidney injury as stated above. Continue medical management. 9. Morbid obesity. Continue dietary modification. 10. Dyslipidemia. Continue statin therapy. 11. Obstructive sleep apnea. Continue supplemental oxygen. Consider a pulmonary consult for evaluation. 12. Hypertension- POORLY CONTROLLED Continue current blood pressure regimen. Will adjust medications as needed. CARDIOLOGY F-UP 13. History of peripheral vascular disease. Continue current medical management. 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 SEVERE DJD/OA WITH CHRONIC PAIN 16. GI PROBLEMS- WITH ABD PAIN, DIARRHEA/ ALTERNATING WITH CONSTIPATION GI F-UP Problems: Consultation Date/Type/Reason Admit Date/Time Jun 09, 2016 at 12:22 Initial Consult Date 06/09/16 Type of Consultation: HEMEONC 24 HR Interval Summary Free Text/Dictation all noted. CONDITION WORSENING +SOB has tachypneia s/p bumex drip with adequate uop. cards eval noted. cxr from yesterday reviewed. Exam/Review of Systems Vital Signs Vitals Vital Signs Date Time Temp Pulse Resp B/P Pulse Ox O2 Delivery O2 Flow Rate FiO2 06/27/16 20:29 74 06/27/16 20:21 24 91 Nasal Cannula 4.0 06/27/16 19:51 98.8 145/67 06/27/16 17:26 35 Intake and Output 06/26/16 06/26/16 06/27/16 15:00 23:00 07:00 Intake Total 750 ml 240 ml Output Total 400 ml 800 ml Balance 350 ml -560 ml Exam HEENT: Head is normocephalic. NECK: Supple. HEART: Regular rate. LUNGS: Show diminished breath sounds at the base. Positive crackles. ABDOMEN: Soft, nontender to palpation, obese. EXTREMITIES: Negative for clubbing, cyanosis. Positive edema. DERMATOLOGIC: No rashes. MUSCULOSKELETAL: No joint effusions. NEUROLOGIC: No change in exam. Results Result Diagram: 06/27/16 1203 06/27/16 1203 Results 24 hrs Laboratory Tests Test 06/27/16 08:29 06/27/16 12:03 06/27/16 12:45 06/27/16 17:05 Bedside Glucose 242 H 294 H 181 Anion Gap 17 H Basophils # 0.0 Basophils % 0.3 Blood Urea Nitrogen 52 H Calcium Level 9.0 Carbon Dioxide Level 25 Chloride Level 105 Creatinine 2.38 H Eosinophils # 0.1 Eosinophils % 1.4 Glucose Level 276 H Hematocrit 29.0 L Hemoglobin 8.7 L Lymphocytes # 1.2 Lymphocytes % 19.0 Magnesium Level 1.9 Mean Corpuscular Hemoglobin 31.4 Mean Corpuscular Hemoglobin Concent 30.0 L Mean Corpuscular Volume 104.7 H Mean Platelet Volume 11.1 H Monocytes # 0.5 Monocytes % 8.0 Neutrophils # 4.6 Neutrophils % 70.2 Nucleated Red Blood Cells # 0.0 Nucleated Red Blood Cells % 0.0 Phosphorus Level 5.8 H Platelet Count 234 Potassium Level 4.1 Red Blood Count 2.77 L Red Cell Distribution Width 15.7 H Sodium Level 143 White Blood Count 6.5 Test 06/27/16 21:05 Bedside Glucose 276 H Medications Medications Current Medications Gabapentin (Neurontin) 600 mg TID PO Last administered on 06/27/16 20:55; Admin Dose 600 MG; Start 06/09/16 at 21:00 Miscellaneous Medication (Bystolic) 20 mg DAILY PO Last administered on 09:47; Admin Dose 20 MG; Start 06/10/16 at 09:00 Pregabalin (Lyrica) 150 mg QHS PO Last administered on 06/27/16 20:56; Admin Dose 150 MG; Start 06/09/16 at 21:00 Valacyclovir HCl (Valtrex) 1,000 mg BID PO Last administered on 06/27/16 20:55 ; Admin Dose 1,000 MG; Start 06/09/16 at 21:00 Miscellaneous Information 1 ea NOTE XX ; Start 06/09/16 at 18:30 Glucose (Glutose) 15 gm Q15M PRN PO DECREASED GLUCOSE; Start 06/09/16 at 18:30 Glucose (Glutose) 22.5 gm Q15M PRN PO DECREASED GLUCOSE; Start 06/09/16 at 18: 30 Dextrose (D50w Syringe) 25 ml Q15M PRN IV DECREASED GLUCOSE; Start 06/09/16 at 18:30 Dextrose (D50w Syringe) 50 ml Q15M PRN IV DECREASED GLUCOSE; Start 06/09/16 at 18:30 Glucagon (Glucagen) 1 mg Q15M PRN IM DECREASED GLUCOSE; Start 06/09/16 at 18:30 Glucose (Glutose) 15 gm Q15M PRN BUCCAL DECREASED GLUCOSE; Start 06/09/16 at 18 :30 Amlodipine Besylate (Norvasc) 10 mg DAILY PO Last administered on 06/27/16 09: 33; Admin Dose 10 MG; Start 06/09/16 at 20:30 Hydromorphone HCl (Dilaudid) 0.5 mg Q4H PRN IV PAIN Last administered on 01:54; Admin Dose 0.5 MG; Start 06/10/16 at 02:30 Pantoprazole (Protonix Tab) 40 mg DAILY@06 PO Last administered on 06/27/16 05: 48; Admin Dose 40 MG; Start 06/11/16 at 06:00 Clonidine (Catapres) 0.2 mg Q6H PRN PO SBP above 160 Last administered on 10:22; Admin Dose 0.2 MG; Start 06/10/16 at 12:17 Hydralazine HCl (Apresoline) 10 mg Q4H PRN IV SBP >170 Last administered on 23:24; Admin Dose 10 MG; Start 06/10/16 at 15:00 Lorazepam (Ativan) 0.5 mg HS PO Last administered on 06/26/16 21:41; Admin Dose 0.5 MG; Start 06/11/16 at 22:00 Bethanechol Chloride (Urecholine) 25 mg TID PO Last administered on 06/27/16 20 :56; Admin Dose 25 MG; Start 06/13/16 at 13:00 Linagliptin (Tradjenta) 5 mg DAILY PO Last administered on 06/27/16 09:33; Admin Dose 5 MG; Start 06/16/16 at 09:00 Capsaicin (Theragen) 1 applic QID TOP Last administered on 06/27/16 22:27; Admin Dose 1 APPLIC; Start 06/15/16 at 21:00 Lidocaine (Lidocaine 5% Oint) 1 applic TID PRN TOP ITCHING/PAIN; Start at 15:30 Docusate Sodium (Colace) 100 mg BID PO Last administered on 06/27/16 20:55; Admin Dose 100 MG; Start 06/16/16 at 15:00 Bisacodyl (Dulcolax) 10 mg DAILY PRN PO CONSTIPATION Last administered on 20:44; Admin Dose 10 MG; Start 06/16/16 at 14:00 Guaifenesin/ Dextromethorphan (Robitussin Dm Liquid Cup) 10 ml Q4H PRN PO COUGH ; Start 06/17/16 at 17:30 Fluticasone Propionate (Flonase 0.05% Nasal) 1 spray BID NASAL Last administered on 06/27/16 20:58; Admin Dose 1 SPRAY; Start 06/19/16 at 09:00 Insulin Human NPH (Humulin N) 10 unit HS SC Last administered on 06/20/16 21: 04; Admin Dose 10 UNIT; Start 06/19/16 at 21:00; Status Future Hold Hydralazine HCl (Apresoline) 25 mg Q8 PO Last administered on 06/27/16 22:26; Admin Dose 25 MG; Start 06/20/16 at 14:00 Insulin Glargine (Lantus) 46 unit DAILY@20 SC Last administered on 06/27/16 21: 09; Admin Dose 46 UNIT; Start 06/21/16 at 20:00 Lisinopril (Zestril) 20 mg DAILY PO Last administered on 06/23/16 08:24; Admin Dose 20 MG; Start 06/22/16 at 09:00; Status Future Hold Atorvastatin Calcium (Lipitor) 40 mg HS PO Last administered on 06/27/16 20:56 ; Admin Dose 40 MG; Start 06/22/16 at 21:00 Nitroglycerin (Nitroglycerin 0.4 Mg/Hr) 1 patch DAILY TRANSDERM Last administered on 06/27/16 09:47; Admin Dose 1 PATCH; Start 06/22/16 at 11:30 Morphine Sulfate (morphine) 2 mg Q4H PRN IV pain Last administered on 06/25/16 01:58; Admin Dose 2 MG; Start 06/22/16 at 10:30 Methyldopa (Aldomet) 500 mg BID PO Last administered on 06/27/16 20:55; Admin Dose 500 MG; Start 06/26/16 at 09:00 Metolazone 2.5 mg 2.5 mg DAILY PO Last administered on 06/27/16 09:32; Admin Dose 2.5 MG; Start 06/26/16 at 09:00 Bumetanide/ Dextrose/Water (Bumex/D5W) 120 ml @ 10 mls/hr Q12H ONCE IV Last administered on 06/27/16 14:08; Admin Dose 10 MLS/HR; Start 06/27/16 at 13:00; Stop 06/28/16 at 00:59 SHARLA SOUSA MD Jun 27, 2016 22:43
[2016-06-28] VITALS (12 sets, daily range): BP systolic 120–136; BP diastolic 57–63; PULSE 68–84; RESP 18–22
[2016-06-28 05:11] LABS: AADO2 Arterial 134.9 mmHg (7.0-24.0); Allen Test ACCEPTAB; Arterial Base Excess -2.9 mmol/L (-3.0-3); Arterial COHb 0.1 % (0.0-3.0); Arterial Fraction of Oxyhgb 92.1 % (93.0-99.0); Arterial HCO3 22.9 mmol/L (22.0-26.0); Arterial MetHb 0.2 % (0.0-1.5); Arterial Total Hemglobin 11.1 g/dl (12.0-18.0); MODE NASAL CANNULA
[2016-06-28] MEDS: PANTOPRAZOLE (EC) 40 MG TAB PO SCH (05:32)
[2016-06-28 06:07] LABS: ADD SCAN DIFF NO
[2016-06-28 06:17] LABS: ABNORMAL IP MESSAGE 1; BASOPHILS % 0.1 % (0.0-2.0); HEMATOCRIT 30.7 % (37.0-47.0); HEMOGLOBIN 9.4 g/dl (12.0-16.0); LYMPHOCYTES # 0.5 10^3/ul (0.8-2.9); LYMPHOCYTES % 7.1 % (15.0-51.0); MEAN CORPUSCULAR HEMOGLOBIN 31.4 pg (29.0-33.0); MEAN CORPUSCULAR HGB CONC 30.6 g/dl (32.0-37.0); MEAN CORPUSCULAR VOLUME 102.7 fl (82.0-101.0); MEAN PLATELET VOLUME 11.5 fl (7.4-10.4); MONOCYTE # 0.1 10^3/ul (0.3-0.9); NEUTROPHIL # 6.2 10^3/ul (1.6-7.5); NEUTROPHILS % 90.4 % (39.0-77.0); PLATELET COUNT 254 10^3/UL (140-415); RED BLOOD COUNT 2.99 10^6/ul (4.20-5.40); RED CELL DISTRIBUTION WIDTH 15.4 % (11.5-14.5); WHITE BLOOD COUNT 6.9 10^3/ul (4.8-10.8)
[2016-06-28 06:31] LABS: POTASSIUM 5.1 mmol/L (3.5-5.1)
[2016-06-28 06:33] LABS: CREATININE 2.44 mg/dl (0.44-1.00)
[2016-06-28 06:35] LABS: CALCIUM 8.5 mg/dl (8.4-10.2); MAGNESIUM 1.8 mg/dl (1.7-2.5); PHOSPHORUS 4.8 mg/dl (2.5-4.9)
[2016-06-28] MEDS: ALBUTEROL/IPRATROPIUM (NEB) 3 ML AMP HHN SCH ×3 (07:41→19:44)
[2016-06-28] MEDS ORDERED: BUMETANIDE 25 MG in DEXTROSE 5% 150 ML IV SCH (08:00)
[2016-06-28 08:56] LABS: MAGNESIUM 1.9 mg/dl (1.7-2.5); PHOSPHORUS 4.8 mg/dl (2.5-4.9)
[2016-06-28] MEDS ORDERED: BUMETANIDE 12 MG in DEXTROSE 5% 72 ML IV SCH (09:00)
[2016-06-28] MEDS: DOCUSATE SODIUM 100 MG CAP PO SCH ×3 (09:00→20:53)
[2016-06-28] MEDS: NEBIVOLOL 5 MG TAB PO SCH (09:55)
[2016-06-28] MEDS: GABAPENTIN 300 MG CAP PO SCH ×3 (09:57→20:45)
[2016-06-28] MEDS: VALACYCLOVIR 500 MG TAB PO SCH ×2 (09:57→20:45)
[2016-06-28] MEDS: BETHANECHOL 25 MG TAB PO SCH ×3 (09:58→20:45)
[2016-06-28] MEDS: METOLAZONE 2.5 MG TAB PO SCH (09:59)
[2016-06-28] MEDS: AMLODIPINE 10 MG TAB PO SCH (09:59)
[2016-06-28] MEDS: LINAGLIPTIN 5 MG TABLET PO SCH (10:00)
[2016-06-28] MEDS: METHYLDOPA 250 MG TAB PO SCH ×2 (10:01→20:48)
[2016-06-28] MEDS: CAPSAICIN 0.025% 60 GM CR TOP SCH ×4 (10:02→20:44)
[2016-06-28] MEDS: FLUTICASONE 0.05% 16 GM NAS SPRAY NASAL SCH ×2 (10:02→20:44)
--- NOTE | 2016-06-28 10:02 | RADRPT ---
PROCEDURE: XR Chest. CLINICAL INDICATION: Shortness of breath. TECHNIQUE: Single frontal view. COMPARISON: 06/26/2016. FINDINGS: There is mild air space disease at the lung bases, improved. Pulmonary edema is improved. The heart is enlarged. There are sternal wires and mediastinal clips. Calcification is present in the aorta consistent with atherosclerosis. There are small bilateral pleural effusions. There is no pneumothorax. IMPRESSION: 1. Improved pulmonary edema and bibasilar atelectasis. 2. Cardiomegaly and atherosclerosis. 3. Previous median sternotomy. 4. Small bilateral pleural effusions. RPTAT: QQ .Ethan Villanueva MD, MD Date Time Electronically viewed and signed by .Ethan Villanueva MD, MD on 06/28/2016 10:02 .R/
[2016-06-28] MEDS: NITROGLYCERIN 0.4 MG/HR PATCH TRANSDERM SCH (10:03)
[2016-06-28] MEDS: INSULIN ASPART [NOVOLOG] 3 ML PEN SC SCH ×7 (10:12→20:15)
--- NOTE | 2016-06-28 10:13 | CONS ---
Date/Time of Note Date/Time of Note DATE: 06/28/16 TIME: 10:12 Consult Date/Type/Reason Admit Date/Time Jun 09, 2016 at 12:22 Initial Consult Date 06/15/16 Type of Consultation: nephro Subjective good uop. no new events refusing surgery spoke to endo pt. doing her own insulin. pe: HEENT: Head is normocephalic. NECK: Supple. HEART: Regular rate. LUNGS: Show diminished breath sounds at the base. Positive crackles. ABDOMEN: Soft, nontender to palpation, obese. EXTREMITIES: Negative for clubbing, cyanosis. Positive edema. DERMATOLOGIC: No rashes. MUSCULOSKELETAL: No joint effusions. NEUROLOGIC: No change in exam. Objective Vital Signs Date Time Temp Pulse Resp B/P Pulse Ox O2 Delivery O2 Flow Rate FiO2 06/28/16 08:10 68 06/28/16 08:00 Nasal Cannula 5.0 06/28/16 07:42 24 89 06/28/16 07:25 98.5 135/60 06/28/16 01:38 35 Intake and Output 06/27/16 06/27/16 06/28/16 15:00 23:00 07:00 Intake Total 300 ml 650 ml 200 ml Output Total 200 ml 1500 ml 2000 ml Balance 100 ml -850 ml -1800 ml Results/Medications Result Diagram: 06/28/16 0555 06/28/16 0546 Results 24 hrs Laboratory Tests Test 06/27/16 12:03 06/27/16 12:45 06/27/16 17:05 06/27/16 21:05 Anion Gap 17 H Basophils # 0.0 Basophils % 0.3 Blood Urea Nitrogen 52 H Calcium Level 9.0 Carbon Dioxide Level 25 Chloride Level 105 Creatinine 2.38 H Eosinophils # 0.1 Eosinophils % 1.4 Glucose Level 276 H Hematocrit 29.0 L Hemoglobin 8.7 L Lymphocytes # 1.2 Lymphocytes % 19.0 Magnesium Level 1.9 Mean Corpuscular Hemoglobin 31.4 Mean Corpuscular Hemoglobin Concent 30.0 L Mean Corpuscular Volume 104.7 H Mean Platelet Volume 11.1 H Monocytes # 0.5 Monocytes % 8.0 Neutrophils # 4.6 Neutrophils % 70.2 Nucleated Red Blood Cells # 0.0 Nucleated Red Blood Cells % 0.0 Phosphorus Level 5.8 H Platelet Count 234 Potassium Level 4.1 Red Blood Count 2.77 L Red Cell Distribution Width 15.7 H Sodium Level 143 White Blood Count 6.5 Bedside Glucose 294 H 181 276 H Test 06/28/16 01:16 06/28/16 05:00 06/28/16 05:46 06/28/16 05:55 Bedside Glucose 350 H Arterial Blood HCO3 22.9 Arterial Blood Base Excess -2.9 Arterial Blood Oxygen Saturation 92.4 L Jasmeet Test ACCEPTAB Arterial Blood Gas Puncture Site Right Radial Arterial Blood Carboxyhemoglobin 0.1 Arterial Blood Date Drawn 06/28/2016 5:00:06 AM Arterial Blood Methemoglobin 0.2 Arterial Blood pCO2 (Temp correct) 44.0 Arterial Blood pH (Temp corrected) 7.335 L Arterial Blood pO2 (Temp corrected) 70.7 L Blood Gas A-a O2 Differential 134.9 H Blood Gas Modality NASAL CANNULA Blood Gas Notified Time 06/28/2016 5:10:47 AM Blood Gas Notified Whom JMD Blood Gas Specimen Source Blood arterial Blood Gas Temperature 37.0 FiO2 36.0 Oxyhemoglobin Percent 92.1 L Total Hemoglobin 11.1 L Anion Gap 19 H Blood Urea Nitrogen 59 H Calcium Level 8.5 Carbon Dioxide Level 25 Chloride Level 101 Creatinine 2.44 H Glucose Level 375 H Magnesium Level 1.8 Phosphorus Level 4.8 Potassium Level 5.1 Sodium Level 140 Basophils # 0.0 Basophils % 0.1 Eosinophils # 0.0 Eosinophils % 0.0 Hematocrit 30.7 L Hemoglobin 9.4 L Lymphocytes # 0.5 L Lymphocytes % 7.1 L Mean Corpuscular Hemoglobin 31.4 Mean Corpuscular Hemoglobin Concent 30.6 L Mean Corpuscular Volume 102.7 H Mean Platelet Volume 11.5 H Monocytes # 0.1 L Monocytes % 1.0 Neutrophils # 6.2 Neutrophils % 90.4 H Nucleated Red Blood Cells # 0.0 Nucleated Red Blood Cells % 0.0 Platelet Count 254 Red Blood Count 2.99 L Red Cell Distribution Width 15.4 H White Blood Count 6.9 Test 06/28/16 05:56 06/28/16 08:13 Magnesium Level 1.9 Phosphorus Level 4.8 Bedside Glucose 312 H Medications Current Medications Gabapentin (Neurontin) 600 mg TID PO Last administered on 06/28/16t 09:57; Admin Dose 600 MG; Start 06/09/16 at 21:00 Miscellaneous Medication (Bystolic) 20 mg DAILY PO Last administered on 09:55; Admin Dose 20 MG; Start 06/10/16 at 09:00 Pregabalin (Lyrica) 150 mg QHS PO Last administered on 06/27/16 20:56; Admin Dose 150 MG; Start 06/09/16 at 21:00 Valacyclovir HCl (Valtrex) 1,000 mg BID PO Last administered on 06/28/16 09:57 ; Admin Dose 1,000 MG; Start 06/09/16 at 21:00 Miscellaneous Information 1 ea NOTE XX ; Start 06/09/16 at 18:30 Glucose (Glutose) 15 gm Q15M PRN PO DECREASED GLUCOSE; Start 06/09/16 at 18:30 Glucose (Glutose) 22.5 gm Q15M PRN PO DECREASED GLUCOSE; Start 06/09/16 at 18: 30 Dextrose (D50w Syringe) 25 ml Q15M PRN IV DECREASED GLUCOSE; Start 06/09/16 at 18:30 Dextrose (D50w Syringe) 50 ml Q15M PRN IV DECREASED GLUCOSE; Start 06/09/16 at 18:30 Glucagon (Glucagen) 1 mg Q15M PRN IM DECREASED GLUCOSE; Start 06/09/16 at 18:30 Glucose (Glutose) 15 gm Q15M PRN BUCCAL DECREASED GLUCOSE; Start 06/09/16 at 18 :30 Amlodipine Besylate (Norvasc) 10 mg DAILY PO Last administered on 06/28/16 09: 59; Admin Dose 10 MG; Start 06/09/16 at 20:30 Hydromorphone HCl (Dilaudid) 0.5 mg Q4H PRN IV PAIN Last administered on 01:54; Admin Dose 0.5 MG; Start 06/10/16 at 02:30 Pantoprazole (Protonix Tab) 40 mg DAILY@06 PO Last administered on 06/28/16 05: 32; Admin Dose 40 MG; Start 06/11/16 at 06:00 Clonidine (Catapres) 0.2 mg Q6H PRN PO SBP above 160 Last administered on 10:22; Admin Dose 0.2 MG; Start 06/10/16 at 12:17 Hydralazine HCl (Apresoline) 10 mg Q4H PRN IV SBP >170 Last administered on 23:24; Admin Dose 10 MG; Start 06/10/16 at 15:00 Lorazepam (Ativan) 0.5 mg HS PO Last administered on 06/26/16 21:41; Admin Dose 0.5 MG; Start 06/11/16 at 22:00 Bethanechol Chloride (Urecholine) 25 mg TID PO Last administered on 06/28/16 09 :58; Admin Dose 25 MG; Start 06/13/16 at 13:00 Linagliptin (Tradjenta) 5 mg DAILY PO Last administered on 06/28/16 10:00; Admin Dose 5 MG; Start 06/16/16 at 09:00 Capsaicin (Theragen) 1 applic QID TOP Last administered on 06/28/16 10:02; Admin Dose 1 APPLIC; Start 06/15/16 at 21:00 Lidocaine (Lidocaine 5% Oint) 1 applic TID PRN TOP ITCHING/PAIN; Start at 15:30 Docusate Sodium (Colace) 100 mg BID PO Last administered on 06/27/16 20:55; Admin Dose 100 MG; Start 06/16/16 at 15:00 Bisacodyl (Dulcolax) 10 mg DAILY PRN PO CONSTIPATION Last administered on 20:44; Admin Dose 10 MG; Start 06/16/16 at 14:00 Guaifenesin/ Dextromethorphan (Robitussin Dm Liquid Cup) 10 ml Q4H PRN PO COUGH ; Start 06/17/16 at 17:30 Fluticasone Propionate (Flonase 0.05% Nasal) 1 spray BID NASAL Last administered on 06/28/16 10:02; Admin Dose 1 SPRAY; Start 06/19/16 at 09:00 Insulin Human NPH (Humulin N) 10 unit HS SC Last administered on 06/20/16 21: 04; Admin Dose 10 UNIT; Start 06/19/16 at 21:00; Status Future Hold Hydralazine HCl (Apresoline) 25 mg Q8 PO Last administered on 06/27/16 22:26; Admin Dose 25 MG; Start 06/20/16 at 14:00 Lisinopril (Zestril) 20 mg DAILY PO Last administered on 06/23/16 08:24; Admin Dose 20 MG; Start 06/22/16 at 09:00; Status Future Hold Atorvastatin Calcium (Lipitor) 40 mg HS PO Last administered on 06/27/16 20:56 ; Admin Dose 40 MG; Start 06/22/16 at 21:00 Nitroglycerin (Nitroglycerin 0.4 Mg/Hr) 1 patch DAILY TRANSDERM Last administered on 06/28/16 10:03; Admin Dose 1 PATCH; Start 06/22/16 at 11:30 Morphine Sulfate (morphine) 2 mg Q4H PRN IV pain Last administered on 06/25/16 01:58; Admin Dose 2 MG; Start 06/22/16 at 10:30 Methyldopa (Aldomet) 500 mg BID PO Last administered on 06/28/16 10:01; Admin Dose 500 MG; Start 06/26/16 at 09:00 Metolazone (Zaroxolyn) 2.5 mg DAILY PO Last administered on 06/28/16 09:59; Admin Dose 2.5 MG; Start 06/26/16 at 09:00 Insulin Glargine 32 unit 32 unit BID@08,20 SC ; Start 06/28/16 at 08:00 Bumetanide/ Dextrose (Bumex/D5W) 120 ml @ 10 mls/hr Q24H IV ; Start 06/28/16 at 09:00 Assessment/Plan Chief Complaint/Hosp Course 1. Acute hypoxemic respiratory failure,/ decompensated systolic/diastolic heart failure+ chronic obstructive pulmonary disease. -The patient has declined in the last 24 hours despite being placed on a Bumex drip overnight. - Recent chest x-ray does show worsening congestion. Plan is to intensify diuretic therapy. -s/p Bumex 2 mg IV b.i.d. with metolazone. -We will repeat a chest x-ray. We will also monitor strict I's and O's. -We will follow up with pulmonary and cardiology for further recommendations and monitor closely. 2. Nonoliguric acute kidney injury on top of chronic kidney disease, stage IV, with previous baseline creatinine around 2 mg/dL. Etiology of acute kidney injury is secondary to hemodynamics. Renal function has declined in the last 24 to 48 hours. Likely due to diuretic therapy. We will continue to monitor closely. -If the patient's renal function should further decline and the patient becomes nonresponsive to diuretic therapy, we would then consider starting renal replacement therapy. -Otherwise, continue supportive care, renally dose all meds, avoid nephrotoxins. 3. Acute decompensated systolic/diastolic heart failure. The patient has clinically declined in the last 24 hours. The patient continues to be short of breath. We will continue diuretic regimen as stated above. Follow up chest x- ray. Follow up with cardiology for further recommendations. 4. Right ovarian cystic mass concerning for neoplasm. The patient's surgery is currently on hold until she is clinically more stable. 5. Hypertension. Continue current blood pressure regimen. 6. Anemia. Continue to monitor hemoglobin and hematocrit levels. 7. Diabetes. Continue current insulin regimen. Follow up with endocrinology. 8. History of coronary artery disease. 9. Chronic kidney disease, stage IV, secondary to diabetes, hypertension. The patient is currently in acute kidney injury as stated above. Continue to monitor. 10. Morbid obesity. Continue dietary modification. 11. Sleep apnea. The patient has refused CPAP on supplemental oxygen. 12. Dyslipidemia. Continue statin therapy. 13. Neuropathy. Continue Lyrica. 14. Mild hyperkalemia, resolved. 15. Gastrointestinal and deep venous thrombosis prophylaxis. Continue proton pump inhibitor and sequential leg squeezers. Problems: SARAH BETH FOFANA MD Jun 28, 2016 10:13
[2016-06-28] MEDS: INSULIN GLARGINE [LANtus] 3 ML PEN SC SCH ×2 (10:14→20:13)
[2016-06-28] MEDS ORDERED: METHYLPREDNISOLONE 40 MG INJ IV SCH (11:30)
[2016-06-28] MEDS: METHYLPREDNISOLONE 125 MG INJ IV SCH (13:03)
--- NOTE | 2016-06-28 13:43 | CONS ---
Date/Time of Note Date/Time of Note DATE: 06/28/16 TIME: 13:40 Assessment/Plan Assessment/Plan Chief Complaint/Hosp Course Acute on chronic diastolic heart failure: EF preserved. Still decompensated but improving on bumex/metolazone Chest pain: Resolved. Trops negative Accelerated HTN: BPs mostly controlled Ovarian mass: Being evaluated by heme/onc.Refusing surgery at this time Urinary retention: requiring martinez Acute on chronic renal failure: improved after obstruction resolved. Now mostly stable h/o CAD s/p CABG DM PVD s/p renal stent -continue bumex drip at 1mg/hr -continue metolazone -ASA, statin -continue amlodipine 10mg -hydralazine 25mg q8h -continue home nebivolol, methyldopa -will follow Problems: Consultation Date/Type/Reason Admit Date/Time Jun 09, 2016 at 12:22 Initial Consult Date 06/10/16 Type of Consultation: Cardiology 24 HR Interval Summary Free Text/Dictation Now has a martinez and has better UOP. Still SOB but improving. Tearful. Exam/Review of Systems Vital Signs Vitals Vital Signs Date Time Temp Pulse Resp B/P Pulse Ox O2 Delivery O2 Flow Rate FiO2 06/28/16 12:18 78 06/28/16 11:46 98.3 20 136/62 90 06/28/16 08:00 Nasal Cannula 5.0 06/28/16 01:38 35 Intake and Output 06/27/16 06/27/16 06/28/16 15:00 23:00 07:00 Intake Total 300 ml 650 ml 200 ml Output Total 200 ml 1500 ml 2000 ml Balance 100 ml -850 ml -1800 ml Exam Constitutional: alert, oriented Head: normocephalic Neck: jvd (difficult but appears to be elevated ) Respiratory: crackles/rales, No clear to auscultation Cardiovascular: edema (2+), regular rate and rhythm Gastrointestinal: soft Neurological: nl mental status Results Result Diagram: 06/28/16 0555 06/28/16 0546 Results 24 hrs Laboratory Tests Test 06/27/16 17:05 06/27/16 21:05 06/28/16 01:16 06/28/16 05:00 Bedside Glucose 181 276 H 350 H Arterial Blood HCO3 22.9 Arterial Blood Base Excess -2.9 Arterial Blood Oxygen Saturation 92.4 L Jasmeet Test ACCEPTAB Arterial Blood Gas Puncture Site Right Radial Arterial Blood Carboxyhemoglobin 0.1 Arterial Blood Date Drawn 06/28/2016 5:00:06 AM Arterial Blood Methemoglobin 0.2 Arterial Blood pCO2 (Temp correct) 44.0 Arterial Blood pH (Temp corrected) 7.335 L Arterial Blood pO2 (Temp corrected) 70.7 L Blood Gas A-a O2 Differential 134.9 H Blood Gas Modality NASAL CANNULA Blood Gas Notified Time 06/28/2016 5:10:47 AM Blood Gas Notified Whom JMD Blood Gas Specimen Source Blood arterial Blood Gas Temperature 37.0 FiO2 36.0 Oxyhemoglobin Percent 92.1 L Total Hemoglobin 11.1 L Test 06/28/16 05:46 06/28/16 05:55 06/28/16 05:56 06/28/16 08:13 Anion Gap 19 H Blood Urea Nitrogen 59 H Calcium Level 8.5 Carbon Dioxide Level 25 Chloride Level 101 Creatinine 2.44 H Glucose Level 375 H Magnesium Level 1.8 1.9 Phosphorus Level 4.8 4.8 Potassium Level 5.1 Sodium Level 140 Basophils # 0.0 Basophils % 0.1 Eosinophils # 0.0 Eosinophils % 0.0 Hematocrit 30.7 L Hemoglobin 9.4 L Lymphocytes # 0.5 L Lymphocytes % 7.1 L Mean Corpuscular Hemoglobin 31.4 Mean Corpuscular Hemoglobin Concent 30.6 L Mean Corpuscular Volume 102.7 H Mean Platelet Volume 11.5 H Monocytes # 0.1 L Monocytes % 1.0 Neutrophils # 6.2 Neutrophils % 90.4 H Nucleated Red Blood Cells # 0.0 Nucleated Red Blood Cells % 0.0 Platelet Count 254 Red Blood Count 2.99 L Red Cell Distribution Width 15.4 H White Blood Count 6.9 Bedside Glucose 312 H Test 06/28/16 12:10 Bedside Glucose 271 H Medications Medications Current Medications Gabapentin (Neurontin) 600 mg TID PO Last administered on 06/28/16 09:57; Admin Dose 600 MG; Start 06/09/16 at 21:00 Miscellaneous Medication (Bystolic) 20 mg DAILY PO Last administered on 09:55; Admin Dose 20 MG; Start 06/10/16 at 09:00 Pregabalin (Lyrica) 150 mg QHS PO Last administered on 06/27/16 20:56; Admin Dose 150 MG; Start 06/09/16 at 21:00 Valacyclovir HCl (Valtrex) 1,000 mg BID PO Last administered on 06/28/16 09:57 ; Admin Dose 1,000 MG; Start 06/09/16 at 21:00 Miscellaneous Information 1 ea NOTE XX ; Start 06/09/16 at 18:30 Glucose (Glutose) 15 gm Q15M PRN PO DECREASED GLUCOSE; Start 06/09/16 at 18:30 Glucose (Glutose) 22.5 gm Q15M PRN PO DECREASED GLUCOSE; Start 06/09/16 at 18: 30 Dextrose (D50w Syringe) 25 ml Q15M PRN IV DECREASED GLUCOSE; Start 06/09/16 at 18:30 Dextrose (D50w Syringe) 50 ml Q15M PRN IV DECREASED GLUCOSE; Start 06/09/16 at 18:30 Glucagon (Glucagen) 1 mg Q15M PRN IM DECREASED GLUCOSE; Start 06/09/16 at 18:30 Glucose (Glutose) 15 gm Q15M PRN BUCCAL DECREASED GLUCOSE; Start 06/09/16 at 18 :30 Amlodipine Besylate (Norvasc) 10 mg DAILY PO Last administered on 06/28/16 09: 59; Admin Dose 10 MG; Start 06/09/16 at 20:30 Hydromorphone HCl (Dilaudid) 0.5 mg Q4H PRN IV PAIN Last administered on 01:54; Admin Dose 0.5 MG; Start 06/10/16 at 02:30 Pantoprazole (Protonix Tab) 40 mg DAILY@06 PO Last administered on 06/28/16 05: 32; Admin Dose 40 MG; Start 06/11/16 at 06:00 Clonidine (Catapres) 0.2 mg Q6H PRN PO SBP above 160 Last administered on 10:22; Admin Dose 0.2 MG; Start 06/10/16 at 12:17 Hydralazine HCl (Apresoline) 10 mg Q4H PRN IV SBP >170 Last administered on 23:24; Admin Dose 10 MG; Start 06/10/16 at 15:00 Lorazepam (Ativan) 0.5 mg HS PO Last administered on 06/26/16 21:41; Admin Dose 0.5 MG; Start 06/11/16 at 22:00 Bethanechol Chloride (Urecholine) 25 mg TID PO Last administered on 06/28/16 09 :58; Admin Dose 25 MG; Start 06/13/16 at 13:00 Linagliptin (Tradjenta) 5 mg DAILY PO Last administered on 06/28/16 10:00; Admin Dose 5 MG; Start 06/16/16 at 09:00 Capsaicin (Theragen) 1 applic QID TOP Last administered on 06/28/16 10:02; Admin Dose 1 APPLIC; Start 06/15/16 at 21:00 Lidocaine (Lidocaine 5% Oint) 1 applic TID PRN TOP ITCHING/PAIN; Start at 15:30 Docusate Sodium (Colace) 100 mg BID PO Last administered on 06/27/16 20:55; Admin Dose 100 MG; Start 06/16/16 at 15:00 Bisacodyl (Dulcolax) 10 mg DAILY PRN PO CONSTIPATION Last administered on 20:44; Admin Dose 10 MG; Start 06/16/16 at 14:00 Guaifenesin/ Dextromethorphan (Robitussin Dm Liquid Cup) 10 ml Q4H PRN PO COUGH ; Start 06/17/16 at 17:30 Fluticasone Propionate (Flonase 0.05% Nasal) 1 spray BID NASAL Last administered on 06/28/16 10:02; Admin Dose 1 SPRAY; Start 06/19/16 at 09:00 Insulin Human NPH (Humulin N) 10 unit HS SC Last administered on 06/20/16 21: 04; Admin Dose 10 UNIT; Start 06/19/16 at 21:00; Status Future Hold Hydralazine HCl (Apresoline) 25 mg Q8 PO Last administered on 06/27/16 22:26; Admin Dose 25 MG; Start 06/20/16 at 14:00 Lisinopril (Zestril) 20 mg DAILY PO Last administered on 06/23/16 08:24; Admin Dose 20 MG; Start 06/22/16 at 09:00; Status Future Hold Atorvastatin Calcium (Lipitor) 40 mg HS PO Last administered on 06/27/16 20:56 ; Admin Dose 40 MG; Start 06/22/16 at 21:00 Nitroglycerin (Nitroglycerin 0.4 Mg/Hr) 1 patch DAILY TRANSDERM Last administered on 06/28/16 10:03; Admin Dose 1 PATCH; Start 06/22/16 at 11:30 Morphine Sulfate (morphine) 2 mg Q4H PRN IV pain Last administered on 06/25/16 01:58; Admin Dose 2 MG; Start 06/22/16 at 10:30 Methyldopa (Aldomet) 500 mg BID PO Last administered on 06/28/16 10:01; Admin Dose 500 MG; Start 06/26/16 at 09:00 Metolazone (Zaroxolyn) 2.5 mg DAILY PO Last administered on 06/28/16 09:59; Admin Dose 2.5 MG; Start 06/26/16 at 09:00 Insulin Glargine 32 unit 32 unit BID@08,20 SC Last administered on 06/28/16 10: 14; Admin Dose 32 UNIT; Start 06/28/16 at 08:00 Bumetanide/ Dextrose (Bumex/D5W) 120 ml @ 10 mls/hr Q24H IV Last administered on 06/28/16 10:04; Admin Dose 10 MLS/HR; Start 06/28/16 at 09:00 Methylprednisolone Sodium Succinate (Solu-Medrol) 60 mg DAILY IV ; Start at 11:30 AMISHA NIETO Jun 28, 2016 13:43
--- NOTE | 2016-06-28 15:38 | CONS ---
Date/Time of Note Date/Time of Note DATE: 06/28/16 TIME: 15:35 Consult Date/Type/Reason Admit Date/Time Jun 09, 2016 at 12:22 Initial Consult Date 06/15/16 Type of Consultation: Pulm Subjective No events. Some response to bumex gtt. ABG looks okay. Objective Vital Signs Date Time Temp Pulse Resp B/P Pulse Ox O2 Delivery O2 Flow Rate FiO2 06/28/16 15:19 98.1 82 20 134/61 90 06/28/16 13:45 Nasal Cannula 4.0 06/28/16 01:38 35 Intake and Output 06/27/16 06/27/16 06/28/16 15:00 23:00 07:00 Intake Total 300 ml 650 ml 200 ml Output Total 200 ml 1500 ml 2000 ml Balance 100 ml -850 ml -1800 ml HEENT: Neck supple; no JVD; no LAD CVS: RRR, S1 and S2 CHEST: decreased BS and rales at bases ABD: Soft, NT, + BS EXT: No c/c/ ++ edema Results/Medications Result Diagram: 06/28/16 0555 06/28/16 0546 Results 24 hrs Laboratory Tests Test 06/27/16 17:05 06/27/16 21:05 06/28/16 01:16 06/28/16 05:00 Bedside Glucose 181 276 H 350 H Arterial Blood HCO3 22.9 Arterial Blood Base Excess -2.9 Arterial Blood Oxygen Saturation 92.4 L Jasmeet Test ACCEPTAB Arterial Blood Gas Puncture Site Right Radial Arterial Blood Carboxyhemoglobin 0.1 Arterial Blood Date Drawn 06/28/2016 5:00:06 AM Arterial Blood Methemoglobin 0.2 Arterial Blood pCO2 (Temp correct) 44.0 Arterial Blood pH (Temp corrected) 7.335 L Arterial Blood pO2 (Temp corrected) 70.7 L Blood Gas A-a O2 Differential 134.9 H Blood Gas Modality NASAL CANNULA Blood Gas Notified Time 06/28/2016 5:10:47 AM Blood Gas Notified Whom REINA Blood Gas Specimen Source Blood arterial Blood Gas Temperature 37.0 FiO2 36.0 Oxyhemoglobin Percent 92.1 L Total Hemoglobin 11.1 L Test 06/28/16 05:46 06/28/16 05:55 06/28/16 05:56 06/28/16 08:13 Anion Gap 19 H Blood Urea Nitrogen 59 H Calcium Level 8.5 Carbon Dioxide Level 25 Chloride Level 101 Creatinine 2.44 H Glucose Level 375 H Magnesium Level 1.8 1.9 Phosphorus Level 4.8 4.8 Potassium Level 5.1 Sodium Level 140 Basophils # 0.0 Basophils % 0.1 Eosinophils # 0.0 Eosinophils % 0.0 Hematocrit 30.7 L Hemoglobin 9.4 L Lymphocytes # 0.5 L Lymphocytes % 7.1 L Mean Corpuscular Hemoglobin 31.4 Mean Corpuscular Hemoglobin Concent 30.6 L Mean Corpuscular Volume 102.7 H Mean Platelet Volume 11.5 H Monocytes # 0.1 L Monocytes % 1.0 Neutrophils # 6.2 Neutrophils % 90.4 H Nucleated Red Blood Cells # 0.0 Nucleated Red Blood Cells % 0.0 Platelet Count 254 Red Blood Count 2.99 L Red Cell Distribution Width 15.4 H White Blood Count 6.9 Bedside Glucose 312 H Test 06/28/16 12:10 Bedside Glucose 271 H Medications Current Medications Gabapentin (Neurontin) 600 mg TID PO Last administered on 06/28/16 13:03; Admin Dose 600 MG; Start 06/09/16 at 21:00 Miscellaneous Medication (Bystolic) 20 mg DAILY PO Last administered on 09:55; Admin Dose 20 MG; Start 06/10/16 at 09:00 Pregabalin (Lyrica) 150 mg QHS PO Last administered on 06/27/16 20:56; Admin Dose 150 MG; Start 06/09/16 at 21:00 Valacyclovir HCl (Valtrex) 1,000 mg BID PO Last administered on 06/28/16 09:57 ; Admin Dose 1,000 MG; Start 06/09/16 at 21:00 Miscellaneous Information 1 ea NOTE XX ; Start 06/09/16 at 18:30 Glucose (Glutose) 15 gm Q15M PRN PO DECREASED GLUCOSE; Start 06/09/16 at 18:30 Glucose (Glutose) 22.5 gm Q15M PRN PO DECREASED GLUCOSE; Start 06/09/16 at 18: 30 Dextrose (D50w Syringe) 25 ml Q15M PRN IV DECREASED GLUCOSE; Start 06/09/16 at 18:30 Dextrose (D50w Syringe) 50 ml Q15M PRN IV DECREASED GLUCOSE; Start 06/09/16 at 18:30 Glucagon (Glucagen) 1 mg Q15M PRN IM DECREASED GLUCOSE; Start 06/09/16 at 18:30 Glucose (Glutose) 15 gm Q15M PRN BUCCAL DECREASED GLUCOSE; Start 06/09/16 at 18 :30 Amlodipine Besylate (Norvasc) 10 mg DAILY PO Last administered on 06/28/16 09: 59; Admin Dose 10 MG; Start 06/09/16 at 20:30 Hydromorphone HCl (Dilaudid) 0.5 mg Q4H PRN IV PAIN Last administered on 01:54; Admin Dose 0.5 MG; Start 06/10/16 at 02:30 Pantoprazole (Protonix Tab) 40 mg DAILY@06 PO Last administered on 06/28/16 05: 32; Admin Dose 40 MG; Start 06/11/16 at 06:00 Clonidine (Catapres) 0.2 mg Q6H PRN PO SBP above 160 Last administered on 10:22; Admin Dose 0.2 MG; Start 06/10/16 at 12:17 Hydralazine HCl (Apresoline) 10 mg Q4H PRN IV SBP >170 Last administered on 23:24; Admin Dose 10 MG; Start 06/10/16 at 15:00 Lorazepam (Ativan) 0.5 mg HS PO Last administered on 06/26/16 21:41; Admin Dose 0.5 MG; Start 06/11/16 at 22:00 Bethanechol Chloride (Urecholine) 25 mg TID PO Last administered on 06/28/16 13 :03; Admin Dose 25 MG; Start 06/13/16 at 13:00 Linagliptin (Tradjenta) 5 mg DAILY PO Last administered on 06/28/16 10:00; Admin Dose 5 MG; Start 06/16/16 at 09:00 Capsaicin (Theragen) 1 applic QID TOP Last administered on 06/28/16 13:08; Admin Dose 1 APPLIC; Start 06/15/16 at 21:00 Lidocaine (Lidocaine 5% Oint) 1 applic TID PRN TOP ITCHING/PAIN; Start at 15:30 Docusate Sodium (Colace) 100 mg BID PO Last administered on 06/27/16 20:55; Admin Dose 100 MG; Start 06/16/16 at 15:00 Bisacodyl (Dulcolax) 10 mg DAILY PRN PO CONSTIPATION Last administered on 20:44; Admin Dose 10 MG; Start 06/16/16 at 14:00 Guaifenesin/ Dextromethorphan (Robitussin Dm Liquid Cup) 10 ml Q4H PRN PO COUGH ; Start 06/17/16 at 17:30 Fluticasone Propionate (Flonase 0.05% Nasal) 1 spray BID NASAL Last administered on 06/28/16 10:02; Admin Dose 1 SPRAY; Start 06/19/16 at 09:00 Insulin Human NPH (Humulin N) 10 unit HS SC Last administered on 06/20/16 21: 04; Admin Dose 10 UNIT; Start 06/19/16 at 21:00; Status Future Hold Hydralazine HCl (Apresoline) 25 mg Q8 PO Last administered on 06/28/16 15:03; Admin Dose 25 MG; Start 06/20/16 at 14:00 Lisinopril (Zestril) 20 mg DAILY PO Last administered on 06/23/16 08:24; Admin Dose 20 MG; Start 06/22/16 at 09:00; Status Future Hold Atorvastatin Calcium (Lipitor) 40 mg HS PO Last administered on 06/27/16 20:56 ; Admin Dose 40 MG; Start 06/22/16 at 21:00 Nitroglycerin (Nitroglycerin 0.4 Mg/Hr) 1 patch DAILY TRANSDERM Last administered on 06/28/16 10:03; Admin Dose 1 PATCH; Start 06/22/16 at 11:30 Morphine Sulfate (morphine) 2 mg Q4H PRN IV pain Last administered on 06/25/16 01:58; Admin Dose 2 MG; Start 06/22/16 at 10:30 Methyldopa (Aldomet) 500 mg BID PO Last administered on 06/28/16 10:01; Admin Dose 500 MG; Start 06/26/16 at 09:00 Metolazone (Zaroxolyn) 2.5 mg DAILY PO Last administered on 06/28/16 09:59; Admin Dose 2.5 MG; Start 06/26/16 at 09:00 Insulin Glargine 32 unit 32 unit BID@08,20 SC Last administered on 06/28/16 10: 14; Admin Dose 32 UNIT; Start 06/28/16 at 08:00 Bumetanide/ Dextrose (Bumex/D5W) 120 ml @ 10 mls/hr Q24H IV Last administered on 06/28/16 10:04; Admin Dose 10 MLS/HR; Start 06/28/16 at 09:00 Methylprednisolone Sodium Succinate (Solu-Medrol) 60 mg DAILY IV Last administered on 06/28/16 13:03; Admin Dose 60 MG; Start 06/28/16 at 11:30 Assessment/Plan Additional Assessment/Plan IMP: 1. Hypoxemic resp insufficiency--volume overload +/- component of COPD exacerbation 2. Ovarian mass 3. Renal insufficiency. 5. CHF. 6. Diabetes. 7. Hypertension. 8. Severe COPD, O2 dependent RECS: 1. Continue bumex gtt and metolazone 2. Follow renal function 3. Follow I/O's 4. Initiate short course of systemic corticosteroids TERESE KAYE MD Jun 28, 2016 15:38
--- NOTE | 2016-06-28 19:14 | CONS ---
Date/Time of Note Date/Time of Note DATE: 06/28/16 TIME: 19:13 Assessment/Plan Assessment/Plan Chief Complaint/Hosp Course 1. A right ovarian cystic mass. Etiology is unclear, concerning for possible malignancy. PT IS DECLINING SURGERY AT PRESENT 2. Anemia. Continue to monitor hemoglobin and hematocrit levels. + component ACD OBSERVE FOR BLEEDING AND HEMOLYSIS SERVIN / NUMBNESS LUE- RESOLVED CT HEAD- NEG 3. Nonoliguric acute kidney injury on top of chronic kidney disease with a previous baseline renal function around 1.5 to 2 mg/dL. Etiology of acute kidney injury is possibly secondary to urinary retention, obstructive uropathy versus hemodynamics, possible cardiorenal syndrome. The patient's urinalysis shows findings of proteinuria but no pyuria, no hematuria, and a CT scan of the abdomen and pelvis showed no evidence of hydronephrosis. Plan at this point is to check a renal ultrasound. Will repeat UA with microanalysis. Will check urine electrolytes. Will continue supportive care, renally dose medications, avoid nephrotoxins, monitor renal function closely. Clinical albuminuria - PER NEPHROLOGY 4 Urinary retention. Underlying etiology is unclear. The patient is status post Martinez catheter placement with good urinary output. Seen by urology still unable to urinate on intermittent catheterizations URECHOLINE - DOSE INCREASED 5. Acute decompensated diastolic heart failure. The patient noted to have pulmonary congestion, lower extremity edema. The patient is status post Lasix; will continue- PER NEPHRO cardiology F-UP PT IS IV BUMEX AROUND THE CLOCK 6. History of coronary artery disease, status post coronary artery bypass graft. Continue current medical management. 7. Diabetes. Will continue Accu-Cheks, insulin sliding scale, continue Lantus. HB A1C- 8.1 8. Chronic kidney disease stage IIIB/IV. Etiology is multifactorial secondary to diabetes, hypertension. The patient is currently in acute kidney injury as stated above. Continue medical management. 9. Morbid obesity. Continue dietary modification. 10. Dyslipidemia. Continue statin therapy. 11. Obstructive sleep apnea. Continue supplemental oxygen. Consider a pulmonary consult for evaluation. 12. Hypertension- POORLY CONTROLLED Continue current blood pressure regimen. Will adjust medications as needed. CARDIOLOGY F-UP 13. History of peripheral vascular disease. Continue current medical management. 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 SEVERE DJD/OA WITH CHRONIC PAIN 16. GI PROBLEMS- WITH ABD PAIN, DIARRHEA/ ALTERNATING WITH CONSTIPATION GI F-UP Problems: Consultation Date/Type/Reason Admit Date/Time Jun 09, 2016 at 12:22 Initial Consult Date 06/09/16 Type of Consultation: hemeonc 24 HR Interval Summary Free Text/Dictation Still decompensated but improving on bumex/metolazone Now has a martinez and has better UOP. Still SOB but improving. Tearful. Exam/Review of Systems Vital Signs Vitals Vital Signs Date Time Temp Pulse Resp B/P Pulse Ox O2 Delivery O2 Flow Rate FiO2 06/28/16 17:39 5.0 06/28/16 16:13 82 06/28/16 15:19 98.1 20 134/61 90 06/28/16 13:45 Nasal Cannula 06/28/16 01:38 35 Intake and Output 06/27/16 06/27/16 06/28/16 15:00 23:00 07:00 Intake Total 300 ml 650 ml 200 ml Output Total 200 ml 1500 ml 2000 ml Balance 100 ml -850 ml -1800 ml Exam Exam Constitutional: alert, oriented Head: normocephalic Neck: jvd (difficult but appears to be elevated ) Respiratory: crackles/rales, No clear to auscultation Cardiovascular: edema (2+), regular rate and rhythm Gastrointestinal: soft Neurological: nl mental status Results Result Diagram: 06/28/16 0555 06/28/16 0546 Results 24 hrs Laboratory Tests Test 06/27/16 21:05 06/28/16 01:16 06/28/16 05:00 06/28/16 05:46 Bedside Glucose 276 H 350 H Arterial Blood HCO3 22.9 Arterial Blood Base Excess -2.9 Arterial Blood Oxygen Saturation 92.4 L Jasmeet Test ACCEPTAB Arterial Blood Gas Puncture Site Right Radial Arterial Blood Carboxyhemoglobin 0.1 Arterial Blood Date Drawn 06/28/2016 5:00:06 AM Arterial Blood Methemoglobin 0.2 Arterial Blood pCO2 (Temp correct) 44.0 Arterial Blood pH (Temp corrected) 7.335 L Arterial Blood pO2 (Temp corrected) 70.7 L Blood Gas A-a O2 Differential 134.9 H Blood Gas Modality NASAL CANNULA Blood Gas Notified Time 06/28/2016 5:10:47 AM Blood Gas Notified Whom REINA Blood Gas Specimen Source Blood arterial Blood Gas Temperature 37.0 FiO2 36.0 Oxyhemoglobin Percent 92.1 L Total Hemoglobin 11.1 L Anion Gap 19 H Blood Urea Nitrogen 59 H Calcium Level 8.5 Carbon Dioxide Level 25 Chloride Level 101 Creatinine 2.44 H Glucose Level 375 H Magnesium Level 1.8 Phosphorus Level 4.8 Potassium Level 5.1 Sodium Level 140 Test 06/28/16 05:55 06/28/16 05:56 06/28/16 08:13 06/28/16 12:10 Basophils # 0.0 Basophils % 0.1 Eosinophils # 0.0 Eosinophils % 0.0 Hematocrit 30.7 L Hemoglobin 9.4 L Lymphocytes # 0.5 L Lymphocytes % 7.1 L Mean Corpuscular Hemoglobin 31.4 Mean Corpuscular Hemoglobin Concent 30.6 L Mean Corpuscular Volume 102.7 H Mean Platelet Volume 11.5 H Monocytes # 0.1 L Monocytes % 1.0 Neutrophils # 6.2 Neutrophils % 90.4 H Nucleated Red Blood Cells # 0.0 Nucleated Red Blood Cells % 0.0 Platelet Count 254 Red Blood Count 2.99 L Red Cell Distribution Width 15.4 H White Blood Count 6.9 Magnesium Level 1.9 Phosphorus Level 4.8 Bedside Glucose 312 H 271 H Test 06/28/16 17:51 Bedside Glucose 296 H Medications Medications Current Medications Gabapentin (Neurontin) 600 mg TID PO Last administered on 06/28/16 13:03; Admin Dose 600 MG; Start 06/09/16 at 21:00 Miscellaneous Medication (Bystolic) 20 mg DAILY PO Last administered on 09:55; Admin Dose 20 MG; Start 06/10/16 at 09:00 Pregabalin (Lyrica) 150 mg QHS PO Last administered on 06/27/16 20:56; Admin Dose 150 MG; Start 06/09/16 at 21:00 Valacyclovir HCl (Valtrex) 1,000 mg BID PO Last administered on 06/28/16 09:57 ; Admin Dose 1,000 MG; Start 06/09/16 at 21:00 Miscellaneous Information 1 ea NOTE XX ; Start 06/09/16 at 18:30 Glucose (Glutose) 15 gm Q15M PRN PO DECREASED GLUCOSE; Start 06/09/16 at 18:30 Glucose (Glutose) 22.5 gm Q15M PRN PO DECREASED GLUCOSE; Start 06/09/16 at 18: 30 Dextrose (D50w Syringe) 25 ml Q15M PRN IV DECREASED GLUCOSE; Start 06/09/16 at 18:30 Dextrose (D50w Syringe) 50 ml Q15M PRN IV DECREASED GLUCOSE; Start 06/09/16 at 18:30 Glucagon (Glucagen) 1 mg Q15M PRN IM DECREASED GLUCOSE; Start 06/09/16 at 18:30 Glucose (Glutose) 15 gm Q15M PRN BUCCAL DECREASED GLUCOSE; Start 06/09/16 at 18 :30 Amlodipine Besylate (Norvasc) 10 mg DAILY PO Last administered on 06/28/16 09: 59; Admin Dose 10 MG; Start 06/09/16 at 20:30 Hydromorphone HCl (Dilaudid) 0.5 mg Q4H PRN IV PAIN Last administered on 01:54; Admin Dose 0.5 MG; Start 06/10/16 at 02:30 Pantoprazole (Protonix Tab) 40 mg DAILY@06 PO Last administered on 06/28/16 05: 32; Admin Dose 40 MG; Start 06/11/16 at 06:00 Clonidine (Catapres) 0.2 mg Q6H PRN PO SBP above 160 Last administered on 10:22; Admin Dose 0.2 MG; Start 06/10/16 at 12:17 Hydralazine HCl (Apresoline) 10 mg Q4H PRN IV SBP >170 Last administered on 23:24; Admin Dose 10 MG; Start 06/10/16 at 15:00 Lorazepam (Ativan) 0.5 mg HS PO Last administered on 06/26/16 21:41; Admin Dose 0.5 MG; Start 06/11/16 at 22:00 Bethanechol Chloride (Urecholine) 25 mg TID PO Last administered on 06/28/16 13 :03; Admin Dose 25 MG; Start 06/13/16 at 13:00 Linagliptin (Tradjenta) 5 mg DAILY PO Last administered on 06/28/16 10:00; Admin Dose 5 MG; Start 06/16/16 at 09:00 Capsaicin (Theragen) 1 applic QID TOP Last administered on 06/28/16 17:40; Admin Dose 1 APPLIC; Start 06/15/16 at 21:00 Lidocaine (Lidocaine 5% Oint) 1 applic TID PRN TOP ITCHING/PAIN; Start at 15:30 Docusate Sodium (Colace) 100 mg BID PO Last administered on 06/27/16 20:55; Admin Dose 100 MG; Start 06/16/16 at 15:00 Bisacodyl (Dulcolax) 10 mg DAILY PRN PO CONSTIPATION Last administered on 20:44; Admin Dose 10 MG; Start 06/16/16 at 14:00 Guaifenesin/ Dextromethorphan (Robitussin Dm Liquid Cup) 10 ml Q4H PRN PO COUGH ; Start 06/17/16 at 17:30 Fluticasone Propionate (Flonase 0.05% Nasal) 1 spray BID NASAL Last administered on 06/28/16 10:02; Admin Dose 1 SPRAY; Start 06/19/16 at 09:00 Insulin Human NPH (Humulin N) 10 unit HS SC Last administered on 06/20/16 21: 04; Admin Dose 10 UNIT; Start 06/19/16 at 21:00; Status Future Hold Hydralazine HCl (Apresoline) 25 mg Q8 PO Last administered on 06/28/16 15:03; Admin Dose 25 MG; Start 06/20/16 at 14:00 Lisinopril (Zestril) 20 mg DAILY PO Last administered on 06/23/16 08:24; Admin Dose 20 MG; Start 06/22/16 at 09:00; Status Future Hold Atorvastatin Calcium (Lipitor) 40 mg HS PO Last administered on 06/27/16 20:56 ; Admin Dose 40 MG; Start 06/22/16 at 21:00 Nitroglycerin (Nitroglycerin 0.4 Mg/Hr) 1 patch DAILY TRANSDERM Last administered on 06/28/16 10:03; Admin Dose 1 PATCH; Start 06/22/16 at 11:30 Morphine Sulfate (morphine) 2 mg Q4H PRN IV pain Last administered on 06/25/16 01:58; Admin Dose 2 MG; Start 06/22/16 at 10:30 Methyldopa (Aldomet) 500 mg BID PO Last administered on 06/28/16 10:01; Admin Dose 500 MG; Start 06/26/16 at 09:00 Metolazone (Zaroxolyn) 2.5 mg DAILY PO Last administered on 06/28/16 09:59; Admin Dose 2.5 MG; Start 06/26/16 at 09:00 Insulin Glargine 32 unit 32 unit BID@08,20 SC Last administered on 06/28/16 10: 14; Admin Dose 32 UNIT; Start 06/28/16 at 08:00 Bumetanide/ Dextrose (Bumex/D5W) 120 ml @ 10 mls/hr Q24H IV Last administered on 06/28/16 10:04; Admin Dose 10 MLS/HR; Start 06/28/16 at 09:00 Methylprednisolone Sodium Succinate (Solu-Medrol) 60 mg DAILY IV Last administered on 06/28/16 13:03; Admin Dose 60 MG; Start 06/28/16 at 11:30 SHARLA SOUSA MD Jun 28, 2016 19:14
[2016-06-28] MEDS: ATORVASTATIN 40 MG TAB PO SCH (20:44)
[2016-06-28] MEDS: PREGABALIN 75 MG CAP PO SCH (20:47)
[2016-06-28] MEDS: LORAZEPAM 0.5 MG TAB PO SCH (21:00)
[2016-06-29] VITALS (15 sets, daily range): BP systolic 102–152; BP diastolic 44–79; PULSE 65–83; RESP 18–83
[2016-06-29] MEDS: PANTOPRAZOLE (EC) 40 MG TAB PO SCH (05:33)
[2016-06-29] MEDS ORDERED: BUMETANIDE 6 MG in DEXTROSE 5% 36 ML IV ONE (08:00)
[2016-06-29] MEDS: ALBUTEROL/IPRATROPIUM (NEB) 3 ML AMP HHN SCH ×3 (08:14→21:50)
--- NOTE | 2016-06-29 08:22 | PN ---
DATE: 06/29/2016 SUBJECTIVE: The patient remains short of breath, lethargic, but arousable. The patient overnight h ad good urinary response to Bumex drip. No other events noted. No hemoptysis, hematemesis, or isai tochezia. OBJECTIVE: VITAL SIGNS: Blood pressure is 146/70, respiratory rate 22, pulse 65, temperature 98.2. INTAKE AND OUTPUT: The patient 1 liter in, 3.4 liters out. HEENT: Head is normocephalic. NECK: Supple. HEART: Regular rate. LUNGS: Show diminished breath sounds at base. Positive rhonchi and crackles. ABDOMEN: Soft, obese, nontender to palpation. EXTREMITIES: Negative for clubbing, cyanosis. Positive edema. DERMATOLOGIC: No rashes. MUSCULOSKELETAL: No joint effusions. NEUROLOGIC: No change in exam. MEDICATIONS: The patient's medications have been reviewed. LABORATORY DATA: Currently pending. ASSESSMENT AND PLAN: 1. Acute hypoxemic respiratory failure, etiology is secondary to decompensated systolic/diastolic h eart failure/chronic obstructive pulmonary disease. The patient has been receiving Bumex drip, is o n Solu-Medrol, supplemental oxygen. The patient's urinary output has been adequate with over 3 lite rs in the last 24 hours. At this point we will continue current treatment plan. We will give Bumex drip again today, continue metolazone, monitor electrolytes closely. Continue supplemental oxygen, nebulizers, and steroids. We will follow up with pulmonary and cardiology for recommendations. 2. Nonoliguric acute kidney injury on top of chronic kidney disease stage IV, with previous baselin e creatinine around 2 mg/dL. Etiology of acute kidney injury is secondary to hemodynamics. We will continue to monitor renal function closely on diuretic therapy. If renal function should significa ntly decline, we will hold diuretics to enable fluid to mobilize. Otherwise, we will monitor. No i mmediate need for renal replacement therapy. 3. Acute decompensated diastolic/diastolic heart failure. As stated above, we will continue Bumex drip. Continue metolazone. Will follow up with cardiology. 4. Right ovarian cystic mass, concerning for possible neoplasm. No plans for surgery at this time until patient is more clinically stable. 5. Hypertension. Continue current blood pressure regimen. 6. Anemia. Continue to monitor hemoglobin and hematocrit levels. 7. Diabetes. Continue current insulin regimen. Follow up with endocrinology. 8. History of coronary artery disease. Continue medical management. 9. Chronic kidney disease stage IV secondary to diabetes and hypertension etiology. The patient is currently in acute kidney injury, stable. Continue to monitor. 10. Morbid obesity. Continue dietary modification. 11. Sleep apnea. Continue CPAP. 12. Dyslipidemia. Continue statin therapy. 13. Neuropathy. Continue Lyrica. 14. Gastrointestinal/deep vein thrombosis prophylaxis: Continue proton pump inhibitor and sequenti al leg squeezers, and Lovenox. Dictated By: CRISTA GAINES/BIRGIT Conf#: [id number] DID#: [id number]
[2016-06-29] MEDS: INSULIN ASPART [NOVOLOG] 3 ML PEN SC SCH ×7 (08:36→22:01)
[2016-06-29] MEDS: INSULIN GLARGINE [LANtus] 3 ML PEN SC SCH ×2 (08:37→22:02)
[2016-06-29] MEDS: FLUTICASONE 0.05% 16 GM NAS SPRAY NASAL SCH ×2 (08:41→22:03)
[2016-06-29] MEDS: METHYLPREDNISOLONE 125 MG INJ IV SCH (08:41)
[2016-06-29] MEDS: NITROGLYCERIN 0.4 MG/HR PATCH TRANSDERM SCH (08:42)
[2016-06-29] MEDS: METOLAZONE 2.5 MG TAB PO SCH (08:42)
[2016-06-29] MEDS: VALACYCLOVIR 500 MG TAB PO SCH ×2 (08:43→21:33)
[2016-06-29] MEDS: BETHANECHOL 25 MG TAB PO SCH ×3 (08:43→21:32)
[2016-06-29] MEDS: LINAGLIPTIN 5 MG TABLET PO SCH (08:43)
[2016-06-29] MEDS: NEBIVOLOL 5 MG TAB PO SCH (08:44)
[2016-06-29] MEDS: GABAPENTIN 300 MG CAP PO SCH ×3 (08:44→21:33)
[2016-06-29] MEDS: AMLODIPINE 10 MG TAB PO SCH (08:44)
[2016-06-29] MEDS: DOCUSATE SODIUM 100 MG CAP PO SCH ×2 (08:44→21:33)
[2016-06-29] MEDS: CAPSAICIN 0.025% 60 GM CR TOP SCH ×4 (08:45→22:02)
[2016-06-29] MEDS: METHYLDOPA 250 MG TAB PO SCH ×2 (08:45→21:33)
[2016-06-29] MEDS ORDERED: BUMETANIDE 12 MG in DEXTROSE 5% 72 ML IV SCH (09:00)
[2016-06-29 10:22] LABS: CREATININE 2.76 mg/dl (0.44-1.00)
[2016-06-29 10:23] LABS: CALCIUM 8.6 mg/dl (8.4-10.2)
[2016-06-29] MEDS ORDERED: BUMETANIDE 1 MG INJ IV SCH (10:30)
--- NOTE | 2016-06-29 10:32 | CONS ---
Date/Time of Note Date/Time of Note DATE: 06/29/16 TIME: 10:30 Assessment/Plan Assessment/Plan Chief Complaint/Hosp Course Acute on chronic diastolic heart failure: EF preserved. Still decompensated but improving. Accelerated HTN: BPs mostly controlled Ovarian mass: Being evaluated by heme/onc.Refusing surgery at this time Urinary retention: requiring martinez Acute on chronic renal failure: improved after obstruction resolved. Cr worse h/o CAD s/p CABG DM PVD s/p renal stent -decrease to bumex 2mg IV BID -hold metolazone -ASA, statin -continue amlodipine 10mg -hydralazine 25mg q8h -continue home nebivolol, methyldopa -will follow Problems: Consultation Date/Type/Reason Admit Date/Time Jun 09, 2016 at 12:22 Initial Consult Date 06/10/16 Type of Consultation: Cardiology 24 HR Interval Summary Free Text/Dictation No o/n events. Net negative ~2L again. Breathing improving. Exam/Review of Systems Vital Signs Vitals Vital Signs Date Time Temp Pulse Resp B/P Pulse Ox O2 Delivery O2 Flow Rate FiO2 06/29/16 08:32 71 06/29/16 08:22 91 5.0 06/29/16 08:19 23 Nasal Cannula 06/29/16 07:40 98.2 146/70 06/29/16 01:27 35 Intake and Output 06/28/16 06/28/16 06/29/16 15:00 23:00 07:00 Intake Total 900 ml 200 ml Output Total 1800 ml 1600 ml Balance -900 ml -1400 ml Exam Constitutional: alert, oriented Head: atraumatic, normocephalic Neck: jvd (9cm) Respiratory: crackles/rales, diminished breath sounds, No clear to auscultation Cardiovascular: edema (2+), regular rate and rhythm, No systolic murmur Gastrointestinal: soft Neurological: nl mental status, nl speech Results Result Diagram: 06/28/16 0555 06/29/16 0944 Results 24 hrs Laboratory Tests Test 06/28/16 12:10 06/28/16 17:51 06/28/16 20:09 06/29/16 08:18 Bedside Glucose 271 H 296 H 319 H 260 H Test 06/29/16 09:44 Anion Gap 16 Blood Urea Nitrogen 72 H Calcium Level 8.6 Carbon Dioxide Level 28 Chloride Level 100 Creatinine 2.76 H Glucose Level 231 #H Potassium Level 4.0 Sodium Level 140 Medications Medications Current Medications Gabapentin (Neurontin) 600 mg TID PO Last administered on 06/29/16 08:44; Admin Dose 600 MG; Start 06/09/16 at 21:00 Miscellaneous Medication (Bystolic) 20 mg DAILY PO Last administered on 08:44; Admin Dose 20 MG; Start 06/10/16 at 09:00 Pregabalin (Lyrica) 150 mg QHS PO Last administered on 06/28/16 20:47; Admin Dose 150 MG; Start 06/09/16 at 21:00 Valacyclovir HCl (Valtrex) 1,000 mg BID PO Last administered on 06/29/16 08:43 ; Admin Dose 1,000 MG; Start 06/09/16 at 21:00 Miscellaneous Information 1 ea NOTE XX ; Start 06/09/16 at 18:30 Glucose (Glutose) 15 gm Q15M PRN PO DECREASED GLUCOSE; Start 06/09/16 at 18:30 Glucose (Glutose) 22.5 gm Q15M PRN PO DECREASED GLUCOSE; Start 06/09/16 at 18: 30 Dextrose (D50w Syringe) 25 ml Q15M PRN IV DECREASED GLUCOSE; Start 06/09/16 at 18:30 Dextrose (D50w Syringe) 50 ml Q15M PRN IV DECREASED GLUCOSE; Start 06/09/16 at 18:30 Glucagon (Glucagen) 1 mg Q15M PRN IM DECREASED GLUCOSE; Start 06/09/16 at 18:30 Glucose (Glutose) 15 gm Q15M PRN BUCCAL DECREASED GLUCOSE; Start 06/09/16 at 18 :30 Amlodipine Besylate (Norvasc) 10 mg DAILY PO Last administered on 06/29/16 08: 44; Admin Dose 10 MG; Start 06/09/16 at 20:30 Hydromorphone HCl (Dilaudid) 0.5 mg Q4H PRN IV PAIN Last administered on 01:54; Admin Dose 0.5 MG; Start 06/10/16 at 02:30 Pantoprazole (Protonix Tab) 40 mg DAILY@06 PO Last administered on 06/29/16 05: 33; Admin Dose 40 MG; Start 06/11/16 at 06:00 Clonidine (Catapres) 0.2 mg Q6H PRN PO SBP above 160 Last administered on 10:22; Admin Dose 0.2 MG; Start 06/10/16 at 12:17 Hydralazine HCl (Apresoline) 10 mg Q4H PRN IV SBP >170 Last administered on 23:24; Admin Dose 10 MG; Start 06/10/16 at 15:00 Lorazepam (Ativan) 0.5 mg HS PO Last administered on 06/26/16 21:41; Admin Dose 0.5 MG; Start 06/11/16 at 22:00 Bethanechol Chloride (Urecholine) 25 mg TID PO Last administered on 06/29/16 08 :43; Admin Dose 25 MG; Start 06/13/16 at 13:00 Linagliptin (Tradjenta) 5 mg DAILY PO Last administered on 06/29/16 08:43; Admin Dose 5 MG; Start 06/16/16 at 09:00 Capsaicin (Theragen) 1 applic QID TOP Last administered on 06/29/16 08:45; Admin Dose 1 APPLIC; Start 06/15/16 at 21:00 Lidocaine (Lidocaine 5% Oint) 1 applic TID PRN TOP ITCHING/PAIN; Start at 15:30 Docusate Sodium (Colace) 100 mg BID PO Last administered on 06/29/16 08:44; Admin Dose 100 MG; Start 06/16/16 at 15:00 Bisacodyl (Dulcolax) 10 mg DAILY PRN PO CONSTIPATION Last administered on 20:44; Admin Dose 10 MG; Start 06/16/16 at 14:00 Guaifenesin/ Dextromethorphan (Robitussin Dm Liquid Cup) 10 ml Q4H PRN PO COUGH ; Start 06/17/16 at 17:30 Fluticasone Propionate (Flonase 0.05% Nasal) 1 spray BID NASAL Last administered on 06/29/16 08:41; Admin Dose 1 SPRAY; Start 06/19/16 at 09:00 Hydralazine HCl (Apresoline) 25 mg Q8 PO Last administered on 06/28/16 15:03; Admin Dose 25 MG; Start 06/20/16 at 14:00 Lisinopril (Zestril) 20 mg DAILY PO Last administered on 06/23/16 08:24; Admin Dose 20 MG; Start 06/22/16 at 09:00; Status Future Hold Atorvastatin Calcium (Lipitor) 40 mg HS PO Last administered on 06/28/16 20:44 ; Admin Dose 40 MG; Start 06/22/16 at 21:00 Nitroglycerin (Nitroglycerin 0.4 Mg/Hr) 1 patch DAILY TRANSDERM Last administered on 06/29/16 08:42; Admin Dose 1 PATCH; Start 06/22/16 at 11:30 Morphine Sulfate (morphine) 2 mg Q4H PRN IV pain Last administered on 06/25/16 01:58; Admin Dose 2 MG; Start 06/22/16 at 10:30 Methyldopa (Aldomet) 500 mg BID PO Last administered on 06/29/16 08:45; Admin Dose 500 MG; Start 06/26/16 at 09:00 Metolazone (Zaroxolyn) 2.5 mg DAILY PO Last administered on 06/29/16 08:42; Admin Dose 2.5 MG; Start 06/26/16 at 09:00 Insulin Glargine (Lantus) 32 unit BID@08,20 SC Last administered on 06/29/16 08 :37; Admin Dose 32 UNIT; Start 06/28/16 at 08:00 Methylprednisolone Sodium Succinate 60 mg 60 mg DAILY IV Last administered on 08:41; Admin Dose 60 MG; Start 06/28/16 at 11:30 Bumetanide/ Dextrose (Bumex/D5W) 120 ml @ 10 mls/hr Q24H IV ; Start 06/29/16 at 09:00 AMISHA NIETO Jun 29, 2016 10:32
[2016-06-29] MEDS: BUMETANIDE 2 MG in DEXTROSE 5% 17 ML IV SCH ×2 (13:35→21:35)
[2016-06-29] MEDS ORDERED: BUMETANIDE 12 MG in DEXTROSE 5% 72 ML IV ONE (18:30)
--- NOTE | 2016-06-29 18:32 | CONS ---
Date/Time of Note Date/Time of Note DATE: 06/29/16 TIME: 18:29 Assessment/Plan Assessment/Plan Chief Complaint/Hosp Course 1. A right ovarian cystic mass. Etiology is unclear, concerning for possible malignancy. PT IS DECLINING SURGERY AT PRESENT 2. Anemia. Continue to monitor hemoglobin and hematocrit levels. + component ACD OBSERVE FOR BLEEDING AND HEMOLYSIS SERVIN / NUMBNESS LUE- RESOLVED CT HEAD- NEG 3. Nonoliguric acute kidney injury on top of chronic kidney disease with a previous baseline renal function around 1.5 to 2 mg/dL. Etiology of acute kidney injury is possibly secondary to urinary retention, obstructive uropathy versus hemodynamics, possible cardiorenal syndrome. The patient's urinalysis shows findings of proteinuria but no pyuria, no hematuria, and a CT scan of the abdomen and pelvis showed no evidence of hydronephrosis. Plan at this point is to check a renal ultrasound. Will repeat UA with microanalysis. Will check urine electrolytes. Will continue supportive care, renally dose medications, avoid nephrotoxins, monitor renal function closely. Clinical albuminuria - PER NEPHROLOGY 4 Urinary retention. Underlying etiology is unclear. The patient is status post Flynn catheter placement with good urinary output. Seen by urology still unable to urinate on intermittent catheterizations URECHOLINE - DOSE INCREASED 5. Acute decompensated diastolic heart failure. The patient noted to have pulmonary congestion, lower extremity edema. The patient is status post Lasix; will continue- PER NEPHRO cardiology F-UP PT IS IV BUMEX AROUND THE CLOCK 6. History of coronary artery disease, status post coronary artery bypass graft. Continue current medical management. 7. Diabetes. Will continue Accu-Cheks, insulin sliding scale, continue Lantus. HB A1C- 8.1.will increase lantus 8. Chronic kidney disease stage IIIB/IV. Etiology is multifactorial secondary to diabetes, hypertension. The patient is currently in acute kidney injury as stated above. Continue medical management. 9. Morbid obesity. Continue dietary modification. 10. Dyslipidemia. Continue statin therapy. 11. Obstructive sleep apnea. Continue supplemental oxygen. Consider a pulmonary consult for evaluation. 12. Hypertension- POORLY CONTROLLED Continue current blood pressure regimen. Will adjust medications as needed. CARDIOLOGY F-UP 13. History of peripheral vascular disease. Continue current medical management. 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 SEVERE DJD/OA WITH CHRONIC PAIN 16. GI PROBLEMS- WITH ABD PAIN, DIARRHEA/ ALTERNATING WITH CONSTIPATION GI F-UP Problems: Consultation Date/Type/Reason Admit Date/Time Jun 09, 2016 at 12:22 Initial Consult Date 06/09/16 Type of Consultation: hemeonc 24 HR Interval Summary Free Text/Dictation all noted felling sl better sugar- up on steroids from pulmonary Exam/Review of Systems Vital Signs Vitals Vital Signs Date Time Temp Pulse Resp B/P Pulse Ox O2 Delivery O2 Flow Rate FiO2 06/29/16 16:26 81 06/29/16 15:53 134/62 06/29/16 15:50 97.0 83 90 06/29/16 14:29 5.0 06/29/16 14:28 Nasal Cannula 06/29/16 01:27 35 Intake and Output 06/28/16 06/28/16 06/29/16 15:00 23:00 07:00 Intake Total 900 ml 200 ml Output Total 1800 ml 1600 ml Balance -900 ml -1400 ml Exam HEENT: Head is normocephalic. NECK: Supple. HEART: Regular rate. LUNGS: Show diminished breath sounds at the base. Positive crackles. ABDOMEN: Soft, nontender to palpation, obese. EXTREMITIES: Negative for clubbing, cyanosis. Positive edema. DERMATOLOGIC: No rashes. MUSCULOSKELETAL: No joint effusions. NEUROLOGIC: No change in exam. Results Result Diagram: 06/28/16 0555 06/29/16 0944 Results 24 hrs Laboratory Tests Test 06/28/16 20:09 06/29/16 08:18 06/29/16 09:44 06/29/16 11:57 Bedside Glucose 319 H 260 H 271 H Anion Gap 16 Blood Urea Nitrogen 72 H Calcium Level 8.6 Carbon Dioxide Level 28 Chloride Level 100 Creatinine 2.76 H Glucose Level 231 #H Potassium Level 4.0 Sodium Level 140 Test 06/29/16 17:15 Bedside Glucose 334 H Medications Medications Current Medications Gabapentin (Neurontin) 600 mg TID PO Last administered on 06/29/16 12:02; Admin Dose 600 MG; Start 06/09/16 at 21:00 Miscellaneous Medication (Bystolic) 20 mg DAILY PO Last administered on 08:44; Admin Dose 20 MG; Start 06/10/16 at 09:00 Pregabalin (Lyrica) 150 mg QHS PO Last administered on 06/28/16 20:47; Admin Dose 150 MG; Start 06/09/16 at 21:00 Valacyclovir HCl (Valtrex) 1,000 mg BID PO Last administered on 06/29/16 08:43 ; Admin Dose 1,000 MG; Start 06/09/16 at 21:00 Miscellaneous Information 1 ea NOTE XX ; Start 06/09/16 at 18:30 Glucose (Glutose) 15 gm Q15M PRN PO DECREASED GLUCOSE; Start 06/09/16 at 18:30 Glucose (Glutose) 22.5 gm Q15M PRN PO DECREASED GLUCOSE; Start 06/09/16 at 18: 30 Dextrose (D50w Syringe) 25 ml Q15M PRN IV DECREASED GLUCOSE; Start 06/09/16 at 18:30 Dextrose (D50w Syringe) 50 ml Q15M PRN IV DECREASED GLUCOSE; Start 06/09/16 at 18:30 Glucagon (Glucagen) 1 mg Q15M PRN IM DECREASED GLUCOSE; Start 06/09/16 at 18:30 Glucose (Glutose) 15 gm Q15M PRN BUCCAL DECREASED GLUCOSE; Start 06/09/16 at 18 :30 Amlodipine Besylate (Norvasc) 10 mg DAILY PO Last administered on 06/29/16 08: 44; Admin Dose 10 MG; Start 06/09/16 at 20:30 Hydromorphone HCl (Dilaudid) 0.5 mg Q4H PRN IV PAIN Last administered on 01:54; Admin Dose 0.5 MG; Start 06/10/16 at 02:30 Pantoprazole (Protonix Tab) 40 mg DAILY@06 PO Last administered on 06/29/16 05: 33; Admin Dose 40 MG; Start 06/11/16 at 06:00 Clonidine (Catapres) 0.2 mg Q6H PRN PO SBP above 160 Last administered on 10:22; Admin Dose 0.2 MG; Start 06/10/16 at 12:17 Hydralazine HCl (Apresoline) 10 mg Q4H PRN IV SBP >170 Last administered on 23:24; Admin Dose 10 MG; Start 06/10/16 at 15:00 Lorazepam (Ativan) 0.5 mg HS PO Last administered on 06/26/16 21:41; Admin Dose 0.5 MG; Start 06/11/16 at 22:00 Bethanechol Chloride (Urecholine) 25 mg TID PO Last administered on 06/29/16 12 :02; Admin Dose 25 MG; Start 06/13/16 at 13:00 Linagliptin (Tradjenta) 5 mg DAILY PO Last administered on 06/29/16 08:43; Admin Dose 5 MG; Start 06/16/16 at 09:00 Capsaicin (Theragen) 1 applic QID TOP Last administered on 06/29/16 17:16; Admin Dose 1 APPLIC; Start 06/15/16 at 21:00 Lidocaine (Lidocaine 5% Oint) 1 applic TID PRN TOP ITCHING/PAIN; Start at 15:30 Docusate Sodium (Colace) 100 mg BID PO Last administered on 06/29/16 08:44; Admin Dose 100 MG; Start 06/16/16 at 15:00 Bisacodyl (Dulcolax) 10 mg DAILY PRN PO CONSTIPATION Last administered on 20:44; Admin Dose 10 MG; Start 06/16/16 at 14:00 Guaifenesin/ Dextromethorphan (Robitussin Dm Liquid Cup) 10 ml Q4H PRN PO COUGH ; Start 06/17/16 at 17:30 Fluticasone Propionate (Flonase 0.05% Nasal) 1 spray BID NASAL Last administered on 06/29/16 08:41; Admin Dose 1 SPRAY; Start 06/19/16 at 09:00 Hydralazine HCl (Apresoline) 25 mg Q8 PO Last administered on 06/29/16 13:35; Admin Dose 25 MG; Start 06/20/16 at 14:00 Lisinopril (Zestril) 20 mg DAILY PO Last administered on 06/23/16 08:24; Admin Dose 20 MG; Start 06/22/16 at 09:00; Status Future Hold Atorvastatin Calcium (Lipitor) 40 mg HS PO Last administered on 06/28/16 20:44 ; Admin Dose 40 MG; Start 06/22/16 at 21:00 Nitroglycerin (Nitroglycerin 0.4 Mg/Hr) 1 patch DAILY TRANSDERM Last administered on 06/29/16 08:42; Admin Dose 1 PATCH; Start 06/22/16 at 11:30 Morphine Sulfate (morphine) 2 mg Q4H PRN IV pain Last administered on 06/25/16 01:58; Admin Dose 2 MG; Start 06/22/16 at 10:30 Methyldopa (Aldomet) 500 mg BID PO Last administered on 06/29/16 08:45; Admin Dose 500 MG; Start 06/26/16 at 09:00 Methylprednisolone Sodium Succinate (Solu-Medrol) 60 mg DAILY IV Last administered on 06/29/16 08:41; Admin Dose 60 MG; Start 06/28/16 at 11:30 Insulin Glargine 40 unit 40 unit BID@08,20 SC ; Start 06/29/16 at 20:00; Status UNV Bumetanide/ Dextrose/Water (Bumex/D5W) 120 ml @ 10 mls/hr Q12H ONCE IV ; Start 06/29/16 at 18:30; Stop 06/30/16 at 06:29; Status UNV SHARLA SOUSA MD Jun 29, 2016 18:32
[2016-06-29] MEDS: LORAZEPAM 0.5 MG TAB PO SCH (21:00)
[2016-06-29] MEDS: ATORVASTATIN 40 MG TAB PO SCH (21:32)
[2016-06-29] MEDS: PREGABALIN 75 MG CAP PO SCH (21:41)
[2016-06-30] VITALS (13 sets, daily range): BP systolic 115–153; BP diastolic 54–75; PULSE 73–150; RESP 17–20
[2016-06-30] MEDS: BUMETANIDE 2 MG in DEXTROSE 5% 17 ML IV SCH (06:10)
[2016-06-30] MEDS: PANTOPRAZOLE (EC) 40 MG TAB PO SCH (06:11)
[2016-06-30] MEDS: ALBUTEROL/IPRATROPIUM (NEB) 3 ML AMP HHN SCH ×3 (07:42→19:42)
[2016-06-30 07:49] LABS: ADD SCAN DIFF NO
[2016-06-30 08:00] LABS: BASOPHILS % 0.1 % (0.0-2.0); EOSINOPHILS % 0.1 % (0.0-7.0); HEMATOCRIT 29.5 % (37.0-47.0); HEMOGLOBIN 9.2 g/dl (12.0-16.0); LYMPHOCYTES # 1.2 10^3/ul (0.8-2.9); MEAN CORPUSCULAR HEMOGLOBIN 31.8 pg (29.0-33.0); MEAN CORPUSCULAR HGB CONC 31.2 g/dl (32.0-37.0); MEAN CORPUSCULAR VOLUME 102.1 fl (82.0-101.0); MEAN PLATELET VOLUME 11.6 fl (7.4-10.4); MONOCYTES % 10.6 % (0.0-11.0); NEUTROPHILS % 74.5 % (39.0-77.0); NUCLEATED RED BLOOD CELLS% 0.2 /100WBC (0.0-0.0); PLATELET COUNT 258 10^3/UL (140-415); RED BLOOD COUNT 2.89 10^6/ul (4.20-5.40); RED CELL DISTRIBUTION WIDTH 15.3 % (11.5-14.5); WHITE BLOOD COUNT 9.4 10^3/ul (4.8-10.8)
[2016-06-30 08:27] LABS: POTASSIUM 3.8 mmol/L (3.5-5.1)
[2016-06-30 08:29] LABS: CREATININE 2.74 mg/dl (0.44-1.00)
[2016-06-30 08:30] LABS: CALCIUM 8.3 mg/dl (8.4-10.2); PHOSPHORUS 5.5 mg/dl (2.5-4.9)
--- NOTE | 2016-06-30 08:48 | PN ---
DATE: 06/30/2016 SUBJECTIVE: The patient was stable overnight, no acute events. Stable on 5 liters nasal cannula. No fevers, chills, nausea, vomiting. OBJECTIVE: VITAL SIGNS: Blood pressure 153/71, respiration 18, pulse 77, temperature 98.2. HEENT: Head is normocephalic. NECK: Supple. HEART: Regular rate. LUNGS: Show diminished breath sounds at the base. ABDOMEN: Soft, nontender to palpation. No rebound or guarding. EXTREMITIES: Negative for clubbing, cyanosis. Positive edema, improved. DERMATOLOGIC: No rashes. MUSCULOSKELETAL: No joint effusions. NEUROLOGIC: No change in exam. MEDICATIONS: The patient's medications have been reviewed. LABORATORY DATA: Currently pending. ASSESSMENT AND PLAN: 1. Acute hypoxemic respiratory failure, etiology is multifactorial secondary to decompensated heart failure, COPD. The patient is status post Bumex drip. Currently on IV Bumex. Diuretics were adju sted by Cardiology. The patient also remains on supplemental oxygen and Solu-Medrol. At this point , continue current treatment plan. Follow up with Pulmonary. Follow up with Cardiology recommendat ions. 2. Nonoliguric acute kidney injury on top of chronic kidney disease stage IV with previous baseline creatinine around 2 mg/dL. The etiology of acute kidney injury is secondary to hemodynamics/cardio renal syndrome. The patient's renal function has declined over the last 72 hours, likely due to diu retic therapy. The patient's diuretics were deescalated yesterday. At this point, will continue to monitor renal function closely. No immediate need for renal replacement therapy. 3. Acute decompensated diastolic heart failure. Patient is status post Bumex drip, currently on Bu elvis 2 mg IV b.i.d., diuretics being managed with cardiology. Will continue to monitor. 4. 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 The patient is refusing surgery at this odilia e. 5. Hypertension. Continue current blood pressure regimen. 6. Anemia. Continue to monitor hemoglobin and hematocrit levels. 7. Diabetes. The patient's glucose levels remain elevated. The patient is noncompliant with insuli n regimen. We will continue to monitor. 8. Coronary artery disease. Continue medical management. 9. Chronic kidney disease stage IV, secondary to diabetes and hypertension. The patient remains in acute kidney injury as stated above. Continue treatment plan. 10. Morbid obesity. Continue dietary modification. 11. Sleep apnea. Continue CPAP. 12. Dyslipidemia. Continue statin therapy. 13. Neuropathy. Continue Lyrica. 14. Gastrointestinal and deep venous thrombosis prophylaxis. Continue proton pump inhibitor and se quential leg squeezers and Lovenox. Dictated By: CRISTA GAINES/BIRGIT Conf#: [id number] DID#: [id number]
[2016-06-30] MEDS: INSULIN ASPART [NOVOLOG] 3 ML PEN SC SCH ×7 (09:08→22:05)
[2016-06-30] MEDS: LINAGLIPTIN 5 MG TABLET PO SCH (09:14)
[2016-06-30] MEDS: VALACYCLOVIR 500 MG TAB PO SCH ×2 (09:14→21:46)
[2016-06-30] MEDS: DOCUSATE SODIUM 100 MG CAP PO SCH ×2 (09:14→21:45)
[2016-06-30] MEDS: METHYLPREDNISOLONE 125 MG INJ IV SCH (09:14)
[2016-06-30] MEDS: GABAPENTIN 300 MG CAP PO SCH ×3 (09:14→21:46)
[2016-06-30] MEDS: NEBIVOLOL 5 MG TAB PO SCH (09:15)
[2016-06-30] MEDS: METHYLDOPA 250 MG TAB PO SCH ×2 (09:15→21:46)
[2016-06-30] MEDS: AMLODIPINE 10 MG TAB PO SCH (09:16)
[2016-06-30] MEDS: BETHANECHOL 25 MG TAB PO SCH ×3 (09:16→21:45)
[2016-06-30] MEDS: FLUTICASONE 0.05% 16 GM NAS SPRAY NASAL SCH ×2 (09:17→21:00)
[2016-06-30] MEDS: CAPSAICIN 0.025% 60 GM CR TOP SCH ×4 (09:24→21:47)
[2016-06-30] MEDS: INSULIN GLARGINE [LANtus] 3 ML PEN SC SCH ×2 (09:48→22:04)
--- NOTE | 2016-06-30 11:01 | CONS ---
Date/Time of Note Date/Time of Note DATE: 06/30/16 TIME: 10:56 Assessment/Plan Assessment/Plan Additional Assessment/Plan Assessment and recommendations; next 1. Patient admitted for urinary retention been discovered to have ovarian mass on CT imaging of the abdomen. Patient having refused surgery on account of her multiple underlying comorbidities. The patient actually may have made a reasonable choice. 2. CHF, diabetes, hypertension, severe COPD. 3. Patient responding well to Solu-Medrol. Change Solu-Medrol dosing to 20 mg IV twice daily from 60 mg daily dosing. Continue diuresis. Continue other supportive measures. Consultation Date/Type/Reason Admit Date/Time Jun 09, 2016 at 12:22 Initial Consult Date 06/10/16 Type of Consultation: Pulmonary 24 HR Interval Summary Free Text/Dictation Patient's condition is stable. Still complains of dyspnea on exertion. Denies any coughing wheezing sputum production chest pain. Denies any abdominal pain, nausea, vomiting. Complains of chronic lower extremity edema. General examination; elderly lady, currently in no distress awake and alert. Exam/Review of Systems Vital Signs Vitals Vital Signs Date Time Temp Pulse Resp B/P Pulse Ox O2 Delivery O2 Flow Rate FiO2 06/30/16 10:19 150 06/30/16 08:33 Nasal Cannula 5.0 06/30/16 07:42 96 06/30/16 07:42 20 06/30/16 07:27 98.2 153/71 06/29/16 01:27 35 Intake and Output 06/29/16 06/29/16 06/30/16 15:00 23:00 07:00 Intake Total 1022 ml 25 ml Output Total 810 ml 1800 ml Balance 212 ml -1775 ml Exam HEENT examination; supple neck, JVD difficult to see because of short neck. No thyromegaly. No neck masses. Pharynx is clear. Chest examination; diminished but clear breath sounds bilaterally. S1-S2 audible, no murmurs. Abdomen examination; protuberant. Nontender. Bowel sounds audible. Organomegaly difficult to palpate. Extremity examination; chronic nonpitting edema bilaterally in lower extremities. CHIEF VENDOR QUALITY examination; no focal deficit. Results Result Diagram: 06/30/16 0651 06/30/16 0651 Results 24 hrs Laboratory Tests Test 06/29/16 11:57 06/29/16 17:15 06/29/16 21:32 06/30/16 02:36 Bedside Glucose 271 H 334 H 373 H 446 *H Test 06/30/16 02:56 06/30/16 06:51 06/30/16 07:53 Bedside Glucose 438 *H 369 H Anion Gap 19 H Basophils # 0.0 Basophils % 0.1 Blood Urea Nitrogen 77 H Calcium Level 8.3 L Carbon Dioxide Level 27 Chloride Level 98 Creatinine 2.74 H Eosinophils # 0.0 Eosinophils % 0.1 Glucose Level 352 H Hematocrit 29.5 L Hemoglobin 9.2 L Lymphocytes # 1.2 Lymphocytes % 13.0 L Magnesium Level 2.0 Mean Corpuscular Hemoglobin 31.8 Mean Corpuscular Hemoglobin Concent 31.2 L Mean Corpuscular Volume 102.1 H Mean Platelet Volume 11.6 H Monocytes # 1.0 H Monocytes % 10.6 Neutrophils # 7.0 Neutrophils % 74.5 Nucleated Red Blood Cells # 0.0 Nucleated Red Blood Cells % 0.2 H Phosphorus Level 5.5 H Platelet Count 258 Potassium Level 3.8 Red Blood Count 2.89 L Red Cell Distribution Width 15.3 H Sodium Level 140 White Blood Count 9.4 # Medications Medications Current Medications Gabapentin (Neurontin) 600 mg TID PO Last administered on 06/30/16 09:14; Admin Dose 600 MG; Start 06/09/16 at 21:00 Pregabalin (Lyrica) 150 mg QHS PO Last administered on 06/29/16 21:41; Admin Dose 150 MG; Start 06/09/16 at 21:00 Valacyclovir HCl (Valtrex) 1,000 mg BID PO Last administered on 06/30/16 09:14 ; Admin Dose 1,000 MG; Start 06/09/16 at 21:00 Miscellaneous Information 1 ea NOTE XX ; Start 06/09/16 at 18:30 Glucose (Glutose) 15 gm Q15M PRN PO DECREASED GLUCOSE; Start 06/09/16 at 18:30 Glucose (Glutose) 22.5 gm Q15M PRN PO DECREASED GLUCOSE; Start 06/09/16 at 18: 30 Dextrose (D50w Syringe) 25 ml Q15M PRN IV DECREASED GLUCOSE; Start 06/09/16 at 18:30 Dextrose (D50w Syringe) 50 ml Q15M PRN IV DECREASED GLUCOSE; Start 06/09/16 at 18:30 Glucagon (Glucagen) 1 mg Q15M PRN IM DECREASED GLUCOSE; Start 06/09/16 at 18:30 Glucose (Glutose) 15 gm Q15M PRN BUCCAL DECREASED GLUCOSE; Start 06/09/16 at 18 :30 Amlodipine Besylate (Norvasc) 10 mg DAILY PO Last administered on 06/30/16 09: 16; Admin Dose 10 MG; Start 06/09/16 at 20:30 Hydromorphone HCl (Dilaudid) 0.5 mg Q4H PRN IV PAIN Last administered on 01:54; Admin Dose 0.5 MG; Start 06/10/16 at 02:30 Pantoprazole (Protonix Tab) 40 mg DAILY@06 PO Last administered on 06/30/16 06: 11; Admin Dose 40 MG; Start 06/11/16 at 06:00 Clonidine (Catapres) 0.2 mg Q6H PRN PO SBP above 160 Last administered on 10:22; Admin Dose 0.2 MG; Start 06/10/16 at 12:17 Hydralazine HCl (Apresoline) 10 mg Q4H PRN IV SBP >170 Last administered on 23:24; Admin Dose 10 MG; Start 06/10/16 at 15:00 Lorazepam (Ativan) 0.5 mg HS PO Last administered on 06/26/16 21:41; Admin Dose 0.5 MG; Start 06/11/16 at 22:00 Bethanechol Chloride (Urecholine) 25 mg TID PO Last administered on 06/30/16 09 :16; Admin Dose 25 MG; Start 06/13/16 at 13:00 Linagliptin (Tradjenta) 5 mg DAILY PO Last administered on 06/30/16 09:14; Admin Dose 5 MG; Start 06/16/16 at 09:00 Capsaicin (Theragen) 1 applic QID TOP Last administered on 06/30/16 09:24; Admin Dose 1 APPLIC; Start 06/15/16 at 21:00 Lidocaine (Lidocaine 5% Oint) 1 applic TID PRN TOP ITCHING/PAIN; Start at 15:30 Docusate Sodium (Colace) 100 mg BID PO Last administered on 06/30/16 09:14; Admin Dose 100 MG; Start 06/16/16 at 15:00 Bisacodyl (Dulcolax) 10 mg DAILY PRN PO CONSTIPATION Last administered on 20:44; Admin Dose 10 MG; Start 06/16/16 at 14:00 Guaifenesin/ Dextromethorphan (Robitussin Dm Liquid Cup) 10 ml Q4H PRN PO COUGH ; Start 06/17/16 at 17:30 Fluticasone Propionate (Flonase 0.05% Nasal) 1 spray BID NASAL Last administered on 06/30/16 09:17; Admin Dose 1 SPRAY; Start 06/19/16 at 09:00 Hydralazine HCl (Apresoline) 25 mg Q8 PO Last administered on 06/30/16 06:14; Admin Dose 25 MG; Start 06/20/16 at 14:00 Lisinopril (Zestril) 20 mg DAILY PO Last administered on 06/23/16 08:24; Admin Dose 20 MG; Start 06/22/16 at 09:00; Status Future Hold Atorvastatin Calcium (Lipitor) 40 mg HS PO Last administered on 06/29/16 21:32 ; Admin Dose 40 MG; Start 06/22/16 at 21:00 Nitroglycerin (Nitroglycerin 0.4 Mg/Hr) 1 patch DAILY TRANSDERM Last administered on 06/29/16 08:42; Admin Dose 1 PATCH; Start 06/22/16 at 11:30 Morphine Sulfate (morphine) 2 mg Q4H PRN IV pain Last administered on 06/25/16 01:58; Admin Dose 2 MG; Start 06/22/16 at 10:30 Methyldopa (Aldomet) 500 mg BID PO Last administered on 06/30/16 09:15; Admin Dose 500 MG; Start 06/26/16 at 09:00 Methylprednisolone Sodium Succinate (Solu-Medrol) 60 mg DAILY IV Last administered on 06/30/16 09:14; Admin Dose 60 MG; Start 06/28/16 at 11:30 Insulin Glargine (Lantus) 40 unit BID@08,20 SC Last administered on 06/30/16 09 :48; Admin Dose 40 UNIT; Start 06/29/16 at 20:00 Diltiazem HCl (Cardizem) 30 mg Q6 PO ; Start 06/30/16 at 12:00; Status JAYME FLORES Jun 30, 2016 11:01
[2016-06-30] MEDS ORDERED: DILTIAZEM 30 MG TAB PO SCH (12:00)
[2016-06-30] MEDS: NITROGLYCERIN 0.4 MG/HR PATCH TRANSDERM SCH (12:30)
--- NOTE | 2016-06-30 15:57 | CONS ---
Date/Time of Note Date/Time of Note DATE: 06/30/16 TIME: 15:51 Assessment/Plan Assessment/Plan Chief Complaint/Hosp Course Paroxysmal atrial fibrillation: appears to be a new diagnosis. Will rate control. CHADSVASC is 3, appropriate for anticoagulation if ok by heme/onc Acute on chronic diastolic heart failure: EF preserved. Approaching euvolemia Accelerated HTN: BPs mostly controlled Ovarian mass: Being evaluated by heme/onc.Refusing surgery at this time Urinary retention: requiring martinez Acute on chronic renal failure: improved after obstruction resolved. Cr stable h/o CAD s/p CABG DM PVD s/p renal stent -increase diltiazem to 60mg q6h for now -decrease to bumex 1 mg IV PO daily -hold hydralazine to allow room for CCB titration -hold nebivolol -ASA, statin -continue amlodipine 10mg -continue methyldopa -d/c home soon Problems: Consultation Date/Type/Reason Admit Date/Time Jun 09, 2016 at 12:22 Initial Consult Date 06/10/16 Type of Consultation: Cardiology 24 HR Interval Summary Free Text/Dictation This am pt converted to afib with RVR. Rates have been 110-130s. She is asymptomatic and would like to go home soon. She is upset with a prior RN and would like to speak with the charge nurse. Exam/Review of Systems Vital Signs Vitals Vital Signs Date Time Temp Pulse Resp B/P Pulse Ox O2 Delivery O2 Flow Rate FiO2 06/30/16 14:52 108 20 126/54 94 Nasal Cannula 06/30/16 11:58 97.8 06/30/16 08:33 5.0 06/29/16 01:27 35 Intake and Output 06/29/16 06/29/16 06/30/16 15:00 23:00 07:00 Intake Total 1022 ml 25 ml Output Total 810 ml 1800 ml Balance 212 ml -1775 ml Exam Constitutional: alert, oriented Psych: no complaints Head: atraumatic, normocephalic Neck: jvd (87cm) Respiratory: clear to auscultation, diminished breath sounds, No crackles/rales Cardiovascular: edema (2+), No regular rate and rhythm (IRIR, tachycardic) Gastrointestinal: non-tender, soft Neurological: nl mental status, nl speech Results Result Diagram: 06/30/16 0651 06/30/16 0651 Results 24 hrs Laboratory Tests Test 06/29/16 17:15 06/29/16 21:32 06/30/16 02:36 06/30/16 02:56 Bedside Glucose 334 H 373 H 446 *H 438 *H Test 06/30/16 06:51 06/30/16 07:53 06/30/16 12:01 Anion Gap 19 H Basophils # 0.0 Basophils % 0.1 Blood Urea Nitrogen 77 H Calcium Level 8.3 L Carbon Dioxide Level 27 Chloride Level 98 Creatinine 2.74 H Eosinophils # 0.0 Eosinophils % 0.1 Glucose Level 352 H Hematocrit 29.5 L Hemoglobin 9.2 L Lymphocytes # 1.2 Lymphocytes % 13.0 L Magnesium Level 2.0 Mean Corpuscular Hemoglobin 31.8 Mean Corpuscular Hemoglobin Concent 31.2 L Mean Corpuscular Volume 102.1 H Mean Platelet Volume 11.6 H Monocytes # 1.0 H Monocytes % 10.6 Neutrophils # 7.0 Neutrophils % 74.5 Nucleated Red Blood Cells # 0.0 Nucleated Red Blood Cells % 0.2 H Phosphorus Level 5.5 H Platelet Count 258 Potassium Level 3.8 Red Blood Count 2.89 L Red Cell Distribution Width 15.3 H Sodium Level 140 White Blood Count 9.4 # Bedside Glucose 369 H 270 H Medications Medications Current Medications Gabapentin (Neurontin) 600 mg TID PO Last administered on 06/30/16 12:31; Admin Dose 600 MG; Start 06/09/16 at 21:00 Pregabalin (Lyrica) 150 mg QHS PO Last administered on 06/29/16 21:41; Admin Dose 150 MG; Start 06/09/16 at 21:00 Valacyclovir HCl (Valtrex) 1,000 mg BID PO Last administered on 06/30/16 09:14 ; Admin Dose 1,000 MG; Start 06/09/16 at 21:00 Miscellaneous Information 1 ea NOTE XX ; Start 06/09/16 at 18:30 Glucose (Glutose) 15 gm Q15M PRN PO DECREASED GLUCOSE; Start 06/09/16 at 18:30 Glucose (Glutose) 22.5 gm Q15M PRN PO DECREASED GLUCOSE; Start 06/09/16 at 18: 30 Dextrose (D50w Syringe) 25 ml Q15M PRN IV DECREASED GLUCOSE; Start 06/09/16 at 18:30 Dextrose (D50w Syringe) 50 ml Q15M PRN IV DECREASED GLUCOSE; Start 06/09/16 at 18:30 Glucagon (Glucagen) 1 mg Q15M PRN IM DECREASED GLUCOSE; Start 06/09/16 at 18:30 Glucose (Glutose) 15 gm Q15M PRN BUCCAL DECREASED GLUCOSE; Start 06/09/16 at 18 :30 Amlodipine Besylate (Norvasc) 10 mg DAILY PO Last administered on 06/30/16 09: 16; Admin Dose 10 MG; Start 06/09/16 at 20:30 Hydromorphone HCl (Dilaudid) 0.5 mg Q4H PRN IV PAIN Last administered on 01:54; Admin Dose 0.5 MG; Start 06/10/16 at 02:30 Pantoprazole (Protonix Tab) 40 mg DAILY@06 PO Last administered on 06/30/16 06: 11; Admin Dose 40 MG; Start 06/11/16 at 06:00 Clonidine (Catapres) 0.2 mg Q6H PRN PO SBP above 160 Last administered on 10:22; Admin Dose 0.2 MG; Start 06/10/16 at 12:17 Hydralazine HCl (Apresoline) 10 mg Q4H PRN IV SBP >170 Last administered on 23:24; Admin Dose 10 MG; Start 06/10/16 at 15:00 Lorazepam (Ativan) 0.5 mg HS PO Last administered on 06/26/16 21:41; Admin Dose 0.5 MG; Start 06/11/16 at 22:00 Bethanechol Chloride (Urecholine) 25 mg TID PO Last administered on 06/30/16 12 :31; Admin Dose 25 MG; Start 06/13/16 at 13:00 Linagliptin (Tradjenta) 5 mg DAILY PO Last administered on 06/30/16 09:14; Admin Dose 5 MG; Start 06/16/16 at 09:00 Capsaicin (Theragen) 1 applic QID TOP Last administered on 06/30/16 12:31; Admin Dose 1 APPLIC; Start 06/15/16 at 21:00 Lidocaine (Lidocaine 5% Oint) 1 applic TID PRN TOP ITCHING/PAIN; Start at 15:30 Docusate Sodium (Colace) 100 mg BID PO Last administered on 06/30/16 09:14; Admin Dose 100 MG; Start 06/16/16 at 15:00 Bisacodyl (Dulcolax) 10 mg DAILY PRN PO CONSTIPATION Last administered on 20:44; Admin Dose 10 MG; Start 06/16/16 at 14:00 Guaifenesin/ Dextromethorphan (Robitussin Dm Liquid Cup) 10 ml Q4H PRN PO COUGH ; Start 06/17/16 at 17:30 Fluticasone Propionate (Flonase 0.05% Nasal) 1 spray BID NASAL Last administered on 06/30/16 09:17; Admin Dose 1 SPRAY; Start 06/19/16 at 09:00 Hydralazine HCl (Apresoline) 25 mg Q8 PO Last administered on 06/30/16 06:14; Admin Dose 25 MG; Start 06/20/16 at 14:00 Lisinopril (Zestril) 20 mg DAILY PO Last administered on 06/23/16 08:24; Admin Dose 20 MG; Start 06/22/16 at 09:00; Status Future Hold Atorvastatin Calcium (Lipitor) 40 mg HS PO Last administered on 06/29/16 21:32 ; Admin Dose 40 MG; Start 06/22/16 at 21:00 Nitroglycerin (Nitroglycerin 0.4 Mg/Hr) 1 patch DAILY TRANSDERM Last administered on 06/30/16 12:30; Admin Dose 1 PATCH; Start 06/22/16 at 11:30 Morphine Sulfate (morphine) 2 mg Q4H PRN IV pain Last administered on 06/25/16 01:58; Admin Dose 2 MG; Start 06/22/16 at 10:30 Methyldopa (Aldomet) 500 mg BID PO Last administered on 06/30/16 09:15; Admin Dose 500 MG; Start 06/26/16 at 09:00 Insulin Glargine (Lantus) 40 unit BID@08,20 SC Last administered on 06/30/16 09 :48; Admin Dose 40 UNIT; Start 06/29/16 at 20:00 Diltiazem HCl (Cardizem) 30 mg Q6 PO Last administered on 06/30/16t 12:32; Admin Dose 30 MG; Start 06/30/16 at 12:00 Methylprednisolone Sodium Succinate (Solu-Medrol) 20 mg Q12 IV ; Start 06/30/16 at 21:00 AMISHA NIETO Jun 30, 2016 15:57
[2016-06-30] MEDS: DILTIAZEM 60 MG TAB PO SCH ×2 (17:15→23:27)
--- NOTE | 2016-06-30 20:29 | RADRPT ---
Vent Rate: 118 bpm RR Interval: [address] Interval: 0 msec QRS Duration: 84 msec QT Interval: 330 msec QTC Interval: 462 msec P-R-T [place]: 0 - 55 - 88 degrees Atrial fibrillation with rapid ventricular response Abnormal ECG Electronically Signed By: Stevenson Mendez [id number]
[2016-06-30] MEDS: LORAZEPAM 0.5 MG TAB PO SCH (21:00)
[2016-06-30] MEDS: ATORVASTATIN 40 MG TAB PO SCH (21:45)
[2016-06-30] MEDS: PREGABALIN 75 MG CAP PO SCH (21:45)
[2016-06-30] MEDS: METHYLPREDNISOLONE 40 MG INJ IV SCH (21:46)
[2016-06-30] MEDS ORDERED: INSULIN ASPART [NOVOLOG] 3 ML PEN SC ONE (22:00)
--- NOTE | 2016-06-30 22:32 | CONS ---
Date/Time of Note Date/Time of Note DATE: 06/30/16 TIME: 22:31 Assessment/Plan Assessment/Plan Chief Complaint/Hosp Course 1. A right ovarian cystic mass. Etiology is unclear, concerning for possible malignancy. PT IS DECLINING SURGERY AT PRESENT 2. Anemia. Continue to monitor hemoglobin and hematocrit levels. + component ACD OBSERVE FOR BLEEDING AND HEMOLYSIS SERVIN / NUMBNESS LUE- RESOLVED CT HEAD- NEG 3. Nonoliguric acute kidney injury on top of chronic kidney disease with a previous baseline renal function around 1.5 to 2 mg/dL. Etiology of acute kidney injury is possibly secondary to urinary retention, obstructive uropathy versus hemodynamics, possible cardiorenal syndrome. The patient's urinalysis shows findings of proteinuria but no pyuria, no hematuria, and a CT scan of the abdomen and pelvis showed no evidence of hydronephrosis. Plan at this point is to check a renal ultrasound. Will repeat UA with microanalysis. Will check urine electrolytes. Will continue supportive care, renally dose medications, avoid nephrotoxins, monitor renal function closely. Clinical albuminuria - PER NEPHROLOGY 4 Urinary retention. Underlying etiology is unclear. The patient is status post Flynn catheter placement with good urinary output. Seen by urology still unable to urinate on intermittent catheterizations URECHOLINE - DOSE INCREASED 5. Acute decompensated diastolic heart failure. The patient noted to have pulmonary congestion, lower extremity edema. The patient is status post Lasix; will continue- PER NEPHRO cardiology F-UP PT IS IV BUMEX AROUND THE CLOCK 6. History of coronary artery disease, status post coronary artery bypass graft. Continue current medical management. 7. Diabetes. Will continue Accu-Cheks, insulin sliding scale, continue Lantus. HB A1C- 8.1.will increase lantus 8. Chronic kidney disease stage IIIB/IV. Etiology is multifactorial secondary to diabetes, hypertension. The patient is currently in acute kidney injury as stated above. Continue medical management. 9. Morbid obesity. Continue dietary modification. 10. Dyslipidemia. Continue statin therapy. 11. Obstructive sleep apnea. Continue supplemental oxygen. Consider a pulmonary consult for evaluation. 12. Hypertension- POORLY CONTROLLED Continue current blood pressure regimen. Will adjust medications as needed. CARDIOLOGY F-UP 13. History of peripheral vascular disease. Continue current medical management. 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 SEVERE DJD/OA WITH CHRONIC PAIN 16. GI PROBLEMS- WITH ABD PAIN, DIARRHEA/ ALTERNATING WITH CONSTIPATION GI F-UP Problems: Consultation Date/Type/Reason Admit Date/Time Jun 09, 2016 at 12:22 Initial Consult Date 06/09/16 Type of Consultation: [facility] Exam/Review of Systems Vital Signs Vitals Vital Signs Date Time Temp Pulse Resp B/P Pulse Ox O2 Delivery O2 Flow Rate FiO2 06/30/16 20:19 103 06/30/16 20:00 97.5 18 135/64 92 06/30/16 19:49 Nasal Cannula 5.0 06/29/16 01:27 35 Intake and Output 06/29/16 06/29/16 06/30/16 15:00 23:00 07:00 Intake Total 1022 ml 25 ml Output Total 810 ml 1800 ml Balance 212 ml -1775 ml Exam HEENT: Head is normocephalic. NECK: Supple. HEART: Regular rate. LUNGS: Showed diminished breath sounds at the base. ABDOMEN: Soft, nontender to palpation. No rebound or guarding. EXTREMITIES: Negative for clubbing or cyanosis. No edema. DERMATOLOGIC: No rashes. MUSCULOSKELETAL: Have no joint effusion. NEUROLOGIC: No change in exam. Results Result Diagram: 06/30/16 0651 06/30/16 0651 Results 24 hrs Laboratory Tests Test 06/30/16 02:36 06/30/16 02:56 06/30/16 06:51 06/30/16 07:53 Bedside Glucose 446 *H 438 *H 369 H Anion Gap 19 H Basophils # 0.0 Basophils % 0.1 Blood Urea Nitrogen 77 H Calcium Level 8.3 L Carbon Dioxide Level 27 Chloride Level 98 Creatinine 2.74 H Eosinophils # 0.0 Eosinophils % 0.1 Glucose Level 352 H Hematocrit 29.5 L Hemoglobin 9.2 L Lymphocytes # 1.2 Lymphocytes % 13.0 L Magnesium Level 2.0 Mean Corpuscular Hemoglobin 31.8 Mean Corpuscular Hemoglobin Concent 31.2 L Mean Corpuscular Volume 102.1 H Mean Platelet Volume 11.6 H Monocytes # 1.0 H Monocytes % 10.6 Neutrophils # 7.0 Neutrophils % 74.5 Nucleated Red Blood Cells # 0.0 Nucleated Red Blood Cells % 0.2 H Phosphorus Level 5.5 H Platelet Count 258 Potassium Level 3.8 Red Blood Count 2.89 L Red Cell Distribution Width 15.3 H Sodium Level 140 White Blood Count 9.4 # Test 06/30/16 12:01 06/30/16 16:59 06/30/16 21:44 Bedside Glucose 270 H 243 H 380 H Medications Medications Current Medications Gabapentin (Neurontin) 600 mg TID PO Last administered on 06/30/16 21:46; Admin Dose 600 MG; Start 06/09/16 at 21:00 Pregabalin (Lyrica) 150 mg QHS PO Last administered on 06/30/16 21:45; Admin Dose 150 MG; Start 06/09/16 at 21:00 Valacyclovir HCl (Valtrex) 1,000 mg BID PO Last administered on 06/30/16 21:46 ; Admin Dose 1,000 MG; Start 06/09/16 at 21:00 Miscellaneous Information 1 ea NOTE XX ; Start 06/09/16 at 18:30 Glucose (Glutose) 15 gm Q15M PRN PO DECREASED GLUCOSE; Start 06/09/16 at 18:30 Glucose (Glutose) 22.5 gm Q15M PRN PO DECREASED GLUCOSE; Start 06/09/16 at 18: 30 Dextrose (D50w Syringe) 25 ml Q15M PRN IV DECREASED GLUCOSE; Start 06/09/16 at 18:30 Dextrose (D50w Syringe) 50 ml Q15M PRN IV DECREASED GLUCOSE; Start 06/09/16 at 18:30 Glucagon (Glucagen) 1 mg Q15M PRN IM DECREASED GLUCOSE; Start 06/09/16 at 18:30 Glucose (Glutose) 15 gm Q15M PRN BUCCAL DECREASED GLUCOSE; Start 06/09/16 at 18 :30 Amlodipine Besylate (Norvasc) 10 mg DAILY PO Last administered on 06/30/16 09: 16; Admin Dose 10 MG; Start 06/09/16 at 20:30 Hydromorphone HCl (Dilaudid) 0.5 mg Q4H PRN IV PAIN Last administered on 01:54; Admin Dose 0.5 MG; Start 06/10/16 at 02:30 Pantoprazole (Protonix Tab) 40 mg DAILY@06 PO Last administered on 06/30/16 06: 11; Admin Dose 40 MG; Start 06/11/16 at 06:00 Clonidine (Catapres) 0.2 mg Q6H PRN PO SBP above 160 Last administered on 10:22; Admin Dose 0.2 MG; Start 06/10/16 at 12:17 Hydralazine HCl (Apresoline) 10 mg Q4H PRN IV SBP >170 Last administered on 23:24; Admin Dose 10 MG; Start 06/10/16 at 15:00 Lorazepam (Ativan) 0.5 mg HS PO Last administered on 06/26/16 21:41; Admin Dose 0.5 MG; Start 06/11/16 at 22:00 Bethanechol Chloride (Urecholine) 25 mg TID PO Last administered on 06/30/16 21 :45; Admin Dose 25 MG; Start 06/13/16 at 13:00 Linagliptin (Tradjenta) 5 mg DAILY PO Last administered on 06/30/16 09:14; Admin Dose 5 MG; Start 06/16/16 at 09:00 Capsaicin (Theragen) 1 applic QID TOP Last administered on 06/30/16 21:47; Admin Dose 1 APPLIC; Start 06/15/16 at 21:00 Lidocaine (Lidocaine 5% Oint) 1 applic TID PRN TOP ITCHING/PAIN; Start at 15:30 Docusate Sodium (Colace) 100 mg BID PO Last administered on 06/30/16 21:45; Admin Dose 100 MG; Start 06/16/16 at 15:00 Bisacodyl (Dulcolax) 10 mg DAILY PRN PO CONSTIPATION Last administered on 20:44; Admin Dose 10 MG; Start 06/16/16 at 14:00 Guaifenesin/ Dextromethorphan (Robitussin Dm Liquid Cup) 10 ml Q4H PRN PO COUGH ; Start 06/17/16 at 17:30 Fluticasone Propionate (Flonase 0.05% Nasal) 1 spray BID NASAL Last administered on 06/30/16 09:17; Admin Dose 1 SPRAY; Start 06/19/16 at 09:00 Lisinopril (Zestril) 20 mg DAILY PO Last administered on 06/23/16 08:24; Admin Dose 20 MG; Start 06/22/16 at 09:00; Status Future Hold Atorvastatin Calcium (Lipitor) 40 mg HS PO Last administered on 06/30/16 21:45 ; Admin Dose 40 MG; Start 06/22/16 at 21:00 Morphine Sulfate (morphine) 2 mg Q4H PRN IV pain Last administered on 06/25/16 01:58; Admin Dose 2 MG; Start 06/22/16 at 10:30 Methyldopa (Aldomet) 500 mg BID PO Last administered on 06/30/16 21:46; Admin Dose 500 MG; Start 06/26/16 at 09:00 Insulin Glargine (Lantus) 40 unit BID@08,20 SC Last administered on 06/30/16 22 :04; Admin Dose 40 UNIT; Start 06/29/16 at 20:00 Methylprednisolone Sodium Succinate (Solu-Medrol) 20 mg Q12 IV Last administered on 06/30/16 21:46; Admin Dose 20 MG; Start 06/30/16 at 21:00 Diltiazem HCl (Cardizem) 60 mg Q6 PO Last administered on 06/30/16 17:15; Admin Dose 60 MG; Start 06/30/16 at 18:00 Bumetanide (Bumex) 1 mg DAILY PO ; Start 07/01/16 at 09:00 SHARLA SOUSA MD Jun 30, 2016 22:32
[2016-07-01] VITALS (14 sets, daily range): BP systolic 114–150; BP diastolic 57–83; PULSE 81–130; RESP 15–20
[2016-07-01] MEDS: PANTOPRAZOLE (EC) 40 MG TAB PO SCH (05:59)
[2016-07-01] MEDS: DILTIAZEM 60 MG TAB PO SCH (06:00)
[2016-07-01] MEDS: ALBUTEROL/IPRATROPIUM (NEB) 3 ML AMP HHN SCH ×3 (08:02→21:24)
[2016-07-01] MEDS: INSULIN ASPART [NOVOLOG] 3 ML PEN SC SCH ×8 (08:11→20:28)
[2016-07-01] MEDS: INSULIN GLARGINE [LANtus] 3 ML PEN SC SCH ×2 (08:12→20:27)
[2016-07-01] MEDS ORDERED: BUMETANIDE 1 MG TAB PO SCH (09:00)
[2016-07-01] MEDS: DOCUSATE SODIUM 100 MG CAP PO SCH ×2 (09:00→23:09)
--- NOTE | 2016-07-01 09:04 | PN ---
DATE: 07/01/2016 SUBJECTIVE: The patient remains stable, continues to have audible wheezes and shortness of breath, but overall no acute events noted overnight. OBJECTIVE: VITAL SIGNS: Blood pressure 150/72, respirations 18, pulse 103, temperature 97.8. HEENT: Head is normocephalic. NECK: Supple. HEART: Regular rate. LUNGS: Show diminished breath sounds at the bases. ABDOMEN: Soft, nontender to palpation. No rebound or guarding. EXTREMITIES: Negative for clubbing, cyanosis. Positive edema. DERMATOLOGIC: No rashes. MUSCULOSKELETAL: No joint effusions. NEUROLOGIC: No change in exam. MEDICATIONS: The patient's medications have been reviewed. LABORATORY DATA: Currently pending. ASSESSMENT AND PLAN: 1. Acute hypoxemic respiratory failure secondary to chronic obstructive pulmonary disease, decompen sated congestive heart failure. The patient is clinically improving. Continue current medical rosa maria gement. Continue diuretic therapy. Continue nebulizers, steroids. Follow up with pulmonary and ca rdiology. 2. Nonoliguric acute kidney injury on top of chronic kidney disease, stage IV. Etiology of acute k idney injury is secondary to hemodynamics, cardiorenal syndrome. The patient's renal function has b een fluctuating over the last several days due to diuretics. Renal function, however, in the previo us 24 hours has been stable. At this point, continue current treatment plan, supportive care, renal ly dose medications. Diuretic therapy is being adjusted by cardiology. We will monitor closely. 3. Acute decompensated heart failure. The patient is clinically improving. Continue current diure tic regimen per cardiology. 4. 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 The patient is refusing surgery. 5. Hypertension. Continue current blood pressure regimen. 6. Anemia. Continue to monitor hemoglobin and hematocrit levels. We will give Epogen as needed. 7. Diabetes. The patient is currently noncompliant, is adjusting insulin regimen herself. We will continue to monitor. 8. Coronary artery disease. Continue medical management. 9. Chronic kidney disease, stage IV, secondary to diabetes and hypertension. The patient has acute kidney injury as stated above. Continue to monitor. 10. Morbid obesity. Continue dietary modification. 11. Sleep apnea. Continue CPAP. 12. Dyslipidemia. Continue statin therapy. 13. Neuropathy. Continue Lyrica. 14. Gastrointestinal and deep venous thrombosis prophylaxis. Continue proton pump inhibitor and Lo venox. Dictated By: CRISTA GAINES/BIRGIT Conf#: [id number] DID#: [id number]
--- NOTE | 2016-07-01 09:24 | CONS ---
Date/Time of Note Date/Time of Note DATE: 07/01/16 TIME: 09:20 Assessment/Plan Assessment/Plan Chief Complaint/Hosp Course Paroxysmal atrial fibrillation: appears to be a new diagnosis. Will rate control. CHADSVASC is 3, appropriate for anticoagulation. Pt agreeable. Acute on chronic diastolic heart failure: EF preserved. Approaching euvolemia Accelerated HTN: BPs mostly controlled Ovarian mass: Being evaluated by heme/onc.Refusing surgery at this time Urinary retention: requiring martinez Acute on chronic renal failure: improved after obstruction resolved. Cr stable h/o CAD s/p CABG DM PVD s/p renal stent -consolidate diltiazem to 240mg daily -start Eliquis 2.5mg BID -bumex 1 mg PO BID -hold hydralazine to allow room for CCB titration -hold nebivolol -ASA, statin -continue amlodipine 10mg -continue methyldopa -d/c home soon if cleared by PT Problems: Consultation Date/Type/Reason Admit Date/Time Jun 09, 2016 at 12:22 Initial Consult Date 06/10/16 Type of Consultation: Cardiology 24 HR Interval Summary Free Text/Dictation No o/n events. Has not been sleeping well and is very sleepy today. Wants to go home but has not ambulated much. Exam/Review of Systems Vital Signs Vitals Vital Signs Date Time Temp Pulse Resp B/P Pulse Ox O2 Delivery O2 Flow Rate FiO2 07/01/16 08:23 105 07/01/16 08:11 98.6 19 150/83 93 07/01/16 08:05 Nasal Cannula 5.0 07/01/16 01:23 40 Intake and Output 06/30/16 06/30/16 07/01/16 15:00 23:00 07:00 Intake Total 900 ml 240 ml Output Total 2200 ml 1200 ml Balance -1300 ml -960 ml Exam Constitutional: alert, oriented Psych: no complaints Head: atraumatic, normocephalic Neck: jvd (7cm) Respiratory: crackles/rales (mild) Cardiovascular: edema (2+), No regular rate and rhythm (IRIR) Gastrointestinal: non-tender, soft Neurological: nl mental status, nl speech Results Result Diagram: 06/30/16 0651 06/30/16 0651 Results 24 hrs Laboratory Tests Test 06/30/16 12:01 06/30/16 16:59 06/30/16 21:44 07/01/16 02:32 Bedside Glucose 270 H 243 H 380 H 419 *H Test 07/01/16 08:01 Bedside Glucose 311 H Medications Medications Current Medications Gabapentin (Neurontin) 600 mg TID PO Last administered on 06/30/16 21:46; Admin Dose 600 MG; Start 06/09/16 at 21:00 Pregabalin (Lyrica) 150 mg QHS PO Last administered on 06/30/16 21:45; Admin Dose 150 MG; Start 06/09/16 at 21:00 Valacyclovir HCl (Valtrex) 1,000 mg BID PO Last administered on 06/30/16 21:46 ; Admin Dose 1,000 MG; Start 06/09/16 at 21:00 Miscellaneous Information 1 ea NOTE XX ; Start 06/09/16 at 18:30 Glucose (Glutose) 15 gm Q15M PRN PO DECREASED GLUCOSE; Start 06/09/16 at 18:30 Glucose (Glutose) 22.5 gm Q15M PRN PO DECREASED GLUCOSE; Start 06/09/16 at 18: 30 Dextrose (D50w Syringe) 25 ml Q15M PRN IV DECREASED GLUCOSE; Start 06/09/16 at 18:30 Dextrose (D50w Syringe) 50 ml Q15M PRN IV DECREASED GLUCOSE; Start 06/09/16 at 18:30 Glucagon (Glucagen) 1 mg Q15M PRN IM DECREASED GLUCOSE; Start 06/09/16 at 18:30 Glucose (Glutose) 15 gm Q15M PRN BUCCAL DECREASED GLUCOSE; Start 06/09/16 at 18 :30 Amlodipine Besylate (Norvasc) 10 mg DAILY PO Last administered on 06/30/16 09: 16; Admin Dose 10 MG; Start 06/09/16 at 20:30 Hydromorphone HCl (Dilaudid) 0.5 mg Q4H PRN IV PAIN Last administered on 01:54; Admin Dose 0.5 MG; Start 06/10/16 at 02:30 Pantoprazole (Protonix Tab) 40 mg DAILY@06 PO Last administered on 07/01/16 05: 59; Admin Dose 40 MG; Start 06/11/16 at 06:00 Clonidine (Catapres) 0.2 mg Q6H PRN PO SBP above 160 Last administered on 10:22; Admin Dose 0.2 MG; Start 06/10/16 at 12:17 Hydralazine HCl (Apresoline) 10 mg Q4H PRN IV SBP >170 Last administered on 23:24; Admin Dose 10 MG; Start 06/10/16 at 15:00 Lorazepam (Ativan) 0.5 mg HS PO Last administered on 06/26/16 21:41; Admin Dose 0.5 MG; Start 06/11/16 at 22:00 Bethanechol Chloride (Urecholine) 25 mg TID PO Last administered on 06/30/16 21 :45; Admin Dose 25 MG; Start 06/13/16 at 13:00 Linagliptin (Tradjenta) 5 mg DAILY PO Last administered on 06/30/16 09:14; Admin Dose 5 MG; Start 06/16/16 at 09:00 Capsaicin (Theragen) 1 applic QID TOP Last administered on 06/30/16 21:47; Admin Dose 1 APPLIC; Start 06/15/16 at 21:00 Lidocaine (Lidocaine 5% Oint) 1 applic TID PRN TOP ITCHING/PAIN; Start at 15:30 Docusate Sodium (Colace) 100 mg BID PO Last administered on 06/30/16 21:45; Admin Dose 100 MG; Start 06/16/16 at 15:00 Bisacodyl (Dulcolax) 10 mg DAILY PRN PO CONSTIPATION Last administered on 20:44; Admin Dose 10 MG; Start 06/16/16 at 14:00 Guaifenesin/ Dextromethorphan (Robitussin Dm Liquid Cup) 10 ml Q4H PRN PO COUGH ; Start 06/17/16 at 17:30 Fluticasone Propionate (Flonase 0.05% Nasal) 1 spray BID NASAL Last administered on 06/30/16 09:17; Admin Dose 1 SPRAY; Start 06/19/16 at 09:00 Lisinopril (Zestril) 20 mg DAILY PO Last administered on 06/23/16 08:24; Admin Dose 20 MG; Start 06/22/16 at 09:00; Status Future Hold Atorvastatin Calcium (Lipitor) 40 mg HS PO Last administered on 06/30/16 21:45 ; Admin Dose 40 MG; Start 06/22/16 at 21:00 Morphine Sulfate (morphine) 2 mg Q4H PRN IV pain Last administered on 06/25/16 01:58; Admin Dose 2 MG; Start 06/22/16 at 10:30 Methyldopa (Aldomet) 500 mg BID PO Last administered on 06/30/16 21:46; Admin Dose 500 MG; Start 06/26/16 at 09:00 Insulin Glargine (Lantus) 40 unit BID@08,20 SC Last administered on 07/01/16 08 :12; Admin Dose 40 UNIT; Start 06/29/16 at 20:00 Methylprednisolone Sodium Succinate (Solu-Medrol) 20 mg Q12 IV Last administered on 06/30/16 21:46; Admin Dose 20 MG; Start 06/30/16 at 21:00 Bumetanide (Bumex) 1 mg DAILY PO ; Start 07/01/16 at 09:00 Diltiazem HCl (Cardizem Cd) 240 mg DAILY PO ; Start 07/01/16 at 12:00; Status AMISHA CORRALES Jul 01, 2016 09:24
[2016-07-01] MEDS: METHYLDOPA 250 MG TAB PO SCH ×2 (09:35→23:10)
[2016-07-01] MEDS: LINAGLIPTIN 5 MG TABLET PO SCH (09:35)
[2016-07-01] MEDS: VALACYCLOVIR 500 MG TAB PO SCH ×2 (09:36→23:07)
[2016-07-01] MEDS: AMLODIPINE 10 MG TAB PO SCH (09:36)
[2016-07-01] MEDS: BETHANECHOL 25 MG TAB PO SCH ×3 (09:36→23:07)
[2016-07-01] MEDS: BUMETANIDE 1 MG TAB PO SCH ×2 (09:36→23:08)
[2016-07-01] MEDS: FLUTICASONE 0.05% 16 GM NAS SPRAY NASAL SCH ×2 (09:36→20:22)
[2016-07-01] MEDS: GABAPENTIN 300 MG CAP PO SCH ×3 (09:36→23:07)
[2016-07-01] MEDS: CAPSAICIN 0.025% 60 GM CR TOP SCH ×4 (09:37→20:22)
[2016-07-01 09:56] LABS: ADD SCAN DIFF NO
[2016-07-01 10:12] LABS: POTASSIUM 4.3 mmol/L (3.5-5.1)
[2016-07-01 10:15] LABS: CREATININE 2.47 mg/dl (0.44-1.00)
[2016-07-01 10:16] LABS: CALCIUM 8.4 mg/dl (8.4-10.2); PHOSPHORUS 5.9 mg/dl (2.5-4.9)
[2016-07-01 10:25] LABS: BASOPHILS % 0.1 % (0.0-2.0); HEMATOCRIT 30.3 % (37.0-47.0); HEMOGLOBIN 9.6 g/dl (12.0-16.0); LYMPHOCYTES % 10.4 % (15.0-51.0); MEAN CORPUSCULAR HEMOGLOBIN 32.1 pg (29.0-33.0); MEAN CORPUSCULAR HGB CONC 31.7 g/dl (32.0-37.0); MEAN CORPUSCULAR VOLUME 101.3 fl (82.0-101.0); MEAN PLATELET VOLUME 11.6 fl (7.4-10.4); MONOCYTE # 0.6 10^3/ul (0.3-0.9); MONOCYTES % 5.6 % (0.0-11.0); NEUTROPHILS % 82.5 % (39.0-77.0); NUCLEATED RED BLOOD CELLS% 0.2 /100WBC (0.0-0.0); PLATELET COUNT 250 10^3/UL (140-415); RED BLOOD COUNT 2.99 10^6/ul (4.20-5.40); RED CELL DISTRIBUTION WIDTH 15.3 % (11.5-14.5); WHITE BLOOD COUNT 9.7 10^3/ul (4.8-10.8)
[2016-07-01] MEDS: METHYLPREDNISOLONE 40 MG INJ IV SCH (11:40)
[2016-07-01] MEDS: APIXABAN 5 MG TABLET PO SCH ×2 (11:41→23:07)
[2016-07-01] MEDS: DILTIAZEM (CD) 240 MG CAP PO SCH (12:30)
--- NOTE | 2016-07-01 12:30 | CONS ---
Date/Time of Note Date/Time of Note DATE: 07/01/16 TIME: 12:27 Assessment/Plan Assessment/Plan Additional Assessment/Plan Assessment and recommendations; next 1. Patient admitted for urinary retention discovered to have a right ovarian mass on CT of the abdomen. 2. History of CHF, renal insufficiency. 3. History of severe COPD. 4. Hypothyroidism. Continue current treatment. Continue Solu-Medrol at current dosing which is 20 mg IV every 12 hours. Patient will need to have home oxygen. Patient at this point has declined any abdominal surgery for evaluation of ovarian mass. Consultation Date/Type/Reason Admit Date/Time Jun 09, 2016 at 12:22 Initial Consult Date 06/10/16 Type of Consultation: Pulmonary 24 HR Interval Summary Free Text/Dictation Patient condition stable. According to her shortness of breath slightly improved. Denies any wheezing, chest pain. Any sputum production. General exam; elderly lady, currently in no distress, sitting in a chair by bedside. Awake and alert. Exam/Review of Systems Vital Signs Vitals Vital Signs Date Time Temp Pulse Resp B/P Pulse Ox O2 Delivery O2 Flow Rate FiO2 07/01/16 12:09 83 07/01/16 11:45 98.0 17 133/63 97 07/01/16 08:05 Nasal Cannula 5.0 07/01/16 01:23 40 Intake and Output 06/30/16 06/30/16 07/01/16 15:00 23:00 07:00 Intake Total 900 ml 240 ml Output Total 2200 ml 1200 ml Balance -1300 ml -960 ml Exam HEENT examination; supple neck, no JVD. No lymphadenopathy. Midline trachea. Pharynx is clear. Fair dentition. Chest examination; diminished but clear breath sounds bilaterally. S1-S2 audible, no murmurs. Regular rhythm. Abdomen examination; soft, protuberant. Nontender. Bowel sounds audible. Extremity exam is; nonpitting 2+ lower extremity edema. [employer] examination; no focal deficit. Results Result Diagram: 07/01/1620 07/01/16 0920 Results 24 hrs Laboratory Tests Test 06/30/16 16:59 06/30/16 21:44 07/01/16 02:32 07/01/16 08:01 Bedside Glucose 243 H 380 H 419 *H 311 H Test 07/01/16 09:20 07/01/16 11:46 Anion Gap 16 Basophils # 0.0 Basophils % 0.1 Blood Urea Nitrogen 80 H Calcium Level 8.4 Carbon Dioxide Level 27 Chloride Level 101 Creatinine 2.47 H Eosinophils # 0.0 Eosinophils % 0.0 Glucose Level 314 H Hematocrit 30.3 L Hemoglobin 9.6 L Lymphocytes # 1.0 Lymphocytes % 10.4 L Magnesium Level 2.0 Mean Corpuscular Hemoglobin 32.1 Mean Corpuscular Hemoglobin Concent 31.7 L Mean Corpuscular Volume 101.3 H Mean Platelet Volume 11.6 H Monocytes # 0.6 Monocytes % 5.6 Neutrophils # 8.0 H Neutrophils % 82.5 H Nucleated Red Blood Cells # 0.0 Nucleated Red Blood Cells % 0.2 H Phosphorus Level 5.9 H Platelet Count 250 Potassium Level 4.3 Red Blood Count 2.99 L Red Cell Distribution Width 15.3 H Sodium Level 140 White Blood Count 9.7 Bedside Glucose 391 H Medications Medications Current Medications Gabapentin (Neurontin) 600 mg TID PO Last administered on 07/01/16 09:36; Admin Dose 600 MG; Start 06/09/16 at 21:00 Pregabalin (Lyrica) 150 mg QHS PO Last administered on 06/30/16 21:45; Admin Dose 150 MG; Start 06/09/16 at 21:00 Valacyclovir HCl (Valtrex) 1,000 mg BID PO Last administered on 07/01/16 09:36 ; Admin Dose 1,000 MG; Start 06/09/16 at 21:00 Miscellaneous Information 1 ea NOTE XX ; Start 06/09/16 at 18:30 Glucose (Glutose) 15 gm Q15M PRN PO DECREASED GLUCOSE; Start 06/09/16 at 18:30 Glucose (Glutose) 22.5 gm Q15M PRN PO DECREASED GLUCOSE; Start 06/09/16 at 18: 30 Dextrose (D50w Syringe) 25 ml Q15M PRN IV DECREASED GLUCOSE; Start 06/09/16 at 18:30 Dextrose (D50w Syringe) 50 ml Q15M PRN IV DECREASED GLUCOSE; Start 06/09/16 at 18:30 Glucagon (Glucagen) 1 mg Q15M PRN IM DECREASED GLUCOSE; Start 06/09/16 at 18:30 Glucose (Glutose) 15 gm Q15M PRN BUCCAL DECREASED GLUCOSE; Start 06/09/16 at 18 :30 Amlodipine Besylate (Norvasc) 10 mg DAILY PO Last administered on 07/01/16 09: 36; Admin Dose 10 MG; Start 06/09/16 at 20:30 Hydromorphone HCl (Dilaudid) 0.5 mg Q4H PRN IV PAIN Last administered on 01:54; Admin Dose 0.5 MG; Start 06/10/16 at 02:30 Pantoprazole (Protonix Tab) 40 mg DAILY@06 PO Last administered on 07/01/16 05: 59; Admin Dose 40 MG; Start 06/11/16 at 06:00 Clonidine (Catapres) 0.2 mg Q6H PRN PO SBP above 160 Last administered on 10:22; Admin Dose 0.2 MG; Start 06/10/16 at 12:17 Hydralazine HCl (Apresoline) 10 mg Q4H PRN IV SBP >170 Last administered on 23:24; Admin Dose 10 MG; Start 06/10/16 at 15:00 Lorazepam (Ativan) 0.5 mg HS PO Last administered on 06/26/16 21:41; Admin Dose 0.5 MG; Start 06/11/16 at 22:00 Bethanechol Chloride (Urecholine) 25 mg TID PO Last administered on 07/01/16 09 :36; Admin Dose 25 MG; Start 06/13/16 at 13:00 Linagliptin (Tradjenta) 5 mg DAILY PO Last administered on 07/01/16 09:35; Admin Dose 5 MG; Start 06/16/16 at 09:00 Capsaicin (Theragen) 1 applic QID TOP Last administered on 07/01/16 09:37; Admin Dose 1 APPLIC; Start 06/15/16 at 21:00 Lidocaine (Lidocaine 5% Oint) 1 applic TID PRN TOP ITCHING/PAIN; Start at 15:30 Docusate Sodium (Colace) 100 mg BID PO Last administered on 06/30/16 21:45; Admin Dose 100 MG; Start 06/16/16 at 15:00 Bisacodyl (Dulcolax) 10 mg DAILY PRN PO CONSTIPATION Last administered on 20:44; Admin Dose 10 MG; Start 06/16/16 at 14:00 Guaifenesin/ Dextromethorphan (Robitussin Dm Liquid Cup) 10 ml Q4H PRN PO COUGH ; Start 06/17/16 at 17:30 Fluticasone Propionate (Flonase 0.05% Nasal) 1 spray BID NASAL Last administered on 07/01/16 09:36; Admin Dose 1 SPRAY; Start 06/19/16 at 09:00 Lisinopril (Zestril) 20 mg DAILY PO Last administered on 06/23/16 08:24; Admin Dose 20 MG; Start 06/22/16 at 09:00; Status Future Hold Atorvastatin Calcium (Lipitor) 40 mg HS PO Last administered on 06/30/16 21:45 ; Admin Dose 40 MG; Start 06/22/16 at 21:00 Morphine Sulfate (morphine) 2 mg Q4H PRN IV pain Last administered on 06/25/16 01:58; Admin Dose 2 MG; Start 06/22/16 at 10:30 Methyldopa (Aldomet) 500 mg BID PO Last administered on 07/01/16 09:35; Admin Dose 500 MG; Start 06/26/16 at 09:00 Insulin Glargine (Lantus) 40 unit BID@08,20 SC Last administered on 07/01/16 08 :12; Admin Dose 40 UNIT; Start 06/29/16 at 20:00 Methylprednisolone Sodium Succinate (Solu-Medrol) 20 mg Q12 IV Last administered on 07/01/16 11:40; Admin Dose 20 MG; Start 06/30/16 at 21:00 Diltiazem HCl (Cardizem Cd) 240 mg DAILY PO ; Start 07/01/16 at 12:00 Bumetanide (Bumex) 1 mg BID PO Last administered on 07/01/16 09:36; Admin Dose 1 MG; Start 07/01/16 at 09:30 Apixaban (Eliquis) 2.5 mg BID PO Last administered on 07/01/16 11:41; Admin Dose 2.5 MG; Start 07/01/16 at 09:30 JAYME POP 8, 2017 12:30
[2016-07-01] MEDS ORDERED: INSULIN ASPART [NOVOLOG] 3 ML PEN SC ONE ×2 (17:00→21:30)
[2016-07-01] MEDS ORDERED: INSULIN GLARGINE [LANtus] 3 ML PEN SC ONE (17:00)
[2016-07-01] MEDS ORDERED: INSULIN ASPART [NOVOLOG] 3 ML PEN SC STA (19:12)
--- NOTE | 2016-07-01 21:47 | CONS ---
Date/Time of Note Date/Time of Note DATE: 07/01/16 TIME: 21:46 Assessment/Plan Assessment/Plan Chief Complaint/Hosp Course 1. A right ovarian cystic mass. Etiology is unclear, concerning for possible malignancy. PT IS DECLINING SURGERY AT PRESENT 2. Anemia. Continue to monitor hemoglobin and hematocrit levels. + component ACD OBSERVE FOR BLEEDING AND HEMOLYSIS SERVIN / NUMBNESS LUE- RESOLVED CT HEAD- NEG 3. Nonoliguric acute kidney injury on top of chronic kidney disease with a previous baseline renal function around 1.5 to 2 mg/dL. Etiology of acute kidney injury is possibly secondary to urinary retention, obstructive uropathy versus hemodynamics, possible cardiorenal syndrome. The patient's urinalysis shows findings of proteinuria but no pyuria, no hematuria, and a CT scan of the abdomen and pelvis showed no evidence of hydronephrosis. Plan at this point is to check a renal ultrasound. Will repeat UA with microanalysis. Will check urine electrolytes. Will continue supportive care, renally dose medications, avoid nephrotoxins, monitor renal function closely. Clinical albuminuria - PER NEPHROLOGY 4 Urinary retention. Underlying etiology is unclear. The patient is status post Flynn catheter placement with good urinary output. Seen by urology still unable to urinate on intermittent catheterizations URECHOLINE - DOSE INCREASED 5. Acute decompensated diastolic heart failure. The patient noted to have pulmonary congestion, lower extremity edema. The patient is status post Lasix; will continue- PER NEPHRO cardiology F-UP PT IS IV BUMEX AROUND THE CLOCK 6. History of coronary artery disease, status post coronary artery bypass graft. Continue current medical management. 7. Diabetes. Will continue Accu-Cheks, insulin sliding scale, continue Lantus. HB A1C- 8.1.will increase lantus 8. Chronic kidney disease stage IIIB/IV. Etiology is multifactorial secondary to diabetes, hypertension. The patient is currently in acute kidney injury as stated above. Continue medical management. 9. Morbid obesity. Continue dietary modification. 10. Dyslipidemia. Continue statin therapy. 11. Obstructive sleep apnea. Continue supplemental oxygen. Consider a pulmonary consult for evaluation. 12. Hypertension- POORLY CONTROLLED Continue current blood pressure regimen. Will adjust medications as needed. CARDIOLOGY F-UP 13. History of peripheral vascular disease. Continue current medical management. 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 SEVERE DJD/OA WITH CHRONIC PAIN 16. GI PROBLEMS- WITH ABD PAIN, DIARRHEA/ ALTERNATING WITH CONSTIPATION GI F-UP Problems: Consultation Date/Type/Reason Admit Date/Time Jun 09, 2016 at 12:22 Initial Consult Date 06/09/16 [facility] Ex[facility]/Review of Systems Vital Signs Vitals Vital Signs Date Time Temp Pulse Resp B/P Pulse Ox O2 Delivery O2 Flow Rate FiO2 07/01/16 21:25 84 20 92 Nasal Cannula 5.0 07/01/16 18:47 98.2 114/57 07/01/16 01:23 40 Intake and Output 06/30/16 06/30/16 07/01/16 15:00 23:00 07:00 Intake Total 900 ml 240 ml Output Total 2200 ml 1200 ml Balance -1300 ml -960 ml Exam HEENT: Head is normocephalic. NECK: Supple. HEART: Regular rate. LUNGS: Showed diminished breath sounds at the base. ABDOMEN: Soft, nontender to palpation. No rebound or guarding. EXTREMITIES: Negative for clubbing or cyanosis. No edema. DERMATOLOGIC: No rashes. MUSCULOSKELETAL: Have no joint effusion. NEUROLOGIC: No change in exam. Results Result Diagram: 07/01/16 0920 07/01/16 1655 Results 24 hrs Laboratory Tests Test 07/01/16 02:32 07/01/16 08:01 07/01/16 09:20 07/01/16 11:46 Bedside Glucose 419 *H 311 H 391 H Anion Gap 16 Basophils # 0.0 Basophils % 0.1 Blood Urea Nitrogen 80 H Calcium Level 8.4 Carbon Dioxide Level 27 Chloride Level 101 Creatinine 2.47 H Eosinophils # 0.0 Eosinophils % 0.0 Glucose Level 314 H Hematocrit 30.3 L Hemoglobin 9.6 L Lymphocytes # 1.0 Lymphocytes % 10.4 L Magnesium Level 2.0 Mean Corpuscular Hemoglobin 32.1 Mean Corpuscular Hemoglobin Concent 31.7 L Mean Corpuscular Volume 101.3 H Mean Platelet Volume 11.6 H Monocytes # 0.6 Monocytes % 5.6 Neutrophils # 8.0 H Neutrophils % 82.5 H Nucleated Red Blood Cells # 0.0 Nucleated Red Blood Cells % 0.2 H Phosphorus Level 5.9 H Platelet Count 250 Potassium Level 4.3 Red Blood Count 2.99 L Red Cell Distribution Width 15.3 H Sodium Level 140 White Blood Count 9.7 Test 07/01/16 16:29 07/01/16 16:55 07/01/16 17:18 07/01/16 18:26 Bedside Glucose 477 *H 453 *H 422 *H Glucose Level 478 #*H Test 07/01/16 20:20 07/01/16 21:35 Bedside Glucose 372 H 321 H Medications Medications Current Medications Gabapentin (Neurontin) 600 mg TID PO Last administered on 07/01/16 12:31; Admin Dose 600 MG; Start 06/09/16 at 21:00 Pregabalin (Lyrica) 150 mg QHS PO Last administered on 06/30/16 21:45; Admin Dose 150 MG; Start 06/09/16 at 21:00 Valacyclovir HCl (Valtrex) 1,000 mg BID PO Last administered on 07/01/16 09:36 ; Admin Dose 1,000 MG; Start 06/09/16 at 21:00 Miscellaneous Information 1 ea NOTE XX ; Start 06/09/16 at 18:30 Glucose (Glutose) 15 gm Q15M PRN PO DECREASED GLUCOSE; Start 06/09/16 at 18:30 Glucose (Glutose) 22.5 gm Q15M PRN PO DECREASED GLUCOSE; Start 06/09/16 at 18: 30 Dextrose (D50w Syringe) 25 ml Q15M PRN IV DECREASED GLUCOSE; Start 06/09/16 at 18:30 Dextrose (D50w Syringe) 50 ml Q15M PRN IV DECREASED GLUCOSE; Start 06/09/16 at 18:30 Glucagon (Glucagen) 1 mg Q15M PRN IM DECREASED GLUCOSE; Start 06/09/16 at 18:30 Glucose (Glutose) 15 gm Q15M PRN BUCCAL DECREASED GLUCOSE; Start 06/09/16 at 18 :30 Amlodipine Besylate (Norvasc) 10 mg DAILY PO Last administered on 07/01/16 09: 36; Admin Dose 10 MG; Start 06/09/16 at 20:30 Hydromorphone HCl (Dilaudid) 0.5 mg Q4H PRN IV PAIN Last administered on 01:54; Admin Dose 0.5 MG; Start 06/10/16 at 02:30 Pantoprazole (Protonix Tab) 40 mg DAILY@06 PO Last administered on 07/01/16 05: 59; Admin Dose 40 MG; Start 06/11/16 at 06:00 Clonidine (Catapres) 0.2 mg Q6H PRN PO SBP above 160 Last administered on 10:22; Admin Dose 0.2 MG; Start 06/10/16 at 12:17 Hydralazine HCl (Apresoline) 10 mg Q4H PRN IV SBP >170 Last administered on 23:24; Admin Dose 10 MG; Start 06/10/16 at 15:00 Lorazepam (Ativan) 0.5 mg HS PO Last administered on 06/26/16 21:41; Admin Dose 0.5 MG; Start 06/11/16 at 22:00 Bethanechol Chloride (Urecholine) 25 mg TID PO Last administered on 07/01/16 12 :31; Admin Dose 25 MG; Start 06/13/16 at 13:00 Linagliptin (Tradjenta) 5 mg DAILY PO Last administered on 07/01/16 09:35; Admin Dose 5 MG; Start 06/16/16 at 09:00 Capsaicin (Theragen) 1 applic QID TOP Last administered on 07/01/16 20:22; Admin Dose 1 APPLIC; Start 06/15/16 at 21:00 Lidocaine (Lidocaine 5% Oint) 1 applic TID PRN TOP ITCHING/PAIN; Start at 15:30 Docusate Sodium (Colace) 100 mg BID PO Last administered on 06/30/16 21:45; Admin Dose 100 MG; Start 06/16/16 at 15:00 Bisacodyl (Dulcolax) 10 mg DAILY PRN PO CONSTIPATION Last administered on 20:44; Admin Dose 10 MG; Start 06/16/16 at 14:00 Guaifenesin/ Dextromethorphan (Robitussin Dm Liquid Cup) 10 ml Q4H PRN PO COUGH ; Start 06/17/16 at 17:30 Fluticasone Propionate (Flonase 0.05% Nasal) 1 spray BID NASAL Last administered on 07/01/16 20:22; Admin Dose 1 SPRAY; Start 06/19/16 at 09:00 Lisinopril (Zestril) 20 mg DAILY PO Last administered on 06/23/16 08:24; Admin Dose 20 MG; Start 06/22/16 at 09:00; Status Future Hold Atorvastatin Calcium (Lipitor) 40 mg HS PO Last administered on 06/30/16 21:45 ; Admin Dose 40 MG; Start 06/22/16 at 21:00 Morphine Sulfate (morphine) 2 mg Q4H PRN IV pain Last administered on 06/25/16 01:58; Admin Dose 2 MG; Start 06/22/16 at 10:30 Methyldopa (Aldomet) 500 mg BID PO Last administered on 07/01/16 09:35; Admin Dose 500 MG; Start 06/26/16 at 09:00 Diltiazem HCl (Cardizem Cd) 240 mg DAILY PO Last administered on 07/01/16 12:30 ; Admin Dose 240 MG; Start 07/01/16 at 12:00 Bumetanide (Bumex) 1 mg BID PO Last administered on 07/01/16 09:36; Admin Dose 1 MG; Start 07/01/16 at 09:30 Apixaban (Eliquis) 2.5 mg BID PO Last administered on 07/01/16 11:41; Admin Dose 2.5 MG; Start 07/01/16 at 09:30 Prednisone (Prednisone) 15 mg DAILY PO ; Start 07/02/16 at 09:00 Insulin Glargine (Lantus) 46 unit BID@08,20 SC Last administered on 07/01/16 20 :27; Admin Dose 46 UNIT; Start 07/01/16 at 20:00 SHARLA SOUSA MD Jul 01, 2016 21:46
[2016-07-01] MEDS: ATORVASTATIN 40 MG TAB PO SCH (23:07)
[2016-07-01] MEDS: PREGABALIN 75 MG CAP PO SCH (23:08)
[2016-07-01] MEDS: LORAZEPAM 0.5 MG TAB PO SCH (23:09)
[2016-07-02] VITALS (11 sets, daily range): BP systolic 96–131; BP diastolic 52–70; PULSE 81–138; RESP 16–20
[2016-07-02] MEDS: PANTOPRAZOLE (EC) 40 MG TAB PO SCH (05:15)
[2016-07-02] MEDS: INSULIN ASPART [NOVOLOG] 3 ML PEN SC SCH ×7 (07:50→21:00)
[2016-07-02] MEDS: INSULIN GLARGINE [LANtus] 3 ML PEN SC SCH ×2 (07:51→20:59)
[2016-07-02] MEDS ORDERED: predniSONE 5 MG TAB PO SCH ×2 (09:00)
--- NOTE | 2016-07-02 09:03 | CONS ---
Date/Time of Note Date/Time of Note DATE: 07/02/16 TIME: 09:01 Assessment/Plan Assessment/Plan Chief Complaint/Hosp Course Paroxysmal atrial fibrillation: appears to be a new diagnosis. CHADSVASC is 3, appropriate for anticoagulation. Pt agreeable. Rates controlled mostly Acute on chronic diastolic heart failure: EF preserved.~euvolemic Accelerated HTN: BPs controlled Ovarian mass: Being evaluated by heme/onc.Refusing surgery at this time Urinary retention: requiring martinez Acute on chronic renal failure: improved after obstruction resolved. Cr stable and slightly improved h/o CAD s/p CABG DM PVD s/p renal stent -diltiazem 240mg daily -Eliquis 2.5mg BID -bumex 1 mg PO BID -ASA, statin -continue amlodipine 10mg -continue methyldopa -ok for d/c from cardiology perspective Problems: Consultation Date/Type/Reason Admit Date/Time Jun 09, 2016 at 12:22 Initial Consult Date 06/10/16 Type of Consultation: Cardiology 24 HR Interval Summary Free Text/Dictation No o/n events. Not seen by PT yet. Frustrated and wants to go home soon. Exam/Review of Systems Vital Signs Vitals Vital Signs Date Time Temp Pulse Resp B/P Pulse Ox O2 Delivery O2 Flow Rate FiO2 07/02/16 08:13 138 07/02/16 07:30 98.2 18 131/70 93 07/02/16 05:39 4.0 07/01/16 21:25 Nasal Cannula 07/01/16 01:23 40 Intake and Output 07/01/16 07/01/16 07/02/16 15:00 23:00 07:00 Intake Total 800 ml 700 ml Output Total 900 ml 900 ml Balance -100 ml -200 ml Exam Constitutional: alert, oriented Psych: nl mood/affect Head: normocephalic Neck: jvd (7cm) Respiratory: clear to auscultation, No crackles/rales Cardiovascular: edema (2+), No regular rate and rhythm Gastrointestinal: non-tender, soft Neurological: nl mental status, nl speech Results Result Diagram: 07/01/16 0920 07/01/16 1655 Results 24 hrs Laboratory Tests Test 07/01/16 09:20 07/01/16 11:46 07/01/16 16:29 07/01/16 16:55 Anion Gap 16 Basophils # 0.0 Basophils % 0.1 Blood Urea Nitrogen 80 H Calcium Level 8.4 Carbon Dioxide Level 27 Chloride Level 101 Creatinine 2.47 H Eosinophils # 0.0 Eosinophils % 0.0 Glucose Level 314 H 478 #*H Hematocrit 30.3 L Hemoglobin 9.6 L Lymphocytes # 1.0 Lymphocytes % 10.4 L Magnesium Level 2.0 Mean Corpuscular Hemoglobin 32.1 Mean Corpuscular Hemoglobin Concent 31.7 L Mean Corpuscular Volume 101.3 H Mean Platelet Volume 11.6 H Monocytes # 0.6 Monocytes % 5.6 Neutrophils # 8.0 H Neutrophils % 82.5 H Nucleated Red Blood Cells # 0.0 Nucleated Red Blood Cells % 0.2 H Phosphorus Level 5.9 H Platelet Count 250 Potassium Level 4.3 Red Blood Count 2.99 L Red Cell Distribution Width 15.3 H Sodium Level 140 White Blood Count 9.7 Bedside Glucose 391 H 477 *H Test 07/01/16 17:18 07/01/16 18:26 07/01/16 20:20 07/01/16 21:35 Bedside Glucose 453 *H 422 *H 372 H 321 H Test 07/01/16 22:58 07/02/16 02:34 07/02/16 07:37 Bedside Glucose 305 H 319 H 292 H Medications Medications Current Medications Gabapentin (Neurontin) 600 mg TID PO Last administered on 07/01/16 23:07; Admin Dose 600 MG; Start 06/09/16 at 21:00 Pregabalin (Lyrica) 150 mg QHS PO Last administered on 07/01/16 23:08; Admin Dose 150 MG; Start 06/09/16 at 21:00 Valacyclovir HCl (Valtrex) 1,000 mg BID PO Last administered on 07/01/16 23:07 ; Admin Dose 1,000 MG; Start 06/09/16 at 21:00 Miscellaneous Information 1 ea NOTE XX ; Start 06/09/16 at 18:30 Glucose (Glutose) 15 gm Q15M PRN PO DECREASED GLUCOSE; Start 06/09/16 at 18:30 Glucose (Glutose) 22.5 gm Q15M PRN PO DECREASED GLUCOSE; Start 06/09/16 at 18: 30 Dextrose (D50w Syringe) 25 ml Q15M PRN IV DECREASED GLUCOSE; Start 06/09/16 at 18:30 Dextrose (D50w Syringe) 50 ml Q15M PRN IV DECREASED GLUCOSE; Start 06/09/16 at 18:30 Glucagon (Glucagen) 1 mg Q15M PRN IM DECREASED GLUCOSE; Start 06/09/16 at 18:30 Glucose (Glutose) 15 gm Q15M PRN BUCCAL DECREASED GLUCOSE; Start 06/09/16 at 18 :30 Amlodipine Besylate (Norvasc) 10 mg DAILY PO Last administered on 07/01/16 09: 36; Admin Dose 10 MG; Start 06/09/16 at 20:30 Hydromorphone HCl (Dilaudid) 0.5 mg Q4H PRN IV PAIN Last administered on 01:54; Admin Dose 0.5 MG; Start 06/10/16 at 02:30 Pantoprazole (Protonix Tab) 40 mg DAILY@06 PO Last administered on 07/02/16 05: 15; Admin Dose 40 MG; Start 06/11/16 at 06:00 Clonidine (Catapres) 0.2 mg Q6H PRN PO SBP above 160 Last administered on 10:22; Admin Dose 0.2 MG; Start 06/10/16 at 12:17 Hydralazine HCl (Apresoline) 10 mg Q4H PRN IV SBP >170 Last administered on 23:24; Admin Dose 10 MG; Start 06/10/16 at 15:00 Lorazepam (Ativan) 0.5 mg HS PO Last administered on 07/01/16 23:09; Admin Dose 0.5 MG; Start 06/11/16 at 22:00 Bethanechol Chloride (Urecholine) 25 mg TID PO Last administered on 07/01/16 23 :07; Admin Dose 25 MG; Start 06/13/16 at 13:00 Linagliptin (Tradjenta) 5 mg DAILY PO Last administered on 07/01/16 09:35; Admin Dose 5 MG; Start 06/16/16 at 09:00 Capsaicin (Theragen) 1 applic QID TOP Last administered on 07/01/16 20:22; Admin Dose 1 APPLIC; Start 06/15/16 at 21:00 Lidocaine (Lidocaine 5% Oint) 1 applic TID PRN TOP ITCHING/PAIN; Start at 15:30 Docusate Sodium (Colace) 100 mg BID PO Last administered on 07/01/16 23:09; Admin Dose 100 MG; Start 06/16/16 at 15:00 Bisacodyl (Dulcolax) 10 mg DAILY PRN PO CONSTIPATION Last administered on 20:44; Admin Dose 10 MG; Start 06/16/16 at 14:00 Guaifenesin/ Dextromethorphan (Robitussin Dm Liquid Cup) 10 ml Q4H PRN PO COUGH ; Start 06/17/16 at 17:30 Fluticasone Propionate (Flonase 0.05% Nasal) 1 spray BID NASAL Last administered on 07/01/16 20:22; Admin Dose 1 SPRAY; Start 06/19/16 at 09:00 Lisinopril (Zestril) 20 mg DAILY PO Last administered on 06/23/16 08:24; Admin Dose 20 MG; Start 06/22/16 at 09:00; Status Future Hold Atorvastatin Calcium (Lipitor) 40 mg HS PO Last administered on 07/01/16 23:07 ; Admin Dose 40 MG; Start 06/22/16 at 21:00 Morphine Sulfate (morphine) 2 mg Q4H PRN IV pain Last administered on 06/25/16 01:58; Admin Dose 2 MG; Start 06/22/16 at 10:30 Methyldopa (Aldomet) 500 mg BID PO Last administered on 07/01/16 23:10; Admin Dose 500 MG; Start 06/26/16 at 09:00 Diltiazem HCl (Cardizem Cd) 240 mg DAILY PO Last administered on 07/01/16 12:30 ; Admin Dose 240 MG; Start 07/01/16 at 12:00 Bumetanide (Bumex) 1 mg BID PO Last administered on 07/01/16 23:08; Admin Dose 1 MG; Start 07/01/16 at 09:30 Apixaban (Eliquis) 2.5 mg BID PO Last administered on 07/01/16 23:07; Admin Dose 2.5 MG; Start 07/01/16 at 09:30 Insulin Glargine (Lantus) 46 unit BID@08,20 SC Last administered on 3/9/17at 07 :51; Admin Dose 46 UNIT; Start 07/01/16 at 20:00 Prednisone (Prednisone) 5 mg DAILY PO ; Start 07/02/16 at 09:00 AMISHA NIETO Jul 02, 2016 09:03
[2016-07-02] MEDS: BUMETANIDE 1 MG TAB PO SCH ×2 (09:10→20:45)
[2016-07-02] MEDS: LINAGLIPTIN 5 MG TABLET PO SCH (09:10)
[2016-07-02] MEDS: VALACYCLOVIR 500 MG TAB PO SCH ×2 (09:10→20:44)
[2016-07-02] MEDS: AMLODIPINE 10 MG TAB PO SCH (09:10)
[2016-07-02] MEDS: GABAPENTIN 300 MG CAP PO SCH ×3 (09:10→20:44)
[2016-07-02] MEDS: BETHANECHOL 25 MG TAB PO SCH ×3 (09:11→20:46)
[2016-07-02] MEDS: METHYLDOPA 250 MG TAB PO SCH ×2 (09:11→20:46)
[2016-07-02] MEDS: DOCUSATE SODIUM 100 MG CAP PO SCH ×2 (09:11→20:47)
[2016-07-02] MEDS: DILTIAZEM (CD) 240 MG CAP PO SCH (09:11)
[2016-07-02] MEDS: APIXABAN 5 MG TABLET PO SCH ×2 (09:11→20:45)
[2016-07-02] MEDS: CAPSAICIN 0.025% 60 GM CR TOP SCH ×4 (09:16→20:44)
[2016-07-02] MEDS: FLUTICASONE 0.05% 16 GM NAS SPRAY NASAL SCH ×2 (09:16→20:44)
[2016-07-02] MEDS: ALBUTEROL/IPRATROPIUM (NEB) 3 ML AMP HHN SCH ×3 (09:37→20:12)
--- NOTE | 2016-07-02 10:21 | PN ---
DATE: 07/02/2016 SUBJECTIVE: This morning the patient was somnolent, but arousable. I spoke with patient about the possibility of going to a [facility]pc facility due to her uncontrolled sugars. Patient was relu ctant. Additionally, I told the patient to be compliant with diabetic diet as her glucose levels benson ve been elevated. Again, the patient refused to be compliant. No other acute events noted. OBJECTIVE: VITAL SIGNS: Blood 131/70, respiration 18, pulse 86, temperature 98.2. The patient's I's and O's 1 liter in, 3.4 liters out. HEENT: Head is normocephalic. NECK: Supple. HEART: Regular rate. LUNGS: Show diminished breath sounds at the base. ABDOMEN: Soft, nontender to palpation. No rebound or guarding. EXTREMITIES: Negative for clubbing, cyanosis. Positive edema, improved. DERMATOLOGIC: No rashes. MUSCULOSKELETAL: No joint effusions. NEUROLOGIC: No change in exam. MEDICATIONS: The patient's medications have been reviewed. LABORATORY DATA: For July 02 is currently pending. Laboratory data for July 01 showed a sodium of 1 40, potassium 1.3, chloride 101, BUN 80, creatinine 2.47. ASSESSMENT AND PLAN: 1. Acute hypoxic respiratory failure secondary to decompensated heart failure, COPD and sleep apnea . The patient is clinically improving. Continue current treatment plan. Continue to wean off ster oids. Continue nebulizers, diuretic therapy. 2. Nonoliguric acute kidney injury on top of chronic kidney disease stage IV. Etiology of acute ki dney injury was secondary to hemodynamics. Renal function has been fluctuating but improving overal l with de-escalation of diuretic therapy. Will continue current treatment plan. Continue monitoring renal function closely on current diuretic regimen. 3. Acute decompensated heart failure, clinically improving. Continue medical management and follow up with Cardiology. 4. Right ovarian cyst mass concerning for neoplasm. The patient is refusing surgery. 5. Hypertension. Blood pressure improved. Continue current regimen. 6. Anemia. Continue to monitor hemoglobin and hematocrit levels. 7. Diabetes. The patient's glucose levels have been markedly elevated. This is multifactorial sec ondary to the patient's noncompliant with both diet and medical management and prednisone. We will wean off prednisone. Lantus has been adjusted. We will continue to encourage compliance with the pa tient. 8. History of coronary artery disease. Continue medical management. 9. Chronic kidney disease, stage IV. Etiology secondary to diabetes and hypertension. The patient is currently in acute kidney injury as stated above. Continue current medical management. 10. Morbid obesity. Continue dietary modification. 11. Sleep apnea. Continue nightly CPAP. The patient refuses. Continue to encourage 12. Dyslipidemia. Continue statin therapy. 13. Neuropathy. Continue Lyrica. 15. Gastrointestinal and deep venous thrombosis prophylaxis. inhibitor and Lovenox. Dictated By: CRISTA GAINES/BIRGIT Conf#: [id number] DID#: [id number]
--- NOTE | 2016-07-02 11:22 | CONS ---
Date/Time of Note Date/Time of Note DATE: 07/02/16 TIME: 11:19 Assessment/Plan Assessment/Plan Additional Assessment/Plan Assessment recommendations; 1. Patient admitted for urinary obstruction I discovered to have a right ovarian mass on CT imaging of the abdomen. Patient having refused abdominal surgery owing to her multiple underlying comorbidities. 2. History of CHF. 3. History of coronary artery bypass surgery. 4. Diabetes. 5. Hypertension. Next 6. Likely underlying obstructive sleep apnea. 7. Renal insufficiency. 8. COPD. Continue current treatment. Patient has been put on prednisone 15 mg daily. I would recommend decreasing the dose to 10 mg in 48 hours. Patient also wishes to be discharged home. She will need to have home oxygen arranged. Consultation Date/Type/Reason Admit Date/Time Jun 09, 2016 at 12:22 Initial Consult Date 06/10/16 Type of Consultation: Pulmonary 24 HR Interval Summary Free Text/Dictation Patient condition is stable. She is currently sitting in a chair in the room denies any shortness of breath, chest pain, wheezing. Denies any abdominal pain , nausea vomiting. According to her she is getting better overall. General exam; elderly lady, currently in no distress, awake and alert. Exam/Review of Systems Vital Signs Vitals Vital Signs Date Time Temp Pulse Resp B/P Pulse Ox O2 Delivery O2 Flow Rate FiO2 07/02/16 09:38 90 22 93 Nasal Cannula 4.0 07/02/16 07:30 98.2 131/70 07/01/16 01:23 40 Intake and Output 07/01/16 07/01/16 07/02/16 15:00 23:00 07:00 Intake Total 800 ml 700 ml Output Total 900 ml 900 ml Balance -100 ml -200 ml Exam HEENT exam; supple neck, JVD difficult to see because of shortening. No neck masses. No thyromegaly. Nipples are midsize bilaterally and reactive to light. Chest examination; diminished but clear breath sounds bilaterally. S1-S2 audible, no murmurs. Abdomen examination; protuberant, nontender. Bowel sounds audible. Extremity examination chronic appearing 2+ pitting edema lower extremities bilaterally. [employer] examination; no focal deficit. Results Result Diagram: 07/01/16 0920 07/01/16 1655 Results 24 hrs Laboratory Tests Test 07/01/16 11:46 07/01/16 16:29 07/01/16 16:55 07/01/16 17:18 Bedside Glucose 391 H 477 *H 453 *H Glucose Level 478 #*H Test 07/01/16 18:26 07/01/16 20:20 07/01/16 21:35 07/01/16 22:58 Bedside Glucose 422 *H 372 H 321 H 305 H Test 07/02/16 02:34 07/02/16 07:37 Bedside Glucose 319 H 292 H Medications Medications Current Medications Gabapentin (Neurontin) 600 mg TID PO Last administered on 07/02/16 09:10; Admin Dose 600 MG; Start 06/09/16 at 21:00 Pregabalin (Lyrica) 150 mg QHS PO Last administered on 07/01/16 23:08; Admin Dose 150 MG; Start 06/09/16 at 21:00 Valacyclovir HCl (Valtrex) 1,000 mg BID PO Last administered on 07/02/16 09:10 ; Admin Dose 1,000 MG; Start 06/09/16 at 21:00 Miscellaneous Information 1 ea NOTE XX ; Start 06/09/16 at 18:30 Glucose (Glutose) 15 gm Q15M PRN PO DECREASED GLUCOSE; Start 06/09/16 at 18:30 Glucose (Glutose) 22.5 gm Q15M PRN PO DECREASED GLUCOSE; Start 06/09/16 at 18: 30 Dextrose (D50w Syringe) 25 ml Q15M PRN IV DECREASED GLUCOSE; Start 06/09/16 at 18:30 Dextrose (D50w Syringe) 50 ml Q15M PRN IV DECREASED GLUCOSE; Start 06/09/16 at 18:30 Glucagon (Glucagen) 1 mg Q15M PRN IM DECREASED GLUCOSE; Start 06/09/16 at 18:30 Glucose (Glutose) 15 gm Q15M PRN BUCCAL DECREASED GLUCOSE; Start 06/09/16 at 18 :30 Amlodipine Besylate (Norvasc) 10 mg DAILY PO Last administered on 07/02/16 09: 10; Admin Dose 10 MG; Start 06/09/16 at 20:30 Hydromorphone HCl (Dilaudid) 0.5 mg Q4H PRN IV PAIN Last administered on 01:54; Admin Dose 0.5 MG; Start 06/10/16 at 02:30 Pantoprazole (Protonix Tab) 40 mg DAILY@06 PO Last administered on 07/02/16 05: 15; Admin Dose 40 MG; Start 06/11/16 at 06:00 Clonidine (Catapres) 0.2 mg Q6H PRN PO SBP above 160 Last administered on 10:22; Admin Dose 0.2 MG; Start 06/10/16 at 12:17 Hydralazine HCl (Apresoline) 10 mg Q4H PRN IV SBP >170 Last administered on 23:24; Admin Dose 10 MG; Start 06/10/16 at 15:00 Lorazepam (Ativan) 0.5 mg HS PO Last administered on 07/01/16 23:09; Admin Dose 0.5 MG; Start 06/11/16 at 22:00 Bethanechol Chloride (Urecholine) 25 mg TID PO Last administered on 07/02/16 09 :11; Admin Dose 25 MG; Start 06/13/16 at 13:00 Linagliptin (Tradjenta) 5 mg DAILY PO Last administered on 07/02/16 09:10; Admin Dose 5 MG; Start 06/16/16 at 09:00 Capsaicin (Theragen) 1 applic QID TOP Last administered on 07/02/16 09:16; Admin Dose 1 APPLIC; Start 06/15/16 at 21:00 Lidocaine (Lidocaine 5% Oint) 1 applic TID PRN TOP ITCHING/PAIN; Start at 15:30 Docusate Sodium (Colace) 100 mg BID PO Last administered on 07/02/16 09:11; Admin Dose 100 MG; Start 06/16/16 at 15:00 Bisacodyl (Dulcolax) 10 mg DAILY PRN PO CONSTIPATION Last administered on 20:44; Admin Dose 10 MG; Start 06/16/16 at 14:00 Guaifenesin/ Dextromethorphan (Robitussin Dm Liquid Cup) 10 ml Q4H PRN PO COUGH ; Start 06/17/16 at 17:30 Fluticasone Propionate (Flonase 0.05% Nasal) 1 spray BID NASAL Last administered on 07/02/16 09:16; Admin Dose 1 SPRAY; Start 06/19/16 at 09:00 Lisinopril (Zestril) 20 mg DAILY PO Last administered on 06/23/16 08:24; Admin Dose 20 MG; Start 06/22/16 at 09:00; Status Future Hold Atorvastatin Calcium (Lipitor) 40 mg HS PO Last administered on 07/01/16 23:07 ; Admin Dose 40 MG; Start 06/22/16 at 21:00 Morphine Sulfate (morphine) 2 mg Q4H PRN IV pain Last administered on 06/25/16 01:58; Admin Dose 2 MG; Start 06/22/16 at 10:30 Methyldopa (Aldomet) 500 mg BID PO Last administered on 07/02/16 09:11; Admin Dose 500 MG; Start 06/26/16 at 09:00 Diltiazem HCl (Cardizem Cd) 240 mg DAILY PO Last administered on 07/02/16 09:11 ; Admin Dose 240 MG; Start 07/01/16 at 12:00 Bumetanide (Bumex) 1 mg BID PO Last administered on 07/02/16 09:10; Admin Dose 1 MG; Start 07/01/16 at 09:30 Apixaban (Eliquis) 2.5 mg BID PO Last administered on 07/02/16 09:11; Admin Dose 2.5 MG; Start 07/01/16 at 09:30 Insulin Glargine (Lantus) 46 unit BID@08,20 SC Last administered on 07/02/16 07 :51; Admin Dose 46 UNIT; Start 07/01/16 at 20:00 Prednisone (Prednisone) 5 mg DAILY PO Last administered on 07/02/16 09:11; Admin Dose 5 MG; Start 07/02/16 at 09:00 JAYME POP Jul 02, 2016 11:21
[2016-07-02 12:23] LABS: ADD SCAN DIFF NO
[2016-07-02 12:27] LABS: BASOPHILS % 0.1 % (0.0-2.0); EOSINOPHILS % 0.1 % (0.0-7.0); HEMATOCRIT 31.3 % (37.0-47.0); HEMOGLOBIN 9.7 g/dl (12.0-16.0); LYMPHOCYTES # 1.5 10^3/ul (0.8-2.9); LYMPHOCYTES % 11.6 % (15.0-51.0); MEAN CORPUSCULAR HEMOGLOBIN 31.6 pg (29.0-33.0); MEAN PLATELET VOLUME 11.8 fl (7.4-10.4); MONOCYTE # 1.4 10^3/ul (0.3-0.9); MONOCYTES % 11.5 % (0.0-11.0); NEUTROPHIL # 9.3 10^3/ul (1.6-7.5); NEUTROPHILS % 74.8 % (39.0-77.0); NUCLEATED RED BLOOD CELLS # 0.1 10^3/ul (0.0-0.0); NUCLEATED RED BLOOD CELLS% 0.4 /100WBC (0.0-0.0); PLATELET COUNT 237 10^3/UL (140-415); RED BLOOD COUNT 3.07 10^6/ul (4.20-5.40); RED CELL DISTRIBUTION WIDTH 15.6 % (11.5-14.5); WHITE BLOOD COUNT 12.5 10^3/ul (4.8-10.8)
[2016-07-02 12:41] LABS: POTASSIUM 4.2 mmol/L (3.5-5.1)
[2016-07-02 12:43] LABS: CREATININE 2.45 mg/dl (0.44-1.00)
[2016-07-02 12:44] LABS: CALCIUM 8.4 mg/dl (8.4-10.2); PHOSPHORUS 4.9 mg/dl (2.5-4.9)
[2016-07-02] MEDS: ATORVASTATIN 40 MG TAB PO SCH (20:45)
[2016-07-02] MEDS: PREGABALIN 75 MG CAP PO SCH (20:49)
[2016-07-02] MEDS: LORAZEPAM 0.5 MG TAB PO SCH (21:00)
--- NOTE | 2016-07-02 22:43 | CONS ---
Date/Time of Note Date/Time of Note DATE: 07/02/16 TIME: 22:42 Assessment/Plan Assessment/Plan Chief Complaint/Hosp Course 1. A right ovarian cystic mass. Etiology is unclear, concerning for possible malignancy. PT IS DECLINING SURGERY AT PRESENT 2. Anemia. Continue to monitor hemoglobin and hematocrit levels. + component ACD OBSERVE FOR BLEEDING AND HEMOLYSIS SERVIN / NUMBNESS LUE- RESOLVED CT HEAD- NEG 3. Nonoliguric acute kidney injury on top of chronic kidney disease with a previous baseline renal function around 1.5 to 2 mg/dL. Etiology of acute kidney injury is possibly secondary to urinary retention, obstructive uropathy versus hemodynamics, possible cardiorenal syndrome. The patient's urinalysis shows findings of proteinuria but no pyuria, no hematuria, and a CT scan of the abdomen and pelvis showed no evidence of hydronephrosis. Plan at this point is to check a renal ultrasound. Will repeat UA with microanalysis. Will check urine electrolytes. Will continue supportive care, renally dose medications, avoid nephrotoxins, monitor renal function closely. Clinical albuminuria - PER NEPHROLOGY 4 Urinary retention. Underlying etiology is unclear. The patient is status post Flynn catheter placement with good urinary output. Seen by urology still unable to urinate on intermittent catheterizations URECHOLINE - DOSE INCREASED 5. Acute decompensated diastolic heart failure. The patient noted to have pulmonary congestion, lower extremity edema. The patient is status post Lasix; will continue- PER NEPHRO cardiology F-UP PT IS IV BUMEX AROUND THE CLOCK 6. History of coronary artery disease, status post coronary artery bypass graft. Continue current medical management. 7. Diabetes. Will continue Accu-Cheks, insulin sliding scale, continue Lantus. HB A1C- 8.1.will increase lantus 8. Chronic kidney disease stage IIIB/IV. Etiology is multifactorial secondary to diabetes, hypertension. The patient is currently in acute kidney injury as stated above. Continue medical management. 9. Morbid obesity. Continue dietary modification. 10. Dyslipidemia. Continue statin therapy. 11. Obstructive sleep apnea. Continue supplemental oxygen. Consider a pulmonary consult for evaluation. 12. Hypertension- POORLY CONTROLLED Continue current blood pressure regimen. Will adjust medications as needed. CARDIOLOGY F-UP 13. History of peripheral vascular disease. Continue current medical management. 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 SEVERE DJD/OA WITH CHRONIC PAIN 16. GI PROBLEMS- WITH ABD PAIN, DIARRHEA/ ALTERNATING WITH CONSTIPATION GI F-UP Problems: Consultation Date/Type/Reason Admit Date/Time Jun 09, 2016 at 12:22 Initial Consult Date 06/09/16 [facility] Ex[facility]/Review of Systems Vital Signs Vitals Vital Signs Date Time Temp Pulse Resp B/P Pulse Ox O2 Delivery O2 Flow Rate FiO2 07/02/16 20:27 87 07/02/16 20:16 4.0 07/02/16 20:14 20 91 Nasal Cannula 07/02/16 19:48 97.6 122/57 07/01/16 01:23 40 Intake and Output 07/01/16 07/01/16 07/02/16 15:00 23:00 07:00 Intake Total 800 ml 700 ml Output Total 900 ml 900 ml Balance -100 ml -200 ml Exam HEENT: Head is normocephalic. NECK: Supple. HEART: Regular rate. LUNGS: Showed diminished breath sounds at the base. ABDOMEN: Soft, nontender to palpation. No rebound or guarding. EXTREMITIES: Negative for clubbing or cyanosis. No edema. DERMATOLOGIC: No rashes. MUSCULOSKELETAL: Have no joint effusion. NEUROLOGIC: No change in exam. Results Result Diagram: 07/02/16 1145 07/02/16 1145 Results 24 hrs Laboratory Tests Test 07/01/16 22:58 07/02/16 02:34 07/02/16 07:37 07/02/16 11:17 Bedside Glucose 305 H 319 H 292 H 279 H Test 07/02/16 11:45 07/02/16 17:27 07/02/16 20:55 Anion Gap 16 Basophils # 0.0 Basophils % 0.1 Blood Urea Nitrogen 77 H Calcium Level 8.4 Carbon Dioxide Level 27 Chloride Level 102 Creatinine 2.45 H Eosinophils # 0.0 Eosinophils % 0.1 Glucose Level 294 #H Hematocrit 31.3 L Hemoglobin 9.7 L Lymphocytes # 1.5 Lymphocytes % 11.6 L Magnesium Level 2.0 Mean Corpuscular Hemoglobin 31.6 Mean Corpuscular Hemoglobin Concent 31.0 L Mean Corpuscular Volume 102.0 H Mean Platelet Volume 11.8 H Monocytes # 1.4 H Monocytes % 11.5 H Neutrophils # 9.3 H Neutrophils % 74.8 Nucleated Red Blood Cells # 0.1 H Nucleated Red Blood Cells % 0.4 H Phosphorus Level 4.9 Platelet Count 237 Potassium Level 4.2 Red Blood Count 3.07 L Red Cell Distribution Width 15.6 H Sodium Level 141 White Blood Count 12.5 #H Bedside Glucose 138 174 Medications Medications Current Medications Gabapentin (Neurontin) 600 mg TID PO Last administered on 07/02/16 20:44; Admin Dose 600 MG; Start 06/09/16 at 21:00 Pregabalin (Lyrica) 150 mg QHS PO Last administered on 07/02/16 20:49; Admin Dose 150 MG; Start 06/09/16 at 21:00 Valacyclovir HCl (Valtrex) 1,000 mg BID PO Last administered on 07/02/16 20:44 ; Admin Dose 1,000 MG; Start 06/09/16 at 21:00 Miscellaneous Information 1 ea NOTE XX ; Start 06/09/16 at 18:30 Glucose (Glutose) 15 gm Q15M PRN PO DECREASED GLUCOSE; Start 06/09/16 at 18:30 Glucose (Glutose) 22.5 gm Q15M PRN PO DECREASED GLUCOSE; Start 06/09/16 at 18: 30 Dextrose (D50w Syringe) 25 ml Q15M PRN IV DECREASED GLUCOSE; Start 06/09/16 at 18:30 Dextrose (D50w Syringe) 50 ml Q15M PRN IV DECREASED GLUCOSE; Start 06/09/16 at 18:30 Glucagon (Glucagen) 1 mg Q15M PRN IM DECREASED GLUCOSE; Start 06/09/16 at 18:30 Glucose (Glutose) 15 gm Q15M PRN BUCCAL DECREASED GLUCOSE; Start 06/09/16 at 18 :30 Amlodipine Besylate (Norvasc) 10 mg DAILY PO Last administered on 07/02/16 09: 10; Admin Dose 10 MG; Start 06/09/16 at 20:30 Hydromorphone HCl (Dilaudid) 0.5 mg Q4H PRN IV PAIN Last administered on 01:54; Admin Dose 0.5 MG; Start 06/10/16 at 02:30 Pantoprazole (Protonix Tab) 40 mg DAILY@06 PO Last administered on 07/02/16 05: 15; Admin Dose 40 MG; Start 06/11/16 at 06:00 Clonidine (Catapres) 0.2 mg Q6H PRN PO SBP above 160 Last administered on 10:22; Admin Dose 0.2 MG; Start 06/10/16 at 12:17 Hydralazine HCl (Apresoline) 10 mg Q4H PRN IV SBP >170 Last administered on 23:24; Admin Dose 10 MG; Start 06/10/16 at 15:00 Lorazepam (Ativan) 0.5 mg HS PO Last administered on 07/01/16 23:09; Admin Dose 0.5 MG; Start 06/11/16 at 22:00 Bethanechol Chloride (Urecholine) 25 mg TID PO Last administered on 07/02/16 20 :46; Admin Dose 25 MG; Start 06/13/16 at 13:00 Linagliptin (Tradjenta) 5 mg DAILY PO Last administered on 07/02/16 09:10; Admin Dose 5 MG; Start 06/16/16 at 09:00 Capsaicin (Theragen) 1 applic QID TOP Last administered on 07/02/16 20:44; Admin Dose 1 APPLIC; Start 06/15/16 at 21:00 Lidocaine (Lidocaine 5% Oint) 1 applic TID PRN TOP ITCHING/PAIN; Start at 15:30 Docusate Sodium (Colace) 100 mg BID PO Last administered on 07/02/16 20:47; Admin Dose 100 MG; Start 06/16/16 at 15:00 Bisacodyl (Dulcolax) 10 mg DAILY PRN PO CONSTIPATION Last administered on 20:44; Admin Dose 10 MG; Start 06/16/16 at 14:00 Guaifenesin/ Dextromethorphan (Robitussin Dm Liquid Cup) 10 ml Q4H PRN PO COUGH ; Start 06/17/16 at 17:30 Fluticasone Propionate (Flonase 0.05% Nasal) 1 spray BID NASAL Last administered on 07/02/16 20:44; Admin Dose 1 SPRAY; Start 06/19/16 at 09:00 Lisinopril (Zestril) 20 mg DAILY PO Last administered on 06/23/16 08:24; Admin Dose 20 MG; Start 06/22/16 at 09:00; Status Future Hold Atorvastatin Calcium (Lipitor) 40 mg HS PO Last administered on 07/02/16 20:45 ; Admin Dose 40 MG; Start 06/22/16 at 21:00 Morphine Sulfate (morphine) 2 mg Q4H PRN IV pain Last administered on 06/25/16 01:58; Admin Dose 2 MG; Start 06/22/16 at 10:30 Methyldopa (Aldomet) 500 mg BID PO Last administered on 07/02/16 20:46; Admin Dose 500 MG; Start 06/26/16 at 09:00 Diltiazem HCl (Cardizem Cd) 240 mg DAILY PO Last administered on 07/02/16 09:11 ; Admin Dose 240 MG; Start 07/01/16 at 12:00 Bumetanide (Bumex) 1 mg BID PO Last administered on 07/02/16 20:45; Admin Dose 1 MG; Start 07/01/16 at 09:30 Apixaban (Eliquis) 2.5 mg BID PO Last administered on 07/02/16 20:45; Admin Dose 2.5 MG; Start 07/01/16 at 09:30 Insulin Glargine (Lantus) 46 unit BID@08,20 SC Last administered on 07/02/16 20 :59; Admin Dose 46 UNIT; Start 07/01/16 at 20:00 Prednisone (Prednisone) 5 mg DAILY PO Last administered on 07/02/16 09:11; Admin Dose 5 MG; Start 07/02/16 at 09:00 SHARLA SOUSA MD Jul 02, 2016 22:42
[2016-07-03] VITALS (12 sets, daily range): BP systolic 101–127; BP diastolic 59–99; PULSE 77–112; RESP 16–19
[2016-07-03] MEDS: HYDROmorphONE 1 MG/ML SYG IV PRN (02:49)
[2016-07-03] MEDS: LORAZEPAM 0.5 MG TAB PO PRN (03:42)
[2016-07-03] MEDS: PANTOPRAZOLE (EC) 40 MG TAB PO SCH (06:00)
--- NOTE | 2016-07-03 08:25 | PN ---
DATE: 07/03/2016 SUBJECTIVE: The patient is clinically improved. No shortness of breath. No fevers, chills, nausea or vomiting. OBJECTIVE: VITAL SIGNS: Blood pressure 127/78, respirations 16, pulse 69, temperature 98.5. HEENT: Head is normocephalic. NECK: Supple. HEART: Regular rate. LUNGS: Showed diminished breath sounds at the base. ABDOMEN: Soft, nontender to palpation. No rebound or guarding. EXTREMITIES: Negative for clubbing or cyanosis. Trace edema. DERMATOLOGIC: No rashes. MUSCULOSKELETAL: Have no joint effusions. NEUROLOGIC: No change in exam. MEDICATIONS: The patient's medication were reviewed. LABORATORY DATA: Shows sodium 141, potassium 4.2, chloride 102, BUN 77, creatinine 2.45. White cou nt 12.5, hemoglobin 9.7, hematocrit 31.3, platelet count 237. ASSESSMENT AND PLAN: 1. Acute hypoxemic respiratory failure secondary to congestive heart failure, COPD, sleep apnea. T he patient is clinically improving. Currently stable on nasal cannula. Continue the current medica l management. 2. Nonoliguric acute kidney injury on top of chronic kidney disease stage IV. Etiology of acute ki dney injury is secondary to hemodynamics. Renal function is fluctuating, but improved with de-escal ation of diuretic therapy. Will continue the current treatment plan, supportive care, renally dose all medications. 3. Acute decompensated heart failure. Clinically improving. Continue the current medical manageme nt. 4. Hypertension. Improved. Continue the current blood pressure regimen. 5. Anemia. Continue to monitor hemoglobin and hematocrit levels. 6. Diabetes. Glucose levels have been fluctuating. The patient has been noncompliant. Will amador nue to wean off prednisone. Lantus and NovoLog were adjusted. Will continue to monitor. 7. History of coronary artery disease. Continue medical management. 8. Chronic kidney disease stage IV likely secondary to diabetes and hypertension. Continue the [facility] treatment plan. 9. Morbid obesity. Continue dietary modification. 10. Sleep apnea. Continue nasal cannula. The patient is refusing CPAP. 11. Dyslipidemia. Continue statin therapy. 12. Neuropathy. Continue Lyrica. 13. Dyslipidemia. Continue statin therapy. 14. Gastrointestinal and deep venous thrombosis prophylaxis. Continue proton pump inhibitor and Lo venox. Dictated By: CRISTA GAINES/BIRGIT Conf#: [id number] [facility]#: [id number]
[2016-07-03] MEDS: FLUTICASONE 0.05% 16 GM NAS SPRAY NASAL SCH ×2 (09:00→21:40)
[2016-07-03] MEDS: CAPSAICIN 0.025% 60 GM CR TOP SCH ×4 (09:03→21:00)
[2016-07-03] MEDS: GABAPENTIN 300 MG CAP PO SCH ×3 (09:04→21:41)
[2016-07-03] MEDS: DOCUSATE SODIUM 100 MG CAP PO SCH ×2 (09:04→21:41)
[2016-07-03] MEDS: BETHANECHOL 25 MG TAB PO SCH ×3 (09:04→21:41)
[2016-07-03] MEDS: DILTIAZEM (CD) 240 MG CAP PO SCH (09:05)
[2016-07-03] MEDS: LINAGLIPTIN 5 MG TABLET PO SCH (09:05)
[2016-07-03] MEDS: METHYLDOPA 250 MG TAB PO SCH ×2 (09:06→21:42)
[2016-07-03] MEDS: APIXABAN 5 MG TABLET PO SCH ×2 (09:06→21:40)
[2016-07-03] MEDS: BUMETANIDE 1 MG TAB PO SCH (09:07)
[2016-07-03] MEDS: VALACYCLOVIR 500 MG TAB PO SCH ×2 (09:07→21:40)
[2016-07-03] MEDS: AMLODIPINE 10 MG TAB PO SCH (09:08)
[2016-07-03] MEDS: INSULIN ASPART [NOVOLOG] 3 ML PEN SC SCH ×7 (09:11→21:00)
[2016-07-03] MEDS: INSULIN GLARGINE [LANtus] 3 ML PEN SC SCH (09:12)
--- NOTE | 2016-07-03 09:18 | CONS ---
Date/Time of Note Date/Time of Note DATE: 07/03/16 TIME: 09:16 Assessment/Plan Assessment/Plan Chief Complaint/Hosp Course Paroxysmal atrial fibrillation: appears to be a new diagnosis. CHADSVASC is 3, appropriate for anticoagulation. Pt agreeable. Rates controlled Acute on chronic diastolic heart failure: EF preserved.~euvolemic Accelerated HTN: BPs controlled Ovarian mass: Evaluated by heme/onc.Refusing surgery at this time Urinary retention: requiring martinez Acute on chronic renal failure: improved after obstruction resolved. Cr stable but has been fluctuating at times h/o CAD s/p CABG DM PVD s/p renal stent -diltiazem 240mg daily -Eliquis 2.5mg BID -decrease to bumex 1 mg PO daily as consistently net negative -ASA, statin -continue amlodipine 10mg -continue methyldopa -ok for d/c from cardiology perspective Problems: Consultation Date/Type/Reason Admit Date/Time Jun 09, 2016 at 12:22 Initial Consult Date 06/10/16 Type of Consultation: Cardiology 24 HR Interval Summary Free Text/Dictation No o/n events. Worked with PT who recommended home PT. Pt is awaiting home oxygen set up Exam/Review of Systems Vital Signs Vitals Vital Signs Date Time Temp Pulse Resp B/P Pulse Ox O2 Delivery O2 Flow Rate FiO2 07/03/16 08:06 85 07/03/16 07:30 97.9 19 119/74 93 07/03/16 02:29 4.0 07/02/16 20:30 Nasal Cannula 07/01/16 01:23 40 Intake and Output 07/02/16 07/02/16 07/03/16 15:00 23:00 07:00 Intake Total 860 ml 400 ml Output Total 2000 ml 1700 ml Balance -1140 ml -1300 ml Exam Constitutional: alert, oriented Psych: no complaints Head: atraumatic, normocephalic Neck: No jvd Respiratory: clear to auscultation, No crackles/rales Cardiovascular: edema (2+), No regular rate and rhythm, No systolic murmur Neurological: nl mental status, nl speech Results Result Diagram: 07/02/16 1145 07/02/16 1145 Results 24 hrs Laboratory Tests Test 07/02/16 11:17 07/02/16 11:45 07/02/16 17:27 07/02/16 20:55 Bedside Glucose 279 H 138 174 Anion Gap 16 Basophils # 0.0 Basophils % 0.1 Blood Urea Nitrogen 77 H Calcium Level 8.4 Carbon Dioxide Level 27 Chloride Level 102 Creatinine 2.45 H Eosinophils # 0.0 Eosinophils % 0.1 Glucose Level 294 #H Hematocrit 31.3 L Hemoglobin 9.7 L Lymphocytes # 1.5 Lymphocytes % 11.6 L Magnesium Level 2.0 Mean Corpuscular Hemoglobin 31.6 Mean Corpuscular Hemoglobin Concent 31.0 L Mean Corpuscular Volume 102.0 H Mean Platelet Volume 11.8 H Monocytes # 1.4 H Monocytes % 11.5 H Neutrophils # 9.3 H Neutrophils % 74.8 Nucleated Red Blood Cells # 0.1 H Nucleated Red Blood Cells % 0.4 H Phosphorus Level 4.9 Platelet Count 237 Potassium Level 4.2 Red Blood Count 3.07 L Red Cell Distribution Width 15.6 H Sodium Level 141 White Blood Count 12.5 #H Test 07/03/16 07:24 Bedside Glucose 222 H Medications Medications Current Medications Gabapentin (Neurontin) 600 mg TID PO Last administered on 07/03/16 09:04; Admin Dose 600 MG; Start 06/09/16 at 21:00 Pregabalin (Lyrica) 150 mg QHS PO Last administered on 07/02/16 20:49; Admin Dose 150 MG; Start 06/09/16 at 21:00 Valacyclovir HCl (Valtrex) 1,000 mg BID PO Last administered on 07/03/16 09:07 ; Admin Dose 1,000 MG; Start 06/09/16 at 21:00 Miscellaneous Information 1 ea NOTE XX ; Start 06/09/16 at 18:30 Glucose (Glutose) 15 gm Q15M PRN PO DECREASED GLUCOSE; Start 06/09/16 at 18:30 Glucose (Glutose) 22.5 gm Q15M PRN PO DECREASED GLUCOSE; Start 06/09/16 at 18: 30 Dextrose (D50w Syringe) 25 ml Q15M PRN IV DECREASED GLUCOSE; Start 06/09/16 at 18:30 Dextrose (D50w Syringe) 50 ml Q15M PRN IV DECREASED GLUCOSE; Start 06/09/16 at 18:30 Glucagon (Glucagen) 1 mg Q15M PRN IM DECREASED GLUCOSE; Start 06/09/16 at 18:30 Glucose (Glutose) 15 gm Q15M PRN BUCCAL DECREASED GLUCOSE; Start 06/09/16 at 18 :30 Amlodipine Besylate (Norvasc) 10 mg DAILY PO Last administered on 07/03/16 09: 08; Admin Dose 10 MG; Start 06/09/16 at 20:30 Hydromorphone HCl (Dilaudid) 0.5 mg Q4H PRN IV PAIN Last administered on 01:54; Admin Dose 0.5 MG; Start 06/10/16 at 02:30 Pantoprazole (Protonix Tab) 40 mg DAILY@06 PO Last administered on 07/02/16 05: 15; Admin Dose 40 MG; Start 06/11/16 at 06:00 Clonidine (Catapres) 0.2 mg Q6H PRN PO SBP above 160 Last administered on 10:22; Admin Dose 0.2 MG; Start 06/10/16 at 12:17 Hydralazine HCl (Apresoline) 10 mg Q4H PRN IV SBP >170 Last administered on 23:24; Admin Dose 10 MG; Start 06/10/16 at 15:00 Lorazepam (Ativan) 0.5 mg HS PO Last administered on 07/01/16 23:09; Admin Dose 0.5 MG; Start 06/11/16 at 22:00 Bethanechol Chloride (Urecholine) 25 mg TID PO Last administered on 07/03/16 09:04; Admin Dose 25 MG; Start 06/13/16 at 13:00 Linagliptin (Tradjenta) 5 mg DAILY PO Last administered on 07/03/16 09:05; Admin Dose 5 MG; Start 06/16/16 at 09:00 Capsaicin (Theragen) 1 applic QID TOP Last administered on 07/03/16 09:03; Admin Dose 1 APPLIC; Start 06/15/16 at 21:00 Lidocaine (Lidocaine 5% Oint) 1 applic TID PRN TOP ITCHING/PAIN; Start at 15:30 Docusate Sodium (Colace) 100 mg BID PO Last administered on 07/03/16 09:04; Admin Dose 100 MG; Start 06/16/16 at 15:00 Bisacodyl (Dulcolax) 10 mg DAILY PRN PO CONSTIPATION Last administered on 20:44; Admin Dose 10 MG; Start 06/16/16 at 14:00 Guaifenesin/ Dextromethorphan (Robitussin Dm Liquid Cup) 10 ml Q4H PRN PO COUGH ; Start 06/17/16 at 17:30 Fluticasone Propionate (Flonase 0.05% Nasal) 1 spray BID NASAL Last administered on 07/02/16 20:44; Admin Dose 1 SPRAY; Start 06/19/16 at 09:00 Lisinopril (Zestril) 20 mg DAILY PO Last administered on 06/23/16 08:24; Admin Dose 20 MG; Start 06/22/16 at 09:00; Status Future Hold Atorvastatin Calcium (Lipitor) 40 mg HS PO Last administered on 07/02/16 20:45 ; Admin Dose 40 MG; Start 06/22/16 at 21:00 Morphine Sulfate (morphine) 2 mg Q4H PRN IV pain Last administered on 06/25/16 01:58; Admin Dose 2 MG; Start 06/22/16 at 10:30 Methyldopa (Aldomet) 500 mg BID PO Last administered on 07/03/16 09:06; Admin Dose 500 MG; Start 06/26/16 at 09:00 Diltiazem HCl (Cardizem Cd) 240 mg DAILY PO Last administered on 07/03/16 09: 05; Admin Dose 240 MG; Start 07/01/16 at 12:00 Apixaban (Eliquis) 2.5 mg BID PO Last administered on 07/03/16 09:06; Admin Dose 2.5 MG; Start 07/01/16 at 09:30 Insulin Glargine (Lantus) 46 unit BID@08,20 SC Last administered on 07/03/16 09:12; Admin Dose 46 UNIT; Start 07/01/16 at 20:00 Lorazepam (Ativan) 0.5 mg Q8H PRN PO ANXIETY Last administered on 07/03/16 03: 42; Admin Dose 0.5 MG; Start 07/03/16 at 04:00 Bumetanide (Bumex) 1 mg DAILY PO Last administered on 07/03/16 09:07; Admin Dose 1 MG; Start 07/03/16 at 09:00 AMISHA NIETO Jul 03, 2016 09:18
[2016-07-03] MEDS: ALBUTEROL/IPRATROPIUM (NEB) 3 ML AMP HHN SCH ×3 (09:20→20:13)
--- NOTE | 2016-07-03 09:29 | CONS ---
Date/Time of Note Date/Time of Note DATE: 07/03/16 TIME: 09:28 Assessment/Plan Assessment/Plan Chief Complaint/Hosp Course 1. A right ovarian cystic mass. Etiology is unclear, concerning for possible malignancy. PT IS DECLINING SURGERY AT PRESENT 2. Anemia. Continue to monitor hemoglobin and hematocrit levels. + component ACD OBSERVE FOR BLEEDING AND HEMOLYSIS SERVIN / NUMBNESS LUE- RESOLVED CT HEAD- NEG 3. Nonoliguric acute kidney injury on top of chronic kidney disease with a previous baseline renal function around 1.5 to 2 mg/dL. Etiology of acute kidney injury is possibly secondary to urinary retention, obstructive uropathy versus hemodynamics, possible cardiorenal syndrome. The patient's urinalysis shows findings of proteinuria but no pyuria, no hematuria, and a CT scan of the abdomen and pelvis showed no evidence of hydronephrosis. Plan at this point is to check a renal ultrasound. Will repeat UA with microanalysis. Will check urine electrolytes. Will continue supportive care, renally dose medications, avoid nephrotoxins, monitor renal function closely. Clinical albuminuria - PER NEPHROLOGY 4 Urinary retention. Underlying etiology is unclear. The patient is status post Flynn catheter placement with good urinary output. Seen by urology still unable to urinate on intermittent catheterizations URECHOLINE - DOSE INCREASED 5. Acute decompensated diastolic heart failure. The patient noted to have pulmonary congestion, lower extremity edema. The patient is status post Lasix; will continue- PER NEPHRO cardiology F-UP PT IS IV BUMEX AROUND THE CLOCK 6. History of coronary artery disease, status post coronary artery bypass graft. Continue current medical management. 7. Diabetes. Will continue Accu-Cheks, insulin sliding scale, continue Lantus. HB A1C- 8.1.will increase lantus 8. Chronic kidney disease stage IIIB/IV. Etiology is multifactorial secondary to diabetes, hypertension. The patient is currently in acute kidney injury as stated above. Continue medical management. 9. Morbid obesity. Continue dietary modification. 10. Dyslipidemia. Continue statin therapy. 11. Obstructive sleep apnea. Continue supplemental oxygen. Consider a pulmonary consult for evaluation. 12. Hypertension- POORLY CONTROLLED Continue current blood pressure regimen. Will adjust medications as needed. CARDIOLOGY F-UP 13. History of peripheral vascular disease. Continue current medical management. 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 SEVERE DJD/OA WITH CHRONIC PAIN 16. GI PROBLEMS- WITH ABD PAIN, DIARRHEA/ ALTERNATING WITH CONSTIPATION GI F-UP Problems: Consultation Date/Type/Reason Admit Date/Time Jun 09, 2016 at 12:22 Initial Consult Date 06/09/16 Type of Consultation: [facility] Exam/Review of Systems Vital Signs Vitals Vital Signs Date Time Temp Pulse Resp B/P Pulse Ox O2 Delivery O2 Flow Rate FiO2 07/03/16 09:21 88 20 Nasal Cannula 3.0 07/03/16 07:30 97.9 119/74 93 07/01/16 01:23 40 Intake and Output 07/02/16 07/02/16 07/03/16 15:00 23:00 07:00 Intake Total 860 ml 400 ml Output Total 2000 ml 1700 ml Balance -1140 ml -1300 ml Exam HEENT: Head is normocephalic. NECK: Supple. HEART: Regular rate. LUNGS: Showed diminished breath sounds at the base. ABDOMEN: Soft, nontender to palpation. No rebound or guarding. EXTREMITIES: Negative for clubbing or cyanosis. No edema. DERMATOLOGIC: No rashes. MUSCULOSKELETAL: Have no joint effusion. NEUROLOGIC: No change in exam. Results Result Diagram: 07/02/16 1145 07/02/16 1145 Results 24 hrs Laboratory Tests Test 07/02/16 11:17 07/02/16 11:45 07/02/16 17:27 07/02/16 20:55 Bedside Glucose 279 H 138 174 Anion Gap 16 Basophils # 0.0 Basophils % 0.1 Blood Urea Nitrogen 77 H Calcium Level 8.4 Carbon Dioxide Level 27 Chloride Level 102 Creatinine 2.45 H Eosinophils # 0.0 Eosinophils % 0.1 Glucose Level 294 #H Hematocrit 31.3 L Hemoglobin 9.7 L Lymphocytes # 1.5 Lymphocytes % 11.6 L Magnesium Level 2.0 Mean Corpuscular Hemoglobin 31.6 Mean Corpuscular Hemoglobin Concent 31.0 L Mean Corpuscular Volume 102.0 H Mean Platelet Volume 11.8 H Monocytes # 1.4 H Monocytes % 11.5 H Neutrophils # 9.3 H Neutrophils % 74.8 Nucleated Red Blood Cells # 0.1 H Nucleated Red Blood Cells % 0.4 H Phosphorus Level 4.9 Platelet Count 237 Potassium Level 4.2 Red Blood Count 3.07 L Red Cell Distribution Width 15.6 H Sodium Level 141 White Blood Count 12.5 #H Test 07/03/16 07:24 Bedside Glucose 222 H Medications Medications Current Medications Gabapentin (Neurontin) 600 mg TID PO Last administered on 07/03/16 09:04; Admin Dose 600 MG; Start 06/09/16 at 21:00 Pregabalin (Lyrica) 150 mg QHS PO Last administered on 07/02/16 20:49; Admin Dose 150 MG; Start 06/09/16 at 21:00 Valacyclovir HCl (Valtrex) 1,000 mg BID PO Last administered on 07/03/16 09:07 ; Admin Dose 1,000 MG; Start 06/09/16 at 21:00 Miscellaneous Information 1 ea NOTE XX ; Start 06/09/16 at 18:30 Glucose (Glutose) 15 gm Q15M PRN PO DECREASED GLUCOSE; Start 06/09/16 at 18:30 Glucose (Glutose) 22.5 gm Q15M PRN PO DECREASED GLUCOSE; Start 06/09/16 at 18: 30 Dextrose (D50w Syringe) 25 ml Q15M PRN IV DECREASED GLUCOSE; Start 06/09/16 at 18:30 Dextrose (D50w Syringe) 50 ml Q15M PRN IV DECREASED GLUCOSE; Start 06/09/16 at 18:30 Glucagon (Glucagen) 1 mg Q15M PRN IM DECREASED GLUCOSE; Start 06/09/16 at 18:30 Glucose (Glutose) 15 gm Q15M PRN BUCCAL DECREASED GLUCOSE; Start 06/09/16 at 18 :30 Amlodipine Besylate (Norvasc) 10 mg DAILY PO Last administered on 07/03/16 09: 08; Admin Dose 10 MG; Start 06/09/16 at 20:30 Hydromorphone HCl (Dilaudid) 0.5 mg Q4H PRN IV PAIN Last administered on 01:54; Admin Dose 0.5 MG; Start 06/10/16 at 02:30 Pantoprazole (Protonix Tab) 40 mg DAILY@06 PO Last administered on 07/02/16 05: 15; Admin Dose 40 MG; Start 06/11/16 at 06:00 Clonidine (Catapres) 0.2 mg Q6H PRN PO SBP above 160 Last administered on 10:22; Admin Dose 0.2 MG; Start 06/10/16 at 12:17 Hydralazine HCl (Apresoline) 10 mg Q4H PRN IV SBP >170 Last administered on 23:24; Admin Dose 10 MG; Start 06/10/16 at 15:00 Lorazepam (Ativan) 0.5 mg HS PO Last administered on 07/01/16 23:09; Admin Dose 0.5 MG; Start 06/11/16 at 22:00 Bethanechol Chloride (Urecholine) 25 mg TID PO Last administered on 07/03/16 09:04; Admin Dose 25 MG; Start 06/13/16 at 13:00 Linagliptin (Tradjenta) 5 mg DAILY PO Last administered on 07/03/16 09:05; Admin Dose 5 MG; Start 06/16/16 at 09:00 Capsaicin (Theragen) 1 applic QID TOP Last administered on 07/03/16 09:03; Admin Dose 1 APPLIC; Start 06/15/16 at 21:00 Lidocaine (Lidocaine 5% Oint) 1 applic TID PRN TOP ITCHING/PAIN; Start at 15:30 Docusate Sodium (Colace) 100 mg BID PO Last administered on 07/03/16 09:04; Admin Dose 100 MG; Start 06/16/16 at 15:00 Bisacodyl (Dulcolax) 10 mg DAILY PRN PO CONSTIPATION Last administered on 20:44; Admin Dose 10 MG; Start 06/16/16 at 14:00 Guaifenesin/ Dextromethorphan (Robitussin Dm Liquid Cup) 10 ml Q4H PRN PO COUGH ; Start 06/17/16 at 17:30 Fluticasone Propionate (Flonase 0.05% Nasal) 1 spray BID NASAL Last administered on 07/02/16 20:44; Admin Dose 1 SPRAY; Start 06/19/16 at 09:00 Lisinopril (Zestril) 20 mg DAILY PO Last administered on 06/23/16 08:24; Admin Dose 20 MG; Start 06/22/16 at 09:00; Status Future Hold Atorvastatin Calcium (Lipitor) 40 mg HS PO Last administered on 07/02/16 20:45 ; Admin Dose 40 MG; Start 06/22/16 at 21:00 Morphine Sulfate (morphine) 2 mg Q4H PRN IV pain Last administered on 06/25/16 01:58; Admin Dose 2 MG; Start 06/22/16 at 10:30 Methyldopa (Aldomet) 500 mg BID PO Last administered on 07/03/16 09:06; Admin Dose 500 MG; Start 06/26/16 at 09:00 Diltiazem HCl (Cardizem Cd) 240 mg DAILY PO Last administered on 07/03/16 09: 05; Admin Dose 240 MG; Start 07/01/16 at 12:00 Apixaban (Eliquis) 2.5 mg BID PO Last administered on 07/03/16 09:06; Admin Dose 2.5 MG; Start 07/01/16 at 09:30 Insulin Glargine (Lantus) 46 unit BID@08,20 SC Last administered on 07/03/16 09:12; Admin Dose 46 UNIT; Start 07/01/16 at 20:00 Lorazepam (Ativan) 0.5 mg Q8H PRN PO ANXIETY Last administered on 07/03/16 03: 42; Admin Dose 0.5 MG; Start 07/03/16 at 04:00 Bumetanide (Bumex) 1 mg DAILY PO Last administered on 07/03/16 09:07; Admin Dose 1 MG; Start 07/03/16 at 09:00 SHARLA SOUSA MD Jul 03, 2016 09:28
[2016-07-03 09:51] LABS: ADD SCAN DIFF NO
[2016-07-03 09:56] LABS: BASOPHILS % 0.1 % (0.0-2.0); EOSINOPHILS # 0.1 10^3/ul (0.0-0.5); EOSINOPHILS % 0.9 % (0.0-7.0); HEMATOCRIT 31.4 % (37.0-47.0); HEMOGLOBIN 9.7 g/dl (12.0-16.0); LYMPHOCYTES # 2.3 10^3/ul (0.8-2.9); LYMPHOCYTES % 21.3 % (15.0-51.0); MEAN CORPUSCULAR HEMOGLOBIN 31.6 pg (29.0-33.0); MEAN CORPUSCULAR HGB CONC 30.9 g/dl (32.0-37.0); MEAN CORPUSCULAR VOLUME 102.3 fl (82.0-101.0); MEAN PLATELET VOLUME 11.4 fl (7.4-10.4); MONOCYTE # 1.1 10^3/ul (0.3-0.9); MONOCYTES % 10.4 % (0.0-11.0); NEUTROPHIL # 7.2 10^3/ul (1.6-7.5); NEUTROPHILS % 66.1 % (39.0-77.0); NUCLEATED RED BLOOD CELLS% 0.3 /100WBC (0.0-0.0); PLATELET COUNT 221 10^3/UL (140-415); RED BLOOD COUNT 3.07 10^6/ul (4.20-5.40); RED CELL DISTRIBUTION WIDTH 15.8 % (11.5-14.5); WHITE BLOOD COUNT 10.9 10^3/ul (4.8-10.8)
[2016-07-03 10:27] LABS: POTASSIUM 4.2 mmol/L (3.5-5.1)
[2016-07-03 10:29] LABS: CREATININE 2.4 mg/dl (0.44-1.00)
[2016-07-03 10:32] LABS: CALCIUM 8.3 mg/dl (8.4-10.2); MAGNESIUM 1.9 mg/dl (1.7-2.5); PHOSPHORUS 5.3 mg/dl (2.5-4.9)
--- NOTE | 2016-07-03 11:58 | CONS ---
Date/Time of Note Date/Time of Note DATE: 07/03/16 TIME: 11:54 Assessment/Plan Assessment/Plan Additional Assessment/Plan Assessment and recommendations; 1. Patient admitted for urinary retention discovered to have right ovarian mass on CT of the abdomen. Patient having refused surgery on account of her multiple underlying comorbidities. 2. Multiple other stable comorbidities include CHF, renal insufficiency, diabetes, chronic hypoxemia as well as severe underlying sleep apnea. 3. Patient has significant O2 desaturation on room air at rest, pulse oximetry was just checked a short while ago , saturation is 85% which would qualify her for home oxygen. Repeat ABG is not necessary. Patient can be discharged home on home O2 with continuation of current treatment. She is off systemic steroids. Overall prognosis is guarded. Consultation Date/Type/Reason Admit Date/Time Jun 09, 2016 at 12:22 Initial Consult Date 06/10/16 Type of Consultation: Pulmonary 24 HR Interval Summary Free Text/Dictation Patient condition stable. Complains of dyspnea on minimal exertion. Denies any wheezing, sputum production chest pain. General exam; elderly lady, currently in no distress. Sitting in a chair by bedside. Exam/Review of Systems Vital Signs Vitals Vital Signs Date Time Temp Pulse Resp B/P Pulse Ox O2 Delivery O2 Flow Rate FiO2 07/03/16 11:23 98.1 96 18 105/99 92 07/03/16 09:21 Nasal Cannula 3.0 07/01/16 01:23 40 Intake and Output 07/02/16 07/02/16 07/03/16 15:00 23:00 07:00 Intake Total 860 ml 400 ml Output Total 2000 ml 1700 ml Balance -1140 ml -1300 ml Exam HEENT exam is; supple neck, JVD difficult to see because of short neck. Pharynx is clear. No neck masses. Chest examination MN: Diminished breath sounds throughout. No added sounds. S1 -S2 audible. No murmurs. Regular rhythm. There is a well-healed sternal scar. Abdomen examination; protuberant. Nontender. Bowel sounds audible. Extremity exam; stable 2+ nonpitting lower extremity edema bilaterally. [employer] exam is; no focal deficit. Results Result Diagram: 07/03/16 0923 07/03/16 0923 Results 24 hrs Laboratory Tests Test 07/02/16 17:27 07/02/16 20:55 07/03/16 07:24 07/03/16 09:23 Bedside Glucose 138 174 222 H Anion Gap 15 Basophils # 0.0 Basophils % 0.1 Blood Urea Nitrogen 79 H Calcium Level 8.3 L Carbon Dioxide Level 28 Chloride Level 101 Creatinine 2.40 H Eosinophils # 0.1 Eosinophils % 0.9 Glucose Level 175 # Hematocrit 31.4 L Hemoglobin 9.7 L Lymphocytes # 2.3 Lymphocytes % 21.3 Magnesium Level 1.9 Mean Corpuscular Hemoglobin 31.6 Mean Corpuscular Hemoglobin Concent 30.9 L Mean Corpuscular Volume 102.3 H Mean Platelet Volume 11.4 H Monocytes # 1.1 H Monocytes % 10.4 Neutrophils # 7.2 Neutrophils % 66.1 Nucleated Red Blood Cells # 0.0 Nucleated Red Blood Cells % 0.3 H Phosphorus Level 5.3 H Platelet Count 221 Potassium Level 4.2 Red Blood Count 3.07 L Red Cell Distribution Width 15.8 H Sodium Level 140 White Blood Count 10.9 H Test 07/03/16 11:47 Bedside Glucose 188 Medications Medications Current Medications Gabapentin (Neurontin) 600 mg TID PO Last administered on 07/03/16 09:04; Admin Dose 600 MG; Start 06/09/16 at 21:00 Pregabalin (Lyrica) 150 mg QHS PO Last administered on 07/02/16 20:49; Admin Dose 150 MG; Start 06/09/16 at 21:00 Valacyclovir HCl (Valtrex) 1,000 mg BID PO Last administered on 07/03/16 09:07 ; Admin Dose 1,000 MG; Start 06/09/16 at 21:00 Miscellaneous Information 1 ea NOTE XX ; Start 06/09/16 at 18:30 Glucose (Glutose) 15 gm Q15M PRN PO DECREASED GLUCOSE; Start 06/09/16 at 18:30 Glucose (Glutose) 22.5 gm Q15M PRN PO DECREASED GLUCOSE; Start 06/09/16 at 18: 30 Dextrose (D50w Syringe) 25 ml Q15M PRN IV DECREASED GLUCOSE; Start 06/09/16 at 18:30 Dextrose (D50w Syringe) 50 ml Q15M PRN IV DECREASED GLUCOSE; Start 06/09/16 at 18:30 Glucagon (Glucagen) 1 mg Q15M PRN IM DECREASED GLUCOSE; Start 06/09/16 at 18:30 Glucose (Glutose) 15 gm Q15M PRN BUCCAL DECREASED GLUCOSE; Start 06/09/16 at 18 :30 Amlodipine Besylate (Norvasc) 10 mg DAILY PO Last administered on 07/03/16 09: 08; Admin Dose 10 MG; Start 06/09/16 at 20:30 Hydromorphone HCl (Dilaudid) 0.5 mg Q4H PRN IV PAIN Last administered on 01:54; Admin Dose 0.5 MG; Start 06/10/16 at 02:30 Pantoprazole (Protonix Tab) 40 mg DAILY@06 PO Last administered on 07/02/16 05: 15; Admin Dose 40 MG; Start 06/11/16 at 06:00 Clonidine (Catapres) 0.2 mg Q6H PRN PO SBP above 160 Last administered on 10:22; Admin Dose 0.2 MG; Start 06/10/16 at 12:17 Hydralazine HCl (Apresoline) 10 mg Q4H PRN IV SBP >170 Last administered on 23:24; Admin Dose 10 MG; Start 06/10/16 at 15:00 Lorazepam (Ativan) 0.5 mg HS PO Last administered on 07/01/16 23:09; Admin Dose 0.5 MG; Start 06/11/16 at 22:00 Bethanechol Chloride (Urecholine) 25 mg TID PO Last administered on 07/03/16 09:04; Admin Dose 25 MG; Start 06/13/16 at 13:00 Linagliptin (Tradjenta) 5 mg DAILY PO Last administered on 07/03/16 09:05; Admin Dose 5 MG; Start 06/16/16 at 09:00 Capsaicin (Theragen) 1 applic QID TOP Last administered on 07/03/16 09:03; Admin Dose 1 APPLIC; Start 06/15/16 at 21:00 Lidocaine (Lidocaine 5% Oint) 1 applic TID PRN TOP ITCHING/PAIN; Start at 15:30 Docusate Sodium (Colace) 100 mg BID PO Last administered on 07/03/16 09:04; Admin Dose 100 MG; Start 06/16/16 at 15:00 Bisacodyl (Dulcolax) 10 mg DAILY PRN PO CONSTIPATION Last administered on 20:44; Admin Dose 10 MG; Start 06/16/16 at 14:00 Guaifenesin/ Dextromethorphan (Robitussin Dm Liquid Cup) 10 ml Q4H PRN PO COUGH ; Start 06/17/16 at 17:30 Fluticasone Propionate (Flonase 0.05% Nasal) 1 spray BID NASAL Last administered on 07/02/16 20:44; Admin Dose 1 SPRAY; Start 06/19/16 at 09:00 Lisinopril (Zestril) 20 mg DAILY PO Last administered on 06/23/16 08:24; Admin Dose 20 MG; Start 06/22/16 at 09:00; Status Future Hold Atorvastatin Calcium (Lipitor) 40 mg HS PO Last administered on 07/02/16 20:45 ; Admin Dose 40 MG; Start 06/22/16 at 21:00 Morphine Sulfate (morphine) 2 mg Q4H PRN IV pain Last administered on 06/25/16 01:58; Admin Dose 2 MG; Start 06/22/16 at 10:30 Methyldopa (Aldomet) 500 mg BID PO Last administered on 07/03/16 09:06; Admin Dose 500 MG; Start 06/26/16 at 09:00 Diltiazem HCl (Cardizem Cd) 240 mg DAILY PO Last administered on 07/03/16 09: 05; Admin Dose 240 MG; Start 07/01/16 at 12:00 Apixaban (Eliquis) 2.5 mg BID PO Last administered on 07/03/16 09:06; Admin Dose 2.5 MG; Start 07/01/16 at 09:30 Insulin Glargine (Lantus) 46 unit BID@08,20 SC Last administered on 07/03/16 09:12; Admin Dose 46 UNIT; Start 07/01/16 at 20:00 Lorazepam (Ativan) 0.5 mg Q8H PRN PO ANXIETY Last administered on 07/03/16 03: 42; Admin Dose 0.5 MG; Start 07/03/16 at 04:00 Bumetanide (Bumex) 1 mg DAILY PO Last administered on 07/03/16 09:07; Admin Dose 1 MG; Start 07/03/16 at 09:00 JAYME POP Jul 03, 2016 11:58
--- NOTE | 2016-07-03 14:30 | EN ---
Date/Time of Note Date/Time of Note DATE: 07/03/16 TIME: 14:27 Event Note Medicine Medicine Event Note Patient would benefit from a noninvasive positive pressure ventilation device owing to acute on chronic hypercapnic/hypoxemic respiratory failure due to severe COPD. Patient also needs to be on supplemental oxygen as her O2 saturation on room air is 85%. JAYME POP Jul 03, 2016 14:30
[2016-07-03] MEDS: LORAZEPAM 0.5 MG TAB PO SCH (21:00)
[2016-07-03] MEDS: PREGABALIN 75 MG CAP PO SCH (21:41)
[2016-07-03] MEDS: ATORVASTATIN 40 MG TAB PO SCH (21:41)
[2016-07-04] VITALS (17 sets, daily range): BP systolic 104–146; BP diastolic 56–123; PULSE 88–177; RESP 18–20
[2016-07-04] MEDS: INSULIN GLARGINE [LANtus] 3 ML PEN SC SCH ×3 (00:18→20:50)
[2016-07-04] MEDS: PANTOPRAZOLE (EC) 40 MG TAB PO SCH (06:09)
[2016-07-04 06:10] LABS: ADD SCAN DIFF NO
[2016-07-04 06:14] LABS: BASOPHILS % 0.2 % (0.0-2.0); EOSINOPHILS # 0.2 10^3/ul (0.0-0.5); EOSINOPHILS % 1.4 % (0.0-7.0); HEMATOCRIT 32.7 % (37.0-47.0); HEMOGLOBIN 10.1 g/dl (12.0-16.0); LYMPHOCYTES % 17.6 % (15.0-51.0); MEAN CORPUSCULAR HEMOGLOBIN 31.8 pg (29.0-33.0); MEAN CORPUSCULAR HGB CONC 30.9 g/dl (32.0-37.0); MEAN CORPUSCULAR VOLUME 102.8 fl (82.0-101.0); MEAN PLATELET VOLUME 11.6 fl (7.4-10.4); MONOCYTE # 1.4 10^3/ul (0.3-0.9); MONOCYTES % 12.2 % (0.0-11.0); NEUTROPHIL # 7.5 10^3/ul (1.6-7.5); NEUTROPHILS % 67.8 % (39.0-77.0); PLATELET COUNT 231 10^3/UL (140-415); RED BLOOD COUNT 3.18 10^6/ul (4.20-5.40); RED CELL DISTRIBUTION WIDTH 15.8 % (11.5-14.5); WHITE BLOOD COUNT 11.1 10^3/ul (4.8-10.8)
[2016-07-04] MEDS: INSULIN ASPART [NOVOLOG] 3 ML PEN SC SCH ×8 (07:55→20:34)
--- NOTE | 2016-07-04 08:07 | PN ---
DATE: 07/04/2016 SUBJECTIVE: The patient is lethargic this morning, but arousable to deep stimuli. The patient was up all night, did not sleep until recently. No other events noted. No hemoptysis, hematemesis or he matochezia. OBJECTIVE: VITAL SIGNS: Blood pressure 104/56, respirations 18, pulse 92, temperature 98.6. HEENT: Head is normocephalic. NECK: Supple. HEART: Regular rate. LUNGS: Showed diminished breath sounds at the base. ABDOMEN: Soft, nontender to palpation. No rebound or guarding. EXTREMITIES: Negative for clubbing or cyanosis. No edema. DERMATOLOGIC: No rashes. MUSCULOSKELETAL: Have no joint effusion. NEUROLOGIC: No change in exam. MEDICATIONS: The patient's medications have been reviewed. LABORATORY DATA: Shows a white count of 11.1, hemoglobin 10.1, hematocrit 32.7, platelet count 231. ASSESSMENT AND PLAN: 1. Acute hypoxemic hypercarbic respiratory failure secondary to chronic obstructive pulmonary disea se exacerbation, sleep apnea and diastolic heart failure. The patient is clinically improving. Con tinue nasal cannula. Continue CPAP at night. 2. Nonoliguric acute kidney injury on top of chronic kidney disease stage IV. Etiology of acute ki dney injury is secondary to hemodynamics. Renal function has been fluctuating, but overall improved . Will continue to monitor closely. Continue supportive care, renally dose all meds, avoid nephrot oxins. 3. Acute decompensated heart failure. The patient is nearing euvolemic status. Continue the [facility] management. Follow up with cardiology. 4. Hypertension. Continue the current blood pressure regimen. 5. Anemia. Continue to monitor hemoglobin and hematocrit levels. 6. Diabetes. The patient's glucose levels have been fluctuating. The patient has been noncomplian t. Lantus levels have been adjusted. Will continue to monitor. 7. History of coronary artery disease. Continue the current medical management. 8. Chronic kidney disease stage IV secondary to diabetes and hypertension. Continue the current tr eatment plan, as stated above. 9. Morbid obesity. Continue dietary modification. 10. Sleep apnea. Continue CPAP. 11. Dyslipidemia. Continue statin therapy. 12. Neuropathy. Continue Lyrica. 13. Dyslipidemia. Continue statin therapy. 14. Gastrointestinal and deep venous thrombosis prophylaxis. Continue proton pump inhibitor and Lo venox. Dictated By: CRISTA GAINES/BIRGIT Conf#: [id number] DID#: [id number]
[2016-07-04 08:27] LABS: POTASSIUM 4.2 mmol/L (3.5-5.1)
[2016-07-04 08:30] LABS: CALCIUM 8.2 mg/dl (8.4-10.2); CREATININE 2.36 mg/dl (0.44-1.00)
[2016-07-04] MEDS: METHYLDOPA 250 MG TAB PO SCH ×2 (09:00→20:30)
[2016-07-04] MEDS: DILTIAZEM (CD) 240 MG CAP PO SCH (09:00)
[2016-07-04] MEDS: AMLODIPINE 10 MG TAB PO SCH (09:00)
[2016-07-04] MEDS: DOCUSATE SODIUM 100 MG CAP PO SCH ×2 (09:08→20:27)
[2016-07-04] MEDS: APIXABAN 5 MG TABLET PO SCH ×2 (09:08→20:32)
[2016-07-04] MEDS: VALACYCLOVIR 500 MG TAB PO SCH ×2 (09:09→20:30)
[2016-07-04] MEDS: BETHANECHOL 25 MG TAB PO SCH ×4 (09:09→20:27)
[2016-07-04] MEDS: BUMETANIDE 1 MG TAB PO SCH (09:09)
[2016-07-04] MEDS: FLUTICASONE 0.05% 16 GM NAS SPRAY NASAL SCH ×2 (09:10→20:30)
[2016-07-04] MEDS: CAPSAICIN 0.025% 60 GM CR TOP SCH ×4 (09:10→20:35)
[2016-07-04] MEDS: GABAPENTIN 300 MG CAP PO SCH ×4 (09:10→20:30)
[2016-07-04] MEDS: LINAGLIPTIN 5 MG TABLET PO SCH (09:10)
[2016-07-04] MEDS: ALBUTEROL/IPRATROPIUM (NEB) 3 ML AMP HHN SCH ×3 (11:03→20:00)
--- NOTE | 2016-07-04 19:49 | CONS ---
Date/Time of Note Date/Time of Note DATE: 07/04/16 TIME: 19:47 Assessment/Plan Assessment/Plan Chief Complaint/Hosp Course 1. A right ovarian cystic mass. Etiology is unclear, concerning for possible malignancy. PT IS DECLINING SURGERY AT PRESENT 2. Anemia. Continue to monitor hemoglobin and hematocrit levels. + component ACD OBSERVE FOR BLEEDING AND HEMOLYSIS SERVIN / NUMBNESS LUE- RESOLVED CT HEAD- NEG 3. Nonoliguric acute kidney injury on top of chronic kidney disease with a previous baseline renal function around 1.5 to 2 mg/dL. Etiology of acute kidney injury is possibly secondary to urinary retention, obstructive uropathy versus hemodynamics, possible cardiorenal syndrome. The patient's urinalysis shows findings of proteinuria but no pyuria, no hematuria, and a CT scan of the abdomen and pelvis showed no evidence of hydronephrosis. Plan at this point is to check a renal ultrasound. Will repeat UA with microanalysis. Will check urine electrolytes. Will continue supportive care, renally dose medications, avoid nephrotoxins, monitor renal function closely. Clinical albuminuria - PER NEPHROLOGY 4 Urinary retention. Underlying etiology is unclear. The patient is status post Flynn catheter placement with good urinary output. Seen by urology still unable to urinate on intermittent catheterizations URECHOLINE - DOSE INCREASED 5. Acute decompensated diastolic heart failure. The patient noted to have pulmonary congestion, lower extremity edema. The patient is status post Lasix; will continue- PER NEPHRO cardiology F-UP PT IS IV BUMEX AROUND THE CLOCK 6. History of coronary artery disease, status post coronary artery bypass graft. Continue current medical management. 7. Diabetes. Will continue Accu-Cheks, insulin sliding scale, continue Lantus. HB A1C- 8.1.will increase lantus 8. Chronic kidney disease stage IIIB/IV. Etiology is multifactorial secondary to diabetes, hypertension. The patient is currently in acute kidney injury as stated above. Continue medical management. 9. Morbid obesity. Continue dietary modification. 10. Dyslipidemia. Continue statin therapy. 11. Obstructive sleep apnea. Continue supplemental oxygen. Consider a pulmonary consult for evaluation. 12. Hypertension- POORLY CONTROLLED Continue current blood pressure regimen. Will adjust medications as needed. CARDIOLOGY F-UP 13. History of peripheral vascular disease. Continue current medical management. 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 SEVERE DJD/OA WITH CHRONIC PAIN 16. GI PROBLEMS- WITH ABD PAIN, DIARRHEA/ ALTERNATING WITH CONSTIPATION GI F-UP Problems: Consultation Date/Type/Reason Admit Date/Time Jun 09, 2016 at 12:22 Initial Consult Date 06/09/16 Type of Consultation: hemeonc 24 HR Interval Summary Free Text/Dictation Doing ok Exam/Review of Systems Vital Signs Vitals Vital Signs Date Time Temp Pulse Resp B/P Pulse Ox O2 Delivery O2 Flow Rate FiO2 07/04/16 19:00 Nasal Cannula 3.5 07/04/16 17:46 32 07/04/16 16:34 105 07/04/16 16:04 98.6 18 128/67 95 Intake and Output 07/03/16 07/03/16 07/04/16 15:00 23:00 07:00 Intake Total 900 ml 500 ml Balance 900 ml 500 ml Exam HEENT: Head is normocephalic. NECK: Supple. HEART: Regular rate. LUNGS: Showed diminished breath sounds at the base. ABDOMEN: Soft, nontender to palpation. No rebound or guarding. EXTREMITIES: Negative for clubbing or cyanosis. No edema. DERMATOLOGIC: No rashes. MUSCULOSKELETAL: Have no joint effusion. NEUROLOGIC: No change in exam. Results Result Diagram: 07/04/16 0531 07/04/16 0547 Results 24 hrs Laboratory Tests Test 07/03/16 21:37 07/04/16 05:31 07/04/16 05:47 07/04/16 08:47 Bedside Glucose 97 125 Basophils # 0.0 Basophils % 0.2 Eosinophils # 0.2 Eosinophils % 1.4 Hematocrit 32.7 L Hemoglobin 10.1 L Lymphocytes # 2.0 Lymphocytes % 17.6 Mean Corpuscular Hemoglobin 31.8 Mean Corpuscular Hemoglobin Concent 30.9 L Mean Corpuscular Volume 102.8 H Mean Platelet Volume 11.6 H Monocytes # 1.4 H Monocytes % 12.2 H Neutrophils # 7.5 Neutrophils % 67.8 Nucleated Red Blood Cells # 0.0 Nucleated Red Blood Cells % 0.0 Platelet Count 231 Red Blood Count 3.18 L Red Cell Distribution Width 15.8 H White Blood Count 11.1 H Anion Gap 15 Blood Urea Nitrogen 81 H Calcium Level 8.2 L Carbon Dioxide Level 31 Chloride Level 102 Creatinine 2.36 H Glucose Level 144 Potassium Level 4.2 Sodium Level 144 Test 07/04/16 11:37 07/04/16 17:50 07/04/16 18:40 Bedside Glucose 168 88 111 Medications Medications Current Medications Gabapentin (Neurontin) 600 mg TID PO Last administered on 07/04/16 09:10; Admin Dose 600 MG; Start 06/09/16 at 21:00 Pregabalin (Lyrica) 150 mg QHS PO Last administered on 07/03/16 21:41; Admin Dose 150 MG; Start 06/09/16 at 21:00 Valacyclovir HCl (Valtrex) 1,000 mg BID PO Last administered on 07/04/16 09:09 ; Admin Dose 1,000 MG; Start 06/09/16 at 21:00 Miscellaneous Information 1 ea NOTE XX ; Start 06/09/16 at 18:30 Glucose (Glutose) 15 gm Q15M PRN PO DECREASED GLUCOSE; Start 06/09/16 at 18:30 Glucose (Glutose) 22.5 gm Q15M PRN PO DECREASED GLUCOSE; Start 06/09/16 at 18: 30 Dextrose (D50w Syringe) 25 ml Q15M PRN IV DECREASED GLUCOSE; Start 06/09/16 at 18:30 Dextrose (D50w Syringe) 50 ml Q15M PRN IV DECREASED GLUCOSE; Start 06/09/16 at 18:30 Glucagon (Glucagen) 1 mg Q15M PRN IM DECREASED GLUCOSE; Start 06/09/16 at 18:30 Glucose (Glutose) 15 gm Q15M PRN BUCCAL DECREASED GLUCOSE; Start 06/09/16 at 18 :30 Amlodipine Besylate (Norvasc) 10 mg DAILY PO Last administered on 07/03/16 09: 08; Admin Dose 10 MG; Start 06/09/16 at 20:30 Hydromorphone HCl (Dilaudid) 0.5 mg Q4H PRN IV PAIN Last administered on 01:54; Admin Dose 0.5 MG; Start 06/10/16 at 02:30 Pantoprazole (Protonix Tab) 40 mg DAILY@06 PO Last administered on 07/04/16 06 :09; Admin Dose 40 MG; Start 06/11/16 at 06:00 Clonidine (Catapres) 0.2 mg Q6H PRN PO SBP above 160 Last administered on 10:22; Admin Dose 0.2 MG; Start 06/10/16 at 12:17 Hydralazine HCl (Apresoline) 10 mg Q4H PRN IV SBP >170 Last administered on 23:24; Admin Dose 10 MG; Start 06/10/16 at 15:00 Lorazepam (Ativan) 0.5 mg HS PO Last administered on 07/01/16 23:09; Admin Dose 0.5 MG; Start 06/11/16 at 22:00 Bethanechol Chloride (Urecholine) 25 mg TID PO Last administered on 07/04/16 09:09; Admin Dose 25 MG; Start 06/13/16 at 13:00 Linagliptin (Tradjenta) 5 mg DAILY PO Last administered on 07/04/16 09:10; Admin Dose 5 MG; Start 06/16/16 at 09:00 Capsaicin (Theragen) 1 applic QID TOP Last administered on 07/04/16 17:54; Admin Dose 1 APPLIC; Start 06/15/16 at 21:00 Lidocaine (Lidocaine 5% Oint) 1 applic TID PRN TOP ITCHING/PAIN; Start at 15:30 Docusate Sodium (Colace) 100 mg BID PO Last administered on 07/04/16 09:08; Admin Dose 100 MG; Start 06/16/16 at 15:00 Bisacodyl (Dulcolax) 10 mg DAILY PRN PO CONSTIPATION Last administered on 20:44; Admin Dose 10 MG; Start 06/16/16 at 14:00 Guaifenesin/ Dextromethorphan (Robitussin Dm Liquid Cup) 10 ml Q4H PRN PO COUGH ; Start 06/17/16 at 17:30 Fluticasone Propionate (Flonase 0.05% Nasal) 1 spray BID NASAL Last administered on 07/04/16 09:10; Admin Dose 1 SPRAY; Start 06/19/16 at 09:00 Atorvastatin Calcium (Lipitor) 40 mg HS PO Last administered on 07/03/16 21:41 ; Admin Dose 40 MG; Start 06/22/16 at 21:00 Morphine Sulfate (morphine) 2 mg Q4H PRN IV pain Last administered on 06/25/16 01:58; Admin Dose 2 MG; Start 06/22/16 at 10:30 Methyldopa (Aldomet) 500 mg BID PO Last administered on 07/03/16 21:42; Admin Dose 500 MG; Start 06/26/16 at 09:00 Diltiazem HCl (Cardizem Cd) 240 mg DAILY PO Last administered on 07/03/16 09: 05; Admin Dose 240 MG; Start 07/01/16 at 12:00 Apixaban (Eliquis) 2.5 mg BID PO Last administered on 07/04/16 09:08; Admin Dose 2.5 MG; Start 07/01/16 at 09:30 Insulin Glargine (Lantus) 46 unit BID@08,20 SC Last administered on 07/04/16 08:56; Admin Dose 46 UNIT; Start 07/01/16 at 20:00 Lorazepam (Ativan) 0.5 mg Q8H PRN PO ANXIETY Last administered on 07/03/16 03: 42; Admin Dose 0.5 MG; Start 07/03/16 at 04:00 Bumetanide (Bumex) 1 mg DAILY PO Last administered on 07/04/16 09:09; Admin Dose 1 MG; Start 07/03/16 at 09:00 SHARLA SOUSA MD Jul 04, 2016 19:49
[2016-07-04] MEDS: ATORVASTATIN 40 MG TAB PO SCH (20:30)
[2016-07-04] MEDS: LORAZEPAM 0.5 MG TAB PO SCH (20:31)
[2016-07-04] MEDS: PREGABALIN 75 MG CAP PO SCH (20:31)
[2016-07-04] MEDS: HYDROmorphONE 1 MG/ML SYG IV PRN (22:08)
[2016-07-04 22:40] LABS: AADO2 Arterial 538.8 mmHg (7.0-24.0); Allen Test ACCEPTAB; Arterial Base Excess 0.4 mmol/L (-3.0-3); Arterial COHb 0.1 % (0.0-3.0); Arterial Fraction of Oxyhgb 97.7 % (93.0-99.0); Arterial HCO3 26.5 mmol/L (22.0-26.0); Arterial MetHb 0.2 % (0.0-1.5); Arterial Total Hemglobin 12.4 g/dl (12.0-18.0); MODE MASK - NRB
[2016-07-04 22:50] LABS: ADD SCAN DIFF NO
[2016-07-04 22:56] LABS: BASOPHILS % 0.1 % (0.0-2.0); EOSINOPHILS # 0.1 10^3/ul (0.0-0.5); EOSINOPHILS % 0.7 % (0.0-7.0); HEMOGLOBIN 11.5 g/dl (12.0-16.0); LYMPHOCYTES # 0.8 10^3/ul (0.8-2.9); LYMPHOCYTES % 6.9 % (15.0-51.0); MEAN CORPUSCULAR HEMOGLOBIN 32.5 pg (29.0-33.0); MEAN CORPUSCULAR HGB CONC 31.9 g/dl (32.0-37.0); MEAN CORPUSCULAR VOLUME 101.7 fl (82.0-101.0); MEAN PLATELET VOLUME 11.5 fl (7.4-10.4); MONOCYTE # 0.3 10^3/ul (0.3-0.9); MONOCYTES % 2.8 % (0.0-11.0); NEUTROPHIL # 9.7 10^3/ul (1.6-7.5); NEUTROPHILS % 88.3 % (39.0-77.0); NUCLEATED RED BLOOD CELLS% 0.3 /100WBC (0.0-0.0); PLATELET COUNT 228 10^3/UL (140-415); RED BLOOD COUNT 3.54 10^6/ul (4.20-5.40); RED CELL DISTRIBUTION WIDTH 15.8 % (11.5-14.5)
[2016-07-04] MEDS ORDERED: DILTIAZEM 25 MG INJ IV ONE (23:00)
[2016-07-04 23:02] LABS: POTASSIUM 4.6 mmol/L (3.5-5.1)
[2016-07-04 23:05] LABS: CREATININE 2.58 mg/dl (0.44-1.00)
[2016-07-04 23:06] LABS: CALCIUM 8.7 mg/dl (8.4-10.2)
[2016-07-04 23:07] LABS: D-DIMER 2174.73 ng/ml (<460)
[2016-07-04 23:18] LABS: TROPONIN-I 0.055 ng/ml (0.00-0.12)
--- NOTE | 2016-07-04 23:18 | EN ---
Date/Time of Note Date/Time of Note DATE: 07/04/16 TIME: 23:00 ER Progress Note RAPID RESPONSE: Called overhead for Rapid Response to Room #509. A morbidly obese female was in apparent respiratory distress. Team getting her on O2 via Mask. Heart rate in the 170s-180s. Unable to get a Blood Pressure as patient is shaking/quivvering. Not jerking as in a seizure. O2 sat was 81% and remained low for a couple of minutes. She was not cyanotic, but I called for an ER Physician to come up to intubate patient, but her sats started coming up, eventually to 100%. ABG and Labs ordered. ABG essentially normal. EKG obtained, A-Fib with RVR at 179. Patient treated with 20mg Cardizem IV and her rate came right down to 90 and she looked much better. No longer shaking. Plans were made to move her to the ICU. Heart rate was at 121 when we were leaving her room. After arrival to ICU, I spoke with Dr. Munson and updated him on his patient. JAEL CORONEL DO Jul 04, 2016 23:18
[2016-07-05] VITALS (26 sets, daily range): BP systolic 96–154; BP diastolic 45–109; PULSE 71–134; RESP 13–24
[2016-07-05] MEDS ORDERED: ACETAMINOPHEN 650 MG SUPP PR PRN
[2016-07-05] MEDS ORDERED: DIGOXIN 500 MCG INJ IV ONE
[2016-07-05 00:42] LABS: ADD SCAN DIFF NO
[2016-07-05 00:47] LABS: BASOPHILS % 0.1 % (0.0-2.0); EOSINOPHILS # 0.1 10^3/ul (0.0-0.5); EOSINOPHILS % 0.9 % (0.0-7.0); HEMATOCRIT 31.7 % (37.0-47.0); HEMOGLOBIN 10.3 g/dl (12.0-16.0); LYMPHOCYTES # 0.7 10^3/ul (0.8-2.9); LYMPHOCYTES % 5.8 % (15.0-51.0); MEAN CORPUSCULAR HEMOGLOBIN 32.8 pg (29.0-33.0); MEAN CORPUSCULAR HGB CONC 32.5 g/dl (32.0-37.0); MONOCYTE # 1.4 10^3/ul (0.3-0.9); MONOCYTES % 11.7 % (0.0-11.0); NEUTROPHIL # 9.3 10^3/ul (1.6-7.5); NEUTROPHILS % 80.5 % (39.0-77.0); PLATELET COUNT 196 10^3/UL (140-415); RED BLOOD COUNT 3.14 10^6/ul (4.20-5.40); RED CELL DISTRIBUTION WIDTH 15.8 % (11.5-14.5); WHITE BLOOD COUNT 11.5 10^3/ul (4.8-10.8)
[2016-07-05 00:57] LABS: POTASSIUM 4.4 mmol/L (3.5-5.1)
[2016-07-05 00:59] LABS: CREATININE 2.64 mg/dl (0.44-1.00)
[2016-07-05 01:00] LABS: CALCIUM 8.5 mg/dl (8.4-10.2)
[2016-07-05] MEDS: DEXTROSE 5% 1,000 ML IV SCH (01:21)
[2016-07-05] MEDS ORDERED: ACETAMINOPHEN 1000MG/100ML IV 100 ML IVPB PRN (01:30)
[2016-07-05] MEDS ORDERED: PIPER-TAZO 3.375 GM IV (PMX) 100 ML IVPB SCH ×2 (02:00→06:00)
[2016-07-05 05:04] LABS: ADD SCAN DIFF NO
[2016-07-05 05:15] LABS: ABNORMAL IP MESSAGE 1; BASOPHILS % 0.1 % (0.0-2.0); EOSINOPHILS # 0.1 10^3/ul (0.0-0.5); EOSINOPHILS % 0.8 % (0.0-7.0); HEMATOCRIT 30.4 % (37.0-47.0); HEMOGLOBIN 9.4 g/dl (12.0-16.0); LYMPHOCYTES # 1.1 10^3/ul (0.8-2.9); LYMPHOCYTES % 9.5 % (15.0-51.0); MEAN CORPUSCULAR HGB CONC 30.9 g/dl (32.0-37.0); MEAN CORPUSCULAR VOLUME 103.4 fl (82.0-101.0); MEAN PLATELET VOLUME 11.7 fl (7.4-10.4); MONOCYTE # 1.9 10^3/ul (0.3-0.9); NEUTROPHIL # 8.4 10^3/ul (1.6-7.5); NUCLEATED RED BLOOD CELLS% 0.2 /100WBC (0.0-0.0); PLATELET COUNT 173 10^3/UL (140-415); RED BLOOD COUNT 2.94 10^6/ul (4.20-5.40); RED CELL DISTRIBUTION WIDTH 15.9 % (11.5-14.5); WHITE BLOOD COUNT 11.6 10^3/ul (4.8-10.8)
[2016-07-05 05:26] LABS: POTASSIUM 4.3 mmol/L (3.5-5.1)
[2016-07-05 05:29] LABS: CREATININE 2.61 mg/dl (0.44-1.00); PHOSPHORUS 5.1 mg/dl (2.5-4.9)
[2016-07-05 05:30] LABS: MAGNESIUM 2.2 mg/dl (1.7-2.5)
[2016-07-05] MEDS: PANTOPRAZOLE (EC) 40 MG TAB PO SCH (06:00)
[2016-07-05] MEDS: INSULIN ASPART [NOVOLOG] 3 ML PEN SC SCH ×7 (07:35→21:00)
[2016-07-05] MEDS: ALBUTEROL/IPRATROPIUM (NEB) 3 ML AMP HHN SCH ×3 (08:20→20:00)
[2016-07-05] MEDS: AMLODIPINE 10 MG TAB PO SCH (09:00)
[2016-07-05] MEDS: BUMETANIDE 1 MG TAB PO SCH (09:00)
[2016-07-05] MEDS: APIXABAN 5 MG TABLET PO SCH ×2 (09:00→21:00)
[2016-07-05] MEDS: DOCUSATE SODIUM 100 MG CAP PO SCH ×2 (09:00→21:00)
[2016-07-05] MEDS: VALACYCLOVIR 500 MG TAB PO SCH ×2 (09:00→21:00)
[2016-07-05] MEDS: BETHANECHOL 25 MG TAB PO SCH ×3 (09:00→21:00)
[2016-07-05] MEDS: GABAPENTIN 300 MG CAP PO SCH ×3 (09:00→21:00)
[2016-07-05] MEDS: DILTIAZEM (CD) 240 MG CAP PO SCH (09:00)
[2016-07-05] MEDS: METHYLDOPA 250 MG TAB PO SCH ×2 (09:00→21:00)
[2016-07-05] MEDS: LINAGLIPTIN 5 MG TABLET PO SCH (09:00)
[2016-07-05] MEDS: FLUTICASONE 0.05% 16 GM NAS SPRAY NASAL SCH ×2 (09:27→21:00)
--- NOTE | 2016-07-05 09:53 | CONS ---
Date/Time of Note Date/Time of Note DATE: 07/05/16 TIME: 09:50 Assessment/Plan Assessment/Plan Additional Assessment/Plan Assessment and recommendations; next 1. Patient has had a long stay in the hospital initially admitted for acute urinary obstruction with interval improvement however discovered to have right ovarian mass on CT imaging of the abdomen. She has a few surgery owing to her multiple underlying comorbidities. Next 2. Severe COPD. With hypercapnic respiratory failure. 3. New onset of atrial fibrillation, currently heart rate is controlled. 4. Renal insufficiency. 5. Diabetes. 6. Morbid obesity. 7. Prior history of coronary artery disease status post bypass surgery. ABG was reviewed from yesterday the patient has very mild hypercapnia without any evidence of hypoxemia. At this time continue current treatment. Will obtain follow-up chest x-ray. Currently there is no evidence of any infective process. I would recommend stopping fortaz. Prognosis remains guarded. Consultation Date/Type/Reason Admit Date/Time Jun 09, 2016 at 12:22 Initial Consult Date 06/10/16 Type of Consultation: Pulmonary/critical care 24 HR Interval Summary Free Text/Dictation Patient had to be transferred to ICU because of development of atrial fibrillation with rapid ventricular response. Currently the patient remains in atrial fibrillation but the rate is below 100. Currently on BiPAP. Patient is somnolent. General exam; elderly lady, on BiPAP currently in no distress. Exam/Review of Systems Vital Signs Vitals Vital Signs Date Time Temp Pulse Resp B/P Pulse Ox O2 Delivery O2 Flow Rate FiO2 07/05/16 09:00 72 15 127/86 99 BIPAP 07/05/16 08:00 97.6 07/05/16 05:30 40 07/04/16 20:59 3.0 Intake and Output 07/04/16 07/04/16 07/05/16 15:00 23:00 07:00 Intake Total 720 ml 350 ml Output Total 695 ml Balance 720 ml -345 ml Exam H EENT exam is; JVD difficult to see because of short neck. Currently on BiPAP. No neck masses. Supple neck. No thyromegaly. Chest examination; diminished but clear breath sounds. S1-S2 audible irregular rhythm. No murmurs. There is a well-healed sternal scar. Abdomen examination of Mikael grossly protuberant. Bowel sounds audible. Extremity exam is; chronic appearing nonpitting edema involving lower extremities 3+. QUARTZ MINER exam; patient is somnolent currently. Results Result Diagram: 07/05/16 0445 07/05/16 0445 Results 24 hrs Laboratory Tests Test 07/04/16 11:37 07/04/16 17:50 07/04/16 18:40 07/04/16 20:34 Bedside Glucose 168 88 111 110 Test 07/04/16 22:24 07/04/16 22:31 07/04/16 22:43 07/05/16 00:25 Bedside Glucose 103 Arterial Blood HCO3 26.5 H Arterial Blood Base Excess 0.4 Arterial Blood Oxygen Saturation 98.0 Jasmeet Test ACCEPTAB Arterial Blood Gas Puncture Site Right Radial Arterial Blood Carboxyhemoglobin 0.1 Arterial Blood Date Drawn 07/04/2016 10:30:50 PM Arterial Blood Methemoglobin 0.2 Arterial Blood pCO2 (Temp correct) 48.9 H Arterial Blood pH (Temp corrected) 7.352 Arterial Blood pO2 (Temp corrected) 125.3 H Blood Gas A-a O2 Differential 538.8 H Blood Gas Modality MASK - NRB Blood Gas Notified Time 07/04/2016 10:40:41 PM Blood Gas Notified Whom MM Blood Gas Specimen Source Blood arterial Blood Gas Temperature 37.0 FiO2 100.0 Oxyhemoglobin Percent 97.7 Total Hemoglobin 12.4 Anion Gap 17 H 16 B-Type Natriuretic Peptide 4270 H Basophils # 0.0 0.0 Basophils % 0.1 0.1 Blood Urea Nitrogen 79 H 84 H Calcium Level 8.7 8.5 Carbon Dioxide Level 32 H 29 Chloride Level 99 104 Creatinine 2.58 H 2.64 H D-Dimer 2174.73 H D-Dimer Comment Eosinophils # 0.1 0.1 Eosinophils % 0.7 0.9 Glucose Level 91 # 88 Hematocrit 36.0 L 31.7 L Hemoglobin 11.5 L 10.3 L Lymphocytes # 0.8 0.7 L Lymphocytes % 6.9 L 5.8 L Mean Corpuscular Hemoglobin 32.5 32.8 Mean Corpuscular Hemoglobin Concent 31.9 L 32.5 Mean Corpuscular Volume 101.7 H 101.0 Mean Platelet Volume 11.5 H 12.0 H Monocytes # 0.3 1.4 H Monocytes % 2.8 11.7 H Neutrophils # 9.7 H 9.3 H Neutrophils % 88.3 H 80.5 H Nucleated Red Blood Cells # 0.0 0.0 Nucleated Red Blood Cells % 0.3 H 0.0 Platelet Count 228 196 Potassium Level 4.6 4.4 Red Blood Count 3.54 L 3.14 L Red Cell Distribution Width 15.8 H 15.8 H Sodium Level 143 145 H Troponin I 0.055 White Blood Count 11.0 H 11.5 H Lactic Acid Level 1.0 Test 07/05/16 01:12 07/05/16 04:45 07/05/16 07:54 Bedside Glucose 76 125 Anion Gap 16 Basophils # 0.0 Basophils % 0.1 Blood Urea Nitrogen 80 H Calcium Level 8.0 L Carbon Dioxide Level 29 Chloride Level 103 Creatinine 2.61 H Digoxin Level 0.5 L Eosinophils # 0.1 Eosinophils % 0.8 Glucose Level 82 Hematocrit 30.4 L Hemoglobin 9.4 L Lactic Acid Level 0.7 Lymphocytes # 1.1 Lymphocytes % 9.5 L Magnesium Level 2.2 Mean Corpuscular Hemoglobin 32.0 Mean Corpuscular Hemoglobin Concent 30.9 L Mean Corpuscular Volume 103.4 H Mean Platelet Volume 11.7 H Monocytes # 1.9 H Monocytes % 16.0 H Neutrophils # 8.4 H Neutrophils % 73.0 Nucleated Red Blood Cells # 0.0 Nucleated Red Blood Cells % 0.2 H Phosphorus Level 5.1 H Platelet Count 173 Potassium Level 4.3 Red Blood Count 2.94 L Red Cell Distribution Width 15.9 H Sodium Level 144 Troponin I 0.070 White Blood Count 11.6 H Medications Medications Current Medications Gabapentin (Neurontin) 600 mg TID PO Last administered on 07/04/16 20:30; Admin Dose 600 MG; Start 06/09/16 at 21:00 Pregabalin (Lyrica) 150 mg QHS PO Last administered on 07/03/16 21:41; Admin Dose 150 MG; Start 06/09/16 at 21:00 Valacyclovir HCl (Valtrex) 1,000 mg BID PO Last administered on 07/04/16 20:30 ; Admin Dose 1,000 MG; Start 06/09/16 at 21:00 Miscellaneous Information 1 ea NOTE XX ; Start 06/09/16 at 18:30 Glucose (Glutose) 15 gm Q15M PRN PO DECREASED GLUCOSE; Start 06/09/16 at 18:30 Glucose (Glutose) 22.5 gm Q15M PRN PO DECREASED GLUCOSE; Start 06/09/16 at 18: 30 Dextrose (D50w Syringe) 25 ml Q15M PRN IV DECREASED GLUCOSE; Start 06/09/16 at 18:30 Dextrose (D50w Syringe) 50 ml Q15M PRN IV DECREASED GLUCOSE; Start 06/09/16 at 18:30 Glucagon (Glucagen) 1 mg Q15M PRN IM DECREASED GLUCOSE; Start 06/09/16 at 18:30 Glucose (Glutose) 15 gm Q15M PRN BUCCAL DECREASED GLUCOSE; Start 06/09/16 at 18 :30 Amlodipine Besylate (Norvasc) 10 mg DAILY PO Last administered on 07/03/16 09: 08; Admin Dose 10 MG; Start 06/09/16 at 20:30 Hydromorphone HCl (Dilaudid) 0.5 mg Q4H PRN IV PAIN Last administered on 22:08; Admin Dose 0.5 MG; Start 06/10/16 at 02:30 Pantoprazole (Protonix Tab) 40 mg DAILY@06 PO Last administered on 07/04/16 06 :09; Admin Dose 40 MG; Start 06/11/16 at 06:00 Clonidine (Catapres) 0.2 mg Q6H PRN PO SBP above 160 Last administered on 10:22; Admin Dose 0.2 MG; Start 06/10/16 at 12:17 Hydralazine HCl (Apresoline) 10 mg Q4H PRN IV SBP >170 Last administered on 23:24; Admin Dose 10 MG; Start 06/10/16 at 15:00 Lorazepam (Ativan) 0.5 mg HS PO Last administered on 07/01/16 23:09; Admin Dose 0.5 MG; Start 06/11/16 at 22:00 Bethanechol Chloride (Urecholine) 25 mg TID PO Last administered on 07/04/16 20:27; Admin Dose 25 MG; Start 06/13/16 at 13:00 Linagliptin (Tradjenta) 5 mg DAILY PO Last administered on 07/04/16 09:10; Admin Dose 5 MG; Start 06/16/16 at 09:00 Capsaicin (Theragen) 1 applic QID TOP Last administered on 07/04/16 17:54; Admin Dose 1 APPLIC; Start 06/15/16 at 21:00 Lidocaine (Lidocaine 5% Oint) 1 applic TID PRN TOP ITCHING/PAIN; Start at 15:30 Docusate Sodium (Colace) 100 mg BID PO Last administered on 07/04/16 20:27; Admin Dose 100 MG; Start 06/16/16 at 15:00 Bisacodyl (Dulcolax) 10 mg DAILY PRN PO CONSTIPATION Last administered on 20:44; Admin Dose 10 MG; Start 06/16/16 at 14:00 Guaifenesin/ Dextromethorphan (Robitussin Dm Liquid Cup) 10 ml Q4H PRN PO COUGH ; Start 06/17/16 at 17:30 Fluticasone Propionate (Flonase 0.05% Nasal) 1 spray BID NASAL Last administered on 07/05/16 09:27; Admin Dose 1 SPRAY; Start 06/19/16 at 09:00 Atorvastatin Calcium (Lipitor) 40 mg HS PO Last administered on 07/04/16 20:30 ; Admin Dose 40 MG; Start 06/22/16 at 21:00 Morphine Sulfate (morphine) 2 mg Q4H PRN IV pain Last administered on 06/25/16 01:58; Admin Dose 2 MG; Start 06/22/16 at 10:30 Methyldopa (Aldomet) 500 mg BID PO Last administered on 07/04/16 20:30; Admin Dose 500 MG; Start 06/26/16 at 09:00 Diltiazem HCl (Cardizem Cd) 240 mg DAILY PO Last administered on 07/03/16 09: 05; Admin Dose 240 MG; Start 07/01/16 at 12:00 Apixaban (Eliquis) 2.5 mg BID PO Last administered on 07/04/16 20:32; Admin Dose 2.5 MG; Start 07/01/16 at 09:30 Insulin Glargine (Lantus) 46 unit BID@08,20 SC Last administered on 07/04/16 20:50; Admin Dose 46 UNIT; Start 07/01/16 at 20:00; Status Future Hold Lorazepam (Ativan) 0.5 mg Q8H PRN PO ANXIETY Last administered on 07/03/16 03: 42; Admin Dose 0.5 MG; Start 07/03/16 at 04:00 Bumetanide (Bumex) 1 mg DAILY PO Last administered on 07/04/16 09:09; Admin Dose 1 MG; Start 07/03/16 at 09:00 Acetaminophen 650 mg 650 mg Q6H PRN [place] Fever; Start 07/05/16 at 00:00 Dextrose 1,000 ml @ 50 mls/hr Q20H IV Last administered on 07/05/16 01:21; Admin Dose 50 MLS/HR; Start 07/05/16 at 01:30 Acetaminophen 100 ml @ 400 mls/hr Q6 PRN IVPB FEVER Last administered on 01:26; Admin Dose 400 MLS/HR; Start 07/05/16 at 01:30 Piperacillin Sod/ Tazobactam Sod (Zosyn 3.375gm/ 100 ml (Pmx)) 100 ml @ 200 mls /hr Q8 IVPB ; Start 07/05/16 at 14:00 JAYME POP Jul 05, 2016 09:53
--- NOTE | 2016-07-05 10:43 | CONS ---
Date/Time of Note Date/Time of Note DATE: 07/05/16 TIME: 10:38 Assessment/Plan Assessment/Plan Chief Complaint/Hosp Course Altered mental status/delirium: In setting of high fevers and >1 week of indwelling martinez, concern for UTI/sepsis, Cultures are pending Paroxysmal atrial fibrillation: appears to be a new diagnosis. CHADSVASC is 3, appropriate for anticoagulation. Pt agreeable. Rates controlled except for last night when she had high fevers Acute on chronic diastolic heart failure: EF preserved.~euvolemic to now mildly overloaded after episode of afib with RVR Accelerated HTN: BPs controlled Ovarian mass: Evaluated by heme/onc.Refusing surgery at this time Urinary retention: requiring martinez Acute on chronic renal failure: improved after obstruction resolved. Cr has been fluctuating h/o CAD s/p CABG DM PVD s/p renal stent -agree with antibiotics -f/u cultures -will not intensify diuretics in setting of likely sepsis so continue bumex 1 mg PO daily -diltiazem 240mg daily -Eliquis 2.5mg BID -ASA, statin -amlodipine 10mg -continue methyldopa Problems: Consultation Date/Type/Reason Admit Date/Time Jun 09, 2016 at 12:22 Initial Consult Date 06/10/16 Type of Consultation: Cardiology 24 HR Interval Summary Free Text/Dictation Pt was to be discharged yesterday. However last night a rapid response was called as the pt was "shaking" and unresponsive. She had a fever to 103 and afib with RVR up to 150s. She was placed on BiPAP, started on antibiotics, and transferred to the ICU. This am she is somnolent but arousable. She remains on BiPAP. Exam/Review of Systems Vital Signs Vitals Vital Signs Date Time Temp Pulse Resp B/P Pulse Ox O2 Delivery O2 Flow Rate FiO2 07/05/16 09:00 72 15 127/86 99 BIPAP 07/05/16 08:00 97.6 07/05/16 05:30 40 07/04/16 20:59 3.0 Intake and Output 07/04/16 07/04/16 07/05/16 15:00 23:00 07:00 Intake Total 720 ml 350 ml Output Total 695 ml Balance 720 ml -345 ml Exam Constitutional: No alert (arousable ) Head: atraumatic, normocephalic Neck: No jvd (difficult to assess with BiPAP in place) Respiratory: crackles/rales, No clear to auscultation Cardiovascular: edema (2+), No regular rate and rhythm (IRIR), No systolic murmur Gastrointestinal: non-tender, soft, No distended Neurological: No nl mental status Results Result Diagram: 07/05/16 0445 07/05/16 0445 Results 24 hrs Laboratory Tests Test 07/04/16 11:37 07/04/16 17:50 07/04/16 18:40 07/04/16 20:34 Bedside Glucose 168 88 111 110 Test 07/04/16 22:24 07/04/16 22:31 07/04/16 22:43 07/05/16 00:25 Bedside Glucose 103 Arterial Blood HCO3 26.5 H Arterial Blood Base Excess 0.4 Arterial Blood Oxygen Saturation 98.0 Jasmeet Test ACCEPTAB Arterial Blood Gas Puncture Site Right Radial Arterial Blood Carboxyhemoglobin 0.1 Arterial Blood Date Drawn 07/04/2016 10:30:50 PM Arterial Blood Methemoglobin 0.2 Arterial Blood pCO2 (Temp correct) 48.9 H Arterial Blood pH (Temp corrected) 7.352 Arterial Blood pO2 (Temp corrected) 125.3 H Blood Gas A-a O2 Differential 538.8 H Blood Gas Modality MASK - NRB Blood Gas Notified Time 07/04/2016 10:40:41 PM Blood Gas Notified Whom MM Blood Gas Specimen Source Blood arterial Blood Gas Temperature 37.0 FiO2 100.0 Oxyhemoglobin Percent 97.7 Total Hemoglobin 12.4 Anion Gap 17 H 16 B-Type Natriuretic Peptide 4270 H Basophils # 0.0 0.0 Basophils % 0.1 0.1 Blood Urea Nitrogen 79 H 84 H Calcium Level 8.7 8.5 Carbon Dioxide Level 32 H 29 Chloride Level 99 104 Creatinine 2.58 H 2.64 H D-Dimer 2174.73 H D-Dimer Comment Eosinophils # 0.1 0.1 Eosinophils % 0.7 0.9 Glucose Level 91 # 88 Hematocrit 36.0 L 31.7 L Hemoglobin 11.5 L 10.3 L Lymphocytes # 0.8 0.7 L Lymphocytes % 6.9 L 5.8 L Mean Corpuscular Hemoglobin 32.5 32.8 Mean Corpuscular Hemoglobin Concent 31.9 L 32.5 Mean Corpuscular Volume 101.7 H 101.0 Mean Platelet Volume 11.5 H 12.0 H Monocytes # 0.3 1.4 H Monocytes % 2.8 11.7 H Neutrophils # 9.7 H 9.3 H Neutrophils % 88.3 H 80.5 H Nucleated Red Blood Cells # 0.0 0.0 Nucleated Red Blood Cells % 0.3 H 0.0 Platelet Count 228 196 Potassium Level 4.6 4.4 Red Blood Count 3.54 L 3.14 L Red Cell Distribution Width 15.8 H 15.8 H Sodium Level 143 145 H Troponin I 0.055 White Blood Count 11.0 H 11.5 H Lactic Acid Level 1.0 Test 07/05/16 01:12 07/05/16 04:45 07/05/16 07:54 Bedside Glucose 76 125 Anion Gap 16 Basophils # 0.0 Basophils % 0.1 Blood Urea Nitrogen 80 H Calcium Level 8.0 L Carbon Dioxide Level 29 Chloride Level 103 Creatinine 2.61 H Digoxin Level 0.5 L Eosinophils # 0.1 Eosinophils % 0.8 Glucose Level 82 Hematocrit 30.4 L Hemoglobin 9.4 L Lactic Acid Level 0.7 Lymphocytes # 1.1 Lymphocytes % 9.5 L Magnesium Level 2.2 Mean Corpuscular Hemoglobin 32.0 Mean Corpuscular Hemoglobin Concent 30.9 L Mean Corpuscular Volume 103.4 H Mean Platelet Volume 11.7 H Monocytes # 1.9 H Monocytes % 16.0 H Neutrophils # 8.4 H Neutrophils % 73.0 Nucleated Red Blood Cells # 0.0 Nucleated Red Blood Cells % 0.2 H Phosphorus Level 5.1 H Platelet Count 173 Potassium Level 4.3 Red Blood Count 2.94 L Red Cell Distribution Width 15.9 H Sodium Level 144 Troponin I 0.070 White Blood Count 11.6 H Medications Medications Current Medications Gabapentin (Neurontin) 600 mg TID PO Last administered on 07/04/16 20:30; Admin Dose 600 MG; Start 06/09/16 at 21:00 Pregabalin (Lyrica) 150 mg QHS PO Last administered on 07/03/16 21:41; Admin Dose 150 MG; Start 06/09/16 at 21:00 Valacyclovir HCl (Valtrex) 1,000 mg BID PO Last administered on 07/04/16 20:30 ; Admin Dose 1,000 MG; Start 06/09/16 at 21:00 Miscellaneous Information 1 ea NOTE XX ; Start 06/09/16 at 18:30 Glucose (Glutose) 15 gm Q15M PRN PO DECREASED GLUCOSE; Start 06/09/16 at 18:30 Glucose (Glutose) 22.5 gm Q15M PRN PO DECREASED GLUCOSE; Start 06/09/16 at 18: 30 Dextrose (D50w Syringe) 25 ml Q15M PRN IV DECREASED GLUCOSE; Start 06/09/16 at 18:30 Dextrose (D50w Syringe) 50 ml Q15M PRN IV DECREASED GLUCOSE; Start 06/09/16 at 18:30 Glucagon (Glucagen) 1 mg Q15M PRN IM DECREASED GLUCOSE; Start 06/09/16 at 18:30 Glucose (Glutose) 15 gm Q15M PRN BUCCAL DECREASED GLUCOSE; Start 06/09/16 at 18 :30 Amlodipine Besylate (Norvasc) 10 mg DAILY PO Last administered on 07/03/16 09: 08; Admin Dose 10 MG; Start 06/09/16 at 20:30 Hydromorphone HCl (Dilaudid) 0.5 mg Q4H PRN IV PAIN Last administered on 22:08; Admin Dose 0.5 MG; Start 06/10/16 at 02:30 Pantoprazole (Protonix Tab) 40 mg DAILY@06 PO Last administered on 07/04/16 06 :09; Admin Dose 40 MG; Start 06/11/16 at 06:00 Clonidine (Catapres) 0.2 mg Q6H PRN PO SBP above 160 Last administered on 10:22; Admin Dose 0.2 MG; Start 06/10/16 at 12:17 Hydralazine HCl (Apresoline) 10 mg Q4H PRN IV SBP >170 Last administered on 23:24; Admin Dose 10 MG; Start 06/10/16 at 15:00 Lorazepam (Ativan) 0.5 mg HS PO Last administered on 07/01/16 23:09; Admin Dose 0.5 MG; Start 06/11/16 at 22:00 Bethanechol Chloride (Urecholine) 25 mg TID PO Last administered on 07/04/16 20:27; Admin Dose 25 MG; Start 06/13/16 at 13:00 Linagliptin (Tradjenta) 5 mg DAILY PO Last administered on 07/04/16 09:10; Admin Dose 5 MG; Start 06/16/16 at 09:00 Capsaicin (Theragen) 1 applic QID TOP Last administered on 07/04/16 17:54; Admin Dose 1 APPLIC; Start 06/15/16 at 21:00 Lidocaine (Lidocaine 5% Oint) 1 applic TID PRN TOP ITCHING/PAIN; Start at 15:30 Docusate Sodium (Colace) 100 mg BID PO Last administered on 07/04/16 20:27; Admin Dose 100 MG; Start 06/16/16 at 15:00 Bisacodyl (Dulcolax) 10 mg DAILY PRN PO CONSTIPATION Last administered on 20:44; Admin Dose 10 MG; Start 06/16/16 at 14:00 Guaifenesin/ Dextromethorphan (Robitussin Dm Liquid Cup) 10 ml Q4H PRN PO COUGH ; Start 06/17/16 at 17:30 Fluticasone Propionate (Flonase 0.05% Nasal) 1 spray BID NASAL Last administered on 07/05/16 09:27; Admin Dose 1 SPRAY; Start 06/19/16 at 09:00 Atorvastatin Calcium (Lipitor) 40 mg HS PO Last administered on 07/04/16 20:30 ; Admin Dose 40 MG; Start 06/22/16 at 21:00 Morphine Sulfate (morphine) 2 mg Q4H PRN IV pain Last administered on 06/25/16 01:58; Admin Dose 2 MG; Start 06/22/16 at 10:30 Methyldopa (Aldomet) 500 mg BID PO Last administered on 07/04/16 20:30; Admin Dose 500 MG; Start 06/26/16 at 09:00 Diltiazem HCl (Cardizem Cd) 240 mg DAILY PO Last administered on 07/03/16 09: 05; Admin Dose 240 MG; Start 07/01/16 at 12:00 Apixaban (Eliquis) 2.5 mg BID PO Last administered on 07/04/16 20:32; Admin Dose 2.5 MG; Start 07/01/16 at 09:30 Insulin Glargine (Lantus) 46 unit BID@08,20 SC Last administered on 07/04/16 20:50; Admin Dose 46 UNIT; Start 07/01/16 at 20:00; Status Future Hold Lorazepam (Ativan) 0.5 mg Q8H PRN PO ANXIETY Last administered on 07/03/16 03: 42; Admin Dose 0.5 MG; Start 07/03/16 at 04:00 Bumetanide (Bumex) 1 mg DAILY PO Last administered on 07/04/16 09:09; Admin Dose 1 MG; Start 07/03/16 at 09:00 Acetaminophen 650 mg 650 mg Q6H PRN [place] Fever; Start 07/05/16 at 00:00 Dextrose 1,000 ml @ 50 mls/hr Q20H IV Last administered on 07/05/16 01:21; Admin Dose 50 MLS/HR; Start 07/05/16 at 01:30 Acetaminophen 100 ml @ 400 mls/hr Q6 PRN IVPB FEVER Last administered on 01:26; Admin Dose 400 MLS/HR; Start 07/05/16 at 01:30 Piperacillin Sod/ Tazobactam Sod (Zosyn 3.375gm/ 100 ml (Pmx)) 100 ml @ 200 mls /hr Q8 IVPB ; Start 07/05/16 at 14:00 AMISHA NIETO Jul 05, 2016 10:43
--- NOTE | 2016-07-05 11:02 | PN ---
DATE: 07/05/2016 SUBJECTIVE: The patient overnight was noted to go into sudden atrial fibrillation with rapid rate, and the patient was placed on BiPAP, given IV diltiazem, digoxin, and transferred over to intensive care unit. While in the intensive care unit, the patient's rate improved. She converted back to si nus and was rate controlled in the 80s. This morning, the patient is lethargic but arousable on BiP AP. There were no reports of hemoptysis, hematemesis, or hematochezia. The patient was febrile ove rnight with temperatures as high as 103. She received Tylenol with defervescence and improvement. The patient's blood cultures drawn, and she was started on IV antibiotics. Please note, I discussed the case in detail with the patient's daughter, informing her and updating her on condition. Please note the patient also refused intubation overnight. OBJECTIVE: VITAL SIGNS: Blood pressure is currently 103/65, respirations 14, pulse 88, temperature 103.1. I's AND O'S: The patient had 1 liter in, 625 mL out. HEENT: Head is normocephalic. NECK: Supple. HEART: Irregularly irregular. LUNGS: Show diminished breath sounds at the base. ABDOMEN: Soft, obese, nontender to palpation. EXTREMITIES: Negative for clubbing, cyanosis. Trace edema. Positive venous insufficiency changes. DERMATOLOGIC: No new rashes. NEUROLOGIC: Limited exam but no obvious focal deficits. MUSCULOSKELETAL: No joint effusions. LABORATORY DATA: Shows sodium 144, potassium 4.3, chloride 103, BUN is 80, creatinine 2.61, calcium 8.0, phosphorus 5.1. White count 11.6, hemoglobin 9.4, hematocrit 30.4, platelet count is 173. Th e patient's lactic acid within normal limits. D-dimer is 2000. ASSESSMENT AND PLAN: 1. Acute hypoxemic hypercarbic respiratory failure. Etiology is multifactorial secondary to chroni c obstructive pulmonary disease and sleep apnea. The patient is currently on BiPAP with acute decom pensation overnight. The patient refused intubation. Plan at this point is to check chest x-ray to rule out aspiration. We will follow up an ABG. We will follow up with pulmonary. BiPAP settings have been reviewed. 2. Atrial fibrillation with rapid ventricular rate. Etiology is unclear, possibly related to under lying hypoxemia. We will rule out other causes by checking serial troponins. The patient's rate is improved and controlled after receiving IV digoxin. We will continue current medical management wi th oral diltiazem. Continue Eliquis. We will follow up with cardiology and monitor. 3. Nonoliguric acute kidney injury on top of chronic kidney disease, stage IV. Etiology of acute k idney injury is secondary to hemodynamics. The patient's renal function has been fluctuating but ov erall stable creatinine of 2.5 to 2.7 mg/dL. Continue current treatment plan, supportive care, sisi lly dose all meds. 4. Systemic inflammatory response syndrome. The patient was afebrile overnight, questionable infec tion. We will rule out etiologies by checking a chest x-ray. We will check blood cultures, urine c ulture. Lactic acid level is within normal limits. Continue current antibiotic therapy. We will c onsider ID evaluation. 5. Acute decompensated diastolic heart failure. Continue current medical management with Bumex. M onitor I's and O's. Follow up with cardiology. 6. Hypertension. Blood pressure is currently controlled. Continue current blood pressure regimen. 7. Anemia. Hemoglobin level stable, continue to monitor. 8. Diabetes. The patient is currently n.p.o. We will place the patient on D5, continue sliding sc mita, and monitor. 9. History of coronary artery disease. Continue current medical management. 10. Chronic kidney disease, stage IV, secondary to diabetes, hypertension. Continue current treatm ent plan. The patient's acute kidney injury as stated above. 11. Morbid obesity. Continue dietary modification. 12. Dyslipidemia. Continue statin therapy. 13. Neuropathy. Continue Lyrica. 14. Sleep apnea. Continue BiPAP, CPAP, and follow up with pulmonary. 15. Gastrointestinal and deep venous thrombosis prophylaxis. Continue proton pump inhibitor and El iquis. Please note I spent over 40 minutes of critical care time with this patient, discussed the case with the hospital staff and the patient's daughter, answering all questions. Dictated By: CRISTA GAINES/BIRGIT Conf#: [id number] DID#: [id number]
[2016-07-05] MEDS: CAPSAICIN 0.025% 60 GM CR TOP SCH ×4 (11:12→21:00)
--- NOTE | 2016-07-05 11:38 | RADRPT ---
PROCEDURE: XR Chest. CLINICAL INDICATION: Shortness of breath. TECHNIQUE: Single frontal view. COMPARISON: 06/28/2016. FINDINGS: There is mild atelectasis at the lung bases, unchanged. Pulmonary edema is unchanged. The lungs ar e otherwise clear. The heart is enlarged. There is calcification in the aorta consistent with atherosclerosis. Sterna l wires and mediastinal clips are noted. There are small bilateral pleural effusions. There is no pneumothorax. IMPRESSION: 1. No change from 06/28/2016. RPTAT: QQ .Ethan Villanueva MD, MD Date Time Electronically viewed and signed by .Ethan Villanueva MD, MD on 07/05/2016 11:38 .R/
[2016-07-05] MEDS: PIPER-TAZO 3.375 GM IV (PMX) 100 ML IVPB SCH ×2 (13:42→22:00)
--- NOTE | 2016-07-05 14:36 | CONS ---
DATE OF ADMISSION: 06/09/2016 DATE OF CONSULTATION: 07/05/2016 TYPE OF CONSULTATION: Infectious Disease. REASON FOR CONSULTATION: Antibiotic management. HISTORY OF PRESENT ILLNESS: The patient is a 60-year-old female who was admitted initially with uri nary retention. PAST PROBLEMS INCLUDE: 1. Coronary artery disease. 2. Diabetes. 3. Neuropathy. 4. Renal artery stones. 5. Hypertension. 6. Morbid obesity. 7. Dyslipidemia. 8. Status post coronary artery bypass graft. 9. Status post renal arterial stent placement. Acutely on admission, her white count was 7.1, H and H of 11.3 and 33.9, platelet count 187,000. BU N and creatinine 31/2.04. The patient has had a very long course. She was found to have a right o varian cystic mass. She was seen in consultation in consultation by Dr. Jessica Suarez. She was se en by numerous consultants including Dr. Mendez in cardiology, and Dr. Lewis in pulmonary consultat ion. Acutely, the patient was noted to be lethargic yesterday, but arousable to deep stimuli. She had a white count of 11.1. She had acute hypoxemic hypercarbic respiratory failure secondary to chr onic obstructive pulmonary disease, sleep apnea and diastolic heart failure. She has a nasal cannul a with CPAP at night. She has acute on chronic kidney disease and numerous other problems. She jose luis t into apparent respiratory distress overnight and was transferred to the intensive care unit. She was seen by Dr. Lewis this morning. He notes that she initially was admitted for acute urinary trac t obstruction. She was found to have a right ovarian mass on CT imaging. She had a number of surge belinda ____ to her multiple underlying comorbidities. She has severe COPD, new onset of atrial fibril lation, renal insufficiency, diabetes, morbid obesity, prior history of coronary artery disease with bypass. She was initially on Fortaz. She was transferred to the ICU in atrial fibrillation on BiP AP. PAST MEDICAL HISTORY: Operations as outlined. FAMILY HISTORY: Noncontributory. SOCIAL HISTORY: She does not smoke, drink or abuse drugs. ALLERGIES: NONE TO PENICILLIN, SULFA OR FOODS. MEDICATIONS: Per chart. REVIEW OF SYSTEMS: As per HPI. PHYSICAL EXAMINATION: GENERAL: The patient is an elderly appearing female who is morbidly obese, on BiPAP. SKIN: Without generalized rash. HEENT: Within normal limits. NECK: Supple. LYMPH NODES: None palpable. CHEST: Decreased breath sounds at the bases. HEART: Irregularly irregular rhythm. THORAX: Well-healed sternal scar. ABDOMEN: Soft, nontender, without organosplenomegaly or masses. EXTREMITIES: Without cyanosis or clubbing. She has 3+ nonpitting edema. RECTAL AND GENITAL: Exam is deferred. NEUROLOGIC: The patient is somnolent, moves all extremities. ANCILLARY LABORATORY DATA: White count 11.6, H and H 9.4 and 30.4, platelet count 173,000. BUN and creatinine 80/2.61. MICROBIOLOGY: Urine is negative. MRSA is negative. Recent chest x-ray from the shows improved pulmonary edema and bibasilar atelectasis, cardiomegaly and atherosclerosis, previous sternotomy, s mall bilateral pleural effusions. IMPRESSION AND PLAN: The patient is currently on Zosyn. There is no obvious source of infection at this point. She is also on valacyclovir. We will continue her on this regimen. Blood cultures we re done last night, so was a urine culture and a chest x-ray was ordered this morning. I will dicta te my findings to the hospitalist, Dr. Munson, and to Daniela. Dictated By: DRE DURAN MD, JD/BIRGIT Conf#: [id number] DID#: [id number]
--- NOTE | 2016-07-05 16:09 | RADRPT ---
Vent Rate: 161 bpm RR Interval: 0 msec WA Interval: 0 msec QRS Duration: 74 msec QT Interval: 232 msec QTC Interval: 379 msec P-R-T Hart[place]: 0 - 50 - 55 degrees Atrial fibrillation with rapid ventricular response Nonspecific ST abnormality , probably digitalis effect Abnormal ECG Electronically Signed By: Stevenson Mendez [id number]
--- NOTE | 2016-07-05 20:15 | CONS ---
Date/Time of Note Date/Time of Note DATE: 07/05/16 TIME: 20:08 Assessment/Plan Assessment/Plan Chief Complaint/Hosp Course A right ovarian cystic mass. Etiology is unclear, concerning for possible malignancy. PT IS DECLINING SURGERY AT PRESENT Anemia. Continue to monitor hemoglobin and hematocrit levels. + component ACD OBSERVE FOR BLEEDING AND HEMOLYSIS SERVIN / NUMBNESS LUE- RESOLVED CT HEAD- NEG LEUKOCYTOSIS REACTIVE ATB PER ID MONITOR CLOSELY FEVER ID ATB Acute hypoxemic hypercarbic respiratory failure. Etiology is multifactorial secondary to chronic obstructive pulmonary disease and sleep apnea. The patient is currently on BiPAP with acute decompensation overnight. The patient refused intubation. Plan at this point is to check chest x-ray to rule out aspiration. We will follow up an ABG. We will follow up with pulmonary. BiPAP settings have been reviewed. Atrial fibrillation with rapid ventricular rate. Etiology is unclear, possibly related to underlying hypoxemia. We will rule out other causes by checking serial troponins. The patient's rate is improved and controlled after receiving IV digoxin. We will continue current medical management with oral diltiazem. Continue Eliquis. We will follow up with cardiology and monitor. Nonoliguric acute kidney injury on top of chronic kidney disease with a previous baseline renal function around 1.5 to 2 mg/dL. Clinical albuminuria - PER NEPHROLOGY Urinary retention. Underlying etiology is unclear. The patient is status post Flynn catheter placement with good urinary output. Seen by urology still unable to urinate on intermittent catheterizations URECHOLINE - DOSE INCREASED Acute decompensated diastolic heart failure. The patient noted to have pulmonary congestion, lower extremity edema. The patient is status post Lasix; will continue- PER NEPHRO cardiology F-UP PT IS IV BUMEX AROUND THE CLOCK History of coronary artery disease, status post coronary artery bypass graft. Continue current medical management. Diabetes. Will continue Accu-Cheks, insulin sliding scale, continue Lantus. HB A1C- 8.1. CONT lantus AND SC Chronic kidney disease stage IIIB/IV. Etiology is multifactorial secondary to diabetes, hypertension. The patient is currently in acute kidney injury as stated above. Continue medical management. Morbid obesity. Continue dietary modification. Dyslipidemia. Continue statin therapy. Obstructive sleep apnea. Continue supplemental oxygen. pulmonary F-UP Hypertension- BETTER CONTROLLED Continue current blood pressure regimen. Will adjust medications as needed. CARDIOLOGY F-UP History of peripheral vascular disease. Continue current medical management. LEGAL BLINDNESS SEVERE DJD/OA WITH CHRONIC PAIN GI PROBLEMS- WITH ABD PAIN, DIARRHEA/ ALTERNATING WITH CONSTIPATION GI F-UP Problems: Consultation Date/Type/Reason Admit Date/Time Jun 09, 2016 at 12:22 Initial Consult Date 06/09/16 Type of Consultation: [facility] 24 HR Interval Summary Free Text/Dictation ALL NOTED D/W DR HERNANDEZ The patient overnight was noted to go into sudden atrial fibrillation with rapid rate, and the patient was placed on BiPAP, given IV diltiazem, digoxin, and transferred over to intensive care unit. While in the intensive care unit, the patient's rate improved. She converted back to sinus and was rate controlled in the 80s. This morning, the patient is lethargic but arousable on BiPAP. There were no reports of hemoptysis, hematemesis, or hematochezia. The patient was febrile overnight with temperatures as high as 103. She received Tylenol with defervescence and improvement. The patient's blood cultures drawn , and she was started on IV antibiotics. PT IS SEEN BY ID Exam/Review of Systems Vital Signs Vitals Vital Signs Date Time Temp Pulse Resp B/P Pulse Ox O2 Delivery O2 Flow Rate FiO2 07/05/16 19:00 91 15 119/45 100 Nasal Cannula 4.0 07/05/16 16:00 97.5 07/05/16 13:10 40 Intake and Output 07/04/16 07/04/16 07/05/16 15:00 23:00 07:00 Intake Total 720 ml 350 ml Output Total 695 ml Balance 720 ml -345 ml Exam HEENT: Head is normocephalic. NECK: Supple. HEART: Irregularly irregular. LUNGS: Show diminished breath sounds at the base. ABDOMEN: Soft, obese, nontender to palpation. EXTREMITIES: Negative for clubbing, cyanosis. Trace edema. Positive venous insufficiency changes. DERMATOLOGIC: No new rashes. NEUROLOGIC: Limited exam but no obvious focal deficits. MUSCULOSKELETAL: No joint effusions. Results Result Diagram: 07/05/16 0445 07/05/16 0445 Results 24 hrs Laboratory Tests Test 07/04/16 20:34 07/04/16 22:24 07/04/16 22:31 07/04/16 22:43 Bedside Glucose 110 103 Arterial Blood HCO3 26.5 H Arterial Blood Base Excess 0.4 Arterial Blood Oxygen Saturation 98.0 Jasmeet Test ACCEPTAB Arterial Blood Gas Puncture Site Right Radial Arterial Blood Carboxyhemoglobin 0.1 Arterial Blood Date Drawn 07/04/2016 10:30:50 PM Arterial Blood Methemoglobin 0.2 Arterial Blood pCO2 (Temp correct) 48.9 H Arterial Blood pH (Temp corrected) 7.352 Arterial Blood pO2 (Temp corrected) 125.3 H Blood Gas A-a O2 Differential 538.8 H Blood Gas Modality MASK - NRB Blood Gas Notified Time 07/04/2016 10:40:41 PM Blood Gas Notified Whom MM Blood Gas Specimen Source Blood arterial Blood Gas Temperature 37.0 FiO2 100.0 Oxyhemoglobin Percent 97.7 Total Hemoglobin 12.4 Anion Gap 17 H B-Type Natriuretic Peptide 4270 H Basophils # 0.0 Basophils % 0.1 Blood Urea Nitrogen 79 H Calcium Level 8.7 Carbon Dioxide Level 32 H Chloride Level 99 Creatinine 2.58 H D-Dimer 2174.73 H D-Dimer Comment Eosinophils # 0.1 Eosinophils % 0.7 Glucose Level 91 # Hematocrit 36.0 L Hemoglobin 11.5 L Lymphocytes # 0.8 Lymphocytes % 6.9 L Mean Corpuscular Hemoglobin 32.5 Mean Corpuscular Hemoglobin Concent 31.9 L Mean Corpuscular Volume 101.7 H Mean Platelet Volume 11.5 H Monocytes # 0.3 Monocytes % 2.8 Neutrophils # 9.7 H Neutrophils % 88.3 H Nucleated Red Blood Cells # 0.0 Nucleated Red Blood Cells % 0.3 H Platelet Count 228 Potassium Level 4.6 Red Blood Count 3.54 L Red Cell Distribution Width 15.8 H Sodium Level 143 Troponin I 0.055 White Blood Count 11.0 H Test 07/05/16 00:25 07/05/16 01:12 07/05/16 04:45 07/05/16 07:54 Anion Gap 16 16 Basophils # 0.0 0.0 Basophils % 0.1 0.1 Blood Urea Nitrogen 84 H 80 H Calcium Level 8.5 8.0 L Carbon Dioxide Level 29 29 Chloride Level 104 103 Creatinine 2.64 H 2.61 H Eosinophils # 0.1 0.1 Eosinophils % 0.9 0.8 Glucose Level 88 82 Hematocrit 31.7 L 30.4 L Hemoglobin 10.3 L 9.4 L Lactic Acid Level 1.0 0.7 Lymphocytes # 0.7 L 1.1 Lymphocytes % 5.8 L 9.5 L Mean Corpuscular Hemoglobin 32.8 32.0 Mean Corpuscular Hemoglobin Concent 32.5 30.9 L Mean Corpuscular Volume 101.0 103.4 H Mean Platelet Volume 12.0 H 11.7 H Monocytes # 1.4 H 1.9 H Monocytes % 11.7 H 16.0 H Neutrophils # 9.3 H 8.4 H Neutrophils % 80.5 H 73.0 Nucleated Red Blood Cells # 0.0 0.0 Nucleated Red Blood Cells % 0.0 0.2 H Platelet Count 196 173 Potassium Level 4.4 4.3 Red Blood Count 3.14 L 2.94 L Red Cell Distribution Width 15.8 H 15.9 H Sodium Level 145 H 144 White Blood Count 11.5 H 11.6 H Bedside Glucose 76 125 Digoxin Level 0.5 L Magnesium Level 2.2 Phosphorus Level 5.1 H Troponin I 0.070 Test 07/05/16 11:12 07/05/16 17:57 Bedside Glucose 120 149 Medications Medications Current Medications Gabapentin (Neurontin) 600 mg TID PO Last administered on 07/04/16 20:30; Admin Dose 600 MG; Start 06/09/16 at 21:00 Pregabalin (Lyrica) 150 mg QHS PO Last administered on 07/03/16 21:41; Admin Dose 150 MG; Start 06/09/16 at 21:00 Valacyclovir HCl (Valtrex) 1,000 mg BID PO Last administered on 07/04/16 20:30 ; Admin Dose 1,000 MG; Start 06/09/16 at 21:00 Miscellaneous Information 1 ea NOTE XX ; Start 06/09/16 at 18:30 Glucose (Glutose) 15 gm Q15M PRN PO DECREASED GLUCOSE; Start 06/09/16 at 18:30 Glucose (Glutose) 22.5 gm Q15M PRN PO DECREASED GLUCOSE; Start 06/09/16 at 18: 30 Dextrose (D50w Syringe) 25 ml Q15M PRN IV DECREASED GLUCOSE; Start 06/09/16 at 18:30 Dextrose (D50w Syringe) 50 ml Q15M PRN IV DECREASED GLUCOSE; Start 06/09/16 at 18:30 Glucagon (Glucagen) 1 mg Q15M PRN IM DECREASED GLUCOSE; Start 06/09/16 at 18:30 Glucose (Glutose) 15 gm Q15M PRN BUCCAL DECREASED GLUCOSE; Start 06/09/16 at 18 :30 Amlodipine Besylate (Norvasc) 10 mg DAILY PO Last administered on 07/03/16 09: 08; Admin Dose 10 MG; Start 06/09/16 at 20:30 Hydromorphone HCl (Dilaudid) 0.5 mg Q4H PRN IV PAIN Last administered on 22:08; Admin Dose 0.5 MG; Start 06/10/16 at 02:30 Pantoprazole (Protonix Tab) 40 mg DAILY@06 PO Last administered on 07/04/16 06 :09; Admin Dose 40 MG; Start 06/11/16 at 06:00 Clonidine (Catapres) 0.2 mg Q6H PRN PO SBP above 160 Last administered on 10:22; Admin Dose 0.2 MG; Start 06/10/16 at 12:17 Hydralazine HCl (Apresoline) 10 mg Q4H PRN IV SBP >170 Last administered on 23:24; Admin Dose 10 MG; Start 06/10/16 at 15:00 Lorazepam (Ativan) 0.5 mg HS PO Last administered on 07/01/16 23:09; Admin Dose 0.5 MG; Start 06/11/16 at 22:00 Bethanechol Chloride (Urecholine) 25 mg TID PO Last administered on 07/04/16 20:27; Admin Dose 25 MG; Start 06/13/16 at 13:00 Linagliptin (Tradjenta) 5 mg DAILY PO Last administered on 07/04/16 09:10; Admin Dose 5 MG; Start 06/16/16 at 09:00 Capsaicin (Theragen) 1 applic QID TOP Last administered on 07/05/16 18:03; Admin Dose 1 APPLIC; Start 06/15/16 at 21:00 Lidocaine (Lidocaine 5% Oint) 1 applic TID PRN TOP ITCHING/PAIN; Start at 15:30 Docusate Sodium (Colace) 100 mg BID PO Last administered on 07/04/16 20:27; Admin Dose 100 MG; Start 06/16/16 at 15:00 Bisacodyl (Dulcolax) 10 mg DAILY PRN PO CONSTIPATION Last administered on 20:44; Admin Dose 10 MG; Start 06/16/16 at 14:00 Guaifenesin/ Dextromethorphan (Robitussin Dm Liquid Cup) 10 ml Q4H PRN PO COUGH ; Start 06/17/16 at 17:30 Fluticasone Propionate (Flonase 0.05% Nasal) 1 spray BID NASAL Last administered on 07/05/16 09:27; Admin Dose 1 SPRAY; Start 06/19/16 at 09:00 Atorvastatin Calcium (Lipitor) 40 mg HS PO Last administered on 07/04/16 20:30 ; Admin Dose 40 MG; Start 06/22/16 at 21:00 Morphine Sulfate (morphine) 2 mg Q4H PRN IV pain Last administered on 06/25/16 01:58; Admin Dose 2 MG; Start 06/22/16 at 10:30 Methyldopa (Aldomet) 500 mg BID PO Last administered on 07/04/16 20:30; Admin Dose 500 MG; Start 06/26/16 at 09:00 Diltiazem HCl (Cardizem Cd) 240 mg DAILY PO Last administered on 07/03/16 09: 05; Admin Dose 240 MG; Start 07/01/16 at 12:00 Apixaban (Eliquis) 2.5 mg BID PO Last administered on 07/04/16 20:32; Admin Dose 2.5 MG; Start 07/01/16 at 09:30 Insulin Glargine (Lantus) 46 unit BID@08,20 SC Last administered on 07/04/16 20:50; Admin Dose 46 UNIT; Start 07/01/16 at 20:00; Status Future Hold Lorazepam (Ativan) 0.5 mg Q8H PRN PO ANXIETY Last administered on 07/03/16 03: 42; Admin Dose 0.5 MG; Start 07/03/16 at 04:00 Bumetanide (Bumex) 1 mg DAILY PO Last administered on 07/04/16 09:09; Admin Dose 1 MG; Start 07/03/16 at 09:00 Acetaminophen 650 mg 650 mg Q6H PRN [place] Fever; Start 07/05/16 at 00:00 Dextrose 1,000 ml @ 50 mls/hr Q20H IV Last administered on 07/05/16 01:21; Admin Dose 50 MLS/HR; Start 07/05/16 at 01:30 Acetaminophen 100 ml @ 400 mls/hr Q6 PRN IVPB FEVER Last administered on 01:26; Admin Dose 400 MLS/HR; Start 07/05/16 at 01:30 Piperacillin Sod/ Tazobactam Sod (Zosyn 3.375gm/ 100 ml (Pmx)) 100 ml @ 200 mls /hr Q8 IVPB Last administered on 07/05/16 13:42; Admin Dose 200 MLS/HR; Start 07/05/16 at 14:00 SHARLA SOUSA MD Jul 05, 2016 20:15
[2016-07-05] MEDS: LORAZEPAM 0.5 MG TAB PO SCH (21:00)
[2016-07-05] MEDS: ATORVASTATIN 40 MG TAB PO SCH (21:00)
[2016-07-05] MEDS: PREGABALIN 75 MG CAP PO SCH (21:00)
[2016-07-06] VITALS (12 sets, daily range): BP systolic 120–147; BP diastolic 65–98; PULSE 87–128; RESP 16–22
[2016-07-06] MEDS: DEXTROSE 5% 1,000 ML IV SCH (03:16)
[2016-07-06] MEDS: PIPER-TAZO 3.375 GM IV (PMX) 100 ML IVPB SCH ×3 (06:06→22:00)
[2016-07-06] MEDS: PANTOPRAZOLE (EC) 40 MG TAB PO SCH (06:07)
[2016-07-06] MEDS: LORAZEPAM 0.5 MG TAB PO PRN ×2 (06:45→23:51)
[2016-07-06 07:06] LABS: ADD SCAN DIFF NO
[2016-07-06 07:16] LABS: BASOPHILS % 0.1 % (0.0-2.0); EOSINOPHILS # 0.1 10^3/ul (0.0-0.5); EOSINOPHILS % 0.5 % (0.0-7.0); HEMATOCRIT 32.5 % (37.0-47.0); HEMOGLOBIN 10.2 g/dl (12.0-16.0); LYMPHOCYTES % 9.5 % (15.0-51.0); MEAN CORPUSCULAR HEMOGLOBIN 31.9 pg (29.0-33.0); MEAN CORPUSCULAR HGB CONC 31.4 g/dl (32.0-37.0); MEAN CORPUSCULAR VOLUME 101.6 fl (82.0-101.0); MEAN PLATELET VOLUME 12.4 fl (7.4-10.4); MONOCYTES % 9.4 % (0.0-11.0); NEUTROPHIL # 8.4 10^3/ul (1.6-7.5); NEUTROPHILS % 79.8 % (39.0-77.0); PLATELET COUNT 192 10^3/UL (140-415); RED CELL DISTRIBUTION WIDTH 15.7 % (11.5-14.5); WHITE BLOOD COUNT 10.5 10^3/ul (4.8-10.8)
[2016-07-06 07:34] LABS: CREATININE 2.19 mg/dl (0.44-1.00)
[2016-07-06 07:35] LABS: CALCIUM 8.2 mg/dl (8.4-10.2); MAGNESIUM 2.3 mg/dl (1.7-2.5); PHOSPHORUS 4.4 mg/dl (2.5-4.9)
[2016-07-06] MEDS: INSULIN ASPART [NOVOLOG] 3 ML PEN SC SCH ×7 (07:55→21:00)
[2016-07-06] MEDS: ALBUTEROL/IPRATROPIUM (NEB) 3 ML AMP HHN SCH ×3 (08:49→20:00)
[2016-07-06] MEDS: GABAPENTIN 300 MG CAP PO SCH ×3 (09:00→20:32)
[2016-07-06] MEDS: BETHANECHOL 25 MG TAB PO SCH ×3 (09:00→20:17)
[2016-07-06] MEDS: CAPSAICIN 0.025% 60 GM CR TOP SCH ×4 (09:00→21:48)
[2016-07-06] MEDS: METHYLDOPA 250 MG TAB PO SCH ×2 (09:00→20:16)
[2016-07-06] MEDS: INSULIN GLARGINE [LANtus] 3 ML PEN SC SCH ×2 (09:12→20:00)
--- NOTE | 2016-07-06 09:15 | PN ---
DATE: 07/06/2016 SUBJECTIVE: The patient was transferred from intensive care unit to telemetry. This morning, the p atient is alert and oriented x3. No other acute events noted. No hemoptysis, hematemesis or hemato chezia. OBJECTIVE: VITAL SIGNS: Blood pressure 127/98, respirations 20, pulse 80, temperature 98.1. HEENT: Head is normocephalic. NECK: Supple. HEART: Irregularly irregular. LUNGS: Show diminished sounds at the base. ABDOMEN: Soft, obese, positive tenderness to palpation right upper quadrant. No rebound, no guardi ng. EXTREMITIES: Negative for clubbing, cyanosis, no edema. DERMATOLOGIC: No rashes. MUSCULOSKELETAL: No joint effusions. NEUROLOGIC: No focal deficits. MEDICATIONS: The patient's medications have been reviewed. LABORATORY DATA: Shows sodium 147, potassium 4.0, BUN 67, creatinine 2.19. White count 10.5, hemog lobin 10.2, hematocrit 32.5, platelet count is 192. ASSESSMENT AND PLAN: 1. Acute hypoxemic hypercarbic respiratory failure, etiology secondary to chronic obstructive pulmo nary disease, sleep apnea, diastolic heart failure. The patient is clinically improving, is status post BiPAP. Will continue current medical management. Follow up with pulmonary. 2. Atrial fibrillation, currently rate controlled. Continue current medical management. Continue d iltiazem. Continue Eliquis. Follow up with Cardiology. 3. Systemic inflammatory response syndrome versus sepsis. The patient is currently on empiric anti biotics. Cultures have been sent, negative to date. Procalcitonin level is pending. We will follo w up urine cultures well. Continue IV antibiotics. Follow up with infectious disease. 4. Nonoliguric acute kidney injury on top of chronic kidney disease stage IV. Etiology secondary t o hemodynamics. The patient's renal function has been fluctuating and has improved in the last 24 t o 48 hours. At this point, continue current treatment plan, supportive care, renally dose all medic ations. 5. Acute decompensated diastolic heart failure. Etiology may be secondary to atrial fibrillation w ith rapid rate. The patient's chest x-ray shows worsening congestion, deferring diuretic management to cardiology. 6. Hypertension. Continue current blood pressure regimen. 7. Anemia. Continue to monitor hemoglobin and hematocrit levels. 8. Diabetes. The patient's glucose levels have improved. Continue current insulin regimen. We wi ll decrease Lantus to 30 units b.i.d. and continue sliding scale. 9. History of coronary artery disease. Continue medical regimen. 10. Chronic kidney disease, stage IV secondary to diabetes, hypertension. Continue current treatme nt plan. 11. Abdominal pain. Etiology is unclear. Will repeat CT scan of abdomen and pelvis. Continue to monitor. 12. Neuropathy. Continue Lyrica. 13. Sleep apnea. Continue CPAP at night. 14. GI and deep vein thrombosis prophylaxis. Continue proton pump inhibitor and Eliquis. 15. Mild hyponatremia. Will encourage free water intake. Dictated By: CRISTA HERNANDEZ DO NR/NTS Conf#: [id number] DID#: [id number]
--- NOTE | 2016-07-06 11:34 | CONS ---
Date/Time of Note Date/Time of Note DATE: 07/06/16 TIME: 11:29 Assessment/Plan Assessment/Plan Chief Complaint/Hosp Course A right ovarian cystic mass. Etiology is unclear, concerning for possible malignancy. PT IS DECLINING SURGERY AT PRESENT Anemia. Continue to monitor hemoglobin and hematocrit levels. + component ACD OBSERVE FOR BLEEDING AND HEMOLYSIS SERVIN / NUMBNESS LUE- RESOLVED CT HEAD- NEG LEUKOCYTOSIS REACTIVE ATB PER ID MONITOR CLOSELY FEVER, abd pain, UTI ID ATB UA/C -P CT ABD- P Acute hypoxemic hypercarbic respiratory failure. Etiology is multifactorial secondary to chronic obstructive pulmonary disease and sleep apnea. IMPROVED Atrial fibrillation with rapid ventricular rate. Etiology is unclear, possibly related to underlying hypoxemia. We will rule out other causes by checking serial troponins. The patient's rate is improved and controlled after receiving IV digoxin. We will continue current medical management with oral diltiazem. Continue Eliquis. We will follow up with cardiology and monitor. Nonoliguric acute kidney injury on top of chronic kidney disease with a previous baseline renal function around 1.5 to 2 mg/dL. Clinical albuminuria - PER NEPHROLOGY Urinary retention. Underlying etiology is unclear. The patient is status post Husain catheter placement with good urinary output. Seen by urology still unable to urinate on intermittent catheterizations URECHOLINE - DOSE INCREASED NOW WITH HUSAIN Acute decompensated diastolic heart failure. The patient noted to have pulmonary congestion, lower extremity edema. The patient is status post Lasix; will continue- PER NEPHRO cardiology F-UP PT IS IV BUMEX AROUND THE CLOCK History of coronary artery disease, status post coronary artery bypass graft. Continue current medical management. Diabetes. Will continue Accu-Cheks, insulin sliding scale, continue Lantus. HB A1C- 8.1. CONT lantus AND SC Chronic kidney disease stage IIIB/IV. Etiology is multifactorial secondary to diabetes, hypertension. The patient is currently in acute kidney injury as stated above. Continue medical management. Morbid obesity. Continue dietary modification. Dyslipidemia. Continue statin therapy. Obstructive sleep apnea. Continue supplemental oxygen. pulmonary F-UP Hypertension- BETTER CONTROLLED Continue current blood pressure regimen. Will adjust medications as needed. CARDIOLOGY F-UP History of peripheral vascular disease. Continue current medical management. LEGAL BLINDNESS SEVERE DJD/OA WITH CHRONIC PAIN GI PROBLEMS- WITH ABD PAIN, DIARRHEA/ ALTERNATING WITH CONSTIPATION GI F-UP Problems: Consultation Date/Type/Reason Admit Date/Time Jun 09, 2016 at 12:22 Initial Consult Date 06/09/16 Type of Consultation: [facility] 24 HR Interval Summary Free Text/Dictation all noted episode of severe abd pain with fever now better back to tele Exam/Review of Systems Vital Signs Vitals Vital Signs Date Time Temp Pulse Resp B/P Pulse Ox O2 Delivery O2 Flow Rate FiO2 07/06/16 08:51 98 18 96 Nasal Cannula 3.0 07/06/16 08:18 98.0 130/65 07/05/16 13:10 40 Intake and Output 07/05/16 07/05/16 07/06/16 15:00 23:00 07:00 Intake Total 0 ml 360 ml 850 ml Output Total 450 ml 250 ml 1000 ml Balance -450 ml 110 ml -150 ml Exam HEENT: Head is normocephalic. NECK: Supple. HEART: Irregularly irregular. LUNGS: Show diminished sounds at the base. ABDOMEN: Soft, obese, positive tenderness to palpation right upper quadrant. No rebound, no guarding. EXTREMITIES: Negative for clubbing, cyanosis, no edema. DERMATOLOGIC: No rashes. MUSCULOSKELETAL: No joint effusions. NEUROLOGIC: No focal deficits. Results Result Diagram: 07/06/16 0609 07/06/16 0609 Results 24 hrs Laboratory Tests Test 07/05/16 17:57 07/05/16 22:07 07/06/16 03:26 07/06/16 06:09 Bedside Glucose 149 140 152 Anion Gap 15 Basophils # 0.0 Basophils % 0.1 Blood Urea Nitrogen 67 H Calcium Level 8.2 L Carbon Dioxide Level 31 Chloride Level 105 Creatinine 2.19 H Eosinophils # 0.1 Eosinophils % 0.5 Glucose Level 180 Hematocrit 32.5 L Hemoglobin 10.2 L Lymphocytes # 1.0 Lymphocytes % 9.5 L Magnesium Level 2.3 Mean Corpuscular Hemoglobin 31.9 Mean Corpuscular Hemoglobin Concent 31.4 L Mean Corpuscular Volume 101.6 H Mean Platelet Volume 12.4 H Monocytes # 1.0 H Monocytes % 9.4 Neutrophils # 8.4 H Neutrophils % 79.8 H Nucleated Red Blood Cells # 0.0 Nucleated Red Blood Cells % 0.0 Phosphorus Level 4.4 Platelet Count 192 Potassium Level 4.0 Red Blood Count 3.20 L Red Cell Distribution Width 15.7 H Sodium Level 147 H White Blood Count 10.5 Test 07/06/16 09:01 Bedside Glucose 234 H Medications Medications Current Medications Gabapentin (Neurontin) 600 mg TID PO Last administered on 07/04/16 20:30; Admin Dose 600 MG; Start 06/09/16 at 21:00 Pregabalin (Lyrica) 150 mg QHS PO Last administered on 07/03/16 21:41; Admin Dose 150 MG; Start 06/09/16 at 21:00 Valacyclovir HCl (Valtrex) 1,000 mg BID PO Last administered on 07/04/16 20:30 ; Admin Dose 1,000 MG; Start 06/09/16 at 21:00 Miscellaneous Information 1 ea NOTE XX ; Start 06/09/16 at 18:30 Glucose (Glutose) 15 gm Q15M PRN PO DECREASED GLUCOSE; Start 06/09/16 at 18:30 Glucose (Glutose) 22.5 gm Q15M PRN PO DECREASED GLUCOSE; Start 06/09/16 at 18: 30 Dextrose (D50w Syringe) 25 ml Q15M PRN IV DECREASED GLUCOSE; Start 06/09/16 at 18:30 Dextrose (D50w Syringe) 50 ml Q15M PRN IV DECREASED GLUCOSE; Start 06/09/16 at 18:30 Glucagon (Glucagen) 1 mg Q15M PRN IM DECREASED GLUCOSE; Start 06/09/16 at 18:30 Glucose (Glutose) 15 gm Q15M PRN BUCCAL DECREASED GLUCOSE; Start 06/09/16 at 18 :30 Amlodipine Besylate (Norvasc) 10 mg DAILY PO Last administered on 07/03/16 09: 08; Admin Dose 10 MG; Start 06/09/16 at 20:30 Pantoprazole (Protonix Tab) 40 mg DAILY@06 PO Last administered on 07/06/16 06 :07; Admin Dose 40 MG; Start 06/11/16 at 06:00 Clonidine (Catapres) 0.2 mg Q6H PRN PO SBP above 160 Last administered on 10:22; Admin Dose 0.2 MG; Start 06/10/16 at 12:17 Hydralazine HCl (Apresoline) 10 mg Q4H PRN IV SBP >170 Last administered on 23:24; Admin Dose 10 MG; Start 06/10/16 at 15:00 Lorazepam (Ativan) 0.5 mg HS PO Last administered on 07/01/16 23:09; Admin Dose 0.5 MG; Start 06/11/16 at 22:00 Bethanechol Chloride (Urecholine) 25 mg TID PO Last administered on 07/04/16 20:27; Admin Dose 25 MG; Start 06/13/16 at 13:00 Linagliptin (Tradjenta) 5 mg DAILY PO Last administered on 07/04/16 09:10; Admin Dose 5 MG; Start 06/16/16 at 09:00 Capsaicin (Theragen) 1 applic QID TOP Last administered on 07/05/16 18:03; Admin Dose 1 APPLIC; Start 06/15/16 at 21:00 Lidocaine (Lidocaine 5% Oint) 1 applic TID PRN TOP ITCHING/PAIN; Start at 15:30 Docusate Sodium (Colace) 100 mg BID PO Last administered on 07/04/16 20:27; Admin Dose 100 MG; Start 06/16/16 at 15:00 Bisacodyl (Dulcolax) 10 mg DAILY PRN PO CONSTIPATION Last administered on 20:44; Admin Dose 10 MG; Start 06/16/16 at 14:00 Guaifenesin/ Dextromethorphan (Robitussin Dm Liquid Cup) 10 ml Q4H PRN PO COUGH ; Start 06/17/16 at 17:30 Fluticasone Propionate (Flonase 0.05% Nasal) 1 spray BID NASAL Last administered on 07/05/16 09:27; Admin Dose 1 SPRAY; Start 06/19/16 at 09:00 Atorvastatin Calcium (Lipitor) 40 mg HS PO Last administered on 07/04/16 20:30 ; Admin Dose 40 MG; Start 06/22/16 at 21:00 Morphine Sulfate (morphine) 2 mg Q4H PRN IV pain Last administered on 06/25/16 01:58; Admin Dose 2 MG; Start 06/22/16 at 10:30 Methyldopa (Aldomet) 500 mg BID PO Last administered on 07/04/16 20:30; Admin Dose 500 MG; Start 06/26/16 at 09:00 Diltiazem HCl (Cardizem Cd) 240 mg DAILY PO Last administered on 07/03/16 09: 05; Admin Dose 240 MG; Start 07/01/16 at 12:00 Apixaban (Eliquis) 2.5 mg BID PO Last administered on 07/04/16 20:32; Admin Dose 2.5 MG; Start 07/01/16 at 09:30 Lorazepam (Ativan) 0.5 mg Q8H PRN PO ANXIETY Last administered on 07/06/16 06: 45; Admin Dose 0.5 MG; Start 07/03/16 at 04:00 Bumetanide (Bumex) 1 mg DAILY PO Last administered on 07/04/16 09:09; Admin Dose 1 MG; Start 07/03/16 at 09:00 Acetaminophen 650 mg 650 mg Q6H PRN [place] Fever; Start 07/05/16 at 00:00 Acetaminophen 100 ml @ 400 mls/hr Q6 PRN IVPB FEVER Last administered on 01:26; Admin Dose 400 MLS/HR; Start 07/05/16 at 01:30 Piperacillin Sod/ Tazobactam Sod (Zosyn 3.375gm/ 100 ml (Pmx)) 100 ml @ 200 mls /hr Q8 IVPB Last administered on 07/06/16 06:06; Admin Dose 200 MLS/HR; Start 07/05/16 at 14:00 Insulin Glargine (Lantus) 30 unit BID@08,20 SC Last administered on 07/06/16 09:12; Admin Dose 30 UNIT; Start 07/06/16 at 08:00 SHARLA SOUSA MD Jul 06, 2016 11:34
--- NOTE | 2016-07-06 11:45 | RADRPT ---
PROCEDURE: CT Abdomen and Pelvis without contrast. CLINICAL INDICATION: Abdominal pain, adnexal mass, follow-up TECHNIQUE: CT of the abdomen and pelvis was performed on a multi-detector scanner without IV contr ast. Coronal and sagittal images were reformatted from the axial data set. One or more of the foll owing dose reduction techniques were used: automated exposure control, adjustment of the mA and/or kV according to patient size, use of iterative reconstruction technique. CTDI = 23.03 mGy. DLP = 13 98.71 mGy-cm. COMPARISON: MRI, 06/12/2016; CT, 06/09/2016 FINDINGS: CT abdomen: There are small bilateral pleural effusions. The heart size is normal, without pericardial effusion . Coronary arterial calcifications are noted. Cholelithiasis is seen without evidence for cholecys titis. Liver, biliary tree, pancreas, spleen, adrenal glands and kidneys are unremarkable. No urol ithiasis or obstructive uropathy is identified. The stomach is grossly unremarkable. The aorta is of normal caliber. Aortoiliac atherosclerotic calcifications are present. Prominent p eriaortic retroperitoneal lymph nodes are noted, grossly unchanged from the prior CT. The rashad hep atis region is clear. CT pelvis: No bowel obstruction, free intraperitoneal air or abscess is identified. There is no diverticulosis , diverticulitis or colitis. The appendix is well visualized and normal. Flynn catheter balloon is within the urinary bladder. Calcified uterine fibroids are noted measuring up to 4.8 cm. Complex multi septated cystic mass is again seen in the right adnexa, measuring approximately 10.4 x 6.9 cm (3-118), previously 9.5 x 6.5 cm. There is nonspecific mild prominence of bilateral pelvic lymph nod es, grossly stable. The surrounding osseous structures are remarkable for degenerative spondylosis of the spine. No ost eolytic or osteoblastic lesion is detected. IMPRESSION: 1. Complex multiseptated cystic mass is again seen in the right adnexa, demonstrating mild interval increase in size - findings remain concerning for ovarian malignancy. Consider surgical consultati on. 2. There is nonspecific mild prominence of periaortic and pelvic lymph nodes, grossly stable when c ompared to the prior CT - continued attention on follow-up is recommended. 3. There are small bilateral pleural effusions, new when compared to the prior CT. 4. Cholelithiasis is seen without evidence for cholecystitis. 5. Coronary arterial and aortoiliac atherosclerotic calcifications are present. 6. Calcified uterine fibroids are noted measuring up to 4.8 cm. 7. Flynn catheter balloon is within the urinary bladder. RPTAT: EE .Vamsi Florentino MD, Date Time Electronically viewed and signed by .Vamsi Florentino MD, on 07/06/2016 11:44 .R/
--- NOTE | 2016-07-06 12:47 | PN ---
DATE: 07/06/2016 SUBJECTIVE: No acute events overnight. The patient is alert, sitting comfortably in a chair. Severiano es pain, discomfort. She is febrile. LABORATORY: WBC today 10.5, H and H 10.2 and 32.5, platelets 192, neutrophils 79.8, BUN 67, creatin ine 2.19. MICROBIOLOGY: Urine culture from 07/05/2016 growing gram-negative megan, blood culture remain negativ e. DIAGNOSTICS: Patient had CT abdomen and pelvis that revealed complex multiseptated cystic mass in t he right adnexa with mild interval increase in size. Finding remain concerning for ovarian malignan cy, bilateral pleural effusion, cholelithiasis without evidence for cholecystitis, calcified uterine fibroids. INDWELLINGS: The patient has Flynn catheter. ANTIMICROBIALS: Zosyn. PHYSICAL EXAMINATION: GENERAL: This is a morbidly obese, elderly, Mexican speaking woman who is alert, in no distress. HEENT: Head atraumatic, normocephalic. Sclerae anicteric. Buccal mucosa pink. NECK: Obese. CHEST: Rise symmetrical. Breath sounds clear, diminished at the bases. HEART: S1, S2. ABDOMEN: Distended, soft. Bowel tones hypoactive. EXTREMITIES: Bilateral lower extremity edema, erythema. ASSESSMENT: 1. Sepsis. 2. Gram-negative rods urinary tract infection. 3. Bilateral lower extremities acute on chronic cellulitis. 4. Acute on chronic respiratory failure secondary to chronic obstructive pulmonary disease, sleep a pnea, diastolic heart failure, status post BiPAP. 5. Acute on chronic kidney disease. 6. Anemia. 7. Diabetes. 8. Coronary artery disease. 9. Right adnexal mass concern for ovarian malignancy, Hematology on case. ALLERGIES: ALLERGY TO SULFA. PLAN: The patient remains stable. Urine culture pending. We are going to add doxycycline to the r egimen for cellulitis of her bilateral lower extremities. Keep bilateral lower extremities elevated . Continue present care as per primary team and consultants. Dictated By: SILVER CARTER SENIOR PROJECT ACCOUNTANT for DRE ZAPATA/BIRGIT Conf#: [id number] DID#: [id number]
[2016-07-06] MEDS: FLUTICASONE 0.05% 16 GM NAS SPRAY NASAL SCH ×2 (13:11→20:18)
[2016-07-06] MEDS: DOCUSATE SODIUM 100 MG CAP PO SCH ×2 (13:13→20:16)
[2016-07-06] MEDS: VALACYCLOVIR 500 MG TAB PO SCH ×2 (13:13→20:17)
[2016-07-06] MEDS: BUMETANIDE 1 MG TAB PO SCH (13:13)
[2016-07-06] MEDS: LINAGLIPTIN 5 MG TABLET PO SCH (13:13)
[2016-07-06] MEDS: AMLODIPINE 10 MG TAB PO SCH (13:13)
[2016-07-06] MEDS: DILTIAZEM (CD) 240 MG CAP PO SCH (13:14)
[2016-07-06] MEDS: APIXABAN 5 MG TABLET PO SCH ×2 (13:16→20:17)
--- NOTE | 2016-07-06 14:16 | PN ---
DATE: REASON FOR FOLLOWUP: Shortness of breath. Patient Demidova remains stable this morning. No shortn ess of breath, no orthopnea, no PND. No fever, no chills. Denies any abdominal pain. No nausea, no vomiting. PHYSICAL EXAMINATION: VITAL SIGNS: Temperature 98, pulse is 110, blood pressure 130/65, O2 saturation 96% on 2 L nasal ca nnula. NECK: Supple. No JVD or lymphadenopathy. CARDIAC: S1, S2, no added sounds or murmurs. CHEST: Diminished air entry bilaterally. ABDOMEN: Soft, nontender. No guarding or rebound. EXTREMITIES: No cyanosis, clubbing. Edema +2 with no signs of venous stasis lower extremities. IMPRESSION AND PLAN: 1. Chronic venous stasis. 2. History of right ovarian cystic mass. 3. Recent urinary tract infection. 4. Obstructive sleep apnea. 5. Decompensated diastolic dysfunction. PLAN: 1. Continue supplemental O2. 2. Continue pulmonary toilet. 3. Continue renal recommendations. 4. Continue DVT and GI prophylaxis. From a pulmonary standpoint, the patient is close to being dis charged home. She has home CPAP and/or BiPAP which I have asked her to continue using. Dictated By: DAJUAN BUCHANAN/BIRGIT Conf#: [id number] DID#: [id number]
--- NOTE | 2016-07-06 19:46 | CONS ---
Date/Time of Note Date/Time of Note DATE: 07/06/16 TIME: 19:41 Assessment/Plan Assessment/Plan Chief Complaint/Hosp Course Paroxysmal atrial fibrillation: CHADSVASC is 3, started on anticoagulation Acute on chronic diastolic heart failure: Improved with diuresis Hypertension Ovarian mass: Evaluated by oncology, patient refusing surgery at this time Acute on chronic renal failure Urinary retention: requiring Flynn catheter CAD s/p CABG DM PVD s/p renal stent Sepsis and urinary tract infection: antibiotics per infectious disease -continue Bumex 1mg PO daily -continue diltiazem 240mg daily -continue amlodipine and methyldopa -continue Eliquis 2.5mg BID -continue atorvastatin 20mg daily Problems: Consultation Date/Type/Reason Admit Date/Time Jun 09, 2016 at 12:22 Initial Consult Date 06/10/16 Type of Consultation: Cardiology 24 HR Interval Summary Free Text/Dictation Breathing comfortably on nasal canula. Detailed Summary Additional Comments 14 point review of systems without changes. Exam/Review of Systems Vital Signs Vitals Vital Signs Date Time Temp Pulse Resp B/P Pulse Ox O2 Delivery O2 Flow Rate FiO2 07/06/16 16:45 112 07/06/16 16:29 99.3 20 147/76 95 07/06/16 14:02 Nasal Cannula 3.0 07/05/16 13:10 40 Intake and Output 07/05/16 07/05/16 07/06/16 15:00 23:00 07:00 Intake Total 0 ml 360 ml 850 ml Output Total 450 ml 250 ml 1000 ml Balance -450 ml 110 ml -150 ml Exam Constitutional: Alert, no distress Head: Atraumatic, normocephalic Neck: No jvd Respiratory: Crackles/rales, No clear to auscultation Cardiovascular: edema (2+), No regular rate and rhythm (IRIR), No systolic murmur Gastrointestinal: non-tender, soft, No distended Neurological: Nl mental status Results Result Diagram: 07/06/16 0609 07/06/16 0609 Results 24 hrs Laboratory Tests Test 07/05/16 22:07 07/06/16 03:26 07/06/16 06:09 07/06/16 09:01 Bedside Glucose 140 152 234 H Anion Gap 15 Basophils # 0.0 Basophils % 0.1 Blood Urea Nitrogen 67 H Calcium Level 8.2 L Carbon Dioxide Level 31 Chloride Level 105 Creatinine 2.19 H Eosinophils # 0.1 Eosinophils % 0.5 Glucose Level 180 Hematocrit 32.5 L Hemoglobin 10.2 L Lymphocytes # 1.0 Lymphocytes % 9.5 L Magnesium Level 2.3 Mean Corpuscular Hemoglobin 31.9 Mean Corpuscular Hemoglobin Concent 31.4 L Mean Corpuscular Volume 101.6 H Mean Platelet Volume 12.4 H Monocytes # 1.0 H Monocytes % 9.4 Neutrophils # 8.4 H Neutrophils % 79.8 H Nucleated Red Blood Cells # 0.0 Nucleated Red Blood Cells % 0.0 Phosphorus Level 4.4 Platelet Count 192 Potassium Level 4.0 Red Blood Count 3.20 L Red Cell Distribution Width 15.7 H Sodium Level 147 H White Blood Count 10.5 Test 07/06/16 12:23 07/06/16 18:21 Bedside Glucose 246 H 121 Medications Medications Current Medications Gabapentin (Neurontin) 600 mg TID PO Last administered on 07/06/16 13:14; Admin Dose 600 MG; Start 06/09/16 at 21:00 Pregabalin (Lyrica) 150 mg QHS PO Last administered on 07/03/16 21:41; Admin Dose 150 MG; Start 06/09/16 at 21:00 Valacyclovir HCl (Valtrex) 1,000 mg BID PO Last administered on 07/06/16 13:13 ; Admin Dose 1,000 MG; Start 06/09/16 at 21:00 Miscellaneous Information 1 ea NOTE XX ; Start 06/09/16 at 18:30 Glucose (Glutose) 15 gm Q15M PRN PO DECREASED GLUCOSE; Start 06/09/16 at 18:30 Glucose (Glutose) 22.5 gm Q15M PRN PO DECREASED GLUCOSE; Start 06/09/16 at 18: 30 Dextrose (D50w Syringe) 25 ml Q15M PRN IV DECREASED GLUCOSE; Start 06/09/16 at 18:30 Dextrose (D50w Syringe) 50 ml Q15M PRN IV DECREASED GLUCOSE; Start 06/09/16 at 18:30 Glucagon (Glucagen) 1 mg Q15M PRN IM DECREASED GLUCOSE; Start 06/09/16 at 18:30 Glucose (Glutose) 15 gm Q15M PRN BUCCAL DECREASED GLUCOSE; Start 06/09/16 at 18 :30 Amlodipine Besylate (Norvasc) 10 mg DAILY PO Last administered on 07/06/16 13: 13; Admin Dose 10 MG; Start 06/09/16 at 20:30 Pantoprazole (Protonix Tab) 40 mg DAILY@06 PO Last administered on 07/06/16 06 :07; Admin Dose 40 MG; Start 06/11/16 at 06:00 Clonidine (Catapres) 0.2 mg Q6H PRN PO SBP above 160 Last administered on 10:22; Admin Dose 0.2 MG; Start 06/10/16 at 12:17 Hydralazine HCl (Apresoline) 10 mg Q4H PRN IV SBP >170 Last administered on 23:24; Admin Dose 10 MG; Start 06/10/16 at 15:00 Lorazepam (Ativan) 0.5 mg HS PO Last administered on 07/01/16 23:09; Admin Dose 0.5 MG; Start 06/11/16 at 22:00 Bethanechol Chloride (Urecholine) 25 mg TID PO Last administered on 07/06/16 13:00; Admin Dose 25 MG; Start 06/13/16 at 13:00 Linagliptin (Tradjenta) 5 mg DAILY PO Last administered on 07/06/16 13:13; Admin Dose 5 MG; Start 06/16/16 at 09:00 Capsaicin (Theragen) 1 applic QID TOP Last administered on 07/06/16 18:24; Admin Dose 1 APPLIC; Start 06/15/16 at 21:00 Lidocaine (Lidocaine 5% Oint) 1 applic TID PRN TOP ITCHING/PAIN; Start at 15:30 Docusate Sodium (Colace) 100 mg BID PO Last administered on 07/06/16 13:13; Admin Dose 100 MG; Start 06/16/16 at 15:00 Bisacodyl (Dulcolax) 10 mg DAILY PRN PO CONSTIPATION Last administered on 20:44; Admin Dose 10 MG; Start 06/16/16 at 14:00 Guaifenesin/ Dextromethorphan (Robitussin Dm Liquid Cup) 10 ml Q4H PRN PO COUGH ; Start 06/17/16 at 17:30 Fluticasone Propionate (Flonase 0.05% Nasal) 1 spray BID NASAL Last administered on 07/06/16 13:11; Admin Dose 1 SPRAY; Start 06/19/16 at 09:00 Atorvastatin Calcium (Lipitor) 40 mg HS PO Last administered on 07/04/16 20:30 ; Admin Dose 40 MG; Start 06/22/16 at 21:00 Morphine Sulfate (morphine) 2 mg Q4H PRN IV pain Last administered on 06/25/16 01:58; Admin Dose 2 MG; Start 06/22/16 at 10:30 Methyldopa (Aldomet) 500 mg BID PO Last administered on 07/06/16 09:00; Admin Dose 500 MG; Start 06/26/16 at 09:00 Diltiazem HCl (Cardizem Cd) 240 mg DAILY PO Last administered on 07/06/16 13: 14; Admin Dose 240 MG; Start 07/01/16 at 12:00 Apixaban (Eliquis) 2.5 mg BID PO Last administered on 07/06/16 13:16; Admin Dose 2.5 MG; Start 07/01/16 at 09:30 Lorazepam (Ativan) 0.5 mg Q8H PRN PO ANXIETY Last administered on 07/06/16 06: 45; Admin Dose 0.5 MG; Start 07/03/16 at 04:00 Bumetanide (Bumex) 1 mg DAILY PO Last administered on 07/06/16 13:13; Admin Dose 1 MG; Start 07/03/16 at 09:00 Acetaminophen 650 mg 650 mg Q6H PRN [place] Fever; Start 07/05/16 at 00:00 Acetaminophen 100 ml @ 400 mls/hr Q6 PRN IVPB FEVER Last administered on 01:26; Admin Dose 400 MLS/HR; Start 07/05/16 at 01:30 Piperacillin Sod/ Tazobactam Sod (Zosyn 3.375gm/ 100 ml (Pmx)) 100 ml @ 200 mls /hr Q8 IVPB Last administered on 07/06/16 06:06; Admin Dose 200 MLS/HR; Start 07/05/16 at 14:00 Insulin Glargine (Lantus) 30 unit BID@08,20 SC Last administered on 07/06/16 09:12; Admin Dose 30 UNIT; Start 07/06/16 at 08:00 Doxycycline Hyclate (Vibramycin) 100 mg BID PO ; Start 07/06/16 at 21:00 LOLI MCCARTNEY MD Jul 06, 2016 19:45
[2016-07-06 20:01] LABS: ADD UMIC YES; URINE BILIRUBIN (Dip) NEGATIVE (NEGATIVE); URINE BLOOD (Dip) 2+ (NEGATIVE); URINE COLOR LT. YELLOW (YELLOW); URINE GLUCOSE (Dip) NEGATIVE (NEGATIVE); URINE KETONES (Dip) NEGATIVE (NEGATIVE); URINE LEUKOCYTE ESTERASE (Dip) 3+ (NEGATIVE); URINE NITRITE (Dip) NEGATIVE (NEGATIVE); URINE TOTAL PROTEIN (Dip) 1+ (NEGATIVE); URINE UROBILINOGEN (Dip) 0.2 E.U./dL (0.1-1.0)
[2016-07-06] MEDS: ATORVASTATIN 40 MG TAB PO SCH (20:16)
[2016-07-06] MEDS: DOXYCYCLINE 100 MG TAB PO SCH (20:17)
[2016-07-06] MEDS: LORAZEPAM 0.5 MG TAB PO SCH (20:18)
[2016-07-06 20:36] LABS: BACTERIA,URINE MODERATE
[2016-07-06] MEDS: PREGABALIN 75 MG CAP PO SCH (20:45)
[2016-07-07] VITALS (9 sets, daily range): BP systolic 116–132; BP diastolic 55–70; PULSE 80–160; RESP 18–22
[2016-07-07] MEDS: PIPER-TAZO 3.375 GM IV (PMX) 100 ML IVPB SCH ×2 (06:00→13:37)
[2016-07-07] MEDS: PANTOPRAZOLE (EC) 40 MG TAB PO SCH (06:31)
[2016-07-07] MEDS: INSULIN ASPART [NOVOLOG] 3 ML PEN SC SCH ×6 (07:55→17:55)
[2016-07-07] MEDS: FLUTICASONE 0.05% 16 GM NAS SPRAY NASAL SCH (08:40)
[2016-07-07] MEDS: CAPSAICIN 0.025% 60 GM CR TOP SCH ×3 (08:40→17:00)
[2016-07-07] MEDS: INSULIN GLARGINE [LANtus] 3 ML PEN SC SCH (08:43)
[2016-07-07] MEDS: ALBUTEROL/IPRATROPIUM (NEB) 3 ML AMP HHN SCH ×2 (08:54→14:18)
--- NOTE | 2016-07-07 08:59 | PN ---
DATE: 07/07/2016 SUBJECTIVE: Yesterday, the patient pulled out her IV access despite the necessity of IV antibiotics . The patient states she wants to go home, and the patient's who was at the bedside stated that she wants to go home and will leave against medical advice. I attempted to convince the patien t to stay in the hospital, to continue IV antibiotics. She is refusing. No other events noted. OBJECTIVE: VITAL SIGNS: Blood pressure is 117/62, respirations 18, pulse 80, temperature 98.4. I'S AND O'S: The patient had 850 in with 2 L out. HEENT: Head is normocephalic. NECK: Supple. HEART: Regular rate. LUNGS: Show diminished breath sounds at the base. ABDOMEN: Obese, soft, nontender to palpation. EXTREMITIES: Negative for clubbing, cyanosis. Positive edema, positive chronic venous insufficienc y changes. No change. DERMATOLOGIC: No rashes. NEUROLOGIC: No focal deficits. MEDICATIONS: The patient's medications have been reviewed. LABORATORY DATA: Shows laboratory data from July 07 is currently pending. The patient's urinaly sis shows greater than 200 WBCs, moderate bacteria. Urine culture on July 05 is growing out gram -negative rods. ASSESSMENT AND PLAN: 1. Sepsis secondary to urinary tract infection. The patient is currently on antibiotic therapy wit h clinical improvement. The patient, however, is refusing further IV antibiotic therapy. The risks and benefits were explained to the patient. Will continue to monitor. Follow up with infectious d isyahaira. 2. Acute hypoxemic hypercarbic respiratory failure secondary to chronic obstructive pulmonary disea se, obstructive sleep apnea, diastolic heart failure. The patient is clinically improving. Will co ntinue CPAP at night. Continue supplemental oxygen. Follow up with pulmonary. 3. Atrial fibrillation, currently rate controlled. Continue medical management with diltiazem and Eliquis. 4. Nonoliguric acute kidney injury on top of chronic kidney disease, stage IV, etiology is hemodyna mics. The patient's renal function appears to have stabilized. Continue supportive care, renally d ose all meds, avoid nephrotoxins. 5. Hypernatremia. Continue to encourage free water intake. 6. Acute decompensated heart failure. Continue current medical management. Continue diuretic ther apy. Being managed by cardiology. 7. Chronic venous insufficiency changes. The patient may have now a component of acute cellulitis. Continue current IV antibiotics. 8. Hypertension. Continue current blood pressure regimen. 9. Anemia. Continue to monitor hemoglobin and hematocrit levels. 10. Diabetes. Continue current insulin regimen. 11. Chronic kidney disease, stage IV secondary to diabetes, hypertension. Continue current treatme nt plan. 12. Abdominal pain. The patient is status post CT scan of abdomen and pelvis, found increase in th e ovarian mass. The patient has refused surgery. Will continue to monitor. 13. Neuropathy. Continue Lyrica. 14. Sleep apnea. Continue CPAP at night. 15. Gastrointestinal and deep venous thrombosis prophylaxis. Continue proton pump inhibitor and El iquis. 16. Anemia of chronic disease. Continue to monitor H and H levels. 17. Mineral bone disorder, monitor calcium and phosphorus levels. No need for phosphate binders. Dictated By: CRISTA GAINES/BIRGIT Conf#: [id number] DID#: [id number]
[2016-07-07] MEDS: BUMETANIDE 1 MG TAB PO SCH (09:00)
[2016-07-07] MEDS: DILTIAZEM (CD) 240 MG CAP PO SCH (10:12)
[2016-07-07] MEDS: GABAPENTIN 300 MG CAP PO SCH ×2 (10:12→13:35)
[2016-07-07] MEDS: AMLODIPINE 10 MG TAB PO SCH (10:12)
[2016-07-07] MEDS: LINAGLIPTIN 5 MG TABLET PO SCH (10:13)
[2016-07-07] MEDS: VALACYCLOVIR 500 MG TAB PO SCH (10:13)
[2016-07-07] MEDS: DOCUSATE SODIUM 100 MG CAP PO SCH (10:13)
[2016-07-07] MEDS: APIXABAN 5 MG TABLET PO SCH (10:13)
[2016-07-07] MEDS: BETHANECHOL 25 MG TAB PO SCH ×2 (10:13→13:35)
[2016-07-07] MEDS: METHYLDOPA 250 MG TAB PO SCH (10:14)
[2016-07-07] MEDS: DOXYCYCLINE 100 MG TAB PO SCH (10:15)
--- NOTE | 2016-07-07 15:27 | PN ---
DATE: 07/07/2016 SUBJECTIVE: Patient is stable this morning, awake, alert, oriented, talking in full and complete se ntences requesting to go home. PHYSICAL EXAMINATION: VITAL SIGNS: Temperature 98, pulse is 83, blood pressure 132/65, O2 saturation 96% on 2 L nasal can nula. NECK: Supple. No JVD or lymphadenopathy. CARDIAC: S1, S2, no added sounds or murmurs. CHEST: Diminished air entry bilaterally. ABDOMEN: Soft, nontender. No guarding or rebound. EXTREMITIES: No cyanosis, clubbing or edema. NEUROLOGIC: Grossly intact. No focal deficits. IMPRESSION AND PLAN: 1. Resolving hypercapnic respiratory failure. 2. Morbid obesity. 3. Likely diastolic dysfunction. PLAN: The patient is stable for discharge from pulmonary standpoint. Should continue with home CPA P and/or BiPAP. Continue supplemental O2, deep venous thrombosis and gastrointestinal prophylaxis. Follow up with primary care as an outpatient. Dictated By: DAJUAN BUCHANAN/BIRGIT Conf#: [id number] DID#: [id number]
--- NOTE | 2016-07-07 16:25 | CONS ---
Date/Time of Note Date/Time of Note DATE: 07/07/16 TIME: 16:22 Assessment/Plan Assessment/Plan Chief Complaint/Hosp Course SUBJECTIVE: No acute events overnight. The patient is sleeping, looks comfortable, no fevers MICROBIOLOGY: Urine culture from 07/05/2016 growing E coli, blood culture remain negative. DIAGNOSTICS: Patient had CT abdomen and pelvis that revealed complex multiseptated cystic mass in the right adnexa with mild interval increase in size. Finding remain concerning for ovarian malignancy, bilateral pleural effusion, cholelithiasis without evidence for cholecystitis, calcified uterine fibroids. INDWELLINGS: The patient has Flynn catheter. ANTIMICROBIALS: Zosyn, Doxycycline. PHYSICAL EXAMINATION: GENERAL: This is a morbidly obese, elderly, Kuwaiti speaking woman who is alert , in no distress. HEENT: Head atraumatic, normocephalic. Sclerae anicteric. Buccal mucosa pink. NECK: Obese. CHEST: Rise symmetrical. Breath sounds clear, diminished at the bases. HEART: S1, S2. ABDOMEN: Distended, soft. Bowel tones hypoactive. EXTREMITIES: Bilateral lower extremity edema, erythema. ASSESSMENT: 1. Sepsis. 2. Gram-negative rods urinary tract infection. 3. Bilateral lower extremities acute on chronic cellulitis. 4. Acute on chronic respiratory failure secondary to chronic obstructive pulmonary disease, sleep apnea, diastolic heart failure, status post BiPAP. 5. Acute on chronic kidney disease. 6. Anemia. 7. Diabetes. 8. Coronary artery disease. 9. Right adnexal mass concern for ovarian malignancy, Hematology on case. ALLERGIES: ALLERGY TO SULFA. PLAN: The patient remains stable. Change Zosyn to Keflex, continue Doxycycline. Keep bilateral lower extremities elevated. Continue present care as per primary team and consultants. DW DW Dr Munson Problems: Consultation Date/Type/Reason Admit Date/Time Jun 09, 2016 at 12:22 Initial Consult Date 06/15/16 Type of Consultation: id Exam/Review of Systems Vital Signs Vitals Vital Signs Date Time Temp Pulse Resp B/P Pulse Ox O2 Delivery O2 Flow Rate FiO2 07/07/16 15:07 98.2 86 22 116/55 98 07/07/16 14:18 3.0 07/07/16 14:18 Nasal Cannula 07/05/16 13:10 40 Intake and Output 07/06/16 07/06/16 07/07/16 15:00 23:00 07:00 Intake Total 850 ml Output Total 2000 ml Balance -1150 ml Results Result Diagram: 07/06/16 0609 07/06/16 0609 Results 24 hrs Laboratory Tests Test 07/06/16 18:21 07/06/16 19:30 07/06/16 20:15 07/07/16 13:09 Bedside Glucose 121 98 343 H Urine Bacteria MODERATE Urine Bilirubin NEGATIVE Urine Clarity CLOUDY Urine Color LT. YELLOW Urine Epithelial Cells FEW Urine Glucose NEGATIVE Urine Hemoglobin 2+ H Urine Ketones NEGATIVE Urine Leukocyte Esterase 3+ H Urine Microscopic RBC 5-10 Urine Microscopic WBC >200 Urine Nitrite NEGATIVE Urine Specific [place] 1.010 Urine Total Protein 1+ H Urine Urobilinogen 0.2 E.U./dL Urine pH 5.5 Medications Medications Current Medications Gabapentin (Neurontin) 600 mg TID PO Last administered on 07/07/16 13:35; Admin Dose 600 MG; Start 06/09/16 at 21:00 Pregabalin (Lyrica) 150 mg QHS PO Last administered on 07/06/16 20:45; Admin Dose 150 MG; Start 06/09/16 at 21:00 Valacyclovir HCl (Valtrex) 1,000 mg BID PO Last administered on 07/07/16 10:13 ; Admin Dose 1,000 MG; Start 06/09/16 at 21:00 Miscellaneous Information 1 ea NOTE XX ; Start 06/09/16 at 18:30 Glucose (Glutose) 15 gm Q15M PRN PO DECREASED GLUCOSE; Start 06/09/16 at 18:30 Glucose (Glutose) 22.5 gm Q15M PRN PO DECREASED GLUCOSE; Start 06/09/16 at 18: 30 Dextrose (D50w Syringe) 25 ml Q15M PRN IV DECREASED GLUCOSE; Start 06/09/16 at 18:30 Dextrose (D50w Syringe) 50 ml Q15M PRN IV DECREASED GLUCOSE; Start 06/09/16 at 18:30 Glucagon (Glucagen) 1 mg Q15M PRN IM DECREASED GLUCOSE; Start 06/09/16 at 18:30 Glucose (Glutose) 15 gm Q15M PRN BUCCAL DECREASED GLUCOSE; Start 06/09/16 at 18 :30 Amlodipine Besylate (Norvasc) 10 mg DAILY PO Last administered on 07/07/16 10: 12; Admin Dose 10 MG; Start 06/09/16 at 20:30 Pantoprazole (Protonix Tab) 40 mg DAILY@06 PO Last administered on 07/07/16 06 :31; Admin Dose 40 MG; Start 06/11/16 at 06:00 Clonidine (Catapres) 0.2 mg Q6H PRN PO SBP above 160 Last administered on 10:22; Admin Dose 0.2 MG; Start 06/10/16 at 12:17 Hydralazine HCl (Apresoline) 10 mg Q4H PRN IV SBP >170 Last administered on 23:24; Admin Dose 10 MG; Start 06/10/16 at 15:00 Lorazepam (Ativan) 0.5 mg HS PO Last administered on 07/06/16 20:18; Admin Dose 0.5 MG; Start 06/11/16 at 22:00 Bethanechol Chloride (Urecholine) 25 mg TID PO Last administered on 07/07/16 13:35; Admin Dose 25 MG; Start 06/13/16 at 13:00 Linagliptin (Tradjenta) 5 mg DAILY PO Last administered on 07/07/16 10:13; Admin Dose 5 MG; Start 06/16/16 at 09:00 Capsaicin (Theragen) 1 applic QID TOP Last administered on 07/07/16 13:36; Admin Dose 1 APPLIC; Start 06/15/16 at 21:00 Lidocaine (Lidocaine 5% Oint) 1 applic TID PRN TOP ITCHING/PAIN; Start at 15:30 Docusate Sodium (Colace) 100 mg BID PO Last administered on 07/07/16 10:13; Admin Dose 100 MG; Start 06/16/16 at 15:00 Bisacodyl (Dulcolax) 10 mg DAILY PRN PO CONSTIPATION Last administered on 20:44; Admin Dose 10 MG; Start 06/16/16 at 14:00 Guaifenesin/ Dextromethorphan (Robitussin Dm Liquid Cup) 10 ml Q4H PRN PO COUGH ; Start 06/17/16 at 17:30 Fluticasone Propionate (Flonase 0.05% Nasal) 1 spray BID NASAL Last administered on 07/07/16 08:40; Admin Dose 1 SPRAY; Start 06/19/16 at 09:00 Atorvastatin Calcium (Lipitor) 40 mg HS PO Last administered on 07/06/16 20:16 ; Admin Dose 40 MG; Start 06/22/16 at 21:00 Morphine Sulfate (morphine) 2 mg Q4H PRN IV pain Last administered on 06/25/16 01:58; Admin Dose 2 MG; Start 06/22/16 at 10:30 Methyldopa (Aldomet) 500 mg BID PO Last administered on 07/07/16 10:14; Admin Dose 500 MG; Start 06/26/16 at 09:00 Diltiazem HCl (Cardizem Cd) 240 mg DAILY PO Last administered on 07/07/16 10: 12; Admin Dose 240 MG; Start 07/01/16 at 12:00 Apixaban (Eliquis) 2.5 mg BID PO Last administered on 07/07/16 10:13; Admin Dose 2.5 MG; Start 07/01/16 at 09:30 Lorazepam (Ativan) 0.5 mg Q8H PRN PO ANXIETY Last administered on 07/06/16 23: 51; Admin Dose 0.5 MG; Start 07/03/16 at 04:00 Bumetanide (Bumex) 1 mg DAILY PO Last administered on 07/07/16 09:00; Admin Dose 1 MG; Start 07/03/16 at 09:00 Acetaminophen 650 mg 650 mg Q6H PRN [place] Fever; Start 07/05/16 at 00:00 Acetaminophen 100 ml @ 400 mls/hr Q6 PRN IVPB FEVER Last administered on 01:26; Admin Dose 400 MLS/HR; Start 07/05/16 at 01:30 Piperacillin Sod/ Tazobactam Sod (Zosyn 3.375gm/ 100 ml (Pmx)) 100 ml @ 200 mls /hr Q8 IVPB Last administered on 07/06/16 06:06; Admin Dose 200 MLS/HR; Start 07/05/16 at 14:00 Insulin Glargine (Lantus) 30 unit BID@08,20 SC Last administered on 07/07/16 08:43; Admin Dose 30 UNIT; Start 07/06/16 at 08:00 Doxycycline Hyclate (Vibramycin) 100 mg BID PO Last administered on 07/07/16t 10:15; Admin Dose 100 MG; Start 07/06/16 at 21:00 SILVER CARTER NP Jul 07, 2016 16:24
--- NOTE | 2016-07-07 18:29 | CONS ---
Date/Time of Note Date/Time of Note DATE: 07/07/16 TIME: 18:27 Assessment/Plan Assessment/Plan Chief Complaint/Hosp Course Paroxysmal atrial fibrillation: CHADSVASC is 3, started on anticoagulation Acute on chronic diastolic heart failure: Improved with diuresis Hypertension Ovarian mass: Evaluated by oncology, patient refusing surgery at this time Acute on chronic renal failure Urinary retention: requiring Flynn catheter CAD s/p CABG DM PVD s/p renal stent Sepsis and urinary tract infection: antibiotics per infectious disease -continue Bumex 1mg PO daily -continue diltiazem 240mg daily -continue amlodipine and methyldopa -continue Eliquis 2.5mg BID -continue atorvastatin 20mg daily Problems: Consultation Date/Type/Reason Admit Date/Time Jun 09, 2016 at 12:22 Initial Consult Date 06/10/16 Type of Consultation: Cardiology 24 HR Interval Summary Free Text/Dictation No acute events. Detailed Summary Additional Comments 14 point review of systems without changes. Exam/Review of Systems Vital Signs Vitals Vital Signs Date Time Temp Pulse Resp B/P Pulse Ox O2 Delivery O2 Flow Rate FiO2 07/07/16 16:32 160 07/07/16 15:07 98.2 22 116/55 98 07/07/16 14:18 3.0 07/07/16 14:18 Nasal Cannula 07/05/16 13:10 40 Intake and Output 07/06/16 07/06/16 07/07/16 15:00 23:00 07:00 Intake Total 850 ml Output Total 2000 ml Balance -1150 ml Exam Constitutional: Alert, no distress Head: Atraumatic, normocephalic Neck: No jvd Respiratory: Crackles/rales, No clear to auscultation Cardiovascular: edema (2+), No regular rate and rhythm (IRIR), No systolic murmur Gastrointestinal: non-tender, soft, No distended Neurological: Nl mental status Results Result Diagram: 07/06/16 0609 07/06/16 0609 Results 24 hrs Laboratory Tests Test 07/06/16 19:30 07/06/16 20:15 07/07/16 13:09 Urine Bacteria MODERATE Urine Bilirubin NEGATIVE Urine Clarity CLOUDY Urine Color LT. YELLOW Urine Epithelial Cells FEW Urine Glucose NEGATIVE Urine Hemoglobin 2+ H Urine Ketones NEGATIVE Urine Leukocyte Esterase 3+ H Urine Microscopic RBC 5-10 Urine Microscopic WBC >200 Urine Nitrite NEGATIVE Urine Specific [place] 1.010 Urine Total Protein 1+ H Urine Urobilinogen 0.2 E.U./dL Urine pH 5.5 Bedside Glucose 98 343 H Medications Medications Current Medications Gabapentin (Neurontin) 600 mg TID PO Last administered on 07/07/16 13:35; Admin Dose 600 MG; Start 06/09/16 at 21:00 Pregabalin (Lyrica) 150 mg QHS PO Last administered on 07/06/16 20:45; Admin Dose 150 MG; Start 06/09/16 at 21:00 Valacyclovir HCl (Valtrex) 1,000 mg BID PO Last administered on 07/07/16 10:13 ; Admin Dose 1,000 MG; Start 06/09/16 at 21:00 Miscellaneous Information 1 ea NOTE XX ; Start 06/09/16 at 18:30 Glucose (Glutose) 15 gm Q15M PRN PO DECREASED GLUCOSE; Start 06/09/16 at 18:30 Glucose (Glutose) 22.5 gm Q15M PRN PO DECREASED GLUCOSE; Start 06/09/16 at 18: 30 Dextrose (D50w Syringe) 25 ml Q15M PRN IV DECREASED GLUCOSE; Start 06/09/16 at 18:30 Dextrose (D50w Syringe) 50 ml Q15M PRN IV DECREASED GLUCOSE; Start 06/09/16 at 18:30 Glucagon (Glucagen) 1 mg Q15M PRN IM DECREASED GLUCOSE; Start 06/09/16 at 18:30 Glucose (Glutose) 15 gm Q15M PRN BUCCAL DECREASED GLUCOSE; Start 06/09/16 at 18 :30 Amlodipine Besylate (Norvasc) 10 mg DAILY PO Last administered on 07/07/16 10: 12; Admin Dose 10 MG; Start 06/09/16 at 20:30 Pantoprazole (Protonix Tab) 40 mg DAILY@06 PO Last administered on 07/07/16 06 :31; Admin Dose 40 MG; Start 06/11/16 at 06:00 Clonidine (Catapres) 0.2 mg Q6H PRN PO SBP above 160 Last administered on 10:22; Admin Dose 0.2 MG; Start 06/10/16 at 12:17 Hydralazine HCl (Apresoline) 10 mg Q4H PRN IV SBP >170 Last administered on 23:24; Admin Dose 10 MG; Start 06/10/16 at 15:00 Lorazepam (Ativan) 0.5 mg HS PO Last administered on 07/06/16 20:18; Admin Dose 0.5 MG; Start 06/11/16 at 22:00 Bethanechol Chloride (Urecholine) 25 mg TID PO Last administered on 07/07/16 13:35; Admin Dose 25 MG; Start 06/13/16 at 13:00 Linagliptin (Tradjenta) 5 mg DAILY PO Last administered on 07/07/16 10:13; Admin Dose 5 MG; Start 06/16/16 at 09:00 Capsaicin (Theragen) 1 applic QID TOP Last administered on 07/07/16 13:36; Admin Dose 1 APPLIC; Start 06/15/16 at 21:00 Lidocaine (Lidocaine 5% Oint) 1 applic TID PRN TOP ITCHING/PAIN; Start at 15:30 Docusate Sodium (Colace) 100 mg BID PO Last administered on 07/07/16 10:13; Admin Dose 100 MG; Start 06/16/16 at 15:00 Bisacodyl (Dulcolax) 10 mg DAILY PRN PO CONSTIPATION Last administered on 20:44; Admin Dose 10 MG; Start 06/16/16 at 14:00 Guaifenesin/ Dextromethorphan (Robitussin Dm Liquid Cup) 10 ml Q4H PRN PO COUGH ; Start 06/17/16 at 17:30 Fluticasone Propionate (Flonase 0.05% Nasal) 1 spray BID NASAL Last administered on 07/07/16 08:40; Admin Dose 1 SPRAY; Start 06/19/16 at 09:00 Atorvastatin Calcium (Lipitor) 40 mg HS PO Last administered on 07/06/16 20:16 ; Admin Dose 40 MG; Start 06/22/16 at 21:00 Morphine Sulfate (morphine) 2 mg Q4H PRN IV pain Last administered on 06/25/16 01:58; Admin Dose 2 MG; Start 06/22/16 at 10:30 Methyldopa (Aldomet) 500 mg BID PO Last administered on 07/07/16 10:14; Admin Dose 500 MG; Start 06/26/16 at 09:00 Diltiazem HCl (Cardizem Cd) 240 mg DAILY PO Last administered on 07/07/16 10: 12; Admin Dose 240 MG; Start 07/01/16 at 12:00 Apixaban (Eliquis) 2.5 mg BID PO Last administered on 07/07/16 10:13; Admin Dose 2.5 MG; Start 07/01/16 at 09:30 Lorazepam (Ativan) 0.5 mg Q8H PRN PO ANXIETY Last administered on 07/06/16 23: 51; Admin Dose 0.5 MG; Start 07/03/16 at 04:00 Bumetanide (Bumex) 1 mg DAILY PO Last administered on 07/07/16 09:00; Admin Dose 1 MG; Start 07/03/16 at 09:00 Acetaminophen 650 mg 650 mg Q6H PRN [place] Fever; Start 07/05/16 at 00:00 Acetaminophen (Ofirmev 1000mg/ 100ml Iv) 100 ml @ 400 mls/hr Q6 PRN IVPB FEVER Last administered on 07/05/16 01:26; Admin Dose 400 MLS/HR; Start at 01:30 Insulin Glargine (Lantus) 30 unit BID@08,20 SC Last administered on 07/07/16 08:43; Admin Dose 30 UNIT; Start 07/06/16 at 08:00 Doxycycline Hyclate (Vibramycin) 100 mg BID PO Last administered on 07/07/16 10:15; Admin Dose 100 MG; Start 07/06/16 at 21:00 Cephalexin (Keflex) 250 mg Q8 PO ; Start 07/07/16 at 22:00 LOLI MCCARTNEY MD Jul 07, 2016 18:28
[2016-07-07] MEDS ORDERED: CEPHALEXIN 250 MG CAP PO SCH (22:00)
--- NOTE | 2016-07-07 23:09 | CONS ---
Date/Time of Note Date/Time of Note DATE: 07/07/16 TIME: 11:09 Assessment/Plan Assessment/Plan Chief Complaint/Hosp Course A right ovarian cystic mass. Etiology is unclear, concerning for possible malignancy. PT IS DECLINING SURGERY AT PRESENT Anemia. Continue to monitor hemoglobin and hematocrit levels. + component ACD OBSERVE FOR BLEEDING AND HEMOLYSIS SERVIN / NUMBNESS LUE- RESOLVED CT HEAD- NEG LEUKOCYTOSIS REACTIVE ATB PER ID MONITOR CLOSELY FEVER, abd pain, UTI ID ATB UA/C -P CT ABD- P Acute hypoxemic hypercarbic respiratory failure. Etiology is multifactorial secondary to chronic obstructive pulmonary disease and sleep apnea. IMPROVED Atrial fibrillation with rapid ventricular rate. Etiology is unclear, possibly related to underlying hypoxemia. We will rule out other causes by checking serial troponins. The patient's rate is improved and controlled after receiving IV digoxin. We will continue current medical management with oral diltiazem. Continue Eliquis. We will follow up with cardiology and monitor. Nonoliguric acute kidney injury on top of chronic kidney disease with a previous baseline renal function around 1.5 to 2 mg/dL. Clinical albuminuria - PER NEPHROLOGY Urinary retention. Underlying etiology is unclear. The patient is status post Husain catheter placement with good urinary output. Seen by urology still unable to urinate on intermittent catheterizations URECHOLINE - DOSE INCREASED NOW WITH HUSAIN Acute decompensated diastolic heart failure. The patient noted to have pulmonary congestion, lower extremity edema. The patient is status post Lasix; will continue- PER NEPHRO cardiology F-UP PT IS IV BUMEX AROUND THE CLOCK History of coronary artery disease, status post coronary artery bypass graft. Continue current medical management. Diabetes. Will continue Accu-Cheks, insulin sliding scale, continue Lantus. HB A1C- 8.1. CONT lantus AND SC Chronic kidney disease stage IIIB/IV. Etiology is multifactorial secondary to diabetes, hypertension. The patient is currently in acute kidney injury as stated above. Continue medical management. Morbid obesity. Continue dietary modification. Dyslipidemia. Continue statin therapy. Obstructive sleep apnea. Continue supplemental oxygen. pulmonary F-UP Hypertension- BETTER CONTROLLED Continue current blood pressure regimen. Will adjust medications as needed. CARDIOLOGY F-UP History of peripheral vascular disease. Continue current medical management. LEGAL BLINDNESS SEVERE DJD/OA WITH CHRONIC PAIN GI PROBLEMS- WITH ABD PAIN, DIARRHEA/ ALTERNATING WITH CONSTIPATION GI F-UP Problems: Consultation Date/Type/Reason Admit Date/Time Jun 09, 2016 at 12:22 Initial Consult Date 06/09/16 Type of Consultation: hemeonc Exam/Review of Systems Vital Signs Vitals Vital Signs Date Time Temp Pulse Resp B/P Pulse Ox O2 Delivery O2 Flow Rate FiO2 07/07/16 16:32 160 07/07/16 15:07 98.2 22 116/55 98 07/07/16 14:18 3.0 07/07/16 14:18 Nasal Cannula 07/05/16 13:10 40 Intake and Output 07/06/16 07/06/16 07/07/16 15:00 23:00 07:00 Intake Total 850 ml Output Total 2000 ml Balance -1150 ml Results Result Diagram: 07/06/16 0609 07/06/16 0609 Results 24 hrs Laboratory Tests Test 07/07/16 13:09 Bedside Glucose 343 H SHARLA SOUSA MD Jul 07, 2016 23:09
--- NOTE | 2016-07-08 10:55 | DS ---
DATE OF ADMISSION: 06/09/2016 DATE OF DISCHARGE: 07/07/2016 HOSPITAL COURSE: This is a 60-year-old female with a past medical history of coronary artery diseas e, status post CABG, history of diabetes, history of CKD stage IV, history of hypertension, morbid o besity, dyslipidemia, who presented to [facility] in mid May with urinary ret ention. The patient at the time of admission also noted to be in acute kidney injury, to be in decompensated heart failure and was admitted to med/surg telemetry for evaluation. During the course of the sandy ent's workup the patient was seen by urologist, Dr. Briceno. A Flynn catheter was placed. The patie nt was placed on urecholine. The patient's urinary retention, improved. In terms of the patient's d iastolic heart failure, they were seen by miller head wet process, . The patient was placed on diureti c therapy with initial clinical improvement. The patient during the hospital course also noted to benson ve a right ovarian cystic mass and was evaluated by Dr. Suarez. A recommendation for surgery was made in order to evaluate to see if this is a malignancy. The patient refused adamantly about surge ry, which was eventually canceled. During the hospital course; however, the patient's clinical stat us decompensated where she went into worsening CHF, respiratory failure requiring aggressive diureti c therapy and management was done by a miller head wet process and security rover at the time. The patient also had an episode of hypoxemia requiring a brief ICU stay as well as underlying sepsis felt to be seco ndary to urinary tract infection. The patient received IV antibiotics for underlying UTI and was se en by infectious disease, Dr. Olmos. The patient's respiratory status clinically improved. She wa s placed on supplemental oxygen and BiPAP at night. After being noncompliant multiple times during t he hospital course the patient agreed to nightly BiPAP and CPAP. The patient also had uncontrolled glucose levels in the hospital course and was seen by Dr. Oconnor. The patient, however, was noncomp liant with diabetic management. Currently, at this time, the patient is requesting to be discharged home. I recommend for the patient to go to a [facility] where she can be more closely monitored. The patient adamantly refuses and stated that she would leave against medical advice. I did speak with a security rover, miller head wet process and infectious disease doctor, who agreed that patient can go ho me and therefore will be discharged home with medical management, home O2, CPAP and oral antibiotics . At the time of discharge, the patient is stable, in no acute distress. FINAL DIAGNOSES: 1. Sepsis secondary to urinary tract infection. 2. Acute hypoxemic hypercapnic respiratory failure secondary to chronic obstructive pulmonary disea se, obstructive sleep apnea, diastolic heart failure. 3. Atrial fibrillation. 4. Nonoliguric acute kidney injury. 5. Chronic kidney disease stage IV. 6. Hyponatremia. 7. Diastolic heart failure. 8. Chronic venous insufficiency changes. 9. Cellulitis. 10. Hypertension. 11. Anemia. 12. Diabetes. 13. Neuropathy. 14. Obstructive sleep apnea. 15. Anemia of chronic disease. 16. Mineral bone disorder. FINAL MEDICATIONS: Please see reconciliation list. Please note I spent over 40 minutes of time preparing the patient's discharge. At time of discharge, the patient is stable, in no acute distress. Please note, the patient to follow up with her primary care physician in [address] Suzy lind in 1 week's time. Please note, I explained in detail to the patient and the patient's at bedside, who agreed w ith the current treatment plan. Dictated By: CRISTA GAINES/BIRGIT Conf#: [id number] DID#: [id number]
== END 2016-07-07 19:45 | disposition home health service (06) | DRG 291 ==
LOC: E/R 09:08 → MS2 12:22 → MS4 06-10 16:05 → TEL 06-10 17:06 → MS1 06-12 14:54 → ICU 06-22 12:29 → TEL 06-22 17:50 → ICU 07-04 23:21 → TEL 07-06 02:37
PROVIDERS: ADMIT Internal Medicine Hematology & Oncology; ATTEND Internal Medicine
PROC: 5A09357 Assistance with Respiratory Ventilation, Less than 24 Consecutive Hours, Continuous Positive Airway Pressure (ICD-10-PCS; principal; 2016-07-04)
DX: I13.0 Hypertensive heart and chronic kidney disease with heart failure and stage 1 through stage 4 chronic kidney disease, or unspecified chronic kidney disease (principal); I50.33 Acute on chronic diastolic (congestive) heart failure; J96.01 Acute respiratory failure with hypoxia; A41.9 Sepsis, unspecified organism; J96.02 Acute respiratory failure with hypercapnia; N18.4 Chronic kidney disease, stage 4 (severe); N17.9 Acute kidney failure, unspecified; E87.0 Hyperosmolality and hypernatremia; L03.115 Cellulitis of right lower limb; E11.22 Type 2 diabetes mellitus with diabetic chronic kidney disease; Z68.41 Body mass index [BMI] 40.0-44.9, adult; N39.0 Urinary tract infection, site not specified; I48.0 Paroxysmal atrial fibrillation; L03.116 Cellulitis of left lower limb; E11.40 Type 2 diabetes mellitus with diabetic neuropathy, unspecified; R33.9 Retention of urine, unspecified; I25.10 Atherosclerotic heart disease of native coronary artery without angina pectoris; E66.01 Morbid (severe) obesity due to excess calories; G47.33 Obstructive sleep apnea (adult) (pediatric); E78.5 Hyperlipidemia, unspecified; N83.201 Unspecified ovarian cyst, right side; I16.0 Hypertensive urgency; D64.9 Anemia, unspecified; E11.51 Type 2 diabetes mellitus with diabetic peripheral angiopathy without gangrene; M19.90 Unspecified osteoarthritis, unspecified site; R19.7 Diarrhea, unspecified; K59.00 Constipation, unspecified; H54.8 Legal blindness, as defined in USA; E11.65 Type 2 diabetes mellitus with hyperglycemia; J44.9 Chronic obstructive pulmonary disease, unspecified; E83.9 Disorder of mineral metabolism, unspecified; D63.8 Anemia in other chronic diseases classified elsewhere; I87.2 Venous insufficiency (chronic) (peripheral); D25.0 Submucous leiomyoma of uterus; E87.5 Hyperkalemia; Z95.1 Presence of aortocoronary bypass graft; Z79.4 Long term (current) use of insulin; Z53.8 Procedure and treatment not carried out for other reasons
CPT/HCPCS: 36415; 36600; 70450; 71010; 72197; 74176; 76775; 76856; 80048; 80053; 80162; 81001; 81003; 82043; 82803; 82947; 82962; 83036; 83605; 83690; 83735; 83880; 84100; 84132; 84145; 84155; 84300; 84484; 85025; 85378; 85610; 85730; 86304; 86850; 86900; 86901; 86920; 87040; 87081; 87086; 88104; 93005; 93306; 94640; 94660; 94664; 96374; 97116; 97162; 97530; J0131; J0360; J1170; J1650; J1815; J1940; J2270; J2543; J2920; J2930; J7070; J7512

== ENCOUNTER 2017-02-03 23:26 | Observation (INO) | payer MEDICAID ==
[~2017-02-03] VITALS: Ht 154.9 cm; Wt 86.0 kg
[~2017-02-03 23:26] MED LIST changes: -AMLO-147 PO; +ASPI-664 PO; -ASPI81TA3 PO; +CANA300T PO; +CLON-379 PO; -CLON0.2T5 PO; -CLON0.5T4 PO; -CRES10 PO; -DOXY100T2 PO; -ESCI20TA PO; +ESOM40CA PO; -FAMO20TA18 PO; -FURO20TA3 PO; +GABA-526 PO; -HYDR-3671 PO; +INSU100C SQ; +LORA1TAB PO; -Miconazole VAG; -NEBI5TAB9 PO; -NYST15PO4 TOP; +PREG150C PO; +VALA500T PO
[2017-02-03] MEDS ORDERED: IPRATROPIUM (NEB) 0.5 MG/2.5 ML AMP INH STA (23:27)
[2017-02-03] MEDS ORDERED: ALBUTEROL 0.5% (NEB) 2.5 MG/0.5 ML AMP INH STA (23:27)
[2017-02-03] MEDS ORDERED: METHYLPREDNISOLONE 125 MG INJ IV STA (23:27)
[2017-02-03 23:54] LABS: BASOPHIL # 0.1 10^3/ul (0.0-0.1); BASOPHILS % 0.5 % (0.0-2.0); EOSINOPHILS # 0.2 10^3/ul (0.0-0.5); EOSINOPHILS % 1.7 % (0.0-7.0); HEMATOCRIT 36.1 % (37.0-47.0); HEMOGLOBIN 10.9 g/dl (12.0-16.0); LYMPHOCYTES # 2.5 10^3/ul (0.8-2.9); LYMPHOCYTES % 25.3 % (15.0-51.0); MEAN CORPUSCULAR HGB CONC 30.2 g/dl (32.0-37.0); MEAN CORPUSCULAR VOLUME 89.6 fl (82.0-101.0); MEAN PLATELET VOLUME 10.3 fl (7.4-10.4); MONOCYTE # 1.1 10^3/ul (0.3-0.9); NEUTROPHILS % 61.2 % (39.0-77.0); PLATELET COUNT 333 10^3/UL (140-415); RED BLOOD COUNT 4.03 10^6/ul (4.20-5.40); RED CELL DISTRIBUTION WIDTH 15.4 % (11.5-14.5); WHITE BLOOD COUNT 9.9 10^3/ul (4.8-10.8)
[2017-02-04] VITALS (10 sets, daily range): BP systolic 126–152; BP diastolic 60–69; PULSE 67–85; RESP 18–19; Ht 154.9 cm; Wt 86.0 kg
[2017-02-04 00:26] LABS: CALCIUM 9.8 mg/dl (8.4-10.2); CREATININE 2.47 mg/dl (0.44-1.00); POTASSIUM 4.1 mmol/L (3.5-5.1)
[2017-02-04] MEDS ORDERED: morphine 4 MG/ML VIAL IV STA (00:34)
[2017-02-04 00:36] LABS: TROPONIN-I 0.024 ng/ml (0.00-0.12)
--- NOTE | 2017-02-04 01:01 | RADRPT ---
PROCEDURE: XR Chest. CLINICAL INDICATION: Chest pain TECHNIQUE: Single frontal view of the chest. COMPARISON: 07/05/2016. FINDINGS: Cardiomegaly. Atherosclerotic calcifications in the tortuous thoracic aorta. Evaluation of the lung bases is limited secondary to patient body habitus, which accentuates pulmonary vascular markings. T he lungs are otherwise clear. No signs of pleural fluid or pneumothorax are seen. The osseous struct ures and soft tissues are unremarkable. IMPRESSION: No evidence for active cardiopulmonary disease. RPTAT: [facility] Physician Sampson Date Time Electronically viewed and signed by Physician Sampson on 02/04/2017 01:00 RS/
--- NOTE | 2017-02-04 01:43 | ERA ---
ER Documentation Chief Complaint Date/Time DATE: 02/04/17 TIME: 01:41 Chief Complaint chest pain <2hrs HPI This is a 61-year-old female with a history of hypertension, CAD, bypass, chronic kidney disease who presents to the emergency room for evaluation of shortness of breath and chest discomfort for the past 2 hours. The patient states that her shortness of breath is slightly improved with her breathing treatments. She does state that she is feeling wheezy at this time. According to EMS they gave this patient a breathing treatment in route and she started to state that she was feeling slightly better ROS All systems reviewed and are negative except as per history of present illness. Medications Home Meds Reported Medications Canagliflozin (Invokana) 300 Mg Tablet, 300 MG PO DAILY, TAB 06/09/16 Gabapentin* (Gabapentin*) 600 Mg Tablet, 600 MG PO TID, #90 TAB 06/09/16 Pregabalin* (Lyrica*) 150 Mg Capsule, 150 MG PO QHS, CAP 06/09/16 Valacyclovir Hcl* (Valacyclovir Hcl*) 500 Mg Tablet, 1000 MG PO BID, TAB 06/09/16 Insulin Lispro (Humalog) 100 Unit/1 Ml Cartridge, 25 UNIT SQ TID 06/09/16 Insulin Glargine* (Lantus*) 100 Unit/Ml Soln, 56 UNIT SC BID, #1 VIAL 06/09/16 Esomeprazole Mag Trihydrate (Nexium) 40 Mg Capsule.dr, 40 MG PO DAILY, #30 CAP 06/09/16 Lorazepam* (Lorazepam*) 1 Mg Tablet, 1-2 MG PO QHS Y for ANXIETY, #30 TAB 06/09/16 Aspirin* (Aspirin* EC) 81 Mg Tablet.dr, 81 MG PO DAILY, TAB 06/09/16 Clonidine Hcl* (Clonidine Hcl*) 0.1 Mg Tab, 0.1 MG PO QHS, TAB 06/09/16 Allergies Allergies: Coded Allergies: Sulfa (Sulfonamide Antibiotics) (Verified Allergy, Mild, 06/24/16) PMhx/Soc History of Surgery: Yes (cabg,renal stent placement) Anesthesia Reaction: No Hx Neurological Disorder: Yes (diabetic vascular disease) Hx Respiratory Disorders: No Hx Cardiac Disorders: Yes (htn, hyperlipidemia,) Hx Psychiatric Problems: Yes (depression,anxiety) Hx Miscellaneous Medical Probl: Yes (CKD stage 4, obesity, DM, CABG, CAD, HTN, nystagmus. ) Hx Alcohol Use: No Hx Substance Use: No Hx Tobacco Use: Yes Smoking Status: Former smoker Physical Exam Vitals Vital Signs Date Time Temp Pulse Resp B/P Pulse Ox O2 Delivery O2 Flow Rate FiO2 02/03/17 23:44 Rebreather 02/03/17 23:40 70 22 99 21 02/03/17 23:31 98.0 67 21 145/81 100 Physical Exam INITIAL VITAL SIGNS: Reviewed by me GENERAL: The patient is well developed, mild respiratory distress HEENT: Pupils equal, round, and reactive to light. EOMI. There is no scleral icterus. NECK: C-spine is soft and supple, there is no meningismus. There is no cervical lymphadenopathy. LUNGS: Wheezing bilaterally HEART: Regular rate and rhythm, no murmurs, clicks, rubs or gallops. ABDOMEN: Soft, non-tender, non-distended. There are bowel sounds in all four quadrants. No rebound or guarding. EXTREMITIES: There is no peripheral cyanosis or edema. No focal swelling or erythema. NEUROLOGICAL: The patient moves all four extremities with 5/5 strength. Cranial nerves II - XII are intact. Normal gait. Alert and oriented SKIN: There is no apparent rash or petechiae. HEME/LYMPHATIC: There is no evidence of excessive bruising or lymphedema. PSYCHIATRIC: The patient does appear to be mildly anxious Result Diagram: 02/03/17 2345 02/03/17 2345 Results 24 hrs Laboratory Tests Test 02/03/17 23:32 02/03/17 23:45 Bedside Glucose 106mg/dL White Blood Count 9.910^3/ul Red Blood Count 4.0310^6/ul Hemoglobin 10.9g/dl Hematocrit 36.1% Mean Corpuscular Volume 89.6fl Mean Corpuscular Hemoglobin 27.0pg Mean Corpuscular Hemoglobin Concent 30.2g/dl Red Cell Distribution Width 15.4% Platelet Count 18269^3/UL Mean Platelet Volume 10.3fl Neutrophils % 61.2% Lymphocytes % 25.3% Monocytes % 11.0% Eosinophils % 1.7% Basophils % 0.5% Nucleated Red Blood Cells % 0.0/100WBC Neutrophils # 6.010^3/ul Lymphocytes # 2.510^3/ul Monocytes # 1.110^3/ul Eosinophils # 0.210^3/ul Basophils # 0.110^3/ul Nucleated Red Blood Cells # 0.010^3/ul Sodium Level 142mmol/L Potassium Level 4.1mmol/L Chloride Level 102mmol/L Carbon Dioxide Level 29mmol/L Anion Gap 15 Blood Urea Nitrogen 38mg/dl Creatinine 2.47mg/dl Glucose Level 105mg/dl Calcium Level 9.8mg/dl Troponin I 0.024ng/ml B-Type Natriuretic Peptide 1960PG/ML Current Medications Medications (Trade) Dose Ordered Sig/Selvin Route PRN Reason Start Time Stop Time Status Last Admin Dose Admin Albuterol (Proventil 0.5% (Neb)) 15 mg ONCE STAT INH 02/03/17 23:27 02/03/17 23:29 DC 02/03/17 23:40 Ipratropium [place] (Atrovent 0.02% (Neb)) 1 mg ONCE STAT INH 02/03/17 23:27 02/03/17 23:29 DC 02/03/17 23:40 Methylprednisolone Sodium Succinate (Solu-Medrol) 125 mg ONCE STAT IV 02/03/17 23:27 02/03/17 23:29 DC 02/03/17 23:38 Morphine Sulfate (morphine) 4 mg ONCE STAT IV 02/04/17 00:34 02/04/17 00:35 DC 02/04/17 00:38 Procedures/MDM EKG: Rate/Rhythm: [Normal Sinus Rhythm] QRS, ST, T-waves: [No changes consistent w/ acute ischemia] Impression: [No evidence of ischemia or arrhythmia] Chest X-ray 1V Interpreted by me: Soft Tissue: No acute abnormalities Bones: No acute abnormalities Mediastinum/Cardiac Silhouette/Lungs: [No acute abnormalities] This 61-year-old female presents to the ER for evaluation of shortness of breath. When I evaluated her she did have wheezing bilaterally. Patient was immediately given a breathing treatment. She was initially refusing a BiPAP machine. This patient did have lab work drawn including a troponin which is negative at this time. After breathing treatment the patient continued to have wheezing bilaterally. The patient will be placed in at this time for COPD, chest pain for serial troponins, breathing treatments overnight. The patient will be admitted under the care of her primary care physician Dr. acosta Departure Diagnosis: Primary Impression: Shortness of breath Additional Impressions: Chronic kidney disease, stage III (moderate) Morbid (severe) obesity due to excess calories Condition: CORIN Villavicencio DO Feb 04, 2017 01:43
[2017-02-04] MEDS ORDERED: ONDANSETRON 4 MG INJ IV PRN ×2 (02:00→02:30)
[2017-02-04] MEDS ORDERED: ACETAMINOPHEN 325 MG TAB PO PRN ×2 (02:00→02:30)
[2017-02-04] MEDS ORDERED: HYDR-3671 PO (02:20)
[2017-02-04] MEDS ORDERED: AMLO5TAB4 PO (02:20)
[2017-02-04] MEDS ORDERED: CLON0.5T4 PO (02:20)
[2017-02-04] MEDS ORDERED: RIVA10TA PO (02:20)
[2017-02-04] MEDS ORDERED: FOLI-49 PO (02:20)
[2017-02-04] MEDS ORDERED: NACL 0.9% 3 ML SYG IV SCH (02:30)
[2017-02-04] MEDS: AZITHROMYCIN 500MG/NS (PMX) 250 ML IV SCH (02:30)
[2017-02-04] MEDS ORDERED: ZOLPIDEM 5 MG TAB PO PRN (02:30)
[2017-02-04] MEDS ORDERED: DEXTROSE 50% 50 ML SYRINGE IV PRN ×2 (03:30)
[2017-02-04] MEDS ORDERED: GLUCOSE GEL 15 GRAM TUBE PO PRN ×2 (03:30)
[2017-02-04] MEDS ORDERED: GLUCOSE GEL 15 GRAM TUBE BUCCAL PRN (03:30)
[2017-02-04] MEDS ORDERED: LORAZEPAM 1 MG TAB PO PRN (03:30)
[2017-02-04] MEDS ORDERED: GLUCAGON 1 MG INJ IM PRN (03:30)
[2017-02-04] MEDS ORDERED: morphine 2 MG INJ IV ONE (03:30)
[2017-02-04] MEDS ORDERED: INSULIN ASPART [NOVOLOG] 3 ML PEN SC ONE (04:15)
[2017-02-04] MEDS: clonAZEPAM 0.5 MG TAB PO SCH ×4 (04:20→20:55)
[2017-02-04] MEDS: ALBUTEROL/IPRATROPIUM (NEB) 3 ML AMP NEB SCH ×5 (05:00→21:00)
[2017-02-04] MEDS ORDERED: NITROGLYCERIN (SL) 0.4 MG TAB SL PRN (06:00)
[2017-02-04] MEDS: PANTOPRAZOLE (EC) 40 MG TAB PO SCH (06:14)
[2017-02-04 07:27] LABS: CK-MB 0.9 ng/ml (0.0-2.4); TROPONIN-I 0.034 ng/ml (0.00-0.12)
[2017-02-04] MEDS: AMLODIPINE 5 MG TAB PO SCH (08:42)
[2017-02-04] MEDS: VALACYCLOVIR 500 MG TAB PO SCH ×2 (08:42→21:00)
[2017-02-04] MEDS: ASPIRIN (EC) 81 MG TAB PO SCH (08:42)
[2017-02-04] MEDS: INSULIN GLARGINE [LANtus] 3 ML PEN SC SCH ×2 (08:42→20:59)
[2017-02-04] MEDS: predniSONE 20 MG TAB PO SCH (08:42)
[2017-02-04] MEDS: RIVAROXABAN 10 MG TABLET PO SCH (08:42)
[2017-02-04] MEDS: FOLIC ACID 1 MG TAB PO SCH (08:42)
[2017-02-04] MEDS: INSULIN ASPART [NOVOLOG] 3 ML PEN SC SCH ×4 (08:43→21:01)
[2017-02-04] MEDS ORDERED: ENOXAPARIN 40 MG/0.4 ML SYG SC SCH (09:00)
[2017-02-04 11:43] LABS: CK-MB 0.89 ng/ml (0.0-2.4); TROPONIN-I 0.023 ng/ml (0.00-0.12)
[2017-02-04] MEDS ORDERED: INSULIN DETEMIR [LEVEMIR] 3ML CART SC SCH ×2 (14:30→18:07)
--- NOTE | 2017-02-04 14:30 | HP ---
Date/Time of Note Date/Time of Note DATE: 02/04/17 TIME: 14:24 Assessment/Plan VTE Prophylaxis VTE Prophylaxis Intervention: ambulation, anti-embolic stocking Lines/Catheters IV Catheter Type (from [facility]): [facility] Assessment/Plan Chief Complaint/Hosp Course 1. resp failure- ? cardiac vs. copd. -ask for cards eval -serial troponin -reviewe cxr 2. cad s/p cabg- resume meds, f/u troponin 3. probable bronchitis- on zpak 4. dm- f/u bs Problems: HPI/ROS Admit Date/Time Admit Date/Time Feb 04, 2017 at 01:41 Hx of Present Illness 61-year-old female with a history of hypertension, CAD, bypass, chronic kidney disease who presents to the emergency room for evaluation of shortness of breath and chest discomfort for the past 2 hours. The patient states that her shortness of breath is slightly improved with her breathing treatments. She does state that she is feeling wheezy at this time. According to EMS they gave this patient a breathing treatment in route and she started to state that she was feeling slightly better ROS Constitutional: fatigue ENT: no complaints Respiratory: shortness of breath, wheezing Cardiovascular: lightheadedness Genitourinary: no complaints Skin: no complaints Neurologic: no complaints Endocrine: no complaints Lymphatic: no complaints Immunologic: no complaints PMH/Family/Social Past Surgical History Past Surgical Hx: angioplasty, coronary bypass surgery, other Social History Alcohol Use: none Smoking Status: Former smoker Drug Use: none Exam/Review of Systems Vital Signs Vitals Vital Signs Date Time Temp Pulse Resp B/P Pulse Ox O2 Delivery O2 Flow Rate FiO2 02/04/17 12:00 75 02/04/17 11:14 98.2 19 126/60 96 02/04/17 07:35 Nasal Cannula 4.0 02/04/17 05:41 36 Intake and Output 02/03/17 02/03/17 02/04/17 15:00 23:00 07:00 Intake Total 500 ml Balance 500 ml Exam Psych: nl mood/affect, no complaints Head: atraumatic, normocephalic Eyes: EOMI, PERRL, nl conjunctiva, nl lids, nl sclera ENMT: nl external ears & nose, nl lips & teeth, nl nasal mucosa & septum Neck: non-tender, supple Respiratory: diminished breath sounds, labored breathing, wheezing Gastrointestinal: nl liver, spleen, non-tender, soft Musculoskeletal: nl extremities to inspection Extremities: normal pulses Labs Result Diagram: 02/03/175 02/03/17 2345 Medications Medications Current Medications Ondansetron HCl (Zofran Inj) 4 mg Q6H PRN IV NAUSEA AND/OR VOMITING; Start 04/11 at 02:30 Acetaminophen (Tylenol Tab) 650 mg Q6H PRN PO PAIN LEVEL 1-3 OR FEVER; Start 02/04/17 at 02:30 Zolpidem Tartrate (Ambien) 5 mg QHS PRN PO SLEEP; Start 02/04/17 at 02:30 Enoxaparin Sodium (Lovenox) 40 mg DAILY SC ; Start 02/04/17 at 09:00; Status Future Hold Prednisone 40 mg 40 mg DAILY PO ; Start 02/04/17 at 09:00 Azithromycin (Zithromax 500mg/ NS (Pmx)) 250 ml @ 250 mls/hr Q24H IV ; Start 02/04/17 at 02:30 Amlodipine Besylate (Norvasc) 5 mg DAILY PO Last administered on 02/04/17 08: 42; Admin Dose 5 MG; Start 02/04/17 at 09:00 Aspirin (Halfprin) 81 mg DAILY PO Last administered on 02/04/17 08:42; Admin Dose 81 MG; Start 02/04/17 at 09:00 Clonazepam (Klonopin) 0.5 mg Q8H PO Last administered on 02/04/17 04:20; Admin Dose 0.5 MG; Start 02/04/17 at 03:30 Clonidine (Catapres) 0.1 mg QHS PO ; Start 02/04/17 at 21:00 Folic Acid (Folic Acid) 1 mg DAILY PO Last administered on 02/04/17 08:42; Admin Dose 1 MG; Start 02/04/17 at 09:00 Hydralazine HCl (Apresoline) 25 mg Q6 PO Last administered on 02/04/17 12:18 ; Admin Dose 25 MG; Start 02/04/17 at 06:00 Insulin Glargine (Lantus) 22 unit BID SC Last administered on 02/04/17 08:42 ; Admin Dose 22 UNIT; Start 02/04/17 at 09:00 Lorazepam (Ativan) nlkj QHS PRN PO ANXIETY; Start 02/04/17 at 03:30 Pregabalin (Lyrica) 150 mg QHS PO ; Start 02/04/17 at 21:00 Rivaroxaban (Xarelto) 10 mg DAILY PO Last administered on 02/04/17 08:42; Admin Dose 10 MG; Start 02/04/17 at 09:00 Valacyclovir HCl (Valtrex) 1,000 mg BID PO Last administered on 02/04/17 08: 42; Admin Dose 1,000 MG; Start 02/04/17 at 09:00 Pantoprazole (Protonix Tab) 40 mg DAILY@06 PO Last administered on 02/04/17 06:14; Admin Dose 40 MG; Start 02/04/17 at 06:00 Diagnostic Test (Pha) (Accu-Chek) 1 ea 02 XX ; Start 02/05/17 at 02:00 Miscellaneous Information 1 ea NOTE XX ; Start 02/04/17 at 03:30 Glucose (Glutose) 15 gm Q15M PRN PO DECREASED GLUCOSE; Start 02/04/17 at 03:30 Glucose (Glutose) 22.5 gm Q15M PRN PO DECREASED GLUCOSE; Start 02/04/17 at 03: 30 Dextrose (D50w Syringe) 25 ml Q15M PRN IV DECREASED GLUCOSE; Start 02/04/17 at 03:30 Dextrose (D50w Syringe) 50 ml Q15M PRN IV DECREASED GLUCOSE; Start 02/04/17 at 03:30 Glucagon (Glucagen) 1 mg Q15M PRN IM DECREASED GLUCOSE; Start 02/04/17 at 03: 30 Glucose (Glutose) 15 gm Q15M PRN BUCCAL DECREASED GLUCOSE; Start 02/04/17 at 03:30 Nitroglycerin (Nitroglycerin (Sl Tab) 0.4 Mg) 1 tab Q5M PRN SL ANGINA; Start 02/04/17 at 06:00 SARAH BETH FOFANA MD Feb 04, 2017 14:30
[2017-02-04] MEDS ORDERED: PREGABALIN 75 MG CAP PO SCH (21:00)
[2017-02-04] MEDS ORDERED: ROSU20TA PO (21:35)
[2017-02-04] MEDS ORDERED: NEBI20TA2 PO (21:35)
[2017-02-04] MEDS ORDERED: DULO20CA43 PO (21:35)
[2017-02-04] MEDS ORDERED: BISACODYL 10 MG SUPP PR PRN (22:00)
[2017-02-04] MEDS ORDERED: DULOXETINE 30 MG CAP DR PO SCH (23:00)
[2017-02-04] MEDS: NEBIVOLOL 5 MG TAB PO SCH (23:00)
[2017-02-04] MEDS ORDERED: ATORVASTATIN 80 MG TAB PO SCH (23:00)
[2017-02-05] VITALS (8 sets, daily range): BP systolic 141–162; BP diastolic 67–73; PULSE 60–67; RESP 17–18
[2017-02-05] MEDS ORDERED: morphine 2 MG INJ IV PRN (01:00)
[2017-02-05] MEDS: DULOXETINE 20 MG CAP DR PO SCH ×2 (01:00→09:00)
[2017-02-05] MEDS: DOCUSATE SODIUM 100 MG CAP PO SCH ×2 (01:12→09:00)
[2017-02-05] MEDS ORDERED: ACCU-CHEK XX SCH ×2 (02:00)
[2017-02-05] MEDS: AZITHROMYCIN 500MG/NS (PMX) 250 ML IV SCH (02:12)
[2017-02-05] MEDS: ALBUTEROL/IPRATROPIUM (NEB) 3 ML AMP NEB SCH ×2 (03:22→08:08)
[2017-02-05] MEDS: clonAZEPAM 0.5 MG TAB PO SCH ×2 (03:30→11:30)
[2017-02-05] MEDS: PANTOPRAZOLE (EC) 40 MG TAB PO SCH (05:52)
[2017-02-05 06:37] LABS: BASOPHILS % 0.3 % (0.0-2.0); EOSINOPHILS # 0.1 10^3/ul (0.0-0.5); EOSINOPHILS % 0.4 % (0.0-7.0); HEMATOCRIT 29.7 % (37.0-47.0); HEMOGLOBIN 9.1 g/dl (12.0-16.0); LYMPHOCYTES % 16.3 % (15.0-51.0); MEAN CORPUSCULAR HEMOGLOBIN 27.7 pg (29.0-33.0); MEAN CORPUSCULAR HGB CONC 30.6 g/dl (32.0-37.0); MEAN CORPUSCULAR VOLUME 90.3 fl (82.0-101.0); MEAN PLATELET VOLUME 10.3 fl (7.4-10.4); MONOCYTE # 1.1 10^3/ul (0.3-0.9); MONOCYTES % 8.9 % (0.0-11.0); NEUTROPHIL # 8.9 10^3/ul (1.6-7.5); NEUTROPHILS % 73.9 % (39.0-77.0); PLATELET COUNT 266 10^3/UL (140-415); RED BLOOD COUNT 3.29 10^6/ul (4.20-5.40); RED CELL DISTRIBUTION WIDTH 15.4 % (11.5-14.5); WHITE BLOOD COUNT 12.1 10^3/ul (4.8-10.8)
[2017-02-05 07:08] LABS: ALBUMIN 3.5 g/dl (3.3-4.9); ALBUMIN/GLOBULIN RATIO 1.29; CREATININE 3.12 mg/dl (0.44-1.00); MAGNESIUM 2.2 mg/dl (1.7-2.5); PHOSPHORUS 6.6 mg/dl (2.5-4.9); TOTAL PROTEIN 6.2 g/dl (6.1-8.1)
[2017-02-05 07:24] LABS: T3 UPTAKE 42.5 % (23.5-40.5)
[2017-02-05 07:40] LABS: THYROID STIMULATING HORMONE 1.3 MIU/L (0.465-4.680)
[2017-02-05] MEDS: INSULIN ASPART [NOVOLOG] 3 ML PEN SC SCH ×2 (08:24→11:50)
[2017-02-05] MEDS: INSULIN GLARGINE [LANtus] 3 ML PEN SC SCH (08:24)
--- NOTE | 2017-02-05 08:46 | CONS ---
Date/Time of Note Date/Time of Note DATE: 02/05/17 TIME: 08:43 Assessment/Plan Assessment/Plan Additional Assessment/Plan ?Bronchitis Atypical chset pain Hx of CABG Hx of Renal Stent CKD HTN Hx of CHF -insists on lasix but has CKD, no clinical CHF at this time - if able to tolerate from [facility], may need lasix local [employer] due to recnrretn CHF in the past -on abx -continue cv meds - will add coreg due to hx of CABG and HTN ooc -no cardiolyte necessary -EF normal in the past Consultation Date/Type/Reason Admit Date/Time Feb 04, 2017 at 01:41 Hx of Present Illness This is a 61-year-old female with a history of hypertension, CAD, bypass, chronic kidney disease who presents to the emergency room for evaluation of shortness of breath and chest discomfort for the past 2 hours. The patient states that her shortness of breath is slightly improved with her breathing treatments. She does state that she is feeling wheezy at this time. According to EMS they gave this patient a breathing treatment in route and she started to state that she was feeling slightly better ENT: no complaints Respiratory: shortness of breath, wheezing Cardiovascular: lightheadedness Genitourinary: no complaints Skin: no complaints Neurologic: no complaints Lymphatic: no complaints Psychological: nl mood/affect, no complaints Immunologic: no complaints Past Surgical History Past Surgical Hx: angioplasty, coronary bypass surgery, other Social History Alcohol Use: none Smoking Status: Former smoker Drug Use: none Exam/Review of Systems Vital Signs Vitals Vital Signs Date Time Temp Pulse Resp B/P Pulse Ox O2 Delivery O2 Flow Rate FiO2 02/05/17 08:12 63 02/05/17 07:48 98.1 18 162/70 97 02/05/17 03:22 4.0 02/04/17 20:00 Nasal Cannula 02/04/17 05:41 36 Intake and Output 02/04/17 02/04/17 02/05/17 15:00 23:00 07:00 Intake Total 600 ml 400 ml Balance 600 ml 400 ml Results Result Diagram: 02/05/17 0604 02/05/17 0604 Results 24 hrs Laboratory Tests Test 02/04/17 10:44 02/04/17 12:15 02/04/17 17:38 02/04/17 20:20 Creatine Kinase 59 Creatine Kinase Index 1.5 Creatinine Kinase MB (Mass) 0.89 Troponin I 0.023 Bedside Glucose 452 *H 313 H 269 H Test 02/05/17 06:04 02/05/17 08:18 White Blood Count 12.1 #H Red Blood Count 3.29 L Hemoglobin 9.1 L Hematocrit 29.7 L Mean Corpuscular Volume 90.3 Mean Corpuscular Hemoglobin 27.7 L Mean Corpuscular Hemoglobin Concent 30.6 L Red Cell Distribution Width 15.4 H Platelet Count 266 # Mean Platelet Volume 10.3 Neutrophils % 73.9 Lymphocytes % 16.3 Monocytes % 8.9 Eosinophils % 0.4 Basophils % 0.3 Nucleated Red Blood Cells % 0.0 Neutrophils # 8.9 H Lymphocytes # 2.0 Monocytes # 1.1 H Eosinophils # 0.1 Basophils # 0.0 Nucleated Red Blood Cells # 0.0 Sodium Level 138 Potassium Level 4.0 Chloride Level 101 Carbon Dioxide Level 27 Anion Gap 14 Blood Urea Nitrogen 63 H Creatinine 3.12 H Glucose Level 194 Calcium Level 9.0 Phosphorus Level 6.6 H Magnesium Level 2.2 Total Bilirubin 0.0 L Direct Bilirubin 0.00 Indirect Bilirubin 0.0 Aspartate Amino Transf (AST/SGOT) 14 L Alanine Aminotransferase (ALT/SGPT) 22 Alkaline Phosphatase 64 Total Protein 6.2 Albumin 3.5 Globulin 2.70 Albumin/Globulin Ratio 1.29 Thyroid Stimulating Hormone (TSH) 1.300 Free Thyroxine Index 3.61 Thyroxine (T4) 8.5 Triiodothyronine (T3) Uptake 42.5 H Bedside Glucose 193 Medications Medications Current Medications Ondansetron HCl (Zofran Inj) 4 mg Q6H PRN IV NAUSEA AND/OR VOMITING; Start 04/11 at 02:30 Acetaminophen (Tylenol Tab) 650 mg Q6H PRN PO PAIN LEVEL 1-3 OR FEVER; Start 02/04/17 at 02:30 Zolpidem Tartrate (Ambien) 5 mg QHS PRN PO SLEEP; Start 02/04/17 at 02:30 Enoxaparin Sodium (Lovenox) 40 mg DAILY SC ; Start 02/04/17 at 09:00; Status Future Hold Prednisone 40 mg 40 mg DAILY PO ; Start 02/04/17 at 09:00 Azithromycin (Zithromax 500mg/ NS (Pmx)) 250 ml @ 250 mls/hr Q24H IV ; Start 02/04/17 at 02:30 Amlodipine Besylate (Norvasc) 5 mg DAILY PO Last administered on 02/04/17 08: 42; Admin Dose 5 MG; Start 02/04/17 at 09:00 Aspirin (Halfprin) 81 mg DAILY PO Last administered on 02/04/17 08:42; Admin Dose 81 MG; Start 02/04/17 at 09:00 Clonazepam (Klonopin) 0.5 mg Q8H PO Last administered on 02/04/17 20:55; Admin Dose 0.5 MG; Start 02/04/17 at 03:30 Clonidine (Catapres) 0.1 mg QHS PO ; Start 02/04/17 at 21:00 Folic Acid (Folic Acid) 1 mg DAILY PO Last administered on 02/04/17 08:42; Admin Dose 1 MG; Start 02/04/17 at 09:00 Hydralazine HCl (Apresoline) 25 mg Q6 PO Last administered on 02/05/17 06:16 ; Admin Dose 25 MG; Start 02/04/17 at 06:00 Insulin Glargine (Lantus) 22 unit BID SC Last administered on 02/05/17 08:24 ; Admin Dose 22 UNIT; Start 02/04/17 at 09:00 Lorazepam (Ativan) nlkj QHS PRN PO ANXIETY; Start 02/04/17 at 03:30 Pregabalin (Lyrica) 150 mg QHS PO ; Start 02/04/17 at 21:00 Rivaroxaban (Xarelto) 10 mg DAILY PO Last administered on 02/04/17 08:42; Admin Dose 10 MG; Start 02/04/17 at 09:00 Valacyclovir HCl (Valtrex) 1,000 mg BID PO Last administered on 02/04/17 08: 42; Admin Dose 1,000 MG; Start 02/04/17 at 09:00 Pantoprazole (Protonix Tab) 40 mg DAILY@06 PO Last administered on 02/04/17 06:14; Admin Dose 40 MG; Start 02/04/17 at 06:00 Diagnostic Test (Pha) (Accu-Chek) 1 ea 02 XX ; Start 02/05/17 at 02:00 Miscellaneous Information 1 ea NOTE XX ; Start 02/04/17 at 03:30 Glucose (Glutose) 15 gm Q15M PRN PO DECREASED GLUCOSE; Start 02/04/17 at 03:30 Glucose (Glutose) 22.5 gm Q15M PRN PO DECREASED GLUCOSE; Start 02/04/17 at 03: 30 Dextrose (D50w Syringe) 25 ml Q15M PRN IV DECREASED GLUCOSE; Start 02/04/17 at 03:30 Dextrose (D50w Syringe) 50 ml Q15M PRN IV DECREASED GLUCOSE; Start 02/04/17 at 03:30 Glucagon (Glucagen) 1 mg Q15M PRN IM DECREASED GLUCOSE; Start 02/04/17 at 03: 30 Glucose (Glutose) 15 gm Q15M PRN BUCCAL DECREASED GLUCOSE; Start 02/04/17 at 03:30 Nitroglycerin (Nitroglycerin (Sl Tab) 0.4 Mg) 1 tab Q5M PRN SL ANGINA; Start 02/04/17 at 06:00 Miscellaneous Medication (Bystolic) 20 mg DAILY PO ; Start 02/04/17 at 23:00 Atorvastatin Calcium (Lipitor) 80 mg DAILY@21 PO ; Start 02/04/17 at 23:00 Bisacodyl (Dulcolax Supp) 10 mg DAILY PRN [place] CONSTIPATION; Start 02/04/17 at 22:00 Docusate Sodium (Colace) 100 mg BID PO Last administered on 02/05/17 01:12; Admin Dose 100 MG; Start 02/04/17 at 23:00 Morphine Sulfate (morphine) 2 mg Q2H PRN IV PAIN Last administered on 01:20; Admin Dose 2 MG; Start 02/05/17 at 01:00 Duloxetine HCl (Cymbalta) 40 mg DAILY PO ; Start 02/05/17 at 01:00 BONIFACIO TRAMMELL MD Feb 05, 2017 08:46
[2017-02-05] MEDS: NEBIVOLOL 5 MG TAB PO SCH (09:00)
[2017-02-05] MEDS: FOLIC ACID 1 MG TAB PO SCH (09:00)
[2017-02-05] MEDS ORDERED: DULOXETINE 20 MG CAP DR PO SCH (09:00)
[2017-02-05] MEDS: AMLODIPINE 5 MG TAB PO SCH (09:00)
[2017-02-05] MEDS: VALACYCLOVIR 500 MG TAB PO SCH (09:00)
[2017-02-05] MEDS: predniSONE 20 MG TAB PO SCH (09:00)
[2017-02-05] MEDS: ASPIRIN (EC) 81 MG TAB PO SCH (09:00)
[2017-02-05] MEDS: RIVAROXABAN 10 MG TABLET PO SCH (09:01)
--- NOTE | 2017-02-05 10:53 | DS ---
Date/Time of Note Date/Time of Note DATE: 02/05/17 TIME: 10:53 Discharge Summary Admission/Discharge Info Admit Date/Time Feb 04, 2017 at 01:41 Discharge Date/Time Patient Condition: Good Hx of Present Illness 61-year-old female with a history of hypertension, CAD, bypass, chronic kidney disease who presents to the emergency room for evaluation of shortness of breath and chest discomfort for the past 2 hours. The patient states that her shortness of breath is slightly improved with her breathing treatments. She does state that she is feeling wheezy at this time. According to EMS they gave this patient a breathing treatment in route and she started to state that she was feeling slightly better Hospital Course This is a 61-year-old female with a history of hypertension, CAD, bypass, chronic kidney disease who presents to the emergency room for evaluation of shortness of breath and chest discomfort for the past 2 hours. The patient states that her shortness of breath is slightly improved with her breathing treatments. She does state that she is feeling wheezy at this time. According to EMS they gave this patient a breathing treatment in route and she started to state that she was feeling slightly better Home Meds Reported Medications Rosuvastatin Calcium* (Crestor*) 20 Mg Tablet, 20 MG PO QHS, #30 TAB 02/04/17 Duloxetine Hcl* (Cymbalta*) 20 Mg Capsule.dr, 40 MG PO DAILY, CAP 02/04/17 Nebivolol Hcl* (Bystolic*) 20 Mg Tablet, 20 MG PO DAILY, #30 TAB 02/04/17 Rivaroxaban* (Xarelto*) 10 Mg Tablet, 10 MG PO DAILY, TAB 02/04/17 Folic Acid* (Folic Acid*) 1 Mg Tablet, 1 MG PO DAILY, TAB 02/04/17 Amlodipine Besylate* (Norvasc*) 5 Mg Tablet, 5 MG PO DAILY, TAB 02/04/17 Hydralazine Hcl* (Hydralazine Hcl*) 25 Mg Tab, 25 MG PO Q6, #120 TAB 02/04/17 Clonazepam* (Clonazepam*) 0.5 Mg Tablet, 0.5 MG PO Q8H for ANXIETY, TAB 02/04/17 Pregabalin* (Lyrica*) 150 Mg Capsule, 150 MG PO QHS, CAP 06/09/16 Valacyclovir Hcl* (Valacyclovir Hcl*) 500 Mg Tablet, 1000 MG PO BID, TAB 06/09/16 Insulin Lispro (Humalog) 100 Unit/1 Ml Cartridge, 0 SQ TID 06/09/16 Insulin Glargine* (Lantus*) 100 Unit/Ml Soln, 22 UNIT SC BID, #1 VIAL 06/09/16 Esomeprazole Mag Trihydrate (Nexium) 40 Mg Capsule.dr, 40 MG PO DAILY, #30 CAP 06/09/16 Lorazepam* (Lorazepam*) 1 Mg Tablet, 1-2 MG PO QHS Y for ANXIETY, #30 TAB 06/09/16 Aspirin* (Aspirin* EC) 81 Mg Tablet.dr, 81 MG PO DAILY, TAB 06/09/16 Clonidine Hcl* (Clonidine Hcl*) 0.1 Mg Tab, 0.1 MG PO QHS, TAB 06/09/16 Discontinued Reported Medications Canagliflozin (Invokana) 300 Mg Tablet, 300 MG PO DAILY, TAB 06/09/16 Gabapentin* (Gabapentin*) 600 Mg Tablet, 600 MG PO TID, #90 TAB 06/09/16 Primary Care Provider Jessica Suarez MD Time spent on discharge: < 30 minutes Pending Labs Laboratory Tests Test 02/04/17 12:15 02/04/17 17:38 02/04/17 20:20 02/05/17 06:04 Bedside Glucose 452mg/dL (70-220) 313mg/dL (70-220) 269mg/dL (70-220) White Blood Count 12.110^3/ul (4.8-10.8) Red Blood Count 3.2910^6/ul (4.20-5.40) Hemoglobin 9.1g/dl (12.0-16.0) Hematocrit 29.7% (37.0-47.0) Mean Corpuscular Volume 90.3fl (82.0-101.0) Mean Corpuscular Hemoglobin 27.7pg (29.0-33.0) Mean Corpuscular Hemoglobin Concent 30.6g/dl (32.0-37.0) Red Cell Distribution Width 15.4% (11.5-14.5) Platelet Count 57966^3/UL (140-415) Mean Platelet Volume 10.3fl (7.4-10.4) Neutrophils % 73.9% (39.0-77.0) Lymphocytes % 16.3% (15.0-51.0) Monocytes % 8.9% (0.0-11.0) Eosinophils % 0.4% (0.0-7.0) Basophils % 0.3% (0.0-2.0) Nucleated Red Blood Cells % 0.0/100WBC (0.0-0.0) Neutrophils # 8.910^3/ul (1.6-7.5) Lymphocytes # 2.010^3/ul (0.8-2.9) Monocytes # 1.110^3/ul (0.3-0.9) Eosinophils # 0.110^3/ul (0.0-0.5) Basophils # 0.010^3/ul (0.0-0.1) Nucleated Red Blood Cells # 0.010^3/ul (0.0-0.0) Sodium Level 138mmol/L (135-144) Potassium Level 4.0mmol/L (3.5-5.1) Chloride Level 101mmol/L (97-110) Carbon Dioxide Level 27mmol/L (21-31) Anion Gap 14 (8-16) Blood Urea Nitrogen 63mg/dl (7-20) Creatinine 3.12mg/dl (0.44-1.00) Glucose Level 194mg/dl (70-220) Calcium Level 9.0mg/dl (8.4-10.2) Phosphorus Level 6.6mg/dl (2.5-4.9) Magnesium Level 2.2mg/dl (1.7-2.5) Total Bilirubin 0.0mg/dl (0.2-1.3) Direct Bilirubin 0.00mg/dl (0.00-0.20) Indirect Bilirubin 0.0mg/dl (0-1.1) Aspartate Amino Transf (AST/SGOT) 14IU/L (15-46) Alanine Aminotransferase (ALT/SGPT) 22IU/L (13-69) Alkaline Phosphatase 64IU/L (42-121) Total Protein 6.2g/dl (6.1-8.1) Albumin 3.5g/dl (3.3-4.9) Globulin 2.70g/dl (1.3-3.2) Albumin/Globulin Ratio 1.29 Thyroid Stimulating Hormone (TSH) 1.300MIU/L (0.465-4.680) Free Thyroxine Index 3.61ug/ml (0.65-3.89) Thyroxine (T4) 8.5ug/dl (5.5-11.0) Triiodothyronine (T3) Uptake 42.5% (23.5-40.5) Test 02/05/17 08:18 Bedside Glucose 193mg/dL (70-220) SARAH BETH FOFANA MD Feb 05, 2017 10:53
== END 2017-02-05 14:05 | disposition home health service (06) ==
LOC: E/R 23:26 → TEL 02-04 01:41
PROVIDERS: ADMIT Internal Medicine; ATTEND Internal Medicine
DX: R07.89 Other chest pain (principal); I25.10 Atherosclerotic heart disease of native coronary artery without angina pectoris; Z95.1 Presence of aortocoronary bypass graft; Z88.2 Allergy status to sulfonamides; I12.9 Hypertensive chronic kidney disease with stage 1 through stage 4 chronic kidney disease, or unspecified chronic kidney disease; E11.22 Type 2 diabetes mellitus with diabetic chronic kidney disease; N18.9 Chronic kidney disease, unspecified; Z79.4 Long term (current) use of insulin
CPT/HCPCS: 36415; 71010; 80048; 80053; 82550; 82553; 82962; 83735; 83880; 84100; 84436; 84443; 84479; 84484; 85025; 87081; 93005; 94644; 94664; 96374; 96375; J0456; J1815; J2270; J2930; J7512; Z7500; Z7502; Z7610; G0378; J1650

== ENCOUNTER 2018-04-08 04:48 | Inpatient (IN) | END 2018-04-17 19:25 | disposition home or self-care (01) | DRG 291 ==